=== PATIENT | female | born 1975 ===

== ENCOUNTER → 2020-08-07 11:06 | Outpatient (BNVA) | payer MEDICAID, SELFPAY | PROVIDERS: PCP Nurse Practitioner Family; Referring Provider Nurse Practitioner Family; Visit Provider Nurse Practitioner Gerontology | DX: E11.65 Type 2 diabetes mellitus with hyperglycemia (principal); I10 Essential (primary) hypertension; E78.5 Hyperlipidemia, unspecified; Z79.84 Long term (current) use of oral hypoglycemic drugs | CPT/HCPCS: 99213 ==

== ENCOUNTER 2020-09-09 10:24 | Outpatient (REF) | payer MEDICAID, SELFPAY | END 2020-09-09 10:25 | disposition home or self-care (01) | LOC: HO.LAB 10:24 | PROVIDERS: PCP Registered Nurse; Visit Provider Internal Medicine | DX: Z20.828 Contact with and (suspected) exposure to other viral communicable diseases (principal) | CPT/HCPCS: C9803; U0003 ==

== ENCOUNTER → 2020-09-16 09:39 | Outpatient (BNVA) | payer MEDICAID, SELFPAY | PROVIDERS: Visit Provider Advanced Practice Midwife | DX: Z30.42 Encounter for surveillance of injectable contraceptive (principal) | CPT/HCPCS: 96372; 99211; J1050 ==

== ENCOUNTER 2020-09-17 14:30 | Outpatient (REF) | payer MEDICAID, SELFPAY ==
--- NOTE | 2020-09-17 | CT_ITS ---
EXAMINATION: CT HEAD WITHOUT CONTRAST CLINICAL INFORMATION: Tension headaches. COMPARISON: Brain MRI November 18, 2017. TECHNIQUE: Contiguous axial imaging was performed from the skull base to vertex without intravenous administration of contrast. This CT examination was performed using dose optimization techniques as appropriate, variously including the following: *Automated exposure control *Adjustment of mA and/or kV according to patient size (this includes techniques or standardized protocols for targeted exams where dose is matched to indication/reason for exam; i.e. extremities or head) *Use of iterative reconstruction technique DLP: 799 mGy-cm. FINDINGS: There is no intracranial hemorrhage, extra-axial collection, mass effect, or territorial infarction. The ventricles are normal in size and configuration without evidence of hydrocephalus. The cerebellar tonsils are normally positioned above the foramen magnum. The sella is partially empty. The paranasal sinuses and mastoid air cells are clear. The orbital contents are unremarkable. CT/CT head/brain wo con IMPRESSION: No intracranial abnormality identified.
== END 2020-09-17 14:31 | disposition home or self-care (01) ==
LOC: HO.CT 14:30
PROVIDERS: PCP Registered Nurse; Visit Provider Psychiatry & Neurology Neurology
DX: G43.909 Migraine, unspecified, not intractable, without status migrainosus (principal); G44.209 Tension-type headache, unspecified, not intractable
CPT/HCPCS: 70450

== ENCOUNTER 2021-01-03 17:06 | Emergency (ER) | payer MEDICAID, SELFPAY ==
[2021-01-03 17:11] VITALS: BP 137/81; PULSE 95; RESP 16; TEMP 36.6; O2SAT 97; BMI 27.4
[2021-01-03 17:40] LABS: Appearance Urine HAZY; Color Urine YELLOW; Glucose Urine UA >=1000 MG/DL (NEG); Leukocyte Esterase Urine NEG (NEG); Nitrite Urine NEG (NEG); PH 7.5 (5.0-8.0); Urine Blood TRACE (NEG); Urine Ketones NEG (NEG); Urine Protein NEG (NEG-TRACE)
[2021-01-03 17:57] LABS: Bacteria Urine 1+ /LPF; Squamous Epithelial Cell Urine 1+ /LPF
[2021-01-03 20:12] VITALS: BP 129/78; PULSE 98; RESP 15; TEMP 36.6; O2SAT 100
--- NOTE | 2021-01-03 21:03 | ED.FEMALEGU ---
HPI - Female Genitourinary General Chief complaint: Urogenital-Female Stated complaint: Infection pain Time Seen by Provider: 01/03/21 20:53 Source: patient Mode of arrival: ambulatory Limitations: no limitations History of Present Illness HPI Narrative: Patient comes emergency room complaining of vulvar and labial swelling and discharge. Patient states that yesterday she noticed that the outer labia started becoming itchy, erythematous, and had a whitish thick discharge on the outside. Patient denies vaginal discharge, no bleeding, no suprapubic pain, no abdominal pain. Patient is known to be diabetic Related Data Home Medications Medication Instructions Recorded Confirmed albuterol sulfate 90 mcg/actuation 2 puff INHALATION Q4-6H PRN 08/07/20 08/07/20 aerosol inhaler atorvastatin 20 mg tablet 20 mg PO DAILY 08/07/20 08/07/20 blood sugar diagnostic #10 ea 08/07/20 08/07/20 cetirizine 10 mg capsule 10 mg PO DAILY 08/07/20 08/07/20 cyclobenzaprine 5 mg tablet 5 mg PO BEDTIME PRN 08/07/20 08/07/20 gabapentin 300 mg capsule 300 mg PO TID 08/07/20 08/07/20 lancets 28 gauge #100 ea 08/07/20 08/07/20 lisinopril 5 mg tablet 5 mg PO DAILY 08/07/20 08/07/20 metformin 500 mg tablet 500 mg PO BID 08/07/20 08/07/20 sertraline 50 mg tablet 50 mg PO DAILY 08/07/20 08/07/20 Previous Rx's Medication Instructions Recorded canagliflozin 100 mg tablet 100 mg PO QAM #30 tab 12/14/20 dulaglutide 1.5 mg/0.5 mL 1.5 mg SUBCUT QWEEK 28 Days #2 ml 12/23/20 subcutaneous pen injector clotrimazole [Antifungal 1 appl TOPICAL TID #45 g 01/03/21 (clotrimazole)] Allergies Allergy/AdvReac Type Severity Reaction Status Date / Time No Known Allergies Allergy Verified 08/07/20 11:15 Review of Systems Review of Systems: Constitutional : No Weight loss, No Fever, No Chills, No Night Sweats, No Fatigue, No Malaise ENT/Mouth : No Hearing loss, No Ear Pain, No Nasal Congestion, No Sinus Pain, No Hoarseness, No sore throat, No Rhinorrhea, No Swallowing Difficulty Eyes: No Eye Pain, No Swelling, No Redness, No Foreign Body, No Discharge, No Vision Changes Cardiovascular : No Chest Pain, No SOB, No Dyspnea on Exertion, No Orthopnea, No Edema, No Palpitations Respiratory : No Cough, No Sputum, No Wheezing, No Smoke Exposure, No Dyspnea Gastrointestinal : No Nausea, No Vomiting, No Diarrhea, No Constipation, No abdominal Pain, No Hematochezia, No Melena Genitourinary : no irregular bleeding, No Dysuria, No Urinary Frequency, No Hematuria, No Urinary Incontinence, No Urgency, No Flank Pain, No Urinary Flow Changes, No Hesitancy, complaining of over and labial itching, redness and swelling, and thick white discharge Musculoskeletal : No joint pain, No Myalgias, No Joint Swelling Skin : No Skin Lesions, No rash Neuro : No Weakness, No Numbness, No Paresthesias, No Loss of Consciousness, No Dizziness, No Headache Psych : No Anxiety/Panic, No Depression, No SI/HI/AH/VH, No Social Issues, Heme/Lymph: No Bruising, No Bleeding,No Lymphadenopathy Endocrine : No Polyuria, No Polydipsia, No Temperature Intolerance PMFSH Past Medical History Medical History Chronic migraine Depression Essential hypertension Hyperlipidemia LDL goal <100 Iron deficiency Plantar fasciitis Type 2 diabetes mellitus with hyperglycemia Surgical History Hx of tubal ligation Family History Family History (Updated 08/07/20 @ 11:16 by ZAKIA Humphrey) Father No problems noted. Mother HTN (hypertension) Maternal Grandfather HTN (hypertension) Myocardial infarct Maternal Grandmother Diabetes Maternal Aunt Diabetes Social History Social History (Updated 08/06/20 @ 08:39 by LEO Berrios) Alcohol intake: never Smoking Status: Never smoker Use of substances other than those prescribed or required for medical reasons: No Advance Directives: No Advance Directives Information Provided: No Physical Exam Vital Signs: Vital Signs: Last Vital Signs Temp 97.9 F 01/03/21 20:12 Pulse 90 01/03/21 22:11 Resp 16 01/03/21 22:11 BP 151/89 H 01/03/21 22:11 Pulse Ox 98 01/03/21 22:11 Body Mass Index 27.4 Appearance: Alert. Oriented X3. No acute distress. Eyes: Pupils equal, round and reactive to light. ENT: Pharynx normal. Neck: Normal inspection. Neck supple. No lymph nodes noted. No crepitus CVS: Normal heart rate and rhythm. Pulses normal. Normal S1 and S2 Respiratory: No respiratory distress. Breath sounds normal. No Wheezing. No rales Abdomen: Soft and nontender. No rigidity. No distention. good BS x4 : No vulvar discharged observed, labia majora and minora are erythematous, swollen, discharged in labia minora consistent with candidiasis, right-sided inguinal lymphadenopathy present Skin: Skin warm and dry. Normal skin color. Normal skin turgor. Extremities: No lower extremity edema. No lower extremity edema. No Lacerations. No Rash Neuro: Oriented X 3. No motor deficit. No sensory deficit. Moving all extermities. No slurred speech. Course Course Course Narrative: Labs were ordered due to patient's lymphadenopathy. No white blood cell count, sepsis not suspected, no cellulitis suspected, no Kenneth's gangrene suspected either. LFTs slightly elevated which are chronic, unlikely to have any adverse effects from 1 dose of fluconazole. Patient received 1 dose of oral fluconazole, patient will be given a prescription for home, both treatments recommended since the candidiasis is extensive, unlikely to have good results with topical antifungal by itself. MDM - Female Genitourinary Lab Data Result diagrams: 01/03/21 21:15 01/03/21 21:15 Labs: Lab Results 01/03/21 01/03/21 01/03/21 Range/Units 17:28 17:28 21:15 WBC 7.2 (4.8-10.8) X10*3/uL RBC 4.95 (4.20-5.50) X10*6/uL Hgb 12.8 (12.0-16.0) g/dl Hct 40.3 (37-47) % MCV 81.4 (80-98) fL MCH 25.9 L (27.0-33.0) pg MCHC 31.8 (31.0-35.0) g/dl RDW 13.6 (11.0-16.0) % Plt Count 302 (160-400) X10*3/uL MPV 9.9 (9.4-12.3) fL Immature Gran % (Auto) 0.3 (0.0-0.4) % Neut % (Auto) 76.7 H (45-73) % Lymph % (Auto) 15.8 L (20-40) % Zapata % (Auto) 5.7 (2-11) % Eos % (Auto) 1.2 (0-4) % Baso % (Auto) 0.3 (0-2) % Lymph # (Auto) 1.1 L (1.2-4.9) X10*3/uL Zapata # (Auto) 0.4 (0.1-1.2) X10*3/uL Eos # (Auto) 0.1 (0.0-0.4) X10*3/uL Baso # (Auto) 0.0 (0.0-0.2) X10*3/uL Abs Immat Gran (auto) 0.02 (0.00-0.03) X10*3/uL Absolute Neuts (auto) 5.6 (2.0-8.3) X10*3/uL Absolute Nucleated RBC 0.000 (0.0-0.012) X10*3/uL Nucleated RBC % (auto) 0.0 (0.0-0.2) /100WBC Sodium (135-145) mmol/L Potassium (3.3-5.1) mmol/L Chloride (96-108) mmol/L Carbon Dioxide (22-29) mmol/L Anion Gap (12-20) BUN (9-16) mg/dL Creatinine (0.5-1.4) mg/dL Estim Creat Clear Calc Estimated GFR Random Glucose (60-115) mg/dL Calcium (8.4-10.2) mg/dL Total Bilirubin (0.0-1.0) mg/dL Direct Bilirubin (0.0-0.5) mg/dL AST (5-31) U/L ALT (0-31) U/L Alkaline Phosphatase (39-117) U/L Total Protein (6.5-8.0) g/dL Albumin (3.5-5.0) g/dL Urine Color YELLOW Urine Appearance HAZY Urine pH 7.5 (5.0-8.0) Ur Specific Edmond 1.020 (1.005-1.025) Urine Protein NEG (NEG-TRACE) MG/DL Urine Glucose (UA) >=1000 H (NEG) MG/DL Urine Ketones NEG (NEG) MG/DL Urine Blood TRACE (NEG) Urine Nitrite NEG (NEG) Ur Leukocyte Esterase NEG (NEG) Urine RBC 1-4 (0) /HPF Urine WBC 1-4 (0-4) /HPF Ur Squamous Epith Cells 1+ /LPF Urine Bacteria 1+ /LPF Urine Test NEGATIVE (NEGATIVE) 01/03/21 Range/Units 21:15 WBC (4.8-10.8) X10*3/uL RBC (4.20-5.50) X10*6/uL Hgb (12.0-16.0) g/dl Hct (37-47) % MCV (80-98) fL MCH (27.0-33.0) pg MCHC (31.0-35.0) g/dl RDW (11.0-16.0) % Plt Count (160-400) X10*3/uL MPV (9.4-12.3) fL Immature Gran % (Auto) (0.0-0.4) % Neut % (Auto) (45-73) % Lymph % (Auto) (20-40) % Zapata % (Auto) (2-11) % Eos % (Auto) (0-4) % Baso % (Auto) (0-2) % Lymph # (Auto) (1.2-4.9) X10*3/uL Zapata # (Auto) (0.1-1.2) X10*3/uL Eos # (Auto) (0.0-0.4) X10*3/uL Baso # (Auto) (0.0-0.2) X10*3/uL Abs Immat Gran (auto) (0.00-0.03) X10*3/uL Absolute Neuts (auto) (2.0-8.3) X10*3/uL Absolute Nucleated RBC (0.0-0.012) X10*3/uL Nucleated RBC % (auto) (0.0-0.2) /100WBC Sodium 139 (135-145) mmol/L Potassium 4.7 (3.3-5.1) mmol/L Chloride 100 (96-108) mmol/L Carbon Dioxide 25 (22-29) mmol/L Anion Gap 19 (12-20) BUN 15 (9-16) mg/dL Creatinine 0.75 (0.5-1.4) mg/dL Estim Creat Clear Calc 97.2 Estimated GFR > 60 Random Glucose 159 H (60-115) mg/dL Calcium 9.3 (8.4-10.2) mg/dL Total Bilirubin < 0.2 (0.0-1.0) mg/dL Direct Bilirubin < 0.2 (0.0-0.5) mg/dL AST 57 H (5-31) U/L ALT 87 H (0-31) U/L Alkaline Phosphatase 122 H (39-117) U/L Total Protein 7.8 (6.5-8.0) g/dL Albumin 4.4 (3.5-5.0) g/dL Urine Color Urine Appearance Urine pH (5.0-8.0) Ur Specific Edmond (1.005-1.025) Urine Protein (NEG-TRACE) MG/DL Urine Glucose (UA) (NEG) MG/DL Urine Ketones (NEG) MG/DL Urine Blood (NEG) Urine Nitrite (NEG) Ur Leukocyte Esterase (NEG) Urine RBC (0) /HPF Urine WBC (0-4) /HPF Ur Squamous Epith Cells /LPF Urine Bacteria /LPF Urine Test (NEGATIVE) Discharge Plan Discharge Clinical Impression: Vaginal candidiasis Patient Disposition: Home, Self-Care Instructions: Yeast Infection (ED) Additional Instructions: Please follow-up with your primary care physician tomorrow. If you have any worsening or new symptoms, please return to the emergency room or call 911 Prescriptions: New clotrimazole [Antifungal (clotrimazole)] 1 % cream 1 appl topical TID Qty: 45 RF: 0 No Action canagliflozin [Invokana] 100 mg tablet 100 mg PO QAM Qty: 30 RF: 2 Trulicity 1.5 mg/0.5 mL pen injector 1.5 mg subcut QWEEK 28 Days Qty: 2 RF: 2 lisinopril 5 mg tablet 5 mg PO DAILY RF: 0 atorvastatin 20 mg tablet 20 mg PO DAILY RF: 0 metformin 500 mg tablet 500 mg PO BID RF: 0 (DME) lancets [FreeStyle Lancets] 28 gauge misc See Rx Instructions .ROUTE .MEDSUPPLY Qty: 100 RF: 0 (DME) FreeStyle Lite Strips Strip See Rx Instructions .ROUTE .MEDSUPPLY Qty: 10 RF: 0 gabapentin 300 mg capsule 300 mg PO TID RF: 0 cyclobenzaprine 5 mg tablet 5 mg PO BEDTIME PRNRF: 0 Zyrtec 10 mg capsule 10 mg PO DAILY RF: 0 sertraline [Zoloft] 50 mg tablet 50 mg PO DAILY RF: 0 albuterol sulfate [ProAir HFA] 90 mcg/actuation HFA aerosol inhaler 2 puff inhalation Q4-6H PRNRF: 0
--- NOTE | 2021-01-03 21:04 | PC.NURSE ---
at bedside for evaluation. Patient has a yeast infection and swollen lymph node in her right inner groin. Blood work ordered.
[2021-01-03 21:20] LABS: MANUAL DIFF FLAG NO
[2021-01-03 21:23] LABS: Basophils Percent Auto 0.3 % (0-2); Eosinophils Absolute Auto 0.1 X10*3/uL (0.0-0.4); Eosinophils Percent Auto 1.2 % (0-4); Hematocrit 40.3 % (37-47); Hemoglobin 12.8 g/dl (12.0-16.0); Imm Gran Abs Auto 0.02 X10*3/uL (0.00-0.03); Imm Gran Pct Auto 0.3 % (0.0-0.4); Lymphocytes Absolute Auto 1.1 X10*3/uL (1.2-4.9); Lymphocytes Percent Auto 15.8 % (20-40); Mean Corpuscular HGB Conc 31.8 g/dl (31.0-35.0); Mean Corpuscular Hemoglobin 25.9 pg (27.0-33.0); Mean Corpuscular Volume 81.4 fL (80-98); Mean Platelet Volume 9.9 fL (9.4-12.3); Monocytes Absolute Auto 0.4 X10*3/uL (0.1-1.2); Monocytes Percent Auto 5.7 % (2-11); Neutrophils Absolute Auto 5.6 X10*3/uL (2.0-8.3); Neutrophils Percent Auto 76.7 % (45-73); Platelet Count 302 X10*3/uL (160-400); Red Blood Count 4.95 X10*6/uL (4.20-5.50); Red Cell Distribution Width 13.6 % (11.0-16.0); White Blood Count 7.2 X10*3/uL (4.8-10.8)
[2021-01-03 21:45] LABS: Alanine Aminotransferase 87 U/L (0-31); Albumin Level 4.4 g/dL (3.5-5.0); Alkaline Phosphatase 122 U/L (39-117); Anion Gap 19 (12-20); Aspartate Amino Transferase 57 U/L (5-31); Bilirubin Direct < 0.2 mg/dL (0.0-0.5); Bilirubin Total < 0.2 mg/dL (0.0-1.0); Blood Urea Nitrogen 15 mg/dL (9-16); Calcium 9.3 mg/dL (8.4-10.2); Carbon Dioxide 25 mmol/L (22-29); Chloride 100 mmol/L (96-108); Creatinine Clr Calc Pharmacy 97.2; Estimated Glomerular Filt Rate > 60; Glucose Random 159 mg/dL (60-115); Potassium 4.7 mmol/L (3.3-5.1); Sodium 139 mmol/L (135-145); Total Protein 7.8 g/dL (6.5-8.0)
[2021-01-03 22:11] VITALS: BP 151/89; PULSE 90; RESP 16; O2SAT 98
[2021-01-03 22:11] LABS: UPreg QC Valid YES; Urine Pregnancy NEGATIVE (NEGATIVE)
[2021-01-03] MEDS: Fluconazole 150 MG TABLET PO (23:57)
== END 2021-01-04 00:52 | disposition home or self-care (01) ==
PROVIDERS: Emergency Provider Emergency Medicine
DX: B37.3 Candidiasis of vulva and vagina (principal); R59.1 Generalized enlarged lymph nodes; I10 Essential (primary) hypertension; E11.9 Type 2 diabetes mellitus without complications; E78.5 Hyperlipidemia, unspecified
CPT/HCPCS: 36415; 80048; 80076; 81001; 81025; 85025; 99284

== ENCOUNTER 2021-03-31 10:44 | Outpatient (REF) | payer MEDICAID, SELFPAY ==
[2021-03-31 11:35] LABS: Estimated Average Glucose 200 mg/dL; Hemoglobin A1c % 8.6 %
[2021-03-31 12:12] LABS: Creatinine Urine 165.31 mg/dL; Microalbum/Creatinine Ratio Ur 24.8 ug/mg cr
[2021-03-31 12:12] LABS: Alanine Aminotransferase 25 U/L (0-31); Albumin Level 4.9 g/dL (3.5-5.0); Alkaline Phosphatase 94 U/L (39-117); Anion Gap 15 (12-20); Aspartate Amino Transferase 26 U/L (5-31); Bilirubin Total 0.6 mg/dL (0.0-1.0); Blood Urea Nitrogen 14 mg/dL (9-16); Calcium 9.9 mg/dL (8.4-10.2); Carbon Dioxide 21 mmol/L (22-29); Chloride 105 mmol/L (96-108); Cholesterol 157 mg/dL; Estimated Glomerular Filt Rate > 60; Glucose Fasting 110 mg/dL (60-99); HDL Cholesterol 62 mg/dL; LDL Cholesterol Calculated 84 mg/dl; Potassium 4.7 mmol/L (3.3-5.1); Sodium 136 mmol/L (135-145); Triglycerides 57 mg/dL
[2021-03-31 12:40] LABS: Vitamin B12 759 pg/mL (200-900)
[2021-04-01 06:31] LABS: LDL Cholesterol Direct 75 mg/dL (<100)
== END 2021-03-31 10:45 | disposition home or self-care (01) ==
LOC: HO.LAB 10:44
PROVIDERS: PCP Registered Nurse; Visit Provider Nurse Practitioner Gerontology
DX: E11.65 Type 2 diabetes mellitus with hyperglycemia (principal); E78.5 Hyperlipidemia, unspecified; I10 Essential (primary) hypertension; Z79.899 Other long term (current) drug therapy
CPT/HCPCS: 36415; 80053; 80061; 82043; 82607; 82947; 83036; 83721; 99212

== ENCOUNTER 2021-04-06 03:15 | Emergency (ER) | payer MEDICAID, SELFPAY ==
[2021-04-06 03:22] VITALS: BP 131/76; PULSE 80; RESP 18; TEMP 35.8; O2SAT 97; BMI 27.4
== END 2021-04-06 06:44 | disposition left against medical advice (07) ==
PROVIDERS: Emergency Provider Emergency Medicine
DX: R07.89 Other chest pain (principal)
CPT/HCPCS: 99281; 99282

== ENCOUNTER → 2021-04-15 11:23 | Outpatient (BNVA) | payer MEDICAID, SELFPAY | PROVIDERS: Visit Provider Advanced Practice Midwife ==

== ENCOUNTER 2021-05-07 09:48 | Outpatient (REF) | payer MEDICAID, SELFPAY ==
--- NOTE | ~2021-05-07 | XR_ITS ---
EXAMINATION: XR CERVICAL SPINE CLINICAL INFORMATION: Localized edema. COMPARISON: None TECHNIQUE: Three views of the cervical spine were obtained. FINDINGS: There is normal cervical lordosis. The vertebral heights, alignment and disc heights are normal. No visible acute fracture, dislocation or subluxation seen. The prevertebral soft tissues are normal. There is mild bilateral narrowing of C4-C5 neural foramina from uncovertebral hypertrophic changes. The rest of the neural foramina are patent. No visible acute fracture, dislocation or lytic process seen. The prevertebral soft tissues are normal. XR/XR cervical spine 4V IMPRESSION: Mild bilateral narrowing of C4-C5 neural foramina from uncovertebral hypertrophic changes. No visible acute fracture, dislocation or lytic process seen.
== END 2021-05-07 09:49 | disposition home or self-care (01) ==
LOC: HO.XRAY 09:48
PROVIDERS: Visit Provider Emergency Medicine
DX: R60.0 Localized edema (principal)
CPT/HCPCS: 72050

== ENCOUNTER 2021-05-13 02:45 | Emergency (ER) | payer MEDICAID, SELFPAY ==
[2021-05-13 03:46] VITALS: BP 123/69; PULSE 76; RESP 16; TEMP 36.4; O2SAT 98; BMI 26.9
--- NOTE | 2021-05-13 04:31 | PC.NURSE ---
PT TO ROOM, CHG INTO GOWN, WARM BLK PROVIDED WITH PILLOW, LIGHTS DIM. PT AWAITING FOR MD'S EVAL.
--- NOTE | 2021-05-13 05:31 | ED_ITS ---
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 Patient states that she was evaluated in her primary care provider's office yesterday and was provided with her usual prescription which head otherwise ran out. On further questioning patient states that she has medication for her headache and she is primarily concerned about her sore throat which has been associated with runny nose, cough. Otherwise, patient denies any speech/visual/auditory/motor dysfunction associated with her migraine. Related Data Home Medications Medication Instructions Recorded Confirmed albuterol sulfate 90 mcg/actuation 2 puff INHALATION Q4-6H PRN 08/07/20 03/31/21 aerosol inhaler (ProAir HFA) atorvastatin 20 mg tablet 20 mg PO DAILY 08/07/20 03/31/21 cetirizine 10 mg capsule (Zyrtec) 10 mg PO DAILY 08/07/20 03/31/21 cyclobenzaprine 5 mg tablet 5 mg PO BEDTIME PRN 08/07/20 03/31/21 gabapentin 300 mg capsule 300 mg PO TID 08/07/20 03/31/21 lisinopril 5 mg tablet 5 mg PO DAILY 08/07/20 03/31/21 metformin 500 mg tablet 500 mg PO BID 08/07/20 03/31/21 sertraline 50 mg tablet (Zoloft) 50 mg PO DAILY 08/07/20 03/31/21 Previous Rx's Medication Instructions Recorded clotrimazole 1 % topical cream 1 appl TOPICAL TID #45 g 01/03/21 (Antifungal (clotrimazole)) lancets 33 gauge (TRUEplus Lancets) 1 gauge MISCELLANEOUS TID #100 ea 02/08/21 blood sugar diagnostic (FreeStyle 1 strip MISCELLANEOUS TID #100 02/17/21 Lite Strips) strip dulaglutide 1.5 mg/0.5 mL 1.5 mg SUBCUT QWEEK 28 Days #2 ml 03/07/21 subcutaneous pen injector (Trulicity) canagliflozin 300 mg tablet 300 mg PO QAM #30 tab 03/31/21 (Invokana) Allergies Allergy/AdvReac Type Severity Reaction Status Date / Time No Known Allergies Allergy Verified 04/15/21 11:24 Review of Systems Review of Systems: Pertinent positives and negatives as stated in HPI 10 point review of systems is otherwise negative. [facility] Past Medical History Source: nursing notes reviewed Medical History Chronic migraine Depression Essential hypertension Hyperlipidemia LDL goal <100 Iron deficiency Plantar fasciitis Type 2 diabetes mellitus with hyperglycemia Surgical History Hx of tubal ligation Family History Family History Father No problems noted. Mother HTN (hypertension) Maternal Grandfather HTN (hypertension) Myocardial infarct Maternal Grandmother Diabetes Maternal Aunt Diabetes Social History Social History Household Members: Children Alcohol intake: never Patient Tobacco Use Status: Never used Tobacco Advance Directives: No Advance Directives Information Provided: No Patient : No Physical Exam Vital Signs: Vital Signs: Last Vital Signs Temp 97.6 F 05/13/21 03:46 Pulse 76 05/13/21 03:46 Resp 16 05/13/21 03:46 BP 123/69 05/13/21 03:46 Pulse Ox 98 05/13/21 03:46 Body Mass Index 26.9 VITAL SIGNS: Reviewed. GENERAL: Well developed, well nourished, in no acute distress. HEAD: Normocephalic/atraumatic EYES: PERRLA, EOMI EARS: Ext canals without abnormality, TMs non-bulging and non-erythematous NOSE: Nasal congestion OROPHARYNX: no oral lesions noted, posterior pharynx erythematous with noted tonsillar enlargement/erythema NECK: Supple, no adenopathy LUNGS: Normal breath sounds. No adventitious sounds or accessory muscle use. SpO2<98> CARDIOVASCULAR: Regular rate and rhythm without noted murmurs ABDOMEN: Soft, non-tender, non-distended with bowel sounds. SKIN: Inspection of the skin reveals no rashes NEUROLOGIC: Alert and oriented x 4. Strength and sensation to light touch were grossly intact x 4, no pronator drift, no facial asymmetry Course Course Course Narrative: 45-year-old female with history and clinical presentation c onsistent with currently well managed migraine symptoms and low clinical suspicion for any neurologic abnormality. In addition, patient has sore throat consistent with likely allergic rhinitis, but will rule out less likely strep pharyngitis. On review of all investigations there are no acute findings to suggest strep pharyngitis and patient will be provided with recommendations for allergic rhi nitis and follow-up with her primary care provider. Medical Decision Making Lab Data Labs: Lab Results 05/13/21 05/13/21 Range/Units 05:44 05:51 POC Glucose 166 H (60-115) mg/dL S. pyogenes GrpA MYRON Negative (Negative) Discharge Plan Discharge Clinical Impression: Allergic rhinitis, Post-nasal drip, Migraine Patient Disposition: Home, Self-Care Instructions: Allergic Rhinitis (ED), Postnasal Drip (DC), Pharyngitis (ED), Loratadine (By mouth), Fluticasone (Into the nose) Additional Instructions: 1. Reanude todos los medicamentos caseros seg?n lo prescrito. 2. Recomiende hacer g?rgaras con soluci?n salina (esto se hace combinando tyler de fernandez con agua tibia del grifo) y hacer g?rgaras yessenia 5 minutos, dos veces al d?a, yessenia 3 d?as. 3. Se recomienda comenzar con Claritin y Flonase de venta zulema en vanita de sospecha de s?ntomas relacionados con la alergia. 4. Nicholas un seguimiento con valdez proveedor de atenci?n primaria para jacquie reevaluaci?n y un tratamiento ambulatorio adicional. Regrese a la umang de emergencias por un empeoramiento dayday de los s?ntomas. Prescriptions: No Action lancets [TRUEplus Lancets] 33 gauge misc 1 gauge miscellaneous TID Qty: 100 RF: 11 blood sugar diagnostic [FreeStyle Lite Strips] Strip 1 strip miscellaneous TID Qty: 100 RF: 11 Trulicity 1.5 mg/0.5 mL pen injector 1.5 mg subcut QWEEK 28 Days Qty: 2 RF: 2 clotrimazole [Antifungal (clotrimazole)] 1 % cream 1 appl topical TID Qty: 45 RF: 0 lisinopril 5 mg tablet 5 mg PO DAILY RF: 0 atorvastatin 20 mg tablet 20 mg PO DAILY RF: 0 metformin 500 mg tablet 500 mg PO BID RF: 0 gabapentin 300 mg capsule 300 mg PO TID RF: 0 cyclobenzaprine 5 mg tablet 5 mg PO BEDTIME PRNRF: 0 Zyrtec 10 mg capsule 10 mg PO DAILY RF: 0 sertraline [Zoloft] 50 mg tablet 50 mg PO DAILY RF: 0 albuterol sulfate [ProAir HFA] 90 mcg/actuation HFA aerosol inhaler 2 puff inhalation Q4-6H PRNRF: 0 Invokana 300 mg tablet 300 mg PO QAM Qty: 30 RF: 3 Referrals: [facility] [Primary Care Provider] - 2 days Print Language: Italian
[2021-05-13] MEDS: Ketorolac Tromethamine 15 MG/ML VIAL IM (05:47)
[2021-05-13] MEDS: Acetaminophen 325 MG TABLET 975 MG PO (05:47)
[2021-05-13 05:49] LABS: Glucose, Whole Blood 166 mg/dL (60-115)
[2021-05-13 06:03] LABS: IDNOW Serial# 9DD0AD1C; Strep A Nucleic Acid Negative (Negative)
== END 2021-05-13 06:41 | disposition home or self-care (01) ==
PROVIDERS: Emergency Provider Student in an Organized Health Care Education/Training Program
DX: J30.9 Allergic rhinitis, unspecified (principal); G43.909 Migraine, unspecified, not intractable, without status migrainosus; Z79.899 Other long term (current) drug therapy
CPT/HCPCS: 36415; 82947; 87651; 96372; 99283; 99284; J1885

== ENCOUNTER 2021-05-26 08:34 | Outpatient (REF) | payer MEDICAID, SELFPAY ==
--- NOTE | ~2021-05-26 | XR_ITS ---
EXAMINATION: XR CHEST CLINICAL INFORMATION: Cough COMPARISON: Chest x-ray July 15, 2019 TECHNIQUE: 2 views of the chest were obtained. FINDINGS: Cardiac silhouette is normal in size. The lungs are well aerated. There is no lobar consolidation. No pleural effusion or pneumothorax. No acute osseous abnormality. XR/XR chest 2V IMPRESSION: Stable examination demonstrating no acute pulmonary pathology.
== END 2021-05-26 08:35 | disposition home or self-care (01) ==
LOC: HO.XRAY 08:34
PROVIDERS: Absent Provider Registered Nurse; PCP Registered Nurse; Visit Provider Nurse Practitioner Family
DX: R05 Cough (principal)
CPT/HCPCS: 71046

== ENCOUNTER → 2022-04-19 13:15 | Outpatient (BNVA) | payer MEDICAID, SELFPAY | PROVIDERS: PCP General Practice; Referring Provider Registered Nurse; Visit Provider Nurse Practitioner Family | DX: K21.9 Gastro-esophageal reflux disease without esophagitis (principal); R19.7 Diarrhea, unspecified; E55.9 Vitamin D deficiency, unspecified; K59.04 Chronic idiopathic constipation; Z12.11 Encounter for screening for malignant neoplasm of colon; R10.13 Epigastric pain; Z79.899 Other long term (current) drug therapy | CPT/HCPCS: 99202; 99212 ==

== ENCOUNTER 2022-05-15 04:48 | Emergency (ER) | payer MEDICAID, SELFPAY ==
[2022-05-15 05:56] VITALS: BP 135/77; PULSE 96; RESP 22; TEMP 36.8; O2SAT 96; BMI 25.8
--- NOTE | 2022-05-15 06:53 | ED.GENADULT ---
HPI - General Adult General Chief complaint: General Medical Stated complaint: covid+ , vomiting, congestion, body aches Time Seen by Provider: 05/15/22 06:03 Source: patient, family (Son) and safety and health manager Mode of arrival: ambulatory History of Present Illness HPI narrative: 46-year-old female with history of diabetes and hypertension presents after a family event in [facility] with her son and complaints of not feeling well since Monday on their return from [place] and expresses that she has had body aches, cough, sore throat and congestion. Home COVID-19 test were positive. Patient is vaccinated for COVID Related Data Home Medications Medication Instructions Recorded Confirmed albuterol sulfate 90 mcg/actuation 2 puff inhalation Q4-6H PRN 08/07/20 04/19/22 aerosol inhaler (ProAir HFA) atorvastatin 20 mg tablet 20 mg PO DAILY 08/07/20 04/19/22 cetirizine 10 mg capsule (Zyrtec) 10 mg PO DAILY 08/07/20 04/19/22 cyclobenzaprine 5 mg tablet 5 mg PO BEDTIME PRN 08/07/20 04/19/22 gabapentin 300 mg capsule 300 mg PO TID 08/07/20 03/31/21 lisinopril 5 mg tablet 5 mg PO DAILY 08/07/20 04/19/22 metformin 500 mg tablet 500 mg PO BID 08/07/20 04/19/22 sertraline 50 mg tablet (Zoloft) 50 mg PO DAILY 08/07/20 04/19/22 aluminum-mag hydroxide-simethicone 5 ml PO QID PRN 04/19/22 04/19/22 400 mg-400 mg-40 mg/5 mL oral susp (Mylanta Maximum Strength) Previous Rx's Medication Instructions Recorded clotrimazole 1 % topical cream 1 appl topical TID #45 grams 01/03/21 (Antifungal (clotrimazole)) blood sugar diagnostic (FreeStyle 1 strip miscellaneous TID for 02/17/21 Lite Strips) diabetes mellitus #100 strips dulaglutide 1.5 mg/0.5 mL 1.5 mg (0.5 mL) subcut QWEEK #2 mL 02/04/22 subcutaneous pen injector (Trulicity) canagliflozin 300 mg tablet 300 mg PO QAM #30 tabs 02/09/22 (Invokana) lancets 33 gauge (TRUEplus Lancets) 1 gauge miscellaneous TID for 02/16/22 diabetes mellitus #100 ea docusate sodium 100 mg capsule 100 mg PO BEDTIME #90 caps 04/19/22 famotidine 40 mg tablet 40 mg PO BEDTIME #90 tabs 04/19/22 pantoprazole 40 mg tablet,delayed 40 mg PO DAILY #90 tabs 04/19/22 release sennosides 8.6 mg tablet (Natural 8.6 mg PO BEDTIME constipation #90 04/19/22 Senna Laxative) tabs benzonatate 200 mg capsule 200 mg PO TID PRN cough #10 caps 05/15/22 Allergies Allergy/AdvReac Type Severity Reaction Status Date / Time No Known Allergies Allergy Verified 04/19/22 13:30 Review of Systems Review of Systems: Pertinent positives and negatives as stated in HPI 10 point review of systems is otherwise negative PMFSH Past Medical History Source: nursing notes reviewed Medical History Chronic migraine Depression Essential hypertension Hyperlipidemia LDL goal <100 Iron deficiency Plantar fasciitis Type 2 diabetes mellitus with hyperglycemia Surgical History Hx of tubal ligation Family History Family History Father No problems noted. Mother HTN (hypertension) Maternal Grandfather HTN (hypertension) Myocardial infarct Maternal Grandmother Diabetes Maternal Aunt Diabetes Social History Social History Household Members: Children Alcohol intake: never Patient Tobacco Use Status: Never used Tobacco Advance Directives: No Advance Directives Information Provided: No Physical Exam ED Vital Signs: Vital Signs - 24 hr 05/15/22 05:56 Temperature 98.3 F Pulse Rate 96 Respiratory Rate 22 H Blood Pressure 135/77 Pulse Oximetry 96 Oxygen Delivery Method Room Air BMI result Body Mass Index 25.8 VITAL SIGNS: Reviewed. GENERAL: Well developed, well nourished, in no acute distress. HEAD: Normocephalic/atraumatic EYES: PERRLA, EOMI EARS: Ext canals without abnormality OROPHARYNX: no oral lesions noted, posterior pharynx clear LUNGS: Normal breath sounds. No adventitious sounds or accessory muscle use. SpO2<96> CARDIOVASCULAR: Regular rate and rhythm without noted murmurs ABDOMEN: Soft, non-tender, non-distended with bowel sounds. MUSCULOSKELETAL: No tenderness, deformities, or effusions noted on gross inspection. EXTREMITIES: No cyanosis, clubbing or edema. SKIN: Inspection of the skin reveals no rashes NEUROLOGIC: Alert and oriented x 4. Strength and sensation to light touch were grossly intact x 4. Course Course Course Narrative: 46-year-old female with positive COVID-19 exposure and home test showing positive COVID-19 with symptoms of viral syndrome. On review of all investigations patient is noted to be confirmed to be COVID-19 positive. Patient received cough medicine as well as antipyretics and analgesics. She is otherwise discharged home in stable condition. Medical Decision Making Lab Data Labs: Lab Results 05/15/22 Range/Units 07:05 COVID-19 ([facility]) Positive A (Negative) COVID-19 Clin Com See Note Discharge Plan Discharge Clinical Impression: Viral syndrome, Type 2 diabetes mellitus with hyperglycemia, Essential hypertension, Lab test positive for detection of COVID-19 virus Patient Disposition: Home, Self-Care Instructions: Viral Syndrome (ED), COVID-19 (Coronavirus Disease 2019) (ED) Additional Instructions: 1. Reanudar todos los medicamentos caseros seg?n lo prescrito. Elaine Tylenol/ibuprofeno de venta zulema seg?n sea necesario para randall corporales, randall de calvin, fiebre superior a 100.4. 2. Le mclean diagnosticado COVID-19 y debe aislarse yessenia los pr?ximos 5 d?as y luego seguir todas las [facility] y de [place] para la cuarentena y el regreso al trabajo. 3. Seguimiento con valdez proveedor de atenci?n primaria en los pr?ximos 1 o 2 d?as para jacquie reevaluaci?n a blake?s de jacquie shara de telemedicina. Regrese a la umang de emergencias por cualquier empeoramiento dayday de los s?ntomas. Prescriptions: New benzonatate 200 mg capsule 200 mg PO TID PRN (Reason: cough) Qty: 10 0RF No Action blood sugar diagnostic [FreeStyle Lite Strips] Strip 1 strip miscellaneous TID Qty: 100 11RF Trulicity 1.5 mg/0.5 mL pen injector 1.5 mg subcut QWEEK Qty: 2 0RF Invokana 300 mg tablet 300 mg PO QAM Qty: 30 4RF lancets [TRUEplus Lancets] 33 gauge misc 1 gauge miscellaneous TID Qty: 100 11RF clotrimazole [Antifungal (clotrimazole)] 1 % cream 1 appl topical TID Qty: 45 0RF Rx Instructions: Until better lisinopril 5 mg tablet 5 mg PO DAILY atorvastatin 20 mg tablet 20 mg PO DAILY metformin 500 mg tablet 500 mg PO BID gabapentin 300 mg capsule 300 mg PO TID cyclobenzaprine 5 mg tablet 5 mg PO BEDTIME PRN Zyrtec 10 mg capsule 10 mg PO DAILY sertraline [Zoloft] 50 mg tablet 50 mg PO DAILY albuterol sulfate [ProAir HFA] 90 mcg/actuation HFA aerosol inhaler 2 puff inhalation Q4-6H PRN alum-mag hydroxide-simeth [Mylanta Maximum Strength] 400-400-40 mg/5 mL suspension 5 ml PO QID PRN docusate sodium 100 mg capsule 100 mg PO BEDTIME Qty: 90 3RF pantoprazole 40 mg tablet,delayed release (DR/EC) 40 mg PO DAILY Qty: 90 2RF Rx Instructions: take one tablet half an hour before breakfast sennosides [Natural Senna Laxative] 8.6 mg tablet 8.6 mg PO BEDTIME Qty: 90 3RF famotidine 40 mg tablet 40 mg PO BEDTIME Qty: 90 3RF Referrals: Lissy Gracia MD [Primary Care Provider] - Stand Alone Forms: Work/School Release Print Language: Albanian
[2022-05-15] MEDS: Acetaminophen 325 MG TABLET 975 MG PO (07:01)
[2022-05-15] MEDS: Ibuprofen 400 MG TABLET PO (07:02)
[2022-05-15 07:30] LABS: COVID-19 Test Positive (Negative)
[2022-05-15] MEDS: Benzonatate 100 MG CAPSULE 200 MG PO (07:44)
== END 2022-05-15 08:16 | disposition home or self-care (01) ==
PROVIDERS: Emergency Medicine; Emergency Provider Student in an Organized Health Care Education/Training Program; PCP General Practice
DX: U07.1 COVID-19 (principal); R05.9 Cough, unspecified; M79.10 Myalgia, unspecified site; E11.9 Type 2 diabetes mellitus without complications; I10 Essential (primary) hypertension; Z79.899 Other long term (current) drug therapy; Z79.4 Long term (current) use of insulin
CPT/HCPCS: 87635; 99283

== ENCOUNTER → 2022-06-22 12:10 | Outpatient (BNVA) | payer MEDICAID, SELFPAY | PROVIDERS: PCP General Practice; Visit Provider Nurse Practitioner Family | DX: K21.9 Gastro-esophageal reflux disease without esophagitis (principal); K59.04 Chronic idiopathic constipation; Z79.899 Other long term (current) drug therapy | CPT/HCPCS: 99212 ==

== ENCOUNTER 2022-06-28 11:56 | Outpatient (REF) | payer MEDICAID, SELFPAY ==
[2022-06-28 14:02] LABS: TSH reflex Free T4 1.78 uIU/mL (0.32-4.0)
[2022-06-28 14:19] LABS: Folate 14.4 ng/mL (> or = 4.0); Vitamin B12 420 pg/mL (200-900)
[2022-07-04 16:06] LABS: Vitamin D 25-OH, D2 <4 ng/mL; Vitamin D 25-OH, D3 40 ng/mL; Vitamin D 25-OH, Total 40 ng/mL (30-100)
== END 2022-06-28 11:57 | disposition home or self-care (01) ==
LOC: HO.LAB 11:56
PROVIDERS: PCP General Practice; Visit Provider Nurse Practitioner Family
DX: R19.7 Diarrhea, unspecified (principal); E55.9 Vitamin D deficiency, unspecified
CPT/HCPCS: 36415; 82306; 82607; 82746; 84443

== ENCOUNTER 2022-06-30 15:42 | Outpatient (REF) | payer MEDICAID, SELFPAY ==
--- NOTE | ~2022-06-30 | MM_ITS ---
EXAMINATION: MM SCREENING DIGITAL BREAST TOMOSYNTHESIS, BILATERAL CLINICAL INFORMATION: Screening. Asymptomatic. The lifetime risk of breast cancer based on the Tyrer-Cuzick Model is 20%. COMPARISON: Mammography: 10/30/2018, 10/10/2017, 09/29/2016 TECHNIQUE: Digital breast tomosynthesis is performed in both the craniocaudal and mediolateral oblique views along with computer-aided detection (CAD). Synthesized 2D images are generated from the tomosynthesis. FINDINGS: There are scattered areas of fibroglandular density (ACR BI-RADS breast composition Category b). There are no significant masses, abnormal calcifications, or other abnormalities. Parenchymal pattern is similar to prior studies. The axilla and skin contours are unremarkable. MM/MM tomosynthesis screening BI IMPRESSION: No mammographic evidence of malignancy. ASSESSMENT: BI-RADS 1: Negative RECOMMENDATION: Routine annual mammography screening. This patient's information was entered into a reminder system with a target due date for their next mammogram.
== END 2022-06-30 15:43 | disposition home or self-care (01) ==
LOC: HO.MAMMO 15:42
PROVIDERS: PCP General Practice; Visit Provider General Practice
DX: Z12.31 Encounter for screening mammogram for malignant neoplasm of breast (principal)
CPT/HCPCS: 77063; 77067

== ENCOUNTER → 2022-08-18 14:25 | Outpatient (BNVA) | payer MEDICAID, SELFPAY | PROVIDERS: PCP General Practice; Visit Provider Surgery Vascular Surgery | DX: I83.12 Varicose veins of left lower extremity with inflammation (principal) | CPT/HCPCS: 99212 ==

== ENCOUNTER 2022-09-12 09:53 | Outpatient (REF) | payer MEDICAID, SELFPAY ==
[2022-09-15 04:59] LABS: HPV 16 RNA NOT DETECTED (NOT DETECTED); HPV mRNA E6/E7 rflx Detected (Not Detected)
== END 2022-09-12 09:54 | disposition home or self-care (01) ==
LOC: HO.LNP 09:53
PROVIDERS: Visit Provider Advanced Practice Midwife
DX: Z01.419 Encounter for gynecological examination (general) (routine) without abnormal findings (principal)
CPT/HCPCS: 87624; 87625; 88142

== ENCOUNTER → 2022-09-21 08:00 | Outpatient (BNVA) | payer MEDICAID, SELFPAY | PROVIDERS: PCP General Practice; Referring Provider General Practice; Visit Provider Nurse Practitioner Family | DX: Z01.818 Encounter for other preprocedural examination (principal); K59.04 Chronic idiopathic constipation; K21.9 Gastro-esophageal reflux disease without esophagitis | CPT/HCPCS: 99212 ==

== ENCOUNTER 2023-04-21 09:56 | Outpatient (REF) | payer MEDICAID, SELFPAY ==
[2023-04-22 12:43] LABS: BV Int Neg Control Negative (Negative); BV Int Pos Control Positive (Positive)
== END 2023-04-21 09:57 | disposition home or self-care (01) ==
LOC: HO.LNP 09:56
PROVIDERS: PCP General Practice; Visit Provider Advanced Practice Midwife
DX: N89.8 Other specified noninflammatory disorders of vagina (principal); B37.31 Acute candidiasis of vulva and vagina; E11.65 Type 2 diabetes mellitus with hyperglycemia
CPT/HCPCS: 87480; 87510; 87660; 99212

== ENCOUNTER 2023-05-04 13:07 | Outpatient (AMB) | payer MEDICAID, SELFPAY ==
[2023-05-04 13:21] VITALS: BMI 26.8
--- NOTE | 2023-05-04 13:21 | AM.OFFVISNUR ---
Intake Vital Signs 05/04/23 13:21 Height 5 ft 6 in Weight 75.353 kg BMI 26.8 Intake Visit Reasons: DEPO Allergies No Known Allergies Allergy (Verified 04/21/23 10:09) Nursing Note Irene is here for her restart of Depo-Provera for heavy menstrual bleeding. LMP 05/02/23. Pt has also had TL. Follo wup in 12 weeks for next Depo-provera inj. Pt verbs understanding Office Procedures Depo Questionnaire If YES to any of the following questions, please consult a provider. Date of last injection: 05/04/23 Date of last menstrual period: 05/02/23 Date of last gynecology exam: 04/21/23 Menstrual pattern since last injection has been: Not Applicable Irregular bleeding?: Not Applicable Breast lumps or other breast changes?: Not Applicable Changes in weight or appetite?: Not Applicable Depression or changes in mood?: Not Applicable Abnormal hair growth or loss?: Not Applicable Skin problems (rash, acne, discoloration)?: Not Applicable Pain at the injection site?: Not Applicable Headaches?: Not Applicable Nervousness?: Not Applicable Abdominal pain or cramping?: Not Applicable Dizziness or nausea?: Not Applicable Fatigue or weakness?: Not Applicable Decrease in sexual drive?: Not Applicable Chest pain or shortness of breath?: Not Applicable Swelling in arms or legs?: Not Applicable Any other problems or concerns?: Initiation of Depo-Provera Form completed by?: Christa Mckee LPN Office Meds Depo-Provera Performing Provider: Clare Jackson CNM Administered by: Miroslava Mckee LPN on 05/04/23 13:22 Dose Route Admin Location Lot Number Expiration Date [facility] Training Lead 150 mg IM left deltoid [id number] 10/14/24 01381-775-75 MYLAN Coding Level of Care Code Established Pt Est Pt Level 1 (71048) Patient Type Established History Problem Focused Exam Problem Focused Medical Decision Making Straight Forward Diagnoses Time Spent (min) 15 Assessment & Plan Assessment & Plan Orders: Orders AMB Medroxyprogesterone Injection Patient Supplied Today N92.0 - Excessive and frequent menstruation with regular cycle
== END 2023-05-04 13:17 | disposition home or self-care (01) ==
LOC: HO.HWS 13:07
PROVIDERS: PCP General Practice; Visit Provider Advanced Practice Midwife
DX: N92.0 Excessive and frequent menstruation with regular cycle (principal)

== ENCOUNTER → 2023-05-04 13:07 | Outpatient (BNVA) | payer MEDICAID, SELFPAY | PROVIDERS: PCP General Practice; Visit Provider Advanced Practice Midwife | DX: N92.0 Excessive and frequent menstruation with regular cycle (principal) | CPT/HCPCS: 96372; 99211; J1050 ==

== ENCOUNTER 2023-06-05 | Outpatient (REF) | payer MEDICAID, SELFPAY ==
[2023-06-06 12:20] LABS: Influenza A PCR NEGATIVE (Negative); Influenza B PCR NEGATIVE (Negative); Resp Syncy Virus RNA Qual PCR NEGATIVE (Negative); SARS COV2 PCR INHOUSE NEGATIVE (Negative)
== END 2023-06-05 00:01 | disposition home or self-care (01) ==
LOC: HO.HHCLNP
PROVIDERS: Visit Provider Pediatrics
DX: Z20.822 Contact with and (suspected) exposure to COVID-19 (principal); J02.9 Acute pharyngitis, unspecified
CPT/HCPCS: 0241U; 87070

== ENCOUNTER 2023-06-05 14:09 | Outpatient (REF) | payer MEDICAID, SELFPAY ==
--- NOTE | ~2023-06-05 | XR_ITS ---
EXAMINATION: XR CERVICAL SPINE CLINICAL INFORMATION: Neck pain COMPARISON: Previous x-ray April 2023 TECHNIQUE: 3 views of the cervical spine were obtained. FINDINGS: The head is tilted to the right. Bone alignment is otherwise normal. No fracture or dislocation. Normal disc spaces. It may be bilateral facet arthritis. Normal prevertebral soft tissues. XR/XR cervical spine 3V IMPRESSION: Head tilt to the right.
== END 2023-06-05 14:10 | disposition home or self-care (01) ==
LOC: HO.XRAY 14:09
PROVIDERS: Absent Provider General Practice; PCP General Practice; Visit Provider Student in an Organized Health Care Education/Training Program
DX: M54.2 Cervicalgia (principal)
CPT/HCPCS: 72040

== ENCOUNTER 2023-11-06 14:30 | Outpatient (REF) | payer MEDICAID, SELFPAY ==
[2023-11-06 16:18] LABS: MANUAL DIFF FLAG NO
[2023-11-06 16:24] LABS: Basophils Percent Auto 0.3 % (0-2); Eosinophils Absolute Auto 0.1 X10*3/uL (0.0-0.4); Eosinophils Percent Auto 0.7 % (0-4); Hematocrit 39.6 % (37.0-47.0); Hemoglobin 12.5 g/dl (12.0-16.0); Imm Gran Abs Auto 0.03 X10*3/uL (0.00-0.03); Imm Gran Pct Auto 0.3 % (0.0-0.4); Lymphocytes Absolute Auto 2.1 X10*3/uL (1.2-4.9); Lymphocytes Percent Auto 23.7 % (20-40); Mean Corpuscular HGB Conc 31.6 g/dl (31.0-35.0); Mean Corpuscular Hemoglobin 25.8 pg (27.0-33.0); Mean Corpuscular Volume 81.6 fL (80.0-98.0); Mean Platelet Volume 10.7 fL (9.4-12.3); Monocytes Absolute Auto 0.5 X10*3/uL (0.1-1.2); Monocytes Percent Auto 5.3 % (2-11); Neutrophils Percent Auto 69.7 % (45-73); Platelet Count 378 X10*3/uL (160-400); Red Blood Count 4.85 X10*6/uL (4.20-5.50); Red Cell Distribution Width 13.5 % (11.0-16.0); White Blood Count 8.7 X10*3/uL (4.8-10.8)
[2023-11-06 17:57] LABS: Creatinine Urine 59.51 mg/dL; Microalbum/Creatinine Ratio Ur 23.5 ug/mg cr (<30)
[2023-11-06 18:04] LABS: Alanine Aminotransferase 19 U/L (0-31); Albumin Level 4.7 g/dL (3.5-5.0); Alkaline Phosphatase 99 U/L (39-117); Anion Gap 15 (12-20); Aspartate Amino Transferase 14 U/L (5-31); Bilirubin Total 0.2 mg/dL (0.0-1.0); Blood Urea Nitrogen 19 mg/dL (9-16); Calcium 9.9 mg/dL (8.4-10.2); Carbon Dioxide 23 mmol/L (22-29); Chloride 107 mmol/L (96-108); Estimated Glomerular Filt Rate > 60; Glucose Random 189 mg/dL (60-115); Sodium 141 mmol/L (135-145); Total Protein 8.3 g/dL (6.5-8.0)
== END 2023-11-06 14:31 | disposition home or self-care (01) ==
LOC: HO.HHCL 14:30
PROVIDERS: Visit Provider General Practice
DX: E61.1 Iron deficiency (principal); E11.59 Type 2 diabetes mellitus with other circulatory complications
CPT/HCPCS: 36415; 80053; 82043; 82570; 85025

== ENCOUNTER 2023-11-20 01:00 | Emergency (ER) | payer MEDICAID, SELFPAY ==
--- NOTE | ~2023-11-20 | XR_ITS ---
EXAMINATION: XR CHEST CLINICAL INFORMATION: Dyspnea COMPARISON: 05/26/2021 TECHNIQUE: Frontal view of the chest was obtained. FINDINGS: The lungs are clear with no focal consolidation. No evidence of pneumothorax, pulmonary edema, or pleural effusions. The cardiomediastinal silhouette is unremarkable. No acute osseous findings. XR/XR chest 1V IMPRESSION: No acute cardiopulmonary findings.
[2023-11-20 01:10] VITALS: BP 147/92; PULSE 85; RESP 18; TEMP 36.3; O2SAT 97; BMI 28.4
[2023-11-20 02:48] LABS: IDNOW Serial# 08D9AD1C; Strep A Nucleic Acid Negative (Negative)
[2023-11-20 02:52] LABS: COVID-19 Test Negative (Negative); IDNOW Serial# 152EDE1D; IDNOW Serial# 9DB6401D; Influenza A Negative (Negative); Influenza B2 Negative (Negative)
== END 2023-11-20 03:23 | disposition left against medical advice (07) ==
PROVIDERS: Emergency Provider Emergency Medicine; PCP General Practice
DX: R05.9 Cough, unspecified (principal); R06.02 Shortness of breath; Z11.52 Encounter for screening for COVID-19; Z79.899 Other long term (current) drug therapy
CPT/HCPCS: 71045; 87502; 87635; 87651; 99281; 99283

== ENCOUNTER 2023-11-21 10:36 | Emergency (ER) | payer MEDICAID, SELFPAY ==
--- NOTE | ~2023-11-21 | CT_ITS ---
EXAMINATION: CT CHEST WITHOUT CONTRAST CLINICAL INFORMATION: Cough and fatigue, malaise. COMPARISON: None available. TECHNIQUE: Multidetector volumetric CT imaging of the chest was done. Axial MIP volume rendering provided. Sagittal and coronal reformatted images were obtained. This CT examination was performed using dose optimization techniques as appropriate, variously including the following: *Automated exposure control *Adjustment of mA and/or kV according to patient size (this includes techniques or standardized protocols for targeted exams where dose is matched to indication/reason for exam; i.e. extremities or head) *Use of iterative reconstruction technique DLP: 266 mGy-cm FINDINGS: B OPERATOR: Expanded lungs. LUNGS: The lungs are clear with no evidence of inflammation or nodules. MEDIASTINUM: The thyroid lobes are symmetrical and normal. The central trachea and the bronchi are widely patent. CORONARY ARTERY CALCIFICATION: None visualized on this study. PLEURA: There is no pleural effusion. No pleural mass or thickening. AXILLA: No lymphadenopathy. UPPER ABDOMEN: Visualized liver, spleen, pancreas appears normal. Suspect radiopaque gallstone. OSSEOUS STRUCTURES: No aggressive lytic or sclerotic process seen. CT/CT chest wo IV con IMPRESSION: Unremarkable CT chest exam. Fleischner guidelines were followed.
[2023-11-21 11:07] VITALS: BP 184/83; PULSE 84; RESP 20; TEMP 36.6; O2SAT 97; BMI 28.5
--- NOTE | 2023-11-21 11:10 | ED_ITS ---
HPI - General Adult General Chief complaint: General Medical Stated complaint: Cough Chest Discomfort Time Seen by Provider: 11/21/23 11:20 Source: patient Mode of arrival: ambulatory Limitations: no limitations History of Present Illness HPI narrative: Patient is a 47 yr old female with a past medical history of heavy menses, varicose veins, depression, DM2, HLD, HTN, plantar fasciitis, iron deficiency presenting with productive cough, headache, SOB, sub sternal chest pain and high blood pressures at the walk in at [facility]. Patient was sent by the [facility] for evaluaiton. She reports intermittent wheezing that improves w/ use of inhaler. Denies fevers, chills, vision changes, dizziness, weakness, abd pain, nausea, vomiting. NIHSS-0 Related Data Home Medications Medication Instructions Recorded Confirmed albuterol sulfate 90 mcg/actuation 2 puff inhalation Q4-6H PRN 08/07/20 04/21/23 aerosol inhaler (ProAir HFA) atorvastatin 20 mg tablet 20 mg PO DAILY 08/07/20 04/21/23 cetirizine 10 mg capsule (Zyrtec) 10 mg PO DAILY 08/07/20 04/21/23 cyclobenzaprine 5 mg tablet 5 mg PO BEDTIME PRN 08/07/20 04/21/23 gabapentin 300 mg capsule 300 mg PO TID 08/07/20 04/21/23 lisinopril 5 mg tablet 5 mg PO DAILY 08/07/20 04/21/23 metformin 500 mg tablet 500 mg PO BID 08/07/20 04/21/23 sertraline 50 mg tablet (Zoloft) 50 mg PO DAILY 08/07/20 04/21/23 aluminum-mag hydroxide-simethicone 5 ml PO QID PRN 04/19/22 04/21/23 400 mg-400 mg-40 mg/5 mL oral susp (Mylanta Maximum Strength) Previous Rx's Medication Instructions Recorded clotrimazole 1 % topical cream 1 appl topical TID #45 grams 01/03/21 (Antifungal (clotrimazole)) blood sugar diagnostic (FreeStyle 1 strip miscellaneous TID for 02/17/21 Lite Strips) diabetes mellitus #100 strips dulaglutide 1.5 mg/0.5 mL 1.5 mg (0.5 mL) subcut QWEEK #2 mL 02/04/22 subcutaneous pen injector ([employer]) lancets 33 gauge (TRUEplus Lancets) 1 gauge miscellaneous TID for 02/16/22 diabetes mellitus #100 ea benzonatate 200 mg capsule 200 mg PO TID PRN cough #10 caps 05/15/22 canagliflozin 300 mg tablet 300 mg PO QAM #30 tabs 07/13/22 (Invokana) bisacodyl 5 mg tablet,delayed 10 mg (2 x 5 mg) PO ONCE 1 day #2 09/21/22 release (Dulcolax (bisacodyl)) tabs polyethylene glycol 3350 17 238 g PO ONCE #238 grams 09/21/22 gram/dose oral powder (Miralax) sennosides 8.6 mg tablet (Natural 17.2 mg (2 x 8.6 mg) PO BEDTIME 12/29/22 Senna Laxative) constipation #180 tabs docusate sodium 100 mg capsule 100 mg PO BEDTIME #90 caps 03/23/23 famotidine 40 mg tablet 40 mg PO BEDTIME #90 tabs 03/23/23 fluconazole 150 mg tablet 150 mg PO Q3D 2 doses #2 tabs 04/21/23 medroxyprogesterone 150 mg/mL 150 mg IM Q12W #1 mL 04/21/23 intramuscular suspension (Depo-Provera) miconazole nitrate 2 % vaginal 1 appful vaginal BEDTIME 7 days 04/21/23 cream (Miconazole-7) #45 grams metronidazole 0.75 % (37.5 mg/5 1 appful vaginal BEDTIME 5 days 05/03/23 gram) vaginal gel #70 grams pantoprazole 40 mg tablet,delayed 40 mg PO DAILY #90 tabs 09/12/23 release doxycycline hyclate 100 mg capsule 100 mg PO BID 10 days #20 caps 11/21/23 prednisone 20 mg tablet 40 mg (2 x 20 mg) PO DAILY 5 days 11/21/23 #10 tabs Allergies Allergy/AdvReac Type Severity Reaction Status Date / Time No Known Allergies Allergy Verified 11/21/23 11:13 Review of Systems 2 Review of Systems: Constitutional : No Weight loss, No Fever, No Chills, No Fatigue, No Malaise ENT/Mouth : No sore throat, No Rhinorrhea Eyes: No Eye Pain, No Swelling, No Redness Cardiovascular : No Chest Pain, + SOB, No Dyspnea on Exertion, No Orthopnea, No Edema, No Palpitations Respiratory : + Cough, No Sputum, No Wheezing Gastrointestinal : No Nausea, No Vomiting, No Diarrhea, No Constipation, No abdominal Pain, No Hematochezia, No Melena Genitourinary : No Dysuria, No Urinary Frequency, No Hematuria, Musculoskeletal : No joint pain, No Myalgias, No Joint Swelling, + upper back pain Skin : No Skin Lesions, No rash Neuro : No Weakness, No Numbness, No Dizziness, + Headache Psych : No Anxiety/Panic, No Depression Heme/Lymph: No Bruising, No Bleeding,No Lymphadenopathy Endocrine : No Polyuria, No Polydipsia All other systems reviewed and are negative Yes all other systems are reviewed and are negative [facility] Past Medical History Attestation statement: The following information was validated with the patient. Source: old records reviewed and nursing notes reviewed Medical History Chronic migraine Depression Essential hypertension Hyperlipidemia LDL goal <100 Iron deficiency Plantar fasciitis Type 2 diabetes mellitus with hyperglycemia Surgical History Hx of tubal ligation Family History Family History Father No problems noted. Mother HTN (hypertension) Maternal Grandfather HTN (hypertension) Myocardial infarct Maternal Grandmother Diabetes Breast cancer Maternal Aunt Diabetes Social History Social History Household Members: Children Alcohol intake: never Patient Tobacco Use Status: Never used Tobacco Smoked in Last 30 Days: No Use of substances other than those prescribed or required for medical reasons: No Advance Directives: No Advance Directives Information Provided: Yes Physical Exam ED Vital Signs: Vital Signs - 24 hr 11/21/23 11:07 11/21/23 11:40 11/21/23 14:06 Temperature 97.9 F Pulse Rate 84 82 84 Respiratory Rate 20 14 16 Blood Pressure 184/83 H 159/94 H 161/86 H Pulse Oximetry 97 98 100 Oxygen Delivery Method Room Air Room Air Room Air BMI result Body Mass Index 28.5 vss hypertension 184/83 --> 159/94 Appearance: Alert.? Oriented X3.? No acute distress.? Head: Normocephalic, atraumatic, no step-offs or deformities Eyes: Pupils equal, round and reactive to light.? Neck: Normal inspection.? Neck supple.? CVS: Normal heart rate and rhythm.? Pulses normal.? Respiratory: No respiratory distress.? Breath sounds normal.? Abdomen: Soft and nontender.? Skin: Skin warm and dry.? Normal skin color.? Normal skin turgor.? Extremities: No lower extremity edema.? No calf ttp. 5/5 strength to bilateral upper and lower extremities Back: No midline tenderness, no C-spine tenderness, full range of motion, no CVA tenderness bilaterally Neuro: Oriented X 3.? No motor deficit.? No sensory deficit. CN 2-12 intact Course Course Course Narrative: This is a rapid medical exam. Deferred additional HPI, ROS, PE to primary provider. 47 yo female with history of asthma, DM, fibromylagia, HTN, HLD here from [facility] walk in with concern for 1 month of chest pain, cough, upper back pain and headache with high blood pressure. Patient reports intermittently compliant with blood pressure medication. LWCT yesterday (had cxr then). Will obtain labs, EKG VSS Reevaluation(s) Reevaluation #1: CBC unremarkable. Chemistry unremarkable. Negative troponin x2 , nonischemic EKG. D-dimer less than 150. Unlikely PE. Patient also PERC negative. Chest CT unremarkable. Patient feeling better. Will discharge with doxycycline, prednisone. Educated patient on diagnosis and treatment plan, answered all question, patient verbalizes understanding. At this time patient will be discharged home, advised to return with new or worsening symptoms. Educated on worrisome signs and symptoms and when to return. At this time I feel comfortable discharge home. Time: 11:56 Medications Administered Discontinued Medications Generic Name Dose Route Start Last Admin Trade Name Freq PRN Reason Stop Dose Admin Ketorolac Tromethamine 30 mg 11/21/23 14:05 11/21/23 14:12 Ketorolac Tromethamine 30 Mg/Ml Vial IVPUSH 11/21/23 14:06 30 mg ONCE ONE Administration Medical Decision Making Medical Decision Making MDM Narrative: Patient is a 47 yr old female preents with productive cough, headache, SOB, chest pain and high blood pressures. PE benin Most likely acute URI vs bronchitis. Unlikely UT, pneumonia, aortic dissection, heart failure, PE, ARDS. Plan labs, imaging Differential Diagnosis Differential Diagnoses: The differential diagnosis associated with the presentation includes Most likely acute URI vs bronchitis. Unlikely UT, pneumonia, aortic dissection, heart failure, PE, ARDS. Admission/Observation Consideration of admission/observation: Escalation of care including admission/observation considered Consult Healthcare Provider Management of the patient was discussed with: Primary Care Provider (Expect called in from [facility].) Lab Data MDM Lab Attestation statement: I reviewed the patient's lab results. CBC unremarkable CMP unremarkable PT, INR both WNL D-dimer negative 11/21/23 11:46 11/21/23 11:46 Labs: Lab Results 11/21/23 11/21/23 Range/Units 11:46 14:07 WBC 6.9 (4.8-10.8) X10*3/uL RBC 4.81 (4.20-5.50) X10*6/uL Hgb 12.4 (12.0-16.0) g/dl Hct 37.8 (37.0-47.0) % MCV 78.6 L (80.0-98.0) fL MCH 25.8 L (27.0-33.0) pg MCHC 32.8 (31.0-35.0) g/dl RDW 13.8 (11.0-16.0) % Plt Count 339 (160-400) X10*3/uL MPV 9.6 (9.4-12.3) fL Immature Gran % (Auto) 0.3 (0.0-0.4) % Neut % (Auto) 70.3 (45-73) % Lymph % (Auto) 22.4 (20-40) % Swift % (Auto) 5.8 (2-11) % Eos % (Auto) 0.9 (0-4) % Baso % (Auto) 0.3 (0-2) % Lymph # (Auto) 1.6 (1.2-4.9) X10*3/uL Swift # (Auto) 0.4 (0.1-1.2) X10*3/uL Eos # (Auto) 0.1 (0.0-0.4) X10*3/uL Baso # (Auto) 0.0 (0.0-0.2) X10*3/uL Abs Immat Gran (auto) 0.02 (0.00-0.03) X10*3/uL Absolute Neuts (auto) 4.9 (2.0-8.3) x10*3/uL Absolute Nucleated RBC 0.000 (0.0-0.012) X10*3/uL Nucleated RBC % (auto) 0.0 (0.0-0.2) /100WBC PT 11.7 (11.1-13.3) SEC INR 1.0 (0.9-1.1) D-Dimer High Sensitivty < 150 NG/ML Sodium 141 (135-145) mmol/L Potassium 3.9 (3.3-5.1) mmol/L Chloride 107 (96-108) mmol/L Carbon Dioxide 23 (22-29) mmol/L Anion Gap 15 (12-20) BUN 15 (9-16) mg/dL Creatinine 0.72 (0.5-1.4) mg/dL Estim Creat Clear Calc 100.9 Estimated GFR > 60 Random Glucose 108 (60-115) mg/dL Calcium 9.4 (8.4-10.2) mg/dL Total Bilirubin 0.5 (0.0-1.0) mg/dL Direct Bilirubin 0.2 (0.0-0.5) mg/dL AST 18 (5-31) U/L ALT 20 (0-31) U/L Alkaline Phosphatase 90 (39-117) U/L Troponin I High Sens < 2.7 < 2.7 (<3.5-17.0) ng/L Total Protein 8.0 (6.5-8.0) g/dL Albumin 4.6 (3.5-5.0) g/dL Independent Interpretation I performed an independent interpretation of an: EKG (Vent. Rate : 081 BPM Atrial Rate : 081 BPM P-R Int : 162 ms QRS Dur : 086 ms QT Int : 358 ms P-R-T Axes : 056 037 -10 degrees QTc Int : 415 ms Normal sinus rhythm T wave abnormality, consider inferior ischemia Abnormal ECG When compared with ECG of 14-MAY-2019 23:08, N) and CT Scan (CT/CT chest wo IV con IMPRESSION: Unremarkable CT chest exam. Fleischner guidelines were followed.) Interpretation: Vent. Rate : 081 BPM Atrial Rate : 081 BPM P-R Int : 162 ms QRS Dur : 086 ms QT Int : 358 ms P-R-T Axes : 056 037 -10 degrees QTc Int : 415 ms Normal sinus rhythm T wave abnormality, consider inferior ischemia Abnormal ECG When compared with ECG of 14-MAY-2019 23:08, No significant change was found Radiology Impression Discussion of test interpretation with radiology: I have reviewed the radiologist's reading. Radiologist Impression: CT/CT chest wo IV con IMPRESSION: Unremarkable CT chest exam. Fleischner guidelines were followed. External Record Review External record reviewed: Inpatient record, Outpatient record, Prior outpatient labs, Prior outpatient radiology, Primary care record and Outside ED record Chronic Conditions Patient?s care impacted by: Hypertension Critical Care Time Critical Care Time Critical Care Time: No Discharge Plan Discharge Clinical Impression: Bronchitis Patient Disposition: Home, Self-Care Instructions: Acute Bronchitis (ED) Additional Instructions: Take your medications as prescribed. If you were prescribed antibiotics today, it is important that you take your medication to their entirety, do not skip any doses, do not finish them early. Follow-up with your primary care provider this week. Return to the emergency department with new or worsening symptoms. Such as fevers, chills, chest pain, shortness of breath, nausea, vomiting, dizziness, headache, vision changes, lethargy In case of emergency call 911 CT/CT chest wo IV con IMPRESSION: Unremarkable CT chest exam. Fleischner guidelines were followed. Prescriptions: New doxycycline hyclate 100 mg capsule 100 mg PO BID 10 Days Qty: 20 0RF prednisone 20 mg tablet 40 mg PO DAILY 5 Days Qty: 10 0RF No Action blood sugar diagnostic [FreeStyle Lite Strips] Strip 1 strip miscellaneous TID Qty: 100 11RF Trulicity 1.5 mg/0.5 mL pen injector 1.5 mg subcut QWEEK Qty: 2 0RF lancets [TRUEplus Lancets] 33 gauge misc 1 gauge miscellaneous TID Qty: 100 11RF Invokana 300 mg tablet 300 mg PO QAM Qty: 30 0RF sennosides [Natural Senna Laxative] 8.6 mg tablet 17.2 mg PO BEDTIME Qty: 180 1RF docusate sodium 100 mg capsule 100 mg PO BEDTIME Qty: 90 3RF famotidine 40 mg tablet 40 mg PO BEDTIME Qty: 90 3RF metronidazole 0.75 % (37.5mg/5 gram) gel 1 appful vaginal BEDTIME 5 Days Qty: 70 0RF pantoprazole 40 mg tablet,delayed release (DR/EC) 40 mg PO DAILY Qty: 90 2RF Rx Instructions: take one tablet half an hour before breakfast clotrimazole [Antifungal (clotrimazole)] 1 % cream 1 appl topical TID Qty: 45 0RF Rx Instructions: Until better benzonatate 200 mg capsule 200 mg PO TID PRN (Reason: cough) Qty: 10 0RF lisinopril 5 mg tablet 5 mg PO DAILY atorvastatin 20 mg tablet 20 mg PO DAILY metformin 500 mg tablet 500 mg PO BID gabapentin 300 mg capsule 300 mg PO TID cyclobenzaprine 5 mg tablet 5 mg PO BEDTIME PRN Zyrtec 10 mg capsule 10 mg PO DAILY sertraline [Zoloft] 50 mg tablet 50 mg PO DAILY albuterol sulfate [ProAir HFA] 90 mcg/actuation HFA aerosol inhaler 2 puff inhalation Q4-6H PRN alum-mag hydroxide-simeth [Mylanta Maximum Strength] 400-400-40 mg/5 mL suspension 5 ml PO QID PRN bisacodyl [Dulcolax (bisacodyl)] 5 mg tablet,delayed release (DR/EC) 10 mg PO ONCE 1 Days Qty: 2 0RF Rx Instructions: take 2 tabs at noon the day before your colonoscopy polyethylene glycol 3350 [Miralax] 17 gram/dose powder 238 g PO ONCE Qty: 238 0RF Rx Instructions: As directed by gastroenterology department at [facility] medroxyprogesterone [Depo-Provera] 150 mg/mL suspension 150 mg IM Q12W Qty: 1 5RF Rx Instructions: Start in 1st couple of days of next menses. miconazole nitrate [Miconazole-7] 2 % cream 1 appful vaginal BEDTIME 7 Days Qty: 45 2RF Rx Instructions: Use p.r.n. for yeast infection fluconazole 150 mg tablet 150 mg PO Q3D 0 Days Qty: 2 2RF Rx Instructions: may repeat second dose 72 hrs after first dose if symptoms persist Referrals: ED Physician,Generic [Physician] - 2 days Stand Alone Forms: Work/School Release
--- NOTE | 2023-11-21 11:14 | ECG_ITS ---
Test Reason : CP Blood Pressure : / mmHG Vent. Rate : 081 BPM Atrial Rate : 081 BPM P-R Int : 162 ms QRS Dur : 086 ms QT Int : 358 ms P-R-T Axes : 056 037 -10 degrees QTc Int : 415 ms Normal sinus rhythm T wave abnormality, consider inferior ischemia Abnormal ECG When compared with ECG of 14-MAY-2019 23:08, No significant change was found Referred By: Katina Riley Electronically Signed By:DELLA ESQUIVEL
[2023-11-21 11:40] VITALS: BP 159/94; PULSE 82; RESP 14; O2SAT 98
[2023-11-21 11:51] LABS: MANUAL DIFF FLAG NO
[2023-11-21 11:53] LABS: Basophils Percent Auto 0.3 % (0-2); Eosinophils Absolute Auto 0.1 X10*3/uL (0.0-0.4); Eosinophils Percent Auto 0.9 % (0-4); Hematocrit 37.8 % (37.0-47.0); Hemoglobin 12.4 g/dl (12.0-16.0); Imm Gran Abs Auto 0.02 X10*3/uL (0.00-0.03); Imm Gran Pct Auto 0.3 % (0.0-0.4); Lymphocytes Absolute Auto 1.6 X10*3/uL (1.2-4.9); Lymphocytes Percent Auto 22.4 % (20-40); Mean Corpuscular HGB Conc 32.8 g/dl (31.0-35.0); Mean Corpuscular Hemoglobin 25.8 pg (27.0-33.0); Mean Corpuscular Volume 78.6 fL (80.0-98.0); Mean Platelet Volume 9.6 fL (9.4-12.3); Monocytes Absolute Auto 0.4 X10*3/uL (0.1-1.2); Monocytes Percent Auto 5.8 % (2-11); Neutrophils Absolute Auto 4.9 x10*3/uL (2.0-8.3); Neutrophils Percent Auto 70.3 % (45-73); Platelet Count 339 X10*3/uL (160-400); Red Blood Count 4.81 X10*6/uL (4.20-5.50); Red Cell Distribution Width 13.8 % (11.0-16.0); White Blood Count 6.9 X10*3/uL (4.8-10.8)
[2023-11-21 12:00] LABS: Prothrombin Time 11.7 SEC (11.1-13.3)
[2023-11-21 12:14] LABS: Alanine Aminotransferase 20 U/L (0-31); Albumin Level 4.6 g/dL (3.5-5.0); Alkaline Phosphatase 90 U/L (39-117); Anion Gap 15 (12-20); Aspartate Amino Transferase 18 U/L (5-31); Bilirubin Direct 0.2 mg/dL (0.0-0.5); Bilirubin Total 0.5 mg/dL (0.0-1.0); Blood Urea Nitrogen 15 mg/dL (9-16); Calcium 9.4 mg/dL (8.4-10.2); Carbon Dioxide 23 mmol/L (22-29); Chloride 107 mmol/L (96-108); Creatinine Clr Calc Pharmacy 100.9; Estimated Glomerular Filt Rate > 60; Glucose Random 108 mg/dL (60-115); Potassium 3.9 mmol/L (3.3-5.1); Sodium 141 mmol/L (135-145)
[2023-11-21 12:22] LABS: D Dimer High Sensitivity < 150 NG/ML
[2023-11-21 12:43] LABS: Troponin-I High Sensitivity < 2.7 ng/L (<3.5-17.0)
[2023-11-21 14:06] VITALS: BP 161/86; PULSE 84; RESP 16; O2SAT 100
[2023-11-21] MEDS: Ketorolac Tromethamine 30 MG/ML VIAL IVPUSH (14:12)
[2023-11-21 14:39] LABS: Troponin-I High Sensitivity < 2.7 ng/L (<3.5-17.0)
[2023-11-21 15:24] VITALS: BP 159/94; PULSE 92; RESP 14; O2SAT 100
== END 2023-11-21 15:40 | disposition home or self-care (01) ==
PROVIDERS: Nurse Practitioner Family; Physician Assistant; Emergency Provider Emergency Medicine; PCP General Practice
DX: J40 Bronchitis, not specified as acute or chronic (principal); R07.9 Chest pain, unspecified; R06.2 Wheezing; R05.9 Cough, unspecified; R53.83 Other fatigue; I10 Essential (primary) hypertension; E11.9 Type 2 diabetes mellitus without complications; E78.5 Hyperlipidemia, unspecified; R51.9 Headache, unspecified; R06.02 Shortness of breath
CPT/HCPCS: 36415; 71250; 80048; 80076; 84484; 85025; 85379; 85610; 93005; 99284; 99285; J1885

== ENCOUNTER → 2023-11-21 11:14 | Outpatient (BNV) | payer MEDICAID, SELFPAY | PROVIDERS: Emergency Provider Emergency Medicine; PCP General Practice; Visit Provider Internal Medicine | DX: R07.9 Chest pain, unspecified (principal) | CPT/HCPCS: 93010 ==

== ENCOUNTER 2023-11-22 13:04 | Outpatient (REF) | payer MEDICAID, SELFPAY ==
[2023-11-23 03:38] LABS: CT PCR NOT DETECTED (Not Detect.); NG PCR NOT DETECTED (Not Detect.)
[2023-11-23 11:12] LABS: BV Int Neg Control Negative (Negative); BV Int Pos Control Positive (Positive)
[2023-11-29 03:29] LABS: HPV 16 RNA NOT DETECTED (NOT DETECTED); HPV mRNA E6/E7 rflx Detected (Not Detected)
== END 2023-11-22 13:05 | disposition home or self-care (01) ==
LOC: HO.LNP 13:04
PROVIDERS: PCP General Practice; Visit Provider Advanced Practice Midwife
DX: Z01.419 Encounter for gynecological examination (general) (routine) without abnormal findings (principal); Z11.51 Encounter for screening for human papillomavirus (HPV); B37.31 Acute candidiasis of vulva and vagina
CPT/HCPCS: 0353U; 87480; 87510; 87624; 87625; 87660; 88142; 99396

== ENCOUNTER 2023-11-22 13:04 | Outpatient (AMB) | payer MEDICAID, SELFPAY ==
[2023-11-22 13:09] VITALS: BP 112/70; BMI 28.6
--- NOTE | 2023-11-22 13:09 | MHC.OFFVIS ---
Intake Vital Signs 11/22/23 13:09 Height 5 ft 6 in Weight 177 lb BMI 28.6 BP 112/70 Intake Visit Reasons: Annual Intake Note: vaginal itching Manufacturing Maintenance Technician Required: Yes Manufacturing Maintenance Technician Language: Yi Information Interpreted: non-clinical & clinical Goring Cutter: Goring Cutter Present (Ramirezyn) Allergies Seasonal Allergies Allergy (Mild, Verified 11/22/23 13:14) Runny Nose Medication List - Last Reconciled 11/22/23 by Clare Jackson CNM albuterol sulfate 90 mcg/actuation (ProAir HFA) 2 puffs inhalation Q4-6H PRN alum-mag hydroxide-simeth 400-400-40 mg/5 mL (Mylanta Maximum Strength) 5 mL PO QID PRN atorvastatin 20 mg PO DAILY benzonatate 200 mg PO TID PRN bisacodyl (Dulcolax (bisacodyl)) 10 mg (2 x 5 mg) PO ONCE 1 day blood sugar diagnostic (FreeStyle Lite Strips) 1 strip miscellaneous TID canagliflozin (Invokana) 300 mg PO QAM cetirizine (Zyrtec) 10 mg PO DAILY clotrimazole 1% (Antifungal (clotrimazole)) 1 appl topical TID cyclobenzaprine 5 mg PO BEDTIME PRN docusate sodium 100 mg PO BEDTIME doxycycline hyclate 100 mg PO BID 10 days dulaglutide (Trulicity) 1.5 mg (0.5 mL) subcut QWEEK famotidine 40 mg PO BEDTIME fluconazole 150 mg PO Q3D 2 doses gabapentin 300 mg PO TID ketorolac 10 mg PO TID PRN 5 days lancets (TRUEplus Lancets) 1 gauge miscellaneous TID lisinopril 5 mg PO DAILY medroxyprogesterone (Depo-Provera) 150 mg IM Q12W metformin 500 mg PO BID metronidazole 0.75%(37.5mg/5gram) 1 appful vaginal BEDTIME 5 days pantoprazole 40 mg PO DAILY polyethylene glycol 3350 (Miralax) 238 grams PO ONCE prednisone 40 mg (2 x 20 mg) PO DAILY 5 days sennosides (Natural Senna Laxative) 17.2 mg (2 x 8.6 mg) PO BEDTIME sertraline (Zoloft) 50 mg PO DAILY Is last menstrual period known: Yes Last menstrual period: 11/14/23 Post menopausal: No HPI Annual HPI Details Patient is here because she is here for an annual exam but she is also worried about a previous positive HPV results on a Pap smear that was done in 2021 and she is worried about it. She also had a really bad migraine headache yesterday and came here to same day care and they had her go to the hospital because her blood pressure was very very very high. She was seen there and her blood pressure was high they gave her medication and helped with the blood pressure and headache she is on a medicine for high blood pressure but it low does and she said she had never had a blood pressure that high before and it scared her. She has made a call to her primary care provider and is waiting on an appointment for follow-up and she will be seeing her here at the [facility]. Her last period was November 14. She also says she knows that she should in but she wears panty liners and because of that and also if her blood sugars are high it makes her have more of a yeast infection and she knows about the connection she says her sugars were good today. She has having a little bit of yeast infection with vaginal itching and its whenever her blood sugars are high she can not say how long it has been going on because it it totally is in relation to her blood sugars. [facility] Medical History Plantar fasciitis Chronic migraine Iron deficiency Depression Hyperlipidemia LDL goal <100 Essential hypertension Type 2 diabetes mellitus with hyperglycemia Surgical History Hx of tubal ligation Family History Father No problems noted. Mother HTN (hypertension) Maternal Grandfather HTN (hypertension) Myocardial infarct Maternal Grandmother Diabetes Breast cancer Maternal Aunt Diabetes Social History Household Members: Children Alcohol intake: never Patient Tobacco Use Status: Never used Tobacco Female Reproductive History Menstrual Age of Menarche: 10 Duration of menses: 3-5 days Date of last menstrual period: 11/14/23 control method: other (Tubal ligation) Total pregnancies: 7 Full term: 5 Number of Living Children: 5 Ab spontaneous: 2 Date of last pap smear: 09/12/22 (+HPV) History of abnormal pap smear: Yes Date of Mammogram: 06/30/22 Physical Exam Vital Signs: Last Vital Signs BP 112/70 11/22/23 13:09 BMI result Body Mass Index 28.6 Const General: healthy appearing, comfortable, no acute distress, well developed and alert Nutritional Appearance: average body habitus Orientation/consciousness: patient oriented x3 Limitations: no limitations HEENT Head: Yes normocephalic Neck Neck: Yes normal visual inspection Chest Chest palpation & inspection: normal inspection of the chest Breast/axilla inspection: normal inspection of the breasts and normal inspection of the axillae Breast/axilla palpation: normal palpation of the breasts and normal palpation of the axillae Resp Effort & Inspection: normal respiratory effort GI Inspection: Yes normal to inspection, No Abdominal wall edema and No distended Palpation (GI): Soft to palpation and nontender Other: Patient is fair-skinned vulva slightly pink and dry consistent with fabiola menopausal changes and mild yeast. Vagina itself moist cervix multiparous very tightly closed bled with Pap discharge in vagina very normal appearing clear with no abnormal discharge cervix mobile nontender uterus difficult to feel but not tender and not enlarged adnexa nontender good tone with Kegel. General: Yes bladder normal to palpation External Female Exam: normal external appearance and normal appearance of the urethra Speculum Exam - Vagina: normal appearance of the vagina, normal palpation and normal vaginal discharge Speculum Exam - Cervix: normal appearance of the cervix, normal palpation and nontender Bimanual exam- vagina & uterus: normal bimanual exam, normal palpation, uterine size normal, bladder normal to palpation, consistency normal, normal palpation, uterine mobility normal, uterine shape normal, No Cervical tenderness present, non-tender and no cervical motion tenderness Bimanual Exam- Adnexa, other: normal adnexae, no masses, normal and No adnexal tenderness Neuro General: patient oriented x3 Assessment & Plan Assessment & Plan (1) Yeast infection involving the vagina and surrounding area: Code(s): B37.31 - Acute candidiasis of vulva and vagina (2) Hx of tubal ligation: Code(s): Z98.51 - Tubal ligation status (3) Cervical cancer screening: Comment: 09/12/2022 Pap is negative but with positive HPV. Repeat Pap in 1 year.; Pap with HPV co testing done 11/22/2023, await results Code(s): Z12.4 - Encounter for screening for malignant neoplasm of cervix (4) Well woman exam with routine gynecological exam: Code(s): Z01.419 - Encounter for gynecological examination (general) (routine) without abnormal findings (5) Type 2 diabetes mellitus with hyperglycemia: Code(s): E11.65 - Type 2 diabetes mellitus with hyperglycemia (6) Essential hypertension: Code(s): I10 - Essential (primary) hypertension Plan -----Discussed in this visit the following: healthy balanced diet, regular and consistent exercise, getting recommended health screens, doing the best she can for her particular health concerns, kegel exercises, pap smear screening and followup recommendations, mammography screening and SBE, normal changes in cycles in her life stage--- . Pap smear was done and she is concerned about what the results might show and so I did inform her that we will let her know when we get the results and make recommendations and then if she does have an abnormal Pap she will be referred to Dr. Anderson for a colposcopy in further evaluation from there. Her vulva was slightly picking in concordance with a mild yeast infection and she is very aware of the connection with elevated blood sugars and panty liners and knows she should not use them. She was happy about her good blood sugar this morning. She is worried about the blood pressure issue as well but she will be following up with her primary care provider soon. She says she has her mammogram scheduled for tomorrow. For the yeast I am sending a prescription to [facility] for miconazole 7 cream that she can use when she feels she needs it I am sending 3 refills as well. I told her there was no harm in using it this way and this way she could save what she does not use for when she needs it. Orders: Orders Bacterial Vaginosis Panel Today B37.31 - Acute candidiasis of vulva and vagina CT NG by PCR Today B37.31 - Acute candidiasis of vulva and vagina Pap Smear Today Z12.4 - Encounter for screening for malignant neoplasm of cervix Medications: New miconazole nitrate 2% (Miconazole-7) 1 appful vaginal BEDTIME 7 days 45 grams 3RF Coding Level of Care Code Est Pt Prev Care 40-64y(23142) Diagnoses Yeast infection involving the vagina and surrounding area B37.31 Hx of tubal ligation Z98.51 Cervical cancer screening Z12.4 Well woman exam with routine gynecological exam Z01.419 Type 2 diabetes mellitus with hyperglycemia, without long-term current use of insulin E11.65 Essential hypertension I10
== END 2023-11-22 14:01 | disposition home or self-care (01) ==
LOC: HO.HWSM 13:04
PROVIDERS: PCP General Practice; Visit Provider Advanced Practice Midwife
DX: B37.31 Acute candidiasis of vulva and vagina (principal); Z98.51 Tubal ligation status; Z12.4 Encounter for screening for malignant neoplasm of cervix; Z01.419 Encounter for gynecological examination (general) (routine) without abnormal findings; E11.65 Type 2 diabetes mellitus with hyperglycemia; I10 Essential (primary) hypertension
CPT/HCPCS: 99396

== ENCOUNTER 2023-12-06 00:59 | Emergency (ER) | payer MEDICAID, SELFPAY ==
--- NOTE | ~2023-12-06 | XR_ITS ---
EXAMINATION: XR CHEST CLINICAL INFORMATION: Cough. COMPARISON: None available. TECHNIQUE: Frontal view of the chest was obtained. FINDINGS: No significant abnormality is noted involving the heart, lungs, mediastinum, bony thorax or soft tissues. XR/XR chest 1V IMPRESSION: Unremarkable examination.
[2023-12-06 01:07] VITALS: BP 155/83; PULSE 83; RESP 18; TEMP 37.2; O2SAT 96; BMI 28.2
== END 2023-12-06 07:57 | disposition left against medical advice (07) ==
PROVIDERS: Emergency Provider Emergency Medicine
DX: R05.9 Cough, unspecified (principal); Z53.21 Procedure and treatment not carried out due to patient leaving prior to being seen by health care provider
CPT/HCPCS: 57454; 71045; 81025; 99281; 99283

== ENCOUNTER 2023-12-06 10:29 | Outpatient (REF) | payer MEDICAID, SELFPAY ==
[2023-12-06 12:12] LABS: Monotest Negative (Negative)
== END 2023-12-06 10:30 | disposition home or self-care (01) ==
LOC: HO.HHCL 10:29
PROVIDERS: Visit Provider Emergency Medicine
DX: R05.9 Cough, unspecified (principal)
CPT/HCPCS: 36415; 86308; 87070

== ENCOUNTER 2023-12-06 12:22 | Outpatient (AMB) | payer MEDICAID, SELFPAY ==
--- NOTE | 2023-12-06 12:57 | MHC.OFFVIS ---
Intake Vital Signs 12/06/23 13:07 Height 5 ft 6 in Weight 174 lb 2.643 oz BMI 28.1 BP 118/74 Intake Visit Reasons: Colposcopy Process Validation Engineer Required: Yes Process Validation Engineer Language: Check Cashier Name: Shantel BAILEY Information Interpreted: non-clinical & clinical Correctional Sergeant: Correctional Sergeant Present (Shantel BAILEY) Accompanied by: Self / Same As Patient Allergies Seasonal Allergies Allergy (Mild, Verified 12/06/23 13:07) Runny Nose Is last menstrual period known: Yes Last menstrual period: 11/14/23 HPI HPI Comments History of Present Illness Details Presenting for colposcopy for abnormal Pap smear showing ascus/HPV positive PFSH Medical History Plantar fasciitis Chronic migraine Iron deficiency Depression Hyperlipidemia LDL goal <100 Essential hypertension Type 2 diabetes mellitus with hyperglycemia Surgical History Hx of tubal ligation Family History Father No problems noted. Mother HTN (hypertension) Maternal Grandfather HTN (hypertension) Myocardial infarct Maternal Grandmother Diabetes Breast cancer Maternal Aunt Diabetes Social History Household Members: Children Alcohol intake: never Patient Tobacco Use Status: Never used Tobacco Female Reproductive History Menstrual Age of Menarche: 10 Date of last menstrual period: 11/14/23 Review of Systems Const All systems reviewed & are unremarkable except as noted in HPI and below Reports as per HPI and Reports no additional complaints GI Reports no additional complaints Reports no additional complaints Physical Exam Vital Signs: Last Vital Signs BP 118/74 12/06/23 13:07 BMI result Body Mass Index 28.1 Office Procedures Colposcopy Before the procedure was started discussed with the patient the procedure, alternatives & all the risks associated with the procedure (bleeding, infection, injury to vagina, bladder, vessels, possible need for transfusion with all its risks) then patient signed the consent Pap smear = LSIL Urine test done in the office was negative Speculum inserted, acetic acid used Colposcopy done Transformation zone seen, acetowhite lesions identified at 6+12+1+4 o?clock, cervical biopsies taken from 6+12+1+4 o?clock, ECC done afterwards. Vaginoscopy of the upper vagina showed no evidence of any aceto-white lesions Monsel solution used for hemostasis. The patient tolerated well . At the end the patient was instructed to call if temp>100.4, abdominal pain, n/v, bleeding; The patient was given the following instructions: nothing per vagina, no intercourse or bath tub use. All questions answered the patient verbalized understanding. Instructed the patient to make an appointment in 2 weeks for follow-up This note was generated with a voice recognition program. Some errors may have been overlooked during the review of this note. Sometimes these errors may affect the content or meaning of a given sentence. [id number]-[id number] of cervix including upper vagina with biopsy and ECC Procedure code (CPT) selection complete Results AMB Test Urine AMB Test Urine Negative Last Edit by Shantel Lynch CMA on 12/06/23 13:16 Results Reviewed Results Reviewed: Laboratory Last Values Tst Clinic Negative 12/06/23 13:15 Assessment & Plan Assessment & Plan (1) ASCUS with positive high risk HPV cervical: Code(s): R87.610 - Atypical squamous cells of undetermined significance on cytologic smear of cervix (ASC-US); R87.810 - Cervical high risk human papillomavirus (HPV) DNA test positive Plan: Colposcopy done, see procedure Orders: Orders AMB HCG Urine Test Today Z32.02 - Encounter for test, result negative AMB Colposcopy Today R87.610 - Atypical squamous cells of undetermined significance on cytologic smear of cervix (ASC-US), R87.810 - Cervical high risk human papillomavirus (HPV) DNA test positive Coding Level of Care Code Procedure Only Diagnoses ASCUS with positive high risk HPV cervical R87.610; R87.810 CPT Codes Colposcopy - CPT: 05974-[id number] of cervix including upper vagina with biopsy and ECC ([id number])
[2023-12-06 13:07] VITALS: BP 118/74; BMI 28.1
== END 2023-12-06 13:34 | disposition home or self-care (01) ==
LOC: HO.HWS 12:22
PROVIDERS: Visit Provider Obstetrics & Gynecology
DX: R87.610 Atypical squamous cells of undetermined significance on cytologic smear of cervix (ASC-US) (principal); R87.810 Cervical high risk human papillomavirus (HPV) DNA test positive; Z32.02 Encounter for pregnancy test, result negative
CPT/HCPCS: 57454

== ENCOUNTER 2023-12-06 13:35 | Outpatient (REF) | payer MEDICAID, SELFPAY | END 2023-12-06 13:36 | disposition home or self-care (01) | LOC: HO.LNP 13:35 | PROVIDERS: Visit Provider Obstetrics & Gynecology | DX: R87.610 Atypical squamous cells of undetermined significance on cytologic smear of cervix (ASC-US) (principal); R87.810 Cervical high risk human papillomavirus (HPV) DNA test positive | CPT/HCPCS: 88305 ==

== ENCOUNTER 2023-12-20 18:05 | Outpatient (REF) | payer MEDICAID, SELFPAY | END 2023-12-20 18:06 | disposition home or self-care (01) | LOC: HO.HHCLNP 18:05 | PROVIDERS: Visit Provider Registered Nurse | DX: R09.81 Nasal congestion (principal) | CPT/HCPCS: 87102; 87106 ==

== ENCOUNTER 2023-12-25 09:40 | Outpatient (REF) | payer MEDICAID, SELFPAY ==
[2023-12-25 11:12] LABS: MANUAL DIFF FLAG NO
[2023-12-25 11:38] LABS: Basophils Percent Auto 0.6 % (0-2); Eosinophils Absolute Auto 0.1 X10*3/uL (0.0-0.4); Eosinophils Percent Auto 1.5 % (0-4); Hematocrit 40.7 % (37.0-47.0); Hemoglobin 12.8 g/dl (12.0-16.0); Imm Gran Abs Auto 0.01 X10*3/uL (0.00-0.03); Imm Gran Pct Auto 0.2 % (0.0-0.4); Lymphocytes Absolute Auto 1.8 X10*3/uL (1.2-4.9); Lymphocytes Percent Auto 33.7 % (20-40); Mean Corpuscular HGB Conc 31.4 g/dl (31.0-35.0); Mean Corpuscular Hemoglobin 25.4 pg (27.0-33.0); Mean Corpuscular Volume 80.8 fL (80.0-98.0); Mean Platelet Volume 10.1 fL (9.4-12.3); Monocytes Absolute Auto 0.4 X10*3/uL (0.1-1.2); Monocytes Percent Auto 7.2 % (2-11); Neutrophils Absolute Auto 3.1 x10*3/uL (2.0-8.3); Neutrophils Percent Auto 56.8 % (45-73); Platelet Count 389 X10*3/uL (160-400); Red Blood Count 5.04 X10*6/uL (4.20-5.50); Red Cell Distribution Width 13.6 % (11.0-16.0); White Blood Count 5.4 X10*3/uL (4.8-10.8)
[2023-12-25 11:43] LABS: INTERNATIONAL NORM RATIO 0.9 (0.9-1.1); Prothrombin Time 10.8 SEC (11.1-13.3)
[2023-12-25 11:45] LABS: Partial Thromboplastin Time 33.2 SEC (26.0-36.8)
[2023-12-25 12:02] LABS: Cholesterol 145 mg/dL (<200); HDL Cholesterol 73 mg/dL (>40); LDL Cholesterol Calculated 64 mg/dL (<100); Triglycerides 44 mg/dL (<150)
== END 2023-12-25 09:41 | disposition home or self-care (01) ==
LOC: HO.HHCL 09:40
PROVIDERS: Visit Provider General Practice
DX: N87.0 Mild cervical dysplasia (principal); D69.9 Hemorrhagic condition, unspecified; E11.65 Type 2 diabetes mellitus with hyperglycemia
CPT/HCPCS: 36415; 80061; 85025; 85610; 85730; 99212

== ENCOUNTER 2023-12-25 13:09 | Outpatient (AMB) | payer MEDICAID, SELFPAY ==
--- NOTE | 2023-12-25 13:40 | A.OFFVIS_ITS ---
Intake Vital Signs 12/25/23 13:43 Height 5 ft 6 in Weight 174 lb 2.643 oz BMI 28.1 BP 130/88 Intake Visit Reasons: colpo results Upper Inspector Required: Yes Upper Inspector Language: Social Work Instructor Name: Shantel Lynch LEO Information Interpreted: non-clinical & clinical Accompanied by: Self / Same As Patient Allergies Seasonal Allergies Allergy (Mild, Verified 12/25/23 13:44) Runny Nose Post menopausal: Yes HPI HPI Comments History of Present Illness Details Presenting post colpo for follow-up. The patient is doing well with no complaints. The pathology showed the following: A. Endocervix, curettage: Low-grade squamous intraepithelial lesion (mild dysplasia, DEE I); scant endocervical glandular epithelium present. B. Cervix, 1:00, biopsy: Squamous mucosa; negative for dysplasia; no endocervical glandular component present. C. Cervix, 4:00, biopsy: Squamous and endocervical glandular mucosa; negative for dysplasia. D. Cervix, 6:00, biopsy: Squamous mucosa with inflammation and reactive changes; negative for dysplasia; no endocervical glandular component present. E. Cervix, 11:00, biopsy: Squamous mucosa; negative for dysplasia; no endocervical glandular component present. F. Cervix, 12:00, biopsy: Squamous mucosa; negative for dysplasia; no endocervi tonja glandular component present. Comment: The few atypical cells in the patient's previous Pap test ([id number]) are similar to the mild dysplasia in the current biopsy [facility] Medical History (Updated 12/25/23 @ 13:49 by Domingo Anderson MD) Dysplasia of cervix, low grade (DEE 1) Plantar fasciitis Chronic migraine Iron deficiency Depression Hyperlipidemia LDL goal <100 Essential hypertension Type 2 diabetes mellitus with hyperglycemia Surgical History Hx of tubal ligation Family History Father No problems noted. Mother HTN (hypertension) Maternal Grandfather HTN (hypertension) Myocardial infarct Maternal Grandmother Diabetes Breast cancer Maternal Aunt Diabetes Social History Household Members: Children Alcohol intake: never Patient Tobacco Use Status: Never used Tobacco Female Reproductive History Menstrual Age of Menarche: 10 Review of Systems Const All systems reviewed & are unremarkable except as noted in HPI and below Reports as per HPI and Reports no additional complaints GI Reports no additional complaints Reports no additional complaints Physical Exam Vital Signs: Last Vital Signs BP 130/88 12/25/23 13:43 BMI result Body Mass Index 28.1 Assessment & Plan Assessment & Plan (1) Dysplasia of cervix, low grade (DEE 1): Comment: 2016 negative co testing 09/06 Pap negative/HPV positive 12/09 ascus/HPV positive colpo/biopsy DEE 1 Code(s): N87.0 - Mild cervical dysplasia Plan: Discussed with the patient the pathology results of the colposcopy biopsies & endocervical curettage ( mild dysplasia-DEE 1). Discussed with the patient the sensitivity specificity, positive and negative predictive value in detecting cervical cancer in addition discussed the regression, persistence and progression rates. Recommended co-testing in 12 months, if cytology and or HPV are abnormal will proceed was colposcopy biopsy and endocervical curettage, if lesions gets worse or stays persistent for 2 years will proceed with loop electric excision procedure. Instructions given to the patient to schedule a co test appointment in 1 year. All questions answered the patient verbalized understanding. Coding Level of Care Code Est Pt Level 3 (71051) Diagnoses Dysplasia of cervix, low grade (DEE 1) N87.0
[2023-12-25 13:43] VITALS: BP 130/88; BMI 28.1
== END 2023-12-25 15:18 | disposition home or self-care (01) ==
LOC: HO.HWS 13:09
PROVIDERS: Visit Provider Obstetrics & Gynecology
DX: N87.0 Mild cervical dysplasia (principal)
CPT/HCPCS: 99213

== ENCOUNTER 2024-01-11 14:16 | Outpatient (REF) | payer MEDICAID, SELFPAY ==
--- NOTE | ~2024-01-11 | MM_ITS ---
EXAMINATION: MM SCREENING DIGITAL BREAST TOMOSYNTHESIS, BILATERAL CLINICAL INFORMATION: Screening. Asymptomatic. COMPARISON: Mammography: This study is compared with prior exams dating back to 2016. TECHNIQUE: Digital breast tomosynthesis is performed in both the craniocaudal and mediolateral oblique views along with computer-aided detection (CAD). Synthesized 2D images are generated from the tomosynthesis. FINDINGS: There are scattered areas of fibroglandular density (ACR BI-RADS breast composition Category b). There are no significant masses, abnormal calcifications, or other abnormalities. MM/MM tomosynthesis screening BI IMPRESSION: No mammographic evidence of malignancy. ASSESSMENT: BI-RADS BI-RADS 1 - Negative RECOMMENDATION: Routine annual mammography screening. 1 year F/U This examination should not preclude the clinical evaluation of a suspicious palpable abnormality. This patient's information was entered into a reminder system with a target due date for their next mammogram.
== END 2024-01-11 14:17 | disposition home or self-care (01) ==
LOC: HO.MAMMO 14:16
PROVIDERS: Visit Provider General Practice
DX: Z12.31 Encounter for screening mammogram for malignant neoplasm of breast (principal)
CPT/HCPCS: 77063; 77067

== ENCOUNTER → 2024-01-11 14:30 | Outpatient (BNV) | payer MEDICAID, SELFPAY | PROVIDERS: Visit Provider Radiology Diagnostic Radiology | DX: Z12.31 Encounter for screening mammogram for malignant neoplasm of breast (principal) | CPT/HCPCS: 77063; 77067 ==

== ENCOUNTER 2024-01-19 17:46 | Outpatient (REF) | payer MEDICAID, SELFPAY | END 2024-01-19 17:47 | disposition home or self-care (01) | LOC: HO.HHCLNP 17:46 | PROVIDERS: Visit Provider Emergency Medicine | DX: R31.29 Other microscopic hematuria (principal) | CPT/HCPCS: 87086 ==

== ENCOUNTER 2024-01-30 07:49 | Emergency (ER) | payer MEDICAID, SELFPAY ==
--- NOTE | ~2024-01-30 | XR_ITS ---
EXAMINATION: XR LUMBOSACRAL SPINE CLINICAL INFORMATION: Right lumbar pain COMPARISON: Lumbar spine 06/26/2020 TECHNIQUE: Three views of the lumbosacral spine. FINDINGS: Some mild degenerative changes are present with some mild disc space narrowing at L3-L4. Mild spondylitic endplate changes are seen with marginal osteophytes. Vertebral body heights are well-maintained. Some mild degenerative changes are seen in the hips, not well evaluated. XR/XR lumbar spine 2-3V IMPRESSION: Mild degenerative changes in the lumbar spine.
[2024-01-30 07:59] VITALS: BP 130/88; PULSE 97; RESP 16; TEMP 36.5; O2SAT 98; BMI 27.8
--- NOTE | 2024-01-30 08:49 | ED.BACK ---
HPI - Back Pain/Injury General Chief Complaint: Back Pain/Injury Stated Complaint: Low Back Pain No Injury Time Seen by Provider: 01/30/24 08:19 Source: patient Mode of arrival: ambulatory Limitations: language barrier History of Present Illness HPI Narrative: Patient with multiple medical problems with a history of fibromyalgia and back pain seen in clinic multiple times for back pain. She denies injury or weakness. She has neuropathy from her diabetes MD elicited complaint: back pain Pertinent past history: prior back pain Onset (ago): month(s) Timing: intermittent Severity: mild Related Data Home Medications ?Medication ?Instructions ?Recorded ?Confirmed albuterol sulfate 90 mcg/actuation 2 puff inhalation Q4-6H PRN 08/07/20 11/22/23 aerosol inhaler (ProAir HFA) atorvastatin 20 mg tablet 20 mg PO DAILY 08/07/20 11/22/23 cetirizine 10 mg capsule (Zyrtec) 10 mg PO DAILY 08/07/20 11/22/23 cyclobenzaprine 5 mg tablet 5 mg PO BEDTIME PRN 08/07/20 11/22/23 gabapentin 300 mg capsule 300 mg PO TID 08/07/20 11/22/23 lisinopril 5 mg tablet 5 mg PO DAILY 08/07/20 11/22/23 metformin 500 mg tablet 500 mg PO BID 08/07/20 11/22/23 sertraline 50 mg tablet (Zoloft) 50 mg PO DAILY 08/07/20 11/22/23 aluminum-mag hydroxide-simethicone 5 ml PO QID PRN 04/19/22 11/22/23 400 mg-400 mg-40 mg/5 mL oral susp (Mylanta Maximum Strength) Previous Rx's ?Medication ?Instructions ?Recorded clotrimazole 1 % topical cream 1 appl topical TID #45 grams 01/03/21 (Antifungal (clotrimazole)) blood sugar diagnostic (FreeStyle 1 strip miscellaneous TID for 02/17/21 Lite Strips) diabetes mellitus #100 strips dulaglutide 1.5 mg/0.5 mL 1.5 mg (0.5 mL) subcut QWEEK #2 mL 02/04/22 subcutaneous pen injector (Trulicity) lancets 33 gauge (TRUEplus Lancets) 1 gauge miscellaneous TID for 02/16/22 diabetes mellitus #100 ea benzonatate 200 mg capsule 200 mg PO TID PRN cough #10 caps 05/15/22 canagliflozin 300 mg tablet 300 mg PO QAM #30 tabs 07/13/22 (Invokana) bisacodyl 5 mg tablet,delayed 10 mg (2 x 5 mg) PO ONCE 1 day #2 09/21/22 release (Dulcolax (bisacodyl)) tabs polyethylene glycol 3350 17 238 g PO ONCE #238 grams 09/21/22 gram/dose oral powder (Miralax) sennosides 8.6 mg tablet (Natural 17.2 mg (2 x 8.6 mg) PO BEDTIME 12/29/22 Senna Laxative) constipation #180 tabs docusate sodium 100 mg capsule 100 mg PO BEDTIME #90 caps 03/23/23 famotidine 40 mg tablet 40 mg PO BEDTIME #90 tabs 03/23/23 fluconazole 150 mg tablet 150 mg PO Q3D 2 doses #2 tabs 04/21/23 medroxyprogesterone 150 mg/mL 150 mg IM Q12W #1 mL 04/21/23 intramuscular suspension (Depo-Provera) metronidazole 0.75 % (37.5 mg/5 1 appful vaginal BEDTIME 5 days 05/03/23 gram) vaginal gel #70 grams pantoprazole 40 mg tablet,delayed 40 mg PO DAILY #90 tabs 09/12/23 release doxycycline hyclate 100 mg capsule 100 mg PO BID 10 days #20 caps 11/21/23 ketorolac 10 mg tablet 10 mg PO TID PRN pain 5 days #15 11/21/23 tabs prednisone 20 mg tablet 40 mg (2 x 20 mg) PO DAILY 5 days 11/21/23 #10 tabs miconazole nitrate 2 % vaginal 1 appful vaginal BEDTIME 7 days 11/22/23 cream (Miconazole-7) #45 grams cyclobenzaprine 10 mg tablet 10 mg PO TID #10 tabs 01/30/24 naproxen 500 mg tablet (Naprosyn) 500 mg PO BID #20 tabs 01/30/24 Allergies Allergy/AdvReac Type Severity Reaction Status Date / Time Seasonal Allergies Allergy Mild Runny Nose Verified 01/30/24 08:05 Review of Systems Review of Systems: Yes all other systems are reviewed and are negative Neurologic: Denies Sensory deficit (Neuro) REPLACED BY [facility] Past Medical History Medical History (Updated 01/30/24 @ 10:08 by Keo Wiseman MD) Dysplasia of cervix, low grade (DEE 1) Plantar fasciitis Chronic migraine Iron deficiency Depression Hyperlipidemia LDL goal <100 Essential hypertension Type 2 diabetes mellitus with hyperglycemia Surgical History Hx of tubal ligation Family History Family History Father No problems noted. Mother HTN (hypertension) Maternal Grandfather HTN (hypertension) Myocardial infarct Maternal Grandmother Diabetes Breast cancer Maternal Aunt Diabetes Social History Social History Household Members: Children Alcohol intake: never Patient Tobacco Use Status: Never used Tobacco Advance Directives: No Physical Exam Vital Signs: Vital Signs: Last Vital Signs Temp 97.7 F 01/30/24 07:59 Pulse 97 01/30/24 07:59 Resp 16 01/30/24 07:59 BP 130/88 01/30/24 07:59 Pulse Ox 98 01/30/24 07:59 O2 Del Method Room Air 01/30/24 07:59 BMI result Body Mass Index 27.8 Const: General: healthy appearing Nutritional Appearance: average body habitus Orientation/consciousness: oriented to person and patient oriented x3 Limitations: no limitations HEENT: Head: Yes normal to inspection Ears: external ears normal General nose exam: Normal external nose present Mouth: Normal oral and palatal mucosa present and oropharynx normal Throat: Yes posterior oropharynx normal Eyes: General: appearance normal, both eyes and all related structures Neck: Other: supple Neck: Yes normal visual inspection Chest: Chest palpation & inspection: normal inspection of the chest Resp: Auscultation: clear to auscultation bilaterally Cardio: Jugular venous distension: no JVD Rate: regular rate Rhythm: regular rhythm Heart sounds: S1 normal heart sound present and S2 normal heart sound present GI: Inspection: Yes normal to inspection Palpation (GI): Soft to palpation, nontender and No hepatosplenomegaly present Auscultation: normal bowel sounds Back/Spine/Pelvis: Other: right SI joint pain, no sciatica pain Skin: General skin exam: no rashes or lesions noted Neuro: General: oriented to person and patient oriented x3 Cranial nerves: Yes CN's II-XII intact bilaterally Motor exam (neuro): 5/5 motor strength present throughout Sensory Exam: No Sensory deficit (Neuro) Extrem: General: Yes normal to inspection Psych: Appearance: grossly normal Course Reevaluation(s) Reevaluation #1: Patient with her usual back pain, awaiting plain films will likely discharge on NSAIDS and flexeril Time: 09:19 Medications Administered Discontinued Medications Generic Name Dose Route Start Last Admin Trade Name Edq PRN Reason Stop Dose Admin Cyclobenzaprine HCl 10 mg 01/30/24 08:50 01/30/24 09:21 Cyclobenzaprine Hcl 10 Mg Tablet PO 01/30/24 08:51 10 mg ONCE ONE Administration Ketorolac Tromethamine 60 mg 01/30/24 08:50 01/30/24 09:20 Ketorolac Tromethamine 60 Mg/2 Ml Vial IM 01/30/24 08:51 60 mg ONCE ONE Administration Medical Decision Making Differential Diagnosis Differential Diagnoses: The differential diagnosis associated with the presentation includes (lumbar strain, sciatica, arthritis were all considered) Independent Interpretation I performed an independent interpretation of an: Plain X-Ray (lumbar: mild djd) External Record Review External record reviewed: Prior outpatient labs and Prior outpatient radiology Tests considered The following testing was considered but not selected: MRI considered but not evidence of neurologic deficit Prescription Management I considered prescription management with: Pain Medication (will place on nsaids and flexeril no narcotics at this time) Chronic Conditions Patient?s care impacted by: Diabetes and Hypertension Discharge Plan Discharge Clinical Impression: Back pain, Lumbar radiculopathy Patient Disposition: Home, Self-Care Instructions: Acute Low Back Pain (ED), Back Pain (ED) Prescriptions: New cyclobenzaprine 10 mg tablet 10 mg PO TID Qty: 10 0RF naproxen [Naprosyn] 500 mg tablet 500 mg PO BID Qty: 20 0RF No Action blood sugar diagnostic [FreeStyle Lite Strips] Strip 1 strip miscellaneous TID Qty: 100 11RF Trulicity 1.5 mg/0.5 mL pen injector 1.5 mg subcut QWEEK Qty: 2 0RF lancets [TRUEplus Lancets] 33 gauge misc 1 gauge miscellaneous TID Qty: 100 11RF Invokana 300 mg tablet 300 mg PO QAM Qty: 30 0RF sennosides [Natural Senna Laxative] 8.6 mg tablet 17.2 mg PO BEDTIME Qty: 180 1RF docusate sodium 100 mg capsule 100 mg PO BEDTIME Qty: 90 3RF famotidine 40 mg tablet 40 mg PO BEDTIME Qty: 90 3RF metronidazole 0.75 % (37.5mg/5 gram) gel 1 appful vaginal BEDTIME 5 Days Qty: 70 0RF pantoprazole 40 mg tablet,delayed release (DR/EC) 40 mg PO DAILY Qty: 90 2RF Rx Instructions: take one tablet half an hour before breakfast clotrimazole [Antifungal (clotrimazole)] 1 % cream 1 appl topical TID Qty: 45 0RF Rx Instructions: Until better benzonatate 200 mg capsule 200 mg PO TID PRN (Reason: cough) Qty: 10 0RF doxycycline hyclate 100 mg capsule 100 mg PO BID 10 Days Qty: 20 0RF prednisone 20 mg tablet 40 mg PO DAILY 5 Days Qty: 10 0RF ketorolac 10 mg tablet 10 mg PO TID PRN (Reason: pain) 5 Days Qty: 15 0RF lisinopril 5 mg tablet 5 mg PO DAILY atorvastatin 20 mg tablet 20 mg PO DAILY metformin 500 mg tablet 500 mg PO BID gabapentin 300 mg capsule 300 mg PO TID cyclobenzaprine 5 mg tablet 5 mg PO BEDTIME PRN Zyrtec 10 mg capsule 10 mg PO DAILY sertraline [Zoloft] 50 mg tablet 50 mg PO DAILY albuterol sulfate [ProAir HFA] 90 mcg/actuation HFA aerosol inhaler 2 puff inhalation Q4-6H PRN alum-mag hydroxide-simeth [Mylanta Maximum Strength] 400-400-40 mg/5 mL suspension 5 ml PO QID PRN bisacodyl [Dulcolax (bisacodyl)] 5 mg tablet,delayed release (DR/EC) 10 mg PO ONCE 1 Days Qty: 2 0RF Rx Instructions: take 2 tabs at noon the day before your colonoscopy polyethylene glycol 3350 [Miralax] 17 gram/dose powder 238 g PO ONCE Qty: 238 0RF Rx Instructions: As directed by gastroenterology department at [facility] medroxyprogesterone [Depo-Provera] 150 mg/mL suspension 150 mg IM Q12W Qty: 1 5RF Rx Instructions: Start in 1st couple of days of next menses. fluconazole 150 mg tablet 150 mg PO Q3D 0 Days Qty: 2 2RF Rx Instructions: may repeat second dose 72 hrs after first dose if symptoms persist miconazole nitrate [Miconazole-7] 2 % cream 1 appful vaginal BEDTIME 7 Days Qty: 45 3RF Referrals: Lissy Gracia MD [Primary Care Provider] - 5 days Print Language: Kiswahili
--- NOTE | 2024-01-30 09:17 | PC.NURSE ---
pt to radiology, will medicate upon their return
[2024-01-30] MEDS: Ketorolac Tromethamine 60 MG/2 ML VIAL IM (09:20)
[2024-01-30] MEDS: Cyclobenzaprine HCl 10 MG TABLET PO (09:21)
--- NOTE | 2024-01-30 09:23 | PC.NURSE ---
pt medicated per order
[2024-01-30 10:29] VITALS: BP 128/82; PULSE 92; RESP 16; TEMP 36.6; O2SAT 97
[2024-01-30 10:30] VITALS: BP 128/82; PULSE 92; RESP 16; TEMP 36.6; O2SAT 97
== END 2024-01-30 10:31 | disposition home or self-care (01) ==
PROVIDERS: Emergency Provider Emergency Medicine; PCP General Practice
DX: M54.16 Radiculopathy, lumbar region (principal); M79.7 Fibromyalgia; E11.40 Type 2 diabetes mellitus with diabetic neuropathy, unspecified; I10 Essential (primary) hypertension
CPT/HCPCS: 72100; 96372; 99283; 99284; J1885

== ENCOUNTER 2024-06-25 10:46 | Outpatient (REF) | payer MEDICAID, SELFPAY ==
--- NOTE | ~2024-06-25 | XR_ITS ---
EXAMINATION: XR SHOULDER, LEFT CLINICAL INFORMATION: Atraumatic pain left shoulder COMPARISON: None available. TECHNIQUE: 3 views of the left shoulder FINDINGS: The bones and soft tissues are normal. No fracture. Glenohumeral and acromioclavicular alignment is anatomic with normal joint space. No abnormal soft tissue calcifications. XR/XR shoulder LT min 2V IMPRESSION: Normal left shoulder. Electronically signed by: Micheal Mujica MD 07/10/2024 07:13 AM EDT
--- NOTE | ~2024-06-25 | XR_ITS ---
EXAMINATION: XR CERVICAL SPINE CLINICAL INFORMATION: Atraumatic neck pain left side left shoulder. COMPARISON: Cervical spine series May 2023 TECHNIQUE: 3 views of the cervical spine were obtained. FINDINGS: Exam is partially limited as the cervicothoracic junction is not partially obscured by overlying soft tissues. Otherwise the vertebral bodies are normally aligned with normal height. Disc spaces normal. Facets normal. Surrounding bones soft tissues normal. XR/XR cervical spine 3V IMPRESSION: partially limited as the cervicothoracic junction is not partially obscured by overlying soft tissues. Otherwise unremarkable. Electronically signed by: Micheal Mujica MD 07/10/2024 06:17 AM EDT
== END 2024-06-25 10:47 | disposition home or self-care (01) ==
LOC: HO.HHCX 10:46
PROVIDERS: Visit Provider Emergency Medicine
DX: M25.512 Pain in left shoulder (principal); M54.2 Cervicalgia
CPT/HCPCS: 72040; 73030

== ENCOUNTER 2024-08-11 08:34 | Emergency (ER) | payer MEDICAID, SELFPAY ==
--- NOTE | ~2024-08-11 | XR_ITS ---
EXAMINATION: XR CHEST CLINICAL INFORMATION: Chest pain. Cough. COMPARISON: Chest x-ray December 06, 2023 TECHNIQUE: 2 views of the chest were obtained. FINDINGS: Cardiac silhouette is normal in size. The lungs are well aerated. There is no lobar consolidation. No pleural effusion or pneumothorax. No acute osseous abnormality. XR/XR chest 2V IMPRESSION: No acute pulmonary pathology. Electronically signed by: Sonny Armendariz MD 08/11/2024 09:27 AM EDT
--- NOTE | 2024-08-11 08:38 | ECG_ITS ---
Test Reason : chest pain Blood Pressure : / mmHG Vent. Rate : 090 BPM Atrial Rate : 090 BPM P-R Int : 160 ms QRS Dur : 084 ms QT Int : 374 ms P-R-T Axes : 055 018 -11 degrees QTc Int : 457 ms Normal sinus rhythm Normal ECG When compared with ECG of 21-NOV-2023 12:14, No significant change was found Referred By: Generic ED Physician Electronically Signed By:Karl Rivera
[2024-08-11 08:43] VITALS: PULSE 91; RESP 18; TEMP 36.8; O2SAT 99; BMI 28.1
--- NOTE | 2024-08-11 08:53 | ED_ITS ---
HPI - General Adult General Chief complaint: Upper Respiratory Symptoms Stated complaint: cp Time Seen by Provider: 08/11/24 08:53 Source: patient and box shook patcher (all interactions with this patient were facilitated with an [facility] capper) Mode of arrival: ambulatory Limitations: language barrier (all interactions with this patient were facilitated with an [facility]) History of Present Illness ED Provider: Christy Angulo PA-C HPI narrative: Patient is a 48 year old assigned female at with a history of DM presenting to the emergency department today with a persistent cough. Patient states that ever since she had COVID-19 2 weeks ago she has continued to have a cough. Patient denies any dizziness, lightheadedness, abdominal pain, nausea, vomiting, fever, chills, blurry vision, double vision, loss of vision, chest pain, difficulty breathing, shortness of breath, night sweats, pain with urination, increased urinary frequency, increased urinary urgency, blood in her urine or stool, syncope or a near syncopal episode, recent trauma or falls, bowel incontinence, bladder incontinence, or any other complaints at this time. Onset (ago): week(s) Relieving factors: none Associated symptoms: cough Treatments prior to arrival: none Related Data Home Medications ?Medication ?Instructions ?Recorded ?Confirmed albuterol sulfate 90 mcg/actuation 2 puff inhalation Q4-6H PRN 08/07/20 11/22/23 aerosol inhaler (ProAir HFA) atorvastatin 20 mg tablet 20 mg PO DAILY 08/07/20 11/22/23 cetirizine 10 mg capsule (Zyrtec) 10 mg PO DAILY 08/07/20 11/22/23 cyclobenzaprine 5 mg tablet 5 mg PO BEDTIME PRN 08/07/20 11/22/23 gabapentin 300 mg capsule 300 mg PO TID 08/07/20 11/22/23 lisinopril 5 mg tablet 5 mg PO DAILY 08/07/20 11/22/23 metformin 500 mg tablet 500 mg PO BID 08/07/20 11/22/23 sertraline 50 mg tablet (Zoloft) 50 mg PO DAILY 08/07/20 11/22/23 aluminum-mag hydroxide-simethicone 5 ml PO QID PRN 04/19/22 11/22/23 400 mg-400 mg-40 mg/5 mL oral susp (Mylanta Maximum Strength) Previous Rx's ?Medication ?Instructions ?Recorded clotrimazole 1 % topical cream 1 appl topical TID #45 grams 01/03/21 (Antifungal (clotrimazole)) blood sugar diagnostic (FreeStyle 1 strip miscellaneous TID for 02/17/21 Lite Strips) diabetes mellitus #100 strips dulaglutide 1.5 mg/0.5 mL 1.5 mg (0.5 mL) subcut QWEEK #2 mL 02/04/22 subcutaneous pen injector (Trulicity) lancets 33 gauge (TRUEplus Lancets) 1 gauge miscellaneous TID for 02/16/22 diabetes mellitus #100 ea benzonatate 200 mg capsule 200 mg PO TID PRN cough #10 caps 05/15/22 canagliflozin 300 mg tablet 300 mg PO QAM #30 tabs 07/13/22 (Invokana) bisacodyl 5 mg tablet,delayed 10 mg (2 x 5 mg) PO ONCE 1 day #2 09/21/22 release (Dulcolax (bisacodyl)) tabs polyethylene glycol 3350 17 238 g PO ONCE #238 grams 09/21/22 gram/dose oral powder (Miralax) sennosides 8.6 mg tablet (Natural 17.2 mg (2 x 8.6 mg) PO BEDTIME 12/29/22 Senna Laxative) constipation #180 tabs fluconazole 150 mg tablet 150 mg PO Q3D 2 doses #2 tabs 04/21/23 medroxyprogesterone 150 mg/mL 150 mg IM Q12W #1 mL 04/21/23 intramuscular suspension (Depo-Provera) metronidazole 0.75 % (37.5 mg/5 1 appful vaginal BEDTIME 5 days 05/03/23 gram) vaginal gel #70 grams pantoprazole 40 mg tablet,delayed 40 mg PO DAILY #90 tabs 09/12/23 release doxycycline hyclate 100 mg capsule 100 mg PO BID 10 days #20 caps 11/21/23 ketorolac 10 mg tablet 10 mg PO TID PRN pain 5 days #15 11/21/23 tabs prednisone 20 mg tablet 40 mg (2 x 20 mg) PO DAILY 5 days 11/21/23 #10 tabs miconazole nitrate 2 % vaginal 1 appful vaginal BEDTIME 7 days 11/22/23 cream (Miconazole-7) #45 grams cyclobenzaprine 10 mg tablet 10 mg PO TID #10 tabs 01/30/24 naproxen 500 mg tablet (Naprosyn) 500 mg PO BID #20 tabs 01/30/24 docusate sodium 100 mg capsule 100 mg PO BEDTIME #90 caps 04/04/24 famotidine 40 mg tablet 40 mg PO BEDTIME #90 tabs 04/04/24 prednisone 20 mg tablet 20 mg PO DAILY 12 days #26 tabs 08/11/24 Allergies Allergy/AdvReac Type Severity Reaction Status Date / Time Seasonal Allergies Allergy Mild Runny Nose Verified 08/11/24 08:49 Review of Systems Constitutional: Constitutional: Reports no additional constitutional complai nts, Denies chills, Denies fever(s) and Denies night sweats Eyes: Eyes: Reports no additional eye complaints, Denies blurry vision, Denies change in vision, Denies diplopia, Denies eye discharge, Denies loss of vision and Denies eye pain ENT: Denies dizziness Cardiovascular: Cardiovascular: Reports no additional cardiovascular complaints, Denies chest pain, Denies lightheadedness, Denies Loss of Consciousness and Denies dyspnea Respiratory: Respiratory: Reports no additional respiratory complaints, Reports cough and Denies dyspnea Gastrointestinal: Gastrointestinal: Reports no additional gastrointestinal complaints, Denies abdominal pain, Denies melena, Denies hematochezia, Denies change in bowel habits and Denies change in stool character Genitourinary: Genitourinary: Denies hematuria, Denies urinary frequency, Denies dysuria, Denies urinary incontinence, Denies urinary hesitancy and Denies urinary urgency Musculoskeletal: Musculoskeletal: Reports no additional musculoskeletal complaints, Denies numbness and Denies tingling Neurologic: Denies dizziness, Denies loss of vision, Denies numbness and Denies tingling Psychiatric: Psychiatric: Reports no additional psychiatric complaints Endocrine: Endocrine: Reports no additional endocrine complaints Hematologic/Lymphatic: Hematologic/Lymphatic: Reports no additional hematologic/lymphatic complaints Allergic/Immunologic: Allergic/Immunologic: Reports no additional allergic/immunologic complaints PMFSH Past Medical History Attestation statement: The following information was validated with the patient. Source: old records reviewed and nursing notes reviewed Medical History Dysplasia of cervix, low grade (DEE 1) Plantar fasciitis Chronic migraine Iron deficiency Depression Hyperlipidemia LDL goal <100 Essential hypertension Type 2 diabetes mellitus with hyperglycemia Surgical History Hx of tubal ligation Family History Family History Father No problems noted. Mother HTN (hypertension) Maternal Grandfather HTN (hypertension) Myocardial infarct Maternal Grandmother Diabetes Breast cancer Maternal Aunt Diabetes Social History Social History Household Members: Children Alcohol intake: never Patient Tobacco Use Status: Never used Tobacco Advance Directives: No Advance Directives Information Provided: No Do you have a plan to hurt others: No Plan Physical Exam ED Vital Signs: Vital Signs - 24 hr 08/11/24 08:43 Temperature 98.3 F Pulse Rate 91 Respiratory Rate 18 Pulse Oximetry 99 Oxygen Delivery Method Room Air BMI result Body Mass Index 28.1 Const General: cooperative, no acute distress, alert and awake Nutritional Appearance: well nourished Orientation/consciousness: patient oriented x3 Limitations: no limitations HENMT Head: Yes normal to inspection and Yes atraumatic Ears: hearing grossly normal bilaterally and external ears normal General nose exam: Normal external nose present, no nasal discharge noted and no epistaxis Face and sinus: Yes normal facial exam, No abrasion and No laceration Mouth: Normal oral and palatal mucosa present, no drooling and no muffled voice Eyes General: appearance normal, both eyes and all related structures Periorbital: periorbital findings normal Eyelids: Yes eyelids normal Conjunctivae: conjunctivae normal Pupils: Equal, round and reactive pupils present EOM: EOMs intact bilaterally Neck Neck: Yes normal visual inspection, Yes full ROM and Yes no lymphadenopathy Chest Chest palpation & inspection: normal inspection of the chest Resp Effort & Inspection: normal respiratory effort and able to speak in complete sentences GI Inspection: Yes normal to inspection Neuro General: patient oriented x3 and moves all extremities Cranial nerves: Yes Equal, round and reactive pupils present Cognition (Neuro): normal cognition Extrem General: Yes normal to inspection, Yes full ROM and Yes capillary refill normal Psych Appearance: grossly normal Mental Status: mental status grossly normal Affect: normal affect Attitude: cooperative Thought process: Normal thought process present Thought content: Normal thought content present Insight: Good insight present (Psych) Medications Administered Discontinued Medications Generic Name Dose Route Start Last Admin Trade Name Esperanza PRN Reason Stop Dose Admin Prednisone 40 mg 08/11/24 10:33 08/11/24 10:42 Prednisone 20 Mg Tablet PO 08/11/24 10:34 40 mg ONCE ONE Administration Medical Decision Making Medical Decision Making [facility] Narrative: Patient is a 48 year old assigned female at with a history of DM presenting to the emergency department today with a cough. Patient's physical exam was unremarkable. Patient's chest x-ray showed no acute process. Patient's COVID-19, influenza, and RSV swabs were negative. I explained my physical exam findings as well as all test results to the patient. I answered all questions asked by the patient. I stressed the importance of the patient taking her medication as directed (either prescribed or as the over the counter packaging recommends). I stressed the importance of the patient following up with her primary care provider. I stressed the importance of the patient returning to the emergency department immediately if her symptoms were to worsen or if she were to develop any dizziness, shortness of breath, difficulty breathing, chest pain, blurry vision, loss of vision, nausea, vomiting, abdominal pain, fever, chills, back pain, or any other complaints. Patient verbalized agreement and understanding with this treatment plan and discharge. Differential Diagnosis Differential Diagnoses: The differential diagnosis associated with the presentation includes COVID-19 Influenza RSV Cough URI Admission/Observation Consideration of admission/observation: Escalation of care including admission/observation considered Patient would have been admitted to the hospital had her work up had any findings where hospital admission was appropriate and her clinical presentation warranted hospital admission. Lab Data [facility] Lab Attestation statement: I reviewed the patient's lab results. My interpretation of these studies and their corresponding values is that they a re grossly normal. Labs: Lab Results 08/11/24 Range/Units 09:18 Influenza Type A (PCR) NEGATIVE (Negative) Influenza Type B (PCR) NEGATIVE (Negative) RSV RNA Qual (PCR) NEGATIVE (Negative) SARS-CoV-2 RNA (RT-PCR) NEGATIVE (Negative) Independent Interpretation I performed an independent interpretation of an: Plain X-Ray Interpretation: My interpretation is in agreement with the radiologist's impression of this imaging study. EXAMINATION: XR CHEST CLINICAL INFORMATION: Chest pain. Cough. COMPARISON: Chest x-ray December 06, 2023 TECHNIQUE: 2 views of the chest were obtained. FINDINGS: Cardiac silhouette is normal in size. The lungs are well aerated. There is no lobar consolidation. No pleural effusion or pneumothorax. No acute osseous abnormality. XR/XR chest 2V IMPRESSION: No acute pulmonary pathology. Electronically signed by: Sonny Armendariz MD 08/11/2024 09:27 AM EDT RP Dictated By: Sonny Armendariz MD Signed By: Electronically signed by Sonny Armendariz MD 08/11/24 0927 Radiology Impression Discussion of test interpretation with radiology: I have reviewed the radiologist's reading. Chronic Conditions Patient?s care impacted by: Diabetes Discharge Plan Discharge Clinical Impression: Cough Patient Disposition: Home, Self-Care Instructions: Acute Cough (ED) Additional Instructions: Follow up with your primary care provider. Return to the emergency department immediately if your symptoms worsen or if you develop any dizziness, shortness of breath, difficulty breathing, chest pain, blurry vision, loss of vision, nausea, vomiting, abdominal pain, fever, chills, back pain, or any other complaints. Nicholas?seguimiento?con valdez m?dico de atenci?n primaria. Acuda inmediatamente al servicio de urgencias si dieter s?ntomas empeoran o si presenta falta de aliento, dificultad para respirar, dolor tor?cico, mareos, aturdimiento, dolor de espalda, dolor abdominal, fiebre, escalofr?os o cualquier otro s?ntoma. Prescriptions: New prednisone 20 mg tablet 20 mg PO DAILY 12 Days Qty: 26 0RF Rx Instructions: Take 3 tablets for 5 days THEN; Take 2 tablets for 4 days THEN; Take 1 tablet for 3 days No Action blood sugar diagnostic [FreeStyle Lite Strips] Strip 1 strip miscellaneous TID Qty: 100 11RF Trulicity 1.5 mg/0.5 mL pen injector 1.5 mg subcut QWEEK Qty: 2 0RF lancets [TRUEplus Lancets] 33 gauge misc 1 gauge miscellaneous TID Qty: 100 11RF Invokana 300 mg tablet 300 mg PO QAM Qty: 30 0RF sennosides [Natural Senna Laxative] 8.6 mg tablet 17.2 mg PO BEDTIME Qty: 180 1RF metronidazole 0.75 % (37.5mg/5 gram) gel 1 appful vaginal BEDTIME 5 Days Qty: 70 0RF pantoprazole 40 mg tablet,delayed release (DR/EC) 40 mg PO DAILY Qty: 90 2RF Rx Instructions: take one tablet half an hour before breakfast famotidine 40 mg tablet 40 mg PO BEDTIME Qty: 90 3RF docusate sodium 100 mg capsule 100 mg PO BEDTIME Qty: 90 3RF clotrimazole [Antifungal (clotrimazole)] 1 % cream 1 appl topical TID Qty: 45 0RF Rx Instructions: Until better benzonatate 200 mg capsule 200 mg PO TID PRN (Reason: cough) Qty: 10 0RF cyclobenzaprine 10 mg tablet 10 mg PO TID Qty: 10 0RF naproxen [Naprosyn] 500 mg tablet 500 mg PO BID Qty: 20 0RF doxycycline hyclate 100 mg capsule 100 mg PO BID 10 Days Qty: 20 0RF prednisone 20 mg tablet 40 mg PO DAILY 5 Days Qty: 10 0RF ketorolac 10 mg tablet 10 mg PO TID PRN (Reason: pain) 5 Days Qty: 15 0RF lisinopril 5 mg tablet 5 mg PO DAILY atorvastatin 20 mg tablet 20 mg PO DAILY metformin 500 mg tablet 500 mg PO BID gabapentin 300 mg capsule 300 mg PO TID cyclobenzaprine 5 mg tablet 5 mg PO BEDTIME PRN Zyrtec 10 mg capsule 10 mg PO DAILY sertraline [Zoloft] 50 mg tablet 50 mg PO DAILY albuterol sulfate [ProAir HFA] 90 mcg/actuation HFA aerosol inhaler 2 puff inhalation Q4-6H PRN alum-mag hydroxide-simeth [Mylanta Maximum Strength] 400-400-40 mg/5 mL suspension 5 ml PO QID PRN bisacodyl [Dulcolax (bisacodyl)] 5 mg tablet,delayed release (DR/EC) 10 mg PO ONCE 1 Days Qty: 2 0RF Rx Instructions: take 2 tabs at noon the day before your colonoscopy polyethylene glycol 3350 [Miralax] 17 gram/dose powder 238 g PO ONCE Qty: 238 0RF Rx Instructions: As directed by gastroenterology department at [facility] medroxyprogesterone [Depo-Provera] 150 mg/mL suspension 150 mg IM Q12W Qty: 1 5RF Rx Instructions: Start in 1st couple of days of next menses. fluconazole 150 mg tablet 150 mg PO Q3D 0 Days Qty: 2 2RF Rx Instructions: may repeat second dose 72 hrs after first dose if symptoms persist miconazole nitrate [Miconazole-7] 2 % cream 1 appful vaginal BEDTIME 7 Days Qty: 45 3RF Referrals: Lissy Gracia MD [Primary Care Provider] - Print Language: Latvian
[2024-08-11 10:04] LABS: Influenza A PCR NEGATIVE (Negative); Influenza B PCR NEGATIVE (Negative); Resp Syncy Virus RNA Qual PCR NEGATIVE (Negative); SARS COV2 PCR INHOUSE NEGATIVE (Negative)
[2024-08-11] MEDS: predniSONE 20 MG TABLET 40 MG PO (10:42)
[2024-08-11 10:45] VITALS: BP 163/90; PULSE 80; RESP 16; TEMP 36.2; O2SAT 94
== END 2024-08-11 10:48 | disposition home or self-care (01) ==
PROVIDERS: Physician Assistant Medical; Emergency Provider Emergency Medicine; PCP General Practice
DX: R07.89 Other chest pain (principal); E11.9 Type 2 diabetes mellitus without complications; R05.9 Cough, unspecified; Z03.818 Encounter for observation for suspected exposure to other biological agents ruled out; Z79.899 Other long term (current) drug therapy
CPT/HCPCS: 0241U; 71046; 93005; 99283

== ENCOUNTER → 2024-08-11 08:38 | Outpatient (BNV) | payer MEDICAID, SELFPAY | PROVIDERS: Emergency Provider Emergency Medicine; PCP General Practice; Visit Provider Internal Medicine Cardiovascular Disease | DX: R07.9 Chest pain, unspecified (principal) | CPT/HCPCS: 93010 ==

== ENCOUNTER 2024-08-21 11:09 | Emergency (ER) | payer MEDICAID, SELFPAY ==
--- NOTE | ~2024-08-21 | XR_ITS ---
EXAMINATION: XR CHEST CLINICAL INFORMATION: Chest pain. Cough. COMPARISON: X-ray dated August 11, 2024 TECHNIQUE: 2 views of the chest were obtained. FINDINGS: No consolidation, pleural effusion or pneumothorax. Cardiomediastinal silhouette is normal in size. Multilevel thoracic spondylosis, mild. XR/XR chest 2V IMPRESSION: No acute airspace disease. Electronically signed by: Art Sweeney MD 08/21/2024 12:08 PM [facility]
--- NOTE | 2024-08-21 11:12 | ECG_ITS ---
Test Reason : CHEST PAIN Blood Pressure : / mmHG Vent. Rate : 098 BPM Atrial Rate : 098 BPM P-R Int : 148 ms QRS Dur : 080 ms QT Int : 326 ms P-R-T Axes : 061 016 004 degrees QTc Int : 416 ms Normal sinus rhythm Normal ECG When compared with ECG of 11-AUG-2024 08:36, Nonspecific T wave abnormality no longer evident in Anterior leads Referred By: Generic ED Physician Electronically Signed By:NOHEMY SMYTH MD
[2024-08-21 11:13] VITALS: BP 157/107; PULSE 104; O2SAT 98
[2024-08-21 11:24] VITALS: BP 120/76; PULSE 99; RESP 18; O2SAT 98; BMI 29.1
[2024-08-21 12:01] LABS: MANUAL DIFF FLAG NO
[2024-08-21 12:02] LABS: Basophils Percent Auto 0.1 % (0-2); Hematocrit 38.7 % (37.0-47.0); Hemoglobin 12.8 g/dl (12.0-16.0); Imm Gran Abs Auto 0.03 X10*3/uL (0.00-0.03); Imm Gran Pct Auto 0.2 % (0.0-0.4); Lymphocytes Absolute Auto 1.4 X10*3/uL (1.2-4.9); Lymphocytes Percent Auto 10.6 % (20-40); Mean Corpuscular HGB Conc 33.1 g/dl (31.0-35.0); Mean Corpuscular Hemoglobin 24.9 pg (27.0-33.0); Mean Corpuscular Volume 75.3 fL (80.0-98.0); Mean Platelet Volume 9.4 fL (9.4-12.3); Monocytes Absolute Auto 0.4 X10*3/uL (0.1-1.2); Monocytes Percent Auto 2.6 % (2-11); Neutrophils Absolute Auto 11.5 x10*3/uL (2.0-8.3); Neutrophils Percent Auto 86.5 % (45-73); Platelet Count 436 X10*3/uL (160-400); Red Blood Count 5.14 X10*6/uL (4.20-5.50); Red Cell Distribution Width 15.5 % (11.0-16.0); White Blood Count 13.3 X10*3/uL (4.8-10.8)
[2024-08-21 12:16] LABS: Alanine Aminotransferase 22 U/L (0-31); Albumin Level 4.4 g/dL (3.5-5.0); Alkaline Phosphatase 79 U/L (39-117); Anion Gap 17 (12-20); Aspartate Amino Transferase 19 U/L (5-31); Bilirubin Total 0.6 mg/dL (0.0-1.0); Blood Urea Nitrogen 22 mg/dL (9-16); Calcium 11.1 mg/dL (8.4-10.2); Carbon Dioxide 19 mmol/L (22-29); Chloride 102 mmol/L (96-108); Creatinine Clr Calc Pharmacy 88.5; Estimated Glomerular Filt Rate > 60; Glucose Random 184 mg/dL (60-115); Magnesium 2.1 mg/dL (1.6-2.6); Potassium 4.6 mmol/L (3.3-5.1); Sodium 133 mmol/L (135-145); Total Protein 7.8 g/dL (6.5-8.0)
[2024-08-21 12:24] LABS: Troponin-I High Sensitivity < 2.7 ng/L (<3.5-17.0)
[2024-08-21 13:18] VITALS: BP 120/78; PULSE 89; RESP 16; O2SAT 99
--- NOTE | 2024-08-21 13:21 | ED_ITS ---
HPI - General Adult General Chief complaint: Upper Respiratory Symptoms Stated complaint: CP,SOB Time Seen by Provider: 08/21/24 13:20 Source: patient and motor vehicle parts interpreter (all interactions with this patient were facilitated with an [facility] motor vehicle parts interpreter) Mode of arrival: ambulatory Limitations: language barrier (all interactions with this patient were facilitated with an [facility] motor vehicle parts interpreter) History of Present Illness ED Provider: Christy Angulo PA-C HPI narrative: Patient is a 48 year old assigned female at with a history of DM presenting to the emergency department today with a persistent cough. Patient states that ever since she had COVID-19 a month ago she has continued to have a cough. Patient denies any dizziness, lightheadedness, abdominal pain, nausea, vomiting, fever, chills, blurry vision, double vision, loss of vision, chest pain, difficulty breathing, shortness of breath, night sweats, pain with urination, increased urinary frequency, increased urinary urgency, blood in her urine or stool, syncope or a near syncopal episode, recent trauma or falls, bowel incontinence, bladder incontinence, or any other complaints at this time. Relieving factors: none Exacerbating factors: none Associated symptoms: cough Treatments prior to arrival: none Related Data Home Medications ?Medication ?Instructions ?Recorded ?Confirmed albuterol sulfate 90 mcg/actuation 2 puff inhalation Q4-6H PRN 08/07/20 11/22/23 aerosol inhaler (ProAir HFA) atorvastatin 20 mg tablet 20 mg PO DAILY 08/07/20 11/22/23 cetirizine 10 mg capsule (Zyrtec) 10 mg PO DAILY 08/07/20 11/22/23 cyclobenzaprine 5 mg tablet 5 mg PO BEDTIME PRN 08/07/20 11/22/23 gabapentin 300 mg capsule 300 mg PO TID 08/07/20 11/22/23 lisinopril 5 mg tablet 5 mg PO DAILY 08/07/20 11/22/23 metformin 500 mg tablet 500 mg PO BID 08/07/20 11/22/23 sertraline 50 mg tablet (Zoloft) 50 mg PO DAILY 08/07/20 11/22/23 aluminum-mag hydroxide-simethicone 5 ml PO QID PRN 04/19/22 11/22/23 400 mg-400 mg-40 mg/5 mL oral susp (Mylanta Maximum Strength) Previous Rx's ?Medication ?Instructions ?Recorded clotrimazole 1 % topical cream 1 appl topical TID #45 grams 01/03/21 (Antifungal (clotrimazole)) blood sugar diagnostic (FreeStyle 1 strip miscellaneous TID for 02/17/21 Lite Strips) diabetes mellitus #100 strips dulaglutide 1.5 mg/0.5 mL 1.5 mg (0.5 mL) subcut QWEEK #2 mL 02/04/22 subcutaneous pen injector (Trulicity) lancets 33 gauge (TRUEplus Lancets) 1 gauge miscellaneous TID for 02/16/22 diabetes mellitus #100 ea benzonatate 200 mg capsule 200 mg PO TID PRN cough #10 caps 05/15/22 canagliflozin 300 mg tablet 300 mg PO QAM #30 tabs 07/13/22 (Invokana) bisacodyl 5 mg tablet,delayed 10 mg (2 x 5 mg) PO ONCE 1 day #2 09/21/22 release (Dulcolax (bisacodyl)) tabs polyethylene glycol 3350 17 238 g PO ONCE #238 grams 09/21/22 gram/dose oral powder (Miralax) sennosides 8.6 mg tablet (Natural 17.2 mg (2 x 8.6 mg) PO BEDTIME 12/29/22 Senna Laxative) constipation #180 tabs fluconazole 150 mg tablet 150 mg PO Q3D 2 doses #2 tabs 04/21/23 medroxyprogesterone 150 mg/mL 150 mg IM Q12W #1 mL 04/21/23 intramuscular suspension (Depo-Provera) metronidazole 0.75 % (37.5 mg/5 1 appful vaginal BEDTIME 5 days 05/03/23 gram) vaginal gel #70 grams pantoprazole 40 mg tablet,delayed 40 mg PO DAILY #90 tabs 09/12/23 release doxycycline hyclate 100 mg capsule 100 mg PO BID 10 days #20 caps 11/21/23 ketorolac 10 mg tablet 10 mg PO TID PRN pain 5 days #15 11/21/23 tabs prednisone 20 mg tablet 40 mg (2 x 20 mg) PO DAILY 5 days 11/21/23 #10 tabs miconazole nitrate 2 % vaginal 1 appful vaginal BEDTIME 7 days 11/22/23 cream (Miconazole-7) #45 grams cyclobenzaprine 10 mg tablet 10 mg PO TID #10 tabs 01/30/24 naproxen 500 mg tablet (Naprosyn) 500 mg PO BID #20 tabs 01/30/24 docusate sodium 100 mg capsule 100 mg PO BEDTIME #90 caps 04/04/24 famotidine 40 mg tablet 40 mg PO BEDTIME #90 tabs 04/04/24 prednisone 20 mg tablet 20 mg PO DAILY 12 days #26 tabs 08/11/24 Allergies Allergy/AdvReac Type Severity Reaction Status Date / Time Seasonal Allergies Allergy Mild Runny Nose Verified 08/21/24 11:26 Review of Systems 2 Constitutional: Constitutional: Reports no additional constitutional complaints, Denies chills, Denies fever(s) and Denies night sweats Eyes: Eyes: Reports no additional eye complaints, Denies blurry vision, Denies change in vision, Denies diplopia, Denies eye discharge, Denies loss of vision and Denies eye pain ENT: Denies dizziness Cardiovascular: Cardiovascular: Reports no additional cardiovascular complaints, Denies chest pain, Denies lightheadedness, Denies Loss of Consciousness and Denies dyspnea Respiratory: Respiratory: Reports no additional respiratory complaints, Reports cough and Denies dyspnea Gastrointestinal: Gastrointestinal: Reports no additional gastrointestinal complaints, Denies abdominal pain, Denies melena, Denies hematochezia, Denies change in bowel habits and Denies change in stool character Genitourinary: Genitourinary: Denies hematuria, Denies urinary frequency, Denies dysuria, Denies urinary incontinence, Denies urinary hesitancy and Denies urinary urgency Musculoskeletal: Musculoskeletal: Reports no additional musculoskeletal complaints, Denies numbness and Denies tingling Neurologic: Denies dizziness, Denies loss of vision, Denies numbness and Denies tingling Psychiatric: Psychiatric: Reports no additional psychiatric complaints Endocrine: Endocrine: Reports no additional endocrine complaints Hematologic/Lymphatic: Hematologic/Lymphatic: Reports no additional hematologic/lymphatic complaints Allergic/Immunologic: Allergic/Immunologic: Reports no additional allergic/immunologic complaints PMFSH Past Medical History Attestation statement: The following information was validated with the patient. Source: old records reviewed and nursing notes reviewed Medical History Dysplasia of cervix, low grade (DEE 1) Plantar fasciitis Chronic migraine Iron deficiency Depression Hyperlipidemia LDL goal <100 Essential hypertension Type 2 diabetes mellitus with hyperglycemia Surgical History Hx of tubal ligation Family History Family History Father No problems noted. Mother HTN (hypertension) Maternal Grandfather HTN (hypertension) Myocardial infarct Maternal Grandmother Diabetes Breast cancer Maternal Aunt Diabetes Social History Social History Household Members: Children Alcohol intake: former Patient Tobacco Use Status: Never used Tobacco Smoked in Last 30 Days: No Use of substances other than those prescribed or required for medical reasons: No Advance Directives: No Advance Directives Information Provided: Yes Physical Exam ED Vital Signs: Vital Signs - 24 hr 08/21/24 11:24 08/21/24 13:18 08/21/24 13:29 Temperature Pulse Rate 99 89 92 Respiratory Rate 18 16 19 Blood Pressure 120/76 120/78 Pulse Oximetry 98 99 Oxygen Delivery Method Room Air Room Air 08/21/24 13:48 Temperature 98 F Pulse Rate 88 Respiratory Rate 18 Blood Pressure 120/78 Pulse Oximetry 99 Oxygen Delivery Method Room Air BMI result Body Mass Index 29.1 Const General: cooperative, no acute distress, alert and awake Nutritional Appearance: well nourished Orientation/consciousness: patient oriented x3 Limitations: no limitations [facility] Head: Yes normal to inspection and Yes atraumatic Ears: hearing grossly normal bilaterally and external ears normal General nose exam: Normal external nose present, no nasal discharge noted and no epistaxis Face and sinus: Yes normal facial exam, No abrasion and No laceration Mouth: Normal oral and palatal mucosa present, no drooling and no muffled voice Eyes General: appearance normal, both eyes and all related structures Periorbital: periorbital findings normal Eyelids: Yes eyelids normal Conjunctivae: conjunctivae normal Pupils: Equal, round and reactive pupils present EOM: EOMs intact bilaterally Neck Neck: Yes normal visual inspection, Yes full ROM and Yes no lymphadenopathy Chest Chest palpation & inspection: normal inspection of the chest Resp Effort & Inspection: normal respiratory effort and able to speak in complete sentences Auscultation: clear to auscultation bilaterally GI Inspection: Yes normal to inspection Neuro General: patient oriented x3 and moves all extremities Cranial nerves: Yes Equal, round and reactive pupils present Cognition (Neuro): normal cognition Extrem General: Yes normal to inspection, Yes full ROM and Yes capillary refill normal Psych Appearance: grossly normal Mental Status: mental status grossly normal Affect: normal affect Attitude: cooperative Thought process: Normal thought process present Thought content: Normal thought content present Insight: Good insight present (Psych) Medications Administered Discontinued Medications Generic Name Dose Route Start Last Admin Trade Name Esperanza PRN Reason Stop Dose Admin Albuterol/Ipratropium 3 ml 08/21/24 13:27 08/21/24 13:29 Albuterol/Iprat 2.5/0.5mg 3 Ml Ampul.Neb INHALE 08/21/24 13:28 3 ml ONCE ONE Administration Medical Decision Making Medical Decision Making [facility] Narrative: Patient is a 48 year old assigned female at with a history of DM presenting to the emergency department today with a persistent cough. Patient's physical exam was unremarkable. Patient's blood work showed a mild WBC count of 13.3 but were otherwise unremarkable. Patient's EKG was unremarkable. Patient's chest x-ray showed no acute process. Patient's clinical presentation is most consistent with post viral cough and possible chronic lung disease secondary to COVID-19. I explained my physical exam findings as well as all test results to the patient. I answered all questions asked by the patient. I stressed the importance of the patient taking her medication as directed (either prescribed or as the over the counter packaging recommends). I stressed the importance of the patient following up with her primary care provider and pulmnologist. I stressed the importance of the patient returning to the emergency department immediately if her symptoms were to worsen or if she were to develop any dizziness, shortness of breath, difficulty breathing, chest pain, blurry vision, loss of vision, nausea, vomiting, abdominal pain, fever, chills, back pain, or any other complaints. Patient verbalized agreement and understanding with this treatment plan and discharge. Differential Diagnosis Differential Diagnoses: The differential diagnosis associated with the presentation includes Cough Chronic cough Post viral cough Admission/Observation Consideration of admission/observation: Escalation of care including admission/observation considered Patient would have been admitted to the hospital had her work up had any findings where hospital admission was appropriate and her clinical presentation warranted hospital admission. Lab Data [facility] Lab Attestation statement: I reviewed the patient's lab results. My interpretation of these results are in the MDM Rationale portion of this note. 08/21/24 11:57 08/21/24 11:57 Labs: Lab Results 08/21/24 08/21/24 Range/Units 11:57 13:17 WBC 13.3 H (4.8-10.8) X10*3/uL RBC 5.14 (4.20-5.50) X10*6/uL Hgb 12.8 (12.0-16.0) g/dl Hct 38.7 (37.0-47.0) % MCV 75.3 L (80.0-98.0) fL MCH 24.9 L (27.0-33.0) pg MCHC 33.1 (31.0-35.0) g/dl RDW 15.5 (11.0-16.0) % Plt Count 436 H (160-400) X10*3/uL MPV 9.4 (9.4-12.3) fL Immature Gran % (Auto) 0.2 (0.0-0.4) % Neut % (Auto) 86.5 H (45-73) % Lymph % (Auto) 10.6 L (20-40) % Milam % (Auto) 2.6 (2-11) % Eos % (Auto) 0.0 (0-4) % Baso % (Auto) 0.1 (0-2) % Lymph # (Auto) 1.4 (1.2-4.9) X10*3/uL Milam # (Auto) 0.4 (0.1-1.2) X10*3/uL Eos # (Auto) 0.0 (0.0-0.4) X10*3/uL Baso # (Auto) 0.0 (0.0-0.2) X10*3/uL Abs Immat Gran (auto) 0.03 (0.00-0.03) X10*3/uL Absolute Neuts (auto) 11.5 H (2.0-8.3) x10*3/uL Absolute Nucleated RBC 0.000 (0.0-0.012) X10*3/uL Nucleated RBC % (auto) 0.0 (0.0-0.2) /100WBC Sodium 133 L (135-145) mmol/L Potassium 4.6 (3.3-5.1) mmol/L Chloride 102 (96-108) mmol/L Carbon Dioxide 19 L (22-29) mmol/L Anion Gap 17 (12-20) BUN 22 H (9-16) mg/dL Creatinine 0.82 (0.5-1.4) mg/dL Estim Creat Clear Calc 88.5 Estimated GFR > 60 Random Glucose 184 H (60-115) mg/dL Calcium 11.1 H D (8.4-10.2) mg/dL Magnesium 2.1 (1.6-2.6) mg/dL Total Bilirubin 0.6 (0.0-1.0) mg/dL AST 19 (5-31) U/L ALT 22 (0-31) U/L Alkaline Phosphatase 79 (39-117) U/L Troponin I High Sens < 2.7 (<3.5-17.0) ng/L Total Protein 7.8 (6.5-8.0) g/dL Albumin 4.4 (3.5-5.0) g/dL Influenza Type A (PCR) NEGATIVE (Negative) Influenza Type B (PCR) NEGATIVE (Negative) RSV RNA Qual (PCR) NEGATIVE (Negative) SARS-CoV-2 RNA (RT-PCR) NEGATIVE (Negative) Independent Interpretation I performed an independent interpretation of an: EKG and Plain X-Ray Interpretation: My interpretation is in agreement with the radiologist's impression of this imaging study. L EXAMINATION: XR CHEST CLINICAL INFORMATION: Chest pain. Cough. COMPARISON: X-ray dated August 11, 2024 TECHNIQUE: 2 views of the chest were obtained. FINDINGS: No consolidation, pleural effusion or pneumothorax. Cardiomediastinal silhouette is normal in size. Multilevel thoracic spondylosis, mild. XR/XR chest 2V IMPRESSION: No acute airspace disease. Electronically signed by: Art Sweeney MD 08/21/2024 12:08 PM [facility] Dictated By: Art Dotson MD Signed By: Electronically signed by Art Huitron MD 08/21/24 1208 Vent. Rate: 098 BPM Atrial Rate: 098 BPM P-R Int: 148 ms QRS Dur: 080 ms QT Int: 326 ms P-R-T Axes: 061 016 004 degrees QTc Int: 416 ms Normal sinus rhythm Normal ECG When compared with ECG of 11-AUG-2024 08:36, Nonspecific T wave abnormality no longer evident in Anterior leads Referred By: Generic ED Physician Electronically Signed By:JORDY SMYTH MD Dictated By: Jordy Smyth MD Signed By: Electronically signed by Jordy Smyth MD 08/21/24 7517 Radiology Impression Discussion of test interpretation with radiology: I have reviewed the radiologist's reading. Independent Historian Clinical information obtained from an independent historian. History obtained from or confirmed by: EMS (EMS provided additional history and confirmed the history provided by the patient.) Discharge Plan Discharge Clinical Impression: Chronic cough Patient Disposition: Home, Self-Care Instructions: Chronic Cough (ED) Additional Instructions: Follow up with your primary care provider and a steamship agent for further evaluation of your chronic cough. Return to the emergency department immediately if your symptoms worsen or if you develop any dizziness, shortness of breath, difficulty breathing, chest pain, blurry vision, loss of vision, nausea, vomiting, abdominal pain, fever, chills, back pain, or any other complaints. Acuda a valdez m?dico de cabecera y a un neum?logo para jacquie evaluaci?n m?s exhaustiva de valdez tos cr?celeste. Acuda inmediatamente al servicio de urgencias si dieter s?ntomas empeoran o si presenta mareos, falta de aliento, dificultad para respirar, dolor tor?cico, visi?n borrosa, p?rdida de visi?n, n?useas, v?mitos, dolor abdominal, fiebre, escalofr?os, dolor de espalda o cualquier otra molestia. Prescriptions: No Action blood sugar diagnostic [FreeStyle Lite Strips] Strip 1 strip miscellaneous TID Qty: 100 11RF Trulicity 1.5 mg/0.5 mL pen injector 1.5 mg subcut QWEEK Qty: 2 0RF lancets [TRUEplus Lancets] 33 gauge misc 1 gauge miscellaneous TID Qty: 100 11RF Invokana 300 mg tablet 300 mg PO QAM Qty: 30 0RF sennosides [Natural Senna Laxative] 8.6 mg tablet 17.2 mg PO BEDTIME Qty: 180 1RF metronidazole 0.75 % (37.5mg/5 gram) gel 1 appful vaginal BEDTIME 5 Days Qty: 70 0RF pantoprazole 40 mg tablet,delayed release (DR/EC) 40 mg PO DAILY Qty: 90 2RF Rx Instructions: take one tablet half an hour before breakfast famotidine 40 mg tablet 40 mg PO BEDTIME Qty: 90 3RF docusate sodium 100 mg capsule 100 mg PO BEDTIME Qty: 90 3RF clotrimazole [Antifungal (clotrimazole)] 1 % cream 1 appl topical TID Qty: 45 0RF Rx Instructions: Until better benzonatate 200 mg capsule 200 mg PO TID PRN (Reason: cough) Qty: 10 0RF cyclobenzaprine 10 mg tablet 10 mg PO TID Qty: 10 0RF naproxen [Naprosyn] 500 mg tablet 500 mg PO BID Qty: 20 0RF doxycycline hyclate 100 mg capsule 100 mg PO BID 10 Days Qty: 20 0RF prednisone 20 mg tablet 40 mg PO DAILY 5 Days Qty: 10 0RF ketorolac 10 mg tablet 10 mg PO TID PRN (Reason: pain) 5 Days Qty: 15 0RF prednisone 20 mg tablet 20 mg PO DAILY 12 Days Qty: 26 0RF Rx Instructions: Take 3 tablets for 5 days THEN; Take 2 tablets for 4 days THEN; Take 1 tablet for 3 days lisinopril 5 mg tablet 5 mg PO DAILY atorvastatin 20 mg tablet 20 mg PO DAILY metformin 500 mg tablet 500 mg PO BID gabapentin 300 mg capsule 300 mg PO TID cyclobenzaprine 5 mg tablet 5 mg PO BEDTIME PRN Zyrtec 10 mg capsule 10 mg PO DAILY sertraline [Zoloft] 50 mg tablet 50 mg PO DAILY albuterol sulfate [ProAir HFA] 90 mcg/actuation HFA aerosol inhaler 2 puff inhalation Q4-6H PRN alum-mag hydroxide-simeth [Mylanta Maximum Strength] 400-400-40 mg/5 mL suspension 5 ml PO QID PRN bisacodyl [Dulcolax (bisacodyl)] 5 mg tablet,delayed release (DR/EC) 10 mg PO ONCE 1 Days Qty: 2 0RF Rx Instructions: take 2 tabs at noon the day before your colonoscopy polyethylene glycol 3350 [Miralax] 17 gram/dose powder 238 g PO ONCE Qty: 238 0RF Rx Instructions: As directed by gastroenterology department at [facility] medroxyprogesterone [Depo-Provera] 150 mg/mL suspension 150 mg IM Q12W Qty: 1 5RF Rx Instructions: Start in 1st couple of days of next menses. fluconazole 150 mg tablet 150 mg PO Q3D 0 Days Qty: 2 2RF Rx Instructions: may repeat second dose 72 hrs after first dose if symptoms persist miconazole nitrate [Miconazole-7] 2 % cream 1 appful vaginal BEDTIME 7 Days Qty: 45 3RF Referrals: [facility] Pulmonology Services [Provider Group] (Call to establish and follow up with a steamship agent. Llame para establecer y seguir con un neum?logo. ) Lissy Gracia MD [Primary Care Provider] - Interventions: ED Discharge Assessment Last Done: 08/21/24 13:48 Discharge Date/Time: 08/21/24 13:49 Print Language: Albanian
[2024-08-21 13:29] VITALS: PULSE 92; RESP 19; O2SAT 96
[2024-08-21] MEDS: Albuterol/Iprat 2.5/0.5MG 3 ML AMPUL.NEB INHALE (13:29)
[2024-08-21 13:48] VITALS: BP 120/78; PULSE 88; RESP 18; TEMP 36.6; O2SAT 99
[2024-08-21 14:11] LABS: Influenza A PCR NEGATIVE (Negative); Influenza B PCR NEGATIVE (Negative); Resp Syncy Virus RNA Qual PCR NEGATIVE (Negative); SARS COV2 PCR INHOUSE NEGATIVE (Negative)
== END 2024-08-21 13:49 | disposition home or self-care (01) ==
PROVIDERS: Emergency Provider Emergency Medicine; PCP General Practice
DX: R05.3 Chronic cough (principal); Z03.818 Encounter for observation for suspected exposure to other biological agents ruled out; E11.9 Type 2 diabetes mellitus without complications; I10 Essential (primary) hypertension; E78.5 Hyperlipidemia, unspecified; Z79.899 Other long term (current) drug therapy; Z79.85 Long-term (current) use of injectable non-insulin antidiabetic drugs; Z79.02 Long term (current) use of antithrombotics/antiplatelets; Z79.84 Long term (current) use of oral hypoglycemic drugs
CPT/HCPCS: 0241U; 36415; 71046; 80053; 83735; 84484; 85025; 93005; 94640; 99284; 99285

== ENCOUNTER → 2024-08-21 11:12 | Outpatient (BNV) | payer MEDICAID, SELFPAY | PROVIDERS: Emergency Provider Emergency Medicine; PCP General Practice; Visit Provider Internal Medicine Cardiovascular Disease | DX: R07.9 Chest pain, unspecified (principal) | CPT/HCPCS: 93010 ==

== ENCOUNTER → 2024-08-21 11:30 | Outpatient (BNV) | payer MEDICAID, SELFPAY | PROVIDERS: PCP General Practice; Visit Provider Radiology Diagnostic Radiology | DX: R07.9 Chest pain, unspecified (principal); R05.9 Cough, unspecified | CPT/HCPCS: 71046 ==

== ENCOUNTER 2024-08-28 12:05 | Outpatient (REF) | payer MEDICAID, SELFPAY ==
[2024-08-28 13:54] LABS: B Type Natriuretic Peptide < 10 pg/mL (<100)
[2024-08-28 14:05] LABS: Alanine Aminotransferase 30 U/L (0-31); Albumin Level 4.2 g/dL (3.5-5.0); Alkaline Phosphatase 84 U/L (39-117); Anion Gap 13 (12-20); Aspartate Amino Transferase 20 U/L (5-31); Bilirubin Total 0.2 mg/dL (0.0-1.0); Blood Urea Nitrogen 22 mg/dL (9-16); Calcium 9.8 mg/dL (8.4-10.2); Carbon Dioxide 22 mmol/L (22-29); Chloride 104 mmol/L (96-108); Estimated Glomerular Filt Rate > 60; Glucose Random 208 mg/dL (60-115); Potassium 4.2 mmol/L (3.3-5.1); Sodium 135 mmol/L (135-145); Total Protein 7.4 g/dL (6.5-8.0)
== END 2024-08-28 12:06 | disposition home or self-care (01) ==
LOC: HO.HHCL 12:05
PROVIDERS: Visit Provider General Practice
DX: R06.01 Orthopnea (principal)
CPT/HCPCS: 36415; 80053; 83880

== ENCOUNTER 2024-08-30 03:19 | Emergency (ER) | payer MEDICAID, SELFPAY ==
--- NOTE | 2024-08-30 | ECG_ITS ---
Test Reason : chest pain Blood Pressure : / mmHG Vent. Rate : 095 BPM Atrial Rate : 095 BPM P-R Int : 144 ms QRS Dur : 080 ms QT Int : 344 ms P-R-T Axes : 049 024 -13 degrees QTc Int : 432 ms Normal sinus rhythm T wave abnormality, consider inferior ischemia Abnormal ECG When compared with ECG of 21-AUG-2024 11:21, No significant change was found Referred By: Generic ED Physician Electronically Signed By:Karl Rivera
--- NOTE | ~2024-08-30 | XR_ITS ---
EXAMINATION: XR CHEST CLINICAL INFORMATION: Cough. Upper respiratory tract infection. COMPARISON: Chest radiograph 08/21/2024 TECHNIQUE: Frontal view of the chest was obtained. FINDINGS: Normal appearance of the cardiomediastinal structures. Pleura normal pattern of pulmonary vasculature. No focal pulmonary consolidation. No skeletal abnormalities identified. XR/XR chest 1V IMPRESSION: No cardiopulmonary abnormalities identified. Lungs clear. Electronically signed by: Enmanuel Briggs MD 08/30/2024 04:33 AM [facility]
[2024-08-30 03:32] VITALS: BP 108/64; PULSE 94; RESP 18; TEMP 36.8; O2SAT 98; BMI 28.4
[2024-08-30 04:03] LABS: MANUAL DIFF FLAG NO
[2024-08-30 04:04] LABS: Basophils Percent Auto 0.3 % (0-2); Eosinophils Absolute Auto 0.1 X10*3/uL (0.0-0.4); Eosinophils Percent Auto 1.4 % (0-4); Hematocrit 38.4 % (37.0-47.0); Hemoglobin 12.3 g/dl (12.0-16.0); Imm Gran Abs Auto 0.02 X10*3/uL (0.00-0.03); Imm Gran Pct Auto 0.3 % (0.0-0.4); Lymphocytes Absolute Auto 1.9 X10*3/uL (1.2-4.9); Lymphocytes Percent Auto 24.6 % (20-40); Mean Corpuscular Hemoglobin 24.8 pg (27.0-33.0); Mean Corpuscular Volume 77.6 fL (80.0-98.0); Monocytes Absolute Auto 0.4 X10*3/uL (0.1-1.2); Monocytes Percent Auto 5.2 % (2-11); Neutrophils Absolute Auto 5.2 x10*3/uL (2.0-8.3); Neutrophils Percent Auto 68.2 % (45-73); Platelet Count 274 X10*3/uL (160-400); Red Blood Count 4.95 X10*6/uL (4.20-5.50); Red Cell Distribution Width 15.9 % (11.0-16.0); White Blood Count 7.7 X10*3/uL (4.8-10.8)
[2024-08-30 04:21] LABS: Alanine Aminotransferase 31 U/L (0-31); Albumin Level 4.2 g/dL (3.5-5.0); Alkaline Phosphatase 101 U/L (39-117); Anion Gap 17 (12-20); Aspartate Amino Transferase 23 U/L (5-31); Bilirubin Total 0.3 mg/dL (0.0-1.0); Blood Urea Nitrogen 22 mg/dL (9-16); Calcium 9.3 mg/dL (8.4-10.2); Carbon Dioxide 20 mmol/L (22-29); Chloride 104 mmol/L (96-108); Creatinine Clr Calc Pharmacy 84.3; Estimated Glomerular Filt Rate > 60; Glucose Random 326 mg/dL (60-115); Lipase 33 U/L (8-78); Potassium 4.4 mmol/L (3.3-5.1); Sodium 137 mmol/L (135-145); Total Protein 7.1 g/dL (6.5-8.0)
[2024-08-30 04:25] LABS: B Type Natriuretic Peptide < 10 pg/mL (<100)
[2024-08-30 04:29] LABS: Troponin-I High Sensitivity < 2.7 ng/L (<3.5-17.0)
[2024-08-30 06:21] VITALS: O2SAT 98
[2024-08-30 06:35] VITALS: BP 135/77; PULSE 91; RESP 18; TEMP 36.7; O2SAT 98
--- NOTE | 2024-08-30 07:41 | ED_ITS ---
HPI - General Adult General Chief complaint: Upper Respiratory Symptoms Stated complaint: chest pain, resp symptoms Time Seen by Provider: 08/30/24 06:49 Source: patient Mode of arrival: ambulatory Limitations: no limitations History of Present Illness ED Provider: ANJALI Castrejon HPI narrative: This is a 48-year-old female history of diabetes, hyperlipidemia, hypertension, obesity presenting to the emergency department with cough, nonproductive in nature ongoing for the past 2-3 months, reports 2-3 months ago she had COVID and since then she has been coughing. She reports when she coughs a lot her substernal region starts to hurt. She reports she has been referred to pulmonology however does not have an appointment yet. She denies shortness of breath. She reports that when she is not coughing she does not have shortness of breath or chest pain. She does report she has allergies and takes daily medicine for allergies. She denies recent sick contacts, fevers, chills, nausea, vomiting, headache, vision changes, dizziness, leg swelling, shortness of breath, wheezing. Related Data Home Medications ?Medication ?Instructions ?Recorded ?Confirmed albuterol sulfate 90 mcg/actuation 2 puff inhalation Q4-6H PRN 08/07/20 11/22/23 aerosol inhaler (ProAir HFA) atorvastatin 20 mg tablet 20 mg PO DAILY 08/07/20 11/22/23 cetirizine 10 mg capsule (Zyrtec) 10 mg PO DAILY 08/07/20 11/22/23 cyclobenzaprine 5 mg tablet 5 mg PO BEDTIME PRN 08/07/20 11/22/23 gabapentin 300 mg capsule 300 mg PO TID 08/07/20 11/22/23 lisinopril 5 mg tablet 5 mg PO DAILY 08/07/20 11/22/23 metformin 500 mg tablet 500 mg PO BID 08/07/20 11/22/23 sertraline 50 mg tablet (Zoloft) 50 mg PO DAILY 08/07/20 11/22/23 aluminum-mag hydroxide-simethicone 5 ml PO QID PRN 04/19/22 11/22/23 400 mg-400 mg-40 mg/5 mL oral susp (Mylanta Maximum Strength) Previous Rx's ?Medication ?Instructions ?Recorded clotrimazole 1 % topical cream 1 appl topical TID #45 grams 01/03/21 (Antifungal (clotrimazole)) blood sugar diagnostic (FreeStyle 1 strip miscellaneous TID for 02/17/21 Lite Strips) diabetes mellitus #100 strips dulaglutide 1.5 mg/0.5 mL 1.5 mg (0.5 mL) subcut QWEEK #2 mL 02/04/22 subcutaneous pen injector (Trulicity) lancets 33 gauge (TRUEplus Lancets) 1 gauge miscellaneous TID for 02/16/22 diabetes mellitus #100 ea benzonatate 200 mg capsule 200 mg PO TID PRN cough #10 caps 05/15/22 canagliflozin 300 mg tablet 300 mg PO QAM #30 tabs 07/13/22 (Invokana) bisacodyl 5 mg tablet,delayed 10 mg (2 x 5 mg) PO ONCE 1 day #2 09/21/22 release (Dulcolax (bisacodyl)) tabs polyethylene glycol 3350 17 238 g PO ONCE #238 grams 09/21/22 gram/dose oral powder (Miralax) sennosides 8.6 mg tablet (Natural 17.2 mg (2 x 8.6 mg) PO BEDTIME 12/29/22 Senna Laxative) constipation #180 tabs fluconazole 150 mg tablet 150 mg PO Q3D 2 doses #2 tabs 04/21/23 medroxyprogesterone 150 mg/mL 150 mg IM Q12W #1 mL 04/21/23 intramuscular suspension (Depo-Provera) metronidazole 0.75 % (37.5 mg/5 1 appful vaginal BEDTIME 5 days 05/03/23 gram) vaginal gel #70 grams pantoprazole 40 mg tablet,delayed 40 mg PO DAILY #90 tabs 09/12/23 release doxycycline hyclate 100 mg capsule 100 mg PO BID 10 days #20 caps 11/21/23 ketorolac 10 mg tablet 10 mg PO TID PRN pain 5 days #15 11/21/23 tabs prednisone 20 mg tablet 40 mg (2 x 20 mg) PO DAILY 5 days 11/21/23 #10 tabs miconazole nitrate 2 % vaginal 1 appful vaginal BEDTIME 7 days 11/22/23 cream (Miconazole-7) #45 grams cyclobenzaprine 10 mg tablet 10 mg PO TID #10 tabs 01/30/24 naproxen 500 mg tablet (Naprosyn) 500 mg PO BID #20 tabs 01/30/24 docusate sodium 100 mg capsule 100 mg PO BEDTIME #90 caps 04/04/24 famotidine 40 mg tablet 40 mg PO BEDTIME #90 tabs 04/04/24 prednisone 20 mg tablet 20 mg PO DAILY 12 days #26 tabs 08/11/24 albuterol sulfate 90 mcg/actuation 2 inh inhalation Q4-6H PRN 08/30/24 breath activated powder inhaler shortness of breath or wheezing #1 ea nystatin 100,000 unit/mL oral 1 ml PO DAILY #60 mL 08/30/24 suspension Allergies Allergy/AdvReac Type Severity Reaction Status Date / Time Seasonal Allergies Allergy Mild Runny Nose Verified 08/30/24 03:34 Review of Systems 2 Review of Systems: Yes all other systems are reviewed and are negative [facility] Past Medical History Attestation statement: The following information was validated with the patient. Source: old records reviewed and nursing notes reviewed Medical History Dysplasia of cervix, low grade (DEE 1) Plantar fasciitis Chronic migraine Iron deficiency Depression Hyperlipidemia LDL goal <100 Essential hypertension Type 2 diabetes mellitus with hyperglycemia Surgical History Hx of tubal ligation Family History Family History Father No problems noted. Mother HTN (hypertension) Maternal Grandfather HTN (hypertension) Myocardial infarct Maternal Grandmother Diabetes Breast cancer Maternal Aunt Diabetes Social History Social History Household Members: Children Unable to assess alcohol history related to: Unknown Alcohol intake: former Patient Tobacco Use Status: Never used Tobacco Use of substances other than those prescribed or required for medical reasons: No Advance Directives: No Do you have a plan to hurt others: No Plan Physical Exam ED Vital Signs: Vital Signs - 24 hr 08/30/24 03:32 08/30/24 06:21 08/30/24 06:35 Temperature 98.2 F 98.1 F Pulse Rate 94 91 Respiratory Rate 18 18 Blood Pressure 108/64 135/77 Pulse Oximetry 98 98 98 Oxygen Delivery Method Room Air Room Air BMI result Body Mass Index 28.4 vss Appearance: Alert.? Oriented X3.? No acute distress.? Head: Normocephalic, atraumatic, no step-offs or deformities Eyes: Pupils equal, round and reactive to light.? ENT: Pharynx normal.? Neck: Normal inspection.? Neck supple.? CVS: Normal heart rate and rhythm.? Pulses normal.? Respiratory: No respiratory distress.? Breath sounds normal.? Abdomen: Soft and nontender.? Skin: Skin warm and dry.? Normal skin color.? Normal skin turgor.? Extremities: No lower extremity edema.? No calf ttp. 5/5 strength to bilateral upper and lower extremities Neuro: Oriented X 3.? No motor deficit.? No sensory deficit. CN 2-12 intact Course Reevaluation(s) Reevaluation #1: Patient had me look in her mouth, she reports she recently started an inhaler neural steroids, and she feels like she has an infection in her mouth, thrush is present. Will send nystatin. CBC unremarkable. Chemistry with no acute findings meeting intervention. BNP within normal limits. Troponin negative x2, nonischemic EKG. Chest x-ray with no acute cardiopulmonary abnormalities. Educated patient on diagnosis and treatment plan, answered all question, patient verbalizes understanding. At this time patient will be discharged home, advised to return with new or worsening symptoms. Educated on worrisome signs and symptoms and when to return. At this time I feel comfortable discharge home. Time: 07:50 Medications Administered Discontinued Medications Generic Name Dose Route Start Last Admin Trade Name Freq PRN Reason Stop Dose Admin Naproxen 500 mg 08/30/24 07:44 08/30/24 08:04 Naproxen 500 Mg Tablet PO 08/30/24 07:45 500 mg ONCE ONE Administration Medical Decision Making Medical Decision Making MDM Narrative: 48-year-old female presents with cough and chest discomfort for the past 2-3 months. Physical exam benign. History and physical exam concerning for long COVID versus bronchitis versus asthma. Unlikely ACS, PE, dissection, cardiopulmonary distress. Plan labs, imaging, EKG. Differential Diagnosis Differential Diagnoses: The differential diagnosis associated with the presentation includes (History and physical exam concerning for long COVID versus bronchitis versus asthma. Unlikely ACS, PE, dissection, cardiopulmonary distress.) Admission/Observation Consideration of admission/observation: Escalation of care including admission/observation considered Lab Data MDM Lab Attestation statement: I reviewed the patient's lab results. 08/30/24 03:57 08/30/24 03:57 Labs: Lab Results 08/30/24 08/30/24 Range/Units 03:57 07:13 WBC 7.7 (4.8-10.8) X10*3/uL RBC 4.95 (4.20-5.50) X10*6/uL Hgb 12.3 (12.0-16.0) g/dl Hct 38.4 (37.0-47.0) % MCV 77.6 L (80.0-98.0) fL MCH 24.8 L (27.0-33.0) pg MCHC 32.0 (31.0-35.0) g/dl RDW 15.9 (11.0-16.0) % Plt Count 274 D (160-400) X10*3/uL MPV 10.0 (9.4-12.3) fL Immature Gran % (Auto) 0.3 (0.0-0.4) % Neut % (Auto) 68.2 (45-73) % Lymph % (Auto) 24.6 (20-40) % [place] % (Auto) 5.2 (2-11) % Eos % (Auto) 1.4 (0-4) % Baso % (Auto) 0.3 (0-2) % Lymph # (Auto) 1.9 (1.2-4.9) X10*3/uL [place] # (Auto) 0.4 (0.1-1.2) X10*3/uL Eos # (Auto) 0.1 (0.0-0.4) X10*3/uL Baso # (Auto) 0.0 (0.0-0.2) X10*3/uL Abs Immat Gran (auto) 0.02 (0.00-0.03) X10*3/uL Absolute Neuts (auto) 5.2 (2.0-8.3) x10*3/uL Absolute Nucleated RBC 0.000 (0.0-0.012) X10*3/uL Nucleated RBC % (auto) 0.0 (0.0-0.2) /100WBC Sodium 137 (135-145) mmol/L Potassium 4.4 (3.3-5.1) mmol/L Chloride 104 (96-108) mmol/L Carbon Dioxide 20 L (22-29) mmol/L Anion Gap 17 (12-20) BUN 22 H (9-16) mg/dL Creatinine 0.85 (0.5-1.4) mg/dL Estim Creat Clear Calc 84.3 Estimated GFR > 60 Random Glucose 326 H (60-115) mg/dL Calcium 9.3 (8.4-10.2) mg/dL Magnesium 2.0 (1.6-2.6) mg/dL Total Bilirubin 0.3 (0.0-1.0) mg/dL AST 23 (5-31) U/L ALT 31 (0-31) U/L Alkaline Phosphatase 101 (39-117) U/L Troponin I High Sens < 2.7 < 2.7 (<3.5-17.0) ng/L B-Natriuretic Peptide < 10 (<100) pg/mL Total Protein 7.1 (6.5-8.0) g/dL Albumin 4.2 (3.5-5.0) g/dL Lipase 33 (8-78) U/L Independent Interpretation I performed an independent interpretation of an: EKG (Vent. Rate : 095 BPM Atrial Rate : 095 BPM P-R Int : 144 ms QRS Dur : 080 ms QT Int : 344 ms P-R-T Axes : 049 024 -13 degrees QTc Int : 432 ms Normal sinus rhythm T wave abnormality, consider inferior ischemia Abnormal ECG When compared with ECG of 21-AUG-2024 11:21, N) Radiology Impression Discussion of test interpretation with radiology: I have reviewed the radiologist's reading. Tests considered The following testing was considered but not selected: Wells' Criteria for Pulmonary Embolism from [email or web address] on 08/30/2024 All calculations should be rechecked by clinician prior to use RESULT SUMMARY: 0.0 points Low risk group: 1.3% chance of PE in an ED population. Another study assigned scores <=4 as ?PE Unlikely? and had a 3% incidence of PE. INPUTS: Clinical signs and symptoms of DVT ?> 0 = No PE is #1 diagnosis OR equally likely ?> 0 = No Heart rate > 100 ?> 0 = No Immobilization at least 3 days OR surgery in the previous 4 weeks ?> 0 = No Previous, objectively diagnosed PE or DVT ?> 0 = No Hemoptysis ?> 0 = No Malignancy w/ treatment within 6 months or palliative ?> 0 = No Prescription Management I considered prescription management with: Other Chronic Conditions Patient?s care impacted by: Other (see hpi ) Critical Care Time Critical Care Time Critical Care Time: Yes Total Critical Care Time: 35 Attestation: I attest to this time spent taking care of the patient, obtaining history, physical, reviewing labs, imaging, treatment of patients condition +/- specialist/hospitalist consult Discharge Plan Discharge Clinical Impression: Oral thrush, Cough, Chest pain Patient Disposition: Still a Patient Instructions: Chest Pain (ED), Oral Candidiasis (ED), Chronic Cough (ED) Additional Instructions: Take your medications as prescribed. If you were prescribed antibiotics today, it is important that you take your medication to their entirety, do not skip any doses, do not finish them early. Follow-up with your primary care provider this week. Return to the emergency department with new or worsening symptoms. Such as fevers, chills, chest pain, shortness of breath, nausea, vomiting, dizziness, headache, vision changes, lethargy In case of emergency call 911 You can stop taking you clotrimazole oral pills and try the oral suspension Prescriptions: New nystatin 100,000 unit/mL suspension 1 ml PO DAILY Qty: 60 0RF Rx Instructions: swish and swallow albuterol sulfate 90 mcg/actuation aerosol powdr breath activated 2 inh inhalation Q4-6H PRN (Reason: shortness of breath or wheezing) Qty: 1 0RF No Action blood sugar diagnostic [FreeStyle Lite Strips] Strip 1 strip miscellaneous TID Qty: 100 11RF Trulicity 1.5 mg/0.5 mL pen injector 1.5 mg subcut QWEEK Qty: 2 0RF lancets [TRUEplus Lancets] 33 gauge misc 1 gauge miscellaneous TID Qty: 100 11RF Invokana 300 mg tablet 300 mg PO QAM Qty: 30 0RF sennosides [Natural Senna Laxative] 8.6 mg tablet 17.2 mg PO BEDTIME Qty: 180 1RF metronidazole 0.75 % (37.5mg/5 gram) gel 1 appful vaginal BEDTIME 5 Days Qty: 70 0RF pantoprazole 40 mg tablet,delayed release (DR/EC) 40 mg PO DAILY Qty: 90 2RF Rx Instructions: take one tablet half an hour before breakfast famotidine 40 mg tablet 40 mg PO BEDTIME Qty: 90 3RF docusate sodium 100 mg capsule 100 mg PO BEDTIME Qty: 90 3RF clotrimazole [Antifungal (clotrimazole)] 1 % cream 1 appl topical TID Qty: 45 0RF Rx Instructions: Until better benzonatate 200 mg capsule 200 mg PO TID PRN (Reason: cough) Qty: 10 0RF cyclobenzaprine 10 mg tablet 10 mg PO TID Qty: 10 0RF naproxen [Naprosyn] 500 mg tablet 500 mg PO BID Qty: 20 0RF doxycycline hyclate 100 mg capsule 100 mg PO BID 10 Days Qty: 20 0RF prednisone 20 mg tablet 40 mg PO DAILY 5 Days Qty: 10 0RF ketorolac 10 mg tablet 10 mg PO TID PRN (Reason: pain) 5 Days Qty: 15 0RF prednisone 20 mg tablet 20 mg PO DAILY 12 Days Qty: 26 0RF Rx Instructions: Take 3 tablets for 5 days THEN; Take 2 tablets for 4 days THEN; Take 1 tablet for 3 days lisinopril 5 mg tablet 5 mg PO DAILY atorvastatin 20 mg tablet 20 mg PO DAILY metformin 500 mg tablet 500 mg PO BID gabapentin 300 mg capsule 300 mg PO TID cyclobenzaprine 5 mg tablet 5 mg PO BEDTIME PRN Zyrtec 10 mg capsule 10 mg PO DAILY sertraline [Zoloft] 50 mg tablet 50 mg PO DAILY albuterol sulfate [ProAir HFA] 90 mcg/actuation HFA aerosol inhaler 2 puff inhalation Q4-6H PRN alum-mag hydroxide-simeth [Mylanta Maximum Strength] 400-400-40 mg/5 mL suspension 5 ml PO QID PRN bisacodyl [Dulcolax (bisacodyl)] 5 mg tablet,delayed release (DR/EC) 10 mg PO ONCE 1 Days Qty: 2 0RF Rx Instructions: take 2 tabs at noon the day before your colonoscopy polyethylene glycol 3350 [Miralax] 17 gram/dose powder 238 g PO ONCE Qty: 238 0RF Rx Instructions: As directed by gastroenterology department at [facility] medroxyprogesterone [Depo-Provera] 150 mg/mL suspension 150 mg IM Q12W Qty: 1 5RF Rx Instructions: Start in 1st couple of days of next menses. fluconazole 150 mg tablet 150 mg PO Q3D 0 Days Qty: 2 2RF Rx Instructions: may repeat second dose 72 hrs after first dose if symptoms persist miconazole nitrate [Miconazole-7] 2 % cream 1 appful vaginal BEDTIME 7 Days Qty: 45 3RF Referrals: [facility] [place] Pulmonology Services [Provider Group] - 3 days Print Language: Azeri
[2024-08-30 07:59] LABS: Troponin-I High Sensitivity < 2.7 ng/L (<3.5-17.0)
[2024-08-30] MEDS: NaPROXEN 500 MG TABLET PO (08:04)
[2024-08-30 08:46] VITALS: BP 135/77; PULSE 91; RESP 18; TEMP 36.7; O2SAT 98
== END 2024-08-30 08:47 | disposition still patient (30) ==
PROVIDERS: Physician Assistant; Emergency Provider Student in an Organized Health Care Education/Training Program; PCP General Practice
DX: B37.0 Candidal stomatitis (principal); R07.9 Chest pain, unspecified; R05.9 Cough, unspecified; I10 Essential (primary) hypertension; E11.9 Type 2 diabetes mellitus without complications; E78.5 Hyperlipidemia, unspecified; Z79.899 Other long term (current) drug therapy
CPT/HCPCS: 36415; 71045; 80053; 83690; 83735; 83880; 84484; 85025; 93005; 99284; 99285

== ENCOUNTER → 2024-08-30 03:19 | Outpatient (BNV) | payer MEDICAID, SELFPAY | PROVIDERS: Emergency Provider Student in an Organized Health Care Education/Training Program; PCP General Practice; Visit Provider Internal Medicine Cardiovascular Disease | DX: R07.9 Chest pain, unspecified (principal); R94.31 Abnormal electrocardiogram [ECG] [EKG] | CPT/HCPCS: 93010 ==

== ENCOUNTER → 2024-09-06 02:14 | Outpatient (BNV) | payer MEDICAID, SELFPAY | PROVIDERS: Emergency Provider Emergency Medicine; PCP General Practice; Visit Provider Internal Medicine Cardiovascular Disease | DX: R07.9 Chest pain, unspecified (principal) | CPT/HCPCS: 93010 ==

== ENCOUNTER 2024-09-06 02:17 | Emergency (ER) | payer MEDICAID, SELFPAY ==
--- NOTE | 2024-09-06 | ECG_ITS ---
Test Reason : CHEST PAIN Blood Pressure : / mmHG Vent. Rate : 078 BPM Atrial Rate : 078 BPM P-R Int : 164 ms QRS Dur : 084 ms QT Int : 370 ms P-R-T Axes : 048 021 004 degrees QTc Int : 421 ms Normal sinus rhythm Normal ECG When compared with ECG of 30-AUG-2024 03:19, No significant change was found Referred By: Generic ED Physician Electronically Signed By:NOHEMY SMYTH MD
--- NOTE | ~2024-09-06 | XR_ITS ---
EXAMINATION: XR CHEST CLINICAL INFORMATION: SOB COMPARISON: Chest radiograph 08/30/2024 TECHNIQUE: Frontal view of the chest was obtained. FINDINGS: Normal appearance of the cardiomediastinal structures. No effusions or pneumothoraces. No focal pulmonary consolidation. Central peribronchial wall thickening. XR/XR chest 1V IMPRESSION: *Central peribronchial wall thickening which may represent bronchitis and/or the chronic sequela of asthma. No focal pulmonary consolidation. Electronically signed by: Enmanuel Briggs MD 09/06/2024 06:38 AM ALEXA MONTENEGRO
[2024-09-06 02:30] VITALS: BP 141/70; PULSE 89; RESP 20; TEMP 36.6; O2SAT 98; BMI 27.4
[2024-09-06 02:39] LABS: Basophils Percent Auto 0.7 % (0-2); Eosinophils Absolute Auto 0.1 X10*3/uL (0.0-0.4); Eosinophils Percent Auto 2.2 % (0-4); Hematocrit 34.5 % (37.0-47.0); Hemoglobin 11.3 g/dl (12.0-16.0); Imm Gran Abs Auto 0.01 X10*3/uL (0.00-0.03); Imm Gran Pct Auto 0.2 % (0.0-0.4); Lymphocytes Absolute Auto 2.1 X10*3/uL (1.2-4.9); Lymphocytes Percent Auto 35.7 % (20-40); MANUAL DIFF FLAG SCAN; Mean Corpuscular HGB Conc 32.8 g/dl (31.0-35.0); Mean Corpuscular Hemoglobin 25.3 pg (27.0-33.0); Mean Corpuscular Volume 77.2 fL (80.0-98.0); Mean Platelet Volume 9.4 fL (9.4-12.3); Monocytes Absolute Auto 0.3 X10*3/uL (0.1-1.2); Monocytes Percent Auto 5.5 % (2-11); Neutrophils Absolute Auto 3.2 x10*3/uL (2.0-8.3); Neutrophils Percent Auto 55.7 % (45-73); Platelet Count 261 X10*3/uL (160-400); Red Blood Count 4.47 X10*6/uL (4.20-5.50); Red Cell Distribution Width 16.5 % (11.0-16.0); SCAN SMEAR FLAG 1; White Blood Count 5.8 X10*3/uL (4.8-10.8)
[2024-09-06 02:48] LABS: IDNOW Serial# 08D9AD1C; Strep A Nucleic Acid Negative (Negative)
[2024-09-06 02:59] LABS: SLIDE REVIEW VERIFIED
[2024-09-06 03:07] LABS: Alanine Aminotransferase 31 U/L (0-31); Albumin Level 4.1 g/dL (3.5-5.0); Alkaline Phosphatase 81 U/L (39-117); Anion Gap 14 (12-20); Aspartate Amino Transferase 26 U/L (5-31); Bilirubin Total 0.2 mg/dL (0.0-1.0); Blood Urea Nitrogen 15 mg/dL (9-16); Calcium 9.1 mg/dL (8.4-10.2); Carbon Dioxide 19 mmol/L (22-29); Chloride 108 mmol/L (96-108); Creatinine Clr Calc Pharmacy 91.6; Estimated Glomerular Filt Rate > 60; Glucose Random 193 mg/dL (60-115); Potassium 4.1 mmol/L (3.3-5.1); Sodium 137 mmol/L (135-145); Total Protein 6.7 g/dL (6.5-8.0)
[2024-09-06 03:15] LABS: Troponin-I High Sensitivity < 2.7 ng/L (<3.5-17.0)
--- NOTE | 2024-09-06 03:17 | MHC.EDTECH ---
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
--- NOTE | 2024-09-06 03:35 | ED_ITS ---
HPI - Chest Pain General Chief Complaint: Chest Pain Stated Complaint: Chest pain, sore throat Time Seen by Provider: 09/06/24 03:15 Source: patient, old records reviewed and diplomatic interpreter/translator Mode of arrival: ambulatory Limitations: no limitations History of Present Illness ED Provider: DR. Keys HPI narrative: 48-year-old female history of DM, HLD, HTN, obesity, presented to the ED with chest pain and shortness of breath symptoms has been going for 2-3 months now had multiple ED visit for similar symptoms patient was instructed to follow-up with fruit stuffer, patient felt chest pain and shortness of breath and got very anxious came to the hospital for further evaluation. Related Data Home Medications ?Medication ?Instructions ?Recorded ?Confirmed albuterol sulfate 90 mcg/actuation 2 puff inhalation Q4-6H PRN 08/07/20 11/22/23 aerosol inhaler (ProAir HFA) atorvastatin 20 mg tablet 20 mg PO DAILY 08/07/20 11/22/23 cetirizine 10 mg capsule (Zyrtec) 10 mg PO DAILY 08/07/20 11/22/23 cyclobenzaprine 5 mg tablet 5 mg PO BEDTIME PRN 08/07/20 11/22/23 gabapentin 300 mg capsule 300 mg PO TID 08/07/20 11/22/23 lisinopril 5 mg tablet 5 mg PO DAILY 08/07/20 11/22/23 metformin 500 mg tablet 500 mg PO BID 08/07/20 11/22/23 sertraline 50 mg tablet (Zoloft) 50 mg PO DAILY 08/07/20 11/22/23 aluminum-mag hydroxide-simethicone 5 ml PO QID PRN 04/19/22 11/22/23 400 mg-400 mg-40 mg/5 mL oral susp (Mylanta Maximum Strength) Previous Rx's ?Medication ?Instructions ?Recorded clotrimazole 1 % topical cream 1 appl topical TID #45 grams 01/03/21 (Antifungal (clotrimazole)) blood sugar diagnostic (FreeStyle 1 strip miscellaneous TID for 02/17/21 Lite Strips) diabetes mellitus #100 strips dulaglutide 1.5 mg/0.5 mL 1.5 mg (0.5 mL) subcut QWEEK #2 mL 02/04/22 subcutaneous pen injector (Trulicity) lancets 33 gauge (TRUEplus Lancets) 1 gauge miscellaneous TID for 02/16/22 diabetes mellitus #100 ea benzonatate 200 mg capsule 200 mg PO TID PRN cough #10 caps 05/15/22 canagliflozin 300 mg tablet 300 mg PO QAM #30 tabs 07/13/22 (Invokana) bisacodyl 5 mg tablet,delayed 10 mg (2 x 5 mg) PO ONCE 1 day #2 09/21/22 release (Dulcolax (bisacodyl)) tabs polyethylene glycol 3350 17 238 g PO ONCE #238 grams 09/21/22 gram/dose oral powder (Miralax) sennosides 8.6 mg tablet (Natural 17.2 mg (2 x 8.6 mg) PO BEDTIME 12/29/22 Senna Laxative) constipation #180 tabs fluconazole 150 mg tablet 150 mg PO Q3D 2 doses #2 tabs 04/21/23 medroxyprogesterone 150 mg/mL 150 mg IM Q12W #1 mL 04/21/23 intramuscular suspension (Depo-Provera) metronidazole 0.75 % (37.5 mg/5 1 appful vaginal BEDTIME 5 days 05/03/23 gram) vaginal gel #70 grams pantoprazole 40 mg tablet,delayed 40 mg PO DAILY #90 tabs 09/12/23 release doxycycline hyclate 100 mg capsule 100 mg PO BID 10 days #20 caps 11/21/23 ketorolac 10 mg tablet 10 mg PO TID PRN pain 5 days #15 11/21/23 tabs prednisone 20 mg tablet 40 mg (2 x 20 mg) PO DAILY 5 days 11/21/23 #10 tabs miconazole nitrate 2 % vaginal 1 appful vaginal BEDTIME 7 days 11/22/23 cream (Miconazole-7) #45 grams cyclobenzaprine 10 mg tablet 10 mg PO TID #10 tabs 01/30/24 naproxen 500 mg tablet (Naprosyn) 500 mg PO BID #20 tabs 01/30/24 docusate sodium 100 mg capsule 100 mg PO BEDTIME #90 caps 04/04/24 famotidine 40 mg tablet 40 mg PO BEDTIME #90 tabs 04/04/24 prednisone 20 mg tablet 20 mg PO DAILY 12 days #26 tabs 08/11/24 albuterol sulfate 90 mcg/actuation 2 inh inhalation Q4-6H PRN 08/30/24 breath activated powder inhaler shortness of breath or wheezing #1 ea nystatin 100,000 unit/mL oral 1 ml PO DAILY #60 mL 08/30/24 suspension Allergies Allergy/AdvReac Type Severity Reaction Status Date / Time Seasonal Allergies Allergy Mild Runny Nose Verified 09/06/24 02:33 Review of Systems 2 Review of Systems: all other systems are reviewed and are negative Constitutional: Reports as per HPI and Reports no additional constitutional complaints Eyes: Reports as per HPI and Reports no additional eye complaints Reports system reviewed and no additional complaints, except as documented Cardiovascular: Reports as per HPI and Reports no additional cardiovascular complaints Respiratory: Reports as per HPI and Reports no additional respiratory complaints Gastrointestinal: Reports as per HPI and Reports no additional gastrointestinal complaints Genitourinary: Reports no additional female genitourinary complaints Musculoskeletal: Reports no additional musculoskeletal complaints Skin/Breast: Reports system reviewed and no additional complaints, except as docu Psychiatric: Reports no additional psychiatric complaints Endocrine: Reports no additional endocrine complaints Hematologic/Lymphatic: Reports no additional hematologic/lymphatic complaints Allergic/Immunologic: Reports no additional allergic/immunologic complaints Reports system reviewed and no additional complaints, except as documented and Reports Abnormal speech present [facility] Past Medical History Medical History Dysplasia of cervix, low grade (DEE 1) Plantar fasciitis Chronic migraine Iron deficiency Depression Hyperlipidemia LDL goal <100 Essential hypertension Type 2 diabetes mellitus with hyperglycemia Surgical History Hx of tubal ligation Family History Family History Father No problems noted. Mother HTN (hypertension) Maternal Grandfather HTN (hypertension) Myocardial infarct Maternal Grandmother Diabetes Breast cancer Maternal Aunt Diabetes Social History Social History Household Members: Children Unable to assess alcohol history related to: Unknown Alcohol intake: former Patient Tobacco Use Status: Never used Tobacco Advance Directives: No Advance Directives Information Provided: No Do you have a plan to hurt others: No Plan Physical Exam 2 Vital Signs: Vital Signs: Last Vital Signs Temp 97.8 F 09/06/24 06:35 Pulse 76 09/06/24 06:35 Resp 12 09/06/24 06:35 BP 130/84 09/06/24 06:35 Pulse Ox 98 09/06/24 06:35 O2 Del Method Room Air 09/06/24 06:35 BMI result Body Mass Index 27.4 Vital signs have been reviewed and appear to be correct. Blood pressure elevated. Heart rate normal. Respiratory rate normal. Temperature normal. Oxygen saturation normal. Appearance: Alert. Oriented X3. No acute distress. Head: Normal external exam. Normocephalic. Atraumatic. No [place] signs noted. No raccoon eyes noted Eyes: PERRLA. EOMI. Conjunctiva and sclera normal. Eyelids normal. ENT: TM's Normal. Pharynx normal. Uvula midline. Moist mucous membranes. No trismus noted. No drooling noted. No muffled voice noted. Neck: Normal inspection. Neck supple. FROM. No adenopathy. Thyroid Normal. No meningeal signs. No neck mass noted. CVS: Normal heart rate and rhythm. Heart sound normal. No murmurs noted. Pulses normal throughout. Respiratory: No respiratory distress. Painless inspiration. Breath sounds normal. No wheezes/rales/rhonchi noted. Chest nontender. No accessory muscle usage noted or decreased air movement noted. Abdomen: Soft and nontender. Bowel sounds normal in all 4 quadrants. No distention noted. No organomegaly noted. No visible injury noted. Back: No CVA tenderness. Full range of motion noted. Skin: Skin warm and dry. Normal skin color. Normal skin turgor. No rashes/lesions/lacerations noted. Extremities: No lower extremity edema. Extremities exhibit normal range of motion. Extremities nontender. Neuro: Oriented X 3. Cranial nerve exam: II-XII are grossly intact No motor deficit. No sensory deficit. Reflexes normal. Course Reevaluation(s) Reevaluation #1: No tachycardia, no tachypnea, no hypoxia, unremarkable chest x-ray, unremarkable labs, patient had multiple previous similar presentations in the past, likely that patient's symptoms is anxiety triggered. Will reassure and discharge to follow-up with PCP and fruit stuffer. Bronchitis will start the patient on short-term prednisone and albuterol. Time: 05:41 Medical Decision Making Differential Diagnosis Differential Diagnoses: The differential diagnosis associated with the presentation includes ( Pneumonia, pneumothorax, hypoxia, severe anemia, electrolyte derangement, CHF, ACS.) Admission/Observation Consideration of admission/observation: Escalation of care including admission/observation considered Lab Data MDM Lab Attestation statement: I reviewed the patient's lab results. 09/06/24 02:31 09/06/24 02:31 Labs: Lab Results 09/06/24 09/06/24 Range/Units 02:31 02:32 WBC 5.8 (4.8-10.8) X10*3/uL RBC 4.47 (4.20-5.50) X10*6/uL Hgb 11.3 L (12.0-16.0) g/dl Hct 34.5 L (37.0-47.0) % MCV 77.2 L (80.0-98.0) fL MCH 25.3 L (27.0-33.0) pg MCHC 32.8 (31.0-35.0) g/dl RDW 16.5 H (11.0-16.0) % Plt Count 261 (160-400) X10*3/uL MPV 9.4 (9.4-12.3) fL Immature Gran % (Auto) 0.2 (0.0-0.4) % Neut % (Auto) 55.7 (45-73) % Lymph % (Auto) 35.7 (20-40) % [place] % (Auto) 5.5 (2-11) % Eos % (Auto) 2.2 (0-4) % Baso % (Auto) 0.7 (0-2) % Lymph # (Auto) 2.1 (1.2-4.9) X10*3/uL [place] # (Auto) 0.3 (0.1-1.2) X10*3/uL Eos # (Auto) 0.1 (0.0-0.4) X10*3/uL Baso # (Auto) 0.0 (0.0-0.2) X10*3/uL Abs Immat Gran (auto) 0.01 (0.00-0.03) X10*3/uL Absolute Neuts (auto) 3.2 (2.0-8.3) x10*3/uL Absolute Nucleated RBC 0.000 (0.0-0.012) X10*3/uL Nucleated RBC % (auto) 0.0 (0.0-0.2) /100WBC Smear Tech's Comments VERIFIED Sodium 137 (135-145) mmol/L Potassium 4.1 (3.3-5.1) mmol/L Chloride 108 (96-108) mmol/L Carbon Dioxide 19 L (22-29) mmol/L Anion Gap 14 (12-20) BUN 15 (9-16) mg/dL Creatinine 0.77 (0.5-1.4) mg/dL Estim Creat Clear Calc 91.6 Estimated GFR > 60 Random Glucose 193 H (60-115) mg/dL Calcium 9.1 (8.4-10.2) mg/dL Total Bilirubin 0.2 (0.0-1.0) mg/dL AST 26 (5-31) U/L ALT 31 (0-31) U/L Alkaline Phosphatase 81 (39-117) U/L Troponin I High Sens < 2.7 (<3.5-17.0) ng/L B-Natriuretic Peptide 16 (<100) pg/mL Total Protein 6.7 (6.5-8.0) g/dL Albumin 4.1 (3.5-5.0) g/dL S. pyogenes GrpA MYRON Negative (Negative) Independent Interpretation I performed an independent interpretation of an: Plain X-Ray ( Chest:*Central peribronchial wall thickening which may represent bronchitis and/or the chronic sequela of asthma. No focal pulmonary consolidation.) Radiology Impression Discussion of test interpretation with radiology: I have reviewed the radiologist's reading. Discharge Plan Discharge Clinical Impression: Chest pain, Acute dyspnea, Bronchitis Patient Disposition: Home, Self-Care Instructions: Dyspnea (ED) Prescriptions: No Action blood sugar diagnostic [FreeStyle Lite Strips] Strip 1 strip miscellaneous TID Qty: 100 11RF Trulicity 1.5 mg/0.5 mL pen injector 1.5 mg subcut QWEEK Qty: 2 0RF lancets [TRUEplus Lancets] 33 gauge misc 1 gauge miscellaneous TID Qty: 100 11RF Invokana 300 mg tablet 300 mg PO QAM Qty: 30 0RF sennosides [Natural Senna Laxative] 8.6 mg tablet 17.2 mg PO BEDTIME Qty: 180 1RF metronidazole 0.75 % (37.5mg/5 gram) gel 1 appful vaginal BEDTIME 5 Days Qty: 70 0RF pantoprazole 40 mg tablet,delayed release (DR/EC) 40 mg PO DAILY Qty: 90 2RF Rx Instructions: take one tablet half an hour before breakfast famotidine 40 mg tablet 40 mg PO BEDTIME Qty: 90 3RF docusate sodium 100 mg capsule 100 mg PO BEDTIME Qty: 90 3RF clotrimazole [Antifungal (clotrimazole)] 1 % cream 1 appl topical TID Qty: 45 0RF Rx Instructions: Until better benzonatate 200 mg capsule 200 mg PO TID PRN (Reason: cough) Qty: 10 0RF cyclobenzaprine 10 mg tablet 10 mg PO TID Qty: 10 0RF naproxen [Naprosyn] 500 mg tablet 500 mg PO BID Qty: 20 0RF nystatin 100,000 unit/mL suspension 1 ml PO DAILY Qty: 60 0RF Rx Instructions: swish and swallow albuterol sulfate 90 mcg/actuation aerosol powdr breath activated 2 inh inhalation Q4-6H PRN (Reason: shortness of breath or wheezing) Qty: 1 0RF doxycycline hyclate 100 mg capsule 100 mg PO BID 10 Days Qty: 20 0RF prednisone 20 mg tablet 40 mg PO DAILY 5 Days Qty: 10 0RF ketorolac 10 mg tablet 10 mg PO TID PRN (Reason: pain) 5 Days Qty: 15 0RF prednisone 20 mg tablet 20 mg PO DAILY 12 Days Qty: 26 0RF Rx Instructions: Take 3 tablets for 5 days THEN; Take 2 tablets for 4 days THEN; Take 1 tablet for 3 days lisinopril 5 mg tablet 5 mg PO DAILY atorvastatin 20 mg tablet 20 mg PO DAILY metformin 500 mg tablet 500 mg PO BID gabapentin 300 mg capsule 300 mg PO TID cyclobenzaprine 5 mg tablet 5 mg PO BEDTIME PRN Zyrtec 10 mg capsule 10 mg PO DAILY sertraline [Zoloft] 50 mg tablet 50 mg PO DAILY albuterol sulfate [ProAir HFA] 90 mcg/actuation HFA aerosol inhaler 2 puff inhalation Q4-6H PRN alum-mag hydroxide-simeth [Mylanta Maximum Strength] 400-400-40 mg/5 mL suspension 5 ml PO QID PRN bisacodyl [Dulcolax (bisacodyl)] 5 mg tablet,delayed release (DR/EC) 10 mg PO ONCE 1 Days Qty: 2 0RF Rx Instructions: take 2 tabs at noon the day before your colonoscopy polyethylene glycol 3350 [Miralax] 17 gram/dose powder 238 g PO ONCE Qty: 238 0RF Rx Instructions: As directed by gastroenterology department at [facility] medroxyprogesterone [Depo-Provera] 150 mg/mL suspension 150 mg IM Q12W Qty: 1 5RF Rx Instructions: Start in 1st couple of days of next menses. fluconazole 150 mg tablet 150 mg PO Q3D 0 Days Qty: 2 2RF Rx Instructions: may repeat second dose 72 hrs after first dose if symptoms persist miconazole nitrate [Miconazole-7] 2 % cream 1 appful vaginal BEDTIME 7 Days Qty: 45 3RF Referrals: Lissy Gracia MD [Primary Care Provider] - Print Language: Croatian
[2024-09-06 04:00] VITALS: PULSE 7
[2024-09-06 04:03] LABS: B Type Natriuretic Peptide 16 pg/mL (<100)
[2024-09-06 04:30] VITALS: BP 127/71; PULSE 78; RESP 17; TEMP 36.4; O2SAT 98
--- NOTE | 2024-09-06 05:59 | PC.NURSE ---
states we do not need to do repeat trop
--- NOTE | 2024-09-06 06:16 | PC.NURSE ---
pt upt to the bathroom, no assistance needed.
[2024-09-06 06:35] VITALS: BP 130/84; PULSE 76; RESP 12; TEMP 36.6; O2SAT 98
[2024-09-06 07:46] VITALS: BP 130/84; PULSE 76; RESP 12; TEMP 36.6; O2SAT 98
== END 2024-09-06 07:47 | disposition home or self-care (01) ==
PROVIDERS: Emergency Provider Emergency Medicine; PCP General Practice
DX: R07.9 Chest pain, unspecified (principal); J40 Bronchitis, not specified as acute or chronic; R06.00 Dyspnea, unspecified; R06.02 Shortness of breath; E11.9 Type 2 diabetes mellitus without complications; I10 Essential (primary) hypertension; E78.5 Hyperlipidemia, unspecified; Z79.899 Other long term (current) drug therapy; Z79.02 Long term (current) use of antithrombotics/antiplatelets; Z79.84 Long term (current) use of oral hypoglycemic drugs; Z79.85 Long-term (current) use of injectable non-insulin antidiabetic drugs
CPT/HCPCS: 71045; 80053; 83880; 84484; 85025; 87651; 93005; 99283; 99285

== ENCOUNTER 2024-09-16 02:04 | Emergency (ER) | payer MEDICAID, SELFPAY ==
[2024-09-16 02:11] VITALS: BP 119/63; PULSE 90; RESP 18; TEMP 36.4; O2SAT 97; BMI 27.8
[2024-09-16 02:23] VITALS: BP 158/82; PULSE 90; RESP 20; TEMP 36.3; O2SAT 98
--- NOTE | 2024-09-16 02:38 | ED.HA ---
HPI - Headache General Chief Complaint: Headache Stated Complaint: migraine Time Seen by Provider: 09/16/24 02:21 Source: patient Mode of arrival: ambulatory Limitations: no limitations History of Present Illness ED Provider: Dr. Sarah Celis HPI Narrative: Patient comes to the emergency room complaining of a migraine headache that started 5 days ago. Patient states that she has been trying [id number] medications including ibuprofen, Tylenol, Excedrin. Patient states that she has no relief. Patient has not vomiting for a few days intermittently due to the migraine headache. Patient complaining of photophobia. Patient states that she has been seen multiple times by Neurology but she has never been placed on a treatment for migraines. Related Data Home Medications ?Medication ?Instructions ?Recorded ?Confirmed albuterol sulfate 90 mcg/actuation 2 puff inhalation Q4-6H PRN 08/07/20 11/22/23 aerosol inhaler (ProAir HFA) atorvastatin 20 mg tablet 20 mg PO DAILY 08/07/20 11/22/23 cetirizine 10 mg capsule (Zyrtec) 10 mg PO DAILY 08/07/20 11/22/23 cyclobenzaprine 5 mg tablet 5 mg PO BEDTIME PRN 08/07/20 11/22/23 gabapentin 300 mg capsule 300 mg PO TID 08/07/20 11/22/23 lisinopril 5 mg tablet 5 mg PO DAILY 08/07/20 11/22/23 metformin 500 mg tablet 500 mg PO BID 08/07/20 11/22/23 sertraline 50 mg tablet (Zoloft) 50 mg PO DAILY 08/07/20 11/22/23 aluminum-mag hydroxide-simethicone 5 ml PO QID PRN 04/19/22 11/22/23 400 mg-400 mg-40 mg/5 mL oral susp (Mylanta Maximum Strength) Previous Rx's ?Medication ?Instructions ?Recorded clotrimazole 1 % topical cream 1 appl topical TID #45 grams 01/03/21 (Antifungal (clotrimazole)) blood sugar diagnostic (FreeStyle 1 strip miscellaneous TID for 02/17/21 Lite Strips) diabetes mellitus #100 strips dulaglutide 1.5 mg/0.5 mL 1.5 mg (0.5 mL) subcut QWEEK #2 mL 02/04/22 subcutaneous pen injector (Trulicity) lancets 33 gauge (TRUEplus Lancets) 1 gauge miscellaneous TID for 02/16/22 diabetes mellitus #100 ea benzonatate 200 mg capsule 200 mg PO TID PRN cough #10 caps 05/15/22 canagliflozin 300 mg tablet 300 mg PO QAM #30 tabs 07/13/22 (Invokana) bisacodyl 5 mg tablet,delayed 10 mg (2 x 5 mg) PO ONCE 1 day #2 09/21/22 release (Dulcolax (bisacodyl)) tabs polyethylene glycol 3350 17 238 g PO ONCE #238 grams 09/21/22 gram/dose oral powder (Miralax) sennosides 8.6 mg tablet (Natural 17.2 mg (2 x 8.6 mg) PO BEDTIME 12/29/22 Senna Laxative) constipation #180 tabs fluconazole 150 mg tablet 150 mg PO Q3D 2 doses #2 tabs 04/21/23 medroxyprogesterone 150 mg/mL 150 mg IM Q12W #1 mL 04/21/23 intramuscular suspension (Depo-Provera) metronidazole 0.75 % (37.5 mg/5 1 appful vaginal BEDTIME 5 days 05/03/23 gram) vaginal gel #70 grams pantoprazole 40 mg tablet,delayed 40 mg PO DAILY #90 tabs 09/12/23 release doxycycline hyclate 100 mg capsule 100 mg PO BID 10 days #20 caps 11/21/23 ketorolac 10 mg tablet 10 mg PO TID PRN pain 5 days #15 11/21/23 tabs prednisone 20 mg tablet 40 mg (2 x 20 mg) PO DAILY 5 days 11/21/23 #10 tabs miconazole nitrate 2 % vaginal 1 appful vaginal BEDTIME 7 days 11/22/23 cream (Miconazole-7) #45 grams cyclobenzaprine 10 mg tablet 10 mg PO TID #10 tabs 01/30/24 naproxen 500 mg tablet (Naprosyn) 500 mg PO BID #20 tabs 01/30/24 docusate sodium 100 mg capsule 100 mg PO BEDTIME #90 caps 04/04/24 famotidine 40 mg tablet 40 mg PO BEDTIME #90 tabs 04/04/24 prednisone 20 mg tablet 20 mg PO DAILY 12 days #26 tabs 08/11/24 albuterol sulfate 90 mcg/actuation 2 inh inhalation Q4-6H PRN 08/30/24 breath activated powder inhaler shortness of breath or wheezing #1 ea nystatin 100,000 unit/mL oral 1 ml PO DAILY #60 mL 08/30/24 suspension albuterol sulfate 90 mcg/actuation 1 inh inhalation QID PRN shortness 09/06/24 aerosol inhaler of breath or wheezing #8.5 grams prednisone 20 mg tablet 20 mg PO BID #10 tabs 09/06/24 ketorolac 10 mg tablet 10 mg PO Q8H #12 tabs 09/16/24 metoclopramide HCl 5 mg tablet 5 mg PO DAILY PRN nausea and 09/16/24 (Reglan) vomiting #12 tabs Allergies Allergy/AdvReac Type Severity Reaction Status Date / Time Seasonal Allergies Allergy Mild Runny Nose Verified 09/16/24 02:15 Review of Systems Review of Systems: Constitutional : No Weight loss, No Fever, No Chills, No Night Sweats, No Fatigue, No Malaise ENT/Mouth : No Hearing loss, No Ear Pain, No Nasal Congestion, No Sinus Pain, No Hoarseness, No sore throat, No Rhinorrhea, No Swallowing Difficulty Eyes: No Eye Pain, No Swelling, No Redness, No Foreign Body, No Discharge, No Vision Changes Cardiovascular : No Chest Pain, No SOB, No Dyspnea on Exertion, No Orthopnea, No Edema, No Palpitations Respiratory : No Cough, No Sputum, No Wheezing, No Smoke Exposure, No Dyspnea Gastrointestinal : No Nausea, No Vomiting, No Diarrhea, No Constipation, No abdominal Pain, No Hematochezia, No Melena Genitourinary : no irregular bleeding, No Dysuria, No Urinary Frequency, No Hematuria, No Urinary Incontinence, No Urgency, No Flank Pain, No Urinary Flow Changes, No Hesitancy Musculoskeletal : No joint pain, No Myalgias, No Joint Swelling Skin : No Skin Lesions, No rash Neuro : No Weakness, No Numbness, No Paresthesias, No Loss of Consciousness, No Dizziness, complaining of a migraine Headache that started 5 days ago Psych : No Anxiety/Panic, No Depression, No SI/HI/AH/VH, No Social Issues, Heme/Lymph: No Bruising, No Bleeding,No Lymphadenopathy Endocrine : No Polyuria, No Polydipsia, No Temperature Intolerance PMFSH Past Medical History Medical History Dysplasia of cervix, low grade (DEE 1) Plantar fasciitis Chronic migraine Iron deficiency Depression Hyperlipidemia LDL goal <100 Essential hypertension Type 2 diabetes mellitus with hyperglycemia Surgical History Hx of tubal ligation Family History Family History Father No problems noted. Mother HTN (hypertension) Maternal Grandfather HTN (hypertension) Myocardial infarct Maternal Grandmother Diabetes Breast cancer Maternal Aunt Diabetes Social History Social History Household Members: Children Unable to assess alcohol history related to: Unknown Alcohol intake: former Patient Tobacco Use Status: Never used Tobacco Smoked in Last 30 Days: No Use of substances other than those prescribed or required for medical reasons: No Advance Directives: No Advance Directives Information Provided: Yes Physical Exam Vital Signs: Vital Signs: Last Vital Signs Temp 97.4 F 09/16/24 03:42 Pulse 92 09/16/24 03:42 Resp 15 09/16/24 03:42 BP 138/78 09/16/24 03:42 Pulse Ox 92 09/16/24 03:42 O2 Del Method Room Air 09/16/24 03:42 BMI result Body Mass Index 27.8 Const: Other: Appearance: Alert. Oriented X3. No acute distress. Eyes: Pupils equal, round and reactive to light. Seems to have mild photophobia ENT: Pharynx normal. Neck: Normal inspection. Neck supple. No lymph nodes noted. No crepitus CVS: Normal heart rate and rhythm. Pulses normal. Normal S1 and S2 Respiratory: No respiratory distress. Breath sounds normal. No Wheezing. No rales Abdomen: Soft and nontender. No rigidity. No distention. Skin: Skin warm and dry. Normal skin color. Normal skin turgor. Extremities: No lower extremity edema. No Lacerations. No Rash Neuro: Oriented X 3. No motor deficit. No sensory deficit. Moving all extremities. No slurred speech. CN 2 through 12 grossly intact Psych: calm, cooperative, normal affect Course Course Course Narrative: Patient receiving IV treatment with fluids, ketorolac, diphenhydramine and metoclopramide Medications Administered Discontinued Medications Generic Name Dose Route Start Last Admin Trade Name Esperanza PRN Reason Stop Dose Admin Diphenhydramine HCl 25 mg 09/16/24 02:37 09/16/24 02:45 Diphenhydramine Hcl 50 Mg/Ml Vial IVPUSH 09/16/24 02:38 25 mg ONCE ONE Administration Sodium Chloride 1,000 mls @ 999 mls/hr 09/16/24 02:37 09/16/24 03:42 Ns IVCONT 09/16/24 03:37 Infused .Q1H1M ONE Infusion Ketorolac Tromethamine 30 mg 09/16/24 02:37 09/16/24 02:45 Ketorolac Tromethamine 30 Mg/Ml Vial IVPUSH 09/16/24 02:38 30 mg ONCE ONE Administration Metoclopramide HCl 10 mg 09/16/24 02:37 09/16/24 02:45 Metoclopramide Hcl 10 Mg/2 Ml Vial IVPUSH 09/16/24 02:38 10 mg ONCE ONE Administration Medical Decision Making Medical Decision Making MDM Narrative: Patient states that her migraine headache nearly resolved and feels much better. Patient has no photophobia, no headache, no nausea. Patient talking on the phone, patient states that she feels back to normal. Differential Diagnosis Differential Diagnoses: The differential diagnosis associated with the presentation includes (Tension headache, migraine headache) Discharge Plan Discharge Clinical Impression: Migraine Patient Disposition: Home, Self-Care Instructions: Migraine Headache (ED) Additional Instructions: Please follow-up with your primary care physician tomorrow. If you have any worsening or new symptoms, please return to the emergency room or call 911 Prescriptions: New ketorolac 10 mg tablet 10 mg PO Q8H Qty: 12 0RF Rx Instructions: Do not take with Naprosyn, ibuprofen or any NSAIDs, only Tylenol if needed metoclopramide HCl [Reglan] 5 mg tablet 5 mg PO DAILY PRN (Reason: nausea and vomiting) Qty: 12 0RF Rx Instructions: Take together with ketorolac p.r.n. migraines No Action blood sugar diagnostic [FreeStyle Lite Strips] Strip 1 strip miscellaneous TID Qty: 100 11RF Trulicity 1.5 mg/0.5 mL pen injector 1.5 mg subcut QWEEK Qty: 2 0RF lancets [TRUEplus Lancets] 33 gauge misc 1 gauge miscellaneous TID Qty: 100 11RF Invokana 300 mg tablet 300 mg PO QAM Qty: 30 0RF sennosides [Natural Senna Laxative] 8.6 mg tablet 17.2 mg PO BEDTIME Qty: 180 1RF metronidazole 0.75 % (37.5mg/5 gram) gel 1 appful vaginal BEDTIME 5 Days Qty: 70 0RF pantoprazole 40 mg tablet,delayed release (DR/EC) 40 mg PO DAILY Qty: 90 2RF Rx Instructions: take one tablet half an hour before breakfast famotidine 40 mg tablet 40 mg PO BEDTIME Qty: 90 3RF docusate sodium 100 mg capsule 100 mg PO BEDTIME Qty: 90 3RF clotrimazole [Antifungal (clotrimazole)] 1 % cream 1 appl topical TID Qty: 45 0RF Rx Instructions: Until better benzonatate 200 mg capsule 200 mg PO TID PRN (Reason: cough) Qty: 10 0RF cyclobenzaprine 10 mg tablet 10 mg PO TID Qty: 10 0RF naproxen [Naprosyn] 500 mg tablet 500 mg PO BID Qty: 20 0RF nystatin 100,000 unit/mL suspension 1 ml PO DAILY Qty: 60 0RF Rx Instructions: swish and swallow albuterol sulfate 90 mcg/actuation aerosol powdr breath activated 2 inh inhalation Q4-6H PRN (Reason: shortness of breath or wheezing) Qty: 1 0RF doxycycline hyclate 100 mg capsule 100 mg PO BID 10 Days Qty: 20 0RF prednisone 20 mg tablet 40 mg PO DAILY 5 Days Qty: 10 0RF ketorolac 10 mg tablet 10 mg PO TID PRN (Reason: pain) 5 Days Qty: 15 0RF prednisone 20 mg tablet 20 mg PO DAILY 12 Days Qty: 26 0RF Rx Instructions: Take 3 tablets for 5 days THEN; Take 2 tablets for 4 days THEN; Take 1 tablet for 3 days albuterol sulfate 90 mcg/actuation HFA aerosol inhaler 1 inh inhalation QID PRN (Reason: shortness of breath or wheezing) Qty: 8.5 0RF prednisone 20 mg tablet 20 mg PO BID Qty: 10 0RF lisinopril 5 mg tablet 5 mg PO DAILY atorvastatin 20 mg tablet 20 mg PO DAILY metformin 500 mg tablet 500 mg PO BID gabapentin 300 mg capsule 300 mg PO TID cyclobenzaprine 5 mg tablet 5 mg PO BEDTIME PRN Zyrtec 10 mg capsule 10 mg PO DAILY sertraline [Zoloft] 50 mg tablet 50 mg PO DAILY albuterol sulfate [ProAir HFA] 90 mcg/actuation HFA aerosol inhaler 2 puff inhalation Q4-6H PRN alum-mag hydroxide-simeth [Mylanta Maximum Strength] 400-400-40 mg/5 mL suspension 5 ml PO QID PRN bisacodyl [Dulcolax (bisacodyl)] 5 mg tablet,delayed release (DR/EC) 10 mg PO ONCE 1 Days Qty: 2 0RF Rx Instructions: take 2 tabs at noon the day before your colonoscopy polyethylene glycol 3350 [Miralax] 17 gram/dose powder 238 g PO ONCE Qty: 238 0RF Rx Instructions: As directed by gastroenterology department at [facility] medroxyprogesterone [Depo-Provera] 150 mg/mL suspension 150 mg IM Q12W Qty: 1 5RF Rx Instructions: Start in 1st couple of days of next menses. fluconazole 150 mg tablet 150 mg PO Q3D 0 Days Qty: 2 2RF Rx Instructions: may repeat second dose 72 hrs after first dose if symptoms persist miconazole nitrate [Miconazole-7] 2 % cream 1 appful vaginal BEDTIME 7 Days Qty: 45 3RF Print Language: Tunisian
[2024-09-16] MEDS: 0.9 % Sodium Chloride 1,000 ML 999 ML IVCONT (02:44)
[2024-09-16] MEDS: diphenhydrAMINE HCL 50 MG/ML VIAL 25 MG IVPUSH (02:45)
[2024-09-16] MEDS: Metoclopramide HCl 10 MG/2 ML VIAL IVPUSH (02:45)
[2024-09-16] MEDS: Ketorolac Tromethamine 30 MG/ML VIAL IVPUSH (02:45)
[2024-09-16 03:42] VITALS: BP 138/78; PULSE 92; RESP 15; TEMP 36.3; O2SAT 92
[2024-09-16 04:21] VITALS: BP 138/78; PULSE 92; RESP 16; TEMP 36.3; O2SAT 92
== END 2024-09-16 04:25 | disposition home or self-care (01) ==
PROVIDERS: Emergency Provider Emergency Medicine
DX: G43.909 Migraine, unspecified, not intractable, without status migrainosus (principal); E11.9 Type 2 diabetes mellitus without complications; I10 Essential (primary) hypertension; E78.5 Hyperlipidemia, unspecified; J45.909 Unspecified asthma, uncomplicated
CPT/HCPCS: 96361; 96374; 96375; 99284; 99285; J1200; J1885; J2765

== ENCOUNTER → 2024-09-19 09:38 | Outpatient (REF) | payer MEDICAID, SELFPAY ==
--- NOTE | 2024-09-19 09:41 | CA_ITS ---
Transthoracic Echocardiogram Patient (Last, First, Middle): Irene Garcia, Gender: Female Date of : 1975 Age: 48 Procedure Date: 09/19/2024 Procedure Type: Transthoracic Echocardiogram Location: OP Height: 167.64 cm Weight: 78.02 kg BSA: 1.88 m2 Heart Rate: bpm BP: 120 / 88 mmHg Sample Coordinator: GRANT Referring MD: Lissy Gracia MD Clinical Rehabilitation Specialist: Jordy Mcfarland MD Symptoms: R06.01 ORTHOPNEA Study Quality: Adequate ECG Rhythm: Sinus Conclusions: - Essentially normal study Findings Left Ventricle Normal left ventricular size, thickness, and systolic function. The visually estimated ejection fraction is between 60-65%. Normal left ventricular filling pressures. Right Ventricle Normal right ventricular cavity size and systolic function. Atria Both atria are normal in size. There is no evidence of interatrial shunt. Aortic Valve Normal aortic valve structure and function. There is no aortic valve stenosis. There is no aortic valve regurgitation. Mitral Valve Normal mitral valve structure and function. There is trace mitral valve regurgitation. There is no mitral valve stenosis. Pulmonic Valve The pulmonic valve is likely normal. Tricuspid Valve Likely normal tricuspid valve structure and function. There is trace tricuspid valve regurgitation. The right ventricular systolic pressure is normal. The right ventricular systolic pressure is 16 mmHg. Normal right atrial pressure. There is no evidence of pulmonary hypertension. Great Vessels All visible segments of the aorta are normal in size. The pulmonary artery was not well visualized. Venous The inferior vena cava is normal in size and collapses greater than 50% with inspiration. Pericardium/Pleural There is no evidence of pericardial effusion. Prior Study Comparison no previous study in the last 5 years for comparison Measurements 2D Linear Measurements IVSd: 0.94 0.6-0.9/0.6-1.0 cm LVIDd: 4.21 3.9-5.3/4.2-5.9 cm LVIDd Index: 2.24 2.4-3.2/2.2-3.1 cm/m2 LVIDs: 2.66 2.0-3.6 cm LVPWd: 0.80 0.7-1.1 cm LA Diam: 3.20 2.7-3.8/3.0-4.0 cm LAIDs Index: 1.70 1.5-2.3 cm/m2 LV Mass: 142.13 67-162/88-224 g LV Mass Index: 75.60 43-95/49-115 g/m2 LVOT Diam: 2.00 3.0+(-)1.3 cm 2D Systolic Function EF 4C: 60.80 >55% EF 2C: 63.50 >55% EF BiP: 61.10 >55% Mitral Valve MV Pk E: 0.89 MV PK A: 1.02 MV Decel Time: 252.00 E/A: 0.90 E'Lateral: 10.40 E'Medial: 8.16 E/E' Med: 10.90 E/E' Lat: 8.60 PHT: 74.00 MVA PHT: 2.97 Decel [place]: 3.53 Aortic Valve AoV Pk Eleazar: 1.72 AoV Mn Eleazar: 1.20 AoV VTI: 0.35 AoV Pk Grad: 12.00 Aov Mn Grad: 6.00 JESUS Cont.VTI: 2.50 LVOT LVOT Pk Eleazar: 1.54 LVOT Mn Eleazar: 0.96 LVOT VTI: 0.28 LVOT Pk Grad: 9.00 LVOT Mn Grad: 4.00 LVOT Diam: 2.00 LVOT Area: 3.14 Diastolic Function MV Pk E: 0.89 MV Pk A: 1.02 E/A: 0.90 E'Medial: 8.16 E/E' Med: 10.90 E' Laterial: 10.40 E/E' Lat: 8.60 Right Ventricle TAPSE (mm): 25.60 TVS' Eleazar: 14.00 Tricuspid Valve TR Pk Eleazar: 1.79 TR Pk Grad: 13.00 RA Press: 3.00 RVSP: 16.00 Great Vessels Aorta Sinus of Valsalva: 2.97 2.0-3.[address] [place]: 2.54 1.7-3.4 cm Ao Asc: 3.20 2.1-3.4 cm Updated in Other Vendor System with Status of Final Jordy Mcfarland MD electronically signed on 09/19/2024 2:10:30 PM with status of Final
== END ==
LOC: HO.CARD 09:38
PROVIDERS: PCP General Practice; Visit Provider General Practice
DX: R06.01 Orthopnea (principal)
CPT/HCPCS: 93306

== ENCOUNTER → 2024-09-19 09:41 | Outpatient (BNV) | payer MEDICAID, SELFPAY | PROVIDERS: PCP General Practice; Visit Provider Internal Medicine Cardiovascular Disease | DX: R06.01 Orthopnea (principal) | CPT/HCPCS: 93306 ==

== ENCOUNTER 2024-09-23 09:22 | Outpatient (AMB) | payer MEDICAID, SELFPAY ==
--- NOTE | 2024-09-23 08:43 | A.OFFVIS_ITS ---
Vital Signs 09/23/24 09:27 Height 5 ft 6 in Weight 176 lb 5.917 oz BMI 28.5 BP 142/88 H Blood Pressure Location Rt brachial Position Sitting Pulse 88 Pulse Source Pulse Oximeter Pulse Oximetry (%) 99 Oxygen Delivery Method Room Air Intake Visit Reasons: moderate asthma Allergies Seasonal Allergies Allergy (Mild, Verified 09/23/24 09:31) Runny Nose HPI HPI moderate asthma: Details: Irene is a pleasant 48 year old female, never smoker, with underlying asthma, HTN, DMII, GERD, allergic rhinitis and Depression. She was referred by PCP for pulmonary evaluation. She reports worsening asthma control over the last four months, requiring multiple ED visits. 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 She has been suboptimally controlled on Asmanex, using albuterol MDI/neb frequently. She continues to report wheezing, chest tightness, dry cough and dyspnea on exertion. She also notes orthopnea and intermittent BLE edema. Prior echo LVEF 60-65%, RVSP 18. She has an upcoming appt with cardiology 11/2023. Prior EKG unremarkable. CXR revealed central peribronchial wall thickening which may represent bronchitis and/or the chronic sequela of asthma. She denies prior h/o asthma. She reports seasonal allergies, using zyrtec with moderate effect. Denies recent allergy testing. She denies any pertinent family history. [facility] Medical History Dysplasia of cervix, low grade (DEE 1) Plantar fasciitis Chronic migraine Iron deficiency Depression Hyperlipidemia LDL goal <100 Essential hypertension Type 2 diabetes mellitus with hyperglycemia Surgical History Hx of tubal ligation Family History Father No problems noted. Mother HTN (hypertension) Maternal Grandfather HTN (hypertension) Myocardial infarct Maternal Grandmother Diabetes Breast cancer Maternal Aunt Diabetes Social History Household Members: Children Unable to assess alcohol history related to: Unknown Alcohol intake: former Patient Tobacco Use Status: Never used Tobacco Female Reproductive History Menstrual Age of Menarche: 10 Review of Systems Const Denies chills, Denies excessive sweating, Denies fever(s), Denies headache(s) and Denies night sweats Eyes Denies dry eyes, Denies irritation and Denies itchy eyes ENT Reports Normal hearing present, Denies headache(s), Denies nasal congestion, Denies nasal discharge and Denies sore throat Card Denies chest pain at rest, Denies chest pain with activity, Denies claudication and Denies paroxysmal nocturnal dyspnea Resp Denies chest congestion, Denies excessive phlegm production, Denies pain on inspiration, Denies pain with cough and Denies stridor Musc Denies myalgias Neuro Reports Normal hearing present and Denies headache(s) Endo Denies excessive sweating Bear/Lymph Denies lymphadenopathy Aller/Immun Denies itchy eyes and Denies seasonal rhinorrhea Physical Exam Vital Signs: Last Vital Signs Pulse 88 09/23/24 09:27 BP 142/88 H 09/23/24 09:27 Pulse Ox 99 09/23/24 09:27 Oxygen Delivery Method Room Air 09/23/24 09:27 BMI result Body Mass Index 28.5 Const General: cooperative, healthy appearing, comfortable, no acute distress, well developed and alert Nutritional Appearance: obese Orientation/consciousness: patient oriented x3 Limitations: no limitations HEENT Head: Yes normal to inspection, Yes normocephalic and Yes atraumatic Ears: hearing grossly normal bilaterally and external ears normal Eyes General: appearance normal, both eyes and all related structures Eyelids: Yes eyelids normal Sclerae: sclerae normal EOM: EOMs intact bilaterally Neck Neck: Yes normal visual inspection and Yes no lymphadenopathy Lymphatic: no lymphadenopathy noted Chest Chest palpation & inspection: normal inspection of the chest Resp Effort & Inspection: normal respiratory effort, able to speak in complete sentences, no audible wheezes, no cough, no stridor, not tachypneic, no tripod positioning and no use of accessory muscles Auscultation: clear to auscultation bilaterally Cardio Jugular venous distension: no JVD Rate: regular rate Rhythm: regular rhythm Skin Other: warm, dry General skin exam: no rashes or lesions noted Neuro General: patient oriented x3 Cranial nerves: Yes Normal hearing present Cognition (Neuro): normal cognition Gait exam (Neuro): Normal gait present Extrem Other: trace pitting BLE edema Psych Appearance: grossly normal and well kempt Speech and movement: Normal speech and movement present and Clear speech present Affect: normal affect Attitude: cooperative Thought process: Normal thought process present Thought content: Normal thought content present Insight: Good insight present (Psych) Judgement: Good judgement present (Psych) Results Reviewed Results Reviewed: [address] [address] XRay Report Signed Patient: Irene Garcia MR#: [id number] : 1975 Acct:[id number] Age/Sex: 48 / F ADM Date: 09/06/24 Loc: HO.ED Attending Dr: Ordering Physician: Petty Keys MD Date of Service: 09/06/24 Procedure(s): XR chest 1V Accession Number(s): [id number] cc: Petty Keys MD; [place] Gracia EXAMINATION: XR CHEST CLINICAL INFORMATION: SOB COMPARISON: Chest radiograph 08/30/2024 TECHNIQUE: Frontal view of the chest was obtained. FINDINGS: Normal appearance of the cardiomediastinal structures. No effusions or pneumothoraces. No focal pulmonary consolidation. Central peribronchial wall thickening. XR/XR chest 1V IMPRESSION: *Central peribronchial wall thickening which may represent bronchitis and/or the chronic sequela of asthma. No focal pulmonary consolidation. Electronically signed by: Enmanuel Briggs MD 09/06/2024 06:38 AM EST Dictated By: Enmanuel Briggs MD Signed By: <Electronically signed by Enmanuel Briggs MD in OV> 09/06/2438 DD/ 9 TD/TT: 09/06/24 0534 [employer]: EF Assessment & Plan Assessment & Plan (1) Asthma: Code(s): J45.909 - Unspecified asthma, uncomplicated Category: Medical (2) Environmental allergies: Code(s): Z91.09 - Other allergy status, other than to drugs and biological substances Category: Medical Plan Irene's symptoms are likely related to underlying asthma however underlying cardiac etiologies can not be ruled out at this time. Will send patient for PFT and RAST. Will also switch Asmanex to Breo. Discussed importance of good oral hygiene to prevent thrush. All questions were answered and patient is in agreement of plan. Will follow up in 6-8 weeks or sooner if needed. Orders: Orders Resp Allergy Profile Region I Today Z. - Other allergy status, other than to drugs and biological substances Complete Blood Count Auto Diff Today Z. - Other allergy status, other than to drugs and biological substances Immunoglobulin E Today Z. - Other allergy status, other than to drugs and biological substances PFT pulmonary function test Today J45.909 - Unspecified asthma, uncomplicated Medications: New fluticasone furoate-vilanterol 200-25 mcg/dose (Breo Ellipta) 1 inh inhalation DAILY 60 ea 6RF Coding Level of Care Code New Pt Level 4 (54431) Diagnoses Asthma J45.909 Environmental allergies Z.
[2024-09-23 09:27] VITALS: BP 142/88; PULSE 88; O2SAT 99; BMI 28.5
== END 2024-09-23 09:59 | disposition home or self-care (01) ==
PROVIDERS: PCP General Practice; Visit Provider Nurse Practitioner Family
DX: J45.909 Unspecified asthma, uncomplicated (principal); Z91.09 Other allergy status, other than to drugs and biological substances
CPT/HCPCS: 99204

== ENCOUNTER 2024-09-23 09:22 | Outpatient (REF) | payer MEDICAID, SELFPAY ==
[2024-09-23 14:28] LABS: MANUAL DIFF FLAG NO
[2024-09-23 15:49] LABS: Basophils Percent Auto 0.3 % (0-2); Eosinophils Absolute Auto 0.1 X10*3/uL (0.0-0.4); Eosinophils Percent Auto 0.9 % (0-4); Hematocrit 38.1 % (37.0-47.0); Imm Gran Abs Auto 0.03 X10*3/uL (0.00-0.03); Imm Gran Pct Auto 0.5 % (0.0-0.4); Lymphocytes Absolute Auto 1.6 X10*3/uL (1.2-4.9); Lymphocytes Percent Auto 24.7 % (20-40); Mean Corpuscular HGB Conc 31.5 g/dl (31.0-35.0); Mean Corpuscular Hemoglobin 24.4 pg (27.0-33.0); Mean Corpuscular Volume 77.6 fL (80.0-98.0); Mean Platelet Volume 10.4 fL (9.4-12.3); Monocytes Absolute Auto 0.3 X10*3/uL (0.1-1.2); Neutrophils Absolute Auto 4.4 x10*3/uL (2.0-8.3); Neutrophils Percent Auto 68.6 % (45-73); Platelet Count 356 X10*3/uL (160-400); Red Blood Count 4.91 X10*6/uL (4.20-5.50); Red Cell Distribution Width 16.5 % (11.0-16.0); White Blood Count 6.4 X10*3/uL (4.8-10.8)
[2024-09-25 22:54] LABS: Class Alternaria alternata 0; Class Aspergillus fumigatus 0; Class Bermuda Grass 0; Class Birch 0; Class Cat Dander 0; Class Cladosporium herbarum 0; Class Cockroach 0; Class Common Ragweed 0; Class Cottonwood 0; Class Derm. pterony 0; Class Dermatophagoides farinae 0; Class Dog Dander 0; Class Elm 0; Class Maple Box Elder 0; Class Mountain Cedar 0; Class Mouse Urine Protein 0; Class Mugwort 0; Class Oak 0; Class Penicillium crysogenum 0; Class Rough Pigweed 0; Class Sheep Sorrel 0; Class Sycamore 0; Class Timothy Grass 0; Class Walnut Tree 0; Class White Ash 0; Class White Mulberry 0; D001 IgE D pteronyssinus <0.10 kU/L; D002 - IgE D farinae <0.10 kU/L; E001 - IgE Cat Dander <0.10 kU/L; E005 - IgE Dog Dander <0.10 kU/L; E072-IgE Mouse Urine <0.10 kU/L; G002 IgE Bermuda Grass <0.10 kU/L; G006 - IgE Timothy Grass <0.10 kU/L; I006-IgE Cockroach, German <0.10 kU/L; Immunoglobulin E 3 kU/L (<OR=114); M001 IgE Penicillium chrysogen <0.10 kU/L; M002 - IgE Cladosporium herbar <0.10 kU/L; M003 - IgE Aspergillus fumigat <0.10 kU/L; M006 - IgE Alternaria alternat <0.10 kU/L; T001 IgE Maple/Box Elder <0.10 kU/L; T003 IgE Common Silver Birch <0.10 kU/L; T006 - IgE Cedar, Mountain <0.10 kU/L; T007 - IgE Oak, White <0.10 kU/L; T008 IgE Elm, American <0.10 kU/L; T010 - IgE Walnut <0.10 kU/L; T011 - IgE Maple Leaf Sycamore <0.10 kU/L; T014 - IgE Cottonwood <0.10 kU/L; T015 - IgE Ash, White <0.10 kU/L; T070 - IgE White Mulberry <0.10 kU/L; W001 - IgE Ragweed, Short <0.10 kU/L; W006 - IgE Mugwort <0.10 kU/L; W014 IgE Pigweed, Common <0.10 kU/L; W018 IgE Sheep Sorrel <0.10 kU/L
== END 2024-09-23 09:23 | disposition home or self-care (01) ==
LOC: HO.LAB 09:22
PROVIDERS: PCP General Practice; Visit Provider Nurse Practitioner Family
DX: Z91.09 Other allergy status, other than to drugs and biological substances (principal); R06.02 Shortness of breath; J45.909 Unspecified asthma, uncomplicated
CPT/HCPCS: 36415; 82785; 85025; 86003; 99212

== ENCOUNTER 2024-10-22 15:46 | Outpatient (REF) | payer MEDICAID, SELFPAY ==
[2024-10-22 18:22] LABS: Estimated Average Glucose 203 mg/dL; Hemoglobin A1C 217.5323 umol/L; Hemoglobin A1c % 8.7 % (<6.0); Total Hemoglobin (HGBA1C) 3016.3263 umol/L
[2024-10-22 18:26] LABS: Alanine Aminotransferase 26 U/L (0-31); Albumin Level 4.3 g/dL (3.5-5.0); Alkaline Phosphatase 90 U/L (39-117); Anion Gap 9 (12-20); Aspartate Amino Transferase 21 U/L (5-31); Bilirubin Total 0.2 mg/dL (0.0-1.0); Blood Urea Nitrogen 15 mg/dL (9-16); Carbon Dioxide 23 mmol/L (22-29); Chloride 109 mmol/L (96-108); Estimated Glomerular Filt Rate > 60; Glucose Random 182 mg/dL (60-115); Potassium 3.9 mmol/L (3.3-5.1); Sodium 137 mmol/L (135-145); Total Protein 7.2 g/dL (6.5-8.0)
[2024-10-23 19:48] LABS: Immunoglobulin E 3 kU/L (<OR=114)
== END 2024-10-22 15:47 | disposition home or self-care (01) ==
LOC: HO.HHCL 15:46
PROVIDERS: Nurse Practitioner Family; Visit Provider General Practice
DX: E11.9 Type 2 diabetes mellitus without complications (principal); Z91.09 Other allergy status, other than to drugs and biological substances
CPT/HCPCS: 36415; 80053; 82785; 83036

== ENCOUNTER → 2024-10-23 21:56 | Outpatient (BNV) | payer MEDICAID, SELFPAY | PROVIDERS: Emergency Provider Emergency Medicine; Visit Provider Internal Medicine | DX: R07.9 Chest pain, unspecified (principal); R94.31 Abnormal electrocardiogram [ECG] [EKG] | CPT/HCPCS: 93010 ==

== ENCOUNTER → 2024-10-23 22:10 | Outpatient (BNV) | payer MEDICAID, SELFPAY | PROVIDERS: Visit Provider Specialist | DX: R07.9 Chest pain, unspecified (principal) | CPT/HCPCS: 71046 ==

== ENCOUNTER 2024-10-28 12:04 | Outpatient (REF) | payer MEDICAID, SELFPAY ==
[2024-10-28 13:11] LABS: MANUAL DIFF FLAG NO
[2024-10-28 13:17] LABS: Basophils Percent Auto 0.5 % (0-2); Eosinophils Absolute Auto 0.1 X10*3/uL (0.0-0.4); Eosinophils Percent Auto 1.2 % (0-4); Hematocrit 37.4 % (37.0-47.0); Hemoglobin 12.1 g/dl (12.0-16.0); Imm Gran Abs Auto 0.02 X10*3/uL (0.00-0.03); Imm Gran Pct Auto 0.3 % (0.0-0.4); Lymphocytes Absolute Auto 2.1 X10*3/uL (1.2-4.9); Lymphocytes Percent Auto 34.7 % (20-40); Mean Corpuscular HGB Conc 32.4 g/dl (31.0-35.0); Mean Corpuscular Hemoglobin 24.9 pg (27.0-33.0); Mean Corpuscular Volume 77.1 fL (80.0-98.0); Mean Platelet Volume 9.6 fL (9.4-12.3); Monocytes Absolute Auto 0.4 X10*3/uL (0.1-1.2); Monocytes Percent Auto 7.1 % (2-11); Neutrophils Absolute Auto 3.4 x10*3/uL (2.0-8.3); Neutrophils Percent Auto 56.2 % (45-73); Platelet Count 369 X10*3/uL (160-400); Red Blood Count 4.85 X10*6/uL (4.20-5.50); Red Cell Distribution Width 15.3 % (11.0-16.0); White Blood Count 6.1 X10*3/uL (4.8-10.8)
[2024-10-28 13:21] LABS: INTERNATIONAL NORM RATIO 0.9 (0.9-1.1); Prothrombin Time 10.8 SEC (10.9-12.4)
== END 2024-10-28 12:05 | disposition home or self-care (01) ==
LOC: HO.HHCL 12:04
PROVIDERS: Visit Provider General Practice
DX: H92.22 Otorrhagia, left ear (principal)
CPT/HCPCS: 36415; 85025; 85610

== ENCOUNTER 2024-10-30 01:00 | Emergency (ER) | payer MEDICAID, SELFPAY ==
--- NOTE | ~2024-10-30 | XR_ITS ---
CLINICAL HISTORY: cough, lung pain 2 view chest x-ray Comparison: CR - XR CHEST 2V - 10/23/24 22:19 EST Findings: Lungs are well inflated. Mediastinal contours, cardiac silhouette, and vasculature are within normal limits. Lungs are clear. No pleural effusion. IMPRESSION: 1. No acute findings. This document has been electronically signed by: Cristian Rodrigez MD on 10/30/2024 01:42:01
[2024-10-30 01:02] VITALS: BP 148/85; PULSE 90; RESP 16; TEMP 37.4; O2SAT 98; BMI 26.1
--- OUTSIDE RECORDS SUMMARY | 2024-10-30 01:05 | XMS_ITS | Continuity of Care Document ---
Author Organization [facility] Address [address] [place] [address] Phone Care Team Providers Care Die Barber Name Role Phone Madatovian, DO DO, Harut Unavailable Unavail able Allergies, Adverse Reactions, Alerts Substance Reaction Status Criticality No Known Allergies Active No Inform ation Medications Medication Instructions Dosage Effective Dates (start - stop) Status Comments METFORMIN HCL 500 MG TABLET TAKE 1 TABLET BY MOUTH TWICE A DAY WITH MEALS - Active Basaglobi Snow U-100 Insulin 100 unit/mL (3 mL) subcutaneous inject 10 unit by subcutaneous route every bedtime as per insulin protocol 10 unit - Active blood-glucose meter check blood glucose levels three times daily before meals - Active Test N'Go Test strips apply 1 not specified by [facility].(non-drug; combo) route 3 times every day 1 not specified - Active lancets check blood glucose levels three times daily before meals - Active pen needle, diabetic 32 gauge x 1/4 inject insulin dose as instructed daily - Active alcohol swabs use to clean area prior to checking blood glucose levels three times daily and injecting insulin once daily - Active atorvastatin 20 mg tablet take 1 tablet by oral route every day 20 MG - Active Procedures Procedure Date OV 15 MIN M/F BLOOD COLLECTIO OV 20 MIN M/F Advance Directives Directive Yes / No Effective Date File Name No Information Encounters Encounter Description Practice Location Reason(s) For Visit Diagnoses Date Provider Providers Copied on Encounter [facility], [address], [place], [place], [id number], [place] tel:[phone] [place] No Information 1 Madatovian, DO Harut. [address] [facility] [address], [place], [address]. tel:[phone] [facility], [address], [place], [place], [id number], [place] tel:[phone] [place] [place] No Information Dec-0 - 0 Madatovian, DO Harut. [address] [facility] [address], [place], [address]. tel:[phone] OV 15 MIN M/F [facility], [address], [place], [place], [id number], [place] tel:[phone] [place] Lab results (chief complaint) Insulin dependent diabetes mellitusLong term (current) use of insulinHyperlip idemia, unspecified hyperlipidemia type Madatovian, DO Harut. [address], [address]. tel:[phone] [facility], [address], [place], [place], [id number], [place] tel:[phone] [place] Blood work only (chief complaint) No Information No Information OV 20 MIN M/F [facility], [address], [place], [place], [id number], [place] tel:[phone] [place] blood test (chief complaint) weight loss (chief complaint) Encntr for general adult medical exam w/o abnormal findingsWeight lossHistory of uterine fibroid Madatovian, DO Harut. [address] [facility] [address], [place], [address]. tel:[phone] Family History Family Member Type Diagnosis Age At Onset No Information Payers Payer name Insurance type Covered libertarian ID Authoriza tion(s) No Information Social History Type Description Quantity Date Captured Comments Sex Female Smoking Status No Information Chief Complaint And Reason For Visit No Information Reason For Referral Reason For Referral No Information Plan Of Treatment Date Type Action Status Goal Pneumococcal vaccine. Due on due Goal Influenza vaccine. Due on due Goal Hemoglobin A1C. Due on due Goal Foot exam. Due on due Goal GFR. Due on due Goal Dental exam. Due on due Goal Urine microalbumin. Due on due Goal Dilated eye exam. Due on May due Goal Lipid panel. Due on due Goal Complete Physica l Exam. Due on due Goal Tdap. Due on due Goal Pap/HPV testing. Due on due Goal Depression screening. Due on due Goal Complete Physica l Exam. Due on due Goal Influenza vaccine. Due on due Goal Tdap. Due on due Goal Lipid panel. Due on due Goal Pap/HPV testing. Due on due Goal Depression screening. Due on due Goal Lipid panel. Due on due Goal Influenza vaccine. Due on due Goal Depression screening. Due on due Goal Complete Physica l Exam. Due on due Goal Pap/HPV testing. Due on due Goal Tdap. Due on due Future Order: Lab Order CBC (INC LUDES DIFF/PLT) (0960), Ordered on: Ordered Future Order: Lab Order COMPREHE NSIVE METABOLIC PANEL (87349), Ordered on: Ordered Future Order: Lab Order HEMOGLOB IN A1C (496), Ordered on: Ordered Future Order: Lab Order LIPID PA BECCA ([id number]), Ordered on: Ordered Future Order: Lab Order THYROID PANEL WITH TSH, 3RD GENERATION ([id number]), Ordered on: Ordered Future Order: Lab Order URINALYS IS, COMPLETE ([id number]), Ordered on: Ordered Future Order: Lab Order C-REACTI VE PROTEIN ([id number]), Ordered on: Ordered Future Order: Lab Order SED RATE BY MODIFIED WESTERGREN (069), Ordered on: Ordered Future Order: Lab Order ALPHA FE TOPROTEIN, TUMOR MARKER (237), Ordered on: Ordered History Of Present Illness Encounter Date Complaint History Of Prese nt Illness Lab results Blood work only weight loss The patient has lost 50.00lbs (22.73kgs) over a period of 2 year(s). The risk factors for weight loss include uterine fibroids. Pertinent negatives include decreased appetite, irregular heartbeat/palpitations and vomiting. Additional information: pt reports significant medical history of uterine fibroids that was treated in the past. pt reports slightly increased bleeding during menstrual cycle only compared to when they were normal. blood test Functional Status Date Functional Assessmen t No Information Instructions Date Instruction Additional Infor mation start atorvastatin 2 0mg dailyimprove dietavoid greasy, fatty, fried foodsregular exerciserepeat lipid panel 3 month Related to Hyperlipidemia, unspecified hyperlipidemia type start metformin 500m g BIDstart basaglar 10u dailyrx for insulin needlesglucose monitoringrx for blood glucose monitor with strips, lancets, alcohol swabsmay increase basaglar 2-4u q3-4 days until at current goal of average fasting blood glucose levels of <200diet and exercise modification, with focus on limiting intake of foods high in carbs and sugarsf/u in 2 weeks for evaluation of blood glucose levels Related to Insulin dependent diabetes mellitus labwork ordered, f/u resultsabd US and pelvic US ordered Related to Weight loss f/u pelvic US results Related to History of uterine fibroid Assessments Type Assessment Date No Information Patient Care Teams Name Effective Dates (start - stop) Status Members No Information
[2024-10-30 01:24] VITALS: O2SAT 95
[2024-10-30 01:50] LABS: Influenza A PCR NEGATIVE (Negative); Influenza B PCR NEGATIVE (Negative); Resp Syncy Virus RNA Qual PCR NEGATIVE (Negative); SARS COV2 PCR INHOUSE NEGATIVE (Negative)
--- OUTSIDE RECORDS SUMMARY | 2024-10-30 02:03 | XMS_ITS | Continuity of Care Document ---
Author Organization [facility] Address [address] [place] [address] Phone Care Team Providers Care Corn Crop Supervisor Name Role Phone Madatovian, DO DO, Harut [...] Test strips apply 1 not specified by [facility].(non-drug; combo) route 3 times every day 1 [...] Diagnoses Date Provider Providers Copied on Encounter [facility], [address], [place], [place], [id number], [place] tel:[phone] [place] No Information 1 Madatovian, DO Harut. [address] [facility] [address], [address]. tel:[phone] [facility], [address], [place], [place], [id number], [place] tel:[phone] [place] No Information Dec-0 - 0 Madatovian, DO Harut. [address] [facility] [address], [address]. tel:[phone] OV 15 MIN M/F [facility], [address], [place], [place], [id number], [place] tel:[phone] [place] Lab results (chief complaint) Insulin dependent diabetes mellitusLong term (current) use of insulinHyperlip idemia, unspecified hyperlipidemia type Madatovian, DO Harut. [address], [address]. tel:[phone] [facility], [address], [place], [place], [id number], [place] tel:[phone] [place] Blood work only (chief complaint) No Information No Information OV 20 MIN M/F [facility], [address], [place], [place], [id number], [place] tel:[phone] [place] blood test (chief complaint) weight loss (chief complaint) Encntr for general adult medical exam w/o abnormal findingsWeight lossHistory of uterine fibroid Madatovian, DO Harut. [address] [facility] [address], [address]. tel:[phone] Family History Family Member Type Diagnosis Age [...] Order: Lab Order CBC (INC LUDES DIFF/PLT) ([id number]), Ordered on: Ordered Future Order: Lab Order COMPREHE NSIVE METABOLIC PANEL ([id number]), Ordered on: Ordered Future Order: Lab Order HEMOGLOB IN A1C (496), Ordered on: Ordered Future Order: Lab Order LIPID PA BECCA ([id number]), Ordered on: Ordered Future Order: Lab Order THYROID PANEL WITH TSH, 3RD GENERATION (8901), Ordered on: Ordered Future Order: Lab Order URINALYS IS, COMPLETE (0523), Ordered on: Ordered Future Order: Lab Order C-REACTI VE PROTEIN ([id number]), Ordered on: Ordered Future Order: Lab Order SED RATE BY MODIFIED WESTERGREN (049), Ordered on: Ordered Future Order: Lab Order [...]
--- NOTE | 2024-10-30 02:35 | ED.URI ---
HPI - URI/Sore Throat General Chief Complaint: Upper Respiratory Symptoms Stated Complaint: headache Time Seen by Provider: 10/30/24 02:32 Source: patient Mode of arrival: ambulatory Limitations: no limitations History of Present Illness ED Provider: Dr. Collin Junior HPI Narrative: 48-year-old female with a history of chronic migraines, iron deficiency, depression, hyperlipidemia, hypertension, diabetes who presents emergency department for evaluation of migraine headache x5 days. She states that she has a pressure-like sensation in the frontal area of her head. The pain is 8/10 and constant. Associated with photophobia. She denied nausea, vomiting, weakness. She denied fever or chills. She states that she took her usual medications at home with no relief of her headache therefore she came to the emergency department for evaluation. Related Data Home Medications ?Medication ?Instructions ?Recorded ?Confirmed albuterol sulfate 90 mcg/actuation 2 puff inhalation Q4-6H PRN 08/07/20 11/22/23 aerosol inhaler (ProAir HFA) atorvastatin 20 mg tablet 20 mg PO DAILY 08/07/20 11/22/23 cetirizine 10 mg capsule (Zyrtec) 10 mg PO DAILY 08/07/20 11/22/23 cyclobenzaprine 5 mg tablet 5 mg PO BEDTIME PRN 08/07/20 11/22/23 gabapentin 300 mg capsule 300 mg PO TID 08/07/20 11/22/23 lisinopril 5 mg tablet 5 mg PO DAILY 08/07/20 11/22/23 metformin 500 mg tablet 500 mg PO BID 08/07/20 11/22/23 sertraline 50 mg tablet (Zoloft) 50 mg PO DAILY 08/07/20 11/22/23 aluminum-mag hydroxide-simethicone 5 ml PO QID PRN 04/19/22 11/22/23 400 mg-400 mg-40 mg/5 mL oral susp (Mylanta Maximum Strength) albuterol sulfate 2.5 mg/3 mL mg inhalation Q4H PRN wheezing 09/23/24 (0.083 %) solution for nebulization mometasone 100 mcg/actuation HFA 1 puff inhalation BID 09/23/24 aerosol inhaler (Asmanex HFA) Previous Rx's ?Medication ?Instructions ?Recorded clotrimazole 1 % topical cream 1 appl topical TID #45 grams 01/03/21 (Antifungal (clotrimazole)) blood sugar diagnostic (FreeStyle 1 strip miscellaneous TID for 02/17/21 Lite Strips) diabetes mellitus #100 strips dulaglutide 1.5 mg/0.5 mL 1.5 mg (0.5 mL) subcut QWEEK #2 mL 02/04/22 subcutaneous pen injector (Trulicity) lancets 33 gauge (TRUEplus Lancets) 1 gauge miscellaneous TID for 02/16/22 diabetes mellitus #100 ea benzonatate 200 mg capsule 200 mg PO TID PRN cough #10 caps 05/15/22 canagliflozin 300 mg tablet 300 mg PO QAM #30 tabs 07/13/22 (Invokana) bisacodyl 5 mg tablet,delayed 10 mg (2 x 5 mg) PO ONCE 1 day #2 09/21/22 release (Dulcolax (bisacodyl)) tabs polyethylene glycol 3350 17 238 g PO ONCE #238 grams 09/21/22 gram/dose oral powder (Miralax) sennosides 8.6 mg tablet (Natural 17.2 mg (2 x 8.6 mg) PO BEDTIME 12/29/22 Senna Laxative) constipation #180 tabs fluconazole 150 mg tablet 150 mg PO Q3D 2 doses #2 tabs 04/21/23 medroxyprogesterone 150 mg/mL 150 mg IM Q12W #1 mL 04/21/23 intramuscular suspension (Depo-Provera) metronidazole 0.75 % (37.5 mg/5 1 appful vaginal BEDTIME 5 days 05/03/23 gram) vaginal gel #70 grams pantoprazole 40 mg tablet,delayed 40 mg PO DAILY #90 tabs 09/12/23 release doxycycline hyclate 100 mg capsule 100 mg PO BID 10 days #20 caps 11/21/23 ketorolac 10 mg tablet 10 mg PO TID PRN pain 5 days #15 11/21/23 tabs prednisone 20 mg tablet 40 mg (2 x 20 mg) PO DAILY 5 days 11/21/23 #10 tabs miconazole nitrate 2 % vaginal 1 appful vaginal BEDTIME 7 days 11/22/23 cream (Miconazole-7) #45 grams cyclobenzaprine 10 mg tablet 10 mg PO TID #10 tabs 01/30/24 naproxen 500 mg tablet (Naprosyn) 500 mg PO BID #20 tabs 01/30/24 docusate sodium 100 mg capsule 100 mg PO BEDTIME #90 caps 04/04/24 famotidine 40 mg tablet 40 mg PO BEDTIME #90 tabs 04/04/24 prednisone 20 mg tablet 20 mg PO DAILY 12 days #26 tabs 08/11/24 albuterol sulfate 90 mcg/actuation 2 inh inhalation Q4-6H PRN 08/30/24 breath activated powder inhaler shortness of breath or wheezing #1 ea nystatin 100,000 unit/mL oral 1 ml PO DAILY #60 mL 08/30/24 suspension albuterol sulfate 90 mcg/actuation 1 inh inhalation QID PRN shortness 09/06/24 aerosol inhaler of breath or wheezing #8.5 grams prednisone 20 mg tablet 20 mg PO BID #10 tabs 09/06/24 ketorolac 10 mg tablet 10 mg PO Q8H #12 tabs 09/16/24 metoclopramide HCl 5 mg tablet 5 mg PO DAILY PRN nausea and 09/16/24 (Reglan) vomiting #12 tabs fluticasone furoate 200 1 inh inhalation DAILY #60 ea 09/23/24 mcg-vilanterol 25 mcg/dose inhalation powder (Breo Ellipta) qlexiie-encfyocaqbkou-enggtyul 250 2 tab PO Q6H PRN headache #30 tabs 10/30/24 mg-250 mg-65 mg tablet (Excedrin Migraine) diphenhydramine HCl 25 mg capsule 50 mg (2 x 25 mg) PO Q6H PRN 10/30/24 headache, nausea, vomiting #20 caps metoclopramide HCl 10 mg tablet 10 mg PO Q6H PRN nausea and 10/30/24 (Reglan) vomiting #14 tabs Allergies Allergy/AdvReac Type Severity Reaction Status Date / Time Seasonal Allergies Allergy Mild Runny Nose Verified 10/30/24 01:03 Review of Systems Review of Systems: Yes all other systems are reviewed and are negative [facility] Past Medical History [facility] Narrative: Social history: She denies tobacco, alcohol and drug use Medical History Dysplasia of cervix, low grade (DEE 1) Plantar fasciitis Chronic migraine Iron deficiency Depression Hyperlipidemia LDL goal <100 Essential hypertension Type 2 diabetes mellitus with hyperglycemia Surgical History Hx of tubal ligation Family History Family History Father No problems noted. Mother HTN (hypertension) Maternal Grandfather HTN (hypertension) Myocardial infarct Maternal Grandmother Diabetes Breast cancer Maternal Aunt Diabetes Social History Social History Household Members: Children Unable to assess alcohol history related to: Unknown Alcohol intake: former Patient Tobacco Use Status: Never used Tobacco Smoked in Last 30 Days: No Use of substances other than those prescribed or required for medical reasons: No Advance Directives: Yes Advance Directives on File: Yes Advance Directives Date on File: 11/23/23 Do you have a plan to hurt others: No Plan Physical Exam Vital Signs: Vital Signs: Last Vital Signs Temp 97.9 F 10/30/24 02:43 Pulse 85 10/30/24 02:43 Resp 14 10/30/24 02:43 BP 140/79 H 10/30/24 02:43 Pulse Ox 96 10/30/24 02:43 O2 Del Method Room Air 10/30/24 02:43 BMI result Body Mass Index 26.1 Vital signs revealed an elevated blood pressure of 140/79 Exam: General: Awake, alert in no distress Head: Normocephalic, atraumatic EENT: PERRL, Lids normal, sclera normal, conjunctiva normal, nose normal , ears normal, throat without erythema or exudates Neck: Supple, no adenopathy Lung: breath sounds symmetric, no wheezing, rales or rhonchi Chest: symmetric movement, nontender Heart: regular rate and rhythm, normal S1, S2 no murmurs or rubs Abdomen: soft, non-tender, nondistended, normal bowel sounds Back: no vertebral tenderness, no CVAT Extremities: no deformities, moves all extremities symmetrically Neuro: Awake, alert, oriented, normal speech, cranial nerves intact, moves all extremities symmetrically Psych: Pleasant, cooperative Medications Administered Discontinued Medications Generic Name Dose Route Start Last Admin Trade Name Freq PRN Reason Stop Dose Admin Diphenhydramine HCl 50 mg 10/30/24 03:21 10/30/24 03:46 Diphenhydramine Hcl 50 Mg/Ml Vial IVPUSH 10/30/24 03:22 50 mg ONCE STA Administration Sodium Chloride 1,000 mls @ 999 mls/hr 10/30/24 03:21 10/30/24 05:19 Ns IV 10/30/24 04:21 Infused .Q1H1M STA Infusion Ketorolac Tromethamine 15 mg 10/30/24 03:21 10/30/24 03:46 Ketorolac Tromethamine 15 Mg/Ml Vial IVPUSH 10/30/24 03:22 15 mg ONCE STA Administration Metoclopramide HCl 10 mg 10/30/24 03:21 10/30/24 03:46 Metoclopramide Hcl 10 Mg/2 Ml Vial IVPUSH 10/30/24 03:22 10 mg ONCE STA Administration Medical Decision Making Medical Decision Making [facility] Narrative: 48-year-old female with a history of chronic migraines, iron deficiency, depression, hyperlipidemia, hypertension, diabetes who presents emergency department for evaluation of 05/25, migraine headache x5 days associated with photophobia. Vital signs were normal. Physical examination was unremarkable. Differential diagnosis: ?Includes but is not limited to migraine headache, COVID-19, influenza, RSV Patient was initially treated with the following:Reglan 10 mg IV, Benadryl 50 mg IV, Toradol 15 mg IV, normal saline x1 L Course: 06:08 My interpretation patient's laboratory evaluation is as follows: COVID-19, influenza and RSV were negative. Patient's chest x-ray revealed no acute disease Patient's symptoms are consistent with a acute migraine syndrome. The patient had complete resolution of your symptoms with the above treatment. Patient was given prescriptions for Reglan 10 mg, Benadryl 50 mg and Excedrin migraine. She was to take these medications together every 6 hours as needed for her migraine syndrome. She was given printed and verbal instructions and discharged home. Admission/Observation Consideration of admission/observation: Escalation of care including admission/observation considered (Yes) Lab Data [facility] Lab Attestation statement: I reviewed the patient's lab results. Labs: Lab Results 10/30/24 Range/Units 01:09 Influenza Type A (PCR) NEGATIVE (Negative) Influenza Type B (PCR) NEGATIVE (Negative) RSV RNA Qual (PCR) NEGATIVE (Negative) SARS-CoV-2 RNA (RT-PCR) NEGATIVE (Negative) Independent Interpretation I performed an independent interpretation of an: Plain X-Ray Interpretation: My independent interpretation patient's chest x-ray is as follows: No acute disease Radiology Impression Discussion of test interpretation with radiology: I have reviewed the radiologist's reading. Radiologist Impression: 2 view chest x-ray Comparison: CR - XR CHEST 2V - 10/23/24 22:19 EST Findings: Lungs are well inflated. Mediastinal contours, cardiac silhouette, and vasculature are within normal limits. Lungs are clear. No pleural effusion. IMPRESSION: 1. No acute findings. This document has been electronically signed by: Cristian Rodrigez MD on 10/30/2024 01:42:01 Prescription Management I considered prescription management with: Pain Medication (Reglan, Benadryl, Excedrin migraine) Chronic Conditions Patient?s care impacted by: Diabetes and Other (Hyperlipidemia) Discharge Plan Discharge Clinical Impression: Migraine headache Qualifiers: Status migrainosus presence: without status migrainosus Intractability: not intractable Patient Disposition: Home, Self-Care Additional Instructions: Your COVID-19, RSV and influenza tests were negative. The chest x-ray was unremarkable. Your symptoms are consistent with a migraine. I want you to take the following 3 medications together every 6 hours as needed for headache, nausea or vomiting. ?Reglan (metoclopramide) in 10 mg, 1 pill Benadry (diphenhydramine) l 25 mg, 2 pills Excedrin migraine (acetaminophen, aspirin, caffeine), 2 pills. After you take these medications, lie down in a dark quiet room and try to fall asleep. ?These medications will make you sleepy, do not drive or work after taking these medications. Follow-up with your doctor in 2 days. Please return to the emergency department if your symptoms get worse or if you develop any symptoms that are concerning to you. Prescriptions: New diphenhydramine HCl 25 mg capsule 50 mg PO Q6H PRN (Reason: headache, nausea, vomiting) Qty: 20 0RF Excedrin Migraine 250-250-65 mg tablet 2 tab PO Q6H PRN (Reason: headache) Qty: 30 0RF metoclopramide HCl [Reglan] 10 mg tablet 10 mg PO Q6H PRN (Reason: nausea and vomiting) Qty: 14 0RF No Action blood sugar diagnostic [FreeStyle Lite Strips] Strip 1 strip miscellaneous TID Qty: 100 11RF Trulicity 1.5 mg/0.5 mL pen injector 1.5 mg subcut QWEEK Qty: 2 0RF lancets [TRUEplus Lancets] 33 gauge misc 1 gauge miscellaneous TID Qty: 100 11RF Invokana 300 mg tablet 300 mg PO QAM Qty: 30 0RF sennosides [Natural Senna Laxative] 8.6 mg tablet 17.2 mg PO BEDTIME Qty: 180 1RF metronidazole 0.75 % (37.5mg/5 gram) gel 1 appful vaginal BEDTIME 5 Days Qty: 70 0RF pantoprazole 40 mg tablet,delayed release (DR/EC) 40 mg PO DAILY Qty: 90 2RF Rx Instructions: take one tablet half an hour before breakfast famotidine 40 mg tablet 40 mg PO BEDTIME Qty: 90 3RF docusate sodium 100 mg capsule 100 mg PO BEDTIME Qty: 90 3RF clotrimazole [Antifungal (clotrimazole)] 1 % cream 1 appl topical TID Qty: 45 0RF Rx Instructions: Until better benzonatate 200 mg capsule 200 mg PO TID PRN (Reason: cough) Qty: 10 0RF cyclobenzaprine 10 mg tablet 10 mg PO TID Qty: 10 0RF naproxen [Naprosyn] 500 mg tablet 500 mg PO BID Qty: 20 0RF nystatin 100,000 unit/mL suspension 1 ml PO DAILY Qty: 60 0RF Rx Instructions: swish and swallow albuterol sulfate 90 mcg/actuation aerosol powdr breath activated 2 inh inhalation Q4-6H PRN (Reason: shortness of breath or wheezing) Qty: 1 0RF doxycycline hyclate 100 mg capsule 100 mg PO BID 10 Days Qty: 20 0RF prednisone 20 mg tablet 40 mg PO DAILY 5 Days Qty: 10 0RF ketorolac 10 mg tablet 10 mg PO TID PRN (Reason: pain) 5 Days Qty: 15 0RF prednisone 20 mg tablet 20 mg PO DAILY 12 Days Qty: 26 0RF Rx Instructions: Take 3 tablets for 5 days THEN; Take 2 tablets for 4 days THEN; Take 1 tablet for 3 days albuterol sulfate 90 mcg/actuation HFA aerosol inhaler 1 inh inhalation QID PRN (Reason: shortness of breath or wheezing) Qty: 8.5 0RF prednisone 20 mg tablet 20 mg PO BID Qty: 10 0RF ketorolac 10 mg tablet 10 mg PO Q8H Qty: 12 0RF Rx Instructions: Do not take with Naprosyn, ibuprofen or any NSAIDs, only Tylenol if needed metoclopramide HCl [Reglan] 5 mg tablet 5 mg PO DAILY PRN (Reason: nausea and vomiting) Qty: 12 0RF Rx Instructions: Take together with ketorolac p.r.n. migraines lisinopril 5 mg tablet 5 mg PO DAILY atorvastatin 20 mg tablet 20 mg PO DAILY metformin 500 mg tablet 500 mg PO BID gabapentin 300 mg capsule 300 mg PO TID cyclobenzaprine 5 mg tablet 5 mg PO BEDTIME PRN Zyrtec 10 mg capsule 10 mg PO DAILY sertraline [Zoloft] 50 mg tablet 50 mg PO DAILY albuterol sulfate [ProAir HFA] 90 mcg/actuation HFA aerosol inhaler 2 puff inhalation Q4-6H PRN alum-mag hydroxide-simeth [Mylanta Maximum Strength] 400-400-40 mg/5 mL suspension 5 ml PO QID PRN bisacodyl [Dulcolax (bisacodyl)] 5 mg tablet,delayed release (DR/EC) 10 mg PO ONCE 1 Days Qty: 2 0RF Rx Instructions: take 2 tabs at noon the day before your colonoscopy polyethylene glycol 3350 [Miralax] 17 gram/dose powder 238 g PO ONCE Qty: 238 0RF Rx Instructions: As directed by gastroenterology department at [facility] medroxyprogesterone [Depo-Provera] 150 mg/mL suspension 150 mg IM Q12W Qty: 1 5RF Rx Instructions: Start in 1st couple of days of next menses. fluconazole 150 mg tablet 150 mg PO Q3D 0 Days Qty: 2 2RF Rx Instructions: may repeat second dose 72 hrs after first dose if symptoms persist miconazole nitrate [Miconazole-7] 2 % cream 1 appful vaginal BEDTIME 7 Days Qty: 45 3RF albuterol sulfate 2.5 mg /3 mL (0.083 %) solution for nebulization inhalation Q4H PRN (Reason: wheezing) Asmanex HFA 100 mcg/actuation HFA aerosol inhaler 1 puff inhalation BID fluticasone furoate-vilanterol [Breo Ellipta] 200-25 mcg/dose blister with device 1 inh inhalation DAILY Qty: 60 6RF Print Language: Norwegian
[2024-10-30 02:43] VITALS: BP 140/79; PULSE 85; RESP 14; TEMP 36.6; O2SAT 96
[2024-10-30] MEDS: 0.9 % Sodium Chloride 1,000 ML 999 ML IV (03:46)
[2024-10-30] MEDS: Ketorolac Tromethamine 15 MG/ML VIAL IVPUSH (03:46)
[2024-10-30] MEDS: diphenhydrAMINE HCL 50 MG/ML VIAL IVPUSH (03:46)
[2024-10-30] MEDS: Metoclopramide HCl 10 MG/2 ML VIAL IVPUSH (03:46)
[2024-10-30 06:26] VITALS: BP 144/86; PULSE 83; RESP 18; TEMP 36.8; O2SAT 97
== END 2024-10-30 06:28 | disposition home or self-care (01) ==
PROVIDERS: Emergency Provider Emergency Medicine Emergency Medical Services; PCP General Practice
DX: G43.909 Migraine, unspecified, not intractable, without status migrainosus (principal); R05.9 Cough, unspecified; R07.9 Chest pain, unspecified; H53.143 Visual discomfort, bilateral; Z79.899 Other long term (current) drug therapy; Z03.818 Encounter for observation for suspected exposure to other biological agents ruled out
CPT/HCPCS: 0241U; 71046; 96361; 96374; 96375; 99284; 99285; J1200; J1885; J2765

== ENCOUNTER → 2024-10-30 01:25 | Outpatient (BNV) | payer MEDICAID, SELFPAY | PROVIDERS: PCP General Practice; Visit Provider Radiology Diagnostic Radiology | DX: R05.9 Cough, unspecified (principal) | CPT/HCPCS: 71046 ==

== ENCOUNTER 2024-11-19 15:30 | Outpatient (REF) | payer MEDICAID, SELFPAY ==
--- OUTSIDE RECORDS SUMMARY | 2024-11-19 15:33 | XMS_ITS | Encounter Summary ---
Author Organization [employer] Address [address] [place] [address] Care Team Providers Care Casing Grader Name Role Phone Lissy Gracia MD Primary Care Provider [phone] Reinaldo Persaud RN Unavailable [phone] Reason for Visit * Reason Onset Date Comments Nurse Triage 05/22/2023 Encounter Details Date Type Department Care Team ([facility] st Contact Info) Description 05/22/2023 Telephone [facility] [address] [place] [address] Lissy Gracia MD [address] [place], [place] [id number] Nurse Triage Social History Tobacco Use Types Packs/Day Years Used Date Smoking Tobacco: Never Smokeless Tobacco: Never Alcohol Use Standard Drinks/Week Comments Never 0 (1 standard drink = 0.6 oz pur e alcohol) Comments Unknown Sex and Gender Information Value Date Recorded Sex Assigned at Female 08/15/2022 10:20 AM EDT Legal Sex Female 10:20 AM EDT Gender Identity Female 08/15/2022 10:20 AM EDT Sexual Orientation Straight 08/15/2022 10 :20 AM EDT documented as of this encounter Miscellaneous Notes * Telephone Encounter - Lorraine Gallo RN - 05/22/2023 1:44 PM EDT Triage call Pt reports bodyaches for several months now. Pt wants to know abnormal results of lab from 04/21/23. Sure swab done . Reschedule of apt from 10/05/23 for DM follow up , discuss free style libre2 sensor and meter. Apt with Dr. Cervantes 330pm 05/22/23. Insurance is verified as active prior tobooking. Protocol Used: Muscle Aches and Body Pain (Adult) Protocol-Based Disposition: See in Office or Video Visit within 3 Days Video visit not offered Positive Triage Question: * Patient wants to be seen * All higher-acuity triage questions were negative Care Advice Discussed: * Reassurance and Education - Mild Muscle Pain * Pain Medicines * Pain Medicines - Extra Notes and Warnings * Reasons To Call Back - Fever occurs - Pain lasts longer than 7 days - You become worse * Telephone Encounter - Amanda Alicea - 05/22/2023 1:20 PM EDT Patient calling to report body pain . Patient speaks Pashto. Advised triage nurse will call patient back. documented in this encounter Plan of Treatment Upcoming Encounters Date Type Department Care Team (Late st Contact Info) Description 11/28/2024 9:00 AM EST Office Visit [facility] [address] [place] [address] Kasia Wendi 2024 9:00 AM EST Office Visit [facility] [address] [place] [address] Wendi Pedroza 12/16/2024 3:45 PM EST Office Visit [facility] [address] [place] [address] Lissy Gracia MD [address] [place] [address] documented as of this encounter Visit Diagnoses Not on filedocumented in this encounter Care Teams Casing Grader Relationship Specialty Start Date End Date Lissy Gracia MD [address] [place] [address] PCP - General Family Medicine 06/07/21 Reinaldo Persaud RN [address] [place] [id number] Investigation Division SergeantSupervisor [facility] 11/05/24 documented as of this encounter
--- OUTSIDE RECORDS SUMMARY | 2024-11-19 15:33 | XMS_ITS | Encounter Summary ---
Author Organization [employer] [facility] Address [address] [place] [address] Care Team Providers Care Environmental Remediation Consultant Name Role Phone Lissy Gracia MD Primary Care Provider [phone] Rienaldo Persaud RN Unavailable [phone] Reason for Visit * Reason Comments Med Refill Encounter Details Date Type Department Care Team (Late st Contact Info) Description 05/12/2023 Refill [facility] [address] [place] [address] Lissy Gracia MD [address] [place] [address] Social History Tobacco Use Types Packs/Day Years Used Date Smoking Tobacco: Never Smokeless Tobacco: Never Comments Unknown Sex and Gender Information Value Date Recorded Sex Assigned at Female 08/15/2022 10:20 AM EDT Legal Sex Female 10:20 AM EDT Gender Identity Female 08/15/2022 10:20 AM EDT Sexual Orientation Straight 08/15/2022 10 :20 AM EDT COVID-19 Exposure Response Date Recorded In the last 10 days, have yo u been in contact with someone who was confirmed or suspected to have Coronavirus/COVID-19? No / Unsure 04/21/2023 8:44 AM EDT documented as of this encounter Plan of Treatment Upcoming Encounters Date Type Department Care Team (Late st Contact Info) Description 11/28/2024 9:00 AM EST Office Visit [facility] [address] [place] [address] Wendi Pedroza 2024 9:00 AM EST Office Visit [facility] [address] [place] [address] Wendi Pedroza 12/16/2024 3:45 PM EST Office Visit [facility] [address] [place] [address] Lissy Gracia MD [address] [place] [address] documented as of this encounter Visit Diagnoses Not on filedocumented in this encounter Care Teams Environmental Remediation Consultant Relationship Specialty Start Date End Date Lissy Gracia MD [address] [place] [address] PCP - General Family Medicine 06/07/21 Reinaldo Persaud, RN [address] [place] [id number] Assembler FaucetsTrain Examiner 11/05/24 documented as of this encounter
--- OUTSIDE RECORDS SUMMARY | 2024-11-19 15:33 | XMS_ITS | Encounter Summary ---
Author Organization [employer] Address [address] [place] [address] Care Team Providers Care Industrial Sales Representative Name Role Phone Lissy Gracia MD Primary Care Provider [phone] Encounter Details Date Type Department Care Team ([facility] st Contact Info) Description 10/22/2024 Orders Only GENERIC EXTERNAL DATA DEPARTMENT Provider, Generic External Data Social History Tobacco Use Types Packs/Day Years Used Date Smoking Tobacco: Never Passive Smoke Exposure: Never Smokeless Tobacco: Never Alcohol Use Standard Drinks/Week Comments Never 0 (1 standard drink = 0.6 oz pur e alcohol) Alcohol Answer Date Recorded Frequency of Alcohol Consumption Not on file 02/05/2024 Average Number of Drinks Not on file 024 Frequency of Binge Drinking Not on file 01/15 Score 0 02/05/2024 Depression Answer Date Recorded Patient Health Questionnaire-9 Score 0 02/05/2024 Patient Health Questionnaire-9 Score 0 02/05/2024 Last PHQ-9: Questionnaire Data Not on file 0 02/05/2024 Housing Stability Answer Date Recorded What is your housing situation today? I have priscila kruse 08/10/[address] you li ve. Do you have problems with any of the following? None of the above 08/10/2023 Food Insecurity Answer Date Recorded Within the past 12 months, y ou worried that your food would run out before you got money to buy more: Never True 08/10/2023 Within the past 12 months,th e food you bought just didn't last and you didn't have enough money to get more: Never True Transportation Answer Date Recorded In the past 12 months, has l ack of transportation kept you from medical appts, meetings, work or from getting things needed for daily living? Yes, it has kept me from medical appointments or getting medications. 02/05/2024 Utilities Answer Date Recorded In the past 12 months, has t he electric, gas, oil or water company threatened to shut off services in your home? No 08/10/2023 Depression Answer Date Recorded Patient Health Questionnaire-2 Score 0 02/05/2024 Internet Access Answer Date Recorded Internet Access Q1 Yes 06/17/2024 Internet Access Q2 Not on file 06/17/2024 Comments Unknown Sex and Gender Information Value [...] Description 11/28/2024 9:00 AM EST Office Visit [facility] [address] [place] [phone] Wendi Pedroza 2024 9:00 AM EST Office Visit [facility] [address] [place] [phone] Wendi Pderoza 12/16/2024 3:45 PM EST Office Visit [facility] [address] [place] [phone] Lissy Gracia MD [address] [place] [phone] documented as of this encounter Procedures Procedure Name Priority Date/Time Associated Diagnosis Comments IMMUNOGLOBULIN E Routine 10/22/2024 3:49 PM EST documented in this encounter Results * Immunoglobulin E (10/22/2024 3:49 PM EST) Immunoglobulin E 3 <BQ=256 kU/L [facility] Comment:THIS TEST WAS PERFOR MED AT:[facility] [place] [id number] HEIN MD 10/22/2024 3:49 PM EST 10/22/2024 5:46 PM EST us Generic External Data Provider LAB BLOOD ORDERAB LES Final Result [facility] [address] [place] [address] [phone] documented in this encounter Visit Diagnoses Not on filedocumented in this encounter Additional Health Concerns Assessment Noted Time PHQ-9 Depression Total Score: 0 02/05/20 24 1:47 PM EDT documented as of this encounter Care Teams Industrial Sales Representative Relationship Specialty Start Date End Date Lissy Gracia MD [address] [place] [address] PCP - General Family Medicine 06/07/21 documented as of this encounter
--- OUTSIDE RECORDS SUMMARY | 2024-11-19 15:34 | XMS_ITS | Encounter Summary ---
Author Organization [employer] Address [address] [place] [address] Care Team Providers Care Contact Person Name Role Phone Lissy Gracia MD Primary Care Provider [phone] Reinaldo Persaud RN Unavailable [phone] Reason for Visit * Reason Onset Date Comments Care Management 11/05/2024 C3CM- initial as sessment/ enrollment. Encounter Details Date Type Department Care Team ([facility] st Contact Info) Description 11/05/2024 Telephone [facility] [address] [place], [place] [phone] Reinaldo Persaud RN [address] [place], [place] [phone] Care Management (C3CM- initial assessment/ enrollment.) Social History Tobacco Use Types Packs/Day Years [...] encounter Miscellaneous Notes * Telephone Encounter - Reinaldo Persaud RN - 11/05/2024 3:53 PM EST CODY Persaud RN, provided notification to PCP Dr. Gracia of patient's enrollment into [facility] Complex [facility] Program. CODY Persaud RN, completed care plan and sent to HIM to be scanned into the medical record. PCP notified and awaiting review from provider. CM plan: - assist patient with scheduling appts with specialists - provide patient with appt reminders and assist with transportation to visits as needed - provide education on disease processes and management - provide resources based on positive SDOH needs * Telephone Encounter - Reinaldo Persaud RN - 11/05/2024 3:52 PM EST CODY Persaud RN placed outbound call to patient for agreed upon time for initial assessment for enrollment into Adult Care Management Program. Patient's name, , and address were verified. Irene is a 48 year female with Hx of cervical radiculopathy, orthopnea, dyspnea on exertion, snoring, asthma,chronic cough, HTN, GERD, plantar fasciitis, fibromyalgia, iron deficiency, Type 2 DM, chronic migraine without aura, hyperlipidemia, and recurrent depression. Patient reports being [facility] for outpatient behavioral health and psych. She states she sees her therapist 1-3x / week as needed. She also meets with her psychiatrist every 3 months. Per patient, doing well on medications for anxiety and depression. She reports doing well emotionally today and denies any concerns. Per patient, able to contact her therapist as needed. She also reports having the number to crisis and knows to call as needed. Patient reports being followed by [facility] AUTOMOTIVE INTERNET SALES MANAGER, [facility] GI, [facility] General Surgery, and [facility] Cardiology. She is scheduled to see Cardiology on 12/09/24 at 10:00am. She is also scheduled to see AUTOMOTIVE INTERNET SALES MANAGER on 11/26/24 at 3:30pm. Per patient, missed visits with GI and General Surgery. She is requesting assistance with rescheduling these appts. CM will assist. Patient also recently referred to PT. No appt scheduled yet. CM will follow up with referral and will assist with scheduling an appt. Patient reports meeting with her provider today for acupuncture. She states the acupuncture has been effective in helping manage her pain. She is also scheduled to f/u with the Pain Clinic at [facility] on 11/11/24. She is aware of this visit and denies any barriers to attending. Patient reports Hx of HTN and DMType 2. She states she does not follow a specific diet. Per patient, has a working BP monitor and gl ucometer. She states she does not check her BP daily and will only monitor if not feeling well. Shealso states she does not check her sugars BID as recommended. She states she last checked her sugars about 1 week ago. She denies any symptoms currently. Per patient, PCP is aware that the patient isnot compliant with checking her sugars. CM educated patient on the importance in monitoring her blood pressures and sugars. CM educated patient on BG/BP parameters and instructed patient on when to contact her provider for follow up. CM also provided education on diet and lifestyle modifications. Patient verbalizes understanding and is agreeable to begin to monitor. She is also agreeable to keeping a log which CM will go over with patient at the next f/u call. Per patient, takes all medicationsas directed. She denies forgetting to take her meds or missing any doses. Patient also denies any side effects or concerns. Patient denies having any SDOH needs at this time. She denies any further needs or concerns. Care management program explained and contact information given. Patient verbalizes understanding, and able to repeat back to data analyst report writer. A follow up call will be placed within 10 days, patient agrees with plan. documented in this encounter Plan of Treatment Upcoming Encounters Date Type Department Care Team (Late st Contact Info) Description 11/28/2024 9:00 AM EST Office Visit [facility] [address] [place] [phone] Kasia Wendi 2024 9:00 AM EST Office Visit [facility] [address] [place] [phone] Pedroza, Wendi 12/16/2024 3:45 PM EST Office Visit [facility] [address] [place] [phone] Lissy Gracia MD [address] [place] [phone] documented as of this encounter Visit Diagnoses Not on filedocumented in this encounter Additional Health Concerns Assessment Noted Time PHQ-9 Depression Total Score: 0 02/05/20 24 1:47 PM EDT documented as of this encounter Care Teams Contact Person Relationship Specialty Start Date End Date Lissy Gracia MD [address] [place] [phone] PCP - General Family Medicine 06/07/21 Reinaldo Persaud RN [address] [place] [phone] Studio CoordinatorSkills Auditor 11/05/24 documented as of this encounter
--- OUTSIDE RECORDS SUMMARY | 2024-11-19 15:34 | XMS_ITS | Encounter Summary ---
Author Organization [employer] Address [address] [place] [address] Care Team Providers Care Plate Washer Name Role Phone Lissy Gracia MD Primary Care Provider [phone] Reinaldo Persaud RN Unavailable [phone] Encounter Details Date Type Department Care Team ([facility] st Contact Info) Description 11/07/2024 Patient Outreach [facility] [address] [place], [place] [phone] Lissy Gracia MD [address] [place] [address] Social History Tobacco Use Types Packs/Day Years [...] AM EDT documented as of this encounter Progress Notes * Birgit Persaud - 11/07/2024 2:03 PM EST CHW Birgit Persaud received incoming call from Teresa Greene RN regarding no heat in pt apartment. CHW was able to communicate with pt. Pt and address was confirmed. Pt states no heat in her apartment unit as heat is not adequately working. Per pt, she has called the property management offices requesting assistance and was told a heater would be brought to her unit, but nothing has been done. CHW asked patient how high is temp in apartment, and per pt it goes up to 66 degrees. Prior to connecting with Property Management offices, CHW placed call to [employer] Code Enforcement Nurse for assistance, but was directed to where CHW LVM requesting call back. CHW then requested patient for verbal consent to speak with property management offices -[facility] [phone], DONTAE Hoff. CHW placed call to DONTAE Meza, introduced herself calling from [facility] requesting assistance with heating on pt unit. Upon CHWs request PM states pt arrived at PM office in which at this point PM requested to place CHW on speaker for pt to be able to listen to conversation. PM Susana states pt did request additional heating support as unit has not been warm enough. PM clarified to CHW that pt's unit heating system works as they recently switch thermostat wires. Per pt states to PM that even though she puts heating up to 90 degrees on the thermostat, apartment does not reach heating of such temperature. Per PM all 1st floor units have the same issue, and reassured that reading temperatures have shown 70+ when checked by the maintenance team. CHW can hear both Patient and PM have a back and forth as pt claimed heating not going up higher than 75degrees despite pt setting it up to 90degrees, and PM stating that is not in their control. CHW requested additional heating for pt as is currently cold is affecting patient's health. PM stating small space heater will be delivered to pt unit before 5PM today 11/06/2024. CHW to check in with patient late this afternoon for an update and will keep provider updated. Lastly, code enforcement nurse returned CHW call back, and CHW updated on stated above details. Pt provided with CHWs direct contact [phone], for future assistance. Patient verbalized understanding and agrees with plan. documented in this encounter Plan of Treatment Upcoming Encounters Date Type Department Care Team (Late st Contact Info) Description 11/28/2024 9:00 AM EST Office Visit [facility] [address] [place] [address] Wendi Pedroza 2024 9:00 AM EST Office Visit [facility] [address] [place] [address] Wendi Pedroza 12/16/2024 3:45 PM EST Office Visit [facility] [address] [place] [address] Lissy Gracia MD [address] [place] [address] documented as of this encounter Visit Diagnoses Not on filedocumented in this encounter Additional Health Concerns Assessment Noted Time PHQ-9 Depression Total Score: 0 02/05/20 24 1:47 PM EDT documented as of this encounter Care Teams Plate Washer Relationship Specialty Start Date End Date Lissy Gracia MD [address] [place] [address] PCP - General Family Medicine 06/07/21 Reinaldo Persaud RN [address] [place] [phone] Tablet TechnicianLast Greaser 11/05/24 documented as of this encounter
--- OUTSIDE RECORDS SUMMARY | 2024-11-19 15:34 | XMS_ITS | Encounter Summary ---
Author Organization [employer] Address [address] [place] [address] Care Team Providers Care Diesel Lube Tech Name Role Phone Lissy Gracia MD Primary Care Provider [phone] Reinaldo Persaud RN Unavailable [phone] Encounter Details Date Type Department Care Team (Latest Contact Info) Description 11/07/2024 Travel Social History Tobacco Use Types Packs/Day Years [...] Description 11/28/2024 9:00 AM EST Office Visit [facility] [address] [place] [address] Wendi Pedroza 2024 9:00 AM EST Office Visit [facility] [address] [place] [phone] Wendi Pedroza 12/16/2024 3:45 PM EST Office Visit [facility] [address] [place] [address] Lissy Gracia MD [address] [place] [phone] documented as of this encounter Visit Diagnoses Not on filedocumented in this encounter Additional Health Concerns Assessment Noted Time PHQ-9 Depression Total Score: 0 02/05/20 24 1:47 PM EDT documented as of this encounter Care Teams Diesel Lube Tech Relationship Specialty Start Date End Date Lissy Gracia MD [address] [place] [phone] PCP - General Family Medicine 06/07/21 Reinaldo Persaud RN [address] [place] [phone] Rigger ThirdSupervisor Claims 11/05/24 documented as of this encounter
--- OUTSIDE RECORDS SUMMARY | 2024-11-19 15:34 | XMS_ITS | Clinical Summary ---
Author Organization [employer] Address [address] [place] [address] Care Team Providers Care Sybase Developer Name Role Phone Lissy Gracia MD Primary Care Provider [phone] Reinaldo Persaud RN Unavailable [phone] Allergies No known active allergies Medications docusate sodium (Colace) 100 MG capsule Take 100 mg by mouth at bedtime. 022 Active famotidine (Pepcid) 40 MG tablet Take 40 mg by mouth at bedtime. 022 Active Blood Glucose Monitoring Suppl (Tilana SystemsStyle Lite) w/Device kitIndications:Ty pe 2 diabetes mellitus with hyperglycemia, without long-term current use of insulin ([facility]) 1 kit 2 times daily. To monitor blood glucose. 1 kit 023 Active sertraline (Zoloft) 100 MG tablet TAKE 1 AND 1/2 TABLETS BY MOUTH IN THE MORNING 023 Active busPIRone (Buspar) 15 MG tablet TAKE 1 TABLET BY MOUTH TWICE DAILY IN THE MORNING AND IN THE EVENING FOR ANXIETY / PANICO 180 tablet 3 023 Active Mometasone Furoate (Asmanex HFA) 100 MCG/ACT aerosol Inhale 1 puff 2 times daily. Inhale 1 puff in the morning and at bedtime. Rinse mouth with water after use to reduce aftertaste and incidence of candidiasis. Do not swallow. 13 g 11 024 Active ibuprofen 400 MG tablet Take 1 tablet (400 mg) by mouth every 8 (eight) hours if needed for moderate pain or fever for up to 30 doses. 15 tablet 02/06/2 024 Active Blood Pressure kit 1 each 2 times daily. 1 kit 024 2024 Active Spacer/Aero-Holdi ng Chambers (Pro Comfort Spacer Adult) miscIndications:B ronchitis For use with inhaler. 1 each Active FeroSul 325 (65 Fe) MG tablet TAKE 1 TABLET BY MOUTH EVERY OTHER DAY IN THE MORNING WITH FOOD OR ORANGE JUICE 45 tablet 6 Active fluticasone (Flonase) 50 MCG/ACT nasal sprayIndications: Allergic rhinitis, unspecified seasonality, unspecified trigger INHALE 1 TO 2 SPRAYS IN EACH NOSTRIL ONCE DAILY NEEDED 48 g 3 Active metFORMIN (Glucophage) 500 MG tablet TAKE 2 TABLETS BY MOUTH TWICE DAILY IN THE MORNING AND EVENING WITH MEALS 360 tablet 3 Active Diclofenac Sodium 1 % gelIndications:Ce rvical radiculopathy Apply 1 Application topically if needed in the morning and at bedtime (pain in feet). 100 g 6 Active gabapentin (Neurontin) 300 MG capsuleIndication s:Chronic bilateral low back pain, unspecified whether sciatica present TAKE 1 CAPSULE BY MOUTH TWICE DAILY IN THE MORNING AND IN THE EVENING and TAKE 2 CAPSULES BY MOUTH EVERY DAY AT BEDTIME 120 capsule 11 Active lidocaine (Lidoderm) 5 % patchIndications: Cervical radiculopathy APPLY 1 TO 2 PATCHES TOPICALLY TO SKIN, LEAVE ON FOR 12 HOURS AND OFF FOR 12 HOURS DIRECTED 60 patch 6 Active Invokana 300 MG TAKE 1 TABLET BY MOUTH EVERY MORNING BEFORE BREAKFAST 90 tablet 3 Active albuterol (Ventolin HFA) 108 (90 Base) MCG/ACT inhalerIndication s:Bronchitis INHALE 2 PUFFS BY MOUTH EVERY 4 HOURS NEEDED 18 g 6 Active hydroCHLOROthiazi de (HYDRODiuril) 25 MG tablet Take 1 tablet (25 mg) by mouth Once per day. 30 tablet 11 024 2024 Active lisinopril 10 MG tablet Take 1 tablet (10 mg) by mouth Once per day. 30 tablet 11 024 2024 Active glipiZIDE XL (Glucotrol XL) 10 MG 24 hr tabletIndications :Type 2 diabetes mellitus with hyperglycemia, without long-term current use of insulin ([facility]) Take 1 tablet (10 mg) by mouth in the morning. 90 tablet 3 Active acetaminophen (Tylenol) 325 MG tablet Take 2 tablets (650 mg) by mouth every 4 (four) hours if needed for moderate pain, headaches or fever. 40 tablet Active ondansetron ODT (Zofran-ODT) 4 MG disintegrating tablet DISSOLVE 1 TABLET ENCIMA DE LA LENGUA EVERY 8 HOURS DIRECTED 20 tablet 3 Active atorvastatin (Lipitor) 40 MG tabletIndications :Other hyperlipidemia TAKE 1 TABLET BY MOUTH EVERY EVENING 90 tablet 3 Active ARIPiprazole (Abilify) 2 MG tabletIndications :Recurrent depression ([facility]) Take 1 tablet by oral route every day at noon 90 tablet 3 Active Alcohol Swabs (SM Alcohol Prep) 70 % padsIndications:T ype 2 diabetes mellitus with hyperglycemia, without long-term current use of insulin ([facility]) Apply 1 each topically 2 times daily. 100 each 11 Active TRUEplus Lancets 33G miscIndications:T ype 2 diabetes mellitus with hyperglycemia, without long-term current use of insulin ([facility]) Apply 1 each topically 2 times daily. 100 each Active Dulaglutide 1.5 MG/0.5ML solution auto-injectorIndi cations:Type 2 diabetes mellitus with hyperglycemia, without long-term current use of insulin ([facility]) Inject 0.5 mL (1.5 mg) as directed 1 (one) time per week. 2 mL 11 Active FREESTYLE LITE test stripIndications: Type 2 diabetes mellitus with hyperglycemia, without long-term current use of insulin ([facility]) 1 each by Other route 2 times daily. Use as instructed 100 each Active Magnesium 400 MG capsuleIndication s:Muscle pain Take 1 capsule by mouth at bedtime. 90 capsule 3 Active cyclobenzaprine (Flexeril) 10 MG tabletIndications :Upper back pain One tab po at bedtime prn pain of muscles, do not drive with medicaion 20 tablet Active albuterol (2.5 MG/3ML) 0.083% nebulizer solutionIndicatio ns:Bronchitis INHALE 1 AMPULE USING A NEBULIZER EVERY 4 HOURS NEEDED FOR WHEEZING 90 mL 3 Active LORazepam (Ativan) 0.5 MG tablet Take 1 tablet by mouth 2 times daily. Active magnesium oxide (Mag-Ox) 400 MG tablet Take 1 tablet by mouth at bedtime. Active Breo Ellipta 200-25 MCG/ACT aerosol powder INHALE 1 PUFF BY MOUTH EVERY DAY AT THE SAME TIME RINSE MOUTH AFTER USING Active diphenhydrAMINE (BENADryl) 25 MG capsule TAKE 2 CAPSULES BY MOUTH EVERY 6 HOURS NEEDED FOR NAUSEA AND VOMITING AND HEADACHE Active Pain Reliever Plus 250-250-65 MG tablet TAKE 2 TABLETS BY MOUTH EVERY 6 HOURS NEEDED FOR HEADACHE Active Miconazole 7 2 % vaginal cream INSERT 1 APPLICATORFUL VAGINALLY AT BEDTIME FOR 7 DAYS Active nystatin (Mycostatin) 720082 UNIT/ML suspensionIndicat ions:Thrush, oral Take 4 mL (400,000 Units) by mouth 4 times daily for 14 days. 224 mL 025 2024 Active cetirizine (ZyrTEC) 10 MG tabletIndications :Allergic rhinitis, unspecified seasonality, unspecified trigger TAKE 1 TABLET BY MOUTH EVERY MORNING NEEDED 90 tablet 3 024 2024 Discontinued(T herapy completed) amitriptyline (Elavil) 50 MG tablet TAKE 1 TABLET BY MOUTH AT BEDTIME 90 tablet 3 024 2024 Discontinued albuterol (2.5 MG/3ML) 0.083% nebulizer solutionIndicatio ns:Bronchitis INHALE 1 AMPULE USING A NEBULIZER EVERY 4 HOURS NEEDED FOR WHEEZING 90 mL 3 024 2024 Discontinued cephalexin (Keflex) 500 MG capsuleIndication s:Cellulitis of head except face Take 1 capsule (500 mg) by mouth 3 times daily for 5 days. 15 capsule 025 2024 metoclopramide (Reglan) 10 MG tablet take 1 tablet by mouth every 6 hours as needed for nausea and vomiting 025 2024 Discontinued(T herapy completed) ketorolac (Toradol) 10 MG tablet TAKE 1 TABLET BY MOUTH EVERY 8 HOURS. DO no TAKE WITH Naprosyn, ibuprofen OR NSAIDs, ONLY Tylenol IF necesario 024 2024 Discontinued(T herapy completed) predniSONE (Deltasone) 20 MG tablet Take 3 tablets (60 mg) by mouth Once per day for 5 days. 15 tablet 025 2024 Active Problems Problem Noted Date Diagnosed Date Retained dental root 11/19/2024 Thrush, oral 11/11/2024 Fibromyalgia 10/29/2024 Assessment & Plan (11/11/2024 12:52 PM EST): Pt attended and participated in chronic pain group today - good engagement with group model of care - continue to use combination of non-pharmacological modalities to address pain - followup in one month for theme stress and pain ++ consider Cymbalta for her pain/depression. Stop Amitriptyline today, would need to coordinate with her psychiatrist about tapering Zoloft and ramping up Cymbalta Assessment & Plan (10/30/2024 2:09 PM EST): Pt attended and participated in chronic pain group today - good engagement with group model of care - continue to use combination of non-pharmacological modalities to address pain - followup in one month for theme stress and pain ++ consider Cymbalta for her pain/depression and stop AMitryptiline Upper back pain 10/29/2024 Overview (10/29/2024): Likely musculoskeletal. Non-focal, normal motor exam without neurological deficits. No back pain red-flags: bowel/bladder incontinence, IVDU, urinary retention, saddle anesthesia, and significant motor deficits. - Recommend ibuprofen and muscle relaxer prn. - Physical therapy referral offered. 10/29/24 - Acupuncture: Pt is already engaged 10/29/24 - Lifting precaution sand stretching reviewed. - Prescribed cyclobenzaprine (Flexeril) 10 MG tablet 10/29/24 - ER precautions discussed. 10/29/24 - Seek medical attention for worsening symptoms. 10/29/24 Assessment & Plan (10/29/2024 9:53 AM EST): Likely musculoskeletal. Non-focal, normal motor exam without neurological deficits. No back pain red-flags: bowel/bladder incontinence, IVDU, urinary retention, saddle anesthesia, and significant motor deficits. - Recommend ibuprofen and muscle relaxer prn. - Physical therapy referral offered. 10/29/24 - Acupuncture: Pt is already engaged 10/29/24 - Lifting precaution sand stretching reviewed. - Prescribed cyclobenzaprine (Flexeril) 10 MG tablet 10/29/24 - ER precautions discussed. 10/29/24 - Seek medical attention for worsening symptoms. 10/29/24 Chronic cough 10/29/2024 Overview (10/29/2024): Likely pertussis. Under the care of pulmonology. - Next visit will be November 04, 2024 10/29/24 - ER precautions discussed. 10/29/24 - Seek medical attention for worsening symptoms. 10/29/24 Assessment & Plan (10/29/2024 9:08 AM EST): Likely pertussis. Under the care of pulmonology. - Next visit will be November 04, 2024 10/29/24 - ER precautions discussed. 10/29/24 - Seek medical attention for worsening symptoms. 10/29/24 Mild persistent asthma without complication 01/15 Assessment & Plan (02/05/2024 3:11 PM EDT): Not active currently Was flared this past winter with multiple viral illnesses COVID-19 virus infection 06/15/2023 Assessment & Plan (06/15/2023 2:43 PM EDT): Drink plenty of fluids and rest quarantine as per CDC guidelines paxlovid prescribed I advise to hold lipitor for he 5 days of treatment and 3 days after Further instructions may arise pharmacy will contact her if needed I advise to monitor her O2 sat to be above 93% If confusion increase SOB od low O2 sats I advise to call ambulance or go immediatly to ED Orthopnea 05/22/2023 Assessment & Plan (05/22/2023 4:16 PM EDT): Pulmonary function test already ordered, I will find out what happened with the order Dyspnea on exertion 05/22/2023 Assessment & Plan (06/02/2023 6:16 AM EDT): Today I forwarded previous order, sleep studies, PFTs to red team nurse staff to check status of referrals. Snoring 05/22/2023 Environmental allergies 09/21/2022 Edema of foot 06/17/2022 Gastroesophageal reflux disease 06/17/2022 Assessment & Plan (08/30/2024 1:16 PM EST): Continue Protonix, OTC Lifestyle changes Assessment & Plan (10/06/2022 9:19 AM EST): Continue Protonix, OTC Lifestyle changes Assessment & Plan (10/06/2022 9:01 AM EST): Continue Protonix, OTC Lifestyle changes Cervical radiculopathy 05/12/2021 Assessment & Plan (06/14/2023 6:08 AM EDT): Pt current Sx appear muscular in nature, w normal neurologic exam. Pt describes mild on and off tingling in hands - possibly pain associated w her work. -Advise warm compresses. -Tylenol PRN for mild pain, NSAIDs for moderate pain. -Prn muscle relaxants - advised to be careful when taking, given possible interaction w antidepressants which pt is aware of already. -awaiting PT -Neck XR with tilting of head to R, no bony findings Assessment & Plan (06/02/2023 6:15 AM EDT): Pt current Sx appear muscular in nature, w normal neurologic exam. Pt describes mild on and off tingling in hands - possibly pain associated w her work. -Advise warm compresses. -Tylenol PRN for mild pain, NSAIDs for moderate pain. -Pt has muscle relaxants - advised to be careful when taking, given possible interaction w antidepressants which pt is aware of already. -Referred to PT today. -Neck XR. -Has fu w PCP next week. Chronic migraine without aura 05/12/2021 Hypertensive disorder 12/02/2020 Assessment & Plan (08/30/2024 1:15 PM EST): Continue Lisinopril 10mg daily, hydrochlorothiazide 25mg daily Check BP at home, notify us if persistently > 140/90 Low Na diet Exercise daily if possible Assessment & Plan (02/05/2024 3:11 PM EDT): Continue Lisinopril 5mg daily Check BP at home, if persistently >140/90, increase to 10mg Lisinopril Low Na diet Exercise daily if possible Assessment & Plan (12/27/2023 9:46 AM EDT): Continue Lisinopril 5mg daily Check BP at home, if persistently >140/90, increase to 10mg Lisinopril Low Na diet Exercise daily if possible Assessment & Plan (06/14/2023 6:06 AM EDT): Continue Lisinopril 5mg daily Low Na diet Exercise daily if possible Assessment & Plan (10/06/2022 9:20 AM EST): Continue Lisinopril 5mg daily Low Na diet Exercise daily if possible Assessment & Plan (10/06/2022 9:01 AM EST): Continue Lisinopril 5mg daily Low Na diet Exercise daily if possible Blood in urine 12/02/2020 Type 2 diabetes mellitus 08/21/2015 Assessment & Plan (10/22/2024 2:14 PM EST): Stop Glipizide 10mg in the morning as patient appears to be having hypoglycemic episodes, including shaking in [place] where she hit her head Assessment & Plan (09/10/2024 1:44 PM EST): As I am patient's PCP, I placed orders for her diabetic supplies and medications during her accupuncture visit. Assessment & Plan (08/30/2024 1:15 PM EST): Controlled A1C 7.0 No med changes necessary at this time - Continue Trulicity 1.5mg SQ weekly - Continue Metformin 1,00mg BID - Continue canagliflozen 300mg daily Maintenance: Eye Exam: [facility] at [facility] 04/2022, next 04/2024 Diabetic foot exam: 01/2024, decreased sensation and referral to podiatry ASCVD 10 year risk: Calculate pending updated lipid panel Neuropathy: continue Gabapentin Encouraged regular aerobic exercise for improved glycemic control Encouraged daily foot checks Encouraged lean protein snacks and to avoid foods high in sugar and simple carbohydrates Treatment Goals: A1c goal: <7% FBG goal: <130 2 hour post prandial goal: <180. LDL goal: <70 BP goal: <140/90 Assessment & Plan (02/05/2024 3:12 PM EDT): Controlled A1C 7.0 No med changes necessary at this time - Continue Trulicity 1.5mg SQ weekly - Continue Metformin 1,00mg BID - Continue canagliflozen 300mg daily Maintenance: Eye Exam: [facility] at [facility] 04/2022, next 04/2024 Diabetic foot exam: 01/2024, decreased sensation and referral to podiatry ASCVD 10 year risk: Calculate pending updated lipid panel Neuropathy: continue Gabapentin Encouraged regular aerobic exercise for improved glycemic control Encouraged daily foot checks Encouraged lean protein snacks and to avoid foods high in sugar and simple carbohydrates Treatment Goals: A1c goal: <7% FBG goal: <130 2 hour post prandial goal: <180. LDL goal: <70 BP goal: <140/90 Assessment & Plan (12/27/2023 9:47 AM EDT): Controlled A1C 6.7 No med changes necessary at this time - Continue Trulicity 1.5mg SQ weekly - Continue Metformin 1,00mg BID - Continue canagliflozen 300mg daily - RTC in 3 months for f/u Maintenance: Eye Exam: [facility] at [facility] 04/2022 Diabetic foot exam: 06/2022, decreased sensation and referral to podiatry Microalbumin: Ordered today BMP: Ordered today ASCVD 10 year risk: Calculate pending updated lipid panel Neuropathy: continue Gabapentin Encouraged regular aerobic exercise for improved glycemic control Encouraged daily foot checks Encouraged lean protein snacks and to avoid foods high in sugar and simple carbohydrates Treatment Goals: A1c goal: <7% FBG goal: <130 2 hour post prandial goal: <180. LDL goal: <70 BP goal: <140/90 Assessment & Plan (11/06/2023 3:03 PM EST): Controlled A1C 7.0 No med changes necessary at this time - Continue Trulicity 1.5mg SQ weekly - Continue Metformin 1,00mg BID - Continue canagliflozen 300mg daily - RTC in 3 months for f/u Maintenance: Eye Exam: [facility] at [facility] 04/2022 Diabetic foot exam: 06/2022, decreased sensation and referral to podiatry Microalbumin: Ordered today BMP: Ordered today ASCVD 10 year risk: Calculate pending updated lipid panel Neuropathy: continue Gabapentin Encouraged regular aerobic exercise for improved glycemic control Encouraged daily foot checks Encouraged lean protein snacks and to avoid foods high in sugar and simple carbohydrates Treatment Goals: A1c goal: <7% FBG goal: <130 2 hour post prandial goal: <180. LDL goal: <70 BP goal: <140/90 Assessment & Plan (06/14/2023 6:06 AM EDT): Much improved A1C 6.9 No med changes necessary at this time - Continue trulicity 1.5mg SQ weekly - Continue metforming 1,00mg b.i.d - Continue canagliflozen 300mg daily - RTC in 3 months for f/u Maintenance: Eye Exam: [facility] at [facility] 04/2022 Diabetic foot exam: 06/2022, decreased sensation and referral to podiatry Microalbumin: Ordered today BMP: Ordered today ASCVD 10 year risk: Calculate pending updated lipid panel Neuropathy: continue Gabapentin Encouraged regular aerobic exercise for improved glycemic control Encouraged daily foot checks Encouraged lean protein snacks and to avoid foods high in sugar and simple carbohydrates Treatment Goals: A1c goal: <7% FBG goal: <130 2 hour post prandial goal: <180. LDL goal: <70 BP goal: <140/90 Assessment & Plan (05/22/2023 4:15 PM EDT): - Lab Results Component Value Date HGBA1C 8.5 (H) 04/07/2023 HGBA1C 8.5 (H) 02/05/2021 - Lab Results Component Value Date MICROALBUR 0.7 03/10/2022 CREATININE 0.58 04/07/2023 - Diabetic eye exam: last check 04/2022 - Diabetic foot exam: referred to podiatry 10/06 - Extensive discussion about lifestyle modifications - Continue invokana 300, metformin 1000 BID, trulicity 1.5mg weekly, I added today glipizide 10mg ER F/u with PCP Assessment & Plan (10/06/2022 9:20 AM EST): Much improved A1C 6.9 No med changes necessary at this time - Continue trulicity 1.5mg SQ weekly - Continue metforming 1,00mg b.i.d - Continue canagliflozen 300mg daily - RTC in 3 months for f/u Maintenance: Eye Exam: [facility] at [facility] 04/2022 Diabetic foot exam: 06/2022, decreased sensation and referral to podiatry Microalbumin: Ordered today BMP: Ordered today ASCVD 10 year risk: Calculate pending updated lipid panel Neuropathy: continue Gabapentin Encouraged regular aerobic exercise for improved glycemic control Encouraged daily foot checks Encouraged lean protein snacks and to avoid foods high in sugar and simple carbohydrates Treatment Goals: A1c goal: <7% FBG goal: <130 2 hour post prandial goal: <180. LDL goal: <70 BP goal: <140/90 Assessment & Plan (10/06/2022 9:18 AM EST): Much improved A1C 6.9 No med changes necessary at this time - Continue trulicity 1.5mg SQ weekly - Continue metforming 1,00mg b.i.d - Continue canagliflozen 300mg daily - RTC in 3 months for f/u Maintenance: Eye Exam: [facility] at [facility] 04/2022 Diabetic foot exam: 06/2022, decreased sensation and referral to podiatry Microalbumin: Ordered today BMP: Ordered today ASCVD 10 year risk: Calculate pending updated lipid panel Neuropathy: continue Gabapentin Encouraged regular aerobic exercise for improved glycemic control Encouraged daily foot checks Encouraged lean protein snacks and to avoid foods high in sugar and simple carbohydrates Treatment Goals: A1c goal: <7% FBG goal: <130 2 hour post prandial goal: <180. LDL goal: <70 BP goal: <140/90 Plantar fasciitis 09/24/2014 Backache 06/30/2014 Assessment & Plan (01/17/2024 1:19 PM EDT): Most likely muscular/lumbar spasm? /DJD spine? Order Toradol 30 mg IM now, can repeat daily x3 days prn for severe pain. Start Meloxicam + Flexeril x 1 week. She will do lumbar stretching exercises daily for 1-2w, use heat pad 5 min prior to exercises, can use diclofenac gel after. Allergic rhinitis 02/15/2013 Hyperlipidemia 02/15/2013 Iron deficiency 02/15/2013 Recurrent depression 08/10/2012 Assessment & Plan (12/27/2023 9:46 AM EDT): Speak with psych prescriber about insomnia, ask for their recommendations Sleep hygeine Resolved Problems Problem Noted Date Diagnosed Date Resolved Date Viral gastroenteritis 10/24/20242024 Assessment & Plan (10/24/2024 2:11 PM EST): -likely norovirus due to exposure -no evidence of dehydration on exam -no evidence of acute abdomen -supportive care with fluids, recommended zero sugar drinks. -ER precautions discussed Annual physical exam 02/05/2024 025 Diabetes due to underlying c ondition w oth circulatory comp 06/09/2023 10/30/2024 Encounters Date Type Department Care Team Description 11/19/2024 1:15 PM EST Office Visit [facility] MEDICINE [address] [place] [address] Lissy Gracia MD Fibromyalgia (Primary Dx); Chronic migraine without aura without status migrainosus, not intractable 11/19/2024 8:00 AM EST Office Visit [facility] ADULT DENTAL [address] [place], [place] [id number] Ciro Rockwell DDS Retained dental root (Primary Dx) 11/19/2024 Travel 11/19/2024 Refill [facility] MEDICINE [address] [place] [id number] Lissy Gracia MD 11/19/2024 Patient Outreach [address] [address] Lissy Gracia MD Transition Of Care (Tcm) 11/18/2024 9:00 AM EST Office Visit [address] [address] Irene Singletary MD Chronic migraine without aura without status migrainosus, not intractable (Primary Dx); Anxiety 11/18/[address] [address] Lissy Gracia MD Lab Orders 11/18/2024 Patient Outreach [address] [address] Lissy Gracia MD Care Coordination ([facility] Ammy Ziegler telephone call outreach) 11/18/2024 Travel 11/15/[address] [address] Reinaldo Persaud, LIILANE Care Management (C3- f/u call) 11/14/2024 1:40 PM EST Office Visit [facility] WALK-IN CENTER [address] [place] [id number] Candice Moreland DO Mild persistent asthma without complication (Primary Dx) 11/12/2024 1:15 PM EST Office Visit [address] [address] Lissy Gracia MD Chronic migraine without aura without status migrainosus, not intractable (Primary Dx) 11/12/2024 Travel 11/11/2024 11:00 AM EST Office Visit [address] [address] Lissy Gracia MD Fibromyalgia (Primary Dx); Thrush, oral 11/11/2024 9:15 AM EST Office Visit [address] [address] Irene Singletary MD Chronic migraine without aura without status migrainosus, not intractable (Primary Dx); Anxiety 11/08/2024 Patient Outreach [facility] [place] [address] Lissy Gracia MD Care Coordination ([facility] Ammy Ziegler telephone call outreach) 11/07/2024 1:20 PM EST Office Visit [facility] [address] Candice Moreland DO Mild persistent asthma with acute exacerbation (Primary Dx) 11/07/2024 9:00 AM EST Office Visit [facility] MEDICINE [address] [place], [place] [address] [address] Irene Singletary MD Chronic migraine without aura without status migrainosus, not intractable (Primary Dx); Anxiety 11/07/2024 Patient Outreach [address] [address] Lissy Gracia MD 11/07/2024 Travel 11/05/2024 1:15 PM EST Office Visit [facility] MEDICINE [address] [place], [place] [address] [address] Lissy Gracia MD Fibromyalgia (Primary Dx); Chronic migraine without aura without status migrainosus, not intractable; Tendency toward bleeding easily (CMS/HCC) 11/05/2024 Telephone [facility] [place] [address] Reinaldo Persaud RN Care Management (C3- initial assessment/ enrollment.) 11/05/2024 Patient Outreach [address] [place] [address] Lissy Gracia MD Care Coordination (C3 [facility] Ammy Ziegler telelphone call outreach) 11/05/2024 Refill [facility] [place] [place] [phone] Lissy Gracia MD Bronchitis 11/05/2024 Travel 10/31/2024 9:30 AM EST Office Visit [address] [place] [address] Irene Singletary MD Chronic migraine without aura without status migrainosus, not intractable (Primary Dx); Anxiety 10/31/2024 Travel 10/30/2024 Patient Outreach [address] [address] Lissy Gracia MD Care Coordination (C3 -[facility] Ammy Ziegler telephone call outreach) 10/30/[address] [address] Reinaldo Persaud RN Care Management (C3- chart review) 10/30/2024 Orders Only [facility] External Provider, [facility] 10/29/2024 8:40 AM EST Office Visit [facility] WALKIN [address] [address] Rosana Cotton MD Upper back pain (Primary Dx); Chronic cough 10/29/[address] [address] Anitha Reed RN Results 10/28/2024 11:00 AM EST Office Visit [address] [address] Lissy Gracia MD Fibromyalgia (Primary Dx); Bleeding from the ear, left; Chronic migraine without aura without status migrainosus, not intractable 10/28/2024 9:00 AM EST Office Visit [address] [address] Irene Singletary MD Chronic migraine without aura without status migrainosus, not intractable (Primary Dx); Anxiety 10/28/2024 Travel 10/24/2024 2:00 PM EST Office Visit [facility] WALK-IN [address] [address] Rosana Cotton MD Viral gastroenteritis (Primary Dx); Cough in adult patient 10/24/2024 10:30 AM EST Office Visit [address] [address] Irene Singletary MD Chronic migraine without aura without status migrainosus, not intractable (Primary Dx); Anxiety 10/24/2024 Travel 10/24/[address] [address] Lissy Gracia MD Nurse Triage 10/23/2024 Orders Only GENERIC EXTERNAL DATA DEPARTMENT Provider, Generic External Data 10/22/2024 2:30 PM EST Office Visit [facility] OPTOMETRY [address] [place] [address] Marshall, Betty, OD Diabetes type 2, no ocular involvement ([facility]) (Primary Dx); Bilateral retinal lattice degeneration; Combined 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-related cataract of both eyes; Presbyopia 10/22/2024 1:15 PM EST Office Visit [facility] MEDICINE [address] [place] [address] Lissy Gracia MD Chronic migraine without aura without status migrainosus, not intractable (Primary Dx); Type 2 diabetes mellitus without complication, without long-term current use of insulin ([facility]); Cellulitis of head except face; Mild persistent asthma without complication; Diabetes due to underlying condition w oth circulatory comp ([facility]) 10/22/2024 Orders Only GENERIC EXTERNAL DATA DEPARTMENT Provider, Generic External Data 10/22/2024 Travel 10/21/2024 Telephone [facility] MEDICINE [address] [place] [address] Susana Casillas MA Pain Group Appt 09/26/2024 Telephone [facility] MEDICINE [address] [place] [phone] Lissy Gracia MD 09/23/2024 Orders Only GENERIC EXTERNAL DATA DEPARTMENT Provider, Generic External Data 09/19/2024 2:40 PM EST Office Visit [facility] WALK-IN CENTER [address] [place] [address] Rosana Cotton MD Acute URI (Primary Dx) 09/19/2024 Refill [facility] MEDICINE [address] [place] [address] Nazlini, Carola, QUILLER MACHINE FIXER Bronchitis 09/17/2024 2:15 PM EST Office Visit [facility] MEDICINE [address] [place] [address] Lissy Gracia MD Chronic migraine without aura without status migrainosus, not intractable (Primary Dx); Anxiety; Lipoma of face; Muscle pain 09/17/2024 Travel 09/16/2024 9:00 AM EST Office Visit [facility] MEDICINE [address] [place] [address] Irene Singletary MD Chronic migraine without aura without status migrainosus, not intractable (Primary Dx); Anxiety 09/16/2024 Travel 09/11/2024 2:00 PM EST Office Visit [facility] ADULT DENTAL [address] [place] [phone] Wendi Pedroza Dental plaque (Primary Dx); Dental calculus; Tartar deposits on teeth 09/10/2024 1:15 PM EST Office Visit [facility] MEDICINE [address] [place] [address] Lissy Gracia MD Chronic migraine without aura without status migrainosus, not intractable (Primary Dx); Type 2 diabetes mellitus with hyperglycemia, without long-term current use of insulin ([facility]); Recurrent depression ([facility]); Oral candidiasis 09/10/[address] [address] Lissy Gracia MD 09/10/2024 Travel 09/09/2024 10:00 AM EST Office Visit [address] [address] Irene Singletary MD Chronic migraine without aura without status migrainosus, not intractable (Primary Dx); Anxiety 09/09/2024 Refill [facility] MOBILE VACCINE CLINIC [address] [place] [address] Lissy Gracia MD Other hyperlipidemia 09/09/2024 Travel 09/09/2024 Patient Outreach [address] [address] Lissy Gracia MD Transition Of Care (Tcm) 09/06/[address] [address] Lissy Gracia MD 09/06/2024 Orders Only GENERIC EXTERNAL DATA DEPARTMENT Provider, Generic External Data 09/05/2024 9:45 AM EST Office Visit [address] [address] Irene Singletary MD Chronic migraine without aura without status migrainosus, not intractable (Primary Dx); Anxiety 09/05/2024 Travel 09/03/2024 10:30 AM EST Office Visit [facility] [place] [address] Irene Singletary MD Chronic migraine without aura without status migrainosus, not intractable (Primary Dx); Anxiety 09/03/2024 Travel 09/02/2024 9:00 AM EST Office Visit [facility] [address] [place] [address] Irene Singletary MD Chronic migraine without aura without status migrainosus, not intractable (Primary Dx); Anxiety 09/02/2024 Orders Only [facility] [place] [address] Lissy Gracia MD Mild persistent asthma without complication (Primary Dx) 09/02/2024 Travel 08/30/2024 1:35 PM EST Nurse Only [facility] [place] [id number] Amanda Morrison LPN Encounter for immunization (Primary Dx) 08/30/2024 Telephone [facility] [place] [address] Lissy Gracia MD Referral 08/30/2024 Orders Only [facility] External Provider, [facility] 08/29/2024 9:15 AM EST Office Visit [facility] [place] [address] Irene Singletary MD Chronic migraine without aura without status migrainosus, not intractable (Primary Dx); Anxiety 08/29/2024 Refill [facility] [place] [address] Lissy Gracia MD 08/29/2024 Travel 08/28/2024 11:30 AM EST Office Visit [facility] [place] [address] Lissy Gracia MD Orthopnea (Primary Dx); Type 2 diabetes mellitus without complication, without long-term current use of insulin ([facility]); Dyspnea on exertion; Mild persistent asthma without complication; Cervical radiculopathy; Primary hypertension; Gastroesophageal reflux disease without esophagitis; Iron deficiency 08/28/2024 Travel 08/27/2024 Travel 08/26/2024 9:00 AM EST Office Visit [facility] WALK-IN CENTER [address] [place] [phone] Roscoe Alfaro MD Tongue burning sensation (Primary Dx) 08/26/2024 Telephone [facility] WALK-IN CENTER [address] [place] [address] Roscoe Alfaro MD 08/22/2024 Telephone [facility] MEDICINE [address] [place] [address] Lissy Gracia MD Medication Question 08/21/2024 10:00 AM EST Office Visit [facility] WALKIN [address] [address] Candice Moreland DO Chest pain, unspecified type (Primary Dx); Essential hypertension; Type 2 diabetes mellitus without complication, without long-term current use of insulin ([facility]) 08/21/2024 Orders Only GENERIC EXTERNAL DATA DEPARTMENT Provider, Generic External Data 08/19/2024 1:30 PM EST Office Visit [facility] ADULT DENTAL [address] [place] [phone] Romina Frank DDS Encounter for dental examination (Primary Dx); Dental calculus; Dental plaque; Periodontal disease 08/19/2024 Refill [facility] MEDICINE [address] [place] [phone] Adriana Ramesh MD Type 2 diabetes mellitus with hyperglycemia, without long-term current use of insulin ([facility]) 08/19/2024 Refill [facility] MEDICINE [address] [place] [address] Lissy Gracia MD Type 2 diabetes mellitus with hyperglycemia, without long-term current use of insulin ([facility]) from Last 3 Months Immunizations Name Administration Dates Next Due HepB-CpG 12/25/2023,08/31/2020 INFLUENZA INJECTABLE QUADRIV ALANT CCIIV4 MDCK Multi-dose vial 08/14/2019 Influenza Injectable Quadriv alant Preservative Free IIV4 MDCK 08/03/2022,08/20/2020 Influenza injectable quadriv alent preservative free 11/24/2023 Influenza, IIV3, injectable 06/30/2014 Influenza, Split (incl. art fied surface antigen) 08/10/2012 Pfizer Covid-19 Vaccine 12+ 11/24/2023 Pneumococcal Conjugate PCV 20 08/30/2024 Tdap 08/30/2024,06/30/2014,11/23/2009 Zoster, Recombinant 12/25/2023 Social History Tobacco Use Types Packs/Day Years Used Date Smoking Tobacco: Never Passive Smoke Exposure: Never Smokeless Tobacco: Never Tobacco Cessation:Counseling Given: Not Answered Alcohol Use Standard Drinks/Week Comments Never 0 [...] is your housing situation today? I have priscilatrino kruse 08/10/[address] you [...] Orientation Straight 08/15/2022 10 :20 AM EDT Last Filed Vital Signs Vital Sign Reading Time Taken Comments Blood Pressure 138/88 11/19/2024 7:59 AM EST Pulse 89 11/14/2024 1:30 PM EST Temperature 36.2 ??C (97.1 ??F) 11/14/2024 1:30 PM ES T Respiratory Rate 19 11/14/2024 1:30 PM EST Oxygen Saturation 98% 11/14/2024 1:30 PM EST Inhaled Oxygen Concentration - - Weight 77.7 kg (171 lb 6.4 oz) 11/14/2024 1:30 P M EST Height 167.6 cm (5' 6 ) 08/28/2024 11:36 AM EST Body Mass Index 27.66 08/28/2024 11:36 AM EST Plan of Treatment Upcoming Encounters Date Type Department Care Team (Late st Contact Info) Description 11/28/2024 9:00 AM EST Office Visit [facility] ADULT DENTAL [address] [place] [address] Wendi Pedroza 2024 9:00 AM EST Office Visit [facility] ADULT DENTAL [address] [place] [address] Wendi Pedroza 12/16/2024 3:45 PM EST Office Visit [facility] MEDICINE [address] [place] [phone] Lissy Gracia MD [address] [place] [address] Health Maintenance Due Date Last Done Comments CT Colonography 1975 Colonoscopy 1975 Colorectal Cancer Screening 1975 FIT DNA/Cologuard 1975 FIT 1975 FOBT 1975 Sigmoidoscopy 1975 Family Planning (PISQ) 1988 Zoster Vaccines (2 of 2) 02/19/2024 12/25/2023 COVID-19 Vaccine ( season) 2024 11/24/2023, 02/10/2022, 03/29/2021, Additional history exists Influenza Vaccine (#1) 2024 , 08/03/2022, 08/20/2020, Additional history exists Diabetes: Urine Protein Screening 11/06/2024 11/06/2023, 04/07/2023, 03/10/2022, Additional history exists Cervical Cancer Screening 12/06/2024 HPV/Cotest 12/06/2024 09/12/2022 Pap Smear 12/06/2024 11/22/2023, 09/12/2022 Lipid Panel 12/24/2024 12/25/2023, 03/17, 02/05/2021, Additional history exists Mammogram 01/10/2025 01/11/2024, 06/16, 11/01/2018, Additional history exists Diabetes: Hemoglobin A1C 01/20/2025 025, 08/21/2024, 02/05/2024, Additional history exists Alcohol/Substance Use Screening 02/04/2025 02/05/2024 Depression Screening 02/04/2025 02/05/2024, 02/05/20 24 SDOH Screening 02/04/2025 02/05/2024 Dental Oral Exam 02/17/2025 08/19/2024, , 10/12/2017, Additional history exists Dental Prophylaxis 03/12/2025 09/11/2024, 0 04/10/2019, 03/27/2018 Diabetes: Foot Exam 08/15/2025 08/15/2024, 08/15/2024, 08/15/2024, Additional history exists Dental X-Ray: Bitewings 08/20/2025 08/19/20 24, 10/12/2017, 11/27/2013 Tobacco Screening 11/19/2025 11/19/2024 Eye Exam 10/22/2026 10/22/2024, 01/0 04/2025, 10/22/2024, Additional history exists Dental X-Ray: Full Mouth 08/20/2027 024, 10/12/2017, 11/27/2013 DTaP/Tdap/Td Vaccines (4 - Td or Tdap) 08/30/2034 08/30/2024, 06/30/2014, 11/23/2009 RSV Patients and Patients Aged 60 years or older (1 - 1-dose 75+ series) 2048 HIV Screening Completed 06/16/2020 Hepatitis C Screening Completed 06/16/2020 Hepatitis B Vaccines Completed 12/25/2023, 08/31/20 20 Pneumococcal Vaccine: 50+ Years Completed 08/30/2024 HIB Vaccines Aged Out No longer eligi ble based on patient's age to complete this topic HPV Vaccines Aged Out No longer eligi ble based on patient's age to complete this topic Hepatitis A Vaccines Aged Out No long er eligible based on patient's age to complete this topic IPV Vaccines Aged Out No longer eligi ble based on patient's age to complete this topic Meningococcal Vaccine Aged Out No josette david eligible based on patient's age to complete this topic RSV under 20 months Aged Out No longe r eligible based on patient's age to complete this topic Rotavirus Vaccines Aged Out No longer eligible based on patient's age to complete this topic Procedures Procedure Name Priority Date/Time Associated Diagnosis Comments ADJUNCTIVE GENERAL SERVICES - PROFESSIONAL VISITS - CASE PRESENTATION, SUBSEQUENT TO DETAILED AND EXTENSIVE TREATMENT PLANNING Routine 11/19/2024 8:00 AM EST 16 EXTRACTION, ERUPTED TOOTH REQUIRING REMOVAL OF BONE AND/OR SECTIONING OF TOOTH, AND INCLUDING ELEVATION OF MUCOPERIOSTEAL FLAP IF INDICATED Routine 11/19/2024 8:00 AM EST POCT INFLUENZA B (ID NOW RAPID MOLECULAR) Routine 11/14/2024 1:52 PM EST Mild persistent asthma without complication POCT INFLUENZA A (ID NOW RAPID MOLECULAR) Routine 11/14/2024 1:52 PM EST Mild persistent asthma without complication POCT RAPID STREP A Routine 11/14/2024 1: 52 PM EST Mild persistent asthma without complication POCT RAPID COVID ANTIGEN Routine 11/14/2024 1:52 PM EST Mild persistent asthma without complication POCT INFLUENZA B (ID NOW RAPID MOLECULAR) Routine 11/07/2024 1:25 PM EST Mild persistent asthma with acute exacerbation POCT INFLUENZA A (ID NOW RAPID MOLECULAR) Routine 11/07/2024 1:25 PM EST Mild persistent asthma with acute exacerbation POCT RAPID COVID ANTIGEN Routine 11/07/2024 1:25 PM EST Mild persistent asthma with acute exacerbation XR CHEST 2 VIEWS Routine 10/30/2024 1:42 AM EST SARS COV2/INFLUENZA A/B AND RSV RNA QL NAAT Routine 10/30/2024 1:09 AM EST CBC WITH AUTO DIFFERENTIAL Routine 10/28/2024 12:08 PM EST Bleeding from the ear, left PROTHROMBIN TIME-INR Routine 10/28/2024 12:08 PM EST Bleeding from the ear, left POCT INFLUENZA B (ID NOW RAPID MOLECULAR) Routine 10/24/2024 1:48 PM EST Cough in adult patient POCT INFLUENZA A (ID NOW RAPID MOLECULAR) Routine 10/24/2024 1:48 PM EST Cough in adult patient POCT RAPID COVID ANTIGEN Routine 10/24/2024 1:40 PM EST Cough in adult patient HIGH SENSITIVITY TROPONIN I Routine 10/23/2024 10:11 PM EST IMMUNOGLOBULIN E Routine 10/22/2024 3:49 PM EST COMPREHENSIVE METABOLIC PANEL Routine 10/22/2024 3:49 PM EST Type 2 diabetes mellitus without complication, without long-term current use of insulin (CMS/HCC) HEMOGLOBIN A1C Routine 10/22/2024 3:49 PM EST Type 2 diabetes mellitus without complication, without long-term current use of insulin (CMS/HCC) IMMUNOGLOBULIN E Routine 09/23/2024 2:26 PM EST RESPIRATORY ALLERGY PROFILE REGION I Routine 09/23/2024 2:26 PM EST CBC WITH AUTO DIFFERENTIAL Routine 09/23/2024 2:26 PM EST POCT INFLUENZA B (ID NOW RAPID MOLECULAR) Routine 09/19/2024 2:57 PM EST Acute URI POCT INFLUENZA A (ID NOW RAPID MOLECULAR) Routine 09/19/2024 2:57 PM EST Acute URI POCT RAPID STREP A Routine 09/19/2024 2: 57 PM EST Acute URI POCT RAPID COVID ANTIGEN Routine 09/19/2024 2:57 PM EST Acute URI ORAL HYGIENE INSTRUCTIONS Routine 09/11/2024 2:00 PM EST Dental plaque Dental calculus Tartar deposits on teeth ADJUNCTIVE GENERAL SERVICES - PROFESSIONAL VISITS - CASE PRESENTATION, SUBSEQUENT TO DETAILED AND EXTENSIVE TREATMENT PLANNING Routine 09/11/2024 2:00 PM EST FULL MOUTH DEBRIDEMENT TO ENABLE A COMPREHENSIVE ORAL EVALUATION AND DIAGNOSIS ON A SUBSEQUENT VISIT Routine 09/11/2024 2:00 PM EST Dental plaque Dental calculus Tartar deposits on teeth PROPHYLAXIS - ADULT Routine 09/11/2024 2 :00 PM EST Dental plaque Dental calculus Tartar deposits on teeth XR CHEST 1 VIEW Routine 09/06/2024 5:30 AM EST STREP A NUCLEIC ACID Routine 09/06/2024 2:32 AM EST B TYPE NATRIURETIC PEPTIDE (BNP) Routine 09/06/2024 2:31 AM EST HIGH SENSITIVITY TROPONIN I Routine 09/06/2024 2:31 AM EST COMPREHENSIVE METABOLIC PANEL Routine 09/06/2024 2:31 AM EST SLIDE REVIEW Routine 09/06/2024 2:31 AM EST CBC WITH AUTO DIFFERENTIAL Routine 09/06/2024 2:31 AM EST HIGH SENSITIVITY TROPONIN I Routine 08/30/2024 7:13 AM EST XR CHEST 1 VIEW Routine 08/30/2024 4:15 AM EST HIGH SENSITIVITY TROPONIN I Routine 08/30/2024 3:57 AM EST B TYPE NATRIURETIC PEPTIDE (BNP) Routine 08/30/2024 3:57 AM EST LIPASE Routine 08/30/2024 3:57 AM EST MAGNESIUM Routine 08/30/2024 3:57 AM EST COMPREHENSIVE METABOLIC PANEL Routine 08/30/2024 3:57 AM EST CBC WITH AUTO DIFFERENTIAL Routine 08/30/2024 3:57 AM EST COMPREHENSIVE METABOLIC PANEL Routine 08/28/2024 12:10 PM EST Orthopnea B TYPE NATRIURETIC PEPTIDE (BNP) Routine 08/28/2024 12:10 PM EST Orthopnea POCT GLUCOSE Routine 08/28/2024 11:59 AM EST Type 2 diabetes mellitus without complication, without long-term current use of insulin ([facility]) ECG 12-LEAD Routine 08/21/2024 2:00 PM EST Chest pain, unspecified type SARS COV2/INFLUENZA A/B AND RSV RNA QL NAAT Routine 08/21/2024 1:17 PM EST POCT GLYCATED HEMOGLOBIN, TOTAL Routine 08/21/2024 12:00 PM EST Type 2 diabetes mellitus without complication, without long-term current use of insulin (CMS/HCC) POCT GLUCOSE Routine 08/21/2024 12:00 PM EST Type 2 diabetes mellitus without complication, without long-term current use of insulin ([facility]) XR CHEST 2 VIEWS Routine 08/21/2024 11:3 0 AM EST ADJUNCTIVE GENERAL SERVICES - PROFESSIONAL VISITS - CASE PRESENTATION, SUBSEQUENT TO DETAILED AND EXTENSIVE TREATMENT PLANNING Routine 08/19/2024 1:30 PM EST Encounter for dental examination Dental calculus Dental plaque Periodontal disease DIAGNOSTIC - DIAGNOSTIC IMAGING - INTRAORAL - COMPREHENSIVE SERIES OF RADIOGRAPHIC IMAGES Routine 08/19/2024 1:30 PM EST Encounter for dental examination Dental calculus Dental plaque Periodontal disease COMPREHENSIVE ORAL EVALUATION - NEW OR ESTABLISHED PATIENT Routine 08/19/2024 1:30 PM EST Encounter for dental examination Dental calculus Dental plaque Periodontal disease BI MAMMOGRAM SCREENING TOMOSYNTHESIS BILATERAL Routine 01/11/2024 2:45 PM EDT LIPID PANEL, STANDARD Routine 12/25/2023 9:46 AM EDT Diabetes due to underlying condition w oth circulatory comp ([facility]) PAP SMEAR Routine 11/22/2023 1:51 PM EST ALBUMIN, RANDOM URINE W/CREATININE Routine 11/06/2023 2:33 PM EST Diabetes due to underlying condition w oth circulatory comp ([facility]) HPV MRNA E6/E7 REFLEX TO HPV 16, 18/45 Routine 09/12/2022 9:53 AM EST ZZZ HISTORICAL HEPATITIS C ANTIBODY Routine 06/16/2020 12:35 PM EDT ZZZ HISTORICAL HIV AB/AG Routine 06/16/2020 12:35 PM EDT from Last 3 Months or Most Recently Relevant to Health Maintenance Results * Influenza B (ID NOW Rapid Molecular) (11/14/2024 1:52 PM EST) Only the most recent of4 resultswithin the time period is included. Influenza B Negative Negative, Indeterminate [facility] Swab 11/14/2024 1:52 PM EST Candice Aniceto DO POINT OF CARE TEST ENTER/GOPAL T ORDERABLES Final Result Performing Organization Address [facility] Co de Phone Number [facility] [address] [place] [phone] * Influenza A (ID NOW Rapid Molecular) (11/14/2024 1:52 PM EST) Only the most recent of4 resultswithin the time period is included. Influenza A Negative Negative, Indeterminate [facility] Swab 11/14/2024 1:52 PM EST Candice Aniceto DO POINT OF CARE TEST ENTER/GOPAL T ORDERABLES Final Result Performing Organization Address [facility] Number [facility] [address] [place] [phone] * POCT Rapid COVID Ag (11/14/2024 1:52 PM EST) Only the most recent of4 resultswithin the time period is included. Pathologist [facility] Rapid COVID Ag Negative [facility] Swab 11/14/2024 1:52 PM EST Candice Moreland DO POINT OF CARE TEST ENTER/GOPAL T ORDERABLES Final Result Performing Organization Address [facility] de Phone Number [facility] [address] [place] [phone] * POCT rapid strep A manually resulted (11/14/2024 1:52 PM EST) Only the most recent of2 resultswithin the time period is included. Rapid Strep A Screen Negative Negative, None Detected [facility] Swab 11/14/2024 1:52 PM EST Candice Aniceto DO POINT OF CARE TEST ENTER/GOPAL T ORDERABLES Final Result [facility] [address] [place] [phone] * XR Chest 2 Views (10/30/2024 1:42 AM EST) Only the most recent of2 resultswithin the time period is included. Anatomical Region Laterality Modality Chest Radiographic Liss ging 10/30/2024 1:42 AM EST Narrative 10/30/2024 1:44 AM EST ? [facility] ?[address] ?[place] [address] ?XRay Report ? Signed ? Patient: Irene Garcia ?MR#: ?? [id number] ? : 1975 ?Acct:[id number] ? Age/Sex: 48 / F ?ADM Date: 10/30/24 ? Loc: HO.ED ? Attending Dr: ? Ordering Physician: Generic ED Physician ?? Date of Service: 10/30/24 ?? Procedure(s): XR chest 2V ?? Accession Number(s): [id number] ? cc: Generic ED Physician; [facility] ? CLINICAL HISTORY: cough, lung pain ? 2 view chest x-ray ? Comparison: CR - XR CHEST 2V - 10/23/24 22:19 EST ? Findings: ?? Lungs are well inflated. ?? Mediastinal contours, cardiac silhouette, and vasculature are within ?? normal limits. ?? Lungs are clear. ?? No pleural effusion. ? IMPRESSION: ?? 1. No acute findings. ? This document has been electronically signed by: Cristian Rodrigez MD on ?? 10/30/2024 01:42:01 ? Dictated By: ?Cristian Rodrigez MD ? Signed By: ?<Electronically signed by Cristian Rodrigez MD in OV> ? 10/30/24 0143 ? DD/ 0142 ? TD/TT: 10/30/24 0142 ? Restaurant Inspector: ? Procedure Note Bayron, John - 10/30/2024 [id number] [place] [address] XRay Report Signed Patient: Shamar MundoJonnaJacquie#: [id number] : 1975Acct:[id number] Age/Sex: 48 / FADM Date: 10/30/24 Loc: HO.ED Attending Dr: Ordering Physician: Generic ED Physician Date of Service: 10/30/24 Procedure(s): XR chest 2V Accession Number(s): [id number] cc: Generic ED Physician; [facility] CLINICAL HISTORY: cough, lung pain 2 view chest x-ray Comparison: CR - XR CHEST 2V - 10/23/24 22:19 EST Findings: Lungs are well inflated. Mediastinal contours, cardiac silhouette, and vasculature are within normal limits. Lungs are clear. No pleural effusion. IMPRESSION: 1. No acute findings. This document has been electronically signed by: Cristian Rodrigez MD on 10/30/2024 01:42:01 Dictated By: Cristian Rodrigez MD Signed By: <Electronically signed by Cristian Rodrigez MD in OV> 10/30/24 014 DD/ 1 TD/TT: 10/30/24141 Restaurant Inspector: [facility] External Provider IMG XR PROCEDURES Final Result * SARS-CoV-2 RNA, Influenza A/B, and RSV RNA, Ql NAAT (10/30/2024 1:09 AM EST) Only the most recent of2 resultswithin the time period is included. Influenza A PCR NEGATIVE Negative [facility] Influenza B PCR NEGATIVE Negative [facility] Resp Syncy Virus RNA Qual PCR NEGATIVE Negative [facility] SARS COV2 PCR NEGATIVE Negative [facility] Comment:All test results mus t be correlated with clinical findings.Negative results do not preclude SARS-CoV2, influenza Avirus, influenza B virus and/or RSV infectionand should not be used as the sole basis for treatment orother patient management decisions. Negative results must becombined with clinical observations, patient history, andepidemiological information.This test has not been evaluated for monitoring treatment ofinfection.This test has been authorized by the FDA under an EmergencyUse Authorization (EUA) for use by authorized laboratories.Testing performed on the DakimXpert utilizingreal-time RT-PCR.All SARS CoV2 and positive influenza A/B results arereported to [facility]. 10/30/2024 1:09 AM EST 10/30/2024 1:12 AM EST us Generic External Data Provider LAB MICROBIOLOGY - GENERAL ORDERABLES Final Result [facility] [address] [place] [phone] * (ABNORMAL) CBC auto differential (10/28/2024 12:08 PM EST) Only the most recent of4 resultswithin the time period is included. White Blood Count 6.1 4.8 - 10.8 X10*3/uL [facility] Red Blood Count 4.85 4.20 - 5.50 X10*6/uL [facility] Hemoglobin 12.1 12.0 - 16.0 g/dl [facility] Hematocrit 37.4 37.0 - 47.0 % [facility] Mean Corpuscular Volume 77.1(L) 80.0 - 98.0 fL [facility] Mean Corpuscular Hemoglobin 24.9(L) 27.0 - 33.0 pg [facility] Mean Corpuscular HGB Conc 32.4 31.0 - 35.0 g/dl [facility] Red Cell Distribution Width 15.3 11.0 - 16.0 % [facility] Platelet Count 369 160 - 400 X10*3/uL [facility] Mean Platelet Volume 9.6 9.4 - 12.3 fL [facility] Neutrophils Percent Auto 56.2 45 - 73 % [facility] Imm Gran Pct Auto 0.3 0.0 - 0.4 % [facility] Lymphocytes Percent Auto 34.7 20 - 40 % [facility] Monocytes Percent Auto 7.1 2 - 11 % [facility] Eosinophils Percent Auto 1.2 0 - 4 % [facility] Basophils Percent Auto 0.5 0 - 2 % [facility] NRBC Pct Auto 0.0 0.0 - 0.2 /100WBC [facility] Neutrophils Absolute Auto 3.4 2.0 - 8.3 x10*3/uL [facility] Imm Gran Abs Auto 0.02 0.00 - 0.03 X10*3/uL [facility] Lymphocytes Absolute Auto 2.1 1.2 - 4.9 X10*3/uL [facility] Monocytes Absolute Auto 0.4 0.1 - 1.2 X10*3/uL [facility] Eosinophils Absolute Auto 0.1 0.0 - 0.4 X10*3/uL [facility] Basophils Absolute Auto 0.0 0.0 - 0.2 X10*3/uL [facility] NRBC Abs Auto 0.000 0.0 - 0.012 X10*3/uL [facility] Blood Venous blood specimen / Unknown 10/28/2024 12:08 PM EST 10/28/2024 1:08 PM EST us Lissy Gracia MD LAB BLOOD ORDERABLES Final Res ult [facility] [address] [place] [address] [phone] * (ABNORMAL) Prothrombin Time-INR (10/28/2024 12:08 PM EST) Prothrombin Time 10.8(L) 10.9 - 12.4 SEC [facility] INTERNATIONAL NORM RATIO 0.9 0.9 - 1.1 [facility] Comment:INTERNATIONAL NORMAL IZED RATIO (INR) REFERENCE RANGES Reference RangeFor patients not on anticoagulant therapy: 0.9 - 1.1INR ranges for oral anticoagulanttherapy:For prevention and treatment of venous thrombosis and pulmonary embolism: 2.0 - 3.0For acute myocardial infarction with aspirin therapy: 2.0 - 3.0For acute myocardial infarction without aspirin therapy: 3.0 - 4.0For patients with mechanical prosthetic heart valves: 2.5 - 3.5 Blood Venous blood specimen / Unknown 10/28/2024 12:08 PM EST 10/28/2024 1:08 PM EST us Lissy Gracia MD LAB BLOOD ORDERABLES Final Res ult Performing Organization Address [facility]/ZIP Co de Phone Number [facility] [address] [place] [phone] * High Sensitivity Troponin I (10/23/2024 10:11 PM EST) Only the most recent of4 resultswithin the time period is included. TROPONIN I HIGH SENSITIVITY <2.7 <3.5 - 17.0 ng/L [facility] Comment:The Patino high sens itivity Troponin-I results should beused in conjunction with other diagnostic information suchas ECG, clinical observations and information, and patientsymptoms to aid in the diagnosis of [place]. 10/23/2024 10:1 1 PM EST 10/24/2024 1:15 AM EST us Generic External Data Provider LAB BLOOD ORDERAB LES Final Result Performing Organization Address [facility] Co de Phone Number [facility] [address] [place] [phone] * (ABNORMAL) Hemoglobin A1c (10/22/2024 3:49 PM EST) Hemoglobin A1c 8.7(H) <6.0 % [facility] Comment:Hemoglobin A1C Refer ence Range Adults: 4.8 - 6.0 % Non diabetic: < 6.0 % Goal: < 7.0 %Additional Action Suggested: > 8.0 %Note: Hemoglobin A1c results are invalid for patients with abnormal amounts of HbF. Blood transfusions may impact the HbA1c concentration in the patient sample. Estimated Average Glucose 203 mg/dL [facility] Comment:eAG = Estimated ave rage glucose which is %A1C expressed asaverage glucose, using the formula of the O9B-FrirrtkBqpxsmr Glucose study (ADAG), Diabetes Care, Vol.31,#8,May. 2007 Blood Venous blood specimen / Unknown 10/22/2024 3:49 PM EST 10/22/2024 5:46 PM EST us Lissy Gracia MD LAB BLOOD ORDERABLES Final Res ult Performing Organization Address [facility] de Phone Number [facility] [address] [place] [phone] * Immunoglobulin E (10/22/2024 3:49 PM EST) Only the most recent of2 resultswithin the time period is included. Immunoglobulin E 3 <VJ=792 kU/L [facility] Comment:THIS TEST WAS PERFOR MED AT:[address] [place] [phone] HEIN MD 10/22/2024 3:49 PM EST 10/22/2024 5:46 PM EST us Generic External Data Provider LAB BLOOD ORDERAB LES Final Result Performing Organization Address [facility] de Phone Number [facility] [address] [place] [phone] * (ABNORMAL) Comprehensive Metabolic Panel (10/22/2024 3:49 PM EST) Only the most recent of4 resultswithin the time period is included. Pathologist [facility] Sodium 137 135 - 145 mmol/L [facility] Potassium 3.9 3.3 - 5.1 mmol/L [facility] Chloride 109(H) 96 - 108 mmol/L [facility] Carbon Dioxide 23 22 - 29 mmol/L [facility] Anion Gap 9(L) 12 - 20 [facility] Urea Nitrogen (BUN) 15 9 - 16 mg/dL [facility] Creatinine, Serum 0.69 0.5 - 1.4 mg/dL [facility] Estimated Glomerular Filt Rate >60 [facility] Comment:Chronic Kidney Disea se: Estimated GFR < 60 mL/min/1.18p8Aqcbbj Kidney Disease: Estimated GFR < 15 mL/min/1.73m2 Glucose 182(H) 60 - 115 mg/dL [facility] Calcium 9.0 8.4 - 10.2 mg/dL [facility] Bilirubin, Total 0.2 0.0 - 1.0 mg/dL [facility] Aspartate Amino Transferase 21 5 - 31 U/L [facility] Alanine Aminotransferase 26 0 - 31 U/L [facility] Total Protein 7.2 6.5 - 8.0 g/dL [facility] Albumin Level 4.3 3.5 - 5.0 g/dL [facility] Alkaline Phosphatase 90 39 - 117 U/L [facility] Blood Venous blood specimen / Unknown 10/22/2024 3:49 PM EST 10/22/2024 5:46 PM EST us Lissy Gracia MD LAB BLOOD ORDERABLES Final Res ult [facility] [address] [place] [phone] * Respiratory Allergy Profile Region I (09/23/2024 2:26 PM EST) Mouse Urine Proteins (E72) IgE <0.10 kU/L [facility] Class 0 [facility] Cockroach (I6) IgE <0.10 kU/L [facility] Class 0 [facility] Dermatophagoides farinae (D2) IgE <0.10 kU/L [facility] Class 0 [facility] Cat Dander (E1) IgE <0.10 kU/L [facility] Class 0 [facility] Comment:THIS TEST WAS PERFOR MED AT:[facility] [id number] [place] [phone] HEIN MD Dog Dander (E5) IgE <0.10 kU/L [facility] Class 0 [facility] Comment:THIS TEST WAS PERFOR MED AT:[address] [place] [phone] HEIN MD [place] (G6) IgE <0.10 kU/L [facility] Class 0 [facility] Cladosporium herbarum (M2) IgE <0.10 kU/L [facility] Class 0 [facility] Aspergillus Fumigatis (M3) IgE <0.10 kU/L [facility] Class 0 [facility] Alternaria alternata (M6) IgE <0.10 kU/L [facility] Class 0 [facility] Comment:THIS TEST WAS PERFOR MED AT:[address] [place] [phone] HEIN MD [place] (t6) IgE <0.10 kU/L [facility] Class 0 [facility] [place] (T7) IgE <0.10 kU/L [facility] Class 0 [facility] [place] (T10) IgE <0.10 kU/L [facility] Class 0 [facility] [place] (T11) IgE <0.10 kU/L [facility] Class 0 [facility] [place] (T14) IgE <0.10 kU/L [facility] Class 0 [facility] [place] (t15) IgE <0.10 kU/L [facility] Class 0 [facility] [place] (T70) IgE <0.10 kU/L [facility] Class 0 [facility] Common Ragweed (Short) (W1) IgE <0.10 kU/L [facility] Class 0 [facility] Mugwort (w6) IgE <0.10 kU/L [facility] Class 0 [facility] Dermatophagoides pteronyssinus (D1) IgE <0.10 kU/L [facility] Class 0 [facility] Berm[place] Grass (g2) IgE <0.10 kU/L [facility] Class 0 [facility] Penicillium Notatum (M1) IgE <0.10 kU/L [facility] Class 0 [facility] Birch (T3) IgE <0.10 kU/L [facility] Class 0 [facility] Elm (t8) IgE <0.10 kU/L [facility] Class 0 [facility] Maple ([place]) (T1) IgE <0.10 kU/L [facility] Class 0 [facility] Rough Pigweed (W14) IgE <0.10 kU/L [facility] Class 0 [facility] Sheep [place] (W18) IgE <0.10 kU/L [facility] Class 0 [facility] Allergen Comment See Below [facility] Comment: Specific ?Level of AllergenIGE Class ?kU/L ? Specific IGE Antibody ----- ? --------- ?0 ?<0.10 ? Absent/Undetectable ??0/1 ?0.10-0.34 ? Very Low Level ??1 ?0.35-0.69 ? Low Level ??2 ?0.70-3.49 ? Moderate Level ??3 ?3.50-17.4 ? High Level ??4 ?17.5-49.9 ? Very High Level ??5 ?50-100 ?Very High Level ??6 ?>100 ?Very High LevelThe clinical relevance of allergen results of0.10-0.34 kU/L are undetermined and intended forspecialist use.Allergens denoted with a include results usingone or more analyte specific reagents. In thosecases, the test was developed and its analyticalperformance characteristics have been determined by[employer]. It has not been cleared or approvedby the U.S. Food and Drug Administration. This assayhas been validated pursuant to the CLIA regulationsand is used for clinical purposes.THIS TEST WAS PERFORMED AT:[facility] [address] ??[phone] HEIN MD 09/23/2024 2:26 PM EST 09/23/2024 2:26 PM EST us Generic External Data Provider LAB BLOOD ORDERAB LES Final Result [facility] [address] [place] [phone] * XR Chest 1 View (09/06/2024 5:30 AM EST) Only the most recent of2 resultswithin the time period is included. Anatomical Region Laterality Modality Chest Radiographic Liss ging 09/06/2024 5:30 AM EST Narrative 09/06/2024 6:42 AM EST ? [facility] ?[address] ?[place] [address] ?XRay Report ? Signed ? Patient: Irene Garcia ?MR#: ?? [id number] ? : 1975 ?Acct:[id number] ? Age/Sex: 48 / F ?ADM Date: //24 ? Loc: HO.ED ? Attending Dr: ? Ordering Physician: Petty Keys MD ?? Date of Service: 09/06/24 ?? Procedure(s): XR chest 1V ?? Accession Number(s): [id number] ? cc: Petty Keys MD; Lissy Gracia ? EXAMINATION: ?? XR CHEST ? CLINICAL INFORMATION: ?? SOB ? COMPARISON: ?? Chest radiograph 08/30/2024 ? TECHNIQUE: ?? Frontal view of the chest was obtained. ? FINDINGS: ?? Normal appearance of the cardiomediastinal structures. No effusions or ?? pneumothoraces. No focal pulmonary consolidation. Central peribronchial ?? wall thickening. ? XR/XR chest 1V ?? IMPRESSION: ?? *Central peribronchial wall thickening which may represent bronchitis ?? and/or the chronic sequela of asthma. No focal pulmonary consolidation. ? Electronically signed by: ??Enmanuel Briggs MD ??09/06/2024 06:38 AM EST RP ? Dictated By: ?Enmanuel Briggs MD ? Signed By: ?<Electronically signed by Enmanuel Briggs MD in OV> ? 09/06/24 0638 ? DD/ 0530 ? TD/TT: 09/06/24 0534 ? Restaurant Inspector: EF ? Procedure Note Dustinter, Image - 09/06/2024 [place] [address] XRay Report Signed Patient: Irene GarciaMR#: [id number] : 1975Acct:[id number] Age/Sex: 48 / FADM Date: 09/06/24 Loc: HO.ED Attending Dr: Ordering Physician: Petty Keys MD Date of Service: 09/06/24 Procedure(s): XR chest 1V Accession Number(s): [id number] cc: Petty Keys MD; Lissy Gracia EXAMINATION: XR CHEST CLINICAL INFORMATION: SOB COMPARISON: Chest radiograph 08/30/2024 TECHNIQUE: Frontal view of the chest was obtained. FINDINGS: Normal appearance of the cardiomediastinal structures. No effusions or pneumothoraces. No focal pulmonary consolidation. Central peribronchial wall thickening. XR/XR chest 1V IMPRESSION: *Central peribronchial wall thickening which may represent bronchitis and/or the chronic sequela of asthma. No focal pulmonary consolidation. Electronically signed by: Enmanuel Briggs MD 09/06/2024 06:38 AM EST Dictated By: Enmanuel Briggs MD Signed By: <Electronically signed by Enmanuel Briggs MD in OV> 09/06/24 0638 DD/ 0530 TD/TT: 09/06/24 0534 Restaurant Inspector: ANAHI [facility] External Provider IMG XR PROCEDURES Final Result * Strep A Nucleic Acid (09/06/2024 2:32 AM EST) IDNOW SERIAL# [id number] [facility] Strep A Nucleic Acid Negative Negative [facility] Comment:All test results mus t be correlated with clinical findings.This test has not been evaluated for monitoring treatment ofinfection.Additional follow-up testing using the culture method isrequired if the result is negative and clinical symptomspersist, or in the event of an acute rheumatic feveroutbreak. 09/06/2024 2:32 AM EST 09/06/2024 2:36 AM EST Generic External Data Provider LAB MICROBIOLOGY - GENERAL ORDERABLES Final Result Performing Organization Address [facility] Co de Phone Number [facility] [address] [place] [phone] * Slide Review (09/06/2024 2:31 AM EST) Slide Review VERIFIED [facility] 09/06/2024 2:31 AM EST 09/06/2024 2:36 AM EST Generic External Data Provider LAB BLOOD ORDERAB LES Final Result Performing Organization Address [facility] de Phone Number [facility] [address] [place] [phone] * B Type Natriuretic Peptide (BNP) (09/06/2024 2:31 AM EST) Only the most recent of3 resultswithin the time period is included. B Type Natriuretic Peptide 16 <100 pg/mL [facility] Comment:For those patients w ho are being treated with Natrecor(nesiritide, recombinant BNP), BNP testing should beperformed at least two hours post treatment in order toensure that only endogenous levels of BNP are detected. 09/06/2024 2:31 AM EST 09/06/2024 3:39 AM EST Generic External Data Provider LAB BLOOD ORDERAB LES Final Result Performing Organization Address [facility] Phone Number [facility] [address] [place] [phone] * Magnesium (08/30/2024 3:57 AM EST) Pathologist [facility] Magnesium 2.0 1.6 - 2.6 mg/dL [facility] 08/30/2024 3:57 AM EST 08/30/2024 4:02 AM EST Generic External Data Provider LAB BLOOD ORDERAB LES Final Result Performing Organization Address [facility] Phone Number [facility] [address] [place] [phone] * Lipase (08/30/2024 3:57 AM EST) [facility] Lipase 33 8 - 78 U/L [facility] 08/30/2024 3:57 AM EST 08/30/2024 4:02 AM EST Generic External Data Provider LAB BLOOD ORDERAB LES Final Result Performing Organization Address [facility] [address] [place] [phone] * (ABNORMAL) POCT glucose manually resulted (08/28/2024 11:59 AM EST) Only the most recent of2 resultswithin the time period is included. Glucose Blood, POC 254(A) 60 - 200 mg/dL QC Media Lot # [id number] Lot# Expiration Date Blood Capillary blood specimen / Unknown 08/28/2024 11:59 AM EST us Lissy Gracia MD POINT OF CARE TEST ENTER/EDIT ORDERABLES Final Result * ECG 12 lead (08/21/2024 2:00 PM EST) Narrative Candice Moreland, - 08/21/2024 2:00 PM EST NSR @ 97bpm; nml intervals, J-point elevated V2-V5, TWI III and aVF us Candice Moreland DO ECG ORDERABLES Final Result * (ABNORMAL) POCT HGB A1C (08/21/2024 12:00 PM EST) Hemoglobin A1C 8.4(A) 4.0 - 6.0 % QC Media Lot # [id number] Lot# Expiration Date Blood 08/21/2024 12:0 0 PM EST us Candice Moreland DO POINT OF CARE TEST ENTER/GOPAL T ORDERABLES Final Result * BI Mammogram Screening Tomosynthesis Bilateral (01/11/2024 2:45 PM EDT) Anatomical Region Laterality Modality Breast Bilateral Mammography 01/11/2024 2:45 PM EDT Narrative 02/06/2024 6:07 AM EDT ? [facility] ? [address] ?[place] [address] ? Mammography Report ? Signed ? Patient: Irene Garcia ?MR#: ?? [id number] ? : 1975 ?Acct:[id number] ? Age/Sex: 48 / F ?ADM Date: 03/28/24 ? Loc: HO.MAMMO ? Attending Dr: Lissy Gracia MD ? Ordering Physician: Lissy Gracia ?Results: 1Negative ? Date of Service: 01/11/24 ?Follow Up: 1 Year From Orig ?? inal Mammogram ? Procedure(s): MM tomosynthesis screening BI ?? Accession Number(s): [id number] ? cc: Lissy Gracia ? EXAMINATION: ?? MM SCREENING DIGITAL BREAST TOMOSYNTHESIS, BILATERAL ? CLINICAL INFORMATION: ? Screening. Asymptomatic. ? COMPARISON: ?? Mammography: This study is compared with prior exams dating back to ?? 2015. ? TECHNIQUE: ?? Digital breast tomosynthesis is performed in both the craniocaudal and ?? mediolateral oblique views along with computer-aided detection (CAD). ?? Synthesized 2D images are generated from the tomosynthesis. ? FINDINGS: ?? There are scattered areas of fibroglandular density (ACR BI-RADS breast ?? composition Category b). ? There are no significant masses, abnormal calcifications, or other ?? abnormalities. ? MM/MM tomosynthesis screening BI ?? IMPRESSION: ?? No mammographic evidence of malignancy. ? ASSESSMENT: ? BI-RADS BI-RADS 1 - Negative ? RECOMMENDATION: ?? Routine annual mammography screening. ? 1 year F/U ? This examination should not preclude the clinical evaluation of a ?? suspicious palpable abnormality. ? This patient's information was entered into a reminder system with a ?? target due date for their next mammogram. ? Dictated By: ?Joi Rivera MD ? Signed By: ?<Electronically signed by Joi Rivera MD in OV> ? 04/23/24 0604 ? DD/ 1445 ? TD/TT: ? Restaurant Inspector: ? Procedure Note Donotuseinterpreter, Image - 02/06/[address] [place] [address] Mammography Report Signed Patient: Susu Garcia#: [id number] : 1975Acct:[id number] Age/Sex: 48 / FADM Date: 01/11/24 Loc: [facility] Attending Dr: Lissy Gracia MD Ordering Physician: Rodriguez Graciaults: 1Negative Date of Service: 01/11/24Follow Up: 1 Year From Orig inal Mammogram Procedure(s): MM tomosynthesis screening BI Accession Number(s): [id number] cc: Lissy Gracia EXAMINATION: MM SCREENING DIGITAL BREAST TOMOSYNTHESIS, BILATERAL CLINICAL INFORMATION: Screening. Asymptomatic. COMPARISON: Mammography: This study is compared with prior exams dating back to 2016. TECHNIQUE: Digital breast tomosynthesis is performed in both the craniocaudal and mediolateral oblique views along with computer-aided detection (CAD). Synthesized 2D images are generated from the tomosynthesis. FINDINGS: There are scattered areas of fibroglandular density (ACR BI-RADS breast composition Category b). There are no significant masses, abnormal calcifications, or other abnormalities. MM/MM tomosynthesis screening BI IMPRESSION: No mammographic evidence of malignancy. ASSESSMENT: BI-RADS BI-RADS 1 - Negative RECOMMENDATION: Routine annual mammography screening. 1 year F/U This examination should not preclude the clinical evaluation of a suspicious palpable abnormality. This patient's information was entered into a reminder system with a target due date for their next mammogram. Dictated By: Joi Rivera MD Signed By: <Electronically signed by Joi Rivera MD in OV> 02/06/24 0604 DD/ 1445 TD/TT: Restaurant Inspector: us Lissy Gracia MD IMG BI PROCEDURES Final Result * Lipid Panel, Standard (12/25/2023 9:46 AM EDT) Triglycerides 44 <150 mg/dL [facility] Comment:Desirable Triglyceri de: less than 150 mg/dLBorderline High Triglyceride 150-199 mg/dLHigh Triglyceride: 200-499 mg/dLVery High Triglyceride: greater than or equal to 5OO mg/dL Cholesterol 145 <200 mg/dL [facility] Comment:Desirable Cholestero l: less than 200 mg/dLBorderline High Cholesterol: 200-239 mg/dLHigh Cholesterol: greater than 239 mg/dL LDL Cholesterol Calculated 64 <100 mg/dL [facility] Comment:Desirable LDL: less than 100 mg/dLNear Optimal/Above Optimal LDL: 110- 129 mg/dLBorderline High LDL: 130-159 mg/dLHigh LDL: 160-189 mg/dLVery High LDL: greater than or equal to 190 mg/dL HDL Cholesterol 73 >40 mg/dL [facility] Comment:Desirable HDL: great er than 40 mg/dL Note: This HDL assay may give artificially low results in patients with liver disease. Blood Venous blood specimen / Unknown 12/25/2023 9:46 AM EDT 12/25/2023 11:04 AM EDT us Lissy Gracia MD LAB BLOOD ORDERABLES Final Res ult [facility] [address] [place] [phone] * Pap Smear (11/22/2023 1:51 PM EST) 11/22/2023 1:51 PM EST 11/24/2023 8:30 AM EST Narrative [facility] - 12/04/2023 10:46 AM EST ----- ------- Name: Irene Garcia ?Age/Sex: 47/F ? : 1975 Unit#: [id number] ?? Attend Dr: ManuelClare NOBLE ?Re11/22/23 ?Status: DEP REF ? Location: HO.LNP ?Disch: ? ----- ------- SPEC : [id number] ? RECD: 11/24/23 ? STATUS: ??SOUT ? REQ NUM: [id number] ? CHENG: 11/22/23-1351 ? SUBM DR: ManuelClare NOBLE ? ENTERED: ??11/24/23-9 ?SP TYPE: Pap Smr ?OTHR DR: Lissy Gracia ? ORDERED: ??Pap Smear, PAP path review ? Interpretation ?? General Category: ?? Epithelial cell abnormality. ?? Adequacy: ?Endocervical component present. ?? Interpretation: ?Atypical squamous cells of undetermined significance. ?Abundant blood present; acid-wash performed. ? HPV mRNA E6/E7: ?DETECTED ? This assay detects E6/E7 viral messenger RNA (mRNA) from 14 high-risk HPV types (16, 18, ?? 31, 33, 35, 39, 45, 51, 52, 56, 58, 59, 66, 68) ? HPV Type 16 RNA: ?Not Detected ?? HPV Type 18/45 RNA: ? Not Detected ? HPV testing performed by [facility], [place], [place]. ??See reference laboratory ?? portion of the EMR for entire report. ?Clinical Information LMP: 11/14/23 Previous PAP test: 09/12/22, HPV+ ? Material Received ?? ThinPrep-Cervical Copies To: ?? Lissy Gracia ?? [address] ?? [place] [address] ?? [phone] ?? Clare Jackson CNM ?? [address] ?? [place] [address] ?? [phone] ----- ------- Signed (signature on file) Candelaria Allerton 12/04/23 1046 ? ----- ------- ? END OF REPORT ? us Generic External Data Provider LAB CYTOLOGY AROLDO TSAI Final Result Performing Organization Address [facility] de Phone Number [facility] [address] [place] [address] [phone] * Albumin, Random Urine W/Creatinine (11/06/2023 2:33 PM EST) Creatinine, Urine 59.51 mg/dL [facility] Microalbumin Urine 14.0 mg/L [facility] Microalbum Creatinine Ratio Ur 23.5 <30 ug/mg cr [facility] Comment:Albumin/Creatinine R atio Reference Ranges: Normal: < 30 ug/mg creatinine Microalbuminuria: 30 - 300 ug/mg creatinineClinical Albuminuria: > 300 ug/mg creatinine Urine (Urine, Random) 11/06/2023 2:33 PM EST 11/06/2023 4:16 PM EST us Lissy Gracia MD LAB URINE ORDERABLES Final Res ult Performing Organization Address [facility] Co de Phone Number [facility] [address] [place] [address] [phone] * (ABNORMAL) HPV mRNA E6/E7 w/Reflex to HPV Genotypes 16, 18/45 (09/12/2022 9:53 AM EST) HPV nRNA E6/E7 Detected(A ) Not Detected [facility] Comment:Methodology: Transcr iption-Mediated AmplificationThis assay detects E6/E7 viral messenger RNA (mRNA) from 14high-risk HPV types (16,18,31,33,35,39,45,51,52,56,58,59,66,68).Cervical sources are required for HPV testing.If a vaginal source from a patient who has had atotal hysterectomy with removal of cervix wassubmitted, please contact the testing laboratoryfor alternative testing options.For additional information, please refer [email or web address]/faq/[email or web address](This link if provided for information/educational purposes only.)THIS TEST WAS PERFORMED AT:[facility] [place] [address],[place] [address]RVVHDCASSIUS HEIN MD HPV 16 RNA NOT DETECTED NOT DETECTED [facility] HPV 18/45 RNA NOT DETECTED NOT DETECTED [facility] Comment:Methodology: Transcr iption Mediated AmplificationCervical sources are required for HPV testing.If a vaginal source from a patient who has had atotal hysterectomy with removal of cervix wassubmitted, please contact the testing laboratoryfor alternative testing options.THIS TEST WAS PERFORMED AT:[facility] [place] [address],[place] [address]CASSIUS HEIN MD 09/12/2022 9:53 AM EST 09/12/2022 12:00 PM EST [facility] External Provider LAB CYT OLOGY ORDERABLES Final Result [facility] [address] [place] [address] [phone] * HEPATITIS C ANTIBODY (06/16/2020 12:35 PM EDT) HEPATITIS C ANTIBODY NONREACTIVE NONREACTIVE [facility] Comment: Antibodies to HCV not detected; does not exclude early acute HCV infection. 06/16/2020 12:3 5 PM EDT Historical Provider HISTORICAL/NON ORDERABLE LABS Final Result [facility] [address] * HIV AB/AG (06/16/2020 12:35 PM EDT) Pathologist [facility] HIV AG/AB NONREACTIVE [facility] Comment: HIV-1 p24 Ag and/or HIV-1/HIV-2 Ab not detected. ?? A test result that is nonreactive does not exclude the possibility of exposure to or infection with HIV-1 and/or HIV-2. Nonreactive results in this assay for individuals with prior exposure to HIV-1 and/or HIV-2 may be due to antigen and antibody levels that are below the limit of detection of this assay. ?? The [employer] Continuous Miner Operator Helper HIV Ag/Ab Combo assay result and supplemental assay results should be interpreted in conjunction with the patient's clinical presentation, history and other laboratory results. ??If the results are inconsistent with clinical evidence, additional testing is suggested to confirm the result. 06/16/2020 12:3 5 PM EDT us Historical Provider HISTORICAL/NON ORDERABLE LABS Final Result [facility] from Last 3 Months or Most Recently Relevant to Health Maintenance Insurance [facility] STAND ADULT Care Teams Sybase Developer Relationship Specialty Start Date End Date Lissy Gracia MD [address] [place] [address] PCP - General Family Medicine 06/07/21 Reinaldo Persaud, LILIANE [address] [place] [phone] Building Code InspectorDance Entertainer 11/05/24
--- OUTSIDE RECORDS SUMMARY | 2024-11-19 15:34 | XMS_ITS | Encounter Summary ---
Author Organization [facility] Address [address] [place] [address] Care Team Providers Care Director Home Health Name Role Phone Lissy Gracia MD Primary Care Provider [phone] Reinaldo Persaud RN Unavailable Reason for Visit * Reason Comments Asthma Encounter Details Date Type Department Care Team ([facility] st Contact Info) Description 11/07/2024 1:20 PM EST Office Visit [facility] [address] [place], [place] [phone] Candice Moreland DO [address] [place], [place] [phone] Mild persistent asthma with acute exacerbation (Primary Dx) Social History Tobacco Use Types Packs/Day Years [...] AM EDT documented as of this encounter Last Filed Vital Signs Vital Sign Reading Time Taken Comments Blood Pressure 139/83 11/07/2024 1:00 PM EST Pulse 108 11/07/2024 1:00 PM EST Temperature 36.9 ??C (98.5 ??F) 11/07/2024 1:00 PM ES T Respiratory Rate 19 11/07/2024 1:00 PM EST Oxygen Saturation 96% 11/07/2024 1:00 PM EST Inhaled Oxygen Concentration - - Weight 77.7 kg (171 lb 6.4 oz) 11/07/2024 1:00 P M EST Height - - Body Mass Index 27.66 08/28/2024 11:36 AM EST documented in this encounter Progress Notes * Candice Moreland, DO - 11/07/2024 1:00 PM EST SUBJECTIVE Irene Flower is a 48 y.o. female who presents for Sick Visit. She comes to [place] c/o worsening asthma sx. She was seen in ED last week with URI sx and TOMLINSON. COVID, flu, and RSV were negative. Her CXR was unremarkable. She was treated with migraine cocktail and sent home with excedrin, reglan, and benadryl. She saw pulm for eval last mos and was sent for PFTs and RAST testing. Her asmanex was changed to breo. She says she was supposed to have f/u appt on the , but it was moved to DEC. She says the breo was working well and she wasn't having any chest pain or tightness until the other day when her heater went out. She says she has breathing tests on NOV 19. She c/o SOB and coughings x 3-4 days. She says her heater stopped working and she has been breathing-in very cold air. Her chest feels tight and it's hard to get the air out. She feels like it is hard to walk short distances; she got out of breath walking to the pharmacy. She says she left her albuterol pump in her other bag, so she has not used the albuterol today. She has been using more frequently at home. She says she has seasonal allergies, which have been worse in the cold temperature at home. She denies any fevers. She says she is still waiting for someone to come fix her heat. She is living in housing and they keep putting her off. She hasn't been told when they would come fix the heater. She took her mom rasheeda to a hotel on Monday night but can't keep doing that and has no where else to go. She was told that she would be brought a space heater yesterday but they never came. History provided by: Patient historic interpreter used: Yes (Telly Casillas) Asthma Severity: Moderate Onset quality: Sudden Duration: 4 days Timing: Constant Progression: Unchanged Associated symptoms: cough and shortness of breath Associated symptoms: no abdominal pain, no chest pain, no diarrhea, no fever, no headaches, no nausea, no vomiting and no wheezing Review of Systems Constitutional: Negative for activity change, appetite change, chills, fever and unexpected weight change. Respiratory: Positive for cough, chest tightness and shortness of breath. Negative for wheezing. Cardiovascular: Negative for chest pain, palpitations and leg swelling. Gastrointestinal: Negative for abdominal pain, diarrhea, nausea and vomiting. Neurological: Negative for weakness and headaches. Patient Active Problem List Diagnosis Allergic rhinitis Backache Cervical radiculopathy Chronic migraine without aura Edema of foot Gastroesophageal reflux disease Hyperlipidemia Hypertensive disorder Iron deficiency Plantar fasciitis Recurrent depression (CMS/HCC) Type 2 diabetes mellitus (CMS/HCC) Environmental allergies Blood in urine Orthopnea Dyspnea on exertion Snoring COVID-19 virus infection Mild persistent asthma without complication Fibromyalgia Upper back pain Chronic cough No Known Allergies OBJECTIVE Visit Vitals BP 139/83 (BP Location: Left arm, Patient Position: Sitting, BP Cuff Size: Adult) Pulse 108 Temp 98.5 ??F (36.9 ??C) (Temporal) Resp 19 Wt 171 lb 6.4 oz (77.7 kg) SpO2 96% BMI 27.66 kg/m?? Smoking Status Never BSA 1.9 m?? Physical Exam Constitutional: General: She is not in acute distress. Appearance: Normal appearance. Cardiovascular: Rate and Rhythm: Normal rate and regular rhythm. Heart sounds: Normal heart sounds. No murmur heard. Pulmonary: Effort: Pulmonary effort is normal. No accessory muscle usage or respiratory distress. Breath sounds: Normal breath sounds. Decreased air movement present. No wheezing or rhonchi. Comments: Speaking in full sentences without difficulty Neurological: General: No focal deficit present. Mental Status: She is alert and oriented to person, place, and time. Cranial Nerves: No cranial nerve deficit. Motor: No weakness. Gait: Gait normal. Psychiatric: Mood and Affect: Mood normal. Office Visit on 11/07/2024 Component Date Value Ref Range Status Rapid COVID Ag 11/07/2024 Negative Final Influenza A 11/07/2024 Negative Negative, Indeterminate Final Influenza B 11/07/2024 Negative Negative, Indeterminate Final Assessment/Plan Diagnoses and all orders for this visit: Mild persistent asthma with acute exacerbation Likely triggered by recent cold weather -treat with prednisone daily x 5 days -cont breo as rx'd -cont albuterol prn -encouraged d/w housing frequently re: heater repair and space heater use -will d/w HIM RN re: additional recommendations/letter to help expedite repair -advised rtc or go to ED if sx change or worsen, she agrees with plans --Follow-up with PCP as scheduled or sooner prn-- Current Outpatient Medications: acetaminophen (Tylenol) 325 MG tablet, Take 2 tablets (650 mg) by mouth every 4 (four) hours if needed for moderate pain, headaches or fever., Disp: 40 tablet, Rfl: 0 albuterol (2.5 MG/3ML) 0.083% nebulizer solution, INHALE 1 AMPULE USING A NEBULIZER EVERY 4 HOURS NEEDED FOR WHEEZING, Disp: 90 mL, Rfl: 3 albuterol (Ventolin HFA) 108 (90 Base) MCG/ACT inhaler, INHALE 2 PUFFS BY MOUTH EVERY 4 HOURS NEEDED, Disp: 18 g, Rfl: 6 Alcohol Swabs (SM Alcohol Prep) 70 % pads, Apply 1 each topically 2 times daily., Disp: 100 each, Rfl: 11 amitriptyline (Elavil) 50 MG tablet, TAKE 1 TABLET BY MOUTH AT BEDTIME, Disp: 90 tablet, Rfl: 3 ARIPiprazole (Abilify) 2 MG tablet, Take 1 tablet by oral route every day at noon, Disp: 90 tablet,Rfl: 3 atorvastatin (Lipitor) 40 MG tablet, TAKE 1 TABLET BY MOUTH EVERY EVENING, Disp: 90 tablet, Rfl: 3 Blood Glucose Monitoring Suppl (FreeStyle Lite) w/Device kit, 1 kit 2 times daily. To monitor bloodglucose., Disp: 1 kit, Rfl: 0 Blood Pressure kit, 1 each 2 times daily., Disp: 1 kit, Rfl: 0 Breo Ellipta 200-25 MCG/ACT aerosol powder , INHALE 1 PUFF BY MOUTH EVERY DAY AT THE SAME TIME RINSE MOUTH AFTER USING, Disp: , Rfl: busPIRone (Buspar) 15 MG tablet, TAKE 1 TABLET BY MOUTH TWICE DAILY IN THE MORNING AND IN THE EVENING FOR ANXIETY / PANICO, Disp: 180 tablet, Rfl: 3 cetirizine (ZyrTEC) 10 MG tablet, TAKE 1 TABLET BY MOUTH EVERY MORNING NEEDED, Disp: 90 tablet, Rfl: 3 cyclobenzaprine (Flexeril) 10 MG tablet, One tab po at bedtime prn pain of muscles, do not drive with medicaion, Disp: 20 tablet, Rfl: 0 Diclofenac Sodium 1 % gel, Apply 1 Application topically if needed in the morning and at bedtime (pain in feet)., Disp: 100 g, Rfl: 6 diphenhydrAMINE (BENADryl) 25 MG capsule, TAKE 2 CAPSULES BY MOUTH EVERY 6 HOURS NEEDED FOR NAUSEA AND VOMITING AND HEADACHE, Disp: , Rfl: docusate sodium (Colace) 100 MG capsule, Take 100 mg by mouth at bedtime., Disp: , Rfl: Dulaglutide 1.5 MG/0.5ML solution auto-injector, Inject 0.5 mL (1.5 mg) as directed 1 (one) time per week., Disp: 2 mL, Rfl: 11 famotidine (Pepcid) 40 MG tablet, Take 40 mg by mouth at bedtime., Disp: , Rfl: FeroSul 325 (65 Fe) MG tablet, TAKE 1 TABLET BY MOUTH EVERY OTHER DAY IN THE MORNING WITH FOOD OR ORANGE JUICE, Disp: 45 tablet, Rfl: 6 fluticasone (Flonase) 50 MCG/ACT nasal spray, INHALE 1 TO 2 SPRAYS IN EACH NOSTRIL ONCE DAILY NEEDED, Disp: 48 g, Rfl: 3 FREESTYLE LITE test strip, 1 each by Other route 2 times daily. Use as instructed, Disp: 100 each, Rfl: 11 gabapentin (Neurontin) 300 MG capsule, TAKE 1 CAPSULE BY MOUTH TWICE DAILY IN THE MORNING AND IN THE EVENING and TAKE 2 CAPSULES BY MOUTH EVERY DAY AT BEDTIME, Disp: 120 capsule, Rfl: 11 glipiZIDE XL (Glucotrol XL) 10 MG 24 hr tablet, Take 1 tablet (10 mg) by mouth in the morning., Disp: 90 tablet, Rfl: 3 hydroCHLOROthiazide (HYDRODiuril) 25 MG tablet, Take 1 tablet (25 mg) by mouth Once per day., Disp:30 tablet, Rfl: 11 ibuprofen 400 MG tablet, Take 1 tablet (400 mg) by mouth every 8 (eight) hours if needed for moderate pain or fever for up to 30 doses., Disp: 15 tablet, Rfl: 0 Invokana 300 MG, TAKE 1 TABLET BY MOUTH EVERY MORNING BEFORE BREAKFAST, Disp: 90 tablet, Rfl: 3 ketorolac (Toradol) 10 MG tablet, TAKE 1 TABLET BY MOUTH EVERY 8 HOURS. DO no TAKE WITH Naprosyn, ibuprofen OR NSAIDs, ONLY Tylenol IF necesario, Disp: , Rfl: lidocaine (Lidoderm) 5 % patch, APPLY 1 TO 2 PATCHES TOPICALLY TO SKIN, LEAVE ON FOR 12 HOURS AND OFF FOR 12 HOURS DIRECTED, Disp: 60 patch, Rfl: 6 lisinopril 10 MG tablet, Take 1 tablet (10 mg) by mouth Once per day., Disp: 30 tablet, Rfl: 11 LORazepam (Ativan) 0.5 MG tablet, Take 1 tablet by mouth 2 times daily., Disp: , Rfl: Magnesium 400 MG capsule, Take 1 capsule by mouth at bedtime., Disp: 90 capsule, Rfl: 3 magnesium oxide (Mag-Ox) 400 MG tablet, Take 1 tablet by mouth at bedtime., Disp: , Rfl: metFORMIN (Glucophage) 500 MG tablet, TAKE 2 TABLETS BY MOUTH TWICE DAILY IN THE MORNING AND EVENING WITH MEALS, Disp: 360 tablet, Rfl: 3 metoclopramide (Reglan) 10 MG tablet, take 1 tablet by mouth every 6 hours as needed for nausea andvomiting, Disp: , Rfl: Mometasone Furoate (Asmanex HFA) 100 MCG/ACT aerosol, Inhale 1 puff 2 times daily. Inhale 1 puff inthe morning and at bedtime. Rinse mouth with water after use to reduce aftertaste and incidence of candidiasis. Do not swallow., Disp: 13 g, Rfl: 11 ondansetron ODT (Zofran-ODT) 4 MG disintegrating tablet, DISSOLVE 1 TABLET ENCIMA DE LA LENGUA EVERY 8 HOURS DIRECTED, Disp: 20 tablet, Rfl: 3 Pain Reliever Plus 250-250-65 MG tablet, TAKE 2 TABLETS BY MOUTH EVERY 6 HOURS NEEDED FOR HEADACHE, Disp: , Rfl: predniSONE (Deltasone) 20 MG tablet, Take 3 tablets (60 mg) by mouth Once per day for 5 days., Disp: 15 tablet, Rfl: 0 sertraline (Zoloft) 100 MG tablet, TAKE 1 AND 1/2 TABLETS BY MOUTH IN THE MORNING, Disp: , Rfl: Spacer/Aero-Holding Chambers (Pro Comfort Spacer Adult) misc, For use with inhaler., Disp: 1 each, Rfl: 0 TRUEplus Lancets 33G misc, Apply 1 each topically 2 times daily., Disp: 100 each, Rfl: 11 Scribe Attestation: I, Kenneth Gutierrez, am serving as a scribe to document services personally performed by Candice Hatch, based on the patient's response to questions by provider and provider's statements to me. Physicians Attestation: I, Candice Moreland DO, have reviewed the information by the scribe, Kenneth Gutierrez, for accuracy and agree with its content. documented in this encounter Plan of Treatment Upcoming Encounters Date Type Department Care Team (Late st Contact Info) Description 11/28/2024 9:00 AM EST Office Visit [facility] [address] [place] [address] Wendi Pedroza 2024 9:00 AM EST Office Visit [facility] [address] [place] [address] Wendi Pedroza 12/16/2024 3:45 PM EST Office Visit [facility] [address] [place] [address] Lissy Gracia MD [address] [place], [place] [phone] documented as of this encounter Procedures Procedure Name Priority Date/Time Associated Diagnosis Comments POCT INFLUENZA B (ID NOW RAPID MOLECULAR) Routine 11/07/2024 1:25 PM EST Mild persistent asthma with acute exacerbation POCT INFLUENZA A (ID NOW RAPID MOLECULAR) Routine 11/07/2024 1:25 PM EST Mild persistent asthma with acute exacerbation POCT RAPID COVID ANTIGEN Routine 11/07/2024 1:25 PM EST Mild persistent asthma with acute exacerbation documented in this encounter Results * Influenza B (ID NOW Rapid Molecular) (11/07/2024 1:25 PM EST) Influenza B Negative Negative, Indeterminate [facility] Swab 11/07/2024 1:25 PM EST us Candice Moreland DO POINT OF CARE TEST ENTER/GOPAL T ORDERABLES Final Result [facility] [address] [place] [address] [phone] * Influenza A (ID NOW Rapid Molecular) (11/07/2024 1:25 PM EST) Influenza A Negative Negative, Indeterminate [facility] Swab 11/07/2024 1:25 PM EST Candice Moreland DO POINT OF CARE TEST ENTER/GOPAL T ORDERABLES Final Result Performing Organization Address City/[facility] Co de Phone Number [facility] [address] [place] [address] [phone] * POCT Rapid COVID Ag (11/07/2024 1:25 PM EST) Rapid COVID Ag Negative [facility] Swab 11/07/2024 1:25 PM EST Candice Moreland DO POINT OF CARE TEST ENTER/GOPAL T ORDERABLES Final Result Performing Organization Address [facility] de Phone Number [facility] [address] [place] [address] [phone] documented in this encounter Visit Diagnoses Diagnosis Mild persistent asthma with acute exacerbation- Primary documented in this encounter Additional Health Concerns Assessment Noted Time PHQ-9 Depression Total Score: 0 02/05/20 24 1:47 PM EDT documented as of this encounter Care Teams Director Home Health Relationship Specialty Start Date End Date Lissy Gracia MD [address] [place] [phone] PCP - General Family Medicine 06/07/21 Reinaldo Persaud RN [address] [place] [phone] Freight DispatcherRf Engineer 11/05/24 documented as of this encounter
--- OUTSIDE RECORDS SUMMARY | 2024-11-19 15:34 | XMS_ITS | Continuity of Care Document ---
Author Organization [facility] Address [address] [place] [address] Phone Care Team Providers Care Import/Export Analyst Name Role Phone Madatovian, DO DO, Harut [...] strips apply 1 not specified by [facility]non-drug; combo) route 3 times every day 1 [...] Diagnoses Date Provider Providers Copied on Encounter [facility], [address], [place], [place], [id number], [place] tel:[phone] Bray No Information 1 Madatovian, DO Harut. [address], [address]. tel:[phone] [facility], [address], [place], [place], [id number], [place] tel:[phone] Gentry Hobosn No Information Dec-0 - 0 Madatovian, DO Harut. [address] [facility] [address], [address]. tel:[phone] OV 15 MIN M/F [facility], [address], [place], [place], [id number], [place] tel:[phone] [place] Lab results (chief complaint) Insulin dependent diabetes mellitusLong term (current) use of insulinHyperlip idemia, unspecified hyperlipidemia type Madatovian, DO Harut. [address], [address]. tel:[phone] [facility], [address], [place], [place], [id number], [place] tel:[phone] [place] Blood work only (chief complaint) No Information No Information OV 20 MIN M/F [facility], [address], [place], [place], [id number], [place] tel:[phone] [place] blood test (chief complaint) weight loss (chief complaint) Encntr for general adult medical exam w/o abnormal findingsWeight lossHistory of uterine fibroid Madatovian, DO Harut. [address] [facility] [address], [place], [address]. tel:[phone] Family History Family Member Type Diagnosis Age At Onset No Information Payers Payer name Insurance type Covered republican ID Authoriza tion(s) No Information Social History Type Description Quantity Date Captured Comments Sex Female Smoking Status No Information Chief Complaint And Reason For Visit No Information Reason For Referral Reason For Referral No Information Plan Of Treatment Date Type Action Status Goal Hemoglobin A1C. Due on due Goal Foot exam. Due on due Goal Lipid panel. Due on due Goal GFR. Due on due Goal Dental exam. Due on due Goal Influenza vaccine. Due on due Goal Pneumococcal vaccine. Due on due Goal Urine microalbumin. Due on A due Goal Dilated eye exam. Due on May due Goal Depression screening. Due on due Goal Tdap. Due on due Goal Pap/HPV testing. Due on due Goal Complete Physica l Exam. Due on due Goal Depression screening. Due on due Goal Complete Physica l Exam. Due on due Goal Tdap. Due on due Goal Influenza vaccine. Due on due Goal Lipid panel. Due on due Goal Pap/HPV testing. Due on due Goal Lipid panel. Due on due Goal Influenza vaccine. Due on due Goal Depression screening. Due on due Goal Complete Physica l Exam. Due on due Goal Pap/HPV testing. Due on due Goal Tdap. Due on due Future Order: Lab Order CBC (INC LUDES DIFF/PLT) ([id number]), Ordered on: Ordered Future Order: Lab Order COMPREHE NSIVE METABOLIC PANEL ([id number]), Ordered on: Ordered Future Order: Lab Order HEMOGLOB IN A1C (496), Ordered on: Ordered Future Order: Lab Order LIPID PA BECCA ([id number]), Ordered on: Ordered Future Order: Lab Order THYROID PANEL WITH TSH, 3RD GENERATION ([id number]), Ordered on: Ordered Future Order: Lab Order URINALYS IS, COMPLETE ([id number]), Ordered on: Ordered Future Order: Lab Order C-REACTI VE PROTEIN (20), Ordered on: Ordered Future Order: Lab Order SED RATE BY MODIFIED WESTERGREN (109), Ordered on: Ordered Future Order: Lab Order [...]
--- OUTSIDE RECORDS SUMMARY | 2024-11-19 15:34 | XMS_ITS | Encounter Summary ---
Author Organization [facility] Address [address] [facility] [address] 7t [place] [address] Care Team Providers Care Manufacturing Operations Manager Name Role Phone Lissy Gracia MD Primary Care Provider [phone] Reinaldo Persaud RN Unavailable [phone] Reason for Visit * Reason Comments Med Refill Encounter Details Date Type Department Care Team (Late st Contact Info) Description 12/26/2022 Refill [facility] MEDICINE [address] [place] [address] Adriana Ramesh MD [address] [place] [address] Primary hypertension Social History Tobacco Use Types Packs/Day Years [...] Description 11/28/2024 9:00 AM EST Office Visit [facility] ADULT DENTAL [address] [place] [address] Wendi Pedroza 2024 9:00 AM EST Office Visit [facility] ADULT DENTAL [address] [place] [address] Wendi Pedroza 12/16/2024 3:45 PM EST Office Visit [facility] MEDICINE [address] [place] [address] Lissy Gracia MD [address] [place] [address] documented as of this encounter Visit Diagnoses Diagnosis Primary hypertension Unspecified essential hypertension documented in this encounter Care Teams Manufacturing Operations Manager Relationship Specialty Start Date End Date Lissy Gracia MD [address] [place] [address] PCP - General Family Medicine 06/07/21 Reinaldo Persaud RN [address] [place] [address] Glass Products InspectorWebsite Designer 11/05/24 documented as of this encounter
--- OUTSIDE RECORDS SUMMARY | 2024-11-19 15:34 | XMS_ITS | Encounter Summary ---
Author Organization [facility] [facility] Address [address] [facility] [address] 7[address] [place] [address] Care Team Providers Care Itinerant Teacher Assistant Name Role Phone Lissy Gracia MD Primary Care Provider [phone] Reinaldo Persaud RN Unavailable [phone] Reason for Visit * Reason Comments Med Refill Encounter Details Date Type Department Care Team (Late st Contact Info) Description 12/25/2022 Refill [facility] MEDICINE [address] [place] [address] Adriana Ramesh MD [address] [place] [address] Social History Tobacco Use Types Packs/Day Years [...] Description 11/28/2024 9:00 AM EST Office Visit [facility] ADULT DENTAL [address] [place] [address] Wendi Pedroza 2024 9:00 AM EST Office Visit [facility] ADULT DENTAL [address] [place] [address] Wendi Pedroza 12/16/2024 3:45 PM EST Office Visit [facility] MEDICINE [address] [place] [address] Lissy Gracia MD [address] [place] [address] documented as of this encounter Visit Diagnoses Not on filedocumented in this encounter Care Teams Itinerant Teacher Assistant Relationship Specialty Start Date End Date Lissy Gracia MD [address] [place], [place] [phone] PCP - General Family Medicine 06/07/21 Reinaldo Persaud, LILIANE [address] [place] [address] Transmission SupervisorDevice Sales Consultant 11/05/24 documented as of this encounter
--- OUTSIDE RECORDS SUMMARY | 2024-11-19 15:34 | XMS_ITS | Encounter Summary ---
Author Organization [employer] Address [address] [facility] [address] 7t [place] [address] Care Team Providers Care Shore Man Name Role Phone Lissy Gracia MD Primary Care Provider Reinaldo Persaud RN Unavailable [phone] Reason for Visit * Reason Comments Care Coordination C3 [facility] Ammy bruce telephone call outreach Encounter Details Date Type Department Care Team (Latest Contact Info) Description 11/08/2024 Patient Outreach [facility] MEDICINE [address] [place] [address] Lissy Gracia MD [address] [place] [address] Care Coordination [facility] telephone call outreach) Social History Tobacco Use Types Packs/Day Years [...] as of this encounter Progress Notes * Ammy Ziegler - 11/08/2024 8:55 AM EST CHW Ammy Ziegler placed outbound call to patient introducing herself from [facility] CM Department, in regard to remind patient of appt for 11/11/24 @ 11:00AM for Pain Clinic @[facility]. Patient's name and was confirmed. Patient is aware and confirmed will be available and has no barriers on attending this appointment. Patient verbalized understanding and agrees with plan. documented in this encounter Plan of Treatment Upcoming Encounters Date Type Department Care Team (Late st Contact Info) Description 11/28/2024 9:00 AM EST Office Visit [facility] ADULT DENTAL [address] [place] [address] Pedroza, 2024 9:00 AM EST Office Visit [facility] ADULT DENTAL [address] [place] [address] Wendi Pedroza 12/16/2024 3:45 PM EST Office Visit [facility] MEDICINE [address] [place] [address] Lissy Gracia MD [address] [place] [address] documented as of this encounter Visit Diagnoses Not on filedocumented in this encounter Additional Health Concerns Assessment Noted Time PHQ-9 Depression Total Score: 0 02/05/20 24 1:47 PM EDT documented as of this encounter Care Teams Shore Man Relationship Specialty Start Date End Date Lissy Gracia MD [address] [place] [address] PCP - General Family Medicine 06/07/21 Reinaldo Persaud RN [address] [place] [address] Experience Planning StrategistShort Filler Bunch Machine Operator 11/05/24 documented as of this encounter
--- OUTSIDE RECORDS SUMMARY | 2024-11-19 15:34 | XMS_ITS | Encounter Summary ---
Author Organization [employer] Address [address] [facility] [address]t [place] [address] Care Team Providers Care Geophysical Data Technician Name Role Phone Lissy Gracia MD Primary Care Provider [phone] Reinaldo Persaud RN Unavailable [phone] Reason for Visit * Reason Comments Care Coordination C3 -ARISE bruce telelphone call outreach Encounter Details Date Type Department Care Team (Latest Contact Info) Description 11/05/2024 Patient Outreach [facility] MEDICINE [address] [place] [address] Lissy Gracia MD [address] [place] [address] Care Coordination (C3 ASHLEY Ziegler telelphone call outreach) Social History Tobacco Use Types [...] encounter Progress Notes * Ammy Ziegler - 11/05/2024 3:32 PM EST CHW Ammy Ziegler placed outbound call to patient introducing herself from [facility] CM Department, in regards to offering CM-CHW program services. Patient's name and was confirmed. Patient agrees to participate in CHW- program for SDOH needs. SDOH screening completed: 11/05/2024 CHW spoke to pt she is all set with SDOH she knows how to do PT 1. CHW reinforced direct contact information for any additional questions or concerns and extended clinic hours on Mondays and Wednesdays, and Walk-In Urgent Care Located in Lobby of [facility].Patient provided with after-hours line for [facility], , which offer night time triage serviceand option to transfer to motion study engineer provider if needed. Patient verbalizes understanding, and able torepeat back to technical publications writer. documented in this encounter Plan of Treatment Upcoming Encounters Date Type Department Care Team (Late st Contact Info) Description 11/28/2024 9:00 AM EST Office Visit [facility] ADULT DENTAL [address] [place] [address] Wendi Pedroza 2024 9:00 AM EST Office Visit [facility] ADULT DENTAL [address] [place] [address] Pedroza, Wendi 12/16/2024 3:45 PM EST Office Visit [facility] MEDICINE [address] [place] [address] Lissy Gracia MD [address] [place] [address] documented as of this encounter Visit Diagnoses Not on filedocumented in this encounter Additional Health Concerns Assessment Noted Time PHQ-9 Depression Total Score: 0 02/05/20 24 1:47 PM EDT documented as of this encounter Care Teams Geophysical Data Technician Relationship Specialty Start Date End Date Lissy Gracia MD [address] [place] [address] PCP - General Family Medicine 06/07/21 Reinaldo Persaud RN [address] [place] [address] Epic DirectorDairy Chemist 11/05/24 documented as of this encounter
--- OUTSIDE RECORDS SUMMARY | 2024-11-19 15:34 | XMS_ITS | Encounter Summary ---
Author Organization [employer] Address [address] [address] [facility] [address] 7t [place] [address] Care Team Providers Care Fiberglass Grinder Name Role Phone Lissy Gracia MD Primary Care Provider [phone] Reinaldo Persaud RN Unavailable [phone] Encounter Details Date Type Department Care Team (Latest Contact Info) Description 11/12/2024 Travel Social History Tobacco Use Types Packs/Day [...] Description 11/28/2024 9:00 AM EST Office Visit [facility] ADULT DENTAL [address] [place] [address] Wendi Pedroza 2024 9:00 AM EST Office Visit [facility] ADULT DENTAL [address] [place] [address] Wendi Pedroza 12/16/2024 3:45 PM EST Office Visit [facility] MEDICINE [address] [place] [address] Lissy Gracia MD [address] [place] [address] documented as of this encounter Visit Diagnoses Not on filedocumented in this encounter Additional Health Concerns Assessment Noted Time PHQ-9 Depression Total Score: 0 02/05/20 24 1:47 PM EDT documented as of this encounter Care Teams Fiberglass Grinder Relationship Specialty Start Date End Date Lissy Gracia MD [address] [place] [address] PCP - General Family Medicine 06/07/21 Reinaldo Persaud RN [address] [place] [address] VaritypistConsumer Services Consultant 11/05/24 documented as of this encounter
--- OUTSIDE RECORDS SUMMARY | 2024-11-19 15:34 | XMS_ITS | Encounter Summary ---
Author Organization [employer] Address [address] [facility] [address] 7t [place] [address] Care Team Providers Care Suction Drum Drier Operator Name Role Phone Lissy Gracia MD Primary Care Provider [phone] Reinaldo Persaud RN Unavailable [phone] Reason for Visit * Reason Comments Acupuncture Encounter Details Date Type Department Care Team ([facility] st Contact Info) Description 11/12/2024 1:15 PM EST Office Visit [facility] MEDICINE [address] [place] [address] Lissy Gracia MD [address] [place] [address] Chronic migraine without aura without status migrainosus, not intractable (Primary Dx) Social History Tobacco Use Types [...] as of this encounter Progress Notes * Lissy Gracia MD - 11/12/2024 1:15 PM EST Subjective Patient ID: Irene Flower is a 48 y.o. female who presents for Acupuncture. Irene is here for ongoing acupuncture treatments for anxiety and migraine [place]. She is feeling better with decreased pain and stress. Review of Systems Objective Physical Exam Constitutional: Appearance: Normal appearance. Skin: General: Skin is warm and dry. Neurological: Mental Status: She is alert and oriented to person, place, and time. Assessment/Plan Diagnoses and all orders for this visit: Chronic migraine without aura without status migrainosus, not intractable Anxiety Written consent obtained for ear acupuncture. Ears prepped with alcohol pad. Five ear points needled bilaterally: Sympathetic, Velasquez Men, Kidney, Liver and Lung. Treatment duration: 30 minutes. Good hemostasis. Patient tolerated well. Follow up weekly for repeat acupuncture treatments as desired. documented in this encounter Plan of Treatment Upcoming Encounters Date Type Department Care Team (Late st Contact Info) Description 11/28/2024 9:00 AM EST Office Visit [facility] ADULT DENTAL [address] [place] [address] Wendi Pedroza 2024 9:00 AM EST Office Visit [facility] ADULT DENTAL [address] [place] [address] Kasia, Wendi 12/16/2024 3:45 PM EST Office Visit [facility] MEDICINE [address] [place] [address] Lissy Gracia MD [address] [place] [address] documented as of this encounter Visit Diagnoses Diagnosis Chronic migraine without aura without status migrainosus, not intractable- Primary documented in this encounter Additional Health Concerns Assessment Noted Time PHQ-9 Depression Total Score: 0 02/05/20 24 1:47 PM EDT documented as of this encounter Care Teams Suction Drum Drier Operator Relationship Specialty Start Date End Date Lissy Gracia MD [address] [place] [address] PCP - General Family Medicine 06/07/21 Reinaldo Persaud, RN [address] [place] [address] Registered Physical TherapistSubstitute Bus Driver 11/05/24 documented as of this encounter
--- OUTSIDE RECORDS SUMMARY | 2024-11-19 15:34 | XMS_ITS | Encounter Summary ---
Author Organization [employer] Address [address] [address] [address] 7[address] [place] [address] Care Team Providers Care Agronomist Name Role Phone Lissy Gracia MD Primary Care Provider [phone] Reinaldo Persaud RN Unavailable [phone] Reason for Visit * Reason Onset Date Comments Med Refill 06/20/2024 Encounter Details Date Type Department Care Team ([facility] st Contact Info) Description 06/20/2024 Telephone [facility] MEDICINE [address] [place] [address] Lissy Gracia MD [address] [place] [address] Med Refill Social History Tobacco Use Types Packs/Day Years [...] encounter Miscellaneous Notes * Telephone Encounter - Candice Porter LPN - 06/20/2024 1:08 PM EDT Medication pended to PCP. * Telephone Encounter - Amanda Alicea - 06/20/2024 12:17 PM EDT TC from pt requesting medication refill. Medications needing refill : dulaglutide (Trulicity) 1.5 MG/0.5ML solution pen-injector To be sent to: [facility] - [place], [place] - [address] [facility] documented in this encounter Plan of Treatment Upcoming Encounters Date Type Department Care Team (Late st Contact Info) Description 11/28/2024 9:00 AM EST Office Visit [facility] ADULT DENTAL [address] [place] [address] Wendi Pedroza 2024 9:00 AM EST Office Visit [facility] ADULT DENTAL [address] [place] [address] Wendi Pedroza 12/16/2024 3:45 PM EST Office Visit [facility] MEDICINE [address] [place] [address] Lissy Gracia MD [address] [place] [phone] documented as of this encounter Visit Diagnoses Not on filedocumented in this encounter Additional Health Concerns Assessment Noted Time PHQ-9 Depression Total Score: 0 02/05/20 24 1:47 PM EDT documented as of this encounter Care Teams Agronomist Relationship Specialty Start Date End Date Lissy Gracia MD [address] [place], [place] [phone] PCP - General Family Medicine 06/07/21 Reinaldo Persaud RN [address] [place] [address] Manager ExportCrew Chief 11/05/24 documented as of this encounter
--- OUTSIDE RECORDS SUMMARY | 2024-11-19 15:34 | XMS_ITS | Encounter Summary ---
Author Organization [employer] Address [address] [facility] [address] [facility] [address] 7[address] [place] [address] Care Team Providers Care Fixed Income Director Name Role Phone Lissy Gracia MD Primary Care Provider [phone] Reinaldo Persaud RN Unavailable [phone] Reason for Visit * Reason Comments Med Refill Encounter Details Date Type Department Care Team ([facility] st Contact Info) Description 11/05/2024 Refill [facility] MEDICINE [address] [place], [place] [phone] Lissy Gracia MD [address] [place] [address] Bronchitis Social History Tobacco Use Types Packs/Day Years [...] Description 11/28/2024 9:00 AM EST Office Visit [facility] ADULT DENTAL [address] [place] [address] Wendi Pedroza 2024 9:00 AM EST Office Visit [facility] ADULT DENTAL [address] [place] [address] Wendi Pedroza 12/16/2024 3:45 PM EST Office Visit [facility] MEDICINE [address] [place] [address] Lissy Gracia MD [address] [place] [address] documented as of this encounter Visit Diagnoses Diagnosis Bronchitis Bronchitis, not specified as acute or chronic documented in this encounter Additional Health Concerns Assessment Noted Time PHQ-9 Depression Total Score: 0 02/05/20 24 1:47 PM EDT documented as of this encounter Care Teams Fixed Income Director Relationship Specialty Start Date End Date Lissy Gracia MD [address] [place] [address] PCP - General Family Medicine 06/07/21 Reinaldo Persaud RN [address] [place] [address] Phytopathology TeacherVp Integrity 11/05/24 documented as of this encounter
--- OUTSIDE RECORDS SUMMARY | 2024-11-19 15:34 | XMS_ITS | Encounter Summary ---
Author Organization [employer] Address [address] [facility] [address]t [place] [address] Care Team Providers Care Umbrella Mender Name Role Phone Lissy Gracia MD Primary Care Provider [phone] Reinaldo Persaud RN Unavailable [phone] Encounter Details Date Type Department Care Team ([facility] Contact Info) Description 11/11/2024 11:00 AM EST Office Visit [facility] MEDICINE [address] [place] [address] Lissy Gracia MD 230 [place] [address] Fibromyalgia (Primary Dx); Thrush, oral Social History Tobacco Use Types Packs/Day Years [...] the past 12 months, has t he gloStream, gas, oil or water [employer] threatened to shut off services in your [...] Progress Notes * Lissy Gracia MD - 11/11/2024 11:00 AM EST Subjective: Irene Flower is a 48 y.o. female w/ PMH asthma, depression, HEAVENLY , DM2, HTN, migraine, fibromyalgia who presents to the office for - Chronic Pain Clinic Group visits. Initial Group visit: 10/28/24 Group Visit Number: 2 Last PCP visit: Basil, 10/2024 Group Confidentiality last signed: 10/28/24 Group Topic: Uses of Teas Today, she has some worry for developing thrush because she is about to start prednisone for asthma. Latest Reference Range & Units 10/28/24 12:08 Red Blood Count 4.20 - 5.50 X10*6/uL 4.85 Hemoglobin 12.0 - 16.0 g/dl 12.1 Hematocrit 37.0 - 47.0 % 37.4 Mean Corpuscular Volume 80.0 - 98.0 fL 77.1 (L) Mean Corpuscular Hemoglobin 27.0 - 33.0 pg 24.9 (L) Mean Corpuscular HGB Conc 31.0 - 35.0 g/dl 32.4 Red Cell Distribution Width 11.0 - 16.0 % 15.3 Platelet Count 160 - 400 X10*3/uL 369 Eosinophils Percent Auto 0 - 4 % 1.2 Lymphocytes Absolute Auto 1.2 - 4.9 X10*3/uL 2.1 Basophils Absolute Auto 0.0 - 0.2 X10*3/uL 0.0 Monocytes Absolute Auto 0.1 - 1.2 X10*3/uL 0.4 Neutrophils Absolute Auto 2.0 - 8.3 x10*3/uL 3.4 Neutrophils Percent Auto 45 - 73 % 56.2 Basophils Percent Auto 0 - 2 % 0.5 Eosinophils Absolute Auto 0.0 - 0.4 X10*3/uL 0.1 Lymphocytes Percent Auto 20 - 40 % 34.7 Monocytes Percent Auto 2 - 11 % 7.1 Imm Gran Abs Auto 0.00 - 0.03 X10*3/uL 0.02 Imm Gran Pct Auto 0.0 - 0.4 % 0.3 Prothrombin Time 10.9 - 12.4 SEC 10.8 (L) INTERNATIONAL NORM RATIO 0.9 - 1.1 0.9 Mean Platelet Volume 9.4 - 12.3 fL 9.6 NRBC Abs Auto 0.0 - 0.012 X10*3/uL 0.000 NRBC Pct Auto 0.0 - 0.2 /100WBC 0.0 White Blood Count 4.8 - 10.8 X10*3/uL 6.1 Will check retic count, she says she is taking iron supplements, also needs to do colon cancer screening Chronic Pain History: Associated Diagnosis: fibromyalgia Relevant Imaging: FINDINGS: Some mild degenerative changes are present with some mild disc space narrowing at L3-L4. Mild spondylitic endplate changes are seen with marginal osteophytes. Vertebral body heights are well-maintained. Some mild degenerative changes are seen in the hips, not well evaluated. XR/XR lumbar spine 2-3V IMPRESSION: Mild degenerative changes in the lumbar spine. Current pharm tx: Flexeril prn, Gabapentin, lidocaine patches, Diclofenac gel, Amitriptyline Medication: States taking medication as prescribed. Past ineffective med trials: Non-pharm tx: acupuncture Related Specialists: Functional Goals: Other substance use: Tobacco: no Marijuana: no Alcohol: no Illicit substances: no Review of Systems Constitutional: Negative. Respiratory: Negative. Cardiovascular: Negative. Musculoskeletal: Positive for arthralgias and back pain. Physical Exam Vitals and nursing note reviewed. Constitutional: Appearance: Normal appearance. HENT: Head: Normocephalic and atraumatic. Cardiovascular: Rate and Rhythm: Regular rhythm. Skin: General: Skin is warm and dry. Neurological: General: No focal deficit present. Mental Status: She is alert and oriented to person, place, and time. Psychiatric: Mood and Affect: Mood normal. Behavior: Behavior normal. Problem List Items Addressed This Visit Fibromyalgia - Primary Current Assessment & Plan Pt attended and participated in chronic pain group today - good engagement with group model of care - continue to use combination of non-pharmacological modalities to address pain - followup in one month for theme stress and pain ++ consider Cymbalta for her pain/depression. Stop Amitriptyline today, would need to coordinate with her psychiatrist about tapering Zoloft and ramping up Cymbalta Thrush, oral Relevant Medications nystatin (Mycostatin) [id number] UNIT/ML suspension Follow up: 1 month for Group Chronic Pain Clinic. Follow up as scheduled with PCP, sooner as needed. documented in this encounter Miscellaneous Notes * Assessment & Plan Note - Lissy rGacia MD - 11/11/2024 12:48 PM EST Associated Problem(s): Fibromyalgia Pt attended and participated in chronic pain group today - good engagement with group model of care - continue to use combination of non-pharmacological modalities to address pain - followup in one month for theme stress and pain ++ consider Cymbalta for her pain/depression. Stop Amitriptyline today, would need to coordinate with her psychiatrist about tapering Zoloft and ramping up Cymbalta documented in this encounter Plan of Treatment Upcoming Encounters Date Type Department Care Team (Late st Contact Info) Description 11/28/2024 9:00 AM EST Office Visit [facility] ADULT DENTAL [address] [place] [address] Wendi Pedroza 2024 9:00 AM EST Office Visit [facility] ADULT DENTAL [address] [place] [address] Wendi Pedroza 12/16/2024 3:45 PM EST Office Visit [facility] MEDICINE [address] [place] [address] Lissy Gracia MD [address] [place] [address] documented as of this encounter Visit Diagnoses Diagnosis Fibromyalgia- Primary Unspecified myalgia and myositis Thrush, oral documented in this encounter Additional Health Concerns Assessment Noted Time PHQ-9 Depression Total Score: 0 02/05/20 24 1:47 PM EDT documented as of this encounter Care Teams Umbrella Mender Relationship Specialty Start Date End Date Lissy Gracia MD [address] [place] [address] PCP - General Family Medicine 06/07/21 Reinaldo Persaud RN [address] [place] [address] Power Transformer RepairerBasket Machine Operator 11/05/24 documented as of this encounter
--- OUTSIDE RECORDS SUMMARY | 2024-11-19 15:34 | XMS_ITS | Encounter Summary ---
Author Organization [employer] Address [address] 7t [place] [address] Care Team Providers Care Cable Installation Manager Name Role Phone Lissy Gracia MD Primary Care Provider [phone] Encounter Details Date Type Department Care Team ([facility] st Contact Info) Description 10/30/2024 Orders Only [facility] External Provider, [facility] Social History Tobacco Use Types Packs/Day Years [...] Description 11/28/2024 9:00 AM EST Office Visit [facility] [address] [place] [address] Wendi Pedroza 2024 9:00 AM EST Office Visit [facility] [address] [place] [address] Wendi Pedroza 12/16/2024 3:45 PM EST Office Visit [facility] [address] [place] [address] 378[address] Lissy Gracia MD [address] [place] [address] documented as of this encounter Procedures Procedure Name Priority Date/Time Associated Diagnosis Comments XR CHEST 2 VIEWS Routine 10/30/2024 1:42 AM EST SARS COV2/INFLUENZA A/B AND RSV RNA QL NAAT Routine 10/30/2024 1:09 AM EST documented in this encounter Results * XR Chest 2 Views (10/30/2024 1:42 AM EST) Anatomical Region Laterality Modality Chest Radiographic Liss ging 10/30/2024 1:42 AM EST Narrative 10/30/2024 1:44 AM EST ? [facility] ?[address] ?[place] [address] ?XRay Report ? Signed ? Patient: Ibanez Mundo,Irene ?MR#: ?? [id number] ? : 1975 ?Acct:[id number] ? Age/Sex: 48 / F ?ADM Date: 10/30/24 ? Loc: HO.ED ? Attending Dr: ? Ordering Physician: Generic ED Physician ?? Date of Service: 10/30/24 ?? Procedure(s): XR chest 2V ?? Accession Number(s): [id number] ? cc: Generic ED Physician; [facility] ? CLINICAL HISTORY: cough, lung pain [...] DD/ 0142 ? TD/TT: 10/30/24 0142 ? Creping Machine Operator: ? Procedure Note [place], Image - 10/30/2024 [place] [address] XRay Report Signed Patient: Irene GarciaMR#: [id number] : 1975Acct:[id number] Age/Sex: 48 / FADM Date: 10/30/24 Loc: HO.ED Attending Dr: Ordering Physician: Generic ED Physician Date of Service: 10/30/24 Procedure(s): XR chest 2V Accession Number(s): [id number] cc: Generic ED Physician; [facility] CLINICAL HISTORY: cough, lung pain 2 [...] signed by Cristian Rodrigez MD in OV> 10/30/24142 DD/ 1 TD/TT: 10/30/24141 Creping Machine Operator: [facility] External Provider IMG XR PROCEDURES Final Result * SARS-CoV-2 RNA, Influenza A/B, and RSV RNA, Ql NAAT (10/30/2024 1:09 AM EST) Influenza A PCR NEGATIVE Negative [facility] Influenza B PCR NEGATIVE Negative [facility] Resp Syncy Virus RNA Qual PCR NEGATIVE Negative [facility] SARS COV2 PCR NEGATIVE Negative [facility] Comment:All test results mus t [...] use by authorized laboratories.Testing performed on the [employer] GeneXpert utilizingreal-time RT-PCR.All SARS CoV2 and positive influenza A/B results arereported to [facility]. 10/30/2024 1:09 AM EST 10/30/2024 1:12 AM EST Generic External Data Provider LAB MICROBIOLOGY - GENERAL ORDERABLES Final Result [facility] [address] [place] [address] [phone] documented in this encounter Visit Diagnoses Not on filedocumented in this encounter Additional Health Concerns Assessment Noted Time PHQ-9 Depression Total Score: 0 02/05/20 24 1:47 PM EDT documented as of this encounter Care Teams Cable Installation Manager Relationship Specialty Start Date End Date Lissy Gracia MD [address] [place] [address] PCP - General Family Medicine 06/07/21 documented as of this encounter
--- OUTSIDE RECORDS SUMMARY | 2024-11-19 15:34 | XMS_ITS | Encounter Summary ---
Author Organization [employer] Address [address] 7t [place] [address] Care Team Providers Care Customer Account Coordinator Name Role Phone Lissy Gracia MD Primary Care Provider [phone] Reinaldo Persaud RN Unavailable [phone] Reason for Visit * Reason Comments Acupuncture Encounter Details Date Type Department Care Team ([facility] st Contact Info) Description 11/07/2024 9:00 AM EST Office Visit [facility] MED[facility] [address] [place] [address] Irene Singletary MD [address] [place] [address] Chronic migraine without aura without status migrainosus, not intractable (Primary Dx); Anxiety Social History Tobacco Use Types Packs/Day Years [...] as of this encounter Progress Notes * Irene Singletary MD - 11/07/2024 9:00 AM EST Subjective Patient ID: Irene Flower is [...] Description 11/28/2024 9:00 AM EST Office Visit [facility] ADULT [facility] [address] [place] [address] Wendi Pedroza 2024 9:00 AM EST Office Visit [facility] AD[facility] [address] [place] [address] Pedroza, Wendi 12/16/2024 3:45 PM EST Office Visit [facility] MEDICINE [address] [place] [address] Lissy Gracia MD [address] [place] [address] documented as of this encounter Visit Diagnoses Diagnosis Chronic migraine without aura without status migrainosus, not intractable- Primary Anxiety Anxiety state, unspecified documented in this encounter Additional Health Concerns Assessment Noted Time PHQ-9 Depression Total Score: 0 02/05/20 24 1:47 PM EDT documented as of this encounter Care Teams Customer Account Coordinator Relationship Specialty Start Date End Date Lissy Gracia MD [address] [place] [address] PCP - General Family Medicine 06/07/21 Reinaldo Persaud RN [address] [place] [address] Gym TeacherPress Secretary 11/05/24 documented as of this encounter
--- OUTSIDE RECORDS SUMMARY | 2024-11-19 15:34 | XMS_ITS | Encounter Summary ---
Author Organization [employer] Address [address] 7t [place] [address] Care Team Providers Care Voice Professor Name Role Phone Clement [place] MD Primary Care Provider [phone] Reinaldo Persaud RN Unavailable [phone] Reason for Visit * Reason Comments Acupuncture Encounter Details Date Type Department Care Team ([facility] st Contact Info) Description 11/05/2024 1:15 PM EST Office Visit [facility] [address] [place] [address] Clement [place] MD [address] [place], [place] [phone] Fibromyalgia (Primary Dx); Chronic migraine without aura without status migrainosus, not intractable; Tendency toward bleeding easily (CMS/HCC) Social History Tobacco Use Types Packs/Day Years [...] as of this encounter Progress Notes * Clement [place] MD - 11/05/2024 1:15 PM EST Subjective Patient ID: Irene [...] treatments as desired. documented in this encounter Miscellaneous Notes * Addendum Note - Clement [place] MD - 11/05/2024 1:15 PM ESTAddended by: CLEMENT TRACY on: 11/05/2024 01:56 PM Modules accepted: Orders documented in this encounter Plan of Treatment Upcoming Encounters Date Type Department Care Team (Late st Contact Info) Description 11/28/2024 9:00 AM EST Office Visit [facility] ADULT DENTAL [address] [place] [address] Wendi Pedroza 2024 9:00 AM EST Office Visit [facility] ADULT DENTAL [address] [place] [address] Wendi Pedroza 12/16/2024 3:45 PM EST Office Visit [facility] MED[facility] [address] [place] [address] Clement [place] MD [address] [place] [address] Scheduled Orders Name Type Priority Associated Diagnoses Orde r Schedule Reticulocyte Count Lab Routine Tendency toward bleeding easily (CMS/HCC) Expected: 11/05/2024, Expires: 11/05/2025 Ferritin Lab Routine Tendency toward bleeding easily (CMS/HCC) Expected: 11/05/2024, Expires: 11/05/2025 documented as of this encounter Visit Diagnoses Diagnosis Fibromyalgia- Primary Unspecified myalgia and myositis Chronic migraine without aura without status migrainosus, not intractable Tendency toward bleeding easily (CMS/HCC) Unspecified hemorrhagic conditions documented in this encounter Additional Health Concerns Assessment Noted Time PHQ-9 Depression Total Score: 0 02/05/20 24 1:47 PM EDT documented as of this encounter Care Teams Voice Professor Relationship Specialty Start Date End Date Clement [place] MD [address] [place] [address] PCP - General Family Medicine 06/07/21 Reinaldo Persaud RN [address] [place] [address] DinkerPreprint Analyst 11/05/24 documented as of this encounter
--- OUTSIDE RECORDS SUMMARY | 2024-11-19 15:34 | XMS_ITS | Encounter Summary ---
Author Organization [employer] Address [address] 7t [place] [address] Care Team Providers Care Communications Field Technician Name Role Phone Lissy Gracia MD Primary Care Provider [phone] Reinaldo Persaud RN Unavailable [phone] Reason for Visit * Reason Comments Med Refill Encounter Details Date Type Department Care Team (Late st Contact Info) Description 06/13/2023 Refill [facility] [address] [place] [address] Chari Murray FNP [address] [place] [address] [place] [address] Mild persistent asthma without complication Social History Tobacco Use Types Packs/Day Years Used Date Smoking Tobacco: Never Smokeless Tobacco: Never Alcohol Use Standard Drinks/Week Comments Never 0 (1 standard drink = 0.6 oz pur e alcohol) Depression Answer Date Recorded Patient Health Questionnaire-9 Score 0 06/09/2023 Depression Answer Date Recorded Patient Health Questionnaire-2 Score 0 06/09/2023 Comments Unknown Sex and Gender Information Value [...] Description 11/28/2024 9:00 AM EST Office Visit [facility] [address] [place] [address] Wendi Pedroza 2024 9:00 AM EST Office Visit [facility] [address] [place] [address] Pedroza Wendi 12/16/2024 3:45 PM EST Office Visit [facility] [address] [place] [address] Lissy Gracia MD [address] [place] [address] documented as of this encounter Visit Diagnoses Diagnosis Mild persistent asthma without complication documented in this encounter Additional Health Concerns Assessment Noted Time PHQ-9 Depression Total Score: 0 06/09/20 3:37 PM EDT documented as of this encounter Care Teams Communications Field Technician Relationship Specialty Start Date End Date Lissy Gracia MD [address] [place] [address] PCP - General Family Medicine 06/07/21 Reinaldo Persaud RN [address] [place] [address] Top Distribution ExecutiveTrash Truck Driver 11/05/24 documented as of this encounter
--- OUTSIDE RECORDS SUMMARY | 2024-11-19 15:34 | XMS_ITS | Encounter Summary ---
Author Organization [employer] Address [address] [place] [address] Care Team Providers Care Inside Sales Manager Name Role Phone Lissy Gracia MD Primary Care Provider Reinaldo Persaud RN Unavailable [phone] Reason for Visit * Reason Comments Acupuncture Encounter Details Date Type Department Care Team ([facility] st Contact Info) Description 11/11/2024 9:15 AM EST Office Visit [facility] [address] [place] [address] Irene Singletary MD [address] [place] [address] Chronic migraine without aura without status migrainosus, [...] as of this encounter Progress Notes * Jennifer Huitron MA - 11/11/2024 9:15 AM EST Subjective Patient ID: Irene Flower [...] Description 11/28/2024 9:00 AM EST Office Visit [facility] ADULT D[facility] [address] [place] [address] Wendi Pedroza 2024 9:00 AM EST Office Visit [facility] [address] [place] [address] Pedroza Wendi 12/16/2024 3:45 PM EST Office Visit [facility] [address] [place] [address] Lissy Gracia MD [address] [place] [address] documented as of this encounter Visit Diagnoses Diagnosis Chronic migraine without aura without status migrainosus, not intractable- Primary Anxiety Anxiety state, unspecified documented in this encounter Additional Health Concerns Assessment Noted Time PHQ-9 Depression Total Score: 0 02/05/20 24 1:47 PM EDT documented as of this encounter Care Teams Inside Sales Manager Relationship Specialty Start Date End Date Lissy Gracia MD [address] [place] [address] PCP - General Family Medicine 06/07/21 Reinaldo Persaud RN [address] [place] [address] Manager AdvertisingUi Engineer 11/05/24 documented as of this encounter
--- OUTSIDE RECORDS SUMMARY | 2024-11-19 15:34 | XMS_ITS | Encounter Summary ---
Author Organization [employer] Address [address] 7t [place] [address] Care Team Providers Care Tobacco Grader Name Role Phone Lissy Gracia MD Primary Care Provider [phone] Reinaldo Persaud RN Unavailable [phone] Encounter Details Date Type Department Care Team (Latest Contact Info) Description 11/05/2024 Travel Social History Tobacco Use Types Packs/Day [...] Description 11/28/2024 9:00 AM EST Office Visit [facility] [address] [place] [address] Wendi Pedroza 2024 9:00 AM EST Office Visit [facility] [address] [place] [address] Wendi Pedroza 12/16/2024 3:45 PM EST Office Visit [facility] [address] [place] [address] Lissy Gracia MD [address] [place] [address] documented as of this encounter Visit Diagnoses Not on filedocumented in this encounter Additional Health Concerns Assessment Noted Time PHQ-9 Depression Total Score: 0 02/05/20 24 1:47 PM EDT documented as of this encounter Care Teams Tobacco Grader Relationship Specialty Start Date End Date Lissy Gracia MD [address] [place] [address] PCP - General Family Medicine 06/07/21 Reinaldo Persaud RN [address] [place] [address] Cad ProgrammerArmature Winder Repairer 11/05/24 documented as of this encounter
--- OUTSIDE RECORDS SUMMARY | 2024-11-19 15:34 | XMS_ITS | Encounter Summary ---
Author Organization [employer] Address [address] 7[address] [place] [address] Care Team Providers Care Asphalt Plant Laborer Name Role Phone Lissy Gracia MD Primary Care Provider [phone] Reason for Visit * Reason Comments Acupuncture Encounter Details Date Type Department Care Team ([facility] Contact Info) Description 10/31/2024 9:30 AM EST Office Visit [facility] [address] [place], [place] [phone] Ierne Singletary MD [address] [place] [address] Chronic migraine without aura without status migrainosus, [...] the past 12 months, has t he [employer], gas, oil or water Conserv[employer] threatened to shut off services in your [...] Progress Notes * Irene Singletary MD - 10/31/2024 9:30 AM EST Subjective Patient ID: Irene Flower [...] 9:00 AM EST Office Visit [facility] ADULT DENTAL [address] [place] [address] Wendi Pedroza 2024 9:00 AM EST Office Visit [facility] ADULT D[facility]AL [address] [place] [address] PedrozaLarissasa 12/16/2024 3:45 PM EST Office Visit [facility] MED[facility] [address] [place] [address] Lissy Gracia MD [address] [place] [address] documented as of this encounter Visit Diagnoses Diagnosis Chronic migraine without aura without status migrainosus, not intractable- Primary Anxiety Anxiety state, unspecified documented in this encounter Additional Health Concerns Assessment Noted Time PHQ-9 Depression Total Score: 0 02/05/20 24 1:47 PM EDT documented as of this encounter Care Teams Asphalt Plant Laborer Relationship Specialty Start Date End Date Lissy Gracia MD [address] [place] [address] PCP - General Family Medicine 06/07/21 documented as of this encounter
--- OUTSIDE RECORDS SUMMARY | 2024-11-19 15:34 | XMS_ITS | Encounter Summary ---
Author Organization [employer] Address [address] [place] [address] Care Team Providers Care Drink Box Mechanic Name Role Phone Lissy Gracia MD Primary Care Provider [phone] Reinaldo Persaud RN Unavailable [phone] Encounter Details Date Type Department Care Team (Latest Contact Info) Description 11/18/2024 Travel Social History Tobacco Use Types Packs/Day [...] Description 11/28/2024 9:00 AM EST Office Visit [facility] ADULT D[facility] [address] [place] [address] Wendi Pedroza 2024 9:00 AM EST Office Visit [facility] [address] [place] [address] Wendi Pedroza 12/16/2024 3:45 PM EST Office Visit [facility] [address] [place] [address] Lissy Gracia MD [address] [place] [address] documented as of this encounter Visit Diagnoses Not on filedocumented in this encounter Additional Health Concerns Assessment Noted Time PHQ-9 Depression Total Score: 0 02/05/20 24 1:47 PM EDT documented as of this encounter Care Teams Drink Box Mechanic Relationship Specialty Start Date End Date Lissy Gracia MD [address] [place] [address] PCP - General Family Medicine 06/07/21 Reinaldo Persaud RN [address] [place] [address] Plastic Design ApplierPneumatic Drum Sander 11/05/24 documented as of this encounter
--- OUTSIDE RECORDS SUMMARY | 2024-11-19 15:34 | XMS_ITS | Encounter Summary ---
Author Organization [employer] Address [address] 7t [place] [address] Care Team Providers Care Director Of Brand Marketing Name Role Phone Lissy Gracia MD Primary Care Provider [phone] Reinaldo Persaud RN Unavailable [phone] Reason for Referral * Consultation (STAT) - Closed Specialty Diagnoses / Procedures Referred By Contac t Referred To Contact Pulmonary Disease Diagnoses Mild persistent asthma without complication Lissy Gracia MD [address] [place] [address] Phone: tel: fax: [facility] Pulmonary [address] Floor [place], [place] Phone: tel: fax: Referral ID Status Reason Start Date Expiration Date V isits Requested Visits Authorized [id number] Closed Specialty Services Required 09/02/2024 09/02/2025 6 6 Encounter Details Date Type Department Care Team (Late st Contact Info) Description 09/02/2024 Orders Only [facility] [address] [place] [address] Lissy Gracia MD [address] [place] [address] [phone] Mild persistent asthma without complication (Primary Dx) Social History Tobacco Use Types [...] 11/28/2024 9:00 AM EST Office Visit [facility] [address] [place] [address] Wendi Pedroza 2024 9:00 AM EST Office Visit [facility] [address] [place] [address] Pedroza Wendi 12/16/2024 3:45 PM EST Office Visit [facility] [address] [place] [address] Lissy Gracia MD [address] [place] [address] Scheduled Referrals Name Type Priority Associated Diagnoses Orde r Schedule Referral to Pulmonology Outpatient Referral STAT Mild persistent asthma without complication Expected: 09/02/2024 (Approximate), Expires: 09/02/2025 documented as of this encounter Visit Diagnoses Diagnosis Mild persistent asthma without complication- Primary documented in this encounter Additional Health Concerns Assessment Noted Time PHQ-9 Depression Total Score: 0 02/05/20 24 1:47 PM EDT documented as of this encounter Care Teams Director Of Brand Marketing Relationship Specialty Start Date End Date Lissy Gracia MD [address] [place] [address] PCP - General Family Medicine 06/07/21 Reinaldo Persaud, LILIANE [address] [place] [address] Customer Support ProfessionalAuto Bumper Mechanic 11/05/24 documented as of this encounter
--- OUTSIDE RECORDS SUMMARY | 2024-11-19 15:35 | XMS_ITS | Encounter Summary ---
Author Organization [employer] Address [address] [place] [address] Care Team Providers Care Retail Administrative Assistant Name Role Phone Lissy Gracia MD Primary Care Provider Encounter Details Date Type Department Care Team ([facility] st Contact Info) Description 10/28/2024 11:00 AM EST Office Visit [facility] [address] [place] [address] [phone] Lissy Gracia MD [address] [place] [address] [phone] Fibromyalgia (Primary Dx); Bleeding from the ear, left; Chronic migraine without aura without status migrainosus, not intractable Social History Tobacco Use Types Packs/Day Years [...] the past 12 months, has t he [employer], gas, oil or water company threatened to [...] Progress Notes * Lissy Gracia MD - 10/28/2024 11:00 AM EST Subjective: Irene Flower is a 48 y.o. female w/ PMH asthma, depression, HEAVENLY , DM2, HTN, migraine, fibromyalgia who presents to the office for - Chronic Pain Clinic Group visits. Initial Group visit: 10/28/24 Group Visit Number: 1 Last PCP visit: Basil, 10/2024 Group Confidentiality last signed: 10/28/24 Group Topic: Introductions Today, she also endorses bleeding from her L ear, spontaneous, non painful and not associated with infectious symptoms. Chronic Pain History: Associated Diagnosis: fibromyalgia Relevant [...] normal. Problem List Items Addressed This Visit Chronic migraine without aura Fibromyalgia - Primary Current Assessment & Plan Pt attended and participated in chronic pain group today - good engagement with group model of care - continue to use combination of non-pharmacological modalities to address pain - followup in one month for theme stress and pain ++ consider Cymbalta for her pain/depression and stop AMitryptiline Other Visit Diagnoses Bleeding from the ear, left Relevant Orders Prothrombin Time-INR (Completed) CBC auto differential (Completed) Follow up: 1 month for Group Chronic Pain Clinic. Follow up as scheduled with PCP, sooner as needed. documented in this encounter Miscellaneous Notes * Assessment & Plan Note - Lissy Gracia MD - 10/30/2024 2:09 PM ESTAssociated Problem(s): Fibromyalgia Pt attended and participated in chronic pain group today - good engagement with group model of care - continue to use combination of non-pharmacological modalities to address pain - followup in one month for theme stress and pain ++ consider Cymbalta for her pain/depression and stop AMitryptiline * Result Encounter Note - Lissy Gracia MD - 10/28/2024 11:00 AM EST Please let patient know I will review all labs with her at next chronic pain or acupuncture session. Nothing urgent, but there might b e some insight into her bleeding. documented in this encounter Plan of Treatment Upcoming Encounters Date Type Department Care Team (Late st Contact Info) Description 11/28/2024 9:00 AM EST Office Visit [facility] [address] [place] [address] Wendi Pedroza 2024 9:00 AM EST Office Visit [facility] [address] [place] [address] Wendi Pedroza 12/16/2024 3:45 PM EST Office Visit [facility] [address] [place] [address] Lissy Gracia MD [address] [place] [address] documented as of this encounter Procedures Procedure Name Priority Date/Time Associated Diagnosis Comments CBC WITH AUTO DIFFERENTIAL Routine 10/28/2024 12:08 PM EST Bleeding from the ear, left PROTHROMBIN TIME-INR Routine 10/28/2024 12:08 PM EST Bleeding from the ear, left documented in this encounter Results * (ABNORMAL) CBC auto differential (10/28/2024 12:08 PM EST) White Blood Count 6.1 4.8 - 10.8 X10*3/uL [facility] Red Blood Count 4.85 4.20 - 5.50 X10*6/uL [facility] Hemoglobin 12.1 12.0 - 16.0 g/dl [facility] Hematocrit 37.4 37.0 - 47.0 % [facility] Mean Corpuscular Volume 77.1(L) 80.0 - 98.0 fL [facility] Mean Corpuscular Hemoglobin 24.9(L) 27.0 - 33.0 pg [facility] Mean Corpuscular HGB Conc 32.4 31.0 - 35.0 g/dl [facility] Red Cell Distribution Width 15.3 11.0 - 16.0 % [facility] Platelet Count 369 160 - 400 X10*3/uL [facility] Mean Platelet Volume 9.6 9.4 - 12.3 fL [facility] Neutrophils Percent Auto 56.2 45 - 73 % [facility] Imm Gran Pct Auto 0.3 0.0 - 0.4 % [facility] Lymphocytes Percent Auto 34.7 20 - 40 % [facility] Monocytes Percent Auto 7.1 2 - 11 % [facility] Eosinophils Percent Auto 1.2 0 - 4 % [facility] Basophils Percent Auto 0.5 0 - 2 % [facility] NRBC Pct Auto 0.0 0.0 - 0.2 /100WBC [facility] Neutrophils Absolute Auto 3.4 2.0 - 8.3 x10*3/uL [facility] Imm Gran Abs Auto 0.02 0.00 - 0.03 X10*3/uL [facility] Lymphocytes Absolute Auto 2.1 1.2 - 4.9 X10*3/uL [facility] Monocytes Absolute Auto 0.4 0.1 - 1.2 X10*3/uL [facility] Eosinophils Absolute Auto 0.1 0.0 - 0.4 X10*3/uL [facility] Basophils Absolute Auto 0.0 0.0 - 0.2 X10*3/uL [facility] NRBC Abs Auto 0.000 0.0 - 0.012 X10*3/uL [facility] Blood Venous blood specimen / Unknown 10/28/2024 12:08 PM EST 10/28/2024 1:08 PM EST us Lissy Gracia MD LAB BLOOD ORDERABLES Final Res ult [facility] [address] [place] [phone] [phone] * (ABNORMAL) Prothrombin Time-INR (10/28/2024 12:08 PM EST) Prothrombin Time 10.8(L) 10.9 - 12.4 SEC [facility] INTERNATIONAL NORM RATIO 0.9 0.9 - 1.1 [facility] Comment:INTERNATIONAL NORMAL IZED RATIO (INR) REFERENCE [...] MD LAB BLOOD ORDERABLES Final Res ult [facility] [address] [place] [phone] documented in this encounter Visit Diagnoses Diagnosis Fibromyalgia- Primary Unspecified myalgia and myositis Bleeding from the ear, left Chronic migraine without aura without status migrainosus, not intractable documented in this encounter Additional Health Concerns Assessment Noted Time PHQ-9 Depression Total Score: 0 02/05/20 24 1:47 PM EDT documented as of this encounter Care Teams Retail Administrative Assistant Relationship Specialty Start Date End Date Lissy Gracia MD [address] [place] [phone] PCP - General Family Medicine 06/07/21 documented as of this encounter
--- OUTSIDE RECORDS SUMMARY | 2024-11-19 15:35 | XMS_ITS | Encounter Summary ---
Author Organization [employer] Address [address] [facility] [address] [place] [address] Care Team Providers Care Slope Hoist Operator Name Role Phone Lissy Gracia MD Primary Care Provider [phone] Reason for Referral * Consultation (Routine) - Closed Specialty Diagnoses / Procedures Referred By Contac t Referred To Contact Physical Therapy Diagnoses Upper back pain Rosana Cotton MD [address] [place] [address] Phone: tel: fax: [facility] [address] [place] [address] Phone: tel: fax: Referral ID Status Reason Start Date Expiration Date V isits Requested Visits Authorized [id number] Closed Specialty Services Required 10/29/2024 10/29/2025 20 20 Reason for Visit * Reason Comments Back Pain Encounter Details Date Type Department Care Team (Late st Contact Info) Description 10/29/2024 8:40 AM EST Office Visit [facility] [address] [place] [address] [phone] Rosana Cotton MD [address] [place] [address] [phone] Upper back pain (Primary Dx); Chronic cough Social History Tobacco Use Types Packs/Day Years [...] Sign Reading Time Taken Comments Blood Pressure 144/92 10/29/2024 8:53 AM EST Pulse 85 10/29/2024 8:46 AM EST Temperature 36.8 ??C (98.2 ??F) 10/29/2024 8:46 AM ES T Respiratory Rate 16 10/29/2024 8:46 AM EST Oxygen Saturation 98% 10/29/2024 8:46 AM EST Inhaled Oxygen Concentration - - Weight 78.5 kg (173 lb) 10/29/2024 8:46 AM EST Height - - Body Mass Index 27.92 08/28/2024 11:36 AM EST documented in this encounter Progress Notes * Candice Villarreal MA - 10/29/2024 8:40 AM EST Subjective Patient ID: Irene Flower is a 48 y.o. female with PMHx type 2 diabetes and hypertension who presents to walk in clinic for Back Pain. Pt reports she has been coughing profusely. She also reports pain on her upper back and believes it's due to the coughing and notes the on set of the cough was month and a half ago. She notes she will often vomit because of her coughing. She reports her coughing is fine in the day but worsens at night. Pt notes she took Keflex in October. Pt went to her clinical nursing coordinator and will be going again on November 04. Pt reports having arthritis and also experiences migraines. Pt notes she lives with her mother, who was also coughing. Review of Systems Constitutional: Negative for fatigue, fever and unexpected weight change. Respiratory: Negative for cough. Cardiovascular: Negative for chest pain. Gastrointestinal: Negative for abdominal pain. Genitourinary: Negative for difficulty urinating. Objective Visit Vitals BP (!) 144/92 Pulse 85 Temp 98.2 ??F (36.8 ??C) (Oral) Resp 16 Body mass index is 27.92 kg/m??. Physical Exam Constitutional: Appearance: Normal appearance. Cardiovascular: Rate and Rhythm: Regular rhythm. Heart sounds: Normal heart sounds. Pulmonary: Effort: Pulmonary effort is normal. Breath sounds: Normal breath sounds. Abdominal: Tenderness: There is no abdominal tenderness. Musculoskeletal: Cervical back: Normal range of motion and neck supple. Neurological: General: No focal deficit present. Mental Status: She is alert. Psychiatric: Behavior: Behavior normal. Problem List Items Addressed This Visit Upper back pain - Primary Likely musculoskeletal. Non-focal, normal motor exam without [...] Seek medical attention for worsening symptoms. 10/29/24 Relevant Medications cyclobenzaprine (Flexeril) 10 MG tablet Other Relevant Orders Referral to Physical Therapy Chronic cough Likely pertussis. Under the care of pulmonology. - Next visit will be November 04, 2024 10/29/24 - ER precautions discussed. 10/29/24 - Seek medical attention for worsening symptoms. 10/29/24 -No evidence of acute disease process. Suspect pertussis. Symptoms mild. -Will treat with cyclobenzaprine (Flexeril) 10 MG tablet -ER precautions discussed. -Seek medical attention for worsening symptoms. I, Cadnice Villarreal, am serving as a scribe to document services personally performed by Dr. Rosana Cotton, based on the patient's response to questions by provider and providers statements to me. documented in this encounter Miscellaneous Notes * Assessment & Plan Note - Candice Villarreal MA - 10/29/2024 9:03 AM ESTAssociated Problem(s): Upper back pain Likely musculoskeletal. Non-focal, normal motor exam without [...] Seek medical attention for worsening symptoms. 10/29/24 * Assessment & Plan Note - Candice Villarreal MA - 10/29/2024 9:02 AM ESTAssociated Problem(s): Chronic cough Likely pertussis. Under the care of pulmonology. - Next visit will be November 04, 2024 10/29/24 - ER precautions discussed. 10/29/24 - Seek medical attention for worsening symptoms. 10/29/24 documented in this encounter Plan of Treatment Upcoming Encounters Date Type Department Care Team (Late st Contact Info) Description 11/28/2024 9:00 AM EST Office Visit [facility] [address] [place] [phone] Wendi Pedroza 2024 9:00 AM EST Office Visit [facility] [address] [place] [address] Wendi Pedroza 12/16/2024 3:45 PM EST Office Visit [facility] [address] [place] [phone] Lissy Gracia MD [address] [place] [phone] Scheduled Referrals Name Type Priority Associated Diagnoses Orde r Schedule Referral to Physical Therapy Outpatient Referral Routine Upper back pain Expected: 10/29/2024 (Approximate), Expires: 10/29/2025 documented as of this encounter Visit Diagnoses Diagnosis Upper back pain- Primary Unspecified backache Chronic cough Cough documented in this encounter Additional Health Concerns Assessment Noted Time PHQ-9 Depression Total Score: 0 02/05/20 24 1:47 PM EDT documented as of this encounter Care Teams Slope Hoist Operator Relationship Specialty Start Date End Date Lissy Gracia MD [address] [place] [address] PCP - General Family Medicine 06/07/21 documented as of this encounter
--- OUTSIDE RECORDS SUMMARY | 2024-11-19 15:35 | XMS_ITS | Encounter Summary ---
Author Organization [employer] Address [address] [place] [address] Care Team Providers Care Mining Engineer Name Role Phone Lissy Gracia MD Primary Care Provider [phone] Reason for Visit * Reason Onset Date Comments Pain Group Appt 10/21/2024 Encounter Details Date Type Department Care Team ([facility] st Contact Info) Description 10/21/2024 Telephone [facility] [address] [place], [place] [phone] Susana Casillas MA Pain Group Appt Social History Tobacco Use Types Packs/Day Years [...] encounter Miscellaneous Notes * Telephone Encounter - Susana Casillas MA - 10/21/2024 12:09 PM EST T/C placed spoke with pt, pt agreed to come in on 10/28/24 for pain group at 11am documented in this encounter Plan of Treatment Upcoming Encounters Date Type Department Care Team (Late st Contact Info) Description 11/28/2024 9:00 AM EST Office Visit [facility] [address] [place] [address] Wendi Pedroza 2024 9:00 AM EST Office Visit [facility] [address] [place] [address] Wendi Pedroza 12/16/2024 3:45 PM EST Office Visit [facility] [address] [place] [address] Lissy Gracia MD [address] [place] [address] documented as of this encounter Visit Diagnoses Not on filedocumented in this encounter Additional Health Concerns Assessment Noted Time PHQ-9 Depression Total Score: 0 02/05/20 24 1:47 PM EDT documented as of this encounter Care Teams Mining Engineer Relationship Specialty Start Date End Date Lissy Gracia MD [address] [place] [address] PCP - General Family Medicine 06/07/21 documented as of this encounter
--- OUTSIDE RECORDS SUMMARY | 2024-11-19 15:35 | XMS_ITS | Encounter Summary ---
Author Organization [employer] Address [address] [place] [address] Care Team Providers Care Information Systems Project Manager Name Role Phone Lissy Gracia MD Primary Care Provider [phone] Reason for Visit * Reason Comments Acupuncture Encounter Details Date Type Department Care Team ([facility] Contact Info) Description 10/24/2024 10:30 AM EST Office Visit [facility] [address] [place], [place] [phone] Irene Singletary MD [address] [place] [address] Chronic migraine without aura without status migrainosus, [...] the past 12 months, has t he [employer], gas, oil or water [employer] threatened to shut off services in your [...] Progress Notes * Irene Singletary MD - 10/24/2024 10:30 AM EST Subjective Patient ID: Irene Flower is a 48 y.o. female who presents for Acupuncture. Irene is here for acupuncture treatment #10 for anxiety and migraine TOMLINSON. She had been experiencing some pain reduction and stress relief with treatment, and near resolution of TOMLINSON symptoms, but had stopped coming due to the bitter cold. Now that she started back again earlier this week, she is feeling better. Review of Systems Objective Physical Exam Constitutional: [...] 11/28/2024 9:00 AM EST Office Visit [facility] [address] [place] [address] Wendi Pedroza 2024 9:00 AM EST Office Visit [facility] [address] [place] [address] Wendi Pedroza 12/16/2024 3:45 PM EST Office Visit [facility] [address] [place] [phone] Lissy Gracia MD [address] [place] [phone] documented as of this encounter Visit Diagnoses Diagnosis Chronic migraine without aura without status migrainosus, not intractable- Primary Anxiety Anxiety state, unspecified documented in this encounter Additional Health Concerns Assessment Noted Time PHQ-9 Depression Total Score: 0 02/05/20 24 1:47 PM EDT documented as of this encounter Care Teams Information Systems Project Manager Relationship Specialty Start Date End Date Lissy Gracia MD [address] [place] [phone] PCP - General Family Medicine 06/07/21 documented as of this encounter
--- OUTSIDE RECORDS SUMMARY | 2024-11-19 15:35 | XMS_ITS | Encounter Summary ---
Author Organization [employer] Address [address] [place] [address] Care Team Providers Care Clinical Therapist Name Role Phone Lissy Gracia MD Primary Care Provider [phone] Reason for Visit * Reason Comments Diarrhea Encounter Details Date Type Department Care Team (Latest Contact Info) Description 10/24/2024 2:00 PM EST Office Visit [facility] [address] [place], [place] [phone] Rosana Cotton MD [address] [place], [place] [phone] Viral gastroenteritis (Primary Dx); Cough in adult patient Social History Tobacco Use Types Packs/Day Years [...] Sign Reading Time Taken Comments Blood Pressure 141/89 10/24/2024 1:35 PM EST Pulse 99 10/24/2024 1:35 PM EST Temperature 37 ??C (98.6 ??F) 10/24/2024 1:35 PM EST Respiratory Rate 16 10/24/2024 1:35 PM EST Oxygen Saturation 97% 10/24/2024 1:35 PM EST Inhaled Oxygen Concentration - - Weight 79.4 kg (175 lb) 10/24/2024 1:35 PM EST Height - - Body Mass Index 28.25 08/28/2024 11:36 AM EST documented in this encounter Progress Notes * Lidia Easley - 10/24/2024 2:00 PM EST Subjective Patient ID: Irene Flower is a 48 y.o. female who presents to walk in clinic for Diarrhea. Seen at [facility] ER yesterday 10/23/24 for nausea, vomiting and diarrhea. Reported 3 days of cough and cold symptoms with generalized body aches and non-productive cough. Was afebrile. EKG was negative. Troponin negative. WBC 7.3, RSV, FLU and COVID negative. Normal LFTs and BGL was 260's. Dx with viral syndrome. Seen this morning 10/24/24 in regular clinic for acupuncture for chronic migraines. Pt reports she has had 5 days of cold symptoms with associated and nausea, vomiting, and diarrhea. She reports her cousin has Azeb virus and she saw her last week. Review of Systems Constitutional: Negative for fever and unexpected weight change. Respiratory: Positive for cough. Negative for shortness of breath. Cardiovascular: Negative for chest pain. Gastrointestinal: Positive for diarrhea, nausea and vomiting. Negative for abdominal pain. Genitourinary: Negative for difficulty urinating. Objective Visit Vitals BP (!) 141/89 (BP Location: Right arm, Patient Position: Sitting, BP Cuff Size: Adult) Pulse 99 Temp 98.6 ??F (37 ??C) (Oral) Resp 16 Body mass index is 28.25 kg/m??. Physical Exam Constitutional: Appearance: Normal appearance. HENT: Right Ear: Tympanic membrane normal. Left Ear: Tympanic membrane normal. Mouth/Throat: Pharynx: Oropharynx is clear. No oropharyngeal exudate. Eyes: Conjunctiva/sclera: Conjunctivae normal. Cardiovascular: Rate and Rhythm: Normal rate and regular rhythm. Heart sounds: Normal heart sounds. Pulmonary: Effort: Pulmonary effort is normal. Breath sounds: Normal breath sounds. Abdominal: General: Abdomen is flat. Musculoskeletal: Cervical back: Normal range of motion. No rigidity or tenderness. Neurological: Mental Status: She is alert. Psychiatric: Behavior: Behavior normal. Problem List Items Addressed This Visit Viral gastroenteritis - Primary -likely norovirus due to exposure -no evidence of dehydration on exam -no evidence of acute abdomen -supportive care with fluids, recommended zero sugar drinks. -ER precautions discussed Other Visit Diagnoses Cough in adult patient Relevant Orders POCT Rapid COVID Ag (Completed) Influenza A (ID NOW Rapid Molecular) (Completed) Influenza B (ID NOW Rapid Molecular) (Completed) -No evidence of acute disease process. Suspect Azeb virus. Symptoms mild. -recommended supportive care with fluid hydration. -ER precautions discussed. -Seek medical attention for worsening symptoms. I, Lidia Easley, am serving as a scribe to document services personally performed by Dr. Darby, based on the patient's response to questions by provider and providers statements to me. documented in this encounter Miscellaneous Notes * Assessment & Plan Note - Lidia Easley - 10/24/2024 1:52 PM ESTAssociated Problem(s): Viral gastroenteritis (Resolved 10/30/2024) -likely norovirus due to exposure -no evidence of dehydration on exam -no evidence of acute abdomen -supportive care with fluids, recommended zero sugar drinks. -ER precautions discussed documented in this encounter Plan of Treatment Upcoming Encounters Date Type Department Care Team (Late st Contact Info) Description 11/28/2024 9:00 AM EST Office Visit [facility] [address] [place] [address] Kasia Wendi 2024 9:00 AM EST Office Visit [facility] [address] [place] [address] Wendi Pedroza 12/16/2024 3:45 PM EST Office Visit [facility] [address] [place] [phone] Lissy Gracia MD [address] [place] [phone] documented as of this encounter Procedures Procedure Name Priority Date/Time Associated Diagnosis Comments POCT INFLUENZA B (ID NOW RAPID MOLECULAR) Routine 10/24/2024 1:48 PM EST Cough in adult patient POCT INFLUENZA A (ID NOW RAPID MOLECULAR) Routine 10/24/2024 1:48 PM EST Cough in adult patient POCT RAPID COVID ANTIGEN Routine 10/24/2024 1:40 PM EST Cough in adult patient documented in this encounter Results * Influenza B (ID NOW Rapid Molecular) (10/24/2024 1:48 PM EST) Pathologist [facility] Influenza B Negative Negative, Indeterminate [facility] Swab 10/24/2024 1:48 PM EST Rosana Cotton MD POINT OF CARE TEST ENTER/E DIT ORDERABLES Final Result Performing Organization Address City/[facility]/ZIP Co de Phone Number [facility] [address] [place] [phone] * Influenza A (ID NOW Rapid Molecular) (10/24/2024 1:48 PM EST) [facility] Influenza A Negative Negative, Indeterminate [facility] Swab 10/24/2024 1:48 PM EST Rosana Cotton MD POINT OF CARE TEST ENTER/E DIT ORDERABLES Final Result Performing Organization Address [facility] Co de Phone Number [facility] [address] [place] [phone] * POCT Rapid COVID Ag (10/24/2024 1:40 PM EST) [facility] Rapid COVID Ag Negative Swab 10/24/2024 1:40 PM EST Rosana Cotton MD POINT OF CARE TEST ENTER/E DIT ORDERABLES Final Result documented in this encounter Visit Diagnoses Diagnosis Viral gastroenteritis- Primary Intestinal infection due to other organism, NEC Cough in adult patient documented in this encounter Additional Health Concerns Assessment Noted Time PHQ-9 Depression Total Score: 0 02/05/20 24 1:47 PM EDT documented as of this encounter Care Teams Clinical Therapist Relationship Specialty Start Date End Date Lissy Gracia MD [address] [place] [phone] PCP - General Family Medicine 06/07/21 documented as of this encounter
--- OUTSIDE RECORDS SUMMARY | 2024-11-19 15:35 | XMS_ITS | Encounter Summary ---
Author Organization [employer] Address [address] [place] [address] Care Team Providers Care Powder Room Attendant Name Role Phone Lissy Gracia MD Primary Care Provider [phone] Reinaldo Persaud RN Unavailable [phone] Reason for Visit * Reason Comments Med Refill Encounter Details Date Type Department Care Team ([facility] st Contact Info) Description 08/19/2024 Refill [facility] [address] [place] [address] Adriana Ramesh MD [address] [place], [place] [phone] Type 2 diabetes mellitus with hyperglycemia, without long-term current use of insulin ([facility]) Social History Tobacco Use Types Packs/Day Years [...] 11/28/2024 9:00 AM EST Office Visit [facility] [address] [place] [address] Wendi Pedroza 2024 9:00 AM EST Office Visit [facility] [address] [place] [phone] Wendi Pedroza 12/16/2024 3:45 PM EST Office Visit [facility] [address] [place] [address] Lissy Gracia MD [address] [place] [address] documented as of this encounter Visit Diagnoses Diagnosis Type 2 diabetes mellitus with hyperglycemia, without long-term current use of insulin ([facility]) documented in this encounter Additional Health Concerns Assessment Noted Time PHQ-9 Depression Total Score: 0 02/05/20 24 1:47 PM EDT documented as of this encounter Care Teams Powder Room Attendant Relationship Specialty Start Date End Date Lissy Gracia MD [address] [place] [address] PCP - General Family Medicine 06/07/21 Reinaldo Persaud RN [address] [place] [phone] Wire DropperCompounding Assistant 11/05/24 documented as of this encounter
--- OUTSIDE RECORDS SUMMARY | 2024-11-19 15:35 | XMS_ITS | Encounter Summary ---
Author Organization [employer] Address [address] [place] [address] Care Team Providers Care Patient Services Assistant Name Role Phone Lissy Gracia MD Primary Care Provider [phone] Reinaldo Persaud RN Unavailable [phone] Reason for Visit * Reason Onset Date Comments Lab Orders 11/18/2024 Encounter Details Date Type Department Care Team ([facility] st Contact Info) Description 11/18/2024 Telephone [facility] [address] [place] [address] Lissy Gracia MD [address] [place] [address] Lab Orders Social History Tobacco Use Types Packs/Day Years [...] t he electric, gas, oil or water [employer] threatened to shut off services in your [...] as of this encounter Miscellaneous Notes * Addendum Note - Romeo Reed RN - 11/18/2024 10:57 AM ESTAddended by: ROMEO REED on: 11/18/2024 10:57 AM Modules accepted: Orders * Telephone Encounter - Romeo Reed RN - 11/18/2024 10:55 AM EST TC placed to patient [phone] to inform Tspot order placed and patient can come to the lab to complete BW however patient did not answer, RN left requesting CB to red team nurses. Patient to f/u PRN. If patient returns call, please inform [facility]spot order has been placed * Telephone Encounter - Kay Lord - 11/18/2024 10:26 AM EST Pt walked in requesting tb for work. Pt has no history of positive results. documented in this encounter Plan of Treatment Upcoming Encounters Date Type Department Care Team (Late st Contact Info) Description 11/28/2024 9:00 AM EST Office Visit [facility] [address] [place] [address] Pedroza, Wendi 2024 9:00 AM EST Office Visit [facility] [address] [place] [address] Pedroza, Wendi 12/16/2024 3:45 PM EST Office Visit [facility] [address] [place] [address] Lissy Gracia MD [address] [place] [address] Scheduled Orders Name Type Priority Associated Diagnoses Orde r Schedule T-SPOT??.TB Lab Routine Encounter for screening for respiratory tuberculosis Expected: 11/18/2024 (Approximate), Expires: 11/18/2025 documented as of this encounter Visit Diagnoses Diagnosis Encounter for screening for respiratory tuberculosis documented in this encounter Additional Health Concerns Assessment Noted Time PHQ-9 Depression Total Score: 0 02/05/20 24 1:47 PM EDT documented as of this encounter Care Teams Patient Services Assistant Relationship Specialty Start Date End Date Lissy Gracia MD [address] [place] [address] PCP - General Family Medicine 06/07/21 Reinaldo Persaud RN [address] [place] [phone] Drill DoctorNuclear Physician 11/05/24 documented as of this encounter
--- OUTSIDE RECORDS SUMMARY | 2024-11-19 15:35 | XMS_ITS | Encounter Summary ---
Author Organization [employer] Address [address] [place] [address] Care Team Providers Care Air Quality Engineer Name Role Phone Lissy Gracia MD Primary Care Provider [phone] Encounter Details Date Type Department Care Team ([facility] st Contact Info) Description 10/22/2024 1:15 PM EST Office Visit [facility] [address] [place], [place] [phone] Lissy Gracia MD [address] [place], [place] [phone] Chronic migraine without aura without status migrainosus, not intractable (Primary Dx); Type 2 diabetes mellitus without complication, without long-term current use of insulin ([facility]); Cellulitis of head except face; Mild persistent asthma without complication; Diabetes due to underlying condition w oth circulatory comp ([facility]) Social History Tobacco Use Types Packs/Day Years [...] Progress Notes * Lissy Gracia MD - 10/22/2024 1:15 PM EST Subjective Patient ID: Irene Flower is a 48 y.o. female who presents for Acupuncture. Irene is here for acupuncture treatment #9 for anxiety and migraine [place]. She is experiencing some stress reduction and pain relief. Her breathing has been improving steadily and she is not having as many migraines. Review of Systems Constitutional: Negative. Respiratory: Positive for shortness of breath. Musculoskeletal: Positive for arthralgias, back pain and myalgias. Neurological: Positive for headaches. Objective Physical Exam Constitutional: Appearance: Normal appearance. [...] Plan Note - Lissy Gracia MD - 10/22/2024 2:14 PM ESTAssociated Problem(s): Type 2 diabetes mellitus (CMS/HCC) Stop Glipizide 10mg in the morning as patient appears to be having hypoglycemic episodes, includingshaking in [place] where she hit her head documented in this encounter Plan of Treatment Upcoming Encounters Date Type Department Care Team (Late st Contact Info) Description 11/28/2024 9:00 AM EST Office Visit [facility] [address] [place] [address] Wendi Pedroza 2024 9:00 AM EST Office Visit [facility] [address] [place] [address] Wendi Pedroza 12/16/2024 3:45 PM EST Office Visit [facility] [address] [place] [address] Lissy Gracia MD [address] [place] [address] documented as of this encounter Procedures Procedure Name Priority Date/Time Associated Diagnosis Comments HEMOGLOBIN A1C Routine 10/22/2024 3:49 PM EST Type 2 diabetes mellitus without complication, without long-term current use of insulin (CMS/HCC) COMPREHENSIVE METABOLIC PANEL Routine 10/22/2024 3:49 PM EST Type 2 diabetes mellitus without complication, without long-term current use of insulin (CMS/HCC) documented in this encounter Results * (ABNORMAL) Comprehensive Metabolic Panel (10/22/2024 3:49 PM EST) Sodium 137 135 - 145 mmol/L [facility] Potassium 3.9 3.3 - 5.1 mmol/L [facility] Chloride 109(H) 96 - 108 mmol/L [facility] Carbon Dioxide 23 22 - 29 mmol/L [facility] Anion Gap 9(L) 12 - 20 [facility] Urea Nitrogen (BUN) 15 9 - 16 mg/dL [facility] Creatinine, Serum 0.69 0.5 - 1.4 mg/dL [facility] Estimated Glomerular Filt Rate >60 [facility] Comment:Chronic Kidney Disea se: Estimated GFR < 60 mL/min/1.87k8Hjiisr Kidney Disease: Estimated GFR < 15 mL/min/1.73m2 Glucose 182(H) 60 - 115 mg/dL [facility] Calcium 9.0 8.4 - 10.2 mg/dL [facility] Bilirubin, Total 0.2 0.0 - 1.0 mg/dL [facility] Aspartate Amino Transferase 21 5 - 31 U/L [facility] Alanine Aminotransferase 26 0 - 31 U/L [facility] Total Protein 7.2 6.5 - 8.0 g/dL [facility] Albumin Level 4.3 3.5 - 5.0 g/dL [facility] Alkaline Phosphatase 90 39 - 117 U/L [facility] Blood Venous blood specimen / Unknown 10/22/2024 3:49 PM EST 10/22/2024 5:46 PM EST us Lissy Gracia MD LAB BLOOD ORDERABLES Final Res ult [facility] [address] [place] [phone] * (ABNORMAL) Hemoglobin A1c (10/22/2024 3:49 PM EST) Hemoglobin A1c 8.7(H) <6.0 % [facility] Comment:Hemoglobin A1C Refer ence Range Adults: 4.8 - 6.0 % Non diabetic: < 6.0 % Goal: < 7.0 %Additional Action Suggested: > 8.0 %Note: Hemoglobin A1c results are invalid for patients with abnormal amounts of HbF. Blood transfusions may impact the HbA1c concentration in the patient sample. Estimated Average Glucose 203 mg/dL [facility] Comment:eAG = Estimated ave rage glucose which is %A1C expressed asaverage glucose, using the formula of the [id number]-[id number] Glucose study (ADAG), Diabetes Care, Vol.31,#8,May. 2007 Blood Venous blood specimen / Unknown 10/22/2024 3:49 PM EST 10/22/2024 5:46 PM EST us Lissy Gracia MD LAB BLOOD ORDERABLES Final Res ult [facility] [address] [place] [address] [phone] documented in this encounter Visit Diagnoses Diagnosis Chronic migraine without aura without status migrainosus, not intractable- Primary Type 2 diabetes mellitus without complication, without long-term current use of insulin (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) documented in this encounter Additional Health Concerns Assessment Noted Time PHQ-9 Depression Total Score: 0 02/05/20 24 1:47 PM EDT documented as of this encounter Care Teams Air Quality Engineer Relationship Specialty Start Date End Date Lissy Gracia MD [address] [place] [phone] PCP - General Family Medicine 06/07/21 documented as of this encounter
--- OUTSIDE RECORDS SUMMARY | 2024-11-19 15:35 | XMS_ITS | Encounter Summary ---
Author Organization [employer] Address [address] [place] [address] Care Team Providers Care Maple Products Maker Name Role Phone Lissy Gracia MD Primary Care Provider [phone] Reinaldo Persaud RN Unavailable [phone] Encounter Details Date Type Department Care Team ([facility] st Contact Info) Description 11/14/2024 1:40 PM EST Office Visit [facility] [address] [place] [address] Candice Moreland DO [address] [place], [place] [phone] Mild persistent asthma without complication (Primary Dx) [...] Sign Reading Time Taken Comments Blood Pressure 168/88 11/14/2024 1:30 PM EST Pulse 89 11/14/2024 1:30 PM EST Temperature 36.2 ??C (97.1 ??F) 11/14/2024 1:30 PM ES T Respiratory Rate 19 11/14/2024 1:30 PM EST Oxygen Saturation 98% 11/14/2024 1:30 PM EST Inhaled Oxygen Concentration - - Weight 77.7 kg (171 lb 6.4 oz) 11/14/2024 1:30 P M EST Height - - Body Mass Index 27.66 08/28/2024 11:36 AM EST documented in this encounter Progress Notes * Kenneth Gutierrez - 11/14/2024 1:40 PM EST SUBJECTIVE Irene Flower is a 48 y.o. female who presents for Sick Visit. She presents to [place] today c/o SOB and sore throat x 1 day. She was seen by me last week in [place] and treated for asthma exacerbation triggered by extreme cold. She says that the health center called housing and the got very scared and her heat was repaired. She feels that something is wrong with her heater because it's still cold. She says she was feeling out of breath and and ST this morning while she was cleaning at home but her sx have since gone away. She says that she is not having any sx at the moment. She has breo pump that she uses daily, which she she initially felt was helping her but now feels that it is helping less. She was supposed to have f/u with pulm but they moved her appt to December. History provided by: Patient translator/interpreter used: Yes Review of Systems Constitutional: Negative for activity change, appetite change, chills and fever. HENT: Negative for congestion, sneezing and sore throat. Respiratory: Negative for cough and shortness of breath. Cardiovascular: Negative for chest pain, palpitations and [...] complication Fibromyalgia Upper back pain Chronic cough Thrush, oral No Known Allergies OBJECTIVE Visit Vitals BP (!) 168/88 (BP Location: Right arm, Patient Position: Sitting, BP Cuff Size: Adult) Pulse 89 Temp 97.1 ??F (36.2 ??C) (Temporal) Resp 19 Wt 171 lb 6.4 oz (77.7 kg) SpO2 98% BMI 27.66 kg/m?? Smoking Status Never BSA 1.9 m?? Physical Exam Constitutional: General: She is not in acute distress. Appearance: Normal appearance. Cardiovascular: Rate and Rhythm: Normal rate and regular rhythm. Heart sounds: Normal heart sounds. No murmur heard. Pulmonary: Effort: Pulmonary effort is normal. No tachypnea, accessory muscle usage or respiratory distress. Breath sounds: Normal breath sounds. No decreased air movement or transmitted upper airway sounds. No wheezing or rhonchi. Comments: Speaking in full paragraphs without difficulty Neurological: General: No focal deficit present. Mental Status: She is alert and oriented to person, place, and time. Cranial Nerves: No cranial nerve deficit. Motor: No weakness. Gait: Gait normal. Psychiatric: Mood and Affect: Mood normal. Office Visit on 11/14/2024 Component Date Value Ref Range Status Rapid COVID Ag 11/14/2024 Negative Final Rapid Strep A Screen 11/14/2024 Negative Negative, None Detected Final Influenza A 11/14/2024 Negative Negative, Indeterminate Final Influenza B 11/14/2024 Negative Negative, Indeterminate Final Assessment/Plan Diagnoses and all orders for this visit: Mild persistent asthma without complication No sign of exacerbation -provided reassurance -cont breo daily -cont albuterol prn -advised avoid harsh cleansers/wear facemask while cleaning -encouraged schedule sooner f/u with pulm -advised rtc if sx recur, she agrees with plans --Follow-up with PCP [...] times daily., Disp: 100 each, Rfl: 11 ARIPiprazole (Abilify) 2 MG tablet, Take 1 [...] / PANICO, Disp: 180 tablet, Rfl: 3 cyclobenzaprine (Flexeril) 10 MG [...] BEFORE BREAKFAST, Disp: 90 tablet, Rfl: 3 lidocaine (Lidoderm) 5 % patch, APPLY 1 [...] WITH MEALS, Disp: 360 tablet, Rfl: 3 Miconazole 7 2 % vaginal cream, INSERT 1 APPLICATORFUL VAGINALLY AT BEDTIME FOR 7 DAYS, Disp: , Rfl: Mometasone Furoate (Asmanex HFA) 100 MCG/ACT aerosol, Inhale 1 puff 2 times daily. Inhale 1 puff inthe morning and at bedtime. Rinse mouth with water after use to reduce aftertaste and incidence of candidiasis. Do not swallow., Disp: 13 g, Rfl: 11 nystatin (Mycostatin) 765663 UNIT/ML suspension, Take 4 mL (400,000 Units) by mouth 4 times daily for 14 days., Disp: 224 mL, Rfl: 0 ondansetron ODT (Zofran-ODT) 4 MG disintegrating tablet, DISSOLVE 1 TABLET ENCIMA DE LA LENGUA EVERY 8 HOURS DIRECTED, Disp: 20 tablet, Rfl: 3 Pain Reliever Plus 250-250-65 MG tablet, TAKE 2 TABLETS BY MOUTH EVERY 6 HOURS NEEDED FOR HEADACHE, Disp: , Rfl: sertraline (Zoloft) 100 MG tablet, TAKE 1 AND 1/2 TABLETS BY MOUTH IN THE MORNING, Disp: , Rfl: Spacer/Aero-Holding Chambers (Pro Comfort Spacer Adult) misc, For use with inhaler., Disp: 1 each, Rfl: 0 TRUEplus Lancets 33G misc, Apply 1 each topically 2 times daily., Disp: 100 each, Rfl: 11 Scribe Attestation: Kneneth Keene, am serving as a scribe to document services personally performed by Candice Hatch, based on the patient's response to questions by provider and provider's statements to me. 11/14/24 2:22 PM Physicians Attestation: Candice Keene DO, have reviewed the information by the scribe, Kenneth Gutierrez, for accuracy and agree with its content. documented in this encounter Plan of Treatment Upcoming Encounters Date Type Department Care Team (Late st Contact Info) Description 11/28/2024 9:00 AM EST Office Visit [facility] [address] [place] [address] Wendi Pedroza 2024 9:00 AM EST Office Visit [facility] [address] [place] [address] Wendi Pedroza 12/16/2024 3:45 PM EST Office Visit [facility] [address] [place] [address] Lissy Gracia MD [address] [place] [address] documented as of this encounter Procedures Procedure [...] PM EST Mild persistent asthma without complication documented in this encounter Results * Influenza B (ID NOW Rapid Molecular) (11/14/2024 1:52 PM EST) [facility] Influenza B Negative Negative, Indeterminate [facility] Swab 11/14/2024 1:52 PM EST Candice Moreland DO POINT OF CARE TEST ENTER/GOPAL T ORDERABLES Final Result Performing Organization Address City/[facility]/ZIP Co de Phone Number [facility] [address] [place] [phone] * Influenza A (ID NOW Rapid Molecular) (11/14/2024 1:52 PM EST) [facility] Influenza A Negative Negative, Indeterminate [facility] Swab 11/14/2024 1:52 PM EST Candice Moreland DO POINT OF CARE TEST ENTER/GOPAL T ORDERABLES Final Result Performing Organization Address [facility] Co de Phone Number [facility] [address] [place] [phone] * POCT rapid strep A manually resulted (11/14/2024 1:52 PM EST) [facility] Rapid Strep A Screen Negative Negative, None Detected [facility] Swab 11/14/2024 1:52 PM EST Candice Moreland DO POINT OF CARE TEST ENTER/GOPAL T ORDERABLES Final Result Performing Organization Address [facility] Co de Phone Number [facility] [address] [place] [phone] * POCT Rapid COVID Ag (11/14/2024 1:52 PM EST) [facility] Rapid COVID Ag Negative [facility] Swab 11/14/2024 1:52 PM EST us Candice Aniceto DO POINT OF CARE TEST ENTER/GOPAL T ORDERABLES Final Result [facility] [address] [place] [address] [phone] documented in this encounter Visit Diagnoses Diagnosis Mild persistent asthma without complication- Primary documented in this encounter Additional Health Concerns Assessment Noted Time PHQ-9 Depression Total Score: 0 02/05/20 24 1:47 PM EDT documented as of this encounter Care Teams Maple Products Maker Relationship Specialty Start Date End Date Lissy Gracia MD [address] [place] [address] PCP - General Family Medicine 06/07/21 Reinaldo Persaud RN [address] [place] [address] Cash ManagerNoc Engineer 11/05/24 documented as of this encounter
--- OUTSIDE RECORDS SUMMARY | 2024-11-19 15:35 | XMS_ITS | Encounter Summary ---
Author Organization [employer] Address [address] 7t [place] [address] Care Team Providers Care Motion Pictures Cartoonist Name Role Phone Lissy Gracia MD Primary Care Provider [phone] Reinaldo Persaud RN Unavailable [phone] Reason for Visit * Reason Onset Date Comments Care Management 11/15/2024 C3CM- f/u call Encounter Details Date Type Department Care Team ([facility] st Contact Info) Description 11/15/2024 Telephone [facility] MEDICINE [address] [place], [place] [phone] Reinaldo Persaud, RN [address], [place] [phone] Care Management (C3CM- f/u call) Social History Tobacco Use Types Packs/Day Years [...] the past 12 months, has t he [employer], gas, oil or water [employer] threatened to shut off services in your [...] Telephone Encounter - Reinaldo Persaud RN - 11/15/2024 10:50 AM EST CODY Persaud RN placed outbound call to patient. Patient's name, and address confirmed. Patient states she has been seen in the walk in [place] x2 with asthma/ respiratory symptoms. Patient was last seen on 11/14/24. Per patient, stopped by her Cripple Chaser's office this morning to report an increase in respiratory symptoms and was advised that one of the nurses will be placing a call to her. Patient is awaiting return call. Patient does have an appt with Pulmonology on 12/23/24 at 3:45pm but is hoping to schedule a sooner f/u visit. CODY called Pulmonology. Advised a call was placed to the patient about an hour ago. Advised that patient return call to their office so that they can further assist. CODY informed patient of this. She agrees to return call to office. CM reminded patient of her scheduled appt with dental on 11/19. She verbalizes understanding and denies any barriers to attending. CM also informed patient that General Surgery was contacted and she has an appt scheduled on 11/27/24 at 11:00am at [address] [place] [address] in [place]. She verbalizes understanding. Patient also aware of her scheduled visit with [facility] on 11/26/24 at 3:30pm. Patient states she would like to hold off on scheduling visits with PT at this time as she has several appt for herself and her mom for the month of November. Per pt, BP was elevated at her visit yesterday. She states she has a BP monitor. Per patient, will usually only monitor BP when she is not feeling well. She states that she tends to become more anxious if she is monitoring BP and sugars constantly. Per patient, has kept herappts with her therapist. She reports taking all of her medications as directed and denies any concerns or side effects. No further questions or concerns. CM reinforced direct contact information for any additional questions or concerns. Education provided on Walk-In Urgent Care located in [facility] of [facility]. Patient provided with after-hours line for [facility], , which offer night time triage service and option to transfer to migration specialist provider if needed. Patient verbalizes understanding, and able to r epeat back to senior technical writer. A follow up call will be placed within 10 days, patient agrees with plan. CM called GI. Patient scheduled for f/u 01/31/25 at 2:30pm. They will mail an appt reminder card outto the patient at the address on file. documented in this encounter Plan of Treatment Upcoming Encounters Date Type Department Care Team (Late st Contact Info) Description 11/28/2024 9:00 AM EST Office Visit [facility] ADULT DENTAL [address] [place] [address] Wendi Pedroza 2024 9:00 AM EST Office Visit [facility] ADULT DENTAL [address] [place] [address] Wendi Pedroza 12/16/2024 3:45 PM EST Office Visit [facility] MED[facility]INE [address] [place] [address] Lissy Gracia MD [address] [place] [address] documented as of this encounter Visit Diagnoses Not on filedocumented in this encounter Additional Health Concerns Assessment Noted Time PHQ-9 Depression Total Score: 0 02/05/20 24 1:47 PM EDT documented as of this encounter Care Teams Motion Pictures Cartoonist Relationship Specialty Start Date End Date Lissy Gracia MD [address] [place] [address] PCP - General Family Medicine 06/07/21 Reinaldo Persaud RN [address] [place] [address] Stripper ApprenticeSquaring Shear Operator 11/05/24 documented as of this encounter
--- OUTSIDE RECORDS SUMMARY | 2024-11-19 15:35 | XMS_ITS | Encounter Summary ---
Author Organization [employer] Address [address] 7[address] [place] [address] Care Team Providers Care Book Reviewer Name Role Phone Lissy Gracia MD Primary Care Provider [phone] Encounter Details Date Type Department Care Team (Latest Contact Info) Description 10/31/2024 Travel Social History Tobacco Use Types Packs/Day [...] Office Visit [facility] ADULT DENTAL [address] [place] [address] Wendi Pedroza 2024 9:00 AM EST Office Visit [facility] ADULT DENTAL [address] [place] [address] Wendi Pedroza 12/16/2024 3:45 PM EST Office Visit [facility] MEDICINE [address] [place] [address] Lissy Gracia MD [address] [place] [address] documented as of this encounter Visit Diagnoses Not on filedocumented in this encounter Additional Health Concerns Assessment Noted Time PHQ-9 Depression Total Score: 0 02/05/20 24 1:47 PM EDT documented as of this encounter Care Teams Book Reviewer Relationship Specialty Start Date End Date Lissy Gracia MD [address] [place] [address] PCP - General Family Medicine 06/07/21 documented as of this encounter
--- OUTSIDE RECORDS SUMMARY | 2024-11-19 15:35 | XMS_ITS | Encounter Summary ---
Author Organization [employer] [facility] Address [address] 7t [place] [address] Care Team Providers Care Insecticide Maker Name Role Phone Lissy Gracia MD Primary Care Provider [phone] Reinaldo Persaud RN Unavailable [phone] Reason for Visit * Reason Comments Transition Of Care (Tcm) Encounter Details Date Type Department Care Team ([facility] st Contact Info) Description 11/19/2024 Patient Outreach [facility] MEDICINE [address] [place] [address] Lissy Gracia MD [address] [place] [address] Transition Of Care (Tcm) Social History Tobacco Use Types Packs/Day Years [...] as of this encounter Progress Notes * Rj Salvador RN - 11/19/2024 10:33 AM EST 11/19/24 1034 Hospital Discharges and Admission for [facility] Type of Visit Emergency Department Date of Admission/Visit 11/18/24 (2:52 pm) Date of Discharge 11/18/24 (9:17 pm) Facility [facility] Diagnosis N/A Disposition Discharged Home * Anitha Reed RN - 11/19/2024 10:33 AM EST Transition of Care Note Irene is going through a recent transition of care. Hospital Discharges and Admission for [facility] Type of Visit: Emergency Department Date of Admission/Visit: 11/18/24 Date of Discharge: 11/18/24 Facility[place] [facility] Diagnosis: N/A Disposition: Left Without Being Seen Follow-Up Actions Follow-Up Needed: None/self-monitoring Follow-Up Outcome: Spoke to Patient Initial Contact Date: 11/19/24 The full discharge summary does not exist d/t patient LWBS. Recent Visits Date Type Provider Dept 11/18/24 Office Visit Irene Singletary MD [facility] Medicine 11/14/24 Office Visit Candice Moreland, DO [facility]In [facility] 11/12/24 Office Visit Lissy Gracia MD [facility] Medicine 11/11/24 Office Visit Irene Singletary MD [facility] Medicine 11/11/24 Office Visit Lissy Gracia MD [facility] Medicine 11/07/24 Office Visit Candice Moreland, DO [facility] 11/07/24 Office Visit Irene Singletary MD [facility] Medicine 11/05/24 Office Visit Lissy Gracia MD [facility] Medicine 10/31/24 Office Visit Irene Singletary MD [facility] Medicine 10/29/24 Office Visit Rosana Cotton MD [facility] Showing recent visits within past 540 days with a meds authorizing provider and meeting all other requirements Future Appointments Date Type Provider Dept 12/16/24 Appointment Lissy Gracia MD [facility] Medicine Showing future appointments within next 150 days with a meds authorizing provider and meeting all other requirements TC placed to patient [phone] to status check. Patient reports she went to the ED d/t an anxiety attack. Patient reports she was at the ER for >5 hours and was not called back therefore she left. Patient confirms she has a psychiatrist (Selina Campbell) and a therapist (Aissatou) at [facility].Patient reports she called this morning and informed them of her anxiety attack. Patient is NOT SOB during call and denies any chest pain. Patient advised to come to [facility] or ED if she develops chest pain or SOB. Patient verbalized understanding. Patient to f/u PRN. documented in this encounter Plan of Treatment Upcoming Encounters Date Type Department Care Team (Late st Contact Info) Description 11/28/2024 9:00 AM EST Office Visit [facility] ADULT DENTAL [address] [place] [address] Wendi Pedroza 2024 9:00 AM EST Office Visit [facility] ADULT DENTAL [address] [place] [address] Wendi Pedroza 12/16/2024 3:45 PM EST Office Visit [facility] MED[facility] [address] [place] [address] Lissy Gracia MD [address] [place] [address] documented as of this encounter Visit Diagnoses Not on filedocumented in this encounter Additional Health Concerns Assessment Noted Time PHQ-9 Depression Total Score: 0 02/05/20 24 1:47 PM EDT documented as of this encounter Care Teams Insecticide Maker Relationship Specialty Start Date End Date Lissy Gracia MD [address] [place] [address] PCP - General Family Medicine 06/07/21 Reinaldo Persaud RN [address] [place] [address] Loading Shovel OilerAsphalt Smoother 11/05/24 documented as of this encounter
--- OUTSIDE RECORDS SUMMARY | 2024-11-19 15:35 | XMS_ITS | Encounter Summary ---
Author Organization [employer] Address [address] [facility] [address] [facility] 7t [place] [address] Care Team Providers Care Digestion Operator Name Role Phone Lissy Gracia MD Primary Care Provider [phone] Encounter Details Date Type Department Care Team (Latest Contact Info) Description 10/22/2024 Travel Social History Tobacco Use Types Packs/Day [...] 9:00 AM EST Office Visit [facility] ADULT DENTAL [address] [place] [address] Wendi Pedroza 2024 9:00 AM EST Office Visit [facility] ADULT DENTAL [address] [place] [address] Wendi Pedroza 12/16/2024 3:45 PM EST Office Visit [facility] MEDICINE [address] [place] [address] Lissy Gracia MD [address] [place] [address] documented as of this encounter Visit Diagnoses Not on filedocumented in this encounter Additional Health Concerns Assessment Noted Time PHQ-9 Depression Total Score: 0 02/05/20 24 1:47 PM EDT documented as of this encounter Care Teams Digestion Operator Relationship Specialty Start Date End Date Lissy Gracia MD [address] [place] [address] PCP - General Family Medicine 06/07/21 documented as of this encounter
--- OUTSIDE RECORDS SUMMARY | 2024-11-19 15:35 | XMS_ITS | Encounter Summary ---
Author Organization [employer] Address [address] 7t [place] [address] Care Team Providers Care Colored Leather Setter Name Role Phone Lissy rGacia MD Primary Care Provider [phone] Reason for Visit * Reason Comments Care Coordination C3 ASHLEY bruce telephone call outreach Encounter Details Date Type Department Care Team (Latest Contact Info) Description 10/30/2024 Patient Outreach [facility] MEDICINE [address] [place] [address] Lissy Gracia MD [address] [place] [address] Care Coordination (C3 ASHLEY Ziegler telephone call outreach) Social History Tobacco [...] encounter Progress Notes * Ammy Ziegler - 10/30/2024 11:14 AM EST CHW Ammy Ziegler, placed outbound call to patient introducing herself from [facility] CM Department, in regards to offering services. Patient's name and was confirmed. Patient agrees toparticipate in program. Appt. for initial assessment scheduled for 11/05/2024 @ 1:00PM. CHW reinforced direct contact information or for any additional questions or concerns and extended clinic hours on Mondays and Wednesdays, and Walk-In Urgent Care Located in [facility] of [facility]. Patient provided with after-hours line for [facility], , which offer night time triage service and option to transfer to teletypesetter monitor provider if needed. Patient verbalizes understanding, and able to repeat back to telegraphic typewriter operator chief. documented in this encounter Plan of Treatment Upcoming Encounters Date Type Department Care Team (Late st Contact Info) Description 11/28/2024 9:00 AM EST Office Visit [facility] ADULT DENTAL [address] [place] [address] Wendi Pedroza 2024 9:00 AM EST Office Visit [facility] ADULT DENTAL [address] [place] [address] PedrozaLarissasa 12/16/2024 3:45 PM EST Office Visit [facility] MEDICINE [address] [place] [address] Lissy Gracia MD [address] [place] [address] documented as of this encounter Visit Diagnoses Not on filedocumented in this encounter Additional Health Concerns Assessment Noted Time PHQ-9 Depression Total Score: 0 02/05/20 24 1:47 PM EDT documented as of this encounter Care Teams Colored Leather Setter Relationship Specialty Start Date End Date Lissy Gracia MD [address] [place] [address] PCP - General Family Medicine 06/07/21 documented as of this encounter
--- OUTSIDE RECORDS SUMMARY | 2024-11-19 15:35 | XMS_ITS | Encounter Summary ---
Author Organization [employer] Address [address] 7t [place] [address] Care Team Providers Care Polishing Machine Operator Helper Name Role Phone Lissy Gracia MD Primary Care Provider [phone] Encounter Details Date Type Department Care Team (Latest Contact Info) Description 10/24/2024 Travel Social History Tobacco Use Types Packs/Day [...] Description 11/28/2024 9:00 AM EST Office Visit [facility] ADULT DENTAL [address] [place] [address] Wendi Pedroza 2024 9:00 AM EST Office Visit [facility] ADULT D[facility]AL [address] [place] [address] Wendi Pedroza 12/16/2024 3:45 PM EST Office Visit [facility] MEDICINE [address] [place] [address] Lissy Gracia MD [address] [place] [address] documented as of this encounter Visit Diagnoses Not on filedocumented in this encounter Additional Health Concerns Assessment Noted Time PHQ-9 Depression Total Score: 0 02/05/20 24 1:47 PM EDT documented as of this encounter Care Teams Polishing Machine Operator Helper Relationship Specialty Start Date End Date Lissy Gracia MD [address] [place] [address] PCP - General Family Medicine 06/07/21 documented as of this encounter
--- OUTSIDE RECORDS SUMMARY | 2024-11-19 15:35 | XMS_ITS | Clinical Summary ---
Author Organization [facility] Address [address] [place] [address] Care Team Providers Care Home Therapy Clinician Name Role Phone Unavailable Primary Care Provider Unavailabl e Allergies No known active allergies Medications acetaminophen (Tylenol) 325 MG tablet Active albuterol HFA (ProAir HFA) 108 (90 Base) MCG/ACT inhaler Acti ve atorvastatin (LIPITOR) 20 MG tablet Take 1 tablet by mouth 1 (one) time each day Active busPIRone (BUSPAR) 5 MG tablet Take 1 tablet by mouth 3 (three) times a day Active Butalbital-APAP -Caffeine (Fioricet) 50-300-40 MG capsule Take 1 capsule by mouth every 4 (four) hours Active cetirizine (ZyrTEC ALLERGY) 10 MG tablet Take 1 tablet by mouth 1 (one) time each day Active cyclobenzaprine (FLEXERIL) 5 MG tablet Take 1 tablet by mouth 3 (three) times a day Active docusate sodium (Colace) 100 MG capsule Take 1 capsule by mouth 2 (two) times a day Active ferrous sulfate 325 (65 Fe) MG tablet Take 1 tablet by mouth 2 (two) times a day Active fluconazole (DIFLUCAN) 150 MG tablet Take 1 tablet by mouth 1 (one) time each day Active furosemide (Lasix) 20 MG tablet Take 1 tablet by mouth 1 (one) time each day Active gabapentin (NEURONTIN) 300 MG capsule Take 1 capsule by mouth 3 (three) times a day Active glipiZIDE (GLUCOTROL XL) 2.5 MG 24 hr tablet Take 1 tablet by mouth 1 (one) time each day Active ipratropium (ATROVENT) 0.06 % nasal spray Active lisinopril (PRINIVIL,ZESTR IL) 5 MG tablet Take 1 tablet by mouth 1 (one) time each day Active metFORMIN (GLUCOPHAGE) 500 MG tablet Take 2 tablets by mouth 2 (two) times a day Active naproxen (NAPROSYN) 250 MG tablet Take 1 tablet by mouth 2 (two) times a day Active omeprazole (PriLOSEC) [address] capsule Take 1 capsule by mouth 1 (one) time each day Active sertraline (Zoloft) 50 MG tablet Take 2 tablets by mouth 1 (one) time each day Active Active Problems Problem Noted Date Diagnosed Date Blood in urine 12/02/2020 Hypertensive disorder 12/02/2020 Family History Medical History Relation Comments Cancer Mother Heart disease Mother Hypertension Mother Kidney disease Sibling 1 Diabetes Sibling 2 Relation Status Comments Father Unknown Mother Alive Sibling 1 Sibling 2 Social History Tobacco Use Types Packs/Day Years Used Date Smoking Tobacco: Never Alcohol Use Standard Drinks/Week Comments No 0 (1 standard drink = 0.6 oz pur e alcohol) Comments Unknown Sex and Gender Information Value Date Recorded Sex Assigned at Not on file Legal Sex Female 4:54 PM EST Gender Identity Not on file Sexual Orientation Not on file Last Filed Vital Signs Vital Sign Reading Time Taken Comments Blood Pressure 120/70 07/11/2019 12:00 PM EDT Pulse 100 07/11/2019 12:00 PM EDT Temperature - - Respiratory Rate - - Oxygen Saturation - - Inhaled Oxygen Concentration - - Weight 81.1 kg (178 lb 12.8 oz) 019 12:00 PM EDT Height 167.6 cm (5' 6 ) 07/11/2019 12:0 0 PM EDT Body Mass Index 28.86 07/11/2019 12:00 PM EDT Plan of Treatment Health Maintenance Due Date Last Done Comments Breast Cancer Screening 1973 Hepatitis B Vaccine (1 of 3 - 19+ 3-dose series) 1992 Colorectal Cancer Screening: Annual FOBT 2022 Colorectal Cancer Screening: Colonoscopy 2022 Colorectal Cancer Screening: Sigmoidoscopy 2022 Influenza Vaccine (#1) 2024 Pneumococcal Vaccine: Pediat rics (0 to 5 Years) and At-Risk Patients (6 to 64 Years) Aged Out No longer eligible b ased on patient's age to complete this topic [place]
--- OUTSIDE RECORDS SUMMARY | 2024-11-19 15:35 | XMS_ITS | Encounter Summary ---
Author Organization [employer] Address [address] 7t [place] [address] Care Team Providers Care Lace Pinner Name Role Phone Lissy Gracia MD Primary Care Provider [phone] Reinaldo Persaud RN Unavailable [phone] Reason for Visit * Reason Onset Date Comments Appointment Request 10/17/2023 Encounter Details Date Type Department Care Team ([facility] st Contact Info) Description 10/17/2023 Telephone [facility] MED[facility]INE [address] [place], [place] [phone] Lissy Gracia MD [address] [place], [place] [phone] Appointment Request Social History Tobacco Use Types Packs/Day Years Used Date Smoking Tobacco: Never Passive Smoke Exposure: Never Smokeless Tobacco: Never Alcohol Use Standard Drinks/Week Comments Never 0 (1 standard drink = 0.6 oz pur e alcohol) Depression Answer Date Recorded Patient Health Questionnaire-9 Score 0 06/09/2023 Housing Stability Answer Date Recorded What is [...] from getting things needed for daily living? No 08/10/2023 Utilities Answer Date Recorded In the past [...] encounter Miscellaneous Notes * Telephone Encounter - Amanda Oseguera - 10/17/2023 9:02 AM EST Tc from pt requesting to r/s appt on 10/13/2023 for follow up . Please contact pt @ [phone] Vietnamese Speaker documented in this encounter Plan of Treatment Upcoming Encounters Date Type Department Care Team (Late st Contact Info) Description 11/28/2024 9:00 AM EST Office Visit [facility] ADULT DENTAL [address] [place] [address] Wendi Pedroza 2024 9:00 AM EST Office Visit [facility] ADULT DENTAL [address] [place] [address] Wendi Pedroza 12/16/2024 3:45 PM EST Office Visit [facility] MEDICINE [address] [place] [address] Lissy Gracia MD [address] [place] [address] documented as of this encounter Visit Diagnoses Not on filedocumented in this encounter Additional Health Concerns Assessment Noted Time PHQ-9 Depression Total Score: 0 06/09/20 23 3:37 PM EDT documented as of this encounter Care Teams Lace Pinner Relationship Specialty Start Date End Date Lissy Gracia MD [address] [place] [address] PCP - General Family Medicine 06/07/21 Reinaldo Persaud RN [address] [place] [address] LUIS Boles [phone] Utility ArboristElectronics Worker 11/05/24 documented as of this encounter
--- OUTSIDE RECORDS SUMMARY | 2024-11-19 15:35 | XMS_ITS | Encounter Summary ---
Author Organization [employer] Address [address] [place] [address] Care Team Providers Care Career Portals Teacher Name Role Phone Lissy Gracia MD Primary Care Provider [phone] Reinaldo Persaud RN Unavailable [phone] Encounter Details Date Type Department Care Team (Latest Contact Info) Description 11/19/2024 Travel Social History Tobacco Use Types Packs/Day [...] AM EST Office Visit [facility] ADULT DENTAL [address] [place] [address] Wendi Pedroza 2024 9:00 AM EST Office Visit [facility] ADULT DENTAL [address] [place] [address] Wendi Pedroza 12/16/2024 3:45 PM EST Office Visit [facility] MED[facility]INE [address] [place] [address] Lissy Gracia MD [address] [place] [address] documented as of this encounter Visit Diagnoses Not on filedocumented in this encounter Additional Health Concerns Assessment Noted Time PHQ-9 Depression Total Score: 0 02/05/20 24 1:47 PM EDT documented as of this encounter Care Teams Career Portals Teacher Relationship Specialty Start Date End Date Lissy Gracia MD [address] [place] [address] PCP - General Family Medicine 06/07/21 Reinaldo Persaud RN [address] [place] [address] Wagon WasherRfid Specialist 11/05/24 documented as of this encounter
--- OUTSIDE RECORDS SUMMARY | 2024-11-19 15:35 | XMS_ITS | Encounter Summary ---
Author Organization [employer] Address [address] 7t [place] [address] Care Team Providers Care Hand Bindery Assembly Worker Name Role Phone Lissy Gracia MD Primary Care Provider [phone] Encounter Details Date Type Department Care Team ([facility] st Contact Info) Description 10/23/2024 Orders Only GENERIC EXTERNAL DATA DEPARTMENT [...] AM EST Office Visit [facility] ADULT DENTAL [address] [place] [address] Wendi Pedroza 2024 9:00 AM EST Office Visit [facility] ADULT D[facility]AL [address] [place] [address] Wendi Pedroza 12/16/2024 3:45 PM EST Office Visit [facility] MEDICINE [address] [place] [address] Lissy Gracia MD [address] [place] [address] documented as of this encounter Procedures Procedure Name Priority Date/Time Associated Diagnosis Comments HIGH SENSITIVITY TROPONIN I Routine 10/23/2024 10:11 PM EST documented in this encounter Results * High Sensitivity Troponin I (10/23/2024 10:11 PM EST) TROPONIN I HIGH SENSITIVITY <2.7 <3.5 - 17.0 ng/L [facility] Comment:The Patino high sens itivity Troponin-I results should beused in conjunction with other diagnostic information suchas ECG, clinical observations and information, and patientsymptoms to aid in the diagnosis of RI. 10/23/2024 10:1 1 PM EST 10/24/2024 1:15 AM EST us Generic External Data Provider LAB BLOOD ORDERAB LES Final Result [facility] [address] [place] [address] [phone] documented in this encounter Visit Diagnoses Not on filedocumented in this encounter Additional Health Concerns Assessment Noted Time PHQ-9 Depression Total Score: 0 02/05/20 24 1:47 PM EDT documented as of this encounter Care Teams Hand Bindery Assembly Worker Relationship Specialty Start Date End Date Lissy Gracia MD [address] [place] [address] PCP - General Family Medicine 06/07/21 documented as of this encounter
--- OUTSIDE RECORDS SUMMARY | 2024-11-19 15:35 | XMS_ITS | Encounter Summary ---
Author Organization [employer] Address [address] 7t [place] [address] Care Team Providers Care Cableman Name Role Phone Lissy Gracia MD Primary Care Provider [phone] Reinaldo Persaud RN Unavailable [phone] Encounter Details Date Type Department Care Team ([facility] st Contact Info) Description 01/19/2024 Telephone [facility] MEDICINE [address] [place], [place] [phone] Lissy Gracia MD [address] [place] [address] Social History Tobacco Use Types Packs/Day Years [...] Description 11/28/2024 9:00 AM EST Office Visit [facility] ADULT DENTAL [address] [place] [address] Kasia Wendi 2024 9:00 AM EST Office Visit [facility] ADULT DENTAL [address] [place] [address] Larissa Pedrozasa 12/16/2024 3:45 PM EST Office Visit [facility] MEDICINE [address] [place] [address] Lissy Gracia MD [address] [place] [address] documented as of this encounter Visit Diagnoses Not on filedocumented in this encounter Additional Health Concerns Assessment Noted Time PHQ-9 Depression Total Score: 0 06/09/20 23 3:37 PM EDT documented as of this encounter Care Teams Cableman Relationship Specialty Start Date End Date Lissy Gracia MD [address] [place] [address] PCP - General Family Medicine 06/07/21 Reinaldo Persaud RN [address] [place] [address] Superintendent Marine Oil TerminalStone Breaker 11/05/24 documented as of this encounter
--- OUTSIDE RECORDS SUMMARY | 2024-11-19 15:35 | XMS_ITS | Encounter Summary ---
Author Organization [employer] Address [address] 7[address] [place] [address] Care Team Providers Care Aircraft Mechanic Structures Name Role Phone Lissy Gracia MD Primary Care Provider [phone] Reinaldo Persaud RN Unavailable [phone] Reason for Visit * Reason Comments Med Refill Encounter Details Date Type Department Care Team ([facility] st Contact Info) Description 11/19/2024 Refill [facility] MEDICINE [address] [place] [address] Lissy Gracia MD [address] [place] [address] Social History Tobacco Use Types Packs/Day Years [...] the past 12 months, has t he [employer], gas, oil or water company threatened to [...] AM EST Office Visit [facility] ADULT DENTAL [address] [place] [address] Wendi Pedroza 2024 9:00 AM EST Office Visit [facility] ADULT DENTAL [address] [place] [address] Wendi Pedroza 12/16/2024 3:45 PM EST Office Visit [facility] MEDICINE [address] [place] [address] Lissy Gracia MD [address] [place] [address] documented as of this encounter Visit Diagnoses Not on filedocumented in this encounter Additional Health Concerns Assessment Noted Time PHQ-9 Depression Total Score: 0 02/05/20 24 1:47 PM EDT documented as of this encounter Care Teams Aircraft Mechanic Structures Relationship Specialty Start Date End Date Lissy Gracia MD [address] [place] [address] PCP - General Family Medicine 06/07/21 Reinaldo Persaud RN [address] [place] [address] Ironworker ForemanProp Sawyer 11/05/24 documented as of this encounter
--- OUTSIDE RECORDS SUMMARY | 2024-11-19 15:35 | XMS_ITS | Encounter Summary ---
Author Organization [facility] Address [address] 7t [place] [address] Care Team Providers Care X Ray Nurse Name Role Phone Lissy Gracia MD Primary Care Provider [phone] Reinaldo Persaud RN Unavailable [phone] Encounter Details Date Type Department Care Team (Latest Contact Info) Description 04/10/2019 Abstract [facility] CONVERSIONS Dental, Provider, DDS Social History Tobacco Use Types Packs/Day Years Used Date Smoking Tobacco: Never Assessed Comments Unknown Sex and Gender Information Value [...] Description 11/28/2024 9:00 AM EST Office Visit [facility] ADULT DENTAL [address] [place] [address] Wendi Pedroza 2024 9:00 AM EST Office Visit [facility] ADULT DENTAL [address] [place] [address] Wendi Pedroza 12/16/2024 3:45 PM EST Office Visit [facility] MEDICINE [address] [place] [address] Lissy Gracia MD [address] [place] [address] documented as of this encounter Visit Diagnoses Not on filedocumented in this encounter Care Teams X Ray Nurse Relationship Specialty Start Date End Date Lissy Gracia MD [address] [place] [address] PCP - General Family Medicine 06/07/21 Reinaldo Persaud, LILIANE [address] [place] [address] Case WorkerCommunications Department Head 11/05/24 documented as of this encounter
--- OUTSIDE RECORDS SUMMARY | 2024-11-19 15:35 | XMS_ITS | Encounter Summary ---
Author Organization [employer] Address [address] 7t [place] [address] Care Team Providers Care Car Bracer Name Role Phone Lissy Gracia MD Primary Care Provider [phone] Reinaldo Persaud RN Unavailable [phone] Encounter Details Date Type Department Care Team ([facility] st Contact Info) Description 11/19/2024 1:15 PM EST Office Visit [facility] MEDICINE [address] [place] [address] Lissy Gracia MD [address] [place], [place] [phone] Fibromyalgia (Primary Dx); Chronic migraine without aura [...] the past 12 months, has t he [employer], gas, oil or water [employer] threatened to shut off services in your [...] Progress Notes * Lissy Gracia MD - 11/19/2024 1:15 PM EST Subjective Patient ID: Irene Flower is a 48 y.o. female who presents for Acupuncture. Irene is here for ongoing acupuncture treatments for anxiety and migraine [place]. She is feeling better with decreased pain and stress. She has not been sleeping well in the past few days, due to asthma and SOB, this is worsening her migraines. Review of Systems Constitutional: Negative. HENT: Positive for congestion. Respiratory: Positive for cough and shortness of breath. Cardiovascular: Negative. Gastrointestinal: Negative. Musculoskeletal: Positive for arthralgias. Objective Physical Exam Constitutional: Appearance: Normal appearance. [...] Description 11/28/2024 9:00 AM EST Office Visit [facility] ADULT DENTAL [address] [place] [address] Larissa Pedrozasa 2024 9:00 AM EST Office Visit [facility] ADULT DENTAL [address] [place] [address] Kasia Wendi 12/16/2024 3:45 PM EST Office Visit [facility] MEDICINE [address] [place] [address] Lissy Gracia MD [address] [place] [address] documented as of this encounter Visit Diagnoses Diagnosis Fibromyalgia- Primary Unspecified myalgia and myositis Chronic migraine without aura without status migrainosus, not intractable documented in this encounter Additional Health Concerns Assessment Noted Time PHQ-9 Depression Total Score: 0 02/05/20 24 1:47 PM EDT documented as of this encounter Care Teams Car Bracer Relationship Specialty Start Date End Date Lissy Gracia MD [address] [place] [address] PCP - General Family Medicine 06/07/21 Reinaldo Persaud RN [address] [place] [address] Reliability ManagerCar Bracer 11/05/24 documented as of this encounter
--- OUTSIDE RECORDS SUMMARY | 2024-11-19 15:35 | XMS_ITS | Clinical Summary ---
Author Organization [facility] it[facility] Address [address] [place] [address] Care Team Providers Care Computer Systems Support Specialist Name Role Phone Unavailable Primary Care Provider Unavailabl e Social History Tobacco Use Types Packs/Day Years Used Date Smoking Tobacco: Never Assessed Sex and Gender Information Value Date Recorded Sex Assigned at Not on file Gender Identity Not on file Sexual Orientation Not on file Plan of Treatment Health Maintenance Due Date Last Done Comments Breast Cancer Screening 1973 DTaP,Tdap,and Td Vaccines (1 - Tdap) 1992 Hepatitis B Vaccines (1 of 3 - 19+ 3-dose series) 1992 Cervical Cancer Screening: P ap Smear 1994 Zoster Vaccines (1 of 2) 2023 COVID-19 Vaccine (1 - 2023-2 5 season) 2024 Influenza Vaccine (#1) 2024 HIB Vaccines Aged Out No longer eligi [...] on patient's age to complete this topic MMR Vaccines Aged Out No longer eligi ble based on patient's age to complete this topic Meningococcal ACWY Vaccine Aged Out N o longer eligible based on patient's age to complete this topic Pneumococcal Vaccine: Pediat rics (0 to 5 Years) and At-Risk Patients (6 to 64 Years) Aged Out No longer eligible b ased on patient's age to complete this topic RSV Immunization Patients Un nazia 20 months Aged Out No longer eligible b ased on patient's age to complete this topic Varicella Vaccines Aged Out No longer eligible based on patient's age to complete this topic
--- OUTSIDE RECORDS SUMMARY | 2024-11-19 15:35 | XMS_ITS | Encounter Summary ---
Author Organization [employer] Address [address] 7t [place] [address] Care Team Providers Care Business Development Assistant Name Role Phone Lissy Gracia MD Primary Care Provider [phone] Reason for Visit * Reason Comments Acupuncture Encounter Details Date Type Department Care Team ([facility] Contact Info) Description 10/28/2024 9:00 AM EST Office Visit [facility] MEDICINE [address] [place] [address] Irene Singletary MD [address] [place] [address] Chronic migraine without aura without status migrainosus, [...] the past 12 months, has t he [employer], gas, oil or water [employer] threatened to shut off services in your [...] Progress Notes * Irene Singletary MD - 10/28/2024 9:00 AM EST Subjective Patient ID: Irene [...] Description 11/28/2024 9:00 AM EST Office Visit [facility] ADULT DENTAL [address] [place] [address] Wendi Pedroza 2024 9:00 AM EST Office Visit [facility] ADULT DENTAL [address] [place] [address] PedrozaLarissasa 12/16/2024 3:45 PM EST Office Visit [facility] MEDICINE [address] [place] [address] Lissy Gracia MD [address] [place] [address] documented as of this encounter Visit Diagnoses Diagnosis Chronic migraine without aura without status migrainosus, not intractable- Primary Anxiety Anxiety state, unspecified documented in this encounter Additional Health Concerns Assessment Noted Time PHQ-9 Depression Total Score: 0 02/05/20 24 1:47 PM EDT documented as of this encounter Care Teams Business Development Assistant Relationship Specialty Start Date End Date Lissy Gracia MD [address] [place] [address] PCP - General Family Medicine 06/07/21 documented as of this encounter
--- OUTSIDE RECORDS SUMMARY | 2024-11-19 15:35 | XMS_ITS | Encounter Summary ---
Author Organization [employer] Address [address] 7t [place] [address] Care Team Providers Care Supervisor Hide House Name Role Phone Lissy Gracia MD Primary Care Provider [phone] Reason for Visit * Reason Onset Date Comments Nurse Triage 10/24/2024 Encounter Details Date Type Department Care Team ([facility] st Contact Info) Description 10/24/2024 Telephone [facility] MEDICINE [address] [place], [place] [phone] Lissy Gracia MD [address] [place] [address] Nurse Triage Social History Tobacco Use Types [...] encounter Miscellaneous Notes * Telephone Encounter - Rossy Daniel RN - 10/24/2024 10:56 AM EST Tc to pt via [facility] hvac service tech id: [id number] to status check regarding c/o of vomiting, fever, diarrhea and severe headaches. No answer, lvm to return call and ask to speak to red team nurses. * Telephone Encounter - Anahi Wheeler LPN - 10/24/2024 9:59 AM EST Triage call returned with [facility] # [id number] [place]. No answer at time of call. Voice mail left to return call to [phone] Team tasked to follow post ED visit. * Telephone Encounter - Sarah Collazo - 10/24/2024 9:08 AM EST Symptoms: Diarrhea, Vomiting, Fever Outcome: Talk to a nurse or provider within 15 minutes Reason: Severe headache The caller accepted this outcome. documented in this encounter Plan of Treatment Upcoming Encounters Date Type Department Care Team (Late st Contact Info) Description 11/28/2024 9:00 AM EST Office Visit [facility] ADULT DENTAL [address] [place] [address] PedrozaWendi 2024 9:00 AM EST Office Visit [facility] ADULT DENTAL [address] [place] [address] Wendi Pedroza 12/16/2024 3:45 PM EST Office Visit [facility] MEDICINE [address] [place] [address] Lissy Gracia MD [address] [place] [address] documented as of this encounter Visit Diagnoses Not on filedocumented in this encounter Additional Health Concerns Assessment Noted Time PHQ-9 Depression Total Score: 0 02/05/20 24 1:47 PM EDT documented as of this encounter Care Teams Supervisor Hide House Relationship Specialty Start Date End Date Lissy Gracia MD [address] [place] [address] PCP - General Family Medicine 06/07/21 documented as of this encounter
--- OUTSIDE RECORDS SUMMARY | 2024-11-19 15:35 | XMS_ITS | Encounter Summary ---
Author Organization [employer] Address [address] 7[address] [place] [address] Care Team Providers Care Senior Database Programmer Name Role Phone Lissy Gracia MD Primary Care Provider [phone] Encounter Details Date Type Department Care Team (Latest Contact Info) Description 10/28/2024 Travel Social History Tobacco Use Types Packs/Day [...] AM EST Office Visit [facility] ADULT DENTAL [address] [place] [address] Wendi Pedroza 2024 9:00 AM EST Office Visit [facility] ADULT DENTAL [address] [place] [address] Wendi Pedroza 12/16/2024 3:45 PM EST Office Visit [facility] MEDICINE [address] [place] [address] Lissy Gracia MD [address] [place] [address] documented as of this encounter Visit Diagnoses Not on filedocumented in this encounter Additional Health Concerns Assessment Noted Time PHQ-9 Depression Total Score: 0 02/05/20 24 1:47 PM EDT documented as of this encounter Care Teams Senior Database Programmer Relationship Specialty Start Date End Date Lissy Gracia MD [address] [place] [address] PCP - General Family Medicine 06/07/21 documented as of this encounter
--- OUTSIDE RECORDS SUMMARY | 2024-11-19 15:35 | XMS_ITS | Encounter Summary ---
Author Organization [employer] Address [address] [facility] [address] [place] [address] Care Team Providers Care Family Preservation Officer Name Role Phone Lissy Gracia MD Primary Care Provider [phone] Reinaldo Persaud RN Unavailable [phone] Reason for Visit * Reason Comments Med Refill Encounter Details Date Type Department Care Team ([facility] st Contact Info) Description 12/20/2023 Refill [facility] MEDICINE [address] [place], [place] [phone] Lissy Gracia MD [address] [place], [place] [phone] Chronic bilateral low back pain, unspecified whether sciatica present Social History Tobacco Use Types Packs/Day Years [...] 11/28/2024 9:00 AM EST Office Visit [facility] ADULT DENTAL [address] [place] [address] Kasia Wendi 2024 9:00 AM EST Office Visit [facility] ADULT DENTAL [address] [place] [address] Kasia Wendi 12/16/2024 3:45 PM EST Office Visit [facility] MEDICINE [address] [place] [address] Lissy Gracia MD [address] [place] [address] documented as of this encounter Visit Diagnoses Diagnosis Chronic bilateral low back pain, unspecified whether sciatica present documented in this encounter Additional Health Concerns Assessment Noted Time PHQ-9 Depression Total Score: 0 06/09/20 23 3:37 PM EDT documented as of this encounter Care Teams Family Preservation Officer Relationship Specialty Start Date End Date Lissy Gracia MD [address] [place] [address] PCP - General Family Medicine 06/07/21 Reinaldo Persaud RN [address] [place] [address] Boiler House MechanicCuring Oven Attendant 11/05/24 documented as of this encounter
--- OUTSIDE RECORDS SUMMARY | 2024-11-19 15:35 | XMS_ITS | Encounter Summary ---
Author Organization [employer] Address [address] 7[address] [place] [address] Care Team Providers Care Motorized Squad Captain Name Role Phone Lissy Gracia MD Primary Care Provider [phone] Reinaldo Persaud RN Unavailable [phone] Reason for Visit * Reason Comments Care Coordination [facility] Ammy bruce telephone call outreach Encounter Details Date Type Department Care Team (Latest Contact Info) Description 11/18/2024 Patient Outreach [facility] MEDICINE [address] [place] [address] Lissy Gracia MD [address] [place] [address] [facility] Coordination [facility] Ziegler telephone call outreach) Social History [...] encounter Progress Notes * Ammy Ziegler - 11/18/2024 9:26 AM EST CHW Ammy Ziegler placed outbound call to patient introducing herself from [facility] CM Department, in regard to remind patient of appt for 11/19/24 @ 8:00AM at the dental Patient's name and was confirmed. Patient is aware and confirmed will be available and has no barriers on attendingthis appointment. Patient verbalized understanding and agrees with plan. documented in this encounter Plan of Treatment Upcoming Encounters Date Type Department Care Team (Late st Contact Info) Description 11/28/2024 9:00 AM EST Office Visit [facility] ADULT DENTAL [address] [place] [address] Wendi Pedroza 2024 9:00 AM EST Office Visit [facility] ADULT DENTAL [address] [place] [address] Wendi Pedroza 12/16/2024 3:45 PM EST Office Visit [facility] MEDICINE [address] [place] [address] Lissy Gracia MD [address] [place] [address] documented as of this encounter Visit Diagnoses Not on filedocumented in this encounter Additional Health Concerns Assessment Noted Time PHQ-9 Depression Total Score: 0 02/05/20 24 1:47 PM EDT documented as of this encounter Care Teams Motorized Squad Captain Relationship Specialty Start Date End Date Lissy Gracia MD [address] [place] [address] PCP - General Family Medicine 06/07/21 Reinaldo Persaud RN [address] [place] [address] Unloader OperatorHand Mounter 11/05/24 documented as of this encounter
--- OUTSIDE RECORDS SUMMARY | 2024-11-19 15:35 | XMS_ITS | Encounter Summary ---
Author Organization [facility] Address [address] [place] [address] Care Team Providers Care Cytology Manager Name Role Phone Lissy Gracia MD Primary Care Provider [phone] Reinaldo Persaud RN Unavailable [phone] Reason for Visit * Reason Comments Extraction Encounter Details Date Type Department Care Team ([facility] st Contact Info) Description 11/19/2024 8:00 AM EST Office Visit [facility] [address] [place] [address] Ciro Rockwell DDS [address] [place] [address] Retained dental root (Primary Dx) Social History Tobacco Use Types [...] Pressure 138/88 11/19/2024 7:59 AM EST Pulse - - Temperature - - Respiratory Rate - - Oxygen Saturation - - Inhaled Oxygen Concentration - - Weight - - Height - - Body Mass Index - - documented in this encounter Progress Notes * Ciro Rockwell DDS - 11/19/2024 8:00 AM EST Patient ID: Irene Flower is a 48 y.o. female. Time Out: No data recorded Location: [facility] Tooth: Maxilla and #16 Procedure: Extraction Verified the above with patient, residential assistant, and provider. Confirmed via patient's chart, intraorally and by radiographs. Embroidery Designer: not applicable Chief Complaint Patient presents with Extraction Medical Hx: Vitals: Blood pressure 138/88. 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 ([facility]) 06/09/2023 Gastroesophageal reflux disease 06/17/2022 Hyperlipidemia 02/15/2013 Hypertensive disorder 12/02/2020 Iron deficiency 02/15/2013 Migraine Recurrent depression ([facility]) 08/10/2012 Type 2 diabetes mellitus ([facility]) 08/21/2015 Medications: Outpatient Encounter Medications as of 11/19/2024 Medication Sig Dispense Refill acetaminophen (Tylenol) 325 MG tablet Take 2 tablets (650 mg) by mouth every 4 (four) hours if needed for moderate pain, headaches or fever. 40 tablet 0 albuterol (2.5 MG/3ML) 0.083% nebulizer solution INHALE 1 AMPULE USING A NEBULIZER EVERY 4 HOURS ASNEEDED FOR WHEEZING 90 mL 3 albuterol (Ventolin HFA) 108 (90 Base) MCG/ACT inhaler INHALE 2 PUFFS BY MOUTH EVERY 4 HOURS NEEDED 18 g 6 Alcohol Swabs (SM Alcohol Prep) 70 % pads Apply 1 each topically 2 times daily. 100 each 11 ARIPiprazole (Abilify) 2 MG tablet Take 1 tablet by oral route every day at noon 90 tablet 3 atorvastatin (Lipitor) 40 MG tablet TAKE 1 TABLET BY MOUTH EVERY EVENING 90 tablet 3 Blood Glucose Monitoring Suppl (FindProze) w/Device kit 1 kit 2 times daily. To monitor blood glucose. 1 kit 0 Blood Pressure kit 1 each 2 times daily. 1 kit 0 Breo Ellipta 200-25 MCG/ACT aerosol powder INHALE 1 PUFF BY MOUTH EVERY DAY AT THE SAME TIME RINSE MOUTH AFTER USING busPIRone (Buspar) 15 MG tablet TAKE 1 TABLET BY MOUTH TWICE DAILY IN THE MORNING AND IN THE EVENING FOR ANXIETY / PANICO 180 tablet 3 cyclobenzaprine (Flexeril) 10 MG tablet One tab po at bedtime prn pain of muscles, do not drive with medicaion 20 tablet 0 Diclofenac Sodium 1 % gel Apply 1 Application topically if needed in the morning and at bedtime (pain in feet). 100 g 6 diphenhydrAMINE (BENADryl) 25 MG capsule TAKE 2 CAPSULES BY MOUTH EVERY 6 HOURS NEEDED FOR NAUSEA AND VOMITING AND HEADACHE docusate sodium (Colace) 100 MG capsule Take 100 mg by mouth at bedtime. Dulaglutide 1.5 MG/0.5ML solution auto-injector Inject 0.5 mL (1.5 mg) as directed 1 (one) time perweek. 2 mL 11 famotidine (Pepcid) 40 MG tablet Take 40 mg by mouth at bedtime. FeroSul 325 (65 Fe) MG tablet TAKE 1 TABLET BY MOUTH EVERY OTHER DAY IN THE MORNING WITH FOOD OR ORANGE JUICE 45 tablet 6 fluticasone (Flonase) 50 MCG/ACT nasal spray INHALE 1 TO 2 SPRAYS IN EACH NOSTRIL ONCE DAILY NEEDED 48 g 3 FREESTYLE LITE test strip 1 each by Other route 2 times daily. Use as instructed 100 each 11 gabapentin (Neurontin) 300 MG capsule TAKE 1 CAPSULE BY MOUTH TWICE DAILY IN THE MORNING AND IN THEEVENING and TAKE 2 CAPSULES BY MOUTH EVERY DAY AT BEDTIME 120 capsule 11 glipiZIDE XL (Glucotrol XL) 10 MG 24 hr tablet Take 1 tablet (10 mg) by mouth in the morning. 90 tablet 3 hydroCHLOROthiazide (HYDRODiuril) 25 MG tablet Take 1 tablet (25 mg) by mouth Once per day. 30 tablet 11 ibuprofen 400 MG tablet Take 1 tablet (400 mg) by mouth every 8 (eight) hours if needed for moderate pain or fever for up to 30 doses. 15 tablet 0 Invokana 300 MG TAKE 1 TABLET BY MOUTH EVERY MORNING BEFORE BREAKFAST 90 tablet 3 lidocaine (Lidoderm) 5 % patch APPLY 1 TO 2 PATCHES TOPICALLY TO SKIN, LEAVE ON FOR 12 HOURS AND OFF FOR 12 HOURS DIRECTED 60 patch 6 lisinopril 10 MG tablet Take 1 tablet (10 mg) by mouth Once per day. 30 tablet 11 LORazepam (Ativan) 0.5 MG tablet Take 1 tablet by mouth 2 times daily. Magnesium 400 MG capsule Take 1 capsule by mouth at bedtime. 90 capsule 3 magnesium oxide (Mag-Ox) 400 MG tablet Take 1 tablet by mouth at bedtime. metFORMIN (Glucophage) 500 MG tablet TAKE 2 TABLETS BY MOUTH TWICE DAILY IN THE MORNING AND EVENINGWITH MEALS 360 tablet 3 Miconazole 7 2 % vaginal cream INSERT 1 APPLICATORFUL VAGINALLY AT BEDTIME FOR 7 DAYS Mometasone Furoate (Asmanex HFA) 100 MCG/ACT aerosol Inhale 1 puff 2 times daily. Inhale 1 puff in the morning and at bedtime. Rinse mouth with water after use to reduce aftertaste and incidence of candidiasis. Do not swallow. 13 g 11 nystatin (Mycostatin) 677321 UNIT/ML suspension Take 4 mL (400,000 Units) by mouth 4 times daily for 14 days. 224 mL 0 ondansetron ODT (Zofran-ODT) 4 MG disintegrating tablet DISSOLVE 1 TABLET ENCIMA DE LA LENGUA EVERY8 HOURS DIRECTED 20 tablet 3 Pain Reliever Plus 250-250-65 MG tablet TAKE 2 TABLETS BY MOUTH EVERY 6 HOURS NEEDED FOR HEADACHE [] predniSONE (Deltasone) 20 MG tablet Take 3 tablets (60 mg) by mouth Once per day for 5 days. 15 tablet 0 sertraline (Zoloft) 100 MG tablet TAKE 1 AND 1/2 TABLETS BY MOUTH IN THE MORNING Spacer/Aero-Holding Chambers (Pro Comfort Spacer Adult) misc For use with inhaler. 1 each 0 TRUEplus Lancets 33G misc Apply 1 each topically 2 times daily. 100 each 11 No facility-administered encounter medications on file as of 11/19/2024. Consent Obtained: The risks, benefits, indications, potential complications, and alternatives were explained to the patient and informed consent was obtained with good understanding. Treatment Provided: Dental procedures in this visit D7210 - EXTRACTION, ERUPTED TOOTH REQUIRING REMOVAL OF BONE AND/OR SECTIONING OF TOOTH, AND INCLUDING ELEVATION OF MUCOPERIOSTEAL FLAP IF INDICATED 16 (Completed) Service provider: Ciro Rockwell DDS Billing provider: Ciro Rockwell DDS [id number] - ADJUNCTIVE GENERAL SERVICES - PROFESSIONAL VISITS - CASE PRESENTATION, SUBSEQUENT TO DETAILED AND EXTENSIVE TREATMENT PLANNING (Completed) Service provider: Ciro Rockwell DDS Billing provider: Ciro Rockwell DDS Diagnosis: Retained root Topical: 20% Benzocaine Anesthesia: 2% Lidocaine (Xylocaine) w/ 1:100,000 epinephrine Number of Cartridges: 1 Injection Type: Buccal infiltration and Intrapapillary injection Confirmed profound anesthesia. Pharyngeal curtain and bite block placed. Removed tooth with elevators and forceps. Apices intact. Surgical Extraction: Yes, #16 Socket curetted & irrigated with sterile water. Compressed alveolar bone. Sutures: None Needed All adjacent teeth intact. Hemostasis achieved. Complications: None. Pt tolerated procedure well . Pt. Stated having analgesics at home. Written and verbal post-op instructions given. Patient discharged in stable condition; ambulatory, alert, and oriented. NV: F/U as needed 6 mo recall Loop Puller: Krista Gonzales Dentist: Ciro Rockwell DDS documented in this encounter Plan of Treatment Upcoming Encounters Date Type Department Care Team (Late st Contact Info) Description 11/28/2024 9:00 AM EST Office Visit [facility] [address] [place] [address] Wendi Pedroza 2024 9:00 AM EST Office Visit [facility] [address] [place] [address] Wendi Pedroza 12/16/2024 3:45 PM EST Office Visit [facility] [address] [place] [address] Lissy Gracia MD [address] [place] [id number] Scheduled Orders Name Type Priority Associated Diagnoses Orde r Schedule 16 16 EXTRACTION, ERUPTED TOOTH REQUIRING REMOVAL OF BONE AND/OR SECTIONING OF TOOTH, AND INCLUDING ELEVATION OF MUCOPERIOSTEAL FLAP IF INDICATED Dental Routine [address] arting 11/19/2024 documented as of this encounter Procedures Procedure Name Priority Date/Time Associated Diagnosis Comments 16 EXTRACTION, ERUPTED TOOTH REQUIRING REMOVAL OF BONE AND/OR SECTIONING OF TOOTH, AND INCLUDING ELEVATION OF MUCOPERIOSTEAL FLAP IF INDICATED Routine 11/19/2024 8:00 AM EST ADJUNCTIVE GENERAL SERVICES - PROFESSIONAL VISITS - CASE PRESENTATION, SUBSEQUENT TO DETAILED AND EXTENSIVE TREATMENT PLANNING Routine 11/19/2024 8:00 AM EST documented in this encounter Visit Diagnoses Diagnosis Retained dental root- Primary documented in this encounter Additional Health Concerns Assessment Noted Time PHQ-9 Depression Total Score: 0 02/05/20 24 1:47 PM EDT documented as of this encounter Care Teams Cytology Manager Relationship Specialty Start Date End Date Lissy Gracia MD [address] [place] [phone] PCP - General Family Medicine 06/07/21 Reinaldo Persaud RN [address] [place] [id number] Machine Heel Seat FitterLock Tender Chief Operator 11/05/24 documented as of this encounter
--- OUTSIDE RECORDS SUMMARY | 2024-11-19 15:35 | XMS_ITS | Encounter Summary ---
Author Organization [employer] Address [address] [place] [address] Care Team Providers Care Political Science Faculty Member Name Role Phone Lissy Gracia MD Primary Care Provider [phone] Reason for Visit * Reason Comments Diabetic Eye Exam Encounter Details Date Type Department Care Team ([facility] st Contact Info) Description 10/22/2024 2:30 PM EST Office Visit [facility] [address] [place] [address] Marshall, Betty, OD [address] [place] [address] Diabetes type 2, no ocular involvement (CMS/HCC) (Primary Dx); Bilateral retinal lattice degeneration; Combined 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-related cataract of both eyes; Presbyopia Social History Tobacco Use Types Packs/Day Years [...] as of this encounter Progress Notes * Betty Olivares, OD - 10/22/2024 2:30 PM EST Eye Care Progress Note Patient ID: Irene Flower is a 48 y.o. female. Chief Complaint Diabetic Eye Exam HPI Here for a diabetic eye exam. She has Type II NIDDM. Her last HbA1c was 8.4 % on 08/21/2024. She is also monitored for lattice degeneration in both eyes. She denies any flashes/floaters/loss of vision since her last visit. The patient reports that her vision is generally good, but can fluctuate with her blood sugar level. She denies any other ocular concerns. Her last eye exam was here on 06/15/2022. Last edited by Betty Olivares, OD on 11/08/2024 12:26 PM. Current Outpatient Medications Medication Sig Dispense Refill Breo Ellipta 200-25 MCG/ACT aerosol powder INHALE 1 PUFF BY MOUTH EVERY DAY AT THE SAME TIME RINSE MOUTH AFTER USING diphenhydrAMINE (BENADryl) 25 MG capsule TAKE 2 CAPSULES BY MOUTH EVERY 6 HOURS NEEDED FOR NAUSEA AND VOMITING AND HEADACHE ketorolac (Toradol) 10 MG tablet TAKE 1 TABLET BY MOUTH EVERY 8 HOURS. DO no TAKE WITH Naprosyn, ibuprofen OR NSAIDs, ONLY Tylenol IF necesario LORazepam (Ativan) 0.5 MG tablet Take 1 tablet by mouth 2 times daily. magnesium oxide (Mag-Ox) 400 MG tablet Take 1 tablet by mouth at bedtime. metoclopramide (Reglan) 10 MG tablet take 1 tablet by mouth every 6 hours as needed for nausea and vomiting Pain Reliever Plus 250-250-65 MG tablet TAKE 2 TABLETS BY MOUTH EVERY 6 HOURS NEEDED FOR HEADACHE acetaminophen (Tylenol) 325 MG tablet Take 2 [...] topically 2 times daily. 100 each 11 amitriptyline (Elavil) 50 MG tablet TAKE 1 TABLET BY MOUTH AT BEDTIME 90 tablet 3 ARIPiprazole (Abilify) 2 MG tablet Take 1 tablet by oral route every day at noon 90 tablet 3 atorvastatin (Lipitor) 40 MG tablet TAKE 1 TABLET BY MOUTH EVERY EVENING 90 tablet 3 Blood Glucose Monitoring Suppl (FreeStyle Lite) w/Device kit 1 kit 2 times daily. To monitor blood glucose. 1 kit 0 Blood Pressure kit 1 each 2 times daily. 1 kit 0 busPIRone (Buspar) 15 MG tablet TAKE 1 TABLET BY MOUTH TWICE DAILY IN THE MORNING AND IN THE EVENING FOR ANXIETY / PANICO 180 tablet 3 cetirizine (ZyrTEC) 10 MG tablet TAKE 1 TABLET BY MOUTH EVERY MORNING NEEDED 90 tablet 3 cyclobenzaprine (Flexeril) 10 MG tablet One tab po at bedtime prn pain of muscles, do not drive with medicaion 20 tablet 0 Diclofenac Sodium 1 % gel Apply 1 Application topically if needed in the morning and at bedtime (pain in feet). 100 g 6 docusate sodium (Colace) 100 MG capsule Take [...] mouth Once per day. 30 tablet 11 Magnesium 400 MG capsule Take 1 capsule by mouth at bedtime. 90 capsule 3 metFORMIN (Glucophage) 500 MG tablet TAKE 2 TABLETS BY MOUTH TWICE DAILY IN THE MORNING AND EVENINGWITH MEALS 360 tablet 3 Mometasone Furoate (Asmanex HFA) 100 MCG/ACT aerosol Inhale 1 puff 2 times daily. Inhale 1 puff in the morning and at bedtime. Rinse mouth with water after use to reduce aftertaste and incidence of candidiasis. Do not swallow. 13 g 11 ondansetron ODT (Zofran-ODT) 4 MG disintegrating tablet DISSOLVE 1 TABLET ENCIMA DE LA LENGUA EVERY8 HOURS DIRECTED 20 tablet 3 predniSONE (Deltasone) 20 MG tablet Take 3 [...] 2 times daily. 100 each 11 No current facility-administered medications for this visit. 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 ([facility]) 06/09/2023 Gastroesophageal reflux disease 06/17/2022 Hyperlipidemia 02/15/2013 Hypertensive disorder 12/02/2020 Iron deficiency 02/15/2013 Migraine Recurrent depression ([facility]) 08/10/2012 Type 2 diabetes mellitus ([facility]) 08/21/2015 History reviewed. No pertinent surgical history. No family history on file. 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 : Yes, it has kept me from medical appointments or getting medications. Intimate Partner Violence: Not on file Housing Stability: Low Risk (08/10/2023) Housing Stability What is your housing situation today?: I have housing Think about the place you live. Do you have problems with any of the following? : None of the above No Known Allergies ROS Positive for: Eyes Negative for: Constitutional, Gastrointestinal, Neurological, Skin, Genitourinary, Musculoskeletal,HENT, Endocrine, Cardiovascular, Respiratory, Psychiatric, Allergic/Imm, Heme/Lymph Last edited by Betty Olivares, OD on 11/08/2024 12:22 PM. Base Eye Exam Visual Acuity (Snellen - Linear) Right Left Dist cc 20/25 20/30-2 Dist ph cc NI 20/25-2 Tonometry ([facility] , 2:56 PM) Right Left Pressure 19 19 Pupils Pupils APD Right PERRL None Left PERRL None Visual Begum (Counting fingers) Left Right Full Full Extraocular Movement Right Left Full Full Neuro/Psych Oriented x3: Yes Mood/Affect: Normal Dilation Both eyes: 1% Tropicamide @ 2:56 PM Slit Lamp and Fundus Exam External Exam Right Left External Normal Normal Slit Lamp Exam Right Left Lids/Lashes Dermatochalasis Dermatochalasis Conjunctiva/Sclera White and quiet White and quiet Cornea Clear Clear Anterior Chamber Deep and quiet Deep and quiet Iris Flat, no NVI Flat, no NVI Lens 1+ NS, tr ACC, vacuoles 1+ NS, tr ACC Fundus Exam Right Left Vitreous Clear Clear Disc [place] and Distinct, no NVD, tilted [place] and Distinct, no NVD C/D Ratio Vertical 0.30 0.25 C/D Ratio Horizontal 0.30 0.25 Macula Flat and Intact, no CSME Flat and Intact, no CSME Vessels Normal Normal Periphery Lattice degeneration at 12:00, 5:00, and 7:00 in the periphery, No detachments 360 degrees, no NVE Lattice degeneration at 12:00 in the periphery, No detachments 360 degrees, no NVE Refraction Wearing Rx Sphere Cylinder [place] Add Right +0.75 Sphere +1.25 Left +0.50 -0.75 175 +1.25 Manifest Refraction (Subjective) Sphere Cylinder [place] Dist [place] Add Right +0.50 -0.50 020 20/25 +2.00 Left +0.50 Sphere 20/25 +2.00 Near VA Both: 20/20 Final Rx Sphere Cylinder [place] Dist VA Add Right +0.50 -0.50 020 20/25 +2.00 Left +0.50 Sphere 20/25 +2.00 Expiration Date: 10/22/2026 Assessment/plan: Diagnoses and all orders for this visit: Diabetes type 2, no ocular involvement ([facility]) There is no diabetic retinopathy or macular edema present today in either eye. The patient was educated on the exam findings. The patient was educated to continue controlling blood glucose levels through diet, exercise and medication. The patient was educated on potential complications of diabetic retinopathy, including blindness, if left untreated. The patient was educated on the importance of an annual diabetic eye exam to monitor for diabetic retinopathy. A summary of today's dilated eye exam results will be communicated to the patient's PCP through the shared patient problem list in [facility].Will monitor in 1 year. 2. Bilateral retinal lattice degeneration Stable to previous exam findings. Lattice degeneration is a thinning of the peripheral retina. Thiscondition does not interfere with central vision or cause any symptoms. Complications of having thin areas in the retina include an increased risk of developing tears in the retina which could lead to a retinal detachment. The patient was educated to [facility] PIA if they experience a sudden onset of flashes, floaters, or decreased vision as these are the symptoms of a possible retinal complication. Otherwise, will monitor in 1 year. 3. Combined 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-related cataract of both eyes Not visually significant. No treatment necessary. Patient educated on progressive nature of cataracts. Will monitor at their next exam. 4. Presbyopia Glasses prescription updated and given. Will monitor at the patient's next full eye exam. Betty Olivares, OD 11/08/2024, 12:30 PM Student Name: Kandy Ferramirez I attest that I was physically present with the optometry student. I personally saw and evaluated the patient and performed my own history and examination. I have reviewed, verified, and revised the documented findings as necessary and agree with the content and plan as written. Joinery Setter Out Source: ___ None _x__ Bilingual Staff ___ Qualified Staff Electrotype Finisher ___ Telephone Joinery Setter Out; ID# ___ Joinery Setter Out brought by patient (family member, friend, PRINTING FILM STRIPPER, etc) ___ In person interpreter translator ___ Ipad Joinery Setter Out; ID#: Language Spoken During Exam: __Spanish documented in this encounter Plan of Treatment Upcoming Encounters Date Type Department Care Team (Late st Contact Info) Description 11/28/2024 9:00 AM EST Office Visit [facility]ULT D[facility] [address] [place] [address] Pedroza, Wendi 2024 9:00 AM EST Office Visit [facility] [address] [place] [address] Pedroza, Wendi 12/16/2024 3:45 PM EST Office Visit [facility] MED[facility] [address] [place] [address] Lissy Gracia MD [address] [place] [phone] documented as of this encounter Visit Diagnoses Diagnosis Diabetes type 2, no ocular involvement ([facility])- Primary 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
--- OUTSIDE RECORDS SUMMARY | 2024-11-19 15:35 | XMS_ITS | Encounter Summary ---
Author Organization [employer] Address [address] [place] [address] Care Team Providers Care Track Inspecting Supervisor Name Role Phone Lissy Gracia MD Primary Care Provider [phone] Reinaldo Persaud RN Unavailable [phone] Reason for Visit * Reason Comments Acupuncture Encounter Details Date Type Department Care Team ([facility] st Contact Info) Description 11/18/2024 9:00 AM EST Office Visit [facility] [address] [place] [address] Irene Singletary MD [address] [place] [address] Chronic migraine without aura without status migrainosus, [...] Progress Notes * Irene Singletary MD - 11/18/2024 9:00 AM EST Subjective Patient ID: Irene [...] 11/28/2024 9:00 AM EST Office Visit [facility]ULT D[facility] [address] [place] [address] Wendi Pedroza 2024 9:00 AM EST Office Visit [facility] [address] [place] [address] Pedroza, Wendi 12/16/2024 3:45 PM EST Office Visit [facility] [address] [place] [phone] Lissy Gracia MD [address] [place] [phone] documented as of this encounter Visit Diagnoses Diagnosis Chronic migraine without aura without status migrainosus, not intractable- Primary Anxiety Anxiety state, unspecified documented in this encounter Additional Health Concerns Assessment Noted Time PHQ-9 Depression Total Score: 0 02/05/20 24 1:47 PM EDT documented as of this encounter Care Teams Track Inspecting Supervisor Relationship Specialty Start Date End Date Lissy Gracia MD [address] [place] [address] PCP - General Family Medicine 06/07/21 Reinaldo Persaud RN [address] [place] [phone] School Crossing Guard SupervisorBiological Sciences Instructor 11/05/24 documented as of this encounter
--- OUTSIDE RECORDS SUMMARY | 2024-11-19 15:35 | XMS_ITS | Encounter Summary ---
Author Organization [employer] Address [facility] [address] [place] [address] Care Team Providers Care Pharmacovigilance Safety Expert Name Role Phone Lissy Gracia MD Primary Care Provider [phone] Reason for Visit * Reason Onset Date Comments Results 10/29/2024 Encounter Details Date Type Department Care Team ([facility] Contact Info) Description 10/29/2024 Telephone [facility] MEDICINE [address] [place], [place] [phone] Anitha Reed RN [address] [place] [address] Results Social History Tobacco Use Types Packs/Day Years [...] encounter Miscellaneous Notes * Telephone Encounter - Anitha Reed RN - 10/29/2024 3:12 PM EST TC placed to patient [phone] to inform of below message. Patient verbalized understanding and did not have any further questions. Patient to f/u PRN. ----- Message from Lissy Gracia MD sent at 10/29/2024 2:39 PM EST ----- Please let patient know I will review all labs with her at next chronic pain or acupuncture session. Nothing urgent, but there might b e some insight into her bleeding. documented in this encounter Plan of Treatment Upcoming Encounters Date Type Department Care Team (Late st Contact Info) Description 11/28/2024 9:00 AM EST Office Visit [facility] ADULT DENTAL [address] [place] [address] Wendi Pedroza 2024 9:00 AM EST Office Visit [facility] ADULT DENTAL [address] [place] [address] Wendi Pedroza 12/16/2024 3:45 PM EST Office Visit [facility] MEDICINE [address] [place] [address] Lissy Gracia MD [address] [place] [address] documented as of this encounter Visit Diagnoses Not on filedocumented in this encounter Additional Health Concerns Assessment Noted Time PHQ-9 Depression Total Score: 0 02/05/20 24 1:47 PM EDT documented as of this encounter Care Teams Pharmacovigilance Safety Expert Relationship Specialty Start Date End Date Lissy Gracia MD [address] [place] [address] PCP - General Family Medicine 06/07/21 documented as of this encounter
--- OUTSIDE RECORDS SUMMARY | 2024-11-19 15:35 | XMS_ITS | Encounter Summary ---
Author Organization [employer] Address 75 [facility] [address] [place] [address] Care Team Providers Care Landscape Maintenance Internship Name Role Phone Lissy Gracia MD Primary Care Provider [phone] Reason for Visit * Reason Onset Date Comments Care Management 10/30/2024 [facility]- chart revi ew Encounter Details Date Type Department Care Team ([facility] st Contact Info) Description 10/30/2024 Telephone [facility] MEDICINE [address] [place] [address] Reinaldo Persaud RN [address] [place] [address] Care Management ([facility]- chart review) Social History Tobacco Use Types Packs/Day Years [...] the past 12 months, has t he scPharmaceuticals, gas, oil or water [employer] threatened to shut off services in your [...] encounter Miscellaneous Notes * Telephone Encounter - Reinadlo Persaud RN - 10/30/2024 9:14 AM EST CODY Persaud RN, performed chart review, in anticipation of initial assessment with patient, as patient has stratified for [facility] Adult [facility] through the ADT feed. History significant for cervical radiculopathy, orthopnea, dyspnea on exertion, snoring, mild persistent asthma without complication, chronic cough, HTN, DM Type 2, GERD, edema of foot, plantar fasciitis, fibromyalgia, iron deficiency, chronic migraine without aura, hyperlipidemia, recurrent depression, and upper back pain. Specialists include [facility] Dental, PT, General Surgery, Pulmonary Disease, Cardiology, GI, and Vascular Surgery. ED visits within the last 12 months include [facility] 10/29/24, [facility] 10/23/24, [facility] 09/16/24, and [facility] 09/06/24. Last appointment in PCP office on 10/29/24. Next appointment scheduled for 11/19/24 with [facility] dental. documented in this encounter Plan of Treatment Upcoming Encounters Date Type Department Care Team (Late st Contact Info) Description 11/28/2024 9:00 AM EST Office Visit [facility] ADULT DENTAL [address] [place] [address] Wendi Pedroza 2024 9:00 AM EST Office Visit [facility] ADULT DENTAL [address] [place] [address] Pedroza Wendi 12/16/2024 3:45 PM EST Office Visit [facility] MEDICINE [address] [place] [address] Lissy Gracia MD [address] [place] [address] documented as of this encounter Visit Diagnoses Not on filedocumented in this encounter Additional Health Concerns Assessment Noted Time PHQ-9 Depression Total Score: 0 02/05/20 24 1:47 PM EDT documented as of this encounter Care Teams Landscape Maintenance Internship Relationship Specialty Start Date End Date Lissy Gracia MD [address] [place] [phone] PCP - General Family Medicine 06/07/21 documented as of this encounter
--- NOTE | 2024-11-19 15:37 | PFT_ITS ---
Flows: FEV1: 91 % of predicted at 2.65 L FVC: 79 % of predicted at 2.91 L FEV1/FVC: 91 % Bronchodilator response: Absent Volumes: Total lung capacity: 79 % of predicted at 4.39 L Residual volume: 91 % of predicted at 1.48 L Slow vital capacity: 74 % of predicted at 2.91 L Expiratory reserve volume: 0 % of predicted at 0 L Diffusion capacity: Normal Impression: Mild restrictive ventilatory defect with no bronchodilator response. Decreased expiratory reserve volume suggests extrathoracic restriction likely secondary to abdominal obesity. MTDD
== END 2024-11-19 15:31 | disposition home or self-care (01) ==
LOC: HO.RESP 15:30
PROVIDERS: PCP General Practice; Visit Provider Nurse Practitioner Family
DX: J45.909 Unspecified asthma, uncomplicated (principal)
CPT/HCPCS: 94010; 94640; 94727; 94729

== ENCOUNTER 2024-11-25 09:36 | Outpatient (REF) | payer MEDICAID, SELFPAY ==
--- OUTSIDE RECORDS SUMMARY | 2024-11-25 10:21 | XMS_ITS | Encounter Summary ---
Author Organization [employer] Address [address] [facility] [place] [address] Care Team Providers Care Spray Painter Helper Name Role Phone Lissy Gracia MD Primary Care Provider [phone] Reinaldo Persaud RN Unavailable [phone] Reason for Visit * Reason Comments Med Refill Encounter Details Date Type Department Care Team ([facility] st Contact Info) Description 11/05/2024 Refill [facility] MEDICINE [address] [place], [place] [phone] Lissy Gracia MD [address] [place] [address] Bronchitis Social History Tobacco Use Types Packs/Day [...] Description 11/28/2024 9:00 AM EST Office Visit [facility] ADULT DENTAL [address] [place] [address] Wendi Pedroza 2024 9:00 AM EST Office Visit [facility] ADULT DENTAL [address] [place] [address] Wendi Pedroza 12/16/2024 3:45 PM EST Office Visit [facility] MEDICINE [address] [place] [address] Lissy Gracia MD [address] [place] [address] documented as of this encounter Visit Diagnoses Diagnosis Bronchitis Bronchitis, not specified as acute or chronic documented in this encounter Additional Health Concerns Assessment Noted Time PHQ-9 Depression Total Score: 0 02/05/20 24 1:47 PM EDT documented as of this encounter Care Teams Spray Painter Helper Relationship Specialty Start Date End Date Lissy Gracia MD [address] [place] [address] PCP - General Family Medicine 06/07/21 Reinaldo Persaud RN [address] [place] [phone] Director Of Analytical DevelopmentRace Relations Professor 11/05/24 documented as of this encounter
--- OUTSIDE RECORDS SUMMARY | 2024-11-25 10:21 | XMS_ITS | Encounter Summary ---
Author Organization [facility] Address [address] [facility] [address] [place] [address] Care Team Providers Care Organic Extractions Technician Name Role Phone Lissy Gracia MD Primary Care Provider [phone] Reinaldo Persaud RN Unavailable [phone] Reason for Visit * Reason Comments Med Refill Encounter Details Date Type Department Care Team (Late st Contact Info) Description 12/25/2022 Refill [facility] MEDICINE [address] [place] [address] Adriana Ramesh MD [address] [place] [address] Social History Tobacco Use Types Packs/Day Years [...] Description 11/28/2024 9:00 AM EST Office Visit [facility] ADULT DENTAL [address] [place] [address] Wendi Pedroza 2024 9:00 AM EST Office Visit [facility] ADULT DENTAL [address] [place] [address] Wendi Pedroza 12/16/2024 3:45 PM EST Office Visit [facility] MEDICINE [address] [place] [address] Lissy Gracia MD [address] [place] [address] documented as of this encounter Visit Diagnoses Not on filedocumented in this encounter Care Teams Organic Extractions Technician Relationship Specialty Start Date End Date Lissy Gracia MD [address] [place], [place] [phone] PCP - General Family Medicine 06/07/21 Reinaldo Persaud, LILIANE [address] [place] [address] Digital Account ManagerInvoice Machine Operator 11/05/24 documented as of this encounter
--- OUTSIDE RECORDS SUMMARY | 2024-11-25 10:21 | XMS_ITS | Encounter Summary ---
Author Organization [employer] Address [address] [facility] [address] [place] [address] Care Team Providers Care Pickle Sorter Name Role Phone Clement Tracy MD Primary Care Provider [phone] Reinaldo Persaud RN Unavailable [phone] Reason for Visit * Reason Comments Acupuncture Encounter Details Date Type Department Care Team ([facility] st Contact Info) Description 11/05/2024 1:15 PM EST Office Visit [facility] MEDICINE [address] [place] [address] Clement Tracy MD [address] [place], [place] [phone] Fibromyalgia (Primary Dx); Chronic migraine without aura [...] Description 11/28/2024 9:00 AM EST Office Visit [facility] ADULT DENTAL [address] [place] [address] Wendi Pedroza 2024 9:00 AM EST Office Visit [facility] ADULT DENTAL [address] [place] [address] Wendi Pedroza 12/16/2024 3:45 PM EST Office Visit [facility] MEDICINE [address] [place] [address] Clement Tracy MD [address] [place] [phone] Scheduled Orders Name Type Priority Associated Diagnoses [...] documented as of this encounter Care Teams Pickle Sorter Relationship Specialty Start Date End Date Clement Tracy MD [address] [place] [address] PCP - General Family Medicine 06/07/21 Reinaldo Persaud RN [address] [place] [address] Valve And Regulator RepairerSpecial Services Director 11/05/24 documented as of this encounter
--- OUTSIDE RECORDS SUMMARY | 2024-11-25 10:21 | XMS_ITS | Encounter Summary ---
Author Organization [employer] Address [address] [facility] [address] [place] [address] Care Team Providers Care Rosin Barrel Filler Name Role Phone Lissy Gracia MD Primary Care Provider [phone] Reinaldo Persaud RN Unavailable [phone] Reason for Visit * Reason Onset Date Comments Nurse Triage 05/22/2023 Encounter Details Date Type Department Care Team ([facility] st Contact Info) Description 05/22/2023 Telephone [facility] MEDICINE [address] [place] [address] Lissy Gracia MD [address] [place], [place] [phone] Nurse Triage Social History Tobacco Use Types [...] to report body pain . Patient speaks Divehi. Advised triage nurse will call patient back. documented in this encounter Plan of Treatment Upcoming Encounters Date Type Department Care Team (Late st Contact Info) Description 11/28/2024 9:00 AM EST Office Visit [facility] ADULT DENTAL [address] [place] [address] Kasia Wendi 2024 9:00 AM EST Office Visit [facility] ADULT DENTAL [address] [place] [address] Wendi Pedroza 12/16/2024 3:45 PM EST Office Visit [facility] MEDICINE [address] [place] [address] Lissy Gracia MD [address] [place] [address] documented as of this encounter Visit Diagnoses Not on filedocumented in this encounter Care Teams Rosin Barrel Filler Relationship Specialty Start Date End Date Lissy Gracia MD [address] [place] [address] PCP - General Family Medicine 06/07/21 Reinaldo Persaud RN [address] [place] [address] Comic Book WriterDirector Of Convention Services 11/05/24 documented as of this encounter
--- OUTSIDE RECORDS SUMMARY | 2024-11-25 10:21 | XMS_ITS | Encounter Summary ---
Author Organization [employer] Address 75 [facility] 7t [place] [address] Care Team Providers Care Animal Behaviourist Name Role Phone Lissy Gracia MD Primary Care Provider [phone] Reinaldo Persaud RN Unavailable [phone] Reason for Visit * Reason Comments Med Refill Encounter Details Date Type Department Care Team (Late st Contact Info) Description 06/13/[address] [facility] [address] [place] [address] Chari Murray FNP [address] [place] [address] Dept [place] [address] Mild persistent asthma without complication Social History [...] 11/28/2024 9:00 AM EST Office Visit [facility] ADULT DENTAL [address] [place] [address] Wendi Pedroza 2024 9:00 AM EST Office Visit [facility] ADULT DENTAL [address] [place] [address] Pedroza Wendi 12/16/2024 3:45 PM EST Office Visit [facility] MEDICINE [address] [place] [address] Lissy Gracia MD [address] [place] [address] documented as of this encounter Visit Diagnoses Diagnosis Mild persistent asthma without complication documented in this encounter Additional Health Concerns Assessment Noted Time PHQ-9 Depression Total Score: 0 06/09/20 3:37 PM EDT documented as of this encounter Care Teams Animal Behaviourist Relationship Specialty Start Date End Date Lissy Gracia MD [address] [place] [address] PCP - General Family Medicine 06/07/21 Reinaldo Persaud RN [address] [place] [id number] Superintendent Custodian JanitorNew Account Interviewer 11/05/24 documented as of this encounter
--- OUTSIDE RECORDS SUMMARY | 2024-11-25 10:21 | XMS_ITS | Clinical Summary ---
Author Organization [employer] Address [address] [place] [address] Care Team Providers Care Director Of Payroll Name Role Phone Lissy Gracia MD Primary Care Provider [phone] Reinaldo Persaud RN Unavailable [phone] Allergies No known active allergies Medications docusate sodium (Colace) 100 MG capsule Take 100 mg by mouth at bedtime. 022 Active famotidine (Pepcid) 40 MG tablet Take 40 mg by mouth at bedtime. 022 Active Blood Glucose Monitoring Suppl (iWattStyle Lite) w/Device kitIndications:Ty pe 2 diabetes mellitus with hyperglycemia, without long-term current use of insulin ([facility]) 1 kit 2 times daily. To monitor [...] 30 doses. 15 tablet 02/06/2 024 Active Spacer/Aero-Holdi ng Chambers (Pro Comfort Spacer [...] MOUTH EVERY 4 HOURS NEEDED 18 g Active hydroCHLOROthiazi de (HYDRODiuril) 25 MG tablet Take 1 tablet (25 mg) by mouth Once per day. 30 tablet 2024 Active lisinopril 10 MG tablet Take 1 tablet (10 mg) by mouth Once per day. 30 tablet 11 024 2024 Active glipiZIDE XL (Glucotrol XL) 10 MG 24 hr tabletIndications :Type 2 diabetes mellitus with hyperglycemia, without long-term current use of insulin ([facility]) Take 1 tablet (10 mg) by mouth in the morning. 90 tablet 3 Active acetaminophen (Tylenol) 325 MG tablet Take 2 tablets (650 mg) by mouth every 4 (four) hours if needed for moderate pain, headaches or fever. 40 tablet Active atorvastatin (Lipitor) 40 MG tabletIndications :Other hyperlipidemia TAKE 1 TABLET BY MOUTH EVERY EVENING 90 tablet 3 024 Active ARIPiprazole (Abilify) 2 MG tabletIndications :Recurrent depression (CMS/HCC) Take 1 tablet by oral route every day at noon 90 tablet 3 024 Active Alcohol Swabs (SM Alcohol Prep) 70 % padsIndications:T ype 2 diabetes mellitus with hyperglycemia, without long-term current use of insulin ([facility]) Apply 1 each topically 2 times daily. 100 each Active TRUEplus Lancets 33G miscIndications:T ype 2 diabetes mellitus with hyperglycemia, without long-term current use of insulin ([facility]) Apply 1 each topically 2 times daily. 100 each 11 Active Dulaglutide 1.5 MG/0.5ML solution auto-injectorIndi cations:Type 2 diabetes mellitus with hyperglycemia, without long-term current use of insulin ([facility]) Inject 0.5 mL (1.5 mg) as directed 1 (one) time per week. 2 mL 11 Active FREESTYLE LITE test stripIndications: Type 2 diabetes mellitus with hyperglycemia, without long-term current use of insulin ([facility]) 1 each by Other route 2 times daily. Use as instructed 100 each 11 Active Magnesium 400 MG capsuleIndication s:Muscle pain Take 1 capsule by mouth at bedtime. 90 capsule 3 024 Active cyclobenzaprine (Flexeril) 10 MG tabletIndications :Upper back pain One tab po at bedtime prn pain of muscles, do not drive with medicaion 20 tablet 025 Active albuterol (2.5 MG/3ML) 0.083% nebulizer solutionIndicatio ns:Bronchitis INHALE 1 AMPULE USING A NEBULIZER EVERY 4 HOURS NEEDED FOR WHEEZING 90 mL 3 01/22/2 025 Active LORazepam (Ativan) 0.5 MG tablet Take [...] BEDTIME FOR 7 DAYS Active nystatin (Mycostatin) 635236 UNIT/ML suspensionIndicat ions:Thrush, oral Take 4 mL (400,000 Units) by mouth 4 times daily for 14 days. 224 mL 025 2024 Active ondansetron ODT (Zofran-ODT) 4 MG disintegrating tablet DISSOLVE 1 TABLET encima de la lengua EVERY 8 HOURS DIRECTED 20 tablet 3 Active Blood Pressure kit 1 each 2 times daily. 1 kit 024 2024 cetirizine (ZyrTEC) 10 MG tabletIndications :Allergic rhinitis, unspecified seasonality, unspecified trigger TAKE 1 TABLET BY MOUTH EVERY MORNING NEEDED 90 tablet 3 024 2024 Discontinued(T herapy completed) amitriptyline (Elavil) 50 MG tablet TAKE 1 TABLET BY MOUTH AT BEDTIME 90 tablet 3 024 2024 Discontinued ondansetron ODT (Zofran-ODT) 4 MG disintegrating tablet DISSOLVE 1 TABLET ENCIMA DE LA LENGUA EVERY 8 HOURS DIRECTED 20 tablet 3 024 2024 Discontinued albuterol (2.5 [...] be having hypoglycemic episodes, including shaking in NE where she hit her head Assessment & [...] 300mg daily Maintenance: Eye Exam: [facility] at [facility] 04/2022, next 04/2024 Diabetic foot exam: 01/2024, [...] 300mg daily Maintenance: Eye Exam: [facility] at [facility] 04/2022, next 04/2024 Diabetic foot exam: 01/2024, [...] for f/u Maintenance: Eye Exam: [facility] at [facility] 04/2022 Diabetic foot exam: 06/2022, decreased sensation [...] for f/u Maintenance: Eye Exam: [facility] at [facility] 04/2022 Diabetic foot exam: 06/2022, decreased sensation [...] for f/u Maintenance: Eye Exam: [facility] at [facility] 04/2022 Diabetic foot exam: 06/2022, decreased sensation [...] for f/u Maintenance: Eye Exam: [facility] at [facility] 04/2022 Diabetic foot exam: 06/2022, decreased sensation [...] for f/u Maintenance: Eye Exam: [facility] at [facility] 04/2022 Diabetic foot exam: 06/2022, decreased sensation [...] Encounters Date Type Department Care Team Description 11/25/2024 Patient Outreach [facility] [address] [place] [phone] Lissy Gracia MD Care Coordination (C3 -W Ammy Ziegler telephone call outreach) 11/21/2024 Refill [facility] [address] [place] [phone] Candice Moreland DO 11/19/2024 1:15 PM EST Office Visit [address] [address] Lissy Gracia MD Fibromyalgia (Primary Dx); Chronic migraine without aura without status migrainosus, not intractable 11/19/2024 8:00 AM EST Office Visit [facility] [address] [place] [phone] Ciro Rockwell, LINHS Retained dental root (Primary Dx) 11/19/2024 Travel 11/19/2024 Refill [facility] [address] [place] [address] Lissy Gracia MD 11/19/2024 Patient Outreach [address] [address] Lissy Gracia MD Transition Of Care (Tcm) 11/18/2024 9:00 AM EST Office Visit [address] [address] Irene Singletary MD Chronic migraine without aura without status migrainosus, not intractable (Primary Dx); Anxiety 11/18/[address] [address] Lissy Gracia MD Lab Orders 11/18/2024 Patient Outreach [address] [address] Lissy Gracia MD Care Coordination (C3 -[facility] Ammy Ziegler telephone call outreach) 11/18/2024 Travel 11/15/[address] [address] Reinaldo Persaud, LILIANE Care Management (C3- f/u call) 11/14/2024 1:40 PM EST Office Visit [facility] [address] [place] [phone] Candice Moreland DO Mild persistent asthma without complication (Primary Dx) 11/12/2024 1:15 PM EST Office Visit [facility] [address] [place] [phone] Lissy Gracia MD Chronic migraine without aura without status migrainosus, not intractable (Primary Dx) 11/12/2024 Travel 11/11/2024 11:00 AM EST Office Visit [facility] [address] [place] [address] Lissy Gracia MD Fibromyalgia (Primary Dx); Thrush, oral 11/11/2024 9:15 AM EST Office Visit [address] [address] Irene Singletary MD Chronic migraine without aura without status migrainosus, not intractable (Primary Dx); Anxiety 11/08/2024 Patient Outreach [address] [address] Lissy Gracia MD Care Coordination (C3 -[facility] Ammy Ziegler telephone call outreach) 11/07/2024 1:20 PM EST Office Visit [facility] [address] [place] [phone] Candice Moreland DO Mild persistent asthma with acute exacerbation (Primary Dx) 11/07/2024 9:00 AM EST Office Visit [address] [address] Irene Singletary MD Chronic migraine without aura without status migrainosus, not intractable (Primary Dx); Anxiety 11/07/2024 Patient Outreach [address] [phone] Lissy Gracia MD 11/07/2024 Travel 11/05/2024 1:15 PM EST Office Visit [address] [address] Lissy Gracia MD Fibromyalgia (Primary Dx); Chronic migraine without aura without status migrainosus, not intractable; Tendency toward bleeding easily (CMS/[facility]) 11/05/[address] [address] Reinaldo Persaud RN Care Management (C3- initial assessment/ enrollment.) 11/05/2024 Patient Outreach [address] [address] Lissy Gracia MD Care Coordination (C3 -[facility] Ammy Ziegler telelphone call outreach) 11/05/[address] [address] Lissy Gracia MD Bronchitis 11/05/2024 Travel 10/31/2024 9:30 AM EST Office Visit [address] [address] Irene Singletary MD Chronic migraine without aura without status migrainosus, not intractable (Primary Dx); Anxiety 10/31/2024 Travel 10/30/2024 Patient Outreach [address] [address] Lissy Gracia MD Care Coordination (C3 [facility] Ammy Ziegler telephone call outreach) 10/30/[address] [address] Reinaldo Persaud RN Care Management (C3- chart review) 10/30/2024 Orders Only [facility] External Provider, [facility] 10/29/2024 8:40 AM EST Office Visit [facility] [address] [address] Rosana Cotton MD Upper back pain (Primary Dx); Chronic cough 10/29/[address] [address] Anitha Reed, RN Results 10/28/2024 11:00 AM EST Office Visit [address] [address] Lissy Gracia MD Fibromyalgia (Primary Dx); Bleeding from the ear, left; Chronic migraine without aura without status migrainosus, not intractable 10/28/2024 9:00 AM EST Office Visit [address] [address] Irene Singletary MD Chronic migraine without aura without status migrainosus, not intractable (Primary Dx); Anxiety 10/28/2024 Travel 10/24/2024 2:00 PM EST Office Visit [facility] [address] [place] [address] Rosana Cotton MD Viral gastroenteritis (Primary Dx); Cough in adult patient 10/24/2024 10:30 AM EST Office Visit [facility] [address] [place] [address] Irene Singletary MD Chronic migraine without aura without status migrainosus, not intractable (Primary Dx); Anxiety 10/24/2024 Travel 10/24/2024 Telephone [facility] [address] [place] [address] Lissy Gracia MD Nurse Triage 10/23/2024 Orders Only GENERIC EXTERNAL DATA DEPARTMENT Provider, Generic External Data 10/22/2024 2:30 PM EST Office Visit [facility] [address] [place] [address] Marshall, Betty, OD Diabetes type 2, no ocular involvement ([facility]) (Primary Dx); Bilateral retinal lattice degeneration; Combined 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-related cataract of both eyes; Presbyopia 10/22/2024 1:15 PM EST Office Visit [facility] [address] [place] [address] Lissy Gracia MD Chronic migraine without aura without status migrainosus, not intractable (Primary Dx); Type 2 diabetes mellitus without complication, without long-term current use of insulin (CMS/HCC); Cellulitis of head except face; Mild persistent asthma without complication; Diabetes due to underlying condition w oth circulatory comp (CMS/HCC) 10/22/2024 Orders Only GENERIC EXTERNAL DATA DEPARTMENT Provider, Generic External Data 10/22/2024 Travel 10/21/[address] [address] Susana Casillas [place] [facility] Appt 09/26/[address] [address] Lissy Gracia MD 09/23/2024 Orders Only GENERIC EXTERNAL DATA DEPARTMENT Provider, Generic External Data 09/19/2024 2:40 PM EST Office Visit [facility] [address] [place] [address] [place] [address] Rosana Cotton MD Acute URI (Primary Dx) 09/19/2024 Refill [facility] [address] [place] [address] Nessa, Carola, [employer] Bronchitis 09/17/2024 2:15 PM EST Office Visit [facility] [address] [place] [address] Lissy Gracia MD Chronic migraine without aura without status migrainosus, not intractable (Primary Dx); Anxiety; Lipoma of face; Muscle pain 09/17/2024 Travel 09/16/2024 9:00 AM EST Office Visit [facility] [address] [place] [address] Irene Singletary MD Chronic migraine without aura without status migrainosus, not intractable (Primary Dx); Anxiety 09/16/2024 Travel 09/11/2024 2:00 PM EST Office Visit [facility] [address] [place] [address] Kasia Wendi Dental plaque (Primary Dx); Dental calculus; Tartar deposits on teeth 09/10/2024 1:15 PM EST Office Visit [facility] [address] [place] [address] Lissy Gracia MD Chronic migraine without aura without status migrainosus, not intractable (Primary Dx); Type 2 diabetes mellitus with hyperglycemia, without long-term current use of insulin (CMS/HCC); Recurrent depression (CMS/[facility]); Oral candidiasis 09/10/2024 Telephone [facility] [address] [place] [address] Lissy Gracia MD 09/10/2024 Travel 09/09/2024 10:00 AM EST Office Visit [facility] [address] [place] [address] Irene Singletary MD Chronic migraine without aura without status migrainosus, not intractable (Primary Dx); Anxiety 09/09/2024 Refill [facility] [address], [place] [phone] Lissy Gracia MD Other hyperlipidemia 09/09/2024 Travel 09/09/2024 Patient Outreach [facility] [place] [address] Lissy Gracia MD Transition Of Care (Tcm) 09/06/2024 Telephone [facility] [place] [address] Lissy Gracia MD 09/06/2024 Orders Only GENERIC EXTERNAL DATA DEPARTMENT Provider, Generic External Data 09/05/2024 9:45 AM EST Office Visit [facility] [place] [address] Irene Singletary MD Chronic migraine without aura without status migrainosus, not intractable (Primary Dx); Anxiety 09/05/2024 Travel 09/03/2024 10:30 AM EST Office Visit [facility] [place] [address] Irene Singletary MD Chronic migraine without aura without status migrainosus, not intractable (Primary Dx); Anxiety 09/03/2024 Travel 09/02/2024 9:00 AM EST Office Visit [facility] [place] [address] Irene Singletary MD Chronic migraine without aura without status migrainosus, not intractable (Primary Dx); Anxiety 09/02/2024 Orders Only [facility] [place] [address] Lissy Gracia MD Mild persistent asthma without complication (Primary Dx) 09/02/2024 Travel 08/30/2024 1:35 PM EST Nurse Only [facility] [place] [address] Amanda Morrison LPN Encounter for immunization (Primary Dx) 08/30/2024 Telephone [facility] [place] [address] Lissy Gracia MD Referral 08/30/2024 Orders Only [facility] External Provider, [facility] 08/29/2024 9:15 AM EST Office Visit [facility] [place] [address] Irene Singletary MD Chronic migraine without aura without status migrainosus, not intractable (Primary Dx); Anxiety 08/29/2024 Refill [facility] [address] [place] [address] Lissy Gracia MD 08/29/2024 Travel 08/28/2024 11:30 AM EST Office Visit [facility] [address] [place] [address] Lissy Gracia MD Orthopnea (Primary Dx); Type 2 diabetes mellitus without complication, without long-term current use of insulin ([facility]); Dyspnea on exertion; Mild persistent asthma without complication; Cervical radiculopathy; Primary hypertension; Gastroesophageal reflux disease without esophagitis; Iron deficiency 08/28/2024 Travel 08/27/2024 Travel 08/26/2024 9:00 AM EST Office Visit [facility] [address] [place] [address] Roscoe Alfaro MD Tongue burning sensation (Primary Dx) 08/26/2024 Telephone [facility] [address] [place] [phone] Roscoe Alfaro MD from Last 3 Months Immunizations Name Administration [...] Description 11/28/2024 9:00 AM EST Office Visit [facility] [address] [place] [address] Wendi Pedroza 2024 9:00 AM EST Office Visit [facility] [address] [place] [address] Wendi Pedroza 12/16/2024 3:45 PM EST Office Visit [facility] [address] [place] [address] Lissy Gracia MD [address] [place], [place] [phone] Health Maintenance Due Date Last Done Comments [...] Screening 11/19/2025 11/19/2024 Eye Exam 10/22/2026 10/22/2024, 04/2025, 10/22/2024, Additional history exists Dental X-Ray: Full Mouth 08/20/2027 024, 10/12/2017, 11/27/2013 DTaP/Tdap/Td Vaccines (4 - Td or Tdap) 08/30/2034 08/30/2024, 06/30/2014, 11/23/2009 RSV Patients and Patients Aged 60 years or older (1 - 1-dose 75+ series) 2048 HIV Screening Completed 06/16/2020 Hepatitis C Screening Completed 06/16/2020 Hepatitis B Vaccines Completed 12/25/2023, 08/31/20 Pneumococcal Vaccine: 50+ Years Completed 08/30/2024 HIB [...] complication, without long-term current use of insulin ([facility]) HEMOGLOBIN A1C Routine 10/22/2024 3:49 PM EST Type 2 diabetes mellitus without complication, without long-term current use of insulin (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 Influenza B Negative Negative, Indeterminate [facility] Swab 11/14/2024 1:52 PM EST Candice Moreland DO POINT OF CARE TEST ENTER/GOPAL T ORDERABLES Final Result Performing Organization Address [facility]/ZIP Co de Phone Number [facility] [address] [place] [address] [phone] * Influenza A (ID NOW Rapid Molecular) (11/14/2024 1:52 PM EST) Only the most recent of4 resultswithin the time period is included. Influenza A Negative Negative, Indeterminate [facility] Swab 11/14/2024 1:52 PM EST Candice Moreland DO POINT OF CARE TEST ENTER/GOPAL T ORDERABLES Final Result Performing Organization Address [facility] Co de Phone Number [facility] [address] [place] [phone] * POCT Rapid COVID Ag (11/14/2024 1:52 PM EST) Only the most recent of4 resultswithin the time period is included. Rapid COVID Ag Negative [facility] Swab 11/14/2024 1:52 PM EST Candice Moreland DO POINT OF CARE TEST ENTER/GOPAL T ORDERABLES Final Result Performing Organization Address [facility] Co de Phone Number [facility] [address] [place] [phone] * POCT rapid strep A manually resulted (11/14/2024 1:52 PM EST) Only the most recent of2 resultswithin the time period is included. Rapid Strep A Screen Negative Negative, None Detected [facility] Swab 11/14/2024 1:52 PM EST us Candice Moreland DO POINT OF CARE TEST ENTER/GOPAL T ORDERABLES Final Result [facility] [address] [place] [phone] * XR Chest 2 Views (10/30/2024 1:42 AM EST) Anatomical Region Laterality Modality Chest Radiographic Liss ging 10/30/2024 1:42 AM EST Narrative 10/30/2024 1:44 AM EST ? [facility] ?[address] ?[place] [address] ?XRay Report ? Signed ? Patient: Irene Garcia ?MR#: ?? [id number] ? : 1975 ?Acct:[id number] ? Age/Sex: 48 / F ?ADM Date: 10/30/24 ? Loc: HO.ED ? Attending Dr: ? Ordering Physician: Generic ED Physician ?? Date of Service: 10/30/24 ?? Procedure(s): XR chest 2V ?? Accession Number(s): [id number] ? cc: Generic ED Physician; [facility] ? CLINICAL HISTORY: cough, lung pain [...] Cristian Rodrigez MD in OV> ? 10/30/24 014 ? DD/ 014 ? TD/TT: 10/30/24 014 ? Quality Improvement Consultant: ? Procedure Note Donotuseinterpreter, Image - 10/30/[address] [address] XRay Report Signed Patient: Irene GarciaMR#: [id number] : 1975Acct:[id number] Age/Sex: 48 / FADM Date: 10/30/24 Loc: HO.ED Attending Dr: Ordering Physician: Generic ED Physician Date of Service: 10/30/24 Procedure(s): XR chest 2V Accession Number(s): [id number] cc: Generic ED Physician; [facility] CLINICAL HISTORY: cough, lung pain 2 [...] in OV> 10/30/24142 DD/ 1 TD/TT: 10/30/24141 Quality Improvement Consultant: [facility] External Provider IMG XR PROCEDURES Final Result * SARS-CoV-2 RNA, Influenza A/B, and RSV RNA, Ql NAAT (10/30/2024 1:09 AM EST) Influenza A PCR NEGATIVE Negative [facility] Influenza B PCR NEGATIVE Negative [facility] Resp Syncy Virus RNA Qual PCR NEGATIVE Negative [facility] SARS COV2 PCR NEGATIVE Negative [facility] Comment:All test results mus t [...] use by authorized laboratories.Testing performed on the [employer] GeneXpert utilizingreal-time RT-PCR.All SARS CoV2 and positive influenza A/B results arereported to [facility]. 10/30/2024 1:09 AM EST 10/30/2024 1:12 AM EST us Generic External Data Provider LAB MICROBIOLOGY - GENERAL ORDERABLES Final Result [facility] [address] [place] [phone] * (ABNORMAL) CBC auto differential (10/28/2024 12:08 PM EST) Only the most recent of4 resultswithin the time period is included. White Blood Count 6.1 4.8 - 10.8 X10*3/uL [facility] Red Blood Count 4.85 4.20 - 5.50 X10*6/uL [facility] Hemoglobin 12.1 12.0 - 16.0 g/dl [facility] Hematocrit 37.4 37.0 - 47.0 % [facility] Mean Corpuscular Volume 77.1(L) 80.0 - 98.0 fL [facility] Mean Corpuscular Hemoglobin 24.9(L) 27.0 - 33.0 pg [facility] Mean Corpuscular HGB Conc 32.4 31.0 - 35.0 g/dl [facility] Red Cell Distribution Width 15.3 11.0 - 16.0 % [facility] Platelet Count 369 160 - 400 X10*3/uL [facility] Mean Platelet Volume 9.6 9.4 - 12.3 fL [facility] Neutrophils Percent Auto 56.2 45 - 73 % [facility] Imm Gran Pct Auto 0.3 0.0 - 0.4 % [facility] Lymphocytes Percent Auto 34.7 20 - 40 % [facility] Monocytes Percent Auto 7.1 2 - 11 % [facility] Eosinophils Percent Auto 1.2 0 - 4 % [facility] Basophils Percent Auto 0.5 0 - 2 % [facility] NRBC Pct Auto 0.0 0.0 - 0.2 /100WBC [facility] Neutrophils Absolute Auto 3.4 2.0 - 8.3 x10*3/uL [facility] Imm Gran Abs Auto 0.02 0.00 - 0.03 X10*3/uL [facility] Lymphocytes Absolute Auto 2.1 1.2 - 4.9 X10*3/uL [facility] Monocytes Absolute Auto 0.4 0.1 - 1.2 X10*3/uL [facility] Eosinophils Absolute Auto 0.1 0.0 - 0.4 X10*3/uL [facility] Basophils Absolute Auto 0.0 0.0 - 0.2 X10*3/uL [facility] NRBC Abs Auto 0.000 0.0 - 0.012 X10*3/uL [facility] Blood Venous blood specimen / Unknown 10/28/2024 12:08 PM EST 10/28/2024 1:08 PM EST us Lissy Gracia MD LAB BLOOD ORDERABLES Final Res ult [facility] [address] [place] [address] [phone] * (ABNORMAL) Prothrombin Time-INR (10/28/2024 12:08 PM EST) Prothrombin Time 10.8(L) 10.9 - 12.4 SEC [facility] INTERNATIONAL NORM RATIO 0.9 0.9 - 1.1 [facility] Comment:INTERNATIONAL NORMAL IZED RATIO (INR) [...] ORDERABLES Final Res ult Performing Organization Address [facility] Co de Phone Number [facility] [address] [place] [address] [phone] * High Sensitivity Troponin I (10/23/2024 10:11 PM EST) Only the most recent of4 resultswithin the time period is included. TROPONIN I HIGH SENSITIVITY <2.7 <3.5 - 17.0 ng/L [facility] Comment:The Patino high sens itivity Troponin-I results should beused in conjunction with other diagnostic information suchas ECG, clinical observations and information, and patientsymptoms to aid in the diagnosis of HI. 10/23/2024 10:1 1 PM EST 10/24/2024 1:15 AM EST us Generic External Data Provider LAB BLOOD ORDERAB LES Final Result Performing Organization Address [facility] de Phone Number [facility] [address] [place] [address] [phone] * (ABNORMAL) Hemoglobin A1c (10/22/2024 3:49 PM EST) Hemoglobin A1c 8.7(H) <6.0 % [facility] Comment:Hemoglobin A1C Refer ence Range Adults: 4.8 - 6.0 % Non diabetic: < 6.0 % Goal: < 7.0 %Additional Action Suggested: > 8.0 %Note: Hemoglobin A1c results are invalid for patients with abnormal amounts of HbF. Blood transfusions may impact the HbA1c concentration in the patient sample. Estimated Average Glucose 203 mg/dL [facility] Comment:eAG = Estimated ave rage glucose which is %A1C expressed asaverage glucose, using the formula of the S7A-WmwyoxzUcscrnl Glucose study (ADAG), Diabetes Care, Vol.31,#8,2007 Blood Venous blood specimen / Unknown 10/22/2024 3:49 PM EST 10/22/2024 5:46 PM EST us Lissy Gracia MD LAB BLOOD ORDERABLES Final Res ult Performing Organization Address [facility] Co de Phone Number [facility] [address] [place] [phone] * Immunoglobulin E (10/22/2024 3:49 PM EST) Only the most recent of2 resultswithin the time period is included. Immunoglobulin E 3 <BY=082 kU/L [facility] Comment:THIS TEST WAS PERFOR MED AT:[id number] [place] [phone] HEIN MD 10/22/2024 3:49 PM EST 10/22/2024 5:46 PM EST us Generic External Data Provider LAB BLOOD ORDERAB LES Final Result Performing Organization Address [facility] de Phone Number [facility] [address] [place] [phone] * (ABNORMAL) Comprehensive Metabolic Panel (10/22/2024 3:49 PM EST) Only the most recent of4 resultswithin the time period is included. Sodium 137 135 - 145 mmol/L [facility] Potassium 3.9 3.3 - 5.1 mmol/L [facility] Chloride 109(H) 96 - 108 mmol/L [facility] Carbon Dioxide 23 22 - 29 mmol/L [facility] Anion Gap 9(L) 12 - 20 [facility] Urea Nitrogen (BUN) 15 9 - 16 mg/dL [facility] Creatinine, Serum 0.69 0.5 - 1.4 mg/dL [facility] Estimated Glomerular Filt Rate >60 [facility] Comment:Chronic Kidney Disea se: Estimated GFR < 60 mL/min/1.64o8Xkfckd Kidney Disease: Estimated GFR < 15 mL/min/1.73m2 Glucose 182(H) 60 - 115 mg/dL [facility] Calcium 9.0 8.4 - 10.2 mg/dL [facility] Bilirubin, Total 0.2 0.0 - 1.0 mg/dL [facility] Aspartate Amino Transferase 21 5 - 31 U/L [facility] Alanine Aminotransferase 26 0 - 31 U/L [facility] Total Protein 7.2 6.5 - 8.0 g/dL [facility] Albumin Level 4.3 3.5 - 5.0 g/dL [facility] Alkaline Phosphatase 90 39 - 117 U/L [facility] Blood Venous blood specimen / Unknown 10/22/2024 3:49 PM EST 10/22/2024 5:46 PM EST us Lissy Gracia MD LAB BLOOD ORDERABLES Final Res ult [facility] [address] [place] [phone] * Respiratory Allergy Profile Region I (09/23/2024 2:26 PM EST) Mouse Urine Proteins (E72) IgE <0.10 kU/L [facility] Class 0 [facility] Cockroach (I6) IgE <0.10 kU/L [facility] Class 0 [facility] Dermatophagoides farinae (D2) IgE <0.10 kU/L [facility] Class 0 [facility] Cat Dander (E1) IgE <0.10 kU/L [facility] Class 0 [facility] Comment:THIS TEST WAS PERFOR MED AT:[id number] [place] [phone] HEIN MD Dog Dander (E5) IgE <0.10 kU/L [facility] Class 0 [facility] Comment:THIS TEST WAS PERFOR MED AT:[id number] [place] [phone] HEIN MD [place] Grass (G6) IgE <0.10 kU/L [facility] Class 0 [facility] Cladosporium herbarum (M2) IgE <0.10 kU/L [facility] Class 0 [facility] Aspergillus Fumigatis (M3) IgE <0.10 kU/L [facility] Class 0 [facility] Alternaria alternata (M6) IgE <0.10 kU/L [facility] Class 0 [facility] Comment:THIS TEST WAS PERFOR MED AT:[id number] [place] [address]YYNQKCASSIUS HEIN MD [place] (t6) IgE <0.10 kU/L [facility] Class 0 [facility] Perrin (T7) IgE <0.10 kU/L [facility] Class 0 [facility] [place] Tree (T10) IgE <0.10 kU/L [facility] Class 0 [facility] [place] (T11) IgE <0.10 kU/L [facility] Class 0 [facility] Mills (T14) IgE <0.10 kU/L [facility] Class 0 [facility] [place] (t15) IgE <0.10 kU/L [facility] Class 0 [facility] [place] (T70) IgE <0.10 kU/L [facility] Class 0 [facility] Common Ragweed (Short) (W1) IgE <0.10 kU/L [facility] Class 0 [facility] Mugwort (w6) IgE <0.10 kU/L [facility] Class 0 [facility] Dermatophagoides pteronyssinus (D1) IgE <0.10 kU/L [facility] Class 0 [facility] Bermuda Grass (g2) IgE <0.10 kU/L [facility] Class 0 [facility] Penicillium Notatum (M1) IgE <0.10 kU/L [facility] Class 0 [facility] Birch (T3) IgE <0.10 kU/L [facility] Class 0 [facility] Elm (t8) IgE <0.10 kU/L [facility] Class 0 [facility] Maple (Countyline) (T1) IgE <0.10 kU/L [facility] Class 0 [facility] Rough Pigweed (W14) IgE <0.10 kU/L [facility] Class 0 [facility] Sheep Parshall (W18) IgE <0.10 kU/L [facility] Class 0 [facility] Allergen Comment See Below [facility] Comment: Specific ?Level of AllergenIGE [...] and its analyticalperformance characteristics have been determined by[facility]. It has not been cleared or approvedby the U.S. Food and Drug Administration. This assayhas been validated pursuant to the CLIA regulationsand is used for clinical purposes.THIS TEST WAS PERFORMED AT:[address] [place] [address] ??[id number] HEIN MD 09/23/2024 2:26 PM EST 09/23/2024 2:26 PM EST us Generic External Data Provider LAB BLOOD ORDERAB LES Final Result Performing Organization Address City/State/[facility] Co de Phone Number [facility] [address] [place] [address] [phone] * XR Chest 1 View (09/06/2024 5:30 AM EST) Only the most recent of2 resultswithin the time period is included. Anatomical Region Laterality Modality Chest Radiographic Liss ging 09/06/2024 5:30 AM EST Narrative 09/06/2024 6:42 AM EST ? [facility] ?[address] ?[place] [address] ?XRay Report ? Signed ? Patient: Irene Garcia ?MR#: ?? [id number] ? : 1975 ?Acct:[id number] ? Age/Sex: 48 / F ?ADM Date: 11/22/24 ? Loc: HO.ED ? Attending Dr: ? Ordering Physician: Petty Keys MD ?? Date of Service: 09/06/24 ?? Procedure(s): XR chest 1V ?? Accession Number(s): [id number] ? cc: Petty Keys MD; Lissy Gracia [...] DD/ 0530 ? TD/TT: 09/06/24 0534 ? Quality Improvement Consultant: EF ? Procedure Note Donkalyanimateodavister, Image - 09/06/[address] [address] XRay Report Signed Patient: Irene GarciaMR#: [id number] : 1975Acct:[id number] Age/Sex: 48 / FADM Date: 09/06/24 Loc: HO.ED Attending Dr: Ordering Physician: Petty Keys MD Date of Service: 09/06/24 Procedure(s): XR chest 1V Accession Number(s): [id number] cc: Petty Keys MD; Lissy Gracia EXAMINATION: [...] signed by Enmanuel Briggs MD in OV> 09/06/2438 DD/ TD/TT: 09/06/24 0534 Quality Improvement Consultant: EF us [facility] External Provider IMG XR PROCEDURES Final Result * Strep A Nucleic Acid (09/06/2024 2:32 AM EST) IDNOW SERIAL# [id number] [facility] Strep A Nucleic Acid Negative Negative [facility] Comment:All test results mus t [...] GENERAL ORDERABLES Final Result Performing Organization Address City/[facility] Co de Phone Number [facility] [address] [place] [address] [phone] * Slide Review (09/06/2024 2:31 AM EST) Slide Review VERIFIED [facility] 09/06/2024 2:31 AM EST 09/06/2024 2:36 AM EST Generic External Data Provider LAB BLOOD ORDERAB LES Final Result Performing Organization Address [facility] Co de Phone Number [facility] [address] [place] [phone] * B Type Natriuretic Peptide (BNP) (09/06/2024 2:31 AM EST) Only the most recent of3 resultswithin the time period is included. [facility] B Type Natriuretic Peptide 16 <100 pg/mL [facility] Comment:For those patients w ho are being treated with Natrecor(nesiritide, recombinant BNP), BNP testing should beperformed at least two hours post treatment in order toensure that only endogenous levels of BNP are detected. 09/06/2024 2:31 AM EST 09/06/2024 3:39 AM EST Generic External Data Provider LAB BLOOD ORDERAB LES Final Result Performing Organization Address [facility] Co de Phone Number [facility] [address] [place] [address] [phone] * Magnesium (08/30/2024 3:57 AM EST) [facility] Magnesium 2.0 1.6 - 2.6 mg/dL [facility] 08/30/2024 3:57 AM EST 08/30/2024 4:02 AM EST Generic External Data Provider LAB BLOOD ORDERAB LES Final Result Performing Organization Address [facility] de Phone Number [facility] [address] [place] [address] [phone] * Lipase (08/30/2024 3:57 AM EST) [facility] Lipase 33 8 - 78 U/L [facility] 08/30/2024 3:57 AM EST 08/30/2024 4:02 AM EST Generic External Data Provider LAB BLOOD ORDERAB LES Final Result Performing Organization Address [facility] de Phone Number [facility] [address] [place] [address] [phone] * (ABNORMAL) POCT glucose manually resulted (08/28/2024 11:59 AM EST) Glucose Blood, POC 254(A) 60 - 200 mg/dL QC Media Lot # [id number] Lot# Expiration Date Blood Capillary blood specimen / Unknown 08/28/2024 11:59 AM EST us Lissy Gracia MD POINT OF CARE TEST ENTER/EDIT ORDERABLES Final Result * BI Mammogram Screening Tomosynthesis Bilateral (01/11/2024 2:45 PM EDT) Anatomical Region Laterality Modality Breast Bilateral Mammography 01/11/2024 2:45 PM EDT Narrative 02/06/2024 6:07 AM EDT ? [facility] ? [address] ?[place], [place] [address] ? Mammography Report ? Signed ? Patient: Irene Garcia ?MR#: ?? [id number] ? : 1975 ?Acct:[id number] ? Age/Sex: 48 / F ?ADM Date: 01/11/24 ? Loc: HO.MAMMO ? Attending Dr: Lissy Gracia MD ? Ordering Physician: iLssy Gracia ?Results: 1Negative ? Date of Service: 01/11/24 ?Follow Up: 1 Year From Orig ?? inal Mammogram ? Procedure(s): MM tomosynthesis screening BI ?? Accession Number(s): [id number] ? cc: Lissy Gracia ? EXAMINATION: ?? [...] by Joi Rivera MD in OV> ? 02/06/24 0604 ? DD/ 1445 ? TD/TT: ? Quality Improvement Consultant: ? Procedure Note Bayron, John - 02/06/2024 [facility] [address] [place] [address] [place] [address] Mammography Report Signed Patient: Irene Garcia#: [id number] : 1975Acct:[id number] Age/Sex: 48 / FADM Date: 01/11/24 Loc: [place] Attending Dr: Lissy Gracia MD Ordering Physician: Rodriguez Graciaults: 1Negative Date of Service: 01/11/24Follow Up: 1 Year From Orig inal Mammogram Procedure(s): MM tomosynthesis screening BI Accession Number(s): [id number] cc: Lissy Gracia EXAMINATION: MM SCREENING DIGITAL [...] in OV> 02/06/24 0604 DD/ 1445 TD/TT: Quality Improvement Consultant: Lissy Gracia MD IM BI PROCEDURES Final Result * Lipid Panel, Standard (12/25/2023 9:46 AM EDT) Triglycerides 44 <150 mg/dL [facility] Comment:Desirable Triglyceri de: less than 150 mg/dLBorderline High Triglyceride 150-199 mg/dLHigh Triglyceride: 200-499 mg/dLVery High Triglyceride: greater than or equal to 5OO mg/dL Cholesterol 145 <200 mg/dL [facility] Comment:Desirable Cholestero l: less than 200 mg/dLBorderline High Cholesterol: 200-239 mg/dLHigh Cholesterol: greater than 239 mg/dL LDL Cholesterol Calculated 64 <100 mg/dL [facility] Comment:Desirable LDL: less than 100 mg/dLNear Optimal/Above Optimal LDL: 110- 129 mg/dLBorderline High LDL: 130-159 mg/dLHigh LDL: 160-189 mg/dLVery High LDL: greater than or equal to 190 mg/dL HDL Cholesterol 73 >40 mg/dL [facility] Comment:Desirable HDL: great er than 40 mg/dL Note: This HDL assay may give artificially low results in patients with liver disease. Blood Venous blood specimen / Unknown 12/25/2023 9:46 AM EDT 12/25/2023 11:04 AM EDT us Lissy Gracia MD LAB BLOOD ORDERABLES Final Res ult [facility] [address] [place] [address] [phone] * Pap Smear (11/22/2023 1:51 PM EST) 11/22/2023 1:51 PM EST 11/24/2023 8:30 AM EST Narrative [facility] - 12/04/2023 10:46 AM EST ----- ------- Name: Irene Garcia ?Age/Sex: 47/F ? : 1975 Unit#: [id number] ?? Attend Dr: Clare Jackson CNM ?Re11/22/23 ?Status: DEP REF ? Location: HO.LNP ?Disch: ? ----- ------- SPEC : [id number] ? RECD: 11/24/23 ? STATUS: ??SOUT ? REQ NUM: [id number] ? CHENG: 11/22/231 ? SUBM DR: Clare Jackson CNM ? ENTERED: ??11/24/23 ?SP TYPE: Pap Smr ?OTHR DR: Lissy [...] Not Detected ? HPV testing performed by [employer], [place], [place]. ??See reference laboratory ?? portion of the EMR for entire report. ?Clinical Information LMP: 11/14/23 Previous PAP test: 09/12/22, HPV+ ? Material Received ?? ThinPrep-Cervical Copies To: ?? Lissy Gracia ?? [address] [facility] ?? [place] [address] ?? [phone] ?? Clare Jackson CNM ?? [address] [facility] ?? [place] [address] ?? [phone] ----- ------- Signed (signature on file) Candelaria [place] 12/04/23 1046 ? ----- ------- ? END OF REPORT ? us Generic External Data Provider LAB CYTOLOGY AROLDO TSAI Final Result [facility] [address] [place] [address] [phone] * Albumin, Random Urine W/Creatinine (11/06/2023 2:33 PM EST) Creatinine, Urine 59.51 mg/dL [facility] Microalbumin Urine 14.0 mg/L [facility] Microalbum Creatinine Ratio Ur 23.5 <30 ug/mg cr [facility] Comment:Albumin/Creatinine R atio Reference Ranges: Normal: < 30 ug/mg creatinine Microalbuminuria: 30 - 300 ug/mg creatinineClinical Albuminuria: > 300 ug/mg creatinine Urine (Urine, Random) 11/06/2023 2:33 PM EST 11/06/2023 4:16 PM EST us Lissy Gracia MD LAB URINE ORDERABLES Final Res ult [facility] [address] [place] [address] [phone] * (ABNORMAL) HPV mRNA E6/E7 w/Reflex to HPV Genotypes 16, 18/45 (09/12/2022 9:53 AM EST) HPV nRNA E6/E7 Detected(A ) Not Detected [facility] Comment:Methodology: Transcr iption-Mediated AmplificationThis assay detects E6/E7 viral messenger RNA (mRNA) from 14high-risk HPV types (16,18,31,33,35,39,45,51,52,56,58,59,66,68).Cervical sources are required for HPV testing.If a vaginal source from a patient who has had atotal hysterectomy with removal of cervix wassubmitted, please contact the testing laboratoryfor alternative testing options.For additional information, please refer tohttp://education.[employer]/faq/[email or web address](This link if provided for information/educational purposes only.)THIS TEST WAS PERFORMED AT:[address] [place] [address],[place] [address]WACWQCASSIUS HEIN MD HPV 16 RNA NOT DETECTED NOT DETECTED [facility] HPV 18/45 RNA NOT DETECTED NOT DETECTED [facility] Comment:Methodology: Transcr iption Mediated AmplificationCervical sources are required for HPV testing.If a vaginal source from a patient who has had atotal hysterectomy with removal of cervix wassubmitted, please contact the testing laboratoryfor alternative testing options.THIS TEST WAS PERFORMED AT:[address] [place] [address],[place] [phone] HEIN MD 09/12/2022 9:53 AM EST 09/12/2022 12:00 PM EST [facility] External Provider LAB CYT OLOGY ORDERABLES Final Result Performing Organization Address City/[facility]/ZIP Co de Phone Number [facility] [address] [place] [address] [phone] * HEPATITIS C ANTIBODY (06/16/2020 12:35 PM EDT) Pathologist [facility] HEPATITIS C ANTIBODY NON[facility]ACTIVE [facility] Comment: Antibodies to HCV not detected; does not exclude early acute HCV infection. 06/16/2020 12:3 5 PM EDT Historical Provider HISTORICAL/NON ORDERABLE LABS Final Result Performing Organization Address [facility]/ZIP Co de Phone Number [facility] [address] * HIV AB/AG (06/16/2020 12:35 PM EDT) HIV AG/AB NONREACTIVE NR [facility] ON LAB [...] detection of this assay. ?? The Patino Ecology Professor HIV Ag/Ab Combo assay result and supplemental assay results should be interpreted in conjunction with the patient's clinical presentation, history and other laboratory results. ??If the results are inconsistent with clinical evidence, additional testing is suggested to confirm the result. 06/16/2020 12:3 5 PM EDT us Historical Provider HISTORICAL/NON ORDERABLE LABS Final Result [facility] [address] from Last 3 Months or Most Recently Relevant to Health Maintenance Insurance [facility] STAND ADULT Care Teams Director Of Payroll Relationship Specialty Start Date End Date Lissy Gracia MD [address] [place] [phone] PCP - General Family Medicine 06/07/21 Reinaldo Persaud RN [address] [place] [phone] Bellows AssemblerCooker Sulfate 11/05/24
--- OUTSIDE RECORDS SUMMARY | 2024-11-25 10:21 | XMS_ITS | Encounter Summary ---
Author Organization [employer] [facility] Address [address] [place] [address] Care Team Providers Care Rodding Machine Tender Name Role Phone Lissy Gracia MD Primary Care Provider [phone] Reinaldo Persaud RN Unavailable [phone] Reason for Visit * Reason Comments Med Refill Encounter Details Date Type Department Care Team (Late st Contact Info) Description 05/12/2023 Refill [facility] [address] [place] [address] Lissy Gracia MD [address] [place] [address] Social History Tobacco Use Types Packs/Day Years [...] Description 11/28/2024 9:00 AM EST Office Visit [facility] [address] [place] [address] Wendi Pedroza 2024 9:00 AM EST Office Visit [facility] [address] [place] [address] Wendi Pedroza 12/16/2024 3:45 PM EST Office Visit [facility] [address] [place] [address] Lissy Gracia MD [address] [place] [address] documented as of this encounter Visit Diagnoses Not on filedocumented in this encounter Care Teams Rodding Machine Tender Relationship Specialty Start Date End Date Lissy Gracia MD [address] [place] [address] PCP - General Family Medicine 06/07/21 Reinaldo Persaud, RN [address] [place] [phone] Core Composer Machine TenderClean Room Technician 11/05/24 documented as of this encounter
--- OUTSIDE RECORDS SUMMARY | 2024-11-25 10:21 | XMS_ITS | Encounter Summary ---
Author Organization [facility] Address [address] [place] [address] Care Team Providers Care Travel Nurse Name Role Phone Lissy Gracia MD Primary Care Provider [phone] Reinaldo Persaud RN Unavailable [phone] Reason for Visit * Reason Comments Med Refill Encounter Details Date Type Department Care Team (Late st Contact Info) Description 12/26/2022 Refill [facility] [address] [place] [phone] Adriana Ramesh MD [address] [place] [phone] Primary hypertension Social History Tobacco Use Types [...] Office Visit [facility] [address] [place] [address] Wendi Pedroza 2024 9:00 AM EST Office Visit [facility] [address] [place] [address] Wendi Pedroza 12/16/2024 3:45 PM EST Office Visit [facility] [address] [place] [phone] Lissy Gracia MD [address] [place] [address] documented as of this encounter Visit Diagnoses Diagnosis Primary hypertension Unspecified essential hypertension documented in this encounter Care Teams Travel Nurse Relationship Specialty Start Date End Date Lissy Gracia MD [address] [place] [address] PCP - General Family Medicine 06/07/21 Reinaldo Persaud RN [address] [place] [phone] Early Childhood WorkerMachine Farmworker 11/05/24 documented as of this encounter
--- OUTSIDE RECORDS SUMMARY | 2024-11-25 10:21 | XMS_ITS | Encounter Summary ---
Author Organization [employer] Address [address] [facility] [address] 7t [place] [address] Care Team Providers Care Building Drafter Name Role Phone Lissy Gracia MD Primary Care Provider [phone] Reinaldo Persaud RN Unavailable [phone] Reason for Referral * Consultation (STAT) - Closed Specialty Diagnoses / Procedures Referred By Contac t Referred To Contact Pulmonary Disease Diagnoses Mild persistent asthma without complication Lissy Gracia MD [address] [place] [address] Phone: tel: fax: [facility] [address] 1st Floor [place], [place] Phone: tel: fax: Referral ID Status Reason Start Date Expiration Date V isits Requested Visits Authorized [id number] Closed Specialty Services Required 09/02/2024 09/02/2025 6 6 Encounter Details Date Type Department Care Team (Late st Contact Info) Description 09/02/2024 Orders Only [facility] MEDICINE [address] [place] [address] Lissy Gracia MD [address] [place] [address] [phone] Mild persistent asthma without complication (Primary Dx) [...] Description 11/28/2024 9:00 AM EST Office Visit [facility] ADULT DENTAL [address] [place] [address] Wendi Pedroza 2024 9:00 AM EST Office Visit [facility] ADULT DENTAL [address] [place] [address] Pedroza Wendi 12/16/2024 3:45 PM EST Office Visit [facility] MEDICINE [address] [place] [address] iLssy Gracia MD [address] [place] [address] Scheduled Referrals Name Type Priority Associated Diagnoses [...] documented as of this encounter Care Teams Building Drafter Relationship Specialty Start Date End Date Lissy Gracia MD [address] [place] [address] PCP - General Family Medicine 06/07/21 Reinaldo Persaud, LILIANE [address] [place] [address] Sand MolderHand Tacker 11/05/24 documented as of this encounter
--- OUTSIDE RECORDS SUMMARY | 2024-11-25 10:22 | XMS_ITS | Encounter Summary ---
Author Organization [employer] Address [address] [facility] [address] [address] 7t [place] [address] Care Team Providers Care Interactive Art Director Name Role Phone Lissy Gracia MD Primary Care Provider [phone] Reinaldo Persaud RN Unavailable [phone] Reason for Visit * Reason Comments Acupuncture Encounter Details Date Type Department Care Team ([facility] st Contact Info) Description 11/07/2024 9:00 AM EST Office Visit [facility] MEDICINE 230 [place] [address] Irene Singletary MD [address] [place] [address] Chronic migraine without aura without status migrainosus, [...] Visit [facility] ADULT DENTAL [address] [place] [address] Wendi Pedroza 2024 9:00 AM EST Office Visit [facility] ADULT DENTAL [address] [place] [address] Pedroza, Wendi 12/16/2024 3:45 PM EST Office Visit [facility] MEDICINE [address] [place] [address] Lissy Gracia MD [address] [place] [address] documented as of this encounter Visit Diagnoses Diagnosis Chronic migraine without aura without status migrainosus, not intractable- Primary Anxiety Anxiety state, unspecified documented in this encounter Additional Health Concerns Assessment Noted Time PHQ-9 Depression Total Score: 0 02/05/20 24 1:47 PM EDT documented as of this encounter Care Teams Interactive Art Director Relationship Specialty Start Date End Date Lissy Gracia MD [address] [place] [address] PCP - General Family Medicine 06/07/21 Reinaldo Persaud RN [address] [place] [address] Hand Former HelperHorticultural Technical Officer 11/05/24 documented as of this encounter
--- OUTSIDE RECORDS SUMMARY | 2024-11-25 10:22 | XMS_ITS | Encounter Summary ---
Author Organization [employer] Address [address] [facility] [address] 7t [place] [address] Care Team Providers Care Ash Kier Boiler Name Role Phone Lissy Gracia MD Primary Care Provider [phone] Reason for Visit * Reason Onset Date Comments Care Management 10/30/2024 [facility]- chart revi ew Encounter Details Date Type Department Care Team ([facility] st Contact Info) Description 10/30/2024 Telephone [facility] MEDICINE [address] [place] [address] Reinaldo Persaud RN [address] [place] [address] Care Management ([facility]- chart review) Social History Tobacco Use Types [...] the past 12 months, has t he [employer], gas, oil or water [employer] threatened to shut off services in your [...] Telephone Encounter - Reinaldo Persaud RN - 10/30/2024 9:14 AM EST [...] depression, and upper back pain. Specialists include [facility] Dental, PT, General Surgery, Pulmonary Disease, Cardiology, GI, and Vascular Surgery. ED visits within the last 12 months include [facility] 10/[place]/24, [facility] 10/23/24, [facility] 09/16/24, and [facility] 09/06/24. Last appointment in PCP office on 10/29/24. Next appointment scheduled for 11/19/24 with [facility] dental. documented in this encounter Plan of Treatment Upcoming Encounters Date Type Department Care Team (Late st Contact Info) Description 11/28/2024 9:00 AM EST Office Visit [facility] ADULT DENTAL [address] [place] [address] Wendi Pedroza 2024 9:00 AM EST Office Visit [facility] ADULT DENTAL [address] [place] [address] Pedroza Wendi 12/16/2024 3:45 PM EST Office Visit [facility] MEDICINE [address] [place] [address] Lissy Gracia MD [address] [place] [address] documented as of this encounter Visit Diagnoses Not on filedocumented in this encounter Additional Health Concerns Assessment Noted Time PHQ-9 Depression Total Score: 0 02/05/20 24 1:47 PM EDT documented as of this encounter Care Teams Ash Kier Boiler Relationship Specialty Start Date End Date Lissy Gracia MD [address] [place] [address] PCP - General Family Medicine 06/07/21 documented as of this encounter
--- OUTSIDE RECORDS SUMMARY | 2024-11-25 10:22 | XMS_ITS | Encounter Summary ---
Author Organization [employer] Address [address] [facility] [address] 7t [place] [address] Care Team Providers Care Rose Grower Name Role Phone Lissy Gracia MD Primary Care Provider [phone] Reinaldo Persaud RN Unavailable [phone] Encounter Details Date Type Department Care [...] Description 11/28/2024 9:00 AM EST Office Visit [facility] ADULT DENTAL [address] [place] [address] Wendi Pedroza 2024 9:00 AM EST Office Visit [facility] ADULT DENTAL [address] [place] [address] Wendi Pedroza 12/16/2024 3:45 PM EST Office Visit [facility] MEDICINE [address] [place] [address] Lissy Gracia MD [address] [place] [address] documented as of this encounter Visit Diagnoses Not on filedocumented in this encounter Additional Health Concerns Assessment Noted Time PHQ-9 Depression Total Score: 0 02/05/20 24 1:47 PM EDT documented as of this encounter Care Teams Rose Grower Relationship Specialty Start Date End Date Lissy Gracia MD [address] [place] [address] PCP - General Family Medicine 06/07/21 Reinaldo Persaud RN [address] [place] [address] FisherSmoking Pipe Mounter 11/05/24 documented as of this encounter
--- OUTSIDE RECORDS SUMMARY | 2024-11-25 10:22 | XMS_ITS | Encounter Summary ---
Author Organization [employer] Address [address] [facility] [address] [facility] [address] 7t [place] [address] Care Team Providers Care Animal Services Officer Name Role Phone Lissy Gracia MD Primary Care Provider Reinaldo Persaud RN Unavailable [phone] Encounter Details Date Type Department Care Team ([facility] st Contact Info) Description 11/14/2024 1:40 PM EST Office Visit [facility] WALK[facility]IN CENTER [address] [place] [address] Candice Moreland DO [address] [place], [place] [phone] Mild persistent asthma without complication (Primary Dx) [...] appt to December. History provided by: Patient japanese interpreter used: Yes Review of Systems Constitutional: Negative [...] Disp: 13 g, Rfl: 11 nystatin (Mycostatin) [id number] UNIT/ML suspension, Take 4 mL (400,000 Units) [...] Disp: 100 each, Rfl: 11 Scribe Attestation: Kenneth Keene, am serving as a scribe to [...] 9:00 AM EST Office Visit [facility] ADULT DENTAL [address] [place] [address] Wendi Pedroza 2024 9:00 AM EST Office Visit [facility] ADULT DENTAL [address] [place] [address] Wendi Pedroza 12/16/2024 3:45 PM EST Office Visit [facility] MEDICINE [address] [place] [address] Lissy Gracia MD [address] [place] [address] documented as of this encounter Procedures Procedure [...] NOW Rapid Molecular) (11/14/2024 1:52 PM EST) [facility] Influenza B Negative Negative, Indeterminate [facility] Swab 11/14/2024 1:52 PM EST Candice Moreland DO POINT OF CARE TEST ENTER/GOPAL T ORDERABLES Final Result Performing Organization Address City/[facility]/ZIP Co de Phone Number [facility] [address] [place] [phone] * Influenza A (ID NOW Rapid Molecular) (11/14/2024 1:52 PM EST) [facility] Influenza A Negative Negative, Indeterminate [facility] Swab 11/14/2024 1:52 PM EST Candice Moreland DO POINT OF CARE TEST ENTER/GOPAL T ORDERABLES Final Result Performing Organization Address [facility] Co de Phone Number [facility] [address] [place] [phone] * POCT rapid strep A manually resulted (11/14/2024 1:52 PM EST) [facility] Rapid Strep A Screen Negative Negative, None Detected [facility] Swab 11/14/2024 1:52 PM EST Candice Moreland DO POINT OF CARE TEST ENTER/GOPAL T ORDERABLES Final Result Performing Organization Address [facility] Co de Phone Number [facility] [address] [place] [phone] * POCT Rapid COVID Ag (11/14/2024 1:52 PM EST) [facility] Rapid COVID Ag Negative [facility] Swab 11/14/2024 1:52 PM EST us Candice Aniceto DO POINT OF CARE TEST ENTER/GOPAL T ORDERABLES Final Result [facility] [address] [place] [address] [phone] documented in this encounter Visit Diagnoses Diagnosis Mild persistent asthma without complication- Primary documented in this encounter Additional Health Concerns Assessment Noted Time PHQ-9 Depression Total Score: 0 02/05/20 24 1:47 PM EDT documented as of this encounter Care Teams Animal Services Officer Relationship Specialty Start Date End Date Lissy Gracia MD [address] [place] [address] PCP - General Family Medicine 06/07/21 Reinaldo Persaud RN [address] [place] [address] Metal FabricatorSpecial Education Case Manager 11/05/24 documented as of this encounter
--- OUTSIDE RECORDS SUMMARY | 2024-11-25 10:22 | XMS_ITS | Encounter Summary ---
Author Organization [employer] Address [address] [facility] [address] 7t [place] [address] Care Team Providers Care Allergist/Pediatric Pulmonologist Name Role Phone Lissy Gracia MD Primary Care Provider [phone] Reinaldo Persaud RN Unavailable [phone] Encounter Details Date Type Department Care [...] Description 11/28/2024 9:00 AM EST Office Visit [facility] ADULT DENTAL [address] [place] [address] Wendi Pedroza 2024 9:00 AM EST Office Visit [facility] ADULT DENTAL [address] [place] [address] Wendi Pedroza 12/16/2024 3:45 PM EST Office Visit [facility] MEDICINE [address] [place] [address] Lissy Gracia MD [address] [place] [address] documented as of this encounter Visit Diagnoses Not on filedocumented in this encounter Additional Health Concerns Assessment Noted Time PHQ-9 Depression Total Score: 0 02/05/20 24 1:47 PM EDT documented as of this encounter Care Teams Allergist/Pediatric Pulmonologist Relationship Specialty Start Date End Date Lissy Gracia MD [address] [place] [address] PCP - General Family Medicine 06/07/21 Reinaldo Persaud RN [address] [place] [address] Oil Refinery OperatorEnergy Conservation Specialist 11/05/24 documented as of this encounter
--- OUTSIDE RECORDS SUMMARY | 2024-11-25 10:22 | XMS_ITS | Encounter Summary ---
Author Organization [employer] Address [address] [facility] 7t [place] [address] Care Team Providers Care Repair Coil Winder Name Role Phone Lissy Gracia MD Primary Care Provider [phone] Reason for Referral * Consultation (Routine) - Closed Specialty Diagnoses / Procedures Referred By Contac t Referred To Contact Physical Therapy Diagnoses Upper back pain Rosana Cotton MD [address] [place] [address] Phone: tel: fax: [facility] [address] [place] [address] Phone: tel: fax: Referral ID Status Reason Start Date Expiration Date V isits Requested Visits Authorized [id number] Closed Specialty Services Required 10/29/2024 10/29/2025 20 20 Reason for Visit * Reason Comments Back Pain Encounter Details Date Type Department Care Team (Late st Contact Info) Description 10/29/2024 8:40 AM EST Office Visit [facility] WALK-IN CENTER [address] [place] [address] [phone] Rosana Cotton MD [address] [place] [address] [phone] Upper back pain (Primary Dx); Chronic cough [...] Keflex in October. Pt went to her combiner operator and will be going again on November [...] -Seek medical attention for worsening symptoms. I, Candice Villarreal, am serving as a scribe to [...] Visit [facility] ADULT DENTAL [address] [place] [address] Wendi Pedroza 2024 9:00 AM EST Office Visit [facility] ADULT DENTAL [address] [place] [address] Wendi Pedroza 12/16/2024 3:45 PM EST Office Visit [facility] MEDICINE [address] [place] [address] Lissy Gracia MD [address] [place] [address] Scheduled Referrals Name Type Priority Associated Diagnoses [...] documented as of this encounter Care Teams Repair Coil Winder Relationship Specialty Start Date End Date Lissy Gracia MD [address] [place] [address] PCP - General Family Medicine 06/07/21 documented as of this encounter
--- OUTSIDE RECORDS SUMMARY | 2024-11-25 10:22 | XMS_ITS | Encounter Summary ---
Author Organization [employer] Address [address] [facility] [address] 7t [place] [address] Care Team Providers Care Pocket Grinder Operator Name Role Phone Lissy Gracia MD Primary Care Provider [phone] Reinaldo Persaud RN Unavailable [phone] Reason for Visit * Reason Comments Med Refill Encounter Details Date Type Department Care Team ([facility] st Contact Info) Description 11/21/2024 Refill [facility] WALK[facility]IN CENTER [address] [place] [address] Candice Moreland DO [address] [place] [address] Social History Tobacco Use Types Packs/Day Years [...] Description 11/28/2024 9:00 AM EST Office Visit [facility] ADULT DENTAL [address] [place] [address] Wendi Pedroza 2024 9:00 AM EST Office Visit [facility] ADULT DENTAL [address] [place] [address] Wendi Pedroza 12/16/2024 3:45 PM EST Office Visit [facility] MEDICINE [address] [place] [address] Lissy Gracia MD [address] [place] [address] documented as of this encounter Visit Diagnoses Not on filedocumented in this encounter Additional Health Concerns Assessment Noted Time PHQ-9 Depression Total Score: 0 02/05/20 24 1:47 PM EDT documented as of this encounter Care Teams Pocket Grinder Operator Relationship Specialty Start Date End Date Lissy Gracia MD [address] [place] [address] PCP - General Family Medicine 06/07/21 Reinaldo Persaud RN [address] [place] [address] Pilot Safety InspectorProduction Shift Supervisor 11/05/24 documented as of this encounter
--- OUTSIDE RECORDS SUMMARY | 2024-11-25 10:22 | XMS_ITS | Encounter Summary ---
Author Organization [employer] Address [address] [facility] [address] 7t [place] [address] Care Team Providers Care Deflector Operator Name Role Phone Lissy Gracia MD Primary Care Provider [phone] Reinaldo Persaud RN Unavailable [phone] Reason for Visit * Reason Comments Acupuncture Encounter Details Date Type Department Care Team ([facility] st Contact Info) Description 11/11/2024 9:15 AM EST Office Visit [facility] MEDICINE [address] [place] [address] Irene Singletary MD [address] [place] [address] Chronic migraine without aura without status migrainosus, [...] Description 11/28/2024 9:00 AM EST Office Visit [facility] ADULT DENTAL [address] [place] [address] Wendi Pedroza 2024 9:00 AM EST Office Visit [facility] ADULT DENTAL [address] [place] [address] Pedroza Wendi 12/16/2024 3:45 PM EST Office Visit [facility] MEDICINE [address] [place] [address] Lissy Gracia MD [address] [place] [address] documented as of this encounter Visit Diagnoses Diagnosis Chronic migraine without aura without status migrainosus, not intractable- Primary Anxiety Anxiety state, unspecified documented in this encounter Additional Health Concerns Assessment Noted Time PHQ-9 Depression Total Score: 0 02/05/20 24 1:47 PM EDT documented as of this encounter Care Teams Deflector Operator Relationship Specialty Start Date End Date Lissy Gracia MD [address] [place] [address] PCP - General Family Medicine 06/07/21 Reinaldo Persaud RN [address] [place] [address] Silk Screen PainterCytology Technologist 11/05/24 documented as of this encounter
--- OUTSIDE RECORDS SUMMARY | 2024-11-25 10:22 | XMS_ITS | Encounter Summary ---
Author Organization [employer] Address [address] [facility] [address] 7t [place] [address] Care Team Providers Care City Plant Supervisor Name Role Phone Lissy Gracia MD Primary Care Provider [phone] Reinaldo Persaud RN Unavailable [phone] Reason for Visit * Reason Comments Care Coordination C3 [facility] Ammy bruce telephone call outreach Encounter Details Date Type Department Care Team (Latest Contact Info) Description 11/25/2024 Patient Outreach [facility] MEDICINE [address] [place] [address] Lissy Gracia MD [address] [place] [address] [facility]ination [facility] outreach) Social History Tobacco [...] encounter Progress Notes * Ammy Ziegler - 11/25/2024 9:24 AM EST CHW Ammy Ziegler placed outbound call to patient for follow up call on SDOH needs. No answer at thistime. LVM introducing herself from [facility] CM Department. Requested call back. CHW reinforced direct contact information or for any additional questionsor concerns and extended clinic hours on Mondays and Wednesdays, and Walk-In Urgent Care Located inLobby of [facility]. Patient provided with after-hours line for [facility], , which offer nighttime triage service and option to transfer to labor relations worker provider if needed. CHW will attempt another follow up call within 10 days. documented in this encounter Plan of Treatment Upcoming Encounters Date Type Department Care Team (Late st Contact Info) Description 11/28/2024 9:00 AM EST Office Visit [facility] ADULT DENTAL [address] [place] [address] Wendi Pedroza 2024 9:00 AM EST Office Visit [facility] ADULT DENTAL [address] [place] [address] Pedroza Wendi 12/16/2024 3:45 PM EST Office Visit [facility] MEDICINE [address] [place] [address] Lissy Gracia MD [address] [place] [address] documented as of this encounter Visit Diagnoses Not on filedocumented in this encounter Additional Health Concerns Assessment Noted Time PHQ-9 Depression Total Score: 0 02/05/20 24 1:47 PM EDT documented as of this encounter Care Teams City Plant Supervisor Relationship Specialty Start Date End Date Lissy Gracia MD [address] [place] [address] PCP - General Family Medicine 06/07/21 Reinaldo Persaud RN [address] [place] [address] Curtain MenderHealth Education Assistant 11/05/24 documented as of this encounter
--- OUTSIDE RECORDS SUMMARY | 2024-11-25 10:22 | XMS_ITS | Encounter Summary ---
Author Organization [employer] Address [address] [facility] [address]t [place] [address] Care Team Providers Care Vehicle Fare Collector Name Role Phone Lissy Gracia MD Primary Care Provider [phone] Reinaldo Persaud RN Unavailable [phone] Reason for Visit * Reason Comments Care Coordination C3 -ARIES bruce telelphone call outreach Encounter Details Date Type Department Care Team (Latest Contact Info) Description 11/05/2024 Patient Outreach [facility] MEDICINE [address] [place] [address] Lissy Gracia MD [address] [place] [address] Care Coordination (C3 ASHLEY Ziegler telelphone call [...] outbound call to patient introducing herself from [facility] CM Department, in regards to offering CM-CHW [...] Walk-In Urgent Care Located in Lobby of [facility].Patient provided with after-hours line for [facility], , which offer night time triage serviceand option to transfer to production department supervisor provider if needed. Patient verbalizes understanding, and able torepeat back to movie writer. documented in this encounter Plan of Treatment Upcoming Encounters Date Type Department Care Team (Late st Contact Info) Description 11/28/2024 9:00 AM EST Office Visit [facility] ADULT DENTAL [address] [place] [address] Wendi Pedroza 2024 9:00 AM EST Office Visit [facility] ADULT DENTAL [address] [place] [address] Pedroza, Wendi 12/16/2024 3:45 PM EST Office Visit [facility] MEDICINE [address] [place] [address] Lissy Gracia MD [address] [place] [address] documented as of this encounter Visit Diagnoses Not on filedocumented in this encounter Additional Health Concerns Assessment Noted Time PHQ-9 Depression Total Score: 0 02/05/20 24 1:47 PM EDT documented as of this encounter Care Teams Vehicle Fare Collector Relationship Specialty Start Date End Date Lissy Gracia MD [address] [place] [address] PCP - General Family Medicine 06/07/21 Reinaldo Persaud RN [address] [place] [address] Leaf Conditioner HelperLog Roller 11/05/24 documented as of this encounter
--- OUTSIDE RECORDS SUMMARY | 2024-11-25 10:22 | XMS_ITS | Encounter Summary ---
Author Organization [employer] Address [address] 7t [place] [address] Care Team Providers Care Testing Consultant Name Role Phone Lissy Gracia MD Primary Care Provider [phone] Reinaldo Persaud RN Unavailable [phone] Encounter Details Date Type Department Care [...] Description 11/28/2024 9:00 AM EST Office Visit [facility] [address] [place] [address]69 Wendi Pedroza 2024 9:00 AM EST Office Visit [facility] [address] [place] [address] Wendi Pedroza 12/16/2024 3:45 PM EST Office Visit [facility] [address] [place] [address] 85168 Lissy Gracia MD [address] [place] [address] documented as of this encounter Visit Diagnoses Not on filedocumented in this encounter Additional Health Concerns Assessment Noted Time PHQ-9 Depression Total Score: 0 02/05/20 24 1:47 PM EDT documented as of this encounter Care Teams Testing Consultant Relationship Specialty Start Date End Date Lissy Gracia MD [address] [place] [address] 80199 PCP - General Family Medicine 06/07/21 Reinaldo Persaud RN [address] [place] [address] 29792 Pedigree ResearcherMail Caller 11/05/24 documented as of this encounter
--- OUTSIDE RECORDS SUMMARY | 2024-11-25 10:22 | XMS_ITS | Encounter Summary ---
Author Organization [employer] Address [address] 7t [place] [address] Care Team Providers Care Final Installer Inspector Name Role Phone Lissy Gracia MD Primary Care Provider [phone] Reinaldo Persaud RN Unavailable [phone] Encounter Details Date Type Department Care [...] Office Visit [facility]ULT DENTAL [address] [place] [address] Wendi Pedroza 2024 9:00 AM EST Office Visit [facility] [address] [place] [address] Wendi Pedroza 12/16/2024 3:45 PM EST Office Visit [facility] MED[facility]INE [address] [place] [address]75 Lissy Gracia MD [address] [place] [address] documented as of this encounter Visit Diagnoses Not on filedocumented in this encounter Additional Health Concerns Assessment Noted Time PHQ-9 Depression Total Score: 0 02/05/20 24 1:47 PM EDT documented as of this encounter Care Teams Final Installer Inspector Relationship Specialty Start Date End Date Lissy Gracia MD [address] [place] [address] PCP - General Family Medicine 06/07/21 Reinaldo Persaud RN [address] [place] [address] 20684 Nut PickerGas Station Operator 11/05/24 documented as of this encounter
--- OUTSIDE RECORDS SUMMARY | 2024-11-25 10:22 | XMS_ITS | Encounter Summary ---
Author Organization [employer] Address [address] [facility] [address] 7t [place] [address] Care Team Providers Care Senior Sales Operations Analyst Name Role Phone Lissy Gracia MD Primary Care Provider [phone] Encounter Details Date Type Department Care Team [...] Description 11/28/2024 9:00 AM EST Office Visit [facility]ULT D[facility] [address] [place] [address] Wendi Pedroza 2024 9:00 AM EST Office Visit [facility]ULT [facility] [address] [place] [address] Wendi Pedroza 12/16/2024 3:45 PM EST Office Visit [facility] [address] [place] [address] 39287 Lissy Gracia MD [address] [place] [address] documented as of this encounter Visit Diagnoses Not on filedocumented in this encounter Additional Health Concerns Assessment Noted Time PHQ-9 Depression Total Score: 0 02/05/20 24 1:47 PM EDT documented as of this encounter Care Teams Senior Sales Operations Analyst Relationship Specialty Start Date End Date Lissy Gracia MD [address] [place] [address] PCP - General Family Medicine 06/07/21 documented as of this encounter
--- OUTSIDE RECORDS SUMMARY | 2024-11-25 10:22 | XMS_ITS | Encounter Summary ---
Author Organization [employer] Address [address] [facility] [address] [address] [address] 7t [place] [address] Care Team Providers Care Mercury Washer Name Role Phone Lissy Gracia MD Primary Care Provider [phone] Reinaldo Persaud RN Unavailable [phone] Reason for Visit * Reason Onset Date Comments Care Management 11/05/2024 C3CM- initial as sessment/ enrollment. Encounter Details Date Type Department Care Team ([facility] st Contact Info) Description 11/05/2024 Telephone [facility] MEDICINE [address] [place], [place] [phone] Reinaldo Persaud RN [address] [place], [place] [phone] Care Management (C3CM- initial assessment/ enrollment.) Social [...] and recurrent depression. Patient reports being followedby [facility] for outpatient behavioral health and psych. She [...] as needed. Patient reports being followed by [facility] MASK DESIGNER, [facility] GI, [facility] General Surgery, and [facility] Cardiology. She is scheduled to see Cardiology on 12/09/24 at 10:00am. She is also scheduled to see MASK DESIGNER on 11/26/24 at 3:30pm. Per patient, missed [...] to f/u with the Pain Clinic at [facility] on 11/11/24. She is aware of this [...] understanding, and able to repeat back to sign writer hand. A follow up call will be placed within 10 days, patient agrees with plan. documented in this encounter Plan of Treatment Upcoming Encounters Date Type Department Care Team (Late st Contact Info) Description 11/28/2024 9:00 AM EST Office Visit [facility] ADULT DENTAL [address] [place] [address] Kasia Wendi 2024 9:00 AM EST Office Visit [facility] ADULT D[facility]AL [address] [place] [address] Pedroza, Wendi 12/16/2024 3:45 PM EST Office Visit [facility] MED[facility]INE [address] [place] [address] 96366 Lissy Gracia MD [address] [place] [address] 48987 documented as of this encounter Visit Diagnoses Not on filedocumented in this encounter Additional Health Concerns Assessment Noted Time PHQ-9 Depression Total Score: 0 02/05/20 24 1:47 PM EDT documented as of this encounter Care Teams Mercury Washer Relationship Specialty Start Date End Date Lissy Gracia MD [address] [place] [address] 48403 PCP - General Family Medicine 06/07/21 Reinaldo Persaud RN [address] [place] [address] 9[address]62 Teacher Adventure EducationCommercial Loan Collection Officer 11/05/24 documented as of this encounter
--- OUTSIDE RECORDS SUMMARY | 2024-11-25 10:22 | XMS_ITS | Encounter Summary ---
Author Organization [employer] [facility] Address [address] 7t [place] [address] Care Team Providers Care Lang Interpreter Name Role Phone Lissy Gracia MD Primary Care Provider [phone] Reinaldo Persaud RN Unavailable [phone] Reason for Visit * Reason Comments Extraction Encounter Details Date Type Department Care Team ([facility] st Contact Info) Description 11/19/2024 8:00 AM EST Office Visit [facility] ADULT DENTAL [address] [place] [address] Ciro Rockwell DDS [address] [place] [address] Retained dental root (Primary Dx) Social History [...] female. Time Out: No data recorded Location: [facility] Tooth: Maxilla and #16 Procedure: Extraction Verified the above with patient, biology research assistant, and provider. Confirmed via patient's chart, intraorally and by radiographs. Staff Midwife: not applicable Chief Complaint Patient presents with Extraction Medical Hx: Vitals: Blood pressure 138/88. 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 [...] not swallow. 13 g 11 nystatin (Mycostatin) 700109 UNIT/ML suspension Take 4 mL (400,000 Units) [...] NV: F/U as needed 6 mo recall Resource Efficiency Manager: Krista Gonzales Dentist: Ciro Rockwell DDS documented in this encounter Plan of Treatment Upcoming Encounters Date Type Department Care Team (Late st Contact Info) Description 11/28/2024 9:00 AM EST Office Visit [facility] ADULT DENTAL [address] [place] [address] Wendi Pedroza 2024 9:00 AM EST Office Visit [facility] ADULT DENTAL [address] [place] [address] Wendi Pedroza 12/16/2024 3:45 PM EST Office Visit [facility] MEDICINE [address] [place] [address] Lissy Gracia MD [address] [place] [address] 46545 Scheduled Orders Name Type Priority Associated Diagnoses [...] documented as of this encounter Care Teams Lang Interpreter Relationship Specialty Start Date End Date Lissy Gracia MD [address] [place] [address] 39042 PCP - General Family Medicine 06/07/21 Reinaldo Persaud RN [address] [place] [address] 32410 Melt Down Furnace OperatorCompositor Apprentice 11/05/24 documented as of this encounter
--- OUTSIDE RECORDS SUMMARY | 2024-11-25 10:22 | XMS_ITS | Encounter Summary ---
Author Organization [employer] [facility] Address [address] 7t [place] [address] Care Team Providers Care Intermediate School Teacher Name Role Phone Lissy Gracia MD Primary Care Provider [phone] Reinaldo Persaud RN Unavailable [phone] Encounter Details Date Type Department Care [...] [facility] ADULT DENTAL [address] [place] [address] Wendi Pedroza 2024 9:00 AM EST Office Visit [facility] ADULT D[facility] [address] [place] [address] Wendi Pedroza 12/16/2024 3:45 PM EST Office Visit [facility] MED[facility]INE [address] [place] [address] Lissy Gracia MD [address] [place] [address] documented as of this encounter Visit Diagnoses Not on filedocumented in this encounter Care Teams Intermediate School Teacher Relationship Specialty Start Date End Date Lissy Gracia MD [address] [place] [address] PCP - General Family Medicine 06/07/21 Reinaldo Persaud, LILIANE [address] [place] [address] Tobacco WeigherPlate And Frame Filter Operator 11/05/24 documented as of this encounter
--- OUTSIDE RECORDS SUMMARY | 2024-11-25 10:22 | XMS_ITS | Encounter Summary ---
Author Organization [employer] Address [address] 7t [place] [address] Care Team Providers Care Stoker Erector Name Role Phone Lissy Gracia MD Primary Care Provider [phone] Reinaldo Persaud RN Unavailable Encounter Details Date Type Department Care Team ([facility] st Contact Info) Description 01/19/2024 Telephone [facility] MEDICINE [address] [place], [place] [phone] Lissy Gracia MD [address] [place] [address] Social History Tobacco Use Types Packs/Day Years [...] Description 11/28/2024 9:00 AM EST Office Visit [facility] ADULT DENTAL [address] [place] [address] Kasia Wendi 2024 9:00 AM EST Office Visit [facility] ADULT DENTAL [address] [place] [address] 83727 Larissa Pedrozasa 12/16/2024 3:45 PM EST Office Visit [facility] MEDICINE [address] [place] [address] 67873 Lissy Gracia MD [address] [place] [address] 20887 documented as of this encounter Visit Diagnoses Not on filedocumented in this encounter Additional Health Concerns Assessment Noted Time PHQ-9 Depression Total Score: 0 06/09/20 23 3:37 PM EDT documented as of this encounter Care Teams Stoker Erector Relationship Specialty Start Date End Date Lissy Gracia MD [address] [place] [address] PCP - General Family Medicine 06/07/21 Reinaldo Persaud RN [address] [place] [address] 61638 Tools AdministratorWelder Setter Resistance Machine 11/05/24 documented as of this encounter
--- OUTSIDE RECORDS SUMMARY | 2024-11-25 10:22 | XMS_ITS | Encounter Summary ---
Author Organization [employer] Address [address] [facility] [address] 7t [place] [address] Care Team Providers Care Janitorial Account Manager Name Role Phone Lissy Gracia MD Primary Care Provider [phone] Encounter Details Date Type Department Care Team ([facility] st Contact Info) Description 10/30/2024 Orders Only [facility] External Provider, [facility] Social History Tobacco Use Types Packs/Day Years [...] 11/28/2024 9:00 AM EST Office Visit [facility] ADULT DENTAL [address] [place] [address] Wendi Pedroza 2024 9:00 AM EST Office Visit [facility] ADULT DENTAL [address] [place] [address] 38937 Wendi Pedroza 12/16/2024 3:45 PM EST Office Visit [facility] MEDICINE [address] [place] [address] 97282 Lissy Gracia MD [address] [place] [address] 36595 documented as of this encounter Procedures Procedure [...] EST Narrative 10/30/2024 1:44 AM EST ? [facility] ?[address] ?[place] [address] ?XRay Report ? Signed ? Patient: Ibanez Mundo,Irene ?MR#: ?? [id number] ? : 1975 ?Acct:[id number] ? Age/Sex: 48 / F ?ADM Date: 10/30/24 ? Loc: HO.ED ? Attending Dr: ? Ordering Physician: Generic ED Physician ?? Date of Service: 10/30/24 ?? Procedure(s): XR chest 2V ?? Accession Number(s): [id number] ? cc: Generic ED Physician; [facility] ? CLINICAL HISTORY: cough, lung pain [...] DD/ 0142 ? TD/TT: 10/30/24 0142 ? Harness Cleaner: ? Procedure Note [place], Image - 10/30/2024 [place] [address] XRay Report Signed Patient: Irene GarciaMR#: [id number] : 1975Acct:[id number] Age/Sex: 48 / FADM Date: 10/30/24 Loc: HO.ED Attending Dr: Ordering Physician: Generic ED Physician Date of Service: 10/30/24 Procedure(s): XR chest 2V Accession Number(s): [id number] cc: Generic ED Physician; [facility] CLINICAL HISTORY: cough, lung pain 2 [...] in OV> 10/30/24142 DD/ 1 TD/TT: 10/30/24141 Harness Cleaner: [facility] External Provider IMG XR PROCEDURES Final Result * SARS-CoV-2 RNA, Influenza A/B, and RSV RNA, Ql NAAT (10/30/2024 1:09 AM EST) Influenza A PCR NEGATIVE Negative [facility] Influenza B PCR NEGATIVE Negative [facility] Resp Syncy Virus RNA Qual PCR NEGATIVE Negative [facility] SARS COV2 PCR NEGATIVE Negative [facility] Comment:All test results mus t [...] use by authorized laboratories.Testing performed on the [employer] GeneXpert utilizingreal-time RT-PCR.All SARS CoV2 and positive influenza A/B results arereported to [facility]. 10/30/2024 1:09 AM EST 10/30/2024 1:12 AM EST Generic External Data Provider LAB MICROBIOLOGY - GENERAL ORDERABLES Final Result [facility] [address] [place] [address] [phone] documented in this encounter Visit Diagnoses Not on filedocumented in this encounter Additional Health Concerns Assessment Noted Time PHQ-9 Depression Total Score: 0 02/05/20 24 1:47 PM EDT documented as of this encounter Care Teams Janitorial Account Manager Relationship Specialty Start Date End Date Lissy Gracia MD [address] [place] [address] PCP - General Family Medicine 06/07/21 documented as of this encounter
--- OUTSIDE RECORDS SUMMARY | 2024-11-25 10:22 | XMS_ITS | Encounter Summary ---
Author Organization [employer] Address [address] 7t [place] [address] Care Team Providers Care Electrician Refinery Name Role Phone Lissy Gracia MD Primary Care Provider [phone] Reinaldo Persaud RN Unavailable [phone] Encounter Details Date Type Department Care Team ([facility] Contact Info) Description 11/11/2024 11:00 AM EST Office Visit [facility] MEDICINE [address] [place] [address] Lissy Gracia MD [address] [place] [address] Fibromyalgia (Primary Dx); Thrush, oral Social History [...] the past 12 months, has t he [employer], gas, oil or water [employer] threatened to shut off services in your [...] Cymbalta Thrush, oral Relevant Medications nystatin (Mycostatin) 223594 UNIT/ML suspension Follow up: 1 month for [facility]. Follow up as scheduled with PCP, sooner as needed. documented in this encounter Miscellaneous Notes * Assessment & Plan Note - Lissy Gracia MD - 11/11/2024 12:48 PM EST Associated [...] 11/28/2024 9:00 AM EST Office Visit [facility] ADULT DENTAL [address] [place] [address] Wendi Pedroza 2024 9:00 AM EST Office Visit [facility] ADULT DENTAL [address] [place] [address] Wendi Pedroza 12/16/2024 3:45 PM EST Office Visit [facility] MEDICINE [address] [place] [address] Lissy Gracia MD [address] [place] [address] documented as of this encounter Visit Diagnoses Diagnosis Fibromyalgia- Primary Unspecified myalgia and myositis Thrush, oral documented in this encounter Additional Health Concerns Assessment Noted Time PHQ-9 Depression Total Score: 0 02/05/20 24 1:47 PM EDT documented as of this encounter Care Teams Electrician Refinery Relationship Specialty Start Date End Date Lissy Gracia MD [address] [place] [address] 92598 PCP - General Family Medicine 06/07/21 Reinaldo Persaud RN [address] [place] [address] 64615 Auto PainterShip Fastener 11/05/24 documented as of this encounter
--- OUTSIDE RECORDS SUMMARY | 2024-11-25 10:22 | XMS_ITS | Encounter Summary ---
Author Organization [employer] Address [address] [facility] [address] 7t [place] [address] Care Team Providers Care Sql Report Analyst Name Role Phone Lissy Gracia MD Primary Care Provider [phone] Reinaldo Persaud RN Unavailable [phone] Reason for Visit * Reason Onset Date Comments Lab Orders 11/18/2024 Encounter Details Date Type Department Care Team ([facility] st Contact Info) Description 11/18/2024 Telephone [facility] [address] [place] [address] Lissy Gracia MD [address] [place], [place] [phone] Lab Orders Social History Tobacco Use Types [...] t he electric, gas, oil or water [employer] threatened to shut off services in your [...] 10:55 AM EST TC placed to patient [phone] to inform [employer] order placed and patient [...] EST Office Visit [facility] ADULT DENTAL [address] [place] [address] Pedroza, Wendi 2024 9:00 AM EST Office Visit [facility] ADULT DENT[facility] [address] [place] [address] Pedroza, Wendi 12/16/2024 3:45 PM EST Office Visit [facility] MED[facility] [address] [place] [address] Lissy Gracia MD [address] [place] [address] 26506 Scheduled Orders Name Type Priority Associated Diagnoses [...] documented as of this encounter Care Teams Sql Report Analyst Relationship Specialty Start Date End Date Lissy Gracia MD [address] [place] [address] 24329 PCP - General Family Medicine 06/07/21 Reinaldo Persaud RN [address] [place] [address] 49354 Foundry HelperEmergency Department Manager 11/05/24 documented as of this encounter
--- OUTSIDE RECORDS SUMMARY | 2024-11-25 10:22 | XMS_ITS | Encounter Summary ---
Author Organization [employer] Address [address] [facility] [address] 7t [place] [address] Care Team Providers Care Tree Girdler Name Role Phone Lissy Gracia MD Primary Care Provider [phone] Reinadlo Persaud RN Unavailable [phone] Reason for Visit * Reason Onset Date Comments Med Refill 06/20/2024 Encounter Details Date Type Department Care Team ([facility] st Contact Info) Description 06/20/2024 Telephone [facility] MEDICINE [address] [place] [address] Lissy Gracia MD [address] [place] [address] Med Refill Social History Tobacco Use Types [...] MG/0.5ML solution pen-injector To be sent to: [facility] [place], [place] - [address] [facility] documented in this encounter Plan of Treatment Upcoming Encounters Date Type Department Care Team (Late st Contact Info) Description 11/28/2024 9:00 AM EST Office Visit [facility] ADULT DENTAL [address] [place] [address] Wendi Pedroza 2024 9:00 AM EST Office Visit [facility] ADULT DENTAL [address] [place] [address] Wendi Pedroza 12/16/2024 3:45 PM EST Office Visit [facility] MEDICINE [address] [place] [address] Lissy Graica MD [address] [place] [address] [phone] documented as of this encounter Visit Diagnoses Not on filedocumented in this encounter Additional Health Concerns Assessment Noted Time PHQ-9 Depression Total Score: 0 02/05/20 24 1:47 PM EDT documented as of this encounter Care Teams Tree Girdler Relationship Specialty Start Date End Date Lissy Gracia MD [address] [place], [place] [phone] PCP - General Family Medicine 06/07/21 Reinaldo Persaud RN [address] [place] [address] 18921 Steam Plant Control Room OperatorMaterial Lister 11/05/24 documented as of this encounter
--- OUTSIDE RECORDS SUMMARY | 2024-11-25 10:22 | XMS_ITS | Encounter Summary ---
Author Organization [employer] Address [address] [facility] [address] 7[address] [place] [address] Care Team Providers Care Toll Booth Operator Name Role Phone Lissy Gracia MD Primary Care Provider [phone] Reason for Visit * Reason Onset Date Comments Results 10/29/2024 Encounter Details Date Type Department Care Team ([facility] Contact Info) Description 10/29/2024 Telephone [facility] MEDICINE 230 [place], [place] [phone] Anitha Reed RN [address] [place] [address] Results Social History Tobacco Use Types Packs/Day [...] 3:12 PM EST TC placed to patient [phone] to inform of below message. Patient verbalized [...] Visit [facility] ADULT DENTAL [address] [place] [address] Wendi Pedroza 2024 9:00 AM EST Office Visit [facility] ADULT DENTAL [address] [place] [address] Wendi Pedroza 12/16/2024 3:45 PM EST Office Visit [facility] MEDICINE [address] [place] [address] Lissy Gracia MD [address] [place] [address] documented as of this encounter Visit Diagnoses Not on filedocumented in this encounter Additional Health Concerns Assessment Noted Time PHQ-9 Depression Total Score: 0 02/05/20 24 1:47 PM EDT documented as of this encounter Care Teams Toll Booth Operator Relationship Specialty Start Date End Date Lissy Gracia MD [address] [place] [address] PCP - General Family Medicine 06/07/21 documented as of this encounter
--- OUTSIDE RECORDS SUMMARY | 2024-11-25 10:22 | XMS_ITS | Encounter Summary ---
Author Organization [employer] Address [address] 7t [place] [address] Care Team Providers Care Wharf Helper Name Role Phone Lissy Gracia MD Primary Care Provider [phone] Reinaldo Persaud RN Unavailable [phone] Reason for Visit * Reason Onset Date Comments Care Management 11/15/2024 C3CM- f/u call Encounter Details Date Type Department Care Team ([facility] st Contact Info) Description 11/15/2024 Telephone [facility] [address] [place], [place] [phone] Reinaldo Persaud, RN [address] [place], [place] [phone] Care Management (C3CM- f/u call) Social History [...] the past 12 months, has t he [employer], gas, oil or water [employer] threatened to shut off services in your [...] has been seen in the walk in [place] x2 with asthma/ respiratory symptoms. Patient was last seen on 11/14/24. Per patient, stopped by her Fulfillment Specialist's office this morning to report an increase [...] appt scheduled on 11/27/24 at 11:00am at [address] [place] [address] in [place]. She verbalizes understanding. Patient also aware of her scheduled visit with [facility] CHIEF [facility]ERK on 11/26/24 at 3:30pm. Patient states she [...] on Walk-In Urgent Care located in [facility] of [facility]. Patient provided with after-hours line for [facility], , which offer night time triage service and option to transfer to button clamper provider if needed. Patient verbalizes understanding, and able to r epeat back to jingle writer. A follow up call will be [...] 9:00 AM EST Office Visit [facility] [address] [place] [address] Wendi Pedroza 2024 9:00 AM EST Office Visit [facility] [address] [place] [address] Wendi Pedroza 12/16/2024 3:45 PM EST Office Visit [facility] [address] [place] [address] Lissy Gracia MD 230 [place] [address] documented as of this encounter Visit Diagnoses Not on filedocumented in this encounter Additional Health Concerns Assessment Noted Time PHQ-9 Depression Total Score: 0 02/05/20 24 1:47 PM EDT documented as of this encounter Care Teams Wharf Helper Relationship Specialty Start Date End Date Lissy Gracia MD [address] [place] [address] PCP - General Family Medicine 06/07/21 Reinaldo Persaud RN [address] [place] [address] Fire Safety DirectorManager Icu 11/05/24 documented as of this encounter
--- OUTSIDE RECORDS SUMMARY | 2024-11-25 10:22 | XMS_ITS | Encounter Summary ---
Author Organization [employer] Address [address] 7t [place] [address] Care Team Providers Care Plant Breeder Scientist Name Role Phone Lissy Gracia MD Primary Care Provider [phone] Reinaldo Persaud RN Unavailable [phone] Reason for Visit * Reason Comments Acupuncture Encounter Details Date Type Department Care Team ([facility] st Contact Info) Description 11/18/2024 9:00 AM EST Office Visit [facility] [address] [place] [address] Irene Singletary MD 230 [place] [address] Chronic migraine without aura without status migrainosus, [...] Description 11/28/2024 9:00 AM EST Office Visit [facility]ULT D[facility] [address] [place] [address] Wendi Pedroza 2024 9:00 AM EST Office Visit [facility] [address] [place] [address] Pedroza, Wendi 12/16/2024 3:45 PM EST Office Visit [facility] [address] [place] [address] Lissy Gracia MD [address] [place] [address] documented as of this encounter Visit Diagnoses Diagnosis Chronic migraine without aura without status migrainosus, not intractable- Primary Anxiety Anxiety state, unspecified documented in this encounter Additional Health Concerns Assessment Noted Time PHQ-9 Depression Total Score: 0 02/05/20 24 1:47 PM EDT documented as of this encounter Care Teams Plant Breeder Scientist Relationship Specialty Start Date End Date Lissy Gracia MD 230 [place] [address] PCP - General Family Medicine 06/07/21 Reinaldo Persaud RN [address] [place] [address] Mammography SupervisorSenior Marketing Coordinator 11/05/24 documented as of this encounter
--- OUTSIDE RECORDS SUMMARY | 2024-11-25 10:22 | XMS_ITS | Encounter Summary ---
Author Organization [employer] Address [address] 7t [place] [address] Care Team Providers Care Underwear Finisher Name Role Phone Lissy Gracia MD Primary Care Provider [phone] Reinaldo Persaud RN Unavailable [phone] Reason for Visit * Reason Comments Med Refill Encounter Details Date Type Department Care Team ([facility] st Contact Info) Description 08/19/2024 Refill [facility] [address] [place] [address] Adriana Ramesh MD [address] [place], [place] [phone] Type 2 diabetes mellitus with hyperglycemia, without long-term current use of insulin ([facility]) Social History Tobacco Use Types Packs/Day Years [...] 11/28/2024 9:00 AM EST Office Visit [facility] ADULT [facility] [address] [place] [address] Wendi Pedroza 2024 9:00 AM EST Office Visit [facility] [address] [place] [address] Wendi Pedroza 12/16/2024 3:45 PM EST Office Visit [facility] [address] [place] [address] Lissy Gracia MD [address] [place] [address] documented as of this encounter Visit Diagnoses Diagnosis Type 2 diabetes mellitus with hyperglycemia, without long-term current use of insulin ([facility]) documented in this encounter Additional Health Concerns Assessment Noted Time PHQ-9 Depression Total Score: 0 02/05/20 24 1:47 PM EDT documented as of this encounter Care Teams Underwear Finisher Relationship Specialty Start Date End Date Lissy Gracia MD 230 [place] [address] PCP - General Family Medicine 06/07/21 Reinaldo Persaud RN [address] [place] [address] Cabinet FinisherPipeline Dispatcher 11/05/24 documented as of this encounter
--- OUTSIDE RECORDS SUMMARY | 2024-11-25 10:22 | XMS_ITS | Encounter Summary ---
Author Organization [employer] Address [address] [facility] [address] 7t [place] [address] Care Team Providers Care Bank Examiner Name Role Phone Lissy Gracia MD Primary Care Provider [phone] Reinaldo Persaud RN Unavailable [phone] Reason for Visit * Reason Comments Asthma Encounter Details Date Type Department Care Team ([facility] st Contact Info) Description 11/07/2024 1:20 PM EST Office Visit [facility] [address] [place], [place] [phone] Candice Moreland DO [address] [place], [place] [phone] Mild persistent asthma with acute exacerbation (Primary [...] they never came. History provided by: Patient certified court/medical interpreter used: Yes (Telly Casillas) Asthma Severity: [...] 11/28/2024 9:00 AM EST Office Visit [facility] [address] [place] [address] Wendi Pedroza 2024 9:00 AM EST Office Visit [facility] [address] [place] [address] Wendi Pedroza 12/16/2024 3:45 PM EST Office Visit [facility] [address] [place] [address] Lissy Gracia MD [address] [place], [place] [phone] documented as of this encounter Procedures Procedure [...] PM EST) Influenza B Negative Negative, Indeterminate [facility] Swab 11/07/2024 1:25 PM EST us Candice Moreland DO POINT OF CARE TEST ENTER/GOPAL T ORDERABLES Final Result [facility] [address] [place] [address] [phone] * Influenza A (ID NOW Rapid Molecular) (11/07/2024 1:25 PM EST) Influenza A Negative Negative, Indeterminate [facility] Swab 11/07/2024 1:25 PM EST Candice Moreland DO POINT OF CARE TEST ENTER/GOPAL T ORDERABLES Final Result Performing Organization Address City/[facility] Co de Phone Number [facility] [address] [place] [address] [phone] * POCT Rapid COVID Ag (11/07/2024 1:25 PM EST) Rapid COVID Ag Negative [facility] Swab 11/07/2024 1:25 PM EST Candice Moreland DO POINT OF CARE TEST ENTER/GOPAL T ORDERABLES Final Result Performing Organization Address [facility] de Phone Number [facility] [address] [place] [address] [phone] documented in this encounter Visit Diagnoses Diagnosis Mild persistent asthma with acute exacerbation- Primary documented in this encounter Additional Health Concerns Assessment Noted Time PHQ-9 Depression Total Score: 0 02/05/20 24 1:47 PM EDT documented as of this encounter Care Teams Bank Examiner Relationship Specialty Start Date End Date Lissy Gracia MD [address] [place] [address] PCP - General Family Medicine 06/07/21 Reinaldo Persaud RN [address] [place] [address] Sql DeveloperTablet Making Machine Operator Helper 11/05/24 documented as of this encounter
--- OUTSIDE RECORDS SUMMARY | 2024-11-25 10:22 | XMS_ITS | Encounter Summary ---
Author Organization [employer] Address [address] 7t [place] [address] Care Team Providers Care Site Interpreter Name Role Phone Lissy Gracia MD Primary Care Provider [phone] Reinaldo Persaud RN Unavailable [phone] Reason for Visit * Reason Comments Care Coordination C3 [facility] Ammy bruce telephone call outreach Encounter Details Date Type Department Care Team (Latest Contact Info) Description 11/08/2024 Patient Outreach [facility] [address] [place] [address] Lissy Gracia MD [address] [place] [address] Care Coordination ([facility]3 [facility] Ziegler telephone call outreach) Social History Tobacco [...] outbound call to patient introducing herself from [facility] CM Department, in regard to remind patient of appt for 11/11/24 @ 11:00AM for Pain Clinic @[facility]. Patient's name and was confirmed. Patient is aware and confirmed will be available and has no barriers on attending this appointment. Patient verbalized understanding and agrees with plan. documented in this encounter Plan of Treatment Upcoming Encounters Date Type Department Care Team (Late st Contact Info) Description 11/28/2024 9:00 AM EST Office Visit [facility] ADULT D[facility] [address] [place] [address] Pedroza, 2024 9:00 AM EST Office Visit [facility] [address] [place] [address] Wendi Pedroza 12/16/2024 3:45 PM EST Office Visit [facility] [address] [place] [address] Lissy Gracia MD [address] [place] [address] documented as of this encounter Visit Diagnoses Not on filedocumented in this encounter Additional Health Concerns Assessment Noted Time PHQ-9 Depression Total Score: 0 02/05/20 24 1:47 PM EDT documented as of this encounter Care Teams Site Interpreter Relationship Specialty Start Date End Date Lissy Gracia MD [address] [place] [address] PCP - General Family Medicine 06/07/21 Reinaldo Persaud RN [address] [place] [address] Locker Room ClerkDirector Service 11/05/24 documented as of this encounter
--- OUTSIDE RECORDS SUMMARY | 2024-11-25 10:22 | XMS_ITS | Encounter Summary ---
Author Organization [employer] Address [address] 7t [place] [address] Care Team Providers Care Airborne Mission Systems Superintendent Name Role Phone Lissy Gracia MD Primary Care Provider [phone] Reason for Visit * Reason Comments Care Coordination C3 ASHLEY bruce telephone call outreach Encounter Details Date Type Department Care Team (Latest Contact Info) Description 10/30/2024 Patient Outreach [facility] [address] [place] [address] Lissy Gracia MD [address] [place] [address] Care Coordination (C3 ASHLEY Ziegler telephone call [...] from [facility] CM Department, in regards to offering services. Patient's name and was confirmed. Patient agrees toparticipate in program. Appt. for initial assessment scheduled for 11/05/2024 @ 1:00PM. CHW reinforced direct contact information or for any additional questions or concerns and extended clinic hours on Mondays and Wednesdays, and Walk-In Urgent Care Located in [facility] of [facility]. Patient provided with after-hours line for [facility], , which offer night time triage service and option to transfer to endodontics dentist provider if needed. Patient verbalizes understanding, and able to repeat back to specifications writer. documented in this encounter Plan of Treatment Upcoming Encounters Date Type Department Care Team (Late st Contact Info) Description 11/28/2024 9:00 AM EST Office Visit [facility] ADULT D[facility]AL [address] [place] [address] Wendi Pedroza 2024 9:00 AM EST Office Visit [facility] [address] [place] [address] PedrozaLarissasa 12/16/2024 3:45 PM EST Office Visit [facility] [address] [place] [address] Lissy Gracia MD [address] [place] [address] documented as of this encounter Visit Diagnoses Not on filedocumented in this encounter Additional Health Concerns Assessment Noted Time PHQ-9 Depression Total Score: 0 02/05/20 24 1:47 PM EDT documented as of this encounter Care Teams Air[employer] Systems Superintendent Relationship Specialty Start Date End Date Lissy Gracia MD [address] [place] [address] PCP - General Family Medicine 06/07/21 documented as of this encounter
--- OUTSIDE RECORDS SUMMARY | 2024-11-25 10:22 | XMS_ITS | Encounter Summary ---
Author Organization [employer] Address [address] 7t [place] [address] Care Team Providers Care Repairer Handtools Name Role Phone Lissy Gracia MD Primary Care Provider [phone] Reinaldo Persaud RN Unavailable [phone] Encounter Details Date Type Department Care [...] 9:00 AM EST Office Visit [facility] ADULT D[facility] [address] [place] [address] Wendi Pedroza 2024 9:00 AM EST Office Visit [facility] [address] [place] [address] Wendi Pedroza 12/16/2024 3:45 PM EST Office Visit [facility] [address] [place] [address] Lissy Gracia MD [address] [place] [address] documented as of this encounter Visit Diagnoses Not on filedocumented in this encounter Additional Health Concerns Assessment Noted Time PHQ-9 Depression Total Score: 0 02/05/20 24 1:47 PM EDT documented as of this encounter Care Teams Repairer Handtools Relationship Specialty Start Date End Date Lissy Gracia MD [address] [place] [address] PCP - General Family Medicine 06/07/21 Reinaldo Persaud RN [address] [place] [address] Pickle CutterManager Company 11/05/24 documented as of this encounter
--- OUTSIDE RECORDS SUMMARY | 2024-11-25 10:22 | XMS_ITS | Encounter Summary ---
Author Organization [email or web address] Address [address] 7t [place] [address] Care Team Providers Care Decontaminator Name Role Phone Lissy Gracia MD Primary Care Provider Reinaldo Persaud RN Unavailable [phone] Reason for Visit * Reason Comments Acupuncture Encounter Details Date Type Department Care Team ([facility] st Contact Info) Description 11/12/2024 1:15 PM EST Office Visit [facility] [address] [place] [address] Lissy Gracia MD [address] [place] [address] Chronic migraine without aura without status migrainosus, [...] Description 11/28/2024 9:00 AM EST Office Visit [facility] ADULT D[facility] [address] [place] [address] Wendi Pedroza 2024 9:00 AM EST Office Visit [facility]ULT [facility] [address] [place] [address] Kasia, Wendi 12/16/2024 3:45 PM EST Office Visit [facility] [address] [place] [address] Lissy Gracia MD [address] [place] [address] documented as of this encounter Visit Diagnoses Diagnosis Chronic migraine without aura without status migrainosus, not intractable- Primary documented in this encounter Additional Health Concerns Assessment Noted Time PHQ-9 Depression Total Score: 0 02/05/20 24 1:47 PM EDT documented as of this encounter Care Teams Decontaminator Relationship Specialty Start Date End Date Lissy Gracia MD [address] [place] [address] PCP - General Family Medicine 06/07/21 Reinaldo Persaud, RN [address] [place] [address] Project PlannerCleaning Professional 11/05/24 documented as of this encounter
--- OUTSIDE RECORDS SUMMARY | 2024-11-25 10:22 | XMS_ITS | Encounter Summary ---
Author Organization [employer] Address [address] 7t [place] [address] Care Team Providers Care Capsule Inspector Name Role Phone Lissy Gracia MD Primary Care Provider [phone] Encounter Details Date Type Department Care Team ([facility] st Contact Info) Description 10/28/2024 11:00 AM EST Office Visit [facility] [address] [place] [address] [phone] Lissy Gracia MD [address] [place] [phone] Fibromyalgia (Primary Dx); Bleeding from the ear, [...] the past 12 months, has t he [employer], gas, oil or water company threatened to [...] Office Visit [facility] ADULT D[facility] [address] [place] [address] Wendi Pedroza 2024 9:00 AM EST Office Visit [facility] [address] [place] [address] Wendi Pedroza 12/16/2024 3:45 PM EST Office Visit [facility] [address] [place] [address] Lissy Gracia MD [address] [place] [address] documented as of this encounter Procedures Procedure Name Priority Date/Time Associated Diagnosis Comments CBC WITH AUTO DIFFERENTIAL Routine 10/28/2024 12:08 PM EST Bleeding from the ear, left PROTHROMBIN TIME-INR Routine 10/28/2024 12:08 PM EST Bleeding from the ear, left documented in this encounter Results * (ABNORMAL) CBC auto differential (10/28/2024 12:08 PM EST) White Blood Count 6.1 4.8 - 10.8 X10*3/uL [facility] Red Blood Count 4.85 4.20 - 5.50 X10*6/uL [facility] Hemoglobin 12.1 12.0 - 16.0 g/dl [facility] Hematocrit 37.4 37.0 - 47.0 % [facility] Mean Corpuscular Volume 77.1(L) 80.0 - 98.0 fL [facility] Mean Corpuscular Hemoglobin 24.9(L) 27.0 - 33.0 pg [facility] Mean Corpuscular HGB Conc 32.4 31.0 - 35.0 g/dl [facility] Red Cell Distribution Width 15.3 11.0 - 16.0 % [facility] Platelet Count 369 160 - 400 X10*3/uL [facility] Mean Platelet Volume 9.6 9.4 - 12.3 fL [facility] Neutrophils Percent Auto 56.2 45 - 73 % [facility] Imm Gran Pct Auto 0.3 0.0 - 0.4 % [facility] Lymphocytes Percent Auto 34.7 20 - 40 % [facility] Monocytes Percent Auto 7.1 2 - 11 % [facility] Eosinophils Percent Auto 1.2 0 - 4 % [facility] Basophils Percent Auto 0.5 0 - 2 % [facility] NRBC Pct Auto 0.0 0.0 - 0.2 /100WBC [facility] Neutrophils Absolute Auto 3.4 2.0 - 8.3 x10*3/uL [facility] Imm Gran Abs Auto 0.02 0.00 - 0.03 X10*3/uL [facility] Lymphocytes Absolute Auto 2.1 1.2 - 4.9 X10*3/uL [facility] Monocytes Absolute Auto 0.4 0.1 - 1.2 X10*3/uL [facility] Eosinophils Absolute Auto 0.1 0.0 - 0.4 X10*3/uL [facility] Basophils Absolute Auto 0.0 0.0 - 0.2 X10*3/uL [facility] NRBC Abs Auto 0.000 0.0 - 0.012 X10*3/uL [facility] Blood Venous blood specimen / Unknown 10/28/2024 12:08 PM EST 10/28/2024 1:08 PM EST us Lissy Gracia MD LAB BLOOD ORDERABLES Final Res ult [facility] [address] [place] [address] [phone] * (ABNORMAL) Prothrombin Time-INR (10/28/2024 12:08 PM EST) Prothrombin Time 10.8(L) 10.9 - 12.4 SEC [facility] INTERNATIONAL NORM RATIO 0.9 0.9 - 1.1 [facility] Comment:INTERNATIONAL NORMAL IZED RATIO (INR) [...] MD LAB BLOOD ORDERABLES Final Res ult [facility] [address] [place] [address] [phone] documented in this encounter Visit Diagnoses Diagnosis Fibromyalgia- Primary Unspecified myalgia and myositis Bleeding from the ear, left Chronic migraine without aura without status migrainosus, not intractable documented in this encounter Additional Health Concerns Assessment Noted Time PHQ-9 Depression Total Score: 0 02/05/20 24 1:47 PM EDT documented as of this encounter Care Teams Capsule Inspector Relationship Specialty Start Date End Date Lissy Gracia MD [address] [place] [address] PCP - General Family Medicine 06/07/21 documented as of this encounter
--- OUTSIDE RECORDS SUMMARY | 2024-11-25 10:22 | XMS_ITS | Encounter Summary ---
Author Organization [employer] Address [address] [place] [address] Care Team Providers Care Equipment Cleaner Name Role Phone Lissy Gracia MD Primary Care Provider [phone] Reinaldo Persaud RN Unavailable [phone] Reason for Visit * Reason Comments Care Coordination C3 [facility] Ammy bruce telephone call outreach Encounter Details Date Type Department Care Team (Latest Contact Info) Description 11/18/2024 Patient Outreach [facility] [address] [place] [address] Lissy Gracia MD [address] [place] [address] Care Coordination [facility]ieg[facility] telephone call outreach) Social [...] outbound call to patient introducing herself from [facility] CM Department, in regard to remind [...] 9:00 AM EST Office Visit [facility] ADULT [facility]ENT[facility] [address] [place] [address] Wendi Pedroza 2024 9:00 AM EST Office Visit [facility] D[facility] [address] [place] [address] Wendi Pedroza 12/16/2024 3:45 PM EST Office Visit [facility] [address] [place] [address] Lissy Gracia MD [address] [place] [address] documented as of this encounter Visit Diagnoses Not on filedocumented in this encounter Additional Health Concerns Assessment Noted Time PHQ-9 Depression Total Score: 0 02/05/20 24 1:47 PM EDT documented as of this encounter Care Teams Equipment Cleaner Relationship Specialty Start Date End Date Lissy Gracia MD [address] [place] [address] PCP - General Family Medicine 06/07/21 Reinaldo Persaud RN [address] [place] [phone] Hot Air Furnace Installer RepairerMarketing Content Manager 11/05/24 documented as of this encounter
--- OUTSIDE RECORDS SUMMARY | 2024-11-25 10:22 | XMS_ITS | Encounter Summary ---
Author Organization [employer] Address [address] 7t [place] [address] Care Team Providers Care Operations Tech Name Role Phone Lissy Gracia MD Primary Care Provider [phone] Reason for Visit * Reason Comments Acupuncture Encounter Details Date Type Department Care Team ([facility] Contact Info) Description 10/31/2024 9:30 AM EST Office Visit [facility] MEDICINE [address], [place] [phone] Irene Singletary MD [address] [place] [address] Chronic migraine without aura without status migrainosus, [...] the past 12 months, has t he [employer], gas, oil or water [employer] threatened to shut off services in your [...] Description 11/28/2024 9:00 AM EST Office Visit [facility] ADULT DENTAL [address] [place] [address] Wendi Pedroza 2024 9:00 AM EST Office Visit [facility] ADULT DENTAL [address] [place] [address] PedrozaLarissasa 12/16/2024 3:45 PM EST Office Visit [facility] MEDICINE [address] [place] [address] Lissy Gracia MD 230 [place] [address] documented as of this encounter Visit Diagnoses Diagnosis Chronic migraine without aura without status migrainosus, not intractable- Primary Anxiety Anxiety state, unspecified documented in this encounter Additional Health Concerns Assessment Noted Time PHQ-9 Depression Total Score: 0 02/05/20 24 1:47 PM EDT documented as of this encounter Care Teams Operations Tech Relationship Specialty Start Date End Date Lissy Gracia MD [address] [place] [address] PCP - General Family Medicine 06/07/21 documented as of this encounter
--- OUTSIDE RECORDS SUMMARY | 2024-11-25 10:22 | XMS_ITS | Encounter Summary ---
Author Organization [employer] Address [address] [facility] [address] [address] [address] 7t [place] [address] Care Team Providers Care Front Desk Auxiliary Name Role Phone Lissy Gracia MD Primary Care Provider [phone] Reinaldo Persaud RN Unavailable [phone] Encounter Details Date Type Department Care Team ([facility] st Contact Info) Description 11/07/2024 Patient Outreach [facility] MEDICINE [address] [place], [place] [phone] Lissy Gracia MD 230 [place] [address] Social History Tobacco Use Types Packs/Day Years [...] Property Management offices, CHW placed call to [place] [employer] Nurse for assistance, but was directed to where CHW LVM requesting call back. CHW then requested patient for verbal consent to speak with property management offices -[facility] [phone], DONTAE Hoff. CHW placed call to DONTAE Meza, introduced herself calling from [facility] requesting assistance with heating on pt [...] details. Pt provided with CHWs direct contact [phone], for future assistance. Patient verbalized understanding and agrees with plan. documented in this encounter Plan of Treatment Upcoming Encounters Date Type Department Care Team (Late st Contact Info) Description 11/28/2024 9:00 AM EST Office Visit [facility] ADULT DENTAL [address] [place] [address] Wendi Pedroza 2024 9:00 AM EST Office Visit [facility] ADULT DENTAL [address] [place] [address] Wendi Pedroza 12/16/2024 3:45 PM EST Office Visit [facility] [address] [place] [address] Lissy Gracia MD [address] [place] [address] documented as of this encounter Visit Diagnoses Not on filedocumented in this encounter Additional Health Concerns Assessment Noted Time PHQ-9 Depression Total Score: 0 02/05/20 24 1:47 PM EDT documented as of this encounter Care Teams Front Desk Auxiliary Relationship Specialty Start Date End Date Lissy Gracia MD 230 [place] [address] PCP - General Family Medicine 06/07/21 Reinaldo Persaud RN [address] [place] [address] Fire Extinguisher MechanicDietetic Tech 11/05/24 documented as of this encounter
--- OUTSIDE RECORDS SUMMARY | 2024-11-25 10:23 | XMS_ITS | Clinical Summary ---
Author Organization [facility] Address [address] [place] [address] Care Team Providers Care Technical Manager Chemical Plant Name Role Phone Unavailable Primary Care Provider [...] age to complete this topic [place]
--- OUTSIDE RECORDS SUMMARY | 2024-11-25 10:23 | XMS_ITS | Encounter Summary ---
Author Organization [employer] Address [address] 7t [place] [address] Care Team Providers Care Legal Support Analyst Name Role Phone Lissy Gracia MD Primary Care Provider [phone] Reinaldo Persaud RN Unavailable [phone] Reason for Visit * Reason Comments Med Refill Encounter Details Date Type Department Care Team ([facility] st Contact Info) Description 12/20/2023 Refill [facility]INE 230 [place], [place] [phone] Lissy Gracia MD [address] [place], [place] [phone] Chronic bilateral low back pain, unspecified whether [...] 11/28/2024 9:00 AM EST Office Visit [facility] ADULT DENTAL [address] [place] [address] Kasia Wendi 2024 9:00 AM EST Office Visit [facility] ADULT DENTAL [address] [place] [address] Kasia Wendi 12/16/2024 3:45 PM EST Office Visit [facility] MEDICINE [address] [place] [address] Lissy Gracia MD [address] [place] [address] documented as of this encounter Visit Diagnoses Diagnosis Chronic bilateral low back pain, unspecified whether sciatica present documented in this encounter Additional Health Concerns Assessment Noted Time PHQ-9 Depression Total Score: 0 06/09/20 23 3:37 PM EDT documented as of this encounter Care Teams Legal Support Analyst Relationship Specialty Start Date End Date Lissy Gracia MD [address] [place] [address] PCP - General Family Medicine 06/07/21 Reinaldo Persaud RN [address] [place] [address] Restaurant Maintenance TechnicianHigh School Drafting Teacher 11/05/24 documented as of this encounter
--- OUTSIDE RECORDS SUMMARY | 2024-11-25 10:23 | XMS_ITS | Clinical Summary ---
Author Organization [facility] Address [address] [place] [address] Care Team Providers Care Medical Genetics Director Name Role Phone Unavailable Primary Care Provider Unavailabl e Social History Tobacco Use Types Packs/Day Years Used Date Smoking Tobacco: Never Assessed Comments Unknown Sex and Gender Information Value Date Recorded Sex Assigned at Not on file Legal Sex Female 12:43 PM EST Gender Identity Not on file Sexual Orientation Not on file Plan of Treatment Health Maintenance Due Date Last Done Comments Breast Cancer Screening 1973 DTaP,Tdap,and Td Vaccines (1 - Tdap) 1980 Hepatitis B Vaccines (1 of 3 - 19+ 3-dose series) 1992 Cervical Cancer Screening: P ap Smear 1994 Pneumococcal Vaccine: 50+ Ye ars (1 of 1 - PCV) 2023 Zoster Vaccines (1 of 2) 2023 COVID-19 Vaccine ( - 2023-2 5 season) 2024 Influenza Vaccine [...] patient's age to complete this topic Meningococcal B Vacine Aged Out No lo nger eligible based on patient's age to complete [...]
--- OUTSIDE RECORDS SUMMARY | 2024-11-25 10:23 | XMS_ITS | Continuity of Care Document ---
Author Organization [facility] Address [address] [place] [address] Phone Care Team Providers Care Portable Track Crew Chief Name Role Phone Madatovian, DO DO, Harut [...] Test strips apply 1 not specified by [facility]non-drug; combo) route 3 times every day 1 [...] Diagnoses Date Provider Providers Copied on Encounter [facility], [address], [place], [place], [id number], [place] tel:[phone] [place] No Information 1 Madatovian, DO Harut. [address] [facility] [address], [address]. tel:[phone] [facility], [address], [place], [place], [id number], [place] tel:[phone] [address] No Information Dec-0 - 0 Madatovian, DO Harut. [address] [facility] [address], [address]. tel:[phone] OV 15 MIN M/F [facility], [address], [place], [place], [id number], [place] tel:[phone] [facility] results (chief complaint) Insulin dependent diabetes mellitusLong term (current) use of insulinHyperlip idemia, unspecified hyperlipidemia type Madatovian, DO Harut. [address], [address]. tel:[phone] [facility], [address], [place], [place], [id number], [place] tel:[phone] [facility] Blood work only (chief complaint) No Information No Information OV 20 MIN M/F [facility], [address], [place], [place], [id number], [place] tel:[phone] [facility] blood test (chief complaint) weight loss (chief complaint) Encntr for general adult medical exam w/o abnormal findingsWeight lossHistory of uterine fibroid Madatovian, DO Harut. [address] [facility] [address], [place], [address]. tel:[phone] Family History Family Member Type Diagnosis Age At Onset No Information Payers Payer name Insurance type Covered democrat ID Authoriza tion(s) No Information Social History [...] Order: Lab Order CBC (INC LUDES DIFF/PLT) ([id number]), Ordered on: Ordered Future Order: Lab Order COMPREHE NSIVE METABOLIC PANEL ([id number]), Ordered on: Ordered Future Order: Lab Order HEMOGLOB IN A1C (496), Ordered on: Ordered Future Order: Lab Order LIPID PA BECCA ([id number]), Ordered on: Ordered Future Order: Lab Order THYROID PANEL WITH TSH, 3RD GENERATION ([id number]), Ordered on: Ordered Future Order: Lab Order URINALYS IS, COMPLETE ([id number]), Ordered on: Ordered Future Order: Lab Order C-REACTI VE PROTEIN ([id number]), Ordered on: Ordered Future Order: Lab Order SED RATE BY MODIFIED WESTERGREN (409), Ordered on: Ordered Future Order: Lab Order [...]
--- OUTSIDE RECORDS SUMMARY | 2024-11-25 10:23 | XMS_ITS | Encounter Summary ---
Author Organization [employer] Address [address] 7t [place] [address] Care Team Providers Care Garbage Collector Name Role Phone Lissy Gracia MD Primary Care Provider [phone] Reinaldo Persaud RN Unavailable [phone] Reason for Visit * Reason Onset Date Comments Appointment Request 10/17/2023 Encounter Details Date Type Department Care Team ([facility] st Contact Info) Description 10/17/2023 Telephone [facility] [address] [place], [place] [phone] Lissy Garcia MD 230 [place], [place] [phone] Appointment Request Social History Tobacco Use Types [...] follow up . 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 documented in this encounter Plan of Treatment Upcoming Encounters Date Type Department Care Team (Late st Contact Info) Description 11/28/2024 9:00 AM EST Office Visit [facility] ADULT DENTAL [address] [place] [address] Wendi Pedroza 2024 9:00 AM EST Office Visit [facility] ADULT DENTAL [address] [place] [address] Wendi Pedroza 12/16/2024 3:45 PM EST Office Visit [facility] MED[facility]INE [address] [place] [address] Lissy Gracia MD [address] [place] [address] documented as of this encounter Visit Diagnoses Not on filedocumented in this encounter Additional Health Concerns Assessment Noted Time PHQ-9 Depression Total Score: 0 06/09/20 23 3:37 PM EDT documented as of this encounter Care Teams Garbage Collector Relationship Specialty Start Date End Date Lissy Gracia MD [address] [place] [address] PCP - General Family Medicine 06/07/21 Reinaldo Persaud RN [address] [place] [address] LUIS Boles [address] Blending Line AttendantFamily Medicine Chair 11/05/24 documented as of this encounter
--- OUTSIDE RECORDS SUMMARY | 2024-11-25 10:23 | XMS_ITS | Encounter Summary ---
Author Organization [employer] Address [address] 7t [place] [address] Care Team Providers Care Jeep Mechanic Name Role Phone Lissy Gracia MD Primary Care Provider [phone] Encounter Details Date Type Department Care Team [...] is your housing situation today? I have pirscila kruse 08/10/[address] you [...] 9:00 AM EST Office Visit [facility] ADULT DENTAL [address] [place] [address] Wendi Pedroza 2024 9:00 AM EST Office Visit [facility] ADULT DENTAL [address] [place] [address] Wendi Pedroza 12/16/2024 3:45 PM EST Office Visit [facility] MEDICINE [address] [place] [address] Lissy Gracia MD [address] [place] [address] documented as of this encounter Visit Diagnoses Not on filedocumented in this encounter Additional Health Concerns Assessment Noted Time PHQ-9 Depression Total Score: 0 02/05/20 24 1:47 PM EDT documented as of this encounter Care Teams Jeep Mechanic Relationship Specialty Start Date End Date Lissy Gracia MD [address] [place] [address] PCP - General Family Medicine 06/07/21 documented as of this encounter
--- OUTSIDE RECORDS SUMMARY | 2024-11-25 10:23 | XMS_ITS | Encounter Summary ---
Author Organization [employer] Address [address] 7t [place] [address] Care Team Providers Care Computer Support Specialist Instructor Name Role Phone Lissy Gracia MD Primary Care Provider [phone] Reinaldo Persaud RN Unavailable [phone] Reason for Visit * Reason Comments Med Refill Encounter Details Date Type Department Care Team ([facility] st Contact Info) Description 11/19/2024 Refill [facility] [address] [place] [address] Lissy Gracia MD 230 [place] [address] Social History Tobacco Use Types Packs/Day Years [...] the past 12 months, has t he [employer], gas, oil or water company threatened to [...] Description 11/28/2024 9:00 AM EST Office Visit [facility] ADULT DENTAL [address] [place] [address] Wendi Pedroza 2024 9:00 AM EST Office Visit [facility] ADULT DENTAL [address] [place] [address] Wendi Pedroza 12/16/2024 3:45 PM EST Office Visit [facility] MED[facility] [address] [place] [address] Lissy Gracia MD [address] [place] [address] documented as of this encounter Visit Diagnoses Not on filedocumented in this encounter Additional Health Concerns Assessment Noted Time PHQ-9 Depression Total Score: 0 02/05/20 24 1:47 PM EDT documented as of this encounter Care Teams Computer Support Specialist Instructor Relationship Specialty Start Date End Date Lissy Gracia MD [address] [place] [address] PCP - General Family Medicine 06/07/21 Reinaldo Persaud RN [address] [place] [address] Transportation InspectorHog Grader 11/05/24 documented as of this encounter
--- OUTSIDE RECORDS SUMMARY | 2024-11-25 10:23 | XMS_ITS | Encounter Summary ---
Author Organization [employer] Address [address] [facility] [facility] [address] 7t [place] [address] Care Team Providers Care Diamond Sorter Name Role Phone Lissy Gracia MD Primary Care Provider [phone] Reinaldo Persaud RN Unavailable [phone] Encounter Details Date Type Department Care Team ([facility] st Contact Info) Description 11/19/2024 1:15 PM EST Office Visit [facility] MEDICINE 230 [place] [address] Lissy Gracia MD 230 [place] [address] Fibromyalgia (Primary Dx); Chronic migraine without aura [...] the past 12 months, has t he [employer], gas, oil or water [employer] threatened to shut off services in your [...] Description 11/28/2024 9:00 AM EST Office Visit [facility] ADULT DENTAL [address] [place] [address] Larissa Pedrozasa 2024 9:00 AM EST Office Visit [facility] ADULT DENTAL [address] [place] [address] Kasia Wendi 12/16/2024 3:45 PM EST Office Visit [facility] [address] [place] [address] Lissy Gracia MD [address] [place] [address] documented as of this encounter Visit Diagnoses Diagnosis Fibromyalgia- Primary Unspecified myalgia and myositis Chronic migraine without aura without status migrainosus, not intractable documented in this encounter Additional Health Concerns Assessment Noted Time PHQ-9 Depression Total Score: 0 02/05/20 24 1:47 PM EDT documented as of this encounter Care Teams Diamond Sorter Relationship Specialty Start Date End Date Lissy Gracia MD [address] [place] [address] PCP - General Family Medicine 06/07/21 Reinaldo Persaud RN [address] [place] [address] Triage ClinicianAttending Ambulatory Care 11/05/24 documented as of this encounter
--- OUTSIDE RECORDS SUMMARY | 2024-11-25 10:23 | XMS_ITS | Encounter Summary ---
Author Organization [employer] Address [address] 7t [place] [address] Care Team Providers Care Esthetician Spa Name Role Phone Lissy Gracia MD Primary Care Provider [phone] Reason for Visit * Reason Comments Acupuncture Encounter Details Date Type Department Care Team ([facility] Contact Info) Description 10/28/2024 9:00 AM EST Office Visit [facility] MED[facility]INE [address] [place] [address] Irene Singletary MD [address] [place] [address] Chronic migraine without aura without status migrainosus, [...] the past 12 months, has t he [employer], gas, oil or water [employer] threatened to shut off services in your [...] Office Visit [facility] ADULT DENTAL [address] [place] [address] Wendi Pedroza 2024 9:00 AM EST Office Visit [facility] ADULT DENTAL [address] [place] [address] PedrozaLarissasa 12/16/2024 3:45 PM EST Office Visit [facility] MED[facility] [address] [place] [address] Lissy Garcia MD 230 [place] [address] documented as of this encounter Visit Diagnoses Diagnosis Chronic migraine without aura without status migrainosus, not intractable- Primary Anxiety Anxiety state, unspecified documented in this encounter Additional Health Concerns Assessment Noted Time PHQ-9 Depression Total Score: 0 02/05/20 24 1:47 PM EDT documented as of this encounter Care Teams Esthetician Spa Relationship Specialty Start Date End Date Lissy Gracia MD [address] [place] [address] PCP - General Family Medicine 06/07/21 documented as of this encounter
--- OUTSIDE RECORDS SUMMARY | 2024-11-25 10:23 | XMS_ITS | Encounter Summary ---
Author Organization [facility] Address [address] 7t [place] [address] Care Team Providers Care Knitting Machine Operator Name Role Phone Lissy Gracia MD Primary Care Provider [phone] Reinaldo Persaud RN Unavailable [phone] Reason for Visit * Reason Comments Transition Of Care (Tcm) Encounter Details Date Type Department Care Team ([facility] st Contact Info) Description 11/19/2024 Patient Outreach [facility] MEDICINE [address] [place] [address] Lissy Gracia MD [address] [place] [address] Transition Of Care (Tcm) Social History Tobacco [...] Date of Discharge 11/18/24 (9:17 pm) Facility [facility] Diagnosis N/A Disposition Discharged Home * Anitha Reed RN - 11/19/2024 10:33 AM EST Transition of Care Note Irene is going through a recent transition of care. Hospital Discharges and Admission for [facility] Type of Visit: Emergency Department Date of Admission/Visit: 11/18/24 Date of Discharge: 11/18/24 Facility: [facility] Diagnosis: N/A Disposition: Left Without Being Seen Follow-Up Actions Follow-Up Needed: None/self-monitoring Follow-Up Outcome: Spoke to Patient Initial Contact Date: 11/19/24 The full discharge summary does not exist d/t patient LWBS. Recent Visits Date Type Provider Dept 11/18/24 Office Visit Irene Singletary MD [facility] Medicine 11/14/24 Office Visit Candice Moreland, DO [facility] Walk-In Center 11/12/24 Office Visit Lissy Gracia MD [facility] Medicine 11/11/24 Office Visit Irene Singletary MD [facility] Medicine 11/11/24 Office Visit Lissy Gracia MD [facility] Medicine 11/07/24 Office Visit Candice Moreland, DO [facility] Walk-In Center 11/07/24 Office Visit Irene Singletary MD [facility] Medicine 11/05/24 Office Visit Lissy Gracia MD [facility] Medicine 10/31/24 Office Visit Irene Singletary MD [facility] Medicine 10/29/24 Office Visit Rosana Cotton MD [facility] Walk-In Center Showing recent visits within past 540 days with a meds authorizing provider and meeting all other requirements Future Appointments Date Type Provider Dept 12/16/24 Appointment Lissy Gracia MD [facility] Medicine Showing future appointments within next 150 days with a meds authorizing provider and meeting all other requirements TC placed to patient [phone] to status check. Patient reports she went to the ED d/t an anxiety attack. Patient reports she was at the ER for >5 hours and was not called back therefore she left. Patient confirms she has a psychiatrist (Selina Campbell) and a therapist (Aissatou) at [facility].Patient reports she called this morning and informed them of her anxiety attack. Patient is NOT SOB during call and denies any chest pain. Patient advised to come to [facility] or ED if she develops chest pain or SOB. Patient verbalized understanding. Patient to f/u PRN. documented in this encounter Plan of Treatment Upcoming Encounters Date Type Department Care Team (Late st Contact Info) Description 11/28/2024 9:00 AM EST Office Visit [facility] ADULT DENTAL [address] [place] [address] Wendi Pedroza 2024 9:00 AM EST Office Visit [facility] ADULT DENTAL [address] [place] [address] Wendi Pedroza 12/16/2024 3:45 PM EST Office Visit [facility] MEDICINE [address] [place] [address] Lissy Gracia MD [address] [place] [address] documented as of this encounter Visit Diagnoses Not on filedocumented in this encounter Additional Health Concerns Assessment Noted Time PHQ-9 Depression Total Score: 0 02/05/20 24 1:47 PM EDT documented as of this encounter Care Teams Knitting Machine Operator Relationship Specialty Start Date End Date Lissy Gracia MD [address] [place] [address] PCP - General Family Medicine 06/07/21 Reinaldo Persaud RN [address] [place] [address] Bobbin SorterCellular Tower Climber 11/05/24 documented as of this encounter
[2024-11-25 11:15] LABS: Retic HGB Equivalent 27.9 pg (30.0-35.0); Reticulocyte Percent 1.4 % (0.5-1.8); Reticulocytes Absolute 0.072 X10*6/uL (0.026-0.095)
[2024-11-25 11:45] LABS: Ferritin 22 ng/mL (10-250)
[2024-11-28 01:28] LABS: TS Negative Control Passed; TS Panel A 0; TS Panel B 0; TS Positive Control Passed; TSpotTB Negative (Negative)
== END 2024-11-25 09:37 | disposition home or self-care (01) ==
LOC: HO.HHCL 09:36
PROVIDERS: Visit Provider General Practice
DX: Z11.1 Encounter for screening for respiratory tuberculosis (principal); D69.9 Hemorrhagic condition, unspecified; J45.909 Unspecified asthma, uncomplicated
CPT/HCPCS: 36415; 82728; 85045; 86481; 99212

== ENCOUNTER 2024-11-25 12:53 | Outpatient (AMB) | payer MEDICAID, SELFPAY ==
--- NOTE | 2024-11-24 13:02 | MHC.OFFVIS ---
Vital Signs 11/25/24 12:55 Height 5 ft 6 in Weight 166 lb 7.184 oz BMI 26.9 BP 136/82 Blood Pressure Location Rt brachial Position Sitting Pulse 107 H Pulse Source Pulse Oximeter Pulse Oximetry (%) 97 Oxygen Delivery Method Room Air Intake Visit Reasons: asthma Clock Smith Required: Yes Clock Smith Name: Gómez Accompanied by: Self / Same As Patient Allergies Seasonal Allergies Allergy (Mild, Verified 11/25/24 13:01) Runny Nose Medication List - Last Reconciled 11/25/24 by Leanne Newton LPN albuterol sulfate 90 mcg/actuation 2 inhalations inhalation Q4-6H PRN albuterol sulfate 90 mcg/actuation 1 inh inhalation QID PRN albuterol sulfate 90 mcg/actuation (ProAir HFA) 2 puffs inhalation Q4-6H PRN albuterol sulfate mg inhalation Q4H PRN alum-mag hydroxide-simeth 400-400-40 mg/5 mL (Mylanta Maximum Strength) 5 mL PO QID PRN aixzono-naicxmsthzbfc-thdxfmjr 250-250-65 mg (Excedrin Migraine) 2 tabs PO Q6H PRN atorvastatin 20 mg PO DAILY benzonatate 200 mg PO TID PRN bisacodyl (Dulcolax (bisacodyl)) 10 mg (2 x 5 mg) PO ONCE 1 day blood sugar diagnostic (FreeStyle Lite Strips) 1 strip miscellaneous TID canagliflozin (Invokana) 300 mg PO QAM cetirizine (Zyrtec) 10 mg PO DAILY clotrimazole 1% (Antifungal (clotrimazole)) 1 appl topical TID cyclobenzaprine 10 mg PO TID cyclobenzaprine 5 mg PO BEDTIME PRN diphenhydramine HCl 50 mg (2 x 25 mg) PO Q6H PRN docusate sodium 100 mg PO BEDTIME doxycycline hyclate 100 mg PO BID 10 days dulaglutide (Trulicity) 1.5 mg (0.5 mL) subcut QWEEK famotidine 40 mg PO BEDTIME fluconazole 150 mg PO Q3D 2 doses fluticasone furoate-vilanterol 200-25 mcg/dose (Breo Ellipta) 1 inh inhalation DAILY gabapentin 300 mg PO TID ketorolac 10 mg PO Q8H ketorolac 10 mg PO TID PRN 5 days lancets (TRUEplus Lancets) 1 gauge miscellaneous TID lisinopril 5 mg PO DAILY medroxyprogesterone (Depo-Provera) 150 mg IM Q12W metformin 500 mg PO BID metoclopramide HCl (Reglan) 5 mg PO DAILY PRN metoclopramide HCl (Reglan) 10 mg PO Q6H PRN metronidazole 0.75%(37.5mg/5gram) 1 appful vaginal BEDTIME 5 days miconazole nitrate 2% (Miconazole-7) 1 appful vaginal BEDTIME 7 days mometasone 100 mcg/actuation (Asmanex HFA) 1 puff inhalation BID naproxen (Naprosyn) 500 mg PO BID nystatin 1 mL PO DAILY pantoprazole 40 mg PO DAILY polyethylene glycol 3350 (Miralax) 238 grams PO ONCE prednisone 20 mg PO DAILY 12 days prednisone 20 mg PO BID prednisone 40 mg (2 x 20 mg) PO DAILY 5 days sennosides (Natural Senna Laxative) 17.2 mg (2 x 8.6 mg) PO BEDTIME sertraline (Zoloft) 50 mg PO DAILY HPI HPI asthma: Details: Irene is a pleasant 48 year old female, never smoker, with underlying asthma, HTN, DMII, GERD, allergic rhinitis and Depression. At the last visit, she was switched from Asmanex to Breo as she reported worsening asthma control over the last four months, requiring multiple ED visits. She also notes more persistent reflux and has an upcoming appt with GI in January. She was recently evaluation for increased dyspnea at an urgent care 11/21 placed on prednisone with good effect. Today she presents to review PFT and RAST. [facility] Medical History Dysplasia of cervix, low grade (DEE 1) Plantar fasciitis Chronic migraine Iron deficiency Depression Hyperlipidemia LDL goal <100 Essential hypertension Type 2 diabetes mellitus with hyperglycemia Surgical History Hx of tubal ligation Family History Father No problems noted. Mother HTN (hypertension) Maternal Grandfather HTN (hypertension) Myocardial infarct Maternal Grandmother Diabetes Breast cancer Maternal Aunt Diabetes Social History Household Members: Children Unable to assess alcohol history related to: Unknown Alcohol intake: former Patient Tobacco Use Status: Never used Tobacco Advance Directives Date on File: 11/23/23 Female Reproductive History Menstrual Age of Menarche: 10 Review of Systems Const Denies chills, Denies excessive sweating, Denies fever(s), Denies headache(s) and Denies night sweats Eyes Denies dry eyes, Denies irritation and Denies itchy eyes ENT Reports Normal hearing present, Denies headache(s), Denies nasal congestion, Denies nasal discharge and Denies sore throat Card Denies chest pain at rest, Denies chest pain with activity, Denies claudication and Denies paroxysmal nocturnal dyspnea Resp Denies chest congestion, Denies excessive phlegm production, Denies pain on inspiration, Denies pain with cough and Denies stridor Musc Denies myalgias Neuro Reports Normal hearing present and Denies headache(s) Endo Denies excessive sweating Bear/Lymph Denies lymphadenopathy Aller/Immun Denies itchy eyes and Denies seasonal rhinorrhea Physical Exam Vital Signs: Last Vital Signs Pulse 107 H 11/25/24 12:55 BP 136/82 11/25/24 12:55 Pulse Ox 97 11/25/24 12:55 Oxygen Delivery Method Room Air 11/25/24 12:55 BMI result Body Mass Index 26.9 Const General: cooperative, healthy appearing, comfortable, no acute distress, well developed and alert Orientation/consciousness: patient oriented x3 Limitations: no limitations HEENT Head: Yes normal to inspection, Yes normocephalic and Yes atraumatic Ears: hearing grossly normal bilaterally and external ears normal Eyes General: appearance normal, both eyes and all related structures Eyelids: Yes eyelids normal Sclerae: sclerae normal EOM: EOMs intact bilaterally Neck Neck: Yes normal visual inspection and Yes no lymphadenopathy Lymphatic: no lymphadenopathy noted Chest Chest palpation & inspection: normal inspection of the chest Resp Effort & Inspection: normal respiratory effort, able to speak in complete sentences, no audible wheezes, no cough, no stridor, not tachypneic, no tripod positioning and no use of accessory muscles Auscultation: clear to auscultation bilaterally Cardio Jugular venous distension: no JVD Rate: regular rate Rhythm: regular rhythm Skin Other: warm, dry General skin exam: no rashes or lesions noted Neuro General: patient oriented x3 Cranial nerves: Yes Normal hearing present Cognition (Neuro): normal cognition Gait exam (Neuro): Normal gait present Extrem General: Yes normal to inspection, Yes capillary refill normal, Yes no clubbing, cyanosis or edema and Yes no pedal edema Psych Appearance: grossly normal and well kempt Speech and movement: Normal speech and movement present and Clear speech present Affect: normal affect Attitude: cooperative Thought process: Normal thought process present Thought content: Normal thought content present Insight: Good insight present (Psych) Judgement: Good judgement present (Psych) Assessment & Plan Assessment & Plan (1) Asthma: Code(s): J45.909 - Unspecified asthma, uncomplicated Category: Medical Plan Reviewed PFT which revealed mild restrictive ventilatory defect with no bronchodilator response. Decreased expiratory reserve volume suggests extrathoracic restriction likely secondary to abdominal obesity. DLCO normal. At this time she reports moderate control of respiratory symptoms using Breo and albuterol MDI/neb, adivsed to continue. Prior CXR and RAST unremarkable. There may be a component of reflux contributing to symptoms and has an upcoming appt with GI, encouraged to keep this appt. All questions were answered and patient is in agreement of plan. Will follow up in 3 months or sooner if needed. Coding Level of Care Code Est Pt Level 4 (27810) Diagnoses Asthma J45.909
[2024-11-25 12:55] VITALS: BP 136/82; PULSE 107; O2SAT 97; BMI 26.9
== END 2024-11-25 14:14 | disposition home or self-care (01) ==
PROVIDERS: PCP General Practice; Visit Provider Nurse Practitioner Family
DX: J45.909 Unspecified asthma, uncomplicated (principal)
CPT/HCPCS: 99214

== ENCOUNTER 2024-12-09 09:33 | Outpatient (AMB) | payer MEDICAID, SELFPAY ==
--- NOTE | 2024-12-09 10:03 | A.OFFVIS_ITS ---
Vital Signs 12/09/24 10:04 Height 5 ft 6 in Weight 171 lb 15.369 oz BMI 27.8 BP 120/84 Blood Pressure Location Lt brachial Position Sitting Pulse 80 Intake Visit Reasons: r/s 02/13/24 handkerchief folder/f.ney/chest pain Intake Note: New patient center of chest pain maybe 1-2 a week at rest Machine Maintenance Technician Required: Yes Machine Maintenance Technician Services: Machine Maintenance Technician Present Machine Maintenance Technician Name: tan Mejia Allergies Seasonal Allergies Allergy (Mild, Verified 11/25/24 13:01) Runny Nose Medication List - Last Reconciled 12/09/24 by Jordy Mcfarland MD albuterol sulfate 90 mcg/actuation 2 inhalations inhalation Q4-6H PRN albuterol sulfate 90 mcg/actuation 1 inh inhalation QID PRN albuterol sulfate 90 mcg/actuation (ProAir HFA) 2 puffs inhalation Q4-6H PRN albuterol sulfate mg inhalation Q4H PRN alum-mag hydroxide-simeth 400-400-40 mg/5 mL (Mylanta Maximum Strength) 5 mL PO QID PRN gstxlba-gbyixeugleekn-lgkdcxcs 250-250-65 mg (Excedrin Migraine) 2 tabs PO Q6H PRN atorvastatin 20 mg PO DAILY benzonatate 200 mg PO TID PRN bisacodyl (Dulcolax (bisacodyl)) 10 mg (2 x 5 mg) PO ONCE 1 day blood sugar diagnostic (FreeStyle Lite Strips) 1 strip miscellaneous TID canagliflozin (Invokana) 300 mg PO QAM cetirizine (Zyrtec) 10 mg PO DAILY clotrimazole 1% (Antifungal (clotrimazole)) 1 appl topical TID cyclobenzaprine 10 mg PO TID cyclobenzaprine 5 mg PO BEDTIME PRN diphenhydramine HCl 50 mg (2 x 25 mg) PO Q6H PRN docusate sodium 100 mg PO BEDTIME doxycycline hyclate 100 mg PO BID 10 days dulaglutide (Trulicity) 1.5 mg (0.5 mL) subcut QWEEK famotidine 40 mg PO BEDTIME fluconazole 150 mg PO Q3D 2 doses fluticasone furoate-vilanterol 200-25 mcg/dose (Breo Ellipta) 1 inh inhalation DAILY gabapentin 300 mg PO TID ketorolac 10 mg PO Q8H ketorolac 10 mg PO TID PRN 5 days lancets (TRUEplus Lancets) 1 gauge miscellaneous TID lisinopril 5 mg PO DAILY medroxyprogesterone (Depo-Provera) 150 mg IM Q12W metformin 500 mg PO BID metoclopramide HCl (Reglan) 5 mg PO DAILY PRN metoclopramide HCl (Reglan) 10 mg PO Q6H PRN metronidazole 0.75%(37.5mg/5gram) 1 appful vaginal BEDTIME 5 days mometasone 100 mcg/actuation (Asmanex HFA) 1 puff inhalation BID naproxen (Naprosyn) 500 mg PO BID nystatin 1 mL PO DAILY pantoprazole 40 mg PO DAILY polyethylene glycol 3350 (Miralax) 238 grams PO ONCE sennosides (Natural Senna Laxative) 17.2 mg (2 x 8.6 mg) PO BEDTIME sertraline (Zoloft) 50 mg PO DAILY HPI Comments Details: Thank you for referring Irene in cardiology consultation today for chest pain syndrome. She is a 48-year-old female with longstanding history of diabetes for about 6 years, hyperlipidemia currently on treatment. She said most recently her diabetes was told to be under good control with hemoglobin A1c around 7% which is much better compared to in the past at 13%. She was also on statin therapy with well optimized LDL at 64 mg/dL. Over the last few months she has been getting intermittent episodes of retrosternal chest pain. History was obtained with help of metal furniture polisher. However these tests pain syndromes are mostly at rest happening at nighttime. Started with after swallowing she will get this chest pain syndrome. Now she gets chest pain syndrome mostly at rest with last for about up to 20 minutes. Symptoms are quite distressing. Feels like pressure sensation in her chest area. She was no associated symptoms of shortness of breath. No nausea, vomiting, diaphoresis. No prolonged palpitation irregular heartbeat. She has not had any exertional chest pain. Denies any orthopnea, PND, leg edema. [facility] Medical History Dysplasia of cervix, low grade (DEE 1) Plantar fasciitis Chronic migraine Iron deficiency Depression Hyperlipidemia LDL goal <100 Essential hypertension Type 2 diabetes mellitus with hyperglycemia Surgical History Hx of tubal ligation Family History Father No problems noted. Mother HTN (hypertension) Maternal Grandfather HTN (hypertension) Myocardial infarct Maternal Grandmother Diabetes Breast cancer Maternal Aunt Diabetes Social History Household Members: Children Unable to assess alcohol history related to: Unknown Alcohol intake: former Patient Tobacco Use Status: Never used Tobacco Advance Directives Date on File: 11/23/23 Female Reproductive History Menstrual Age of Menarche: 10 Review of Systems Const Denies chills, Denies daytime sleepiness, Denies fatigue, Denies fever(s), Denies frequent falls, Denies poor appetite, Denies snoring, Denies stops breathing during sleep, Denies weakness, Denies weight gain and Denies weight loss Eyes Denies loss of vision ENT Denies dizziness and Denies hearing loss Card Reports chest pain, Denies claudication, Denies leg edema, Denies lightheadedness, Denies palpitations, Denies dyspnea, Denies dyspnea on exertion and Denies orthopnea Resp Denies cough, Denies excessive phlegm production, Denies dyspnea, Denies dyspnea on exertion, Denies snoring and Denies wheezing GI Denies abdominal pain, Denies hematochezia, Denies change in bowel habits, Denies nausea and Denies vomiting Denies urinary frequency and Denies dysuria Musc Denies arthralgias, Denies muscle weakness, Denies numbness and Denies other (frequent falls) Skin/Breast Denies nail changes and Denies rash Neuro Denies Abnormal speech present, Denies dizziness, Denies frequent falls, Denies loss of vision, Denies memory loss, Denies numbness and Denies weakness Psych Denies depression and Denies memory loss Endo Denies fatigue and Denies palpitations Bear/Lymph Reports easy bruising and Reports other (anemia) Aller/Immun Denies wheezing Physical Exam Vital Signs: Last Vital Signs Pulse 80 12/09/24 10:04 BP 120/84 12/09/24 10:04 BMI result Body Mass Index 27.8 Const General: cooperative, comfortable, no acute distress, well developed, alert, awake and Physically active Nutritional Appearance: overweight Orientation/consciousness: patient oriented x3 Limitations: no limitations HEENT Head: Yes normocephalic and Yes atraumatic Neck Neck: Yes trachea midline, Yes supple and Yes no JVD Resp Effort & Inspection: normal respiratory effort Auscultation: clear to auscultation bilaterally Cardio Jugular venous distension: no JVD Palpation: normal PMI Rate: regular rate Rhythm: regular rhythm Heart sounds: S1 normal heart sound present, S2 normal heart sound present, no click, no gallops, no murmurs and no rubs GI Auscultation: normal bowel sounds Skin General skin exam: no rashes or lesions noted Neuro General: patient oriented x3 and no focal motor deficits Speech: No Abnormal speech present Extrem General: Yes no clubbing, cyanosis or edema Psych Appearance: grossly normal Office Procedures EKG Details: EKG shows normal sinus rhythm normal EKG 27929-[id number], Complete Assessment & Plan Assessment & Plan (1) Atypical chest pain: Code(s): R07.89 - Other chest pain Category: Medical Plan: Atypical chest pain syndrome this middle-aged woman with multiple risk factors including longstanding diabetes now which is under better control, hyperlipidemia, family history. Likelihood of obstructive coronary artery dis ease low although given her multiple risk factors will pursue testing. Will suggest a exercise stress echocardiogram to assess for myocardial ischemia. Also suggest echocardiogram to rule out any other possible etiology for chest pain syndrome including LVH, cardiomyopathy, pulmonary hypertension. These tests will be scheduled in near future. Further treatment based on the findings. Applauded her aggressive treatment of diabetes. Continue to aggressively manage her diabetes goal hemoglobin A1c less than 7%. LDL is well optimized. Advised to pursue lifestyle modification with continued exercise and weight loss program. Will follow up in the clinic in 6 weeks time after testing. Thank you for allowing me to partake in his care Coding Level of Care Code Tele New Pt Level 4 (62212) Complex EM visit Add On G2211 Diagnoses Atypical chest pain R07.89 CPT Codes EKG - CPT: 65194-[id number], Complete ([id number])
[2024-12-09 10:04] VITALS: BP 120/84; PULSE 80; BMI 27.8
--- OUTSIDE RECORDS SUMMARY | 2024-12-09 10:19 | XMS_ITS | Encounter Summary ---
Author Organization [employer] Address [address] [place] [address] Care Team Providers Care Concrete Mixer Operator Name Role Phone Lissy Gracia MD Primary Care Provider [phone] Reinaldo Persaud RN Unavailable [phone] Reason for Visit * Reason Onset Date Comments Nurse Triage 05/22/2023 Encounter Details Date Type Department Care Team ([facility] st Contact Info) Description 05/22/2023 Telephone [facility] MEDIC[facility] [address] [place] [address] Lissy Gracia MD [address] [place], [place] [phone] Nurse Triage Social History Tobacco Use Types [...] to report body pain . Patient speaks Maltese. Advised triage nurse will call patient back. documented in this encounter Plan of Treatment Upcoming Encounters Date Type Department Care Team (Late st Contact Info) Description 2024 9:00 AM EST Office Visit [facility] ADULT DENTAL [address] [place] [address] Wendi Pedroza 12/16/2024 11:00 AM EST Office Visit [facility] [address] [place] [address] 12/16/2024 3:45 PM EST Office Visit [address] [address] Lissy Gracia MD [address] [place] [address] documented as of this encounter Visit Diagnoses Not on filedocumented in this encounter Care Teams Concrete Mixer Operator Relationship Specialty Start Date End Date Lissy Gracia MD [address] [place] [phone] PCP - General Family Medicine 06/07/21 Reinaldo Persaud RN [address] [place] [phone] AssessorCredit Collections Specialist 11/05/24 documented as of this encounter
--- OUTSIDE RECORDS SUMMARY | 2024-12-09 10:19 | XMS_ITS | Encounter Summary ---
Author Organization [employer] [facility] Address [address] [place] [address] Care Team Providers Care Frame Assembler Name Role Phone Lissy Gracia MD Primary Care Provider [phone] Reinaldo Persaud RN Unavailable [phone] Reason for Visit * Reason Comments Med Refill Encounter Details Date Type Department Care Team (Late st Contact Info) Description 05/12/2023 Refill [facility] MED[facility] [address] [place] [phone] Lissy Gracia MD [address] [place] [phone] Social History Tobacco Use Types Packs/Day Years [...] Description 2024 9:00 AM EST Office Visit [facility] ADULT DENTAL [address] [place] [phone] Wendi Pedroza 12/16/2024 11:00 AM EST Office Visit [address] [address] 12/16/2024 3:45 PM EST Office Visit [address] [address] Lissy Gracia MD [address] [place] [address] documented as of this encounter Visit Diagnoses Not on filedocumented in this encounter Care Teams Frame Assembler Relationship Specialty Start Date End Date Lissy Gracia MD [address] [place] [phone] PCP - General Family Medicine 06/07/21 Reinaldo Persaud RN [address] [place] [address] InstallerHand Former 11/05/24 documented as of this encounter
--- OUTSIDE RECORDS SUMMARY | 2024-12-09 10:19 | XMS_ITS | Encounter Summary ---
Author Organization [employer] Address [address] [facility] 7t [place] [address] Care Team Providers Care Crown Pouncer Name Role Phone Lissy Gracia MD Primary Care Provider [phone] Reinaldo Persaud RN Unavailable [phone] Reason for Visit * Reason Comments Med Refill Encounter Details Date Type Department Care Team (Late st Contact Info) Description 06/13/2023 Refill [facility] [address] [place] [address] Chari Murray FNP [address] [place] [address] Dept [place] [address] Mild persistent asthma without complication Social History [...] Description 2024 9:00 AM EST Office Visit [facility] ADULT DENTAL [address] [place] [address] Wendi Pedroza 12/16/2024 11:00 AM EST Office Visit [facility] MEDICINE [address] [place] [address] 12/16/2024 3:45 PM EST Office Visit [address] [address] Lissy Gracia MD [address] [place] [address] documented as of this encounter Visit Diagnoses Diagnosis Mild persistent asthma without complication documented in this encounter Additional Health Concerns Assessment Noted Time PHQ-9 Depression Total Score: 0 06/09/20 3:37 PM EDT documented as of this encounter Care Teams Crown Pouncer Relationship Specialty Start Date End Date Lissy Gracia MD [address] [place] [phone] PCP - General Family Medicine 06/07/21 Reinaldo Persaud RN [address] [place] [address] Wool DyerStarting Sheet Tank Operator 11/05/24 documented as of this encounter
--- OUTSIDE RECORDS SUMMARY | 2024-12-09 10:20 | XMS_ITS | Encounter Summary ---
Author Organization [employer] [facility] Address [address] [place] [address] Care Team Providers Care Figure Refinisher And Repairer Name Role Phone Lissy Gracia MD Primary Care Provider [phone] Reinaldo Persaud RN Unavailable [phone] Encounter Details Date Type Department Care Team (Latest Contact Info) Description 04/10/2019 Abstract [facility] CONVERSIONS Dental, Provider, DDS Social History [...] Upcoming Encounters Date Type Department Care Team ( st Contact Info) Description 2024 9:00 AM EST Office Visit [facility] ADULT DENTAL [address] [place] [address] Wendi Pedroza 12/16/2024 11:00 AM EST Office Visit [facility] MED[facility]INE [address] [place] [address] 12/16/2024 3:45 PM EST Office Visit [facility] [address] [place] [phone] Lissy Gracia MD [address] [place] [address] documented as of this encounter Visit Diagnoses Not on filedocumented in this encounter Care Teams Figure Refinisher And Repairer Relationship Specialty Start Date End Date Lissy Gracia MD [address] [place] [address] PCP - General Family Medicine 06/07/21 Reinaldo Persaud RN [address] [place] [address] Iron CarrierOyster Preparer 11/05/24 documented as of this encounter
--- OUTSIDE RECORDS SUMMARY | 2024-12-09 10:20 | XMS_ITS | Encounter Summary ---
Author Organization [employer] Address [address] [place] [address] Care Team Providers Care Wool Buyer Name Role Phone Lissy Gracia MD Primary Care Provider [phone] Reinaldo Persaud RN Unavailable [phone] Encounter Details Date Type Department Care Team ([facility] st Contact Info) Description 12/04/2024 9:15 AM EST Office Visit [facility] OPTOMETRY [address] [place] [address] Marshall, Betty, OD [address] [place] [address] Hyperopia of both eyes (Primary Dx) Social History Tobacco Use Types [...] housing situation today? I have priscila kruse 12/04/[address] you li ve. Do you have problems with any of the following? Pests such as bugs, ants, or mice 12/04/2024 Food Insecurity Answer Date Recorded Within the [...] getting things needed for daily living? No 12/04/2024 Utilities Answer Date Recorded In the past [...] of this encounter Progress Notes * Betty Olivares OD - 12/04/2024 9:15 AM EST MH glasses were dispensed, 1 of 2. documented in this encounter Plan of Treatment Upcoming Encounters Date Type Department Care Team (Late st Contact Info) Description 2024 9:00 AM EST Office Visit [facility] ADULT DENTAL [address] [place] [address] Wendi Pedroza 12/16/2024 11:00 AM EST Office Visit [facility] MEDICINE [address] [place] [address] 12/16/2024 3:45 PM EST Office Visit [facility] MEDICINE [address] [place] [address] Lissy Gracia MD [address] [place] [address] documented as of this encounter Visit Diagnoses Diagnosis Hyperopia of both eyes- Primary documented in this encounter Additional Health Concerns Assessment Noted Time PHQ-9 Depression Total Score: 0 02/05/20 24 1:47 PM EDT documented as of this encounter Care Teams Wool Buyer Relationship Specialty Start Date End Date Lissy Gracia MD [address] [place] [address] PCP - General Family Medicine 06/07/21 Reinaldo Persaud RN [address] [place] [address] Stone Mill OperatorPrinting Screen Assembler 11/05/24 documented as of this encounter
--- OUTSIDE RECORDS SUMMARY | 2024-12-09 10:20 | XMS_ITS | Encounter Summary ---
Author Organization [employer] Address [address] [place] [address] Care Team Providers Care Postal Service Sectional Center Manager Name Role Phone Lissy Gracia MD Primary Care Provider [phone] Reinaldo Persaud RN Unavailable [phone] Encounter Details Date Type Department Care Team ([facility] Contact Info) Description 11/29/2024 Telephone [facility] MEDICINE [address] [place], [place] [phone] Lissy Gracia MD [address] [place] [address] Social History Tobacco Use Types Packs/Day Years [...] Telephone Encounter - Reinaldo Persaud RN - 11/29/2024 12:24 PM EST Patient unable to attend visit with with [facility] Pain Management/ Clinic on 12/09. Patient is also scheduled to see Cardiology on 12/09 at 10:00am. Patient requesting return call with new appt date. Pleasecontact patient at [phone] to reschedule. Thank you! documented in this encounter Plan of Treatment Upcoming Encounters Date Type Department Care Team (Late st Contact Info) Description 2024 9:00 AM EST Office Visit [facility] ADULT DENTAL [address] [place] [address] Wendi Pedroza 12/16/2024 11:00 AM EST Office Visit [facility] MEDICINE [address] [place] [address] 12/16/2024 3:45 PM EST Office Visit [facility] MED[facility]INE [address] [place] [address] Lissy Gracia MD [address] [place] [address] documented as of this encounter Visit Diagnoses Not on filedocumented in this encounter Additional Health Concerns Assessment Noted Time PHQ-9 Depression Total Score: 0 02/05/20 24 1:47 PM EDT documented as of this encounter Care Teams Postal Service Sectional Center Manager Relationship Specialty Start Date End Date Lissy Gracia MD [address] [place] [address] PCP - General Family Medicine 06/07/21 Reinaldo ePrsaud RN [address] [place] [address] Scan CoordinatorRetail Area Manager 11/05/24 documented as of this encounter
--- OUTSIDE RECORDS SUMMARY | 2024-12-09 10:20 | XMS_ITS | Clinical Summary ---
Author Organization [employer] Address [address] [place] [address] Care Team Providers Care Lead Sql Developer Name Role Phone Lissy Gracia MD Primary Care Provider [phone] Reinaldo Persaud RN Unavailable [phone] Allergies No known active allergies Medications docusate sodium (Colace) 100 MG capsule Take 100 mg by mouth at bedtime. 022 Active famotidine (Pepcid) 40 MG tablet Take 40 mg by mouth at bedtime. 022 Active Blood Glucose Monitoring Suppl (BioSigniaStyle Lite) w/Device kitIndications:Ty pe 2 diabetes mellitus with hyperglycemia, without long-term current use of insulin ([facility]) 1 kit 2 times daily. To monitor [...] for up to 30 doses. 15 tablet 024 Active Spacer/Aero-Holdi ng Chambers (Pro Comfort Spacer Adult) miscIndications:B ronchitis For use with inhaler. 1 each 024 Active FeroSul 325 (65 Fe) MG tablet TAKE 1 TABLET BY MOUTH EVERY OTHER DAY IN THE MORNING WITH FOOD OR ORANGE JUICE 45 tablet 6 024 Active fluticasone (Flonase) 50 MCG/ACT nasal sprayIndications: Allergic rhinitis, unspecified seasonality, unspecified trigger INHALE 1 TO 2 SPRAYS IN EACH NOSTRIL ONCE DAILY NEEDED 48 g 3 024 Active metFORMIN (Glucophage) 500 MG tablet TAKE 2 TABLETS BY MOUTH TWICE DAILY IN THE MORNING AND EVENING WITH MEALS 360 tablet 3 024 Active Diclofenac Sodium 1 % gelIndications:Ce rvical radiculopathy Apply 1 Application topically if needed in the morning and at bedtime (pain in feet). 100 g 6 024 Active lidocaine (Lidoderm) 5 % patchIndications: Cervical radiculopathy APPLY 1 TO 2 PATCHES TOPICALLY TO SKIN, LEAVE ON FOR 12 HOURS AND OFF FOR 12 HOURS DIRECTED 60 patch 6 024 Active Invokana 300 MG TAKE 1 TABLET BY MOUTH EVERY MORNING BEFORE BREAKFAST 90 tablet 3 024 Active albuterol (Ventolin HFA) 108 (90 Base) MCG/ACT inhalerIndication s:Bronchitis INHALE 2 PUFFS BY MOUTH EVERY 4 HOURS NEEDED 18 g 6 024 Active hydroCHLOROthiazi de (HYDRODiuril) 25 MG tablet [...] hyperglycemia, without long-term current use of insulin (CMS/HCC) Take 1 tablet (10 mg) by mouth in the morning. 90 tablet 3 024 Active atorvastatin (Lipitor) 40 MG tabletIndications :Other hyperlipidemia TAKE 1 TABLET BY MOUTH EVERY EVENING 90 tablet 3 024 Active ARIPiprazole (Abilify) 2 MG tabletIndications :Recurrent depression (CMS/HCC) Take 1 tablet by oral route every day at noon 90 tablet 3 Active Alcohol Swabs (SM Alcohol Prep) 70 % padsIndications:T ype 2 diabetes mellitus with hyperglycemia, without long-term current use of insulin ([facility]) Apply 1 each topically 2 times daily. 100 each 11 Active TRUEplus Lancets 33G miscIndications:T ype 2 diabetes mellitus with hyperglycemia, without long-term current use of insulin ([facility]) Apply 1 each topically 2 times daily. 100 each 11 Active Dulaglutide 1.5 MG/0.5ML solution auto-injectorIndi cations:Type 2 diabetes mellitus with hyperglycemia, without long-term current use of insulin ([facility]) Inject 0.5 mL (1.5 mg) as directed 1 (one) time per week. 2 mL 11 Active FREESTYLE LITE test stripIndications: Type 2 diabetes mellitus with hyperglycemia, without long-term current use of insulin ([facility]) 1 each by Other route 2 times [...] HOURS NEEDED FOR WHEEZING 90 mL 3 025 Active LORazepam (Ativan) 0.5 MG tablet Take 1 tablet by mouth 2 times daily. 024 Active magnesium oxide (Mag-Ox) 400 MG tablet Take 1 tablet by mouth at bedtime. 024 Active Breo Ellipta 200-25 MCG/ACT aerosol powder INHALE 1 PUFF BY MOUTH EVERY DAY AT THE SAME TIME RINSE MOUTH AFTER USING 025 Active diphenhydrAMINE (BENADryl) 25 MG capsule TAKE 2 CAPSULES BY MOUTH EVERY 6 HOURS NEEDED FOR NAUSEA AND VOMITING AND HEADACHE Active Pain Reliever Plus 250-250-65 MG tablet TAKE 2 TABLETS BY MOUTH EVERY 6 HOURS NEEDED FOR HEADACHE Active Miconazole 7 2 % vaginal cream INSERT 1 APPLICATORFUL VAGINALLY AT BEDTIME FOR 7 DAYS Active ondansetron ODT (Zofran-ODT) 4 MG disintegrating tablet DISSOLVE 1 TABLET encima de la lengua EVERY 8 HOURS DIRECTED 20 tablet 3 Active gabapentin (Neurontin) 300 MG capsuleIndication s:Chronic bilateral low back pain, unspecified whether sciatica present TAKE 1 CAPSULE BY MOUTH TWICE DAILY IN THE MORNING AND IN THE EVENING and TAKE 2 CAPSULES BY MOUTH EVERY DAY AT BEDTIME 120 capsule 11 Active acetaminophen (Tylenol) 325 MG tablet TAKE 2 TABLETS BY MOUTH EVERY 4 HOURS NEEDED FOR PAIN, FOR HEADACHE, OR FOR FEVER. 40 tablet Active Blood Pressure kit 1 each 2 times daily. 1 kit 024 2024 cetirizine (ZyrTEC) 10 MG tabletIndications :Allergic rhinitis, unspecified seasonality, unspecified trigger TAKE 1 TABLET BY MOUTH EVERY MORNING NEEDED 90 tablet 3 024 2024 Discontinued(T herapy completed) gabapentin (Neurontin) 300 MG capsuleIndication s:Chronic bilateral low back pain, unspecified whether sciatica present TAKE 1 CAPSULE BY MOUTH TWICE DAILY IN THE MORNING AND IN THE EVENING and TAKE 2 CAPSULES BY MOUTH EVERY DAY AT BEDTIME 120 capsule 11 024 2024 Discontinued amitriptyline (Elavil) 50 MG tablet TAKE 1 TABLET BY MOUTH AT BEDTIME 90 tablet 3 024 2024 Discontinued acetaminophen (Tylenol) 325 MG tablet Take 2 tablets (650 mg) by mouth every 4 (four) hours if needed for moderate pain, headaches or fever. 40 tablet 024 2024 Discontinued ondansetron ODT (Zofran-ODT) 4 MG disintegrating tablet DISSOLVE 1 TABLET ENCIMA DE LA LENGUA EVERY 8 HOURS DIRECTED 20 tablet 3 024 2024 Discontinued metoclopramide (Reglan) 10 MG tablet take 1 [...] for 5 days. 15 tablet 025 2024 nystatin (Mycostatin) 490696 UNIT/ML suspensionIndicat ions:Thrush, oral Take 4 mL (400,000 Units) by mouth 4 times daily for 14 days. 224 mL 025 2024 Active Problems Problem Noted Date [...] be having hypoglycemic episodes, including shaking in [place] where she hit her head Assessment & [...] 300mg daily Maintenance: Eye Exam: [facility] at [facility] 04/2022, next 04/2024 Diabetic foot exam: [...] 300mg daily Maintenance: Eye Exam: [facility] at [facility] 04/2022, next 04/2024 Diabetic foot exam: [...] for f/u Maintenance: Eye Exam: [facility] at [facility] 04/2022 Diabetic foot exam: 06/2022, decreased [...] for f/u Maintenance: Eye Exam: [facility] at [facility] 04/2022 Diabetic foot exam: 06/2022, decreased [...] for f/u Maintenance: Eye Exam: [facility] at [facility] 04/2022 Diabetic foot exam: 06/2022, decreased [...] for f/u Maintenance: Eye Exam: [facility] at [facility] 04/2022 Diabetic foot exam: 06/2022, decreased [...] for f/u Maintenance: Eye Exam: [facility] at [facility] 04/2022 Diabetic foot exam: 06/2022, decreased [...] Encounters Date Type Department Care Team Description 12/09/2024 Refill [facility] [address] [place] [address] Lissy Gracia MD Allergic rhinitis, unspecified seasonality, unspecified trigger 12/06/2024 Patient Outreach [facility] [address] [place], [place] [address]klarissa [facility] [place] [address] Lissy Gracia MD Care Coordination (C3 -[facility] Ammy Ziegler telephone call outreach) 12/05/2024 9:30 AM EST Office Visit [address] [place] [address] Irene Singletary MD Chronic migraine without aura without status migrainosus, not intractable (Primary Dx); Anxiety 12/05/2024 Outside Procedure [facility] [address] [place] [address] [place] [address] MarshallCelso umanan, OD Presbyopia (Primary Dx) 12/05/2024 Refill [facility] [address] [place] [address] Roscoe Alfaro MD 12/05/2024 Travel 12/04/2024 9:15 AM EST Office Visit [facility] [address] [place] [address] MarshallCelson, OD Hyperopia of both eyes (Primary Dx) 12/04/2024 Patient Outreach [address] [place] [address] Lissy Gracia MD Care Coordination (C3 [facility] Ammy Wigginsz telephone call outreach) 12/04/2024 Patient Outreach [address] [address] Lissy Gracia MD Pre-visit Planning (SDOH screening positive and tobacco screening negative) 12/04/2024 Travel 12/03/2024 9:45 AM EST Office Visit [facility] [address] [place], [place] [address]kl[place] [address] Irene Singletary MD Chronic migraine without aura without status migrainosus, not intractable (Primary Dx); Anxiety 12/03/2024 Telephone [facility] [address] [place] [address] Lissy Gracia MD Appointment Request 12/03/2024 Travel 11/29/[address] [address] Lissy Gracia MD 11/29/2024 Telephone [facility] [address] [place] [address] Lissy Gracia MD Care Management (C3CM- f/u call) 11/28/2024 9:00 AM EST Office Visit [facility] [address] [place] [address] PedrozaLarissasa Dental calculus (Primary Dx); Dental plaque; Subgingival dental calculus 11/28/2024 Refill [facility] [address] [place] [address] Lissy Gracia MD Chronic bilateral low back pain, unspecified whether sciatica present 11/27/2024 Patient Outreach [address] [address] Lissy Gracia MD Care Coordination (C3 [facility] Ammy Ziegler telephone call outreach) 11/26/2024 1:15 PM EST Office Visit [address] [address] Lissy Gracia MD Fibromyalgia (Primary Dx); Chronic migraine without aura without status migrainosus, not intractable 11/26/2024 Telephone [facility] [address] [place] [address] Susana Casillas MA Pain group 11/26/2024 Patient Outreach [address] [address] Lissy Gracia MD Care Coordination [facility]/) 11/26/2024 Travel 11/26/2024 Patient Outreach [address] [address] Lissy Gracia MD Care Coordination [facility]) 11/25/2024 Patient Outreach [address] [address] Lissy Gracia MD Care Coordination (C3 [facility] Ammy Ziegler telephone call outreach) 11/21/2024 Refill [facility] [address] [place] [phone] Candice Moreland DO 11/19/2024 1:15 PM EST Office Visit [facility] [address] [place] [address] Lissy Gracia MD Fibromyalgia (Primary Dx); Chronic migraine without aura without status migrainosus, not intractable 11/19/2024 8:00 AM EST Office Visit [facility] [address] [place] [address] Ciro Rockwell, LINHS Retained dental root (Primary Dx) 11/19/2024 Travel 11/19/2024 Refill [facility] [address] [place] [address] Lissy Gracia MD 11/19/2024 Patient Outreach [address] [address] Lissy Gracia MD Transition Of Care (Tcm) 11/18/2024 9:00 AM EST Office Visit [address] [address] Irene Singletary MD Chronic migraine without aura without status migrainosus, not intractable (Primary Dx); Anxiety 11/18/[address] [address] Lissy Gracia MD Lab Orders 11/18/2024 Patient Outreach [address] [address] Lissy Gracia MD Care Coordination (C3 [facility] Ammy Ziegler telephone call outreach) 11/18/2024 Travel 11/15/[address] [address] Reinaldo Persaud, LILIANE Care Management (C3CM- f/u call) 11/14/2024 1:40 PM EST Office Visit [facility] [address] [place] [phone] Candice Moreland DO Mild persistent asthma without complication (Primary Dx) 11/12/2024 1:15 PM EST Office Visit [address] [address] Lissy Gracia MD Chronic migraine without aura without status migrainosus, not intractable (Primary Dx) 11/12/2024 Travel 11/11/2024 11:00 AM EST Office Visit [facility] [address] [place] [address] Lissy Gracia MD Fibromyalgia (Primary Dx); Thrush, oral 11/11/2024 9:15 AM EST Office Visit [address] [address] Irene Singletary MD Chronic migraine without aura without status migrainosus, not intractable (Primary Dx); Anxiety 11/08/2024 Patient Outreach [facility] [address] [place] [phone] Lissy Gracia MD Care Coordination (C3 -[facility] Ammy Ziegler telephone call outreach) 11/07/2024 1:20 PM EST Office Visit [facility] [address] [place] [phone] Candice Moreland DO Mild persistent asthma with acute exacerbation (Primary Dx) 11/07/2024 9:00 AM EST Office Visit [address] [address] Irene Singletary MD Chronic migraine without aura without status migrainosus, not intractable (Primary Dx); Anxiety 11/07/2024 Patient Outreach [address] [address] Lissy Gracia MD 11/07/2024 Travel 11/05/2024 1:15 PM EST Office Visit [address] [address] Lissy Gracia MD Fibromyalgia (Primary Dx); Chronic migraine without aura without status migrainosus, not intractable; Tendency toward bleeding easily (CMS/[facility]) 11/05/[address] [address] Reinaldo Persaud, LILIANE Care Management (C3CM- initial assessment/ enrollment.) 11/05/2024 Patient Outreach [address] [address] Lissy Gracia MD Care Coordination (C3 -[facility] Ammy Ziegler telelphone call outreach) 11/05/[address] [address] Lissy Gracia MD Bronchitis 11/05/2024 Travel 10/31/2024 9:30 AM EST Office Visit [address] [address] Irene Singletary MD Chronic migraine without aura without status migrainosus, not intractable (Primary Dx); Anxiety 10/31/2024 Travel 10/30/2024 Patient Outreach [address] [address] Lissy Gracia MD Care Coordination (C3 [facility] Ammy Ziegler telephone call outreach) 10/30/[address] [address] Reinaldo Persaud RN Care Management (C3CM- chart review) 10/30/2024 Orders Only [facility] External Provider, [facility] 10/29/2024 8:40 AM EST Office Visit [facility] [address] [address] Rosana Cotton MD Upper back pain (Primary Dx); Chronic cough 10/29/[address] [address] Anitha Reed, RN Results 10/28/2024 11:00 AM EST Office Visit [address] [address] Lissy Gracia MD Fibromyalgia (Primary Dx); Bleeding from the ear, left; Chronic migraine without aura without status migrainosus, not intractable 10/28/2024 9:00 AM EST Office Visit [address] [address] Irene Singletary MD Chronic migraine without aura without status migrainosus, not intractable (Primary Dx); Anxiety 10/28/2024 Travel 10/24/2024 2:00 PM EST Office Visit [facility] [address] [address] Rosana Cotton MD Viral gastroenteritis (Primary Dx); Cough in adult patient 10/24/2024 10:30 AM EST Office Visit [facility] [address] [place] [address] Irene Singletary MD Chronic migraine without aura without status migrainosus, not intractable (Primary Dx); Anxiety 10/24/2024 Travel 10/24/2024 Telephone [facility] [address] [place] [address] Lissy Gracia MD Nurse Triage 10/23/2024 Orders Only GENERIC EXTERNAL DATA DEPARTMENT Provider, Generic External Data 10/22/2024 2:30 PM EST Office Visit [facility] [address] [place] [address] Marshall, Betty, OD Diabetes type 2, no ocular involvement (CMS/HCC) (Primary Dx); Bilateral retinal lattice degeneration; Combined 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-related cataract of both eyes; Presbyopia 10/22/2024 1:15 PM EST Office Visit [facility] [address] [place] [address] Lissy Gracia MD Chronic migraine without aura without status migrainosus, not intractable (Primary Dx); Type 2 diabetes mellitus without complication, without long-term current use of insulin (CMS/HCC); Cellulitis of head except face; Mild persistent asthma without complication; Diabetes due to underlying condition w oth circulatory comp (CMS/HCC) 10/22/2024 Orders Only GENERIC EXTERNAL DATA DEPARTMENT Provider, Generic External Data 10/22/2024 Travel 10/21/2024 Telephone [facility] [address] [place] [address] Susana Casillas [place] Pain Group Appt 09/26/2024 Telephone [facility] [address] [place] [address] Lissy Gracia MD 09/23/2024 Orders Only GENERIC EXTERNAL DATA DEPARTMENT Provider, Generic External Data 09/19/2024 2:40 PM EST Office Visit [facility] [address] [place] [address] Rosana Cotton MD Acute URI (Primary Dx) 09/19/2024 Refill [facility] [address] [place] [address] [place], [place], TAI [employer] Bronchitis 09/17/2024 2:15 PM EST Office Visit [facility] [address] [place] [address] Lissy Gracia MD Chronic migraine without aura without status migrainosus, not intractable (Primary Dx); Anxiety; Lipoma of face; Muscle pain 09/17/2024 Travel 09/16/2024 9:00 AM EST Office Visit [address] [phone] Irene Singletary MD Chronic migraine without aura without status migrainosus, not intractable (Primary Dx); Anxiety 09/16/2024 Travel 09/11/2024 2:00 PM EST Office Visit [facility] [address] [place] [address] Wendi Pedroza Dental plaque (Primary Dx); Dental calculus; Tartar deposits on teeth 09/10/2024 1:15 PM EST Office Visit [address] [phone] Lissy Gracia MD Chronic migraine without aura without status migrainosus, not intractable (Primary Dx); Type 2 diabetes mellitus with hyperglycemia, without long-term current use of insulin (CMS/[facility]); Recurrent depression (CMS/[facility]); Oral candidiasis 09/10/[address] [phone] Lissy Gracia MD 09/10/2024 Travel 09/09/2024 10:00 AM EST Office Visit [address] [phone] Irene Singletary MD Chronic migraine without aura without status migrainosus, not intractable (Primary Dx); Anxiety 09/09/2024 Refill [facility] [address] [place] [address] Lissy Gracia MD Other hyperlipidemia 09/09/2024 Travel 09/09/2024 Patient Outreach [address] [phone] Lissy Gracia MD Transition Of Care (Tcm) from Last 3 Months Immunizations Name Administration [...] Sign Reading Time Taken Comments Blood Pressure 128/82 11/28/2024 10:39 AM EST Pulse 89 11/14/2024 1:30 PM [...] Description 2024 9:00 AM EST Office Visit [facility] [address] [place] [address] Wendi Pedroza 12/16/2024 11:00 AM EST Office Visit [facility] [address] [place] [address] 12/16/2024 3:45 PM EST Office Visit [facility] [address] [place] [address] Lissy Gracia MD [address] [place] [address] Health Maintenance Due Date Last Done Comments [...] 02/05/2024 Depression Screening 02/04/2025 02/05/2024, 02/05/20 24 Dental Oral Exam 02/17/2025 08/19/2024, , 10/12/2017, Additional history exists Dental Prophylaxis 03/12/2025 09/11/2024, 0 04/10/2019, 03/27/2018 Diabetes: Foot Exam 08/15/2025 08/15/2024, 08/15/2024, 08/15/2024, Additional history exists Dental X-Ray: Bitewings 08/20/2025 08/19/20 24, 10/12/2017, 11/27/2013 Tobacco Screening 11/28/2025 11/28/2024 SDOH Screening 12/04/2025 12/04/2024 Eye Exam 10/22/2026 10/22/2024, 04/2025, 10/22/2024, Additional [...] Procedure Name Priority Date/Time Associated Diagnosis Comments CASE PRESENTATION, DETAILED AND EXTENSIVE TREATMENT PLANNING Routine 11/28/2024 9:00 AM EST LL PERIODONTAL SCALING AND ROOT PLANING - 1 TO 3 TEETH PER QUADRANT Routine 11/28/2024 9:00 AM EST Dental calculus Dental plaque Subgingival dental calculus ORAL HYGIENE INSTRUCTIONS Routine 11/28/2024 9:00 AM EST Dental calculus Dental plaque Subgingival dental calculus UL PERIODONTAL SCALING AND ROOT PLANING - 1 TO 3 TEETH PER QUADRANT Routine 11/28/2024 9:00 AM EST Dental calculus Dental plaque Subgingival dental calculus T-SPOT(R).TB Routine 11/25/2024 9:40 AM EST Encounter for screening for respiratory tuberculosis FERRITIN Routine 11/25/2024 9:40 AM EST Tendency toward bleeding easily (CMS/HCC) RETICULOCYTE COUNT Routine 11/25/2024 9: 40 AM EST Tendency toward bleeding easily (CMS/HCC) CASE PRESENTATION, DETAILED AND EXTENSIVE TREATMENT PLANNING Routine 11/19/2024 8:00 AM EST 16 EXTRACTION, ERUPTED TOOTH REQ REMOVAL OF BONE AND/OR SECTIONING OF TOOTH Routine 11/19/2024 8:00 AM EST POCT INFLUENZA [...] complication, without long-term current use of insulin ([facility]) HEMOGLOBIN A1C Routine 10/22/2024 3:49 PM EST Type 2 diabetes mellitus without complication, without long-term current use of insulin ([facility]) IMMUNOGLOBULIN E Routine 09/23/2024 2:26 PM EST [...] plaque Dental calculus Tartar deposits on teeth CASE PRESENTATION, DETAILED AND EXTENSIVE TREATMENT PLANNING Routine 09/11/2024 2:00 PM EST FULL MOUTH DEBRIDEMENT TO ENABLE A COMPREHENSIVE ORAL EVALUATION AND DIAGNOSIS ON A SUBSEQUENT VISIT Routine 09/11/2024 2:00 PM EST Dental plaque Dental calculus Tartar deposits on teeth PROPHYLAXIS - ADULT Routine 09/11/2024 2 :00 PM EST Dental plaque Dental calculus Tartar deposits on teeth INTRAORAL - COMPLETE SERIES OF RADIOGRAPHIC IMAGES Routine 08/19/2024 1:30 [...] 16, 18/45 Routine 09/12/2022 9:53 AM EST [facility] HISTORICAL HEPATITIS C ANTIBODY Routine 06/16/2020 12:35 PM EDT [facility] HISTORICAL HIV AB/AG Routine 06/16/2020 12:35 PM EDT from Last 3 Months or Most Recently Relevant to Health Maintenance Results * T-SPOT??.TB (11/25/2024 9:40 AM EST) [facility] T Spot TB Negative Negative [facility] Comment:A negative test resu lt does not exclude the possibilityof exposure to or infection with Mycobacteriumtuberculosis (M. tuberculosis). Patients with recentexposure to TB infected individuals exhibiting anegative T-SPOT.TB result should be considered forretesting within 6 weeks or if other relevant clinicalsymptoms indicate. Results from T-SPOT.TB testing mustbe used in conjunction with each individual'sepidemiological history, current medical status,and results of other diagnostic evaluations.The T-SPOT.TB test is qualitative and results arereported as positive, borderline, or negative, giventhat the test controls perform as expected. In linewith the Centers for Disease Control and Prevention's2010 recommendation to report quantitative measurementsalongside the qualitative result, the laboratoryprovides spot counts for informational purposes only.The T-SPOT.TB test should not be interpreted as aquantitative test. TS PANEL A 0 [facility] TS PANEL B 0 [facility] Negative Control Passed [facility] Positive Control Passed [facility] Comment:For additional infor mation, please refer [email or web address].[facility]/faq/FEA270(This link is being provided for informational/educational purposes only.)THIS TEST WAS PERFORMED AT:[facility] [id number] [place] [id number] W. MASON,MD,PHD 11/25/2024 9:40 AM EST 11/25/2024 11:06 AM EST us Lissy Gracia MD LAB BLOOD ORDERABLES Final Res ult [facility] [address] [place] [phone] * (ABNORMAL) Reticulocyte Count (11/25/2024 9:40 AM EST) Reticulocytes Absolute 0.072 0.026 - 0.095 X10*6/uL [facility] Immature Retic Fraction 15.0 3.0 - 15.9 % [facility] Retic HGB Equivalent 27.9(L) 30.0 - 35.0 pg [facility] Reticulocyte Percent 1.4 0.5 - 1.8 % [facility] Blood Venous blood specimen / Unknown 11/25/2024 9:40 AM EST 11/25/2024 11:06 AM EST Lissy Gracia MD LAB BLOOD ORDERABLES Final Res ult Performing Organization Address [facility] [facility] Co de Phone Number [facility] [address] [place] [phone] * Ferritin (11/25/2024 9:40 AM EST) Pathologist [facility] Ferritin 22 10 - 250 ng/mL [facility] Blood Venous blood specimen / Unknown 11/25/2024 9:40 AM EST 11/25/2024 11:06 AM EST Result [facility] Lissy Gracia MD LAB BLOOD ORDERABLES Final Res ult Performing Organization Address [facility] Phone Number [facility] [address] [place] [address] [phone] * Influenza B (ID NOW Rapid Molecular) (11/14/2024 1:52 PM EST) Only the most recent of4 resultswithin the time period is included. [facility] Influenza B Negative Negative, Indeterminate [facility] Swab 11/14/2024 1:52 PM EST Candice Moreland DO POINT OF CARE TEST ENTER/GOPAL T ORDERABLES Final Result Performing Organization Address [facility] Co de Phone Number [facility] [address] [place] [phone] * Influenza A (ID NOW Rapid Molecular) (11/14/2024 1:52 PM EST) Only the most recent of4 resultswithin the time period is included. [facility] Influenza A Negative Negative, Indeterminate [facility] Swab 11/14/2024 1:52 PM EST Candice Moreland DO POINT OF CARE TEST ENTER/GOPAL T ORDERABLES Final Result Performing Organization Address [facility] de Phone Number [facility] [address] [place] [phone] * POCT Rapid COVID Ag (11/14/2024 1:52 PM EST) Only the most recent of4 resultswithin the time period is included. Rapid COVID Ag Negative [facility] Swab 11/14/2024 1:52 PM EST Candice Moreland DO POINT OF CARE TEST ENTER/GOPAL T ORDERABLES Final Result Performing Organization Address [facility] Phone Number [facility] [address] [place] [address] [phone] * POCT rapid strep A manually resulted (11/14/2024 1:52 PM EST) Only the most recent of2 resultswithin the time period is included. [facility] Rapid Strep A Screen Negative Negative, None Detected [facility] Swab 11/14/2024 1:52 PM EST Candice Moreland DO POINT OF CARE TEST ENTER/GOPAL T ORDERABLES Final Result Performing Organization Address [facility] de Phone Number [facility] [address] [place] [phone] * XR Chest 2 Views (10/30/2024 1:42 AM EST) Anatomical Region Laterality Modality Chest Radiographic Liss ging 10/30/2024 1:42 AM EST Narrative 10/30/2024 1:44 AM EST ? [facility] ?[address] ?[place] [address] ?XRay Report ? Signed ? Patient: Ibanez Mundo,Irene ?MR#: ?? [id number] ? : 1975 ?Acct:[id number] ? Age/Sex: 48 / F ?ADM Date: 10/30/24 ? Loc: HO.ED ? Attending Dr: ? Ordering Physician: Generic ED Physician ?? Date of Service: 10/30/24 ?? Procedure(s): XR chest 2V ?? Accession Number(s): [id number] ? cc: Generic ED Physician; [facility] ? CLINICAL HISTORY: cough, lung pain ? [...] on ?? 10/30/2024 01:42:01 ? Dictated By: ?rCistian Rodrigez MD ? Signed By: ?<Electronically signed by Cristian Rodrigez MD in OV> ? 10/30/24 0143 ? DD/ 0142 ? TD/TT: 10/30/24 0142 ? Chief Crew Scheduler: ? Procedure Note Bayron, Image - 10/30/2024 [place] [address] XRay Report Signed Patient: Susu Garcia#: [id number] : 1975Acct:[id number] Age/Sex: 48 / FADM Date: 10/30/24 Loc: HO.ED Attending Dr: Ordering Physician: Generic ED Physician Date of Service: 10/30/24 Procedure(s): XR chest 2V Accession Number(s): [id number] cc: Generic ED Physician; [facility] CLINICAL HISTORY: cough, lung pain 2 view [...] in OV> 10/30/24142 DD/ 1 TD/TT: 10/30/24141 Chief Crew Scheduler: [facility] External Provider IMG XR PROCEDURES Final Result * SARS-CoV-2 RNA, Influenza A/B, and RSV RNA, Ql NAAT (10/30/2024 1:09 AM EST) Influenza A PCR NEGATIVE Negative [facility] Influenza B PCR NEGATIVE Negative [facility] Resp Syncy Virus RNA Qual PCR NEGATIVE Negative [facility] SARS COV2 PCR NEGATIVE Negative [facility] Comment:All test results mus [...] use by authorized laboratories.Testing performed on the [employer] GeneXpert utilizingreal-time RT-PCR.All SARS CoV2 and positive influenza A/B results arereported to [facility]. 10/30/2024 1:09 AM EST 10/30/2024 1:12 AM EST Generic External Data Provider LAB MICROBIOLOGY - GENERAL ORDERABLES Final Result [facility] [address] [place] [phone] * (ABNORMAL) CBC auto differential (10/28/2024 12:08 PM EST) Only the most recent of2 resultswithin the time period is included. White Blood Count 6.1 4.8 - 10.8 X10*3/uL [facility] Red Blood Count 4.85 4.20 - 5.50 X10*6/uL [facility] Hemoglobin 12.1 12.0 - 16.0 g/dl [facility] Hematocrit 37.4 37.0 - 47.0 % [facility] Mean Corpuscular Volume 77.1(L) 80.0 - 98.0 fL [facility] Mean Corpuscular Hemoglobin 24.9(L) 27.0 - 33.0 pg [facility] Mean Corpuscular HGB Conc 32.4 31.0 - 35.0 g/dl [facility] Red Cell Distribution Width 15.3 11.0 - 16.0 % [facility] Platelet Count 369 160 - 400 X10*3/uL [facility] Mean Platelet Volume 9.6 9.4 - 12.3 fL [facility] Neutrophils Percent Auto 56.2 45 - 73 % [facility] Imm Gran Pct Auto 0.3 0.0 - 0.4 % [facility] Lymphocytes Percent Auto 34.7 20 - 40 % [facility] Monocytes Percent Auto 7.1 2 - 11 % [facility] Eosinophils Percent Auto 1.2 0 - 4 % [facility] Basophils Percent Auto 0.5 0 - 2 % [facility] NRBC Pct Auto 0.0 0.0 - 0.2 /100WBC [facility] Neutrophils Absolute Auto 3.4 2.0 - 8.3 x10*3/uL [facility] Imm Gran Abs Auto 0.02 0.00 - 0.03 X10*3/uL [facility] Lymphocytes Absolute Auto 2.1 1.2 - 4.9 X10*3/uL [facility] Monocytes Absolute Auto 0.4 0.1 - 1.2 X10*3/uL [facility] Eosinophils Absolute Auto 0.1 0.0 - 0.4 X10*3/uL [facility] Basophils Absolute Auto 0.0 0.0 - 0.2 X10*3/uL [facility] NRBC Abs Auto 0.000 0.0 - 0.012 X10*3/uL [facility] Blood Venous blood specimen / Unknown 10/28/2024 12:08 PM EST 10/28/2024 1:08 PM EST Lissy Gracia MD LAB BLOOD ORDERABLES Final Res ult Performing Organization Address [facility]/ZIP Co de Phone Number [facility] [address] [place] [address] [phone] * (ABNORMAL) Prothrombin Time-INR (10/28/2024 12:08 PM EST) Prothrombin Time 10.8(L) 10.9 - 12.4 SEC [facility] INTERNATIONAL NORM RATIO 0.9 0.9 - 1.1 [facility] Comment:INTERNATIONAL NORMAL IZED RATIO (INR) [...] 12:08 PM EST 10/28/2024 1:08 PM EST Lissy Gracia MD LAB BLOOD ORDERABLES Final Res ult Performing Organization Address [facility] Co de Phone Number [facility] [address] [place] [address] [phone] * High Sensitivity Troponin I (10/23/2024 10:11 PM EST) TROPONIN I HIGH SENSITIVITY <2.7 <3.5 - 17.0 ng/L [facility] Comment:The [employer] high sens itivity Troponin-I results should beused in conjunction with other diagnostic information suchas ECG, clinical observations and information, and patientsymptoms to aid in the diagnosis of NC. 10/23/2024 10:1 1 PM EST 10/24/2024 1:15 AM EST Generic External Data Provider LAB BLOOD ORDERAB LES Final Result Performing Organization Address City/[facility]/ZIP Co de Phone Number [facility] [address] [place] [address] [phone] * (ABNORMAL) Hemoglobin A1c (10/22/2024 3:49 PM EST) Hemoglobin A1c 8.7(H) <6.0 % [facility] Comment:Hemoglobin A1C Refer ence Range Adults: 4.8 - 6.0 % Non diabetic: < 6.0 % Goal: < 7.0 %Additional Action Suggested: > 8.0 %Note: Hemoglobin A1c results are invalid for patients with abnormal amounts of HbF. Blood transfusions may impact the HbA1c concentration in the patient sample. Estimated Average Glucose 203 mg/dL [facility] Comment:eAG = Estimated ave rage glucose which is %A1C expressed asaverage glucose, using the formula of the W0U-PlhfqhrHsqlwkf Glucose study (ADAG), Diabetes Care, Vol.31,#8,May. 2007 Blood Venous blood specimen / Unknown 10/22/2024 3:49 PM EST 10/22/2024 5:46 PM EST us Lissy Gracia MD LAB BLOOD ORDERABLES Final Res ult Performing Organization Address City/[facility]/ZIP Co de Phone Number [facility] [address] [place] [phone] * Immunoglobulin E (10/22/2024 3:49 PM EST) Only the most recent of2 resultswithin the time period is included. Immunoglobulin E 3 <UT=340 kU/L [facility] Comment:THIS TEST WAS PERFOR MED AT:[facility] [place] [phone] HEIN MD 10/22/2024 3:49 PM EST 10/22/2024 5:46 PM EST us Generic External Data Provider LAB BLOOD ORDERAB LES Final Result Performing Organization Address [facility]/ZIP Co de Phone Number [facility] [address] [place] [address] [phone] * (ABNORMAL) Comprehensive Metabolic Panel (10/22/2024 3:49 PM EST) Sodium 137 135 - 145 mmol/L [facility] Potassium 3.9 3.3 - 5.1 mmol/L [facility] Chloride 109(H) 96 - 108 mmol/L [facility] Carbon Dioxide 23 22 - 29 mmol/L [facility] Anion Gap 9(L) 12 - 20 [facility] Urea Nitrogen (BUN) 15 9 - 16 mg/dL [facility] Creatinine, Serum 0.69 0.5 - 1.4 mg/dL [facility] Estimated Glomerular Filt Rate >60 [facility] Comment:Chronic Kidney Disea se: Estimated GFR < 60 mL/min/1.92g1Ryeejm Kidney Disease: Estimated GFR < 15 mL/min/1.73m2 Glucose 182(H) 60 - 115 mg/dL [facility] Calcium 9.0 8.4 - 10.2 mg/dL [facility] Bilirubin, Total 0.2 0.0 - 1.0 mg/dL [facility] Aspartate Amino Transferase 21 5 - 31 U/L [facility] Alanine Aminotransferase 26 0 - 31 U/L [facility] Total Protein 7.2 6.5 - 8.0 g/dL [facility] Albumin Level 4.3 3.5 - 5.0 g/dL [facility] Alkaline Phosphatase 90 39 - 117 U/L [facility] Blood Venous blood specimen / Unknown 10/22/2024 3:49 PM EST 10/22/2024 5:46 PM EST us Lissy Gracia MD LAB BLOOD ORDERABLES Final Res ult Performing Organization Address City/[facility]/ZIP Co de Phone Number [facility] [address] [place] [address] [phone] * Respiratory Allergy Profile Region I (09/23/2024 2:26 PM EST) Mouse Urine Proteins (E72) IgE <0.10 kU/L [facility] Class 0 [facility] Cockroach (I6) IgE <0.10 kU/L [facility] Class 0 [facility] Dermatophagoides farinae (D2) IgE <0.10 kU/L [facility] Class 0 [facility] Cat Dander (E1) IgE <0.10 kU/L [facility] Class 0 [facility] Comment:THIS TEST WAS PERFOR MED AT:[facility] [address] [phone] HEIN MD Dog Dander (E5) IgE <0.10 kU/L [facility] Class 0 [facility] Comment:THIS TEST WAS PERFOR MED AT:[facility] [address] [phone] HEIN MD [place] Grass (G6) IgE <0.10 kU/L [facility] Class 0 [facility] Cladosporium herbarum (M2) IgE <0.10 kU/L [facility] Class 0 [facility] Aspergillus Fumigatis (M3) IgE <0.10 kU/L [facility] Class 0 [facility] Alternaria alternata (M6) IgE <0.10 kU/L [facility] Class 0 [facility] Comment:THIS TEST WAS PERFOR MED AT:[facility] [address] [phone] HEIN MD [place] (t6) IgE <0.10 kU/L [facility] Class 0 [facility] Drift (T7) IgE <0.10 kU/L [facility] Class 0 [facility] [place] Tree (T10) IgE <0.10 kU/L [facility] Class 0 [facility] Chisholm (T11) IgE <0.10 kU/L [facility] Class 0 [facility] Mills (T14) IgE <0.10 kU/L [facility] Class 0 [facility] White [place] (t15) IgE <0.10 kU/L [facility] Class 0 [facility] White Tuttle (T70) IgE <0.10 kU/L [facility] Class 0 [facility] Common Ragweed (Short) (W1) IgE <0.10 kU/L [facility] Class 0 [facility] Mugwort (w6) IgE <0.10 kU/L [facility] Class 0 [facility] Dermatophagoides pteronyssinus (D1) IgE <0.10 kU/L [facility] Class 0 [facility] Bermuda Grass (g2) IgE <0.10 kU/L [facility] Class 0 [facility] Penicillium Notatum (M1) IgE <0.10 kU/L [facility] Class 0 [facility] Birch (T3) IgE <0.10 kU/L [facility] Class 0 [facility] Elm (t8) IgE <0.10 kU/L [facility] Class 0 [facility] Maple (Sandoval) (T1) IgE <0.10 kU/L [facility] Class 0 [facility] Rough Pigweed (W14) IgE <0.10 kU/L [facility] Class 0 [facility] Sheep Blue Jay (W18) IgE <0.10 kU/L [facility] Class 0 [facility] Allergen Comment See Below [facility] Comment: Specific ?Level of AllergenIGE [...] and its analyticalperformance characteristics have been determined by[employer]. It has not been cleared or approvedby the U.S. Food and Drug Administration. This assayhas been validated pursuant to the CLIA regulationsand is used for clinical purposes.THIS TEST WAS PERFORMED AT:[facility] [address] ??[phone] HEIN MD 09/23/2024 2:26 PM EST 09/23/2024 2:26 PM EST us Generic External Data Provider LAB BLOOD ORDERAB LES Final Result [facility] [address] [place] [phone] * BI Mammogram Screening Tomosynthesis Bilateral (01/11/2024 2:45 PM EDT) Anatomical Region Laterality Modality Breast Bilateral Mammography 01/11/2024 2:45 PM EDT Narrative 02/06/2024 6:07 AM EDT ? [facility] ? [address] ?[place] [address] ? Mammography Report ? Signed ? Patient: Irene Garcia ?MR#: ?? [id number] ? : 1975 ?Acct:[id number] ? Age/Sex: 48 / F ?ADM Date: 01/11/24 ? Loc: HO.MAMMO ? Attending Dr: Lissy Gracia MD ? Ordering Physician: Lissy Gracia ?Results: 1Negative ? Date of Service: 01/11/24 ?Follow Up: 1 Year From Orig ?? inal Mammogram ? Procedure(s): MM tomosynthesis screening BI ?? Accession Number(s): [id number] ? cc: Lissy Gracia ? EXAMINATION: ?? MM SCREENING DIGITAL BREAST TOMOSYNTHESIS, BILATERAL ? CLINICAL INFORMATION: ? Screening. Asymptomatic. ? COMPARISON: ?? Mammography: This study is compared with prior exams dating back to ?? 2016. ? TECHNIQUE: ?? Digital breast tomosynthesis is [...] 0604 ? DD/ 1445 ? TD/TT: ? Chief Crew Scheduler: ? Procedure Note Bayron, Image - 02/06/2024 Phillip [facility] [address] [place] [address] Mammography Report Signed Patient: Irene Garcia#: [id number] : 1975Acct:[id number] Age/Sex: 48 / FADM Date: 01/11/24 Loc: [facility] Attending Dr: Lissy Gracia MD Ordering Physician: Rodriguez Graciaults: 1Negative Date of Service: 01/11/24Follow Up: 1 Year From Orig inal Mammogram Procedure(s): MM tomosynthesis screening BI Accession Number(s): [id number] cc: Lissy Gracia EXAMINATION: MM SCREENING DIGITAL [...] in OV> 02/06/24 0604 DD/ 1445 TD/TT: Chief Crew Scheduler: Lissy Gracia MD IMG BI PROCEDURES Final Result * Lipid Panel, Standard (12/25/2023 9:46 AM EDT) Triglycerides 44 <150 mg/dL [facility] Comment:Desirable Triglyceri de: less than 150 mg/dLBorderline High Triglyceride 150-199 mg/dLHigh Triglyceride: 200-499 mg/dLVery High Triglyceride: greater than or equal to 5OO mg/dL Cholesterol 145 <200 mg/dL [facility] Comment:Desirable Cholestero l: less than 200 mg/dLBorderline High Cholesterol: 200-239 mg/dLHigh Cholesterol: greater than 239 mg/dL LDL Cholesterol Calculated 64 <100 mg/dL [facility] Comment:Desirable LDL: less than 100 mg/dLNear Optimal/Above Optimal LDL: 110- 129 mg/dLBorderline High LDL: 130-159 mg/dLHigh LDL: 160-189 mg/dLVery High LDL: greater than or equal to 190 mg/dL HDL Cholesterol 73 >40 mg/dL [facility] Comment:Desirable HDL: great er than 40 mg/dL Note: This HDL assay may give artificially low results in patients with liver disease. Blood Venous blood specimen / Unknown 12/25/2023 9:46 AM EDT 12/25/2023 11:04 AM EDT us Lissy Gracia MD LAB BLOOD ORDERABLES Final Res ult [facility] [address] [place] [phone] * Pap Smear (11/22/2023 1:51 PM EST) 11/22/2023 1:51 PM EST 11/24/2023 8:30 AM EST Narrative [facility] - 12/04/2023 10:46 AM EST ----- ------- Name: Irene Garcia ?Age/Sex: 47/F ? : 1975 Unit#: [id number] ?? Attend Dr: Clare Jackson CNM ?Re11/22/23 ?Status: DEP REF ? Location: HO.LNP ?Disch: ? ----- ------- SPEC : [id number] ? RECD: 11/24/23 ? STATUS: ??SOUT ? REQ NUM: [id number] ? CHENG: 11/22/23-1351 ? SUBM DR: HarshawClare CNM ? ENTERED: ??11/24/23 ?SP TYPE: Pap [...] Not Detected ? HPV testing performed by [employer] [employer], [place], [place]. ??See reference laboratory ?? portion of the EMR for entire report. ?Clinical Information LMP: 11/14/23 Previous PAP test: 09/12/22, HPV+ ? Material Received ?? ThinPrep-Cervical Copies To: ?? Lissy Gracia ?? [address] ?? [place] [address] ?? [phone] ?? Clare Jackson CNM ?? [address] [facility] ?? [place] [address] ?? [phone] ----- ------- Signed (signature on file) Candelaria Lenore 12/04/23 1046 ? ----- ------- ? END OF REPORT ? us Generic External Data Provider LAB CYTOLOGY AROLDO TSAI Final Result [facility] [address] [place] [address] [phone] * Albumin, Random Urine W/Creatinine (11/06/2023 2:33 PM EST) Creatinine, Urine 59.51 mg/dL [facility] Microalbumin Urine 14.0 mg/L [facility] Microalbum Creatinine Ratio Ur 23.5 <30 ug/mg cr [facility] Comment:Albumin/Creatinine R atio Reference Ranges: Normal: < 30 ug/mg creatinine Microalbuminuria: 30 - 300 ug/mg creatinineClinical Albuminuria: > 300 ug/mg creatinine Urine (Urine, Random) 11/06/2023 2:33 PM EST 11/06/2023 4:16 PM EST us Lissy Gracia MD LAB URINE ORDERABLES Final Res ult [facility] [address] [place] [phone] * (ABNORMAL) HPV mRNA E6/E7 w/Reflex to HPV Genotypes 16, 18/45 (09/12/2022 9:53 AM EST) HPV nRNA E6/E7 Detected(A ) Not Detected [facility] Comment:Methodology: Transcr iption-Mediated AmplificationThis assay detects E6/E7 viral messenger RNA (mRNA) from 14high-risk HPV types (16,18,31,33,35,39,45,51,52,56,58,59,66,68).Cervical sources are required for HPV testing.If a vaginal source from a patient who has had atotal hysterectomy with removal of cervix wassubmitted, please contact the testing laboratoryfor alternative testing options.For additional information, please refer [email or web address](This link if provided for information/educational purposes only.)THIS TEST WAS PERFORMED AT:[facility] [place] [address],[place] [phone] HEIN MD HPV 16 RNA NOT DETECTED NOT DETECTED [facility] HPV 18/45 RNA NOT DETECTED NOT DETECTED [facility] Comment:Methodology: Transcr iption Mediated AmplificationCervical sources are required for HPV testing.If a vaginal source from a patient who has had atotal hysterectomy with removal of cervix wassubmitted, please contact the testing laboratoryfor alternative testing options.THIS TEST WAS PERFORMED AT:[facility],[place] [phone] HEIN MD 09/12/2022 9:53 AM EST 09/12/2022 12:00 PM EST [facility] External Provider LAB CYT OLOGY ORDERABLES Final Result Performing Organization Address [facility]/ZIP Co de Phone Number [facility] [address] [place] [address] [phone] * HEPATITIS C ANTIBODY (06/16/2020 12:35 PM EDT) HEPATITIS C ANTIBODY NONREACTIVE NONREACTIVE [facility] Comment: Antibodies to HCV not detected; does not exclude early acute HCV infection. 06/16/2020 12:3 5 PM EDT Historical Provider HISTORICAL/NON ORDERABLE LABS Final Result Performing Organization Address [facility] de Phone Number [facility] [address] * HIV AB/AG (06/16/2020 12:35 PM [...] detection of this assay. ?? [employer] Kitchen And Service Manager HIV Ag/Ab Combo assay result and supplemental assay results should be interpreted in conjunction with the patient's clinical presentation, history and other laboratory results. ??If the results are inconsistent with clinical evidence, additional testing is suggested to confirm the result. 06/16/2020 12:3 5 PM EDT Historical Provider HISTORICAL/NON ORDERABLE LABS Final Result Performing Organization Address [facility] Co de Phone Number [facility] [address] [place] [address], from Last 3 Months or Most Recently Relevant to Health Maintenance Insurance [place] [id number] [facility] MEDICAID STAND ADULT Care Teams Lead Sql Developer Relationship Specialty Start Date End Date Lissy Gracia MD [address] [place] [phone] PCP - General Family Medicine 06/07/21 Reinaldo Persaud, LILIANE [address] [place] [phone] [employer] ConsultantLoan Teller 11/05/24
--- OUTSIDE RECORDS SUMMARY | 2024-12-09 10:20 | XMS_ITS | Encounter Summary ---
Author Organization [employer] Address [address] 7t [place] [address] Care Team Providers Care Associate Sales Name Role Phone Lissy Gracia MD Primary Care Provider [phone] Reinaldo Persaud RN Unavailable [phone] Reason for Referral * Consultation (STAT) - Closed Specialty Diagnoses / Procedures Referred By Contac t Referred To Contact Pulmonary Disease Diagnoses Mild persistent asthma without complication Lissy Gracia MD [address] [place] [address] Phone: tel: fax: [facility] [address] 1st Floor [place], [place] Phone: tel: fax: Referral ID Status Reason Start Date Expiration Date V isits Requested Visits Authorized [id number] Closed Specialty Services Required 09/02/2024 09/02/2025 6 6 Encounter Details Date Type Department Care Team (Late st Contact Info) Description 09/02/2024 Orders Only [facility] MEDICINE [address] [place] [address] Lissy Gracia MD [address] [place] [address] [phone] Mild persistent asthma without complication (Primary Dx) [...] Description 2024 9:00 AM EST Office Visit [facility] ADULT DENTAL [address] [place] [address] Wendi Pedroza 12/16/2024 11:00 AM EST Office Visit [facility] MEDICINE [address] [place] [address] 12/16/2024 3:45 PM EST Office Visit [facility] MEDICINE [address] [place] [address] Lissy Gracia MD [address] [place] [address] Scheduled Referrals Name Type Priority Associated Diagnoses [...] documented as of this encounter Care Teams Associate Sales Relationship Specialty Start Date End Date Lissy Gracia MD [address] [place] [address] PCP - General Family Medicine 06/07/21 Reinaldo Persaud, LILIANE [address] [place] [address] Delivery AssistantGuest Relations Officer 11/05/24 documented as of this encounter
--- OUTSIDE RECORDS SUMMARY | 2024-12-09 10:20 | XMS_ITS | Encounter Summary ---
Author Organization [employer] Address [address] 7t [place] [address] Care Team Providers Care Senior Tax Analyst Name Role Phone Lissy Gracia MD Primary Care Provider [phone] Reinaldo Persaud RN Unavailable [phone] Encounter Details Date Type Department Care Team (Latest Contact Info) Description 12/05/2024 Outside Procedure [facility] OPTOMETRY [address] [place] [address] Marshall, Betty, OD [address] [place] [address] Presbyopia (Primary Dx) Social History Tobacco Use Types [...] the past 12 months, has t he [employer], gas, oil or water [employer] threatened to shut off services in your [...] Progress Notes * Betty Olivares OD - 12/05/2024 1:45 PM EST MH glasses were dispensed, 2 of 2. documented in this encounter Plan of Treatment Upcoming Encounters Date Type Department Care Team (Late st Contact Info) Description 2024 9:00 AM EST Office Visit [facility] ADULT DENTAL [address] [place] [address] Wendi Pedroza 12/16/2024 11:00 AM EST Office Visit [facility] MEDICINE [address] [place] [address] 12/16/2024 3:45 PM EST Office Visit [facility] MEDICINE [address] [place] [address] Lissy Gracia MD [address] [place] [address] documented as of this encounter Visit Diagnoses Diagnosis Presbyopia- Primary documented in this encounter Additional Health Concerns Assessment Noted Time PHQ-9 Depression Total Score: 0 02/05/20 24 1:47 PM EDT documented as of this encounter Care Teams Senior Tax Analyst Relationship Specialty Start Date End Date Lissy Gracia MD [address] [place] [address] PCP - General Family Medicine 06/07/21 Reinaldo Persaud RN [address] [place] [address] Resource ParaprofessionalPlaner Off Bearer 11/05/24 documented as of this encounter
--- OUTSIDE RECORDS SUMMARY | 2024-12-09 10:20 | XMS_ITS | Encounter Summary ---
Author Organization [employer] Address [address] 7t [place] [address] Care Team Providers Care Bobbin Winder Tender Name Role Phone Lissy Gracia MD Primary Care Provider [phone] Reinaldo Persaud RN Unavailable [phone] Encounter Details Date Type Department Care Team ([facility] st Contact Info) Description 11/14/2024 1:40 PM EST Office Visit [facility] WALK-IN CENTER [address] [place] [address] Candice Moreland DO [address] [place], [place] [phone] Mild persistent asthma without complication (Primary Dx) [...] appt to December. 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 Review of Systems Constitutional: Negative [...] Disp: 13 g, Rfl: 11 nystatin (Mycostatin) [id number] UNIT/ML suspension, Take 4 mL (400,000 Units) [...] Rfl: Spacer/Aero-Holding Chambers (Pro Comfort Spacer Adult) mis, For use with inhaler., Disp: 1 each, [...] 9:00 AM EST Office Visit [facility] ADULT DENTAL [address] [place] [address] Wendi Pedroza 12/16/2024 11:00 AM EST Office Visit [facility] MEDICINE [address] [place] [address] 12/16/2024 3:45 PM EST Office Visit [facility] MEDICINE [address] [place] [address] Lissy Gracia MD [address] [place] [address] documented as of this encounter Procedures Procedure [...] NOW Rapid Molecular) (11/14/2024 1:52 PM EST) [facility] Influenza B Negative Negative, Indeterminate [facility] Swab 11/14/2024 1:52 PM EST Candice Moreland DO POINT OF CARE TEST ENTER/GOPAL T ORDERABLES Final Result Performing Organization Address City/[facility]/ZIP Co de Phone Number [facility] [address] [place] [phone] * Influenza A (ID NOW Rapid Molecular) (11/14/2024 1:52 PM EST) [facility] Influenza A Negative Negative, Indeterminate [facility] Swab 11/14/2024 1:52 PM EST Candice Moreland DO POINT OF CARE TEST ENTER/GOPAL T ORDERABLES Final Result Performing Organization Address [facility]/ZIP Co de Phone Number [facility] [address] [place] [phone] * POCT rapid strep A manually resulted (11/14/2024 1:52 PM EST) [facility] Rapid Strep A Screen Negative Negative, None Detected [facility] Swab 11/14/2024 1:52 PM EST Candice Moreland DO POINT OF CARE TEST ENTER/GOPAL T ORDERABLES Final Result Performing Organization Address [facility] Co de Phone Number [facility] [address] [place] [phone] * POCT Rapid COVID Ag (11/14/2024 1:52 PM EST) [facility] Rapid COVID Ag Negative [facility] Swab 11/14/2024 1:52 PM EST Candice Moreland DO POINT OF CARE TEST ENTER/GOPAL T ORDERABLES Final Result [facility] [address] [place] [phone] documented in this encounter Visit Diagnoses Diagnosis Mild persistent asthma without complication- Primary documented in this encounter Additional Health Concerns Assessment Noted Time PHQ-9 Depression Total Score: 0 02/05/20 24 1:47 PM EDT documented as of this encounter Care Teams Bobbin Winder Tender Relationship Specialty Start Date End Date Lissy Gracia MD [address] [place] [address] PCP - General Family Medicine 06/07/21 Reinaldo Persaud RN [address] [place] [address] Biomedical Service EngineerEmergency Planner 11/05/24 documented as of this encounter
--- OUTSIDE RECORDS SUMMARY | 2024-12-09 10:20 | XMS_ITS | Encounter Summary ---
Author Organization [employer] Address [address] 7t [place] [address] Care Team Providers Care Rotary Cutter Name Role Phone Lissy Gracia MD Primary Care Provider [phone] Reinaldo Persaud RN Unavailable [phone] Reason for Visit * Reason Onset Date Comments Care Management 11/05/2024 C3CM- initial as sessment/ enrollment. Encounter Details Date Type Department Care Team ([facility] st Contact Info) Description 11/05/2024 Telephone [facility] MEDICINE [address] [place], [place] [phone] Reinaldo Persaud RN [address] [place], [place] [phone] Care Management (C3CM- initial assessment/ enrollment.) Social [...] Persaud RN, provided notification to PCP Dr. Grcaia of patient's enrollment into C3 Complex Care [...] and recurrent depression. Patient reports [facility] for [facility] health and psych. She [...] as needed. Patient reports being followed by [facility] FORMATION TESTING OPERATOR, [facility] GI, [facility] General Surgery, and [facility] Cardiology. She is scheduled to see Cardiology on 12/09/24 at 10:00am. She is also scheduled to see FORMATION TESTING OPERATOR on 11/26/24 at 3:30pm. Per patient, missed [...] to f/u with the Pain Clinic at [facility] on 11/11/24. She is aware of [...] understanding, and able to repeat back to film writer. A follow up call will be placed within 10 days, patient agrees with plan. documented in this encounter Plan of Treatment Upcoming Encounters Date Type Department Care Team (Late st Contact Info) Description 2024 9:00 AM EST Office Visit [facility] ADULT DENTAL [address] [place] [address] Wendi Pedroza 12/16/2024 11:00 AM EST Office Visit [facility] MEDICINE [address] [place] [address] 12/16/2024 3:45 PM EST Office Visit [facility] MEDICINE [address] [place] [address] Lissy Gracia MD [address] [place] [address] documented as of this encounter Visit Diagnoses Not on filedocumented in this encounter Additional Health Concerns Assessment Noted Time PHQ-9 Depression Total Score: 0 02/05/20 24 1:47 PM EDT documented as of this encounter Care Teams Rotary Cutter Relationship Specialty Start Date End Date Lissy Gracia MD [address] [place] [address] 23989 PCP - General Family Medicine 06/07/21 Reinaldo Persaud RN [address] [place] [address] Charge Master AnalystRehabilitation Teacher 11/05/24 documented as of this encounter
--- OUTSIDE RECORDS SUMMARY | 2024-12-09 10:20 | XMS_ITS | Encounter Summary ---
Author Organization [employer] [facility] Address [address] 7t [place] [address] Care Team Providers Care Automotive Professional Name Role Phone Lissy Gracia MD Primary Care Provider [phone] Reinaldo Persaud RN Unavailable [phone] Reason for Visit * Reason Comments Med Refill Encounter Details Date Type Department Care Team (Late st Contact Info) Description 12/25/2022 Refill [facility] MEDICINE [address] [place] [address] Adriana Ramesh MD [address] [place] [address] Social History Tobacco Use Types Packs/Day Years [...] Description 2024 9:00 AM EST Office Visit [facility] ADULT DENTAL [address] [place] [address] Wendi Pedroza 12/16/2024 11:00 AM EST Office Visit [facility] MEDICINE [address] [place] [address] 12/16/2024 3:45 PM EST Office Visit [facility] MEDICINE [address] [place] [address] 270[address] Lissy Gracia MD [address] [place] [address] documented as of this encounter Visit Diagnoses Not on filedocumented in this encounter Care Teams Automotive Professional Relationship Specialty Start Date End Date Lissy Gracia MD [address] [place] [address] PCP - General Family Medicine 06/07/21 Reinaldo Persaud, LILIANE [address] [place] [address] Wind Turbine Controls EngineerPetroleum Terminal Plant Operator 11/05/24 documented as of this encounter
--- OUTSIDE RECORDS SUMMARY | 2024-12-09 10:20 | XMS_ITS | Encounter Summary ---
Author Organization [employer] Address [address] 7t [place] [address] Care Team Providers Care Analytic Programmer Name Role Phone Lissy Gracia MD Primary Care Provider [phone] Reinaldo Persaud RN Unavailable [phone] Reason for Visit * Reason Comments Acupuncture Encounter Details Date Type Department Care Team ([facility] st Contact Info) Description 11/11/2024 9:15 AM EST Office Visit [facility] MEDICINE 230 [place] [address] Irene Singletary MD [address] [place] [address] Chronic migraine without aura without status migrainosus, [...] Description 2024 9:00 AM EST Office Visit [facility] ADULT DENTAL [address] [place] [address] Wendi Pedroza 12/16/2024 11:00 AM EST Office Visit [facility] MEDICINE [address] [place] [address] 12/16/2024 3:45 PM EST Office Visit [facility] MEDICINE [address] [place] [address] Lissy Gracia MD [address] [place] [address] documented as of this encounter Visit Diagnoses Diagnosis Chronic migraine without aura without status migrainosus, not intractable- Primary Anxiety Anxiety state, unspecified documented in this encounter Additional Health Concerns Assessment Noted Time PHQ-9 Depression Total Score: 0 02/05/20 24 1:47 PM EDT documented as of this encounter Care Teams Analytic Programmer Relationship Specialty Start Date End Date Lissy Gracia MD [address] [place] [address] PCP - General Family Medicine 06/07/21 Reinaldo Persaud RN [address] [place] [address] Application Security SpecialistObstetrics Gyn 11/05/24 documented as of this encounter
--- OUTSIDE RECORDS SUMMARY | 2024-12-09 10:20 | XMS_ITS | Encounter Summary ---
Author Organization [employer] [facility] Address [address] 7t [place] [address] Care Team Providers Care Television Director Name Role Phone Lissy Gracia MD Primary Care Provider [phone] Reinaldo Persaud RN Unavailable [phone] Reason for Visit * Reason Onset Date Comments Appointment Request 12/03/2024 Encounter Details Date Type Department Care Team ([facility] st Contact Info) Description 12/03/2024 Telephone [facility] MEDICINE [address] [place] [address] Lissy Gracia MD [address] [place] [address] Appointment Request Social History Tobacco Use Types [...] Telephone Encounter - Susana Casillas [place] - 12/03/2024 3:26 PM EST T/c to rs chronic pain group for 12/16/24 due to pt having cardio appt on 12/09/24. Pt confirmed she can come in for next group on 12/16/24 documented in this encounter Plan of Treatment Upcoming Encounters Date Type Department Care Team (Late st Contact Info) Description 2024 9:00 AM EST Office Visit [facility] ADULT DENTAL [address] [place] [address] Wendi Pedroza 12/16/2024 11:00 AM EST Office Visit [facility] MEDICINE [address] [place] [address] 12/16/2024 3:45 PM EST Office Visit [facility] MEDICINE [address] [place] [address] Lissy Gracia MD [address] [place] [address] documented as of this encounter Visit Diagnoses Not on filedocumented in this encounter Additional Health Concerns Assessment Noted Time PHQ-9 Depression Total Score: 0 02/05/20 24 1:47 PM EDT documented as of this encounter Care Teams Television Director Relationship Specialty Start Date End Date Lissy Gracia MD [address] [place] [address] PCP - General Family Medicine 06/07/21 Reinaldo Persaud RN [address] [place] [address] SimonizerAir Analysis Technician 11/05/24 documented as of this encounter
--- OUTSIDE RECORDS SUMMARY | 2024-12-09 10:20 | XMS_ITS | Encounter Summary ---
Author Organization [employer] Address [address] 7t [place] [address] Care Team Providers Care Blacktop Spreader Name Role Phone Lissy Gracia MD Primary Care Provider [phone] Reinaldo Persaud RN Unavailable [phone] Reason for Visit * Reason Comments Care Coordination C3 [facility] Ammy bruce telephone call outreach Encounter Details Date Type Department Care Team (Latest Contact Info) Description 12/04/2024 Patient Outreach [facility] MEDICINE [address] [place] [address] Lissy Gracia MD [address] [place] [address] Care Coordination ([facility] telephone [facility] outreach) [...] encounter Progress Notes * Ammy Ziegler - 12/04/2024 11:35 AM EST CHW Ammy Ziegler placed outbound call to patient introducing herself from [facility] CM Department, in regards to offering CM-CHW program services. Patient's name and was confirmed. Patient agrees to participate in CHW- program for SDOH needs. SDOH screening completed: 12/04/24, CHW spoke to patient she has pests in the house, she spoke to the landlord she says they are not doing whatthey need to do. CHW gave patient information on pest control. CHW reinforced direct contact information for any additional questions or concerns and extended clinic hours on Mondays and Wednesdays, and Walk-In Urgent Care Located in [facility].Patient provided with after-hours line for [facility], , which offer night time triage serviceand option to transfer to university demonstrator provider if needed. Patient verbalizes understanding, and able torepeat back to typewriter aligner. documented in this encounter Plan of Treatment Upcoming Encounters Date Type Department Care Team (Late st Contact Info) Description 2024 9:00 AM EST Office Visit [facility] ADULT DENTAL [address] [place] [address] Wendi Pedroza 12/16/2024 11:00 AM EST Office Visit [facility] MEDICINE [address] [place] [address] 12/16/2024 3:45 PM EST Office Visit [address] [address] Lissy Gracia MD [address] [place] [address] documented as of this encounter Visit Diagnoses Not on filedocumented in this encounter Additional Health Concerns Assessment Noted Time PHQ-9 Depression Total Score: 0 02/05/20 24 1:47 PM EDT documented as of this encounter Care Teams Blacktop Spreader Relationship Specialty Start Date End Date Lissy Gracia MD [address] [place] [address] PCP - General Family Medicine 06/07/21 Reinaldo Persaud, LILIANE [address] [place] [address] Profiling Machine Set Up Operator ToolEngagement Quality Consultant 11/05/24 documented as of this encounter
--- OUTSIDE RECORDS SUMMARY | 2024-12-09 10:20 | XMS_ITS | Encounter Summary ---
Author Organization [employer] Address [address] 7t [place] [address] Care Team Providers Care Mower Mechanic Name Role Phone Lissy Gracia MD Primary Care Provider [phone] Reinaldo Persaud RN Unavailable [phone] Reason for Visit * Reason Onset Date Comments Care Management 11/15/2024 C3CM- f/u call Encounter Details Date Type Department Care Team ([facility] st Contact Info) Description 11/15/2024 Telephone [facility] MEDICINE [address] [place], [place] [phone] Reinaldo Persaud, RN [address] [place], [place] [phone] Care Management (C3CM- f/u call) Social History [...] the past 12 months, has t he [employer], gas, oil or water [employer] threatened to shut off services in your [...] has been seen in the [place] with asthma/ respiratory symptoms. Patient was last seen on 11/14/24. Per patient, stopped by her Beta Tester's office this morning to report an increase [...] appt scheduled on 11/27/24 at 11:00am at [address] [place] [address] in [place]. She verbalizes understanding. Patient also aware of her scheduled visit with [facility] on 11/26/24 at 3:30pm. Patient states she [...] provided on Walk-In Urgent Care located in [facility]. Patient provided with after-hours line for [facility], , which offer night time triage service and option to transfer to contemporary or modern dancer provider if needed. Patient verbalizes understanding, and able to r epeat back to junior copywriter. A follow up call will be placed [...] 2024 9:00 AM EST Office Visit [facility] ADULT DENTAL [address] [place] [address] Wendi Pedroza 12/16/2024 11:00 AM EST Office Visit [facility] MEDICINE [address] [place] [address] 12/16/2024 3:45 PM EST Office Visit [facility] MEDICINE [address] [place] [address] Lissy Gracia MD [address] [place] [address] documented as of this encounter Visit Diagnoses Not on filedocumented in this encounter Additional Health Concerns Assessment Noted Time PHQ-9 Depression Total Score: 0 02/05/20 24 1:47 PM EDT documented as of this encounter Care Teams Mower Mechanic Relationship Specialty Start Date End Date Lissy Gracia MD [address] [place] [address] PCP - General Family Medicine 06/07/21 Reinaldo Persaud RN [address] [place] [address] Chip MuckerIt Integration Architect 11/05/24 documented as of this encounter
--- OUTSIDE RECORDS SUMMARY | 2024-12-09 10:20 | XMS_ITS | Encounter Summary ---
Author Organization [employer] Address [address] [facility] [address] 7t [place] [address] Care Team Providers Care Wire Temperer Name Role Phone Lissy Gracia MD Primary Care Provider [phone] Reinaldo Persaud RN Unavailable [phone] Reason for Visit * Reason Comments Acupuncture Encounter Details Date Type Department Care Team ([facility] st Contact Info) Description 11/18/2024 9:00 AM EST Office Visit [facility] MEDICINE [address] [place] [address] Irene Singletary MD [address] [place] [address] Chronic migraine without aura without status migrainosus, [...] Description 2024 9:00 AM EST Office Visit [facility] ADULT DENTAL [address] [place] [address] Wendi Pedroza 12/16/2024 11:00 AM EST Office Visit [facility] MEDICINE [address] [place] [address] 12/16/2024 3:45 PM EST Office Visit [facility] MEDICINE [address] [place] [address] Lissy Gracia MD [address] [place] [address] documented as of this encounter Visit Diagnoses Diagnosis Chronic migraine without aura without status migrainosus, not intractable- Primary Anxiety Anxiety state, unspecified documented in this encounter Additional Health Concerns Assessment Noted Time PHQ-9 Depression Total Score: 0 02/05/20 24 1:47 PM EDT documented as of this encounter Care Teams Wire Temperer Relationship Specialty Start Date End Date Lissy Gracia MD [address] [place] [address] PCP - General Family Medicine 06/07/21 Reinaldo Persaud RN [address] [place] [address] Reinforced Steel Placing SupervisorJ2Ee Application Developer 11/05/24 documented as of this encounter
--- OUTSIDE RECORDS SUMMARY | 2024-12-09 10:20 | XMS_ITS | Encounter Summary ---
Author Organization [employer] Address [address] [facility] [address]t [place] [address] Care Team Providers Care Manager Semiconductor Name Role Phone Lissy Gracia MD Primary Care Provider [phone] Reinaldo Persaud RN Unavailable [phone] Reason for Visit * Reason Comments Acupuncture Encounter Details Date Type Department Care Team ([facility] st Contact Info) Description 12/05/2024 9:30 AM EST Office Visit [facility] MED[facility]INE [address] [place] [address] Irene Singletary MD [address] [place] [address] Chronic migraine without aura without status migrainosus, [...] Progress Notes * Irene Singletary MD - 12/05/2024 9:30 AM EST Subjective Patient ID: Irene [...] Visit [facility] ADULT DENTAL [address] [place] [address] Wendi Pedroza 12/16/2024 11:00 AM EST Office Visit [facility] MEDICINE [address] [place] [address] 12/16/2024 3:45 PM EST Office Visit [facility] MED[facility]INE [address] [place] [address] Lissy Gracia MD [address] [place] [address] documented as of this encounter Visit Diagnoses Diagnosis Chronic migraine without aura without status migrainosus, not intractable- Primary Anxiety Anxiety state, unspecified documented in this encounter Additional Health Concerns Assessment Noted Time PHQ-9 Depression Total Score: 0 02/05/20 24 1:47 PM EDT documented as of this encounter Care Teams Manager Semiconductor Relationship Specialty Start Date End Date Lissy Gracia MD 230 [place] [address] PCP - General Family Medicine 06/07/21 Reinaldo Persaud RN [address] [place] [address] Commercial LenderFlake Cutter Operator 11/05/24 documented as of this encounter
--- OUTSIDE RECORDS SUMMARY | 2024-12-09 10:20 | XMS_ITS | Encounter Summary ---
Author Organization [employer] Address [address] [facility] [address] 7[address] [place] [address] Care Team Providers Care Insurance Account Assistant Name Role Phone Lissy Gracia MD Primary Care Provider [phone] Reinaldo Persaud RN Unavailable [phone] Encounter Details Date Type Department Care Team ([facility] Contact Info) Description 11/11/2024 11:00 AM EST Office Visit [facility] MEDICINE [address] [place] [address] Lissy Gracia MD 230 [place] [address] Fibromyalgia (Primary Dx); Thrush, oral Social History [...] the past 12 months, has t he [employer], gas, oil or water [employer] threatened to shut off services in your [...] Cymbalta Thrush, oral Relevant Medications nystatin (Mycostatin) [id number] UNIT/ML suspension Follow up: 1 month for [...] Description 2024 9:00 AM EST Office Visit [facility] ADULT DENTAL [address] [place] [address] Wendi Pedroza 12/16/2024 11:00 AM EST Office Visit [facility] MEDICINE [address] [place] [address] 12/16/2024 3:45 PM EST Office Visit [address] [address] Lissy Gracia MD [address] [place] [address] documented as of this encounter Visit Diagnoses Diagnosis Fibromyalgia- Primary Unspecified myalgia and myositis Thrush, oral documented in this encounter Additional Health Concerns Assessment Noted Time PHQ-9 Depression Total Score: 0 02/05/20 24 1:47 PM EDT documented as of this encounter Care Teams Insurance Account Assistant Relationship Specialty Start Date End Date Lissy Gracia MD [address] [place] [address] PCP - General Family Medicine 06/07/21 Reinaldo Persaud RN [address] [place] [address] Explosive Ordnance Disposal TechnicianAdvance Seal Delivery System Maintainer 11/05/24 documented as of this encounter
--- OUTSIDE RECORDS SUMMARY | 2024-12-09 10:20 | XMS_ITS | Encounter Summary ---
Author Organization [employer] [facility] Address [address] [facility] [address] 7t [place] [address] Care Team Providers Care Design Engineer Marine Equipment Name Role Phone Lissy Gracia MD Primary Care Provider [phone] Reinaldo Persaud RN Unavailable [phone] Reason for Visit * Reason Comments Med Refill Encounter Details Date Type Department Care Team (Late st Contact Info) Description 12/26/2022 Refill [facility] MEDICINE [address] [place] [address] Adriana Ramesh MD [address] [place] [address] Primary hypertension Social History Tobacco Use Types [...] Description 2024 9:00 AM EST Office Visit [facility] ADULT DENTAL [address] [place] [address] Wendi Pedroza 12/16/2024 11:00 AM EST Office Visit [facility] MED[facility]INE [address] [place] [address] 12/16/2024 3:45 PM EST Office Visit [facility] MED[facility] [address] [place] [address] Lissy Gracia MD 230 [place] [address] documented as of this encounter Visit Diagnoses Diagnosis Primary hypertension Unspecified essential hypertension documented in this encounter Care Teams Design Engineer Marine Equipment Relationship Specialty Start Date End Date Lissy Gracia MD 230 [place], [place] [phone] PCP - General Family Medicine 06/07/21 Reinaldo Persaud, LILIANE [address] [place] [address] Visual Merchandising DirectorOracle Bpm Consultant 11/05/24 documented as of this encounter
--- OUTSIDE RECORDS SUMMARY | 2024-12-09 10:20 | XMS_ITS | Encounter Summary ---
Author Organization [employer] Address [address] [facility] [address] 7t [place] [address] Care Team Providers Care Area Manager Name Role Phone Lissy Gracia MD Primary Care Provider [phone] Reinaldo Persaud RN Unavailable Encounter Details Date Type Department Care Team ([facility] st Contact Info) Description 01/19/2024 Telephone [facility] MEDICINE 230 [place], [place] [phone] Lissy Gracia MD 230 [place] [address] Social History Tobacco Use Types Packs/Day Years [...] Description 2024 9:00 AM EST Office Visit [facility] ADULT DENTAL [address] [place] [address] Wendi Pedroza 12/16/2024 11:00 AM EST Office Visit [facility] MED[facility]INE [address] [place] [address] 12/16/2024 3:45 PM EST Office Visit [address] [address] Lissy Gracia MD [address] [place] [address] documented as of this encounter Visit Diagnoses Not on filedocumented in this encounter Additional Health Concerns Assessment Noted Time PHQ-9 Depression Total Score: 0 06/09/20 3:37 PM EDT documented as of this encounter Care Teams Area Manager Relationship Specialty Start Date End Date Lissy Gracia MD [address] [place] [address] PCP - General Family Medicine 06/07/21 Reinaldo Persaud RN [address] [place] [address] Design Engineering Specialist3D Artist 11/05/24 documented as of this encounter
--- OUTSIDE RECORDS SUMMARY | 2024-12-09 10:20 | XMS_ITS | Encounter Summary ---
Author Organization [employer] Address [address] [facility] [address] 7t [place] [address] Care Team Providers Care Produce Clerk Name Role Phone Lissy Gracia MD Primary Care Provider [phone] Reinaldo Persaud RN Unavailable [phone] Reason for Visit * Reason Comments Med Refill Encounter Details Date Type Department Care Team ([facility] st Contact Info) Description 08/19/2024 Refill [facility] MED[facility]INE 230 [place] [address] Adriana Ramesh MD 230 [place], [place] [phone] Type 2 diabetes mellitus with hyperglycemia, without long-term current use of insulin ([facility]) [...] Description 2024 9:00 AM EST Office Visit [facility] ADULT DENTAL [address] [place] [address] Wendi Pedroza 12/16/2024 11:00 AM EST Office Visit [facility] MEDICINE [address] [place] [address] 12/16/2024 3:45 PM EST Office Visit [facility] MEDICINE [address] [place] [address] Lissy Gracia MD [address] [place] [address] documented as of this encounter Visit Diagnoses Diagnosis Type 2 diabetes mellitus with hyperglycemia, without long-term current use of insulin ([facility]) documented in this encounter Additional Health Concerns Assessment Noted Time PHQ-9 Depression Total Score: 0 02/05/20 24 1:47 PM EDT documented as of this encounter Care Teams Produce Clerk Relationship Specialty Start Date End Date Lissy Gracia MD 230 [place] [address] PCP - General Family Medicine 06/07/21 Reinaldo Persaud RN [address] [place] [address] Monogram Machine OperatorStudio Owner 11/05/24 documented as of this encounter
--- OUTSIDE RECORDS SUMMARY | 2024-12-09 10:20 | XMS_ITS | Encounter Summary ---
Author Organization [employer] Address [address] [facility] [address] 7t [place] [address] Care Team Providers Care Utilization Specialist Name Role Phone Lissy Gracia MD Primary Care Provider [phone] Reinaldo Persaud RN Unavailable [phone] Encounter Details Date Type Department Care [...] 2024 9:00 AM EST Office Visit [facility] ADULT DENTAL [address] [place] [address] Wendi Pedroza 12/16/2024 11:00 AM EST Office Visit [facility] MEDICINE [address] [place] [address] 12/16/2024 3:45 PM EST Office Visit [facility] MEDICINE [address] [place] [address] Lissy Gracia MD [address] [place] [address] documented as of this encounter Visit Diagnoses Not on filedocumented in this encounter Additional Health Concerns Assessment Noted Time PHQ-9 Depression Total Score: 0 02/05/20 24 1:47 PM EDT documented as of this encounter Care Teams Utilization Specialist Relationship Specialty Start Date End Date Lissy Gracia MD [address] [place] [address] PCP - General Family Medicine 06/07/21 Reinaldo Persaud RN [address] [place] [address] Furniture AssociateSap Bw Architect 11/05/24 documented as of this encounter
--- OUTSIDE RECORDS SUMMARY | 2024-12-09 10:20 | XMS_ITS | Encounter Summary ---
Author Organization [employer] Address [address] [facility] [address] [place] [address] Care Team Providers Care Blow Torch Operator Name Role Phone Lissy Gracia MD Primary Care Provider [phone] Reinaldo Persaud RN Unavailable [phone] Reason for Visit * Reason Comments Care Coordination C3 [facility] Ammy bruce telephone call outreach Encounter Details Date Type Department Care Team (Latest Contact Info) Description 12/06/2024 Patient Outreach [facility] MEDICINE [address] [place] [address] Lissy Gracia MD 230 [place] [address] Care Coordination [facility] telephone call outreach) Social History [...] encounter Progress Notes * Ammy Ziegler - 12/06/2024 10:52 AM EST CHW Ammy Ziegler placed outbound call to patient introducing herself from [facility] CM Department, in regard to remind patient of her [facility] Cardiology appt for 12/09/24@ 10:00AM. Patient's name and was confirmed. Patient is aware and confirmed will be available and has no barriers on attending this appointment. Patient verbalized understanding and agreed with plan. documented in this encounter Plan of Treatment Upcoming Encounters Date Type Department Care Team (Late st Contact Info) Description 2024 9:00 AM EST Office Visit [facility] ADULT DENTAL [address] [place] [address] Wendi Pedroza 12/16/2024 11:00 AM EST Office Visit [facility] MEDICINE [address] [place] [address] 12/16/2024 3:45 PM EST Office Visit [facility] MEDICINE [address] [place] [address] Lissy Gracia MD [address] [place] [address] documented as of this encounter Visit Diagnoses Not on filedocumented in this encounter Additional Health Concerns Assessment Noted Time PHQ-9 Depression Total Score: 0 02/05/20 24 1:47 PM EDT documented as of this encounter Care Teams Blow Torch Operator Relationship Specialty Start Date End Date Lissy Gracia MD [address] [place] [address] PCP - General Family Medicine 06/07/21 Reinaldo Persaud RN [address] [place] [address] Research And Insights ExecutiveBusiness Process Lead 11/05/24 documented as of this encounter
--- OUTSIDE RECORDS SUMMARY | 2024-12-09 10:20 | XMS_ITS | Encounter Summary ---
Author Organization [employer] Address [address] [facility] [address] 7t [place] [address] Care Team Providers Care Marketing Underwriter Name Role Phone Lissy Gracia MD Primary Care Provider [phone] Reinaldo Persaud RN Unavailable [phone] Reason for Visit * Reason Onset Date Comments Med Refill 06/20/2024 Encounter Details Date Type Department Care Team ([facility] st Contact Info) Description 06/20/2024 Telephone [facility] MEDICINE 230 [place] [address] Lissy Gracia MD 230 [place] [address] Med Refill Social History Tobacco Use Types [...] MG/0.5ML solution pen-injector To be sent to: [facility] [place], [place] - [address] [facility] documented in this encounter Plan of Treatment Upcoming Encounters Date Type Department Care Team (Late st Contact Info) Description 2024 9:00 AM EST Office Visit [facility] ADULT DENTAL [address] [place] [address] Wendi Pedroza 12/16/2024 11:00 AM EST Office Visit [facility] MEDICINE [address] [place] [address] 12/16/2024 3:45 PM EST Office Visit [facility] MED[facility]INE [address] [place] [address] Lissy Gracia MD [address] [place] [address] documented as of this encounter Visit Diagnoses Not on filedocumented in this encounter Additional Health Concerns Assessment Noted Time PHQ-9 Depression Total Score: 0 02/05/20 24 1:47 PM EDT documented as of this encounter Care Teams Marketing Underwriter Relationship Specialty Start Date End Date Lissy Gracia MD [address] [place] [address] PCP - General Family Medicine 06/07/21 Reinaldo Persaud, LILIANE [address] [place] [address] Rotary Derrick OperatorScaffold Erector 11/05/24 documented as of this encounter
--- OUTSIDE RECORDS SUMMARY | 2024-12-09 10:20 | XMS_ITS | Encounter Summary ---
Author Organization [employer] Address [address] [facility] [address] 7t [place] [address] Care Team Providers Care Director Of Materials Name Role Phone Lissy Gracia MD Primary Care Provider [phone] Reinaldo Persaud RN Unavailable [phone] Reason for Visit * Reason Comments Pre-visit Planning SDOH screening posit louie and tobacco screening negative Encounter Details Date Type Department Care Team ([facility] st Contact Info) Description 12/04/2024 Patient Outreach [facility] MED[facility]INE [address] [place] [address] Lissy Gracia MD 230 [place] [address] Pre-visit Planning (SDOH screening positive and tobacco screening negative) Social History Tobacco Use Types Packs/Day Years [...] as of this encounter Progress Notes * Jeannie Alicea - 12/04/2024 9:29 AM EST CC Jeannie placed successful outbound call to patient for pre-visit planning. Patient name and confirmed. Patient confirms date and time, and has transportation arrangements. Biggest concern for appointment at this time is none Appropriate screening completed in anticipation of appointment. Patient advised to bring to appointment a photo id and insurance card, SDLA positive. Patient looking for assistance with pest control Referral will be placed. documented in this encounter Plan of Treatment Upcoming Encounters Date Type Department Care Team (Late st Contact Info) Description 2024 9:00 AM EST Office Visit [facility] ADULT DENTAL [address] [place] [address] Wendi Pedroza 12/16/2024 11:00 AM EST Office Visit [facility] MEDICINE [address] [place], [place] [phone] 12/16/2024 3:45 PM EST Office Visit [facility] [address] [place], [place] [phone] Lissy Gracia MD [address] [place], [place] [phone] documented as of this encounter Visit Diagnoses Not on filedocumented in this encounter Additional Health Concerns Assessment Noted Time PHQ-9 Depression Total Score: 0 02/05/20 24 1:47 PM EDT documented as of this encounter Care Teams Director Of Materials Relationship Specialty Start Date End Date Lissy Gracia MD [address] [place], [place] [phone] PCP - General Family Medicine 06/07/21 Reinaldo Persaud, LILIANE [address] [place] [address] Healthcare AdministratorBattery Loader 11/05/24 documented as of this encounter
--- OUTSIDE RECORDS SUMMARY | 2024-12-09 10:20 | XMS_ITS | Encounter Summary ---
Author Organization [employer] Address [address] [facility] [address] 7t [place] [address] Care Team Providers Care Group Manager Name Role Phone Lissy Gracia MD Primary Care Provider [phone] Reinaldo Persaud RN Unavailable [phone] Encounter Details Date Type Department Care Team (Latest Contact Info) Description 12/05/2024 Travel Social History Tobacco Use Types Packs/Day [...] Description 2024 9:00 AM EST Office Visit [facility] ADULT DENTAL [address] [place] [address] Wendi Pedroza 12/16/2024 11:00 AM EST Office Visit [facility] MEDICINE [address] [place] [address] 12/16/2024 3:45 PM EST Office Visit [facility] MEDICINE [address] [place] [address] Lissy Gracia MD [address] [place] [address] documented as of this encounter Visit Diagnoses Not on filedocumented in this encounter Additional Health Concerns Assessment Noted Time PHQ-9 Depression Total Score: 0 02/05/20 24 1:47 PM EDT documented as of this encounter Care Teams Group Manager Relationship Specialty Start Date End Date Lissy Gracia MD [address] [place] [address] PCP - General Family Medicine 06/07/21 Reinaldo Persaud RN [address] [place] [address] Production Team LeaderGravel Machine Operator 11/05/24 documented as of this encounter
--- OUTSIDE RECORDS SUMMARY | 2024-12-09 10:20 | XMS_ITS | Encounter Summary ---
Author Organization [employer] Address [address] [facility] [address] 7t [place] [address] Care Team Providers Care Director Of Public Safety Name Role Phone Lissy Gracia MD Primary Care Provider [phone] Reinaldo Persaud RN Unavailable [phone] Reason for Visit * Reason Onset Date Comments Care Management 11/29/2024 C3CM- f/u call Encounter Details Date Type Department Care Team ([facility] st Contact Info) Description 11/29/2024 Telephone [facility] MEDICINE [address] [place] [address] Lissy Gracia MD [address] [place] [address] Care Management (C3CM- f/u call) Social History [...] Encounter - Reinaldo Persaud RN - 11/29/2024 12:14 PM EST CM Reinaldo Persaud RN placed outbound call to patient. Patient's name, and address confirmed. Patient states is doing well with no recent illnesses or emergency room visits. Patient states respiratory symptoms have improved. She states she saw Pulmonology on 11/24. Per patient, visit went well. She is scheduled to f/u with Pulmonology on 12/23/24 at 3:45pm. Patient states she completed blood workthat was ordered by PCP. She states PCP reviewed the results with her during the visit on 11/26. Perpatient, was then contacted by the office but was unable to answer the call as she was at an important appt with her mother. She states she is not sure if the call came from [facility]. Patient has not called the office back stating she is waiting for the call to be returned to her. She then states she will just follow up with PCP as scheduled on 12/16 and will inquire then. Patient missed visit with Dr. Garcia on 11/27 due to issues with transportation. She states she will call the office to reschedule. CM provided her with the office number and advised that she please return call to with appt details so that PT1 can be arranged. She agrees. Patient also missed visit with ORTHODONTIC LAB TECHNICIAN on 11/27. Visit rescheduled to 12/19/24 at 1:15pm. Patient is aware of her scheduled visit with Cardiology on 12/09/24 at 10:00am. CM also noted patient is scheduled at [facility] on 12/09 at 11:00am. Patient agreeableto CM sending message to team to r/s the visit with Pain Clinic. Per patient, blood sugars and blood pressure have been well controlled. She reports taking all medications as directed and denies any concerns. She states she is doing well emotionally and denies any symptoms/concerns/ or needs at this time. No further questions or concerns. CM reinforced direct contact information for any additional questions or concerns. Education provided on [facility]In Urgent Care located in [facility] of [facility]. Patient provided with after-hours line for [facility], , which offer night time triage service and option to transfer to java integration developer provider if needed. Patient verbalizes understanding, and able to r epeat back to proposal lead writer. A follow up call will be placed within 10 days, patient agrees with plan. documented in this encounter Plan of Treatment Upcoming Encounters Date Type Department Care Team (Late st Contact Info) Description 2024 9:00 AM EST Office Visit [facility] ADULT DENTAL [address] [place] [address] Wendi Pedroza 12/16/2024 11:00 AM EST Office Visit [facility] MEDICINE [address] [place] [address] 12/16/2024 3:45 PM EST Office Visit [facility] MED[facility]INE [address] [place] [address] Lissy Gracia MD [address] [place] [address] documented as of this encounter Visit Diagnoses Not on filedocumented in this encounter Additional Health Concerns Assessment Noted Time PHQ-9 Depression Total Score: 0 02/05/20 24 1:47 PM EDT documented as of this encounter Care Teams Director Of Public Safety Relationship Specialty Start Date End Date Lissy Gracia MD [address] [place], [place] [phone] PCP - General Family Medicine 06/07/21 Reinaldo Persaud RN [address] [place] [address] Manufacturing Applications EngineerSpecial Warfare Combatant Crewman 11/05/24 documented as of this encounter
--- OUTSIDE RECORDS SUMMARY | 2024-12-09 10:20 | XMS_ITS | Encounter Summary ---
Author Organization [employer] Address [address] [facility] [address] 7t [place] [address] Care Team Providers Care Test Grader Name Role Phone Lissy Gracia MD Primary Care Provider [phone] Reinaldo Persaud RN Unavailable [phone] Encounter Details Date Type Department Care [...] Description 2024 9:00 AM EST Office Visit [facility] ADULT DENTAL [address] [place] [address] Wendi Pedroza 12/16/2024 11:00 AM EST Office Visit [facility] MEDICINE [address] [place] [address] 12/16/2024 3:45 PM EST Office Visit [facility] [address] [place] [address] Lissy Gracia MD [address] [place] [address] documented as of this encounter Visit Diagnoses Not on filedocumented in this encounter Additional Health Concerns Assessment Noted Time PHQ-9 Depression Total Score: 0 02/05/20 24 1:47 PM EDT documented as of this encounter Care Teams Test Grader Relationship Specialty Start Date End Date Lissy Gracia MD [address] [place] [address] PCP - General Family Medicine 06/07/21 Reinaldo Persaud RN [address] [place] [address] Assembler Latches And SpringsDrug And Alcohol Treatment Specialist 11/05/24 documented as of this encounter
--- OUTSIDE RECORDS SUMMARY | 2024-12-09 10:20 | XMS_ITS | Encounter Summary ---
Author Organization [employer] Address [address] [facility] [address] 7t [place] [address] Care Team Providers Care Windows Architect Name Role Phone Lissy Gracia MD Primary Care Provider [phone] Reinaldo Persaud RN Unavailable [phone] Encounter Details Date Type Department Care Team (Latest Contact Info) Description 12/04/2024 Travel Social History Tobacco Use Types Packs/Day [...] Description 2024 9:00 AM EST Office Visit [facility] ADULT DENTAL [address] [place] [address] Wendi Pedroza 12/16/2024 11:00 AM EST Office Visit [facility] MEDICINE [address] [place] [address] 12/16/2024 3:45 PM EST Office Visit [facility] MED[facility]INE [address] [place] [address] Lissy Gracia MD [address] [place] [address] documented as of this encounter Visit Diagnoses Not on filedocumented in this encounter Additional Health Concerns Assessment Noted Time PHQ-9 Depression Total Score: 0 02/05/20 24 1:47 PM EDT documented as of this encounter Care Teams Windows Architect Relationship Specialty Start Date End Date Lissy Gracia MD [address] [place] [address] PCP - General Family Medicine 06/07/21 Reinaldo Persaud RN [address] [place] [address] Specialty Food Products SupervisorRug Cutter 11/05/24 documented as of this encounter
--- OUTSIDE RECORDS SUMMARY | 2024-12-09 10:20 | XMS_ITS | Encounter Summary ---
Author Organization [facility] Address [address] [facility] [address] 7t [place] [address] Care Team Providers Care Cargo And Container Inspector Name Role Phone Lissy Gracia MD Primary Care Provider [phone] Reinaldo Persaud RN Unavailable Reason for Visit * Reason Comments Med Refill Encounter Details Date Type Department Care Team ([facility] st Contact Info) Description 12/09/2024 Refill [facility] MED[facility] [address] [place] [address] Lissy Gracia MD 230 [place] [address] Allergic rhinitis, unspecified seasonality, unspecified trigger Social History Tobacco Use Types Packs/Day Years [...] Description 2024 9:00 AM EST Office Visit [facility] ADULT DENTAL [address] [place] [address] Wendi Pedroza 12/16/2024 11:00 AM EST Office Visit [facility] MED[facility]INE [address] [place] [address] 12/16/2024 3:45 PM EST Office Visit [facility] [address] [place] [address] Lissy Gracia MD [address] [place] [address] documented as of this encounter Visit Diagnoses Diagnosis Allergic rhinitis, unspecified seasonality, unspecified trigger documented in this encounter Additional Health Concerns Assessment Noted Time PHQ-9 Depression Total Score: 0 02/05/20 24 1:47 PM EDT documented as of this encounter Care Teams Cargo And Container Inspector Relationship Specialty Start Date End Date Lissy Gracia MD [address] [place] [address] PCP - General Family Medicine 06/07/21 Reinaldo Persaud RN [address] [place] [address] Textile Conversion ManagerAssociate Professor Of Kinesiology 11/05/24 documented as of this encounter
--- OUTSIDE RECORDS SUMMARY | 2024-12-09 10:20 | XMS_ITS | Encounter Summary ---
Author Organization [employer] Address [address] [facility] [address] 7t [place] [address] Care Team Providers Care Humanities Instructor Name Role Phone Lissy Gracia MD Primary Care Provider [phone] Reinaldo Persaud RN Unavailable [phone] Encounter Details Date Type Department Care Team (Latest Contact Info) Description 12/03/2024 Travel Social History Tobacco Use Types Packs/Day [...] 2024 9:00 AM EST Office Visit [facility] ADULT DENTAL [address] [place] [address] Wendi Pedroza 12/16/2024 11:00 AM EST Office Visit [facility] [address] [place] [address] 12/16/2024 3:45 PM EST Office Visit [facility] [address] [place] [address] Lissy Gracia MD [address] [place] [address] documented as of this encounter Visit Diagnoses Not on filedocumented in this encounter Additional Health Concerns Assessment Noted Time PHQ-9 Depression Total Score: 0 02/05/20 24 1:47 PM EDT documented as of this encounter Care Teams Humanities Instructor Relationship Specialty Start Date End Date Lissy Gracia MD [address] [place] [address] PCP - General Family Medicine 06/07/21 Reinaldo Persaud RN 505 [place] [address] Awake Overnight MonitorNursing Unit Clerk 11/05/24 documented as of this encounter
--- OUTSIDE RECORDS SUMMARY | 2024-12-09 10:20 | XMS_ITS | Encounter Summary ---
Author Organization [employer] Address [address] [facility] [address] 7t [place] [address] Care Team Providers Care Nut Steamer Name Role Phone Lissy Gracia MD Primary Care Provider [phone] Reinaldo Persaud RN Unavailable [phone] Reason for Visit * Reason Comments Acupuncture Encounter Details Date Type Department Care Team ([facility] st Contact Info) Description 11/12/2024 1:15 PM EST Office Visit [facility] MEDICINE [address] [place] [address] Lissy Gracia MD 230 [place] [address] Chronic migraine without aura without status migrainosus, [...] Description 2024 9:00 AM EST Office Visit [facility] ADULT DENTAL [address] [place] [address] Wendi Pedroza 12/16/2024 11:00 AM EST Office Visit [facility] MEDICINE [address] [place] [address] [phone] 12/16/2024 3:45 PM EST Office Visit [address] [address] Lissy Gracia MD [address] [place] [address] documented as of this encounter Visit Diagnoses Diagnosis Chronic migraine without aura without status migrainosus, not intractable- Primary documented in this encounter Additional Health Concerns Assessment Noted Time PHQ-9 Depression Total Score: 0 02/05/20 24 1:47 PM EDT documented as of this encounter Care Teams Nut Steamer Relationship Specialty Start Date End Date Lissy Gracia MD [address] [place] [address] PCP - General Family Medicine 06/07/21 Reinaldo Persaud, LILIANE 505 [place] [address] District RecruiterNaval Architect Specialist 11/05/24 documented as of this encounter
--- OUTSIDE RECORDS SUMMARY | 2024-12-09 10:20 | XMS_ITS | Encounter Summary ---
Author Organization [employer] Address [address] [facility] [address] 7t [place] [address] Care Team Providers Care Personal Security Specialist Name Role Phone Lissy Gracia MD Primary Care Provider [phone] Reinaldo Persaud RN Unavailable [phone] Reason for Visit * Reason Comments Med Refill Encounter Details Date Type Department Care Team ([facility] st Contact Info) Description 12/05/2024 Refill [facility] 230 [place] [address] Roscoe Alfaro MD [address] [place] [address] Social History Tobacco Use Types Packs/Day Years [...] the past 12 months, has t he [employer], gas, oil or water [employer] threatened to shut off services in your [...] Description 2024 9:00 AM EST Office Visit [facility] ADULT DENTAL [address] [place] [address] Wendi Pedroza 12/16/2024 11:00 AM EST Office Visit [facility] MED[facility]INE [address] [place] [address] 12/16/2024 3:45 PM EST Office Visit [facility] [address] [place] [address] Lissy Gracia MD [address] [place] [address] documented as of this encounter Visit Diagnoses Not on filedocumented in this encounter Additional Health Concerns Assessment Noted Time PHQ-9 Depression Total Score: 0 02/05/20 24 1:47 PM EDT documented as of this encounter Care Teams Personal Security Specialist Relationship Specialty Start Date End Date Lissy Gracia MD [address] [place] [address] PCP - General Family Medicine 06/07/21 Reinaldo Persaud RN [address] [place] [address] [place] [address] Reroller HandArbor End Mainspring Former 11/05/24 documented as of this encounter
--- OUTSIDE RECORDS SUMMARY | 2024-12-09 10:20 | XMS_ITS | Encounter Summary ---
Author Organization [employer] Address [address] [facility] [address] 7t [place] [address] Care Team Providers Care Fretted Instrument Repairer Name Role Phone Lissy Gracia MD Primary Care Provider [phone] Reinaldo Persaud RN Unavailable [phone] Reason for Visit * Reason Comments Care Coordination [facility] Ammy bruce telephone call outreach Encounter Details Date Type Department Care Team (Latest Contact Info) Description 11/18/2024 Patient Outreach [facility] MEDICINE 230 [place] [address] Lissy Gracia MD [address] [place] [address] Care Coordination ([facility] Ziegler telephone call outreach) Social History Tobacco [...] outbound call to patient introducing herself from [facility] CM Department, in regard to remind [...] 9:00 AM EST Office Visit [facility] ADULT DENTAL [address] [place] [address] Wendi Pedroza 12/16/2024 11:00 AM EST Office Visit [facility] MEDICINE [address] [place] [address] 12/16/2024 3:45 PM EST Office Visit [facility] MEDICINE [address] [place] [address] Lissy Gracia MD [address] [place] [address] documented as of this encounter Visit Diagnoses Not on filedocumented in this encounter Additional Health Concerns Assessment Noted Time PHQ-9 Depression Total Score: 0 02/05/20 24 1:47 PM EDT documented as of this encounter Care Teams Fretted Instrument Repairer Relationship Specialty Start Date End Date Lissy Gracia MD [address] [place] [address] 8[address] PCP - General Family Medicine 06/07/21 Reinaldo Persaud RN [address] [place] [address] Mortgage ProcessorCommunications Instructor 11/05/24 documented as of this encounter
--- OUTSIDE RECORDS SUMMARY | 2024-12-09 10:20 | XMS_ITS | Encounter Summary ---
Author Organization [employer] Address [address] [facility] [address] 7t [place] [address] Care Team Providers Care Home Theater Experience Expert Name Role Phone Lissy Gracia MD Primary Care Provider [phone] Reinaldo Persaud RN Unavailable [phone] Reason for Visit * Reason Comments Acupuncture Encounter Details Date Type Department Care Team ([facility] st Contact Info) Description 12/03/2024 9:45 AM EST Office Visit [facility] MEDICINE 230 [place] [address] Irene Singletary MD 230 [place] [address] Chronic migraine without aura without status migrainosus, [...] Progress Notes * Irene Singletary MD - 12/03/2024 9:45 AM EST Subjective Patient ID: Irene Flower [...] Description 2024 9:00 AM EST Office Visit [facility] ADULT DENTAL [address] [place] [address] Wendi Pedroza 12/16/2024 11:00 AM EST Office Visit [facility] MEDICINE [address] [place] [address] 12/16/2024 3:45 PM EST Office Visit [facility] MEDICINE [address] [place] [address] Lissy Gracia MD 230 [place] [address] documented as of this encounter Visit Diagnoses Diagnosis Chronic migraine without aura without status migrainosus, not intractable- Primary Anxiety Anxiety state, unspecified documented in this encounter Additional Health Concerns Assessment Noted Time PHQ-9 Depression Total Score: 0 02/05/20 24 1:47 PM EDT documented as of this encounter Care Teams Home Theater Experience Expert Relationship Specialty Start Date End Date Lissy Gracia MD 230 [place] [address] PCP - General Family Medicine 06/07/21 Reinaldo Persaud RN [address] [place] [address] Car RepossessorRecycling Sorter 11/05/24 documented as of this encounter
--- OUTSIDE RECORDS SUMMARY | 2024-12-09 10:21 | XMS_ITS | Encounter Summary ---
Author Organization [employer] Address [address] [facility] [address] 7t [place] [address] Care Team Providers Care Community Health Advisor Name Role Phone Lissy Gracia MD Primary Care Provider [phone] Reinaldo Persaud RN Unavailable [phone] Reason for Visit * Reason Comments Care Coordination [facility] Ammy bruce telephone call outreach Encounter Details Date Type Department Care Team (Latest Contact Info) Description 11/26/2024 Patient Outreach [facility] MEDICINE [address] [place] [address] Lissy Gracia MD [address] [place] [address] Care Coordination ([facility] Ziegler telephone call outreach) Social [...] encounter Progress Notes * Ammy Ziegler - 11/26/2024 11:51 AM EST CHW Ammy Ziegler placed outbound call to patient introducing herself from [facility] CM Department, in regard to remind patient of General Surgery appt for 11/27/24 @ 11:00AM. Patient's nameand was confirmed. Patient is aware and confirmed will be available and has no barriers on attending this appointment. Patient verbalized understanding and agreed with plan. documented in this encounter Plan of Treatment Upcoming Encounters Date Type Department Care Team (Late st Contact Info) Description 2024 9:00 AM EST Office Visit [facility] ADULT DENTAL [address] [place] [address] Wendi Pedroza 12/16/2024 11:00 AM EST Office Visit [facility] MEDICINE [address] [place] [address] 12/16/2024 3:45 PM EST Office Visit [facility] MEDICINE [address] [place] [address] Lissy Gracia MD [address] [place] [address] documented as of this encounter Visit Diagnoses Not on filedocumented in this encounter Additional Health Concerns Assessment Noted Time PHQ-9 Depression Total Score: 0 02/05/20 24 1:47 PM EDT documented as of this encounter Care Teams Community Health Advisor Relationship Specialty Start Date End Date Lissy Gracia MD [address] [place] [address] PCP - General Family Medicine 06/07/21 Reinaldo Persaud RN [address] [place] [address] Aerospace ManagerTobacco Farmworker 11/05/24 documented as of this encounter
--- OUTSIDE RECORDS SUMMARY | 2024-12-09 10:21 | XMS_ITS | Encounter Summary ---
Author Organization [employer] Address [address] [facility] [address] 7t [place] [address] Care Team Providers Care Silo Erector Name Role Phone Lissy Gracia MD Primary Care Provider [phone] Reinaldo Persaud RN Unavailable [phone] Reason for Visit * Reason Comments Scaling And Root Planing UL, LL Encounter Details Date Type Department Care Team (Late st Contact Info) Description 11/28/2024 9:00 AM EST Office Visit [facility] ADULT DENTAL 230 [place] [address] Wendi Pedroza Dental calculus (Primary Dx); Dental plaque; Subgingival dental calculus Social History Tobacco Use Types Packs/Day Years [...] the past 12 months, has t he [employer], gas, oil or water [employer] threatened to shut off services in your [...] Pressure 128/82 11/28/2024 10:39 AM EST Pulse - - Temperature - - Respiratory Rate - - Oxygen Saturation - - Inhaled Oxygen Concentration - - Weight - - Height - - Body Mass Index - - documented in this encounter Progress Notes * Wendi Pedroza - 11/28/2024 9:00 AM EST Patient ID: Irene Flower is a 48 y.o. female. Time Out: Timeout Date: 11/28/24, Timeout Time: 910 (Dental SRP Adult) Location: [facility] Tooth: UL and LL Procedure: Scaling and Root Planing Verified the above with patient, assistant strength coach, and provider. Confirmed via patient's chart, intraorally and by radiographs. Automation Consultant: not applicable Medical Hx: Vitals: There were no vitals taken for this visit. Medications, Med Hx reviewed with patient and updated in chart. Treatment Provided Dental procedures in this visit D4342 - PERIODONTAL SCALING AND ROOT PLANING - 1 TO 3 TEETH PER QUADRANT UL (Completed) Service provider: Wendi Pedroza Billing provider: Romina Frank DDS D4342 - PERIODONTAL SCALING AND ROOT PLANING - 1 TO 3 TEETH PER QUADRANT LL (Completed) Service provider: Wendi Pedroza Billing provider: Romina Frank DDS D1330 - ORAL HYGIENE INSTRUCTIONS (Completed) Service provider: Wendi Pedroza Billing provider: Romina Frank DDS D9450 - CASE PRESENTATION, DETAILED AND EXTENSIVE TREATMENT PLANNING (Completed) Service provider: Wendi Pedroza Billing provider: Romina Frank DDS Topical: 20% Benzocaine Anesthesia: 2% Lidocaine (Xylocaine) w/ 1:100,000 epinephrine Number of Cartridges: 2 Injection Type: Inferior alveolar nerve block, Long buccal nerve block, Anterior superior alveolar nerve block, Middle superior alveolar nerve block, and Posterior superior alveolar nerve block Confirmed profound anesthesia. Oral Cancer Screening: No lesions Head/Neck Exam: No Lesions Instruments Used: Ultrasonic Scalers, Hand Scalers, and floss Fluoride: N/A Calculus: Moderate, Generalized, and Subgingival Plaque: Light and Generalized Stain: None Bleeding: Light and Generalized Gingiva: Erythematous and Inflamed [place]: Poor Oral hygiene instructions provided to patient including brushing technique and flossing. Recommendations: [place] two times daily, modified briceno technique, Floss daily, Electric toothbrush, Soft bristle toothbrush, [place] Tongue, Anti-sensitivity toothpaste Recall Frequency: 3 mo NV: 3mrc Hygienist: Wendi Pedroza RDH * Romina Frank DDS - 11/28/2024 9:00 AM EST I have reviewed the documentation and dental procedures made by the rendering provider, Wendi Pedroza RDH , and approve their chart entries for this visit. Romina Frank DDS documented in this encounter Plan of Treatment Upcoming Encounters Date Type Department Care Team (Late st Contact Info) Description 2024 9:00 AM EST Office Visit [facility] ADULT D[facility] [address] [place] [address] Wendi Pedroza 12/16/2024 11:00 AM EST Office Visit [facility] MEDICINE [address] [place] [address] 12/16/2024 3:45 PM EST Office Visit [address] [address] Lissy Gracia MD [address] [place] [address] documented as of this encounter Procedures Procedure Name Priority Date/Time Associated Diagnosis Comments LL PERIODONTAL SCALING AND ROOT PLANING - [...] Dental calculus Dental plaque Subgingival dental calculus CASE PRESENTATION, DETAILED AND EXTENSIVE TREATMENT PLANNING Routine 11/28/2024 9:00 AM EST documented in this encounter Visit Diagnoses Diagnosis Dental calculus- Primary Accretions on teeth Dental plaque Accretions on teeth Subgingival dental calculus Accretions on teeth documented in this encounter Additional Health Concerns Assessment Noted Time PHQ-9 Depression Total Score: 0 02/05/20 24 1:47 PM EDT documented as of this encounter Care Teams Silo Erector Relationship Specialty Start Date End Date Lissy Gracia MD [address] [place] [address] PCP - General Family Medicine 06/07/21 Reinaldo Persaud RN [address] [place] [address] [employer] Reading TeacherLinecasting Machine Keyboard Operator 11/05/24 documented as of this encounter
--- OUTSIDE RECORDS SUMMARY | 2024-12-09 10:21 | XMS_ITS | Encounter Summary ---
Author Organization [employer] Address [address] [facility] [address] 7t [place] [address] Care Team Providers Care First Assist Name Role Phone Lissy Gracia MD Primary Care Provider [phone] Reinaldo Persaud RN Unavailable [phone] Reason for Visit * Reason Onset Date Comments Pain group 11/26/2024 Encounter Details Date Type Department Care Team ([facility] st Contact Info) Description 11/26/2024 Telephone [facility] MEDICINE [address] [place] [address] [place], [place] Pain group Social History Tobacco Use Types Packs/Day Years [...] Telephone Encounter - Susana Casillas [place] - 11/26/2024 1:55 PM EST T/c placed to schedule pt for pain group. Pt agreed to come in on 12/09/24 at 11am documented in this encounter Plan of Treatment Upcoming Encounters Date Type Department Care Team (Late st Contact Info) Description 2024 9:00 AM EST Office Visit [facility] ADULT DENTAL [address] [place] [address] Wendi Pedroza 12/16/2024 11:00 AM EST Office Visit [facility] MEDICINE [address] [place] [address] 12/16/2024 3:45 PM EST Office Visit [facility] MEDICINE [address] [place] [address] Lissy Gracia MD [address] [place] [address] documented as of this encounter Visit Diagnoses Not on filedocumented in this encounter Additional Health Concerns Assessment Noted Time PHQ-9 Depression Total Score: 0 02/05/20 24 1:47 PM EDT documented as of this encounter Care Teams First Assist Relationship Specialty Start Date End Date Lissy Gracia MD [address] [place] [address] PCP - General Family Medicine 06/07/21 Reinaldo Persaud RN [address] [place] [address] Tail End RiderOverlock Collar Setter 11/05/24 documented as of this encounter
--- OUTSIDE RECORDS SUMMARY | 2024-12-09 10:21 | XMS_ITS | Encounter Summary ---
Author Organization [employer] Address [address] [facility] [address] 7t [place] [address] Care Team Providers Care Head Of Digital Name Role Phone Lissy Gracia MD Primary Care Provider [phone] Reinaldo Persaud RN Unavailable [phone] Encounter Details Date Type Department Care [...] 2024 9:00 AM EST Office Visit [facility] ADULT DENTAL [address] [place] [address] Wendi Pedroza 12/16/2024 11:00 AM EST Office Visit [facility] MEDICINE [address] [place] [address] 12/16/2024 3:45 PM EST Office Visit [facility] MEDICINE [address] [place] [address] Lissy Gracia MD [address] [place] [address] documented as of this encounter Visit Diagnoses Not on filedocumented in this encounter Additional Health Concerns Assessment Noted Time PHQ-9 Depression Total Score: 0 02/05/20 24 1:47 PM EDT documented as of this encounter Care Teams Head Of Digital Relationship Specialty Start Date End Date Lissy Gracia MD [address] [place] [address] PCP - General Family Medicine 06/07/21 Reinaldo Persaud RN [address] [place] [address] Iron Worker ApprenticeMarine Erector 11/05/24 documented as of this encounter
--- OUTSIDE RECORDS SUMMARY | 2024-12-09 10:21 | XMS_ITS | Encounter Summary ---
Author Organization [employer] Address [address] [facility] [address] 7t [place] [address] Care Team Providers Care Bench Assembler Name Role Phone Lissy Gracia MD Primary Care Provider [phone] Reinaldo Persaud RN Unavailable Encounter Details Date Type Department Care Team ([facility] st Contact Info) Description 11/26/2024 1:15 PM EST Office Visit [facility] MED[facility]INE [address] [place] [address] Lissy Gracia MD 230 [place] [address] Fibromyalgia (Primary Dx); Chronic migraine without aura [...] t he electric, gas, oil or water [employer] threatened to shut off services in your [...] Progress Notes * Lissy Gracia MD - 11/26/2024 1:15 PM EST Subjective Patient ID: Irene Flower is a 48 y.o. female who presents for Acupuncture. Irene is here for ongoing acupuncture treatments for anxiety and migraine [place]. She is feeling better with decreased pain and stress. Her ears have been hurting her though, and the left ear has some bleeding (some at sites of prior bleeding, some not) Review of Systems Constitutional: Negative. HENT: Positive for congestion. Respiratory: Positive for cough and shortness of breath. Cardiovascular: Negative. Gastrointestinal: Negative. Musculoskeletal: Positive for arthralgias. Objective Physical Exam Constitutional: Appearance: Normal appearance. Skin: General: Skin is warm and dry. Neurological: Mental Status: She is alert and oriented to person, place, and time. Latest Reference Range & Units 11/25/24 09:40 Ferritin 10 - 250 ng/mL 22 Immature Retic Fraction 3.0 - 15.9 % 15.0 Retic HGB Equivalent 30.0 - 35.0 pg 27.9 (L) Reticulocyte Percent 0.5 - 1.8 % 1.4 Reticulocytes Absolute 0.026 - 0.095 X10*6/uL 0.072 Assessment/Plan Diagnoses and all orders for this [...] Description 2024 9:00 AM EST Office Visit [facility] ADULT DENTAL [address] [place] [address] Wendi Pedroza 12/16/2024 11:00 AM EST Office Visit [facility] MEDICINE [address] [place] [address] 12/16/2024 3:45 PM EST Office Visit [address] [address] Lissy Gracia MD [address] [place] [address] documented as of this encounter Visit Diagnoses Diagnosis Fibromyalgia- Primary Unspecified myalgia and myositis Chronic migraine without aura without status migrainosus, not intractable documented in this encounter Additional Health Concerns Assessment Noted Time PHQ-9 Depression Total Score: 0 02/05/20 24 1:47 PM EDT documented as of this encounter Care Teams Bench Assembler Relationship Specialty Start Date End Date Lsisy Gracia MD [address] [place] [address] PCP - General Family Medicine 06/07/21 Reinaldo Persaud RN [address] [place] [address] Accounting ProfessorDrug Department Worker 11/05/24 documented as of this encounter
--- OUTSIDE RECORDS SUMMARY | 2024-12-09 10:21 | XMS_ITS | Encounter Summary ---
Author Organization [employer] Address [address] [facility] [address] 7t [place] [address] Care Team Providers Care Ambulatory Care Coordinator Name Role Phone Lissy Gracia MD Primary Care Provider [phone] Reinaldo Persaud RN Unavailable [phone] Encounter Details Date Type Department Care Team (Latest Contact Info) Description 11/26/2024 Travel Social History Tobacco Use Types Packs/Day [...] Visit [facility] ADULT DENTAL [address] [place] [address] Wendi Pedroza 12/16/2024 11:00 AM EST Office Visit [facility] MEDICINE [address] [place] [address] 12/16/2024 3:45 PM EST Office Visit [facility] MEDICINE [address] [place] [address] Lissy Gracia MD [address] [place] [address] documented as of this encounter Visit Diagnoses Not on filedocumented in this encounter Additional Health Concerns Assessment Noted Time PHQ-9 Depression Total Score: 0 02/05/20 24 1:47 PM EDT documented as of this encounter Care Teams Ambulatory Care Coordinator Relationship Specialty Start Date End Date Lissy Gracia MD [address] [place] [address] PCP - General Family Medicine 06/07/21 Reinaldo Persaud RN [address] [place] [address] Quality Assurance EngineerProduct Accountant 11/05/24 documented as of this encounter
--- OUTSIDE RECORDS SUMMARY | 2024-12-09 10:21 | XMS_ITS | Encounter Summary ---
Author Organization [employer] [facility] Address [address] [facility] [address] 7t [place] [address] Care Team Providers Care Line Welder Name Role Phone Lissy Gracia MD Primary Care Provider [phone] Reinaldo Persaud RN Unavailable Reason for Visit * Reason Comments Transition Of Care (Tcm) Encounter Details Date Type Department Care Team ([facility] st Contact Info) Description 11/19/2024 Patient Outreach [facility] MEDICINE [address] [place] [address] Lisys Gracia MD 230 [place] [address] Transition Of Care (Tcm) Social History Tobacco [...] Date of Discharge 11/18/24 (9:17 pm) Facility [facility] Diagnosis N/A Disposition Discharged Home * Anitha Reed RN - 11/19/2024 10:33 AM EST Transition of Care Note Irene is going through a recent transition of care. Hospital Discharges and Admission for [facility] Type of Visit: Emergency Department Date of Admission/Visit: 11/18/24 Date of Discharge: 11/18/24 Facility: [facility] Diagnosis: N/A Disposition: Left Without Being Seen Follow-Up Actions Follow-Up Needed: None/self-monitoring Follow-Up Outcome: Spoke to Patient Initial Contact Date: 11/19/24 The full discharge summary does not exist d/t patient LWBS. Recent Visits Date Type Provider Dept 11/18/24 Office Visit Irene Singletary MD [facility] Medicine 11/14/24 Office Visit Candice Moreland, DO [facility] 11/12/24 Office Visit Lissy Gracia MD [facility] Medicine 11/11/24 Office Visit Irene Singletary MD [facility] Medicine 11/11/24 Office Visit Lissy Gracia MD [facility] Medicine 11/07/24 Office Visit Candice Moreland, DO [facility] 11/07/24 Office Visit Irene Singletary MD [facility] Medicine 11/05/24 Office Visit Lissy Gracia MD [facility] Medicine 10/31/24 Office Visit Irene Singletary MD [facility] Medicine 10/29/24 Office Visit Rosana Cotton MD [facility] Showing recent visits within past 540 days with a meds authorizing provider and meeting all other requirements Future Appointments Date Type Provider Dept 12/16/24 Appointment Lissy Gracia MD [facility] Medicine Showing future appointments within next 150 days with a meds authorizing provider and meeting all other requirements TC placed to patient [phone] to status check. Patient reports she went to the ED d/t an anxiety attack. Patient reports she was at the ER for >5 hours and was not called back therefore she left. Patient confirms she has a psychiatrist (Selina Campbell) and a therapist (Aissatou) at [facility].Patient reports she called this morning and informed them of her anxiety attack. Patient is NOT SOB during call and denies any chest pain. Patient advised to come to [facility] or ED if she develops chest pain or SOB. Patient verbalized understanding. Patient to f/u PRN. documented in this encounter Plan of Treatment Upcoming Encounters Date Type Department Care Team (Late st Contact Info) Description 2024 9:00 AM EST Office Visit [facility] ADULT DENTAL [address] [place] [address] Wendi Pedroza 12/16/2024 11:00 AM EST Office Visit [facility] MEDICINE [address] [place] [address] 12/16/2024 3:45 PM EST Office Visit [facility] MEDICINE [address] [place] [address] Lissy Gracia MD [address] [place] [address] documented as of this encounter Visit Diagnoses Not on filedocumented in this encounter Additional Health Concerns Assessment Noted Time PHQ-9 Depression Total Score: 0 02/05/20 24 1:47 PM EDT documented as of this encounter Care Teams Line Welder Relationship Specialty Start Date End Date Lissy Gracia MD [address] [place] [address] PCP - General Family Medicine 06/07/21 Reinaldo Persaud RN [address] [place] [address] Tenter Frame OperatorFire Extinguisher Repairer Inspector 11/05/24 documented as of this encounter
--- OUTSIDE RECORDS SUMMARY | 2024-12-09 10:21 | XMS_ITS | Encounter Summary ---
Author Organization [employer] Address [address] [facility] [address]t [place] [address] Care Team Providers Care Store Lead Name Role Phone Lissy Gracia MD Primary Care Provider [phone] Reinaldo Persaud RN Unavailable [phone] Reason for Visit * Reason Comments Med Refill Encounter Details Date Type Department Care Team ([facility] st Contact Info) Description 11/19/2024 Refill [facility] MEDICINE 230 [place] [address] Lissy Gracia MD 230 [place] [address] Social History Tobacco Use Types Packs/Day Years [...] the past 12 months, has t he [employer], gas, oil or water company threatened to [...] Description 2024 9:00 AM EST Office Visit [facility] ADULT DENTAL [address] [place] [address] Wendi Pedroza 12/16/2024 11:00 AM EST Office Visit [facility] MEDICINE [address] [place] [address] 12/16/2024 3:45 PM EST Office Visit [facility] MEDICINE [address] [place] [address] Lissy Gracia MD [address] [place] [address] documented as of this encounter Visit Diagnoses Not on filedocumented in this encounter Additional Health Concerns Assessment Noted Time PHQ-9 Depression Total Score: 0 02/05/20 24 1:47 PM EDT documented as of this encounter Care Teams Store Lead Relationship Specialty Start Date End Date Lissy Gracia MD [address] [place] [address] PCP - General Family Medicine 06/07/21 Reinaldo Persaud RN [address] [place], [place] [address] [address] Dry Kiln FeederCableman 11/05/24 documented as of this encounter
--- OUTSIDE RECORDS SUMMARY | 2024-12-09 10:21 | XMS_ITS | Encounter Summary ---
Author Organization [employer] Address [address] [facility] [address] 7t [place] [address] Care Team Providers Care Electroplating Technician Name Role Phone Lissy Gracia MD Primary Care Provider [phone] Reinaldo Persaud RN Unavailable [phone] Reason for Visit * Reason Comments Care Coordination [facility] Ammy bruce telephone call outreach Encounter Details Date Type Department Care Team (Latest Contact Info) Description 11/27/2024 Patient Outreach [facility] MEDICINE 230 [place] [address] Lissy Gracia MD [address] [place] [address] Care Coordination [facility] telephone call outreach) Social [...] encounter Progress Notes * Ammy Ziegler - 11/27/2024 9:48 AM EST CHW Ammy Ziegler placed outbound call to patient. No answer at this time. LVM introducing herself from [facility] CM Department, reminding patient dental appointment on 11/28/24 @ 9:00AM. Requested call back to or , as well as for any additional questions orconcerns. documented in this encounter Plan of Treatment Upcoming Encounters Date Type Department Care Team (Late st Contact Info) Description 2024 9:00 AM EST Office Visit [facility] ADULT DENTAL [address] [place] [address] Wendi Pedroza 12/16/2024 11:00 AM EST Office Visit [facility] MEDICINE [address] [place] [address] 12/16/2024 3:45 PM EST Office Visit [facility] MEDICINE 230 [place] [address] Lissy Gracia MD [address] [place] [address] documented as of this encounter Visit Diagnoses Not on filedocumented in this encounter Additional Health Concerns Assessment Noted Time PHQ-9 Depression Total Score: 0 02/05/20 24 1:47 PM EDT documented as of this encounter Care Teams Electroplating Technician Relationship Specialty Start Date End Date Lissy Gracia MD [address] [place] [address] PCP - General Family Medicine 06/07/21 Reinaldo Persaud RN [address] [place] [address] File Machine OperatorSchool Office Assistant 11/05/24 documented as of this encounter
--- OUTSIDE RECORDS SUMMARY | 2024-12-09 10:21 | XMS_ITS | Encounter Summary ---
Author Organization [employer] Address [address] [facility] [facility] [address] 7t [place] [address] Care Team Providers Care Senior Training And Development Rep Name Role Phone Lissy Gracia MD Primary Care Provider [phone] Reinaldo Persaud RN Unavailable [phone] Reason for Visit * Reason Comments Med Refill Encounter Details Date Type Department Care Team ([facility] st Contact Info) Description 11/28/2024 Refill [facility] MEDICINE 230 [place] [address] Lissy Gracia MD [address] [place] [address] Chronic bilateral low back pain, unspecified whether [...] Office Visit [facility] ADULT DENTAL [address] [place] [address] Wendi Pedroza 12/16/2024 11:00 AM EST Office Visit [facility] MEDICINE [address] [place] [address] 12/16/2024 3:45 PM EST Office Visit [facility] MEDICINE [address] [place] [address] Lissy Gracia MD [address] [place] [address] documented as of this encounter Visit Diagnoses Diagnosis Chronic bilateral low back pain, unspecified whether sciatica present documented in this encounter Additional Health Concerns Assessment Noted Time PHQ-9 Depression Total Score: 0 02/05/20 24 1:47 PM EDT documented as of this encounter Care Teams Senior Training And Development Rep Relationship Specialty Start Date End Date Lissy Gracia MD [address] [place] [address] PCP - General Family Medicine 06/07/21 Reinaldo Persaud RN [address] [place] [address] Core ShaperTour Manager 11/05/24 documented as of this encounter
--- OUTSIDE RECORDS SUMMARY | 2024-12-09 10:21 | XMS_ITS | Encounter Summary ---
Author Organization [employer] Address [address] [facility] [address] 7t [place] [address] Care Team Providers Care Supervisor Advice Name Role Phone Lissy Gracia MD Primary Care Provider [phone] Reinaldo Persaud RN Unavailable [phone] Encounter Details Date Type Department Care Team ([facility] st Contact Info) Description 11/19/2024 1:15 PM EST Office Visit [facility] MEDICINE 230 [place] [address] Lissy Gracia MD 230 [place], [place] [phone] Fibromyalgia (Primary Dx); Chronic migraine without aura [...] the past 12 months, has t he [employer], gas, oil or water [employer] threatened to shut off services in your [...] Description 2024 9:00 AM EST Office Visit [facility] ADULT DENTAL [address] [place] [address] Kasia Wendi 12/16/2024 11:00 AM EST Office Visit [facility] MEDICINE [address] [place] [address] 12/16/2024 3:45 PM EST Office Visit [address] [address] Lissy Gracia MD [address] [place] [address] documented as of this encounter Visit Diagnoses Diagnosis Fibromyalgia- Primary Unspecified myalgia and myositis Chronic migraine without aura without status migrainosus, not intractable documented in this encounter Additional Health Concerns Assessment Noted Time PHQ-9 Depression Total Score: 0 02/05/20 24 1:47 PM EDT documented as of this encounter Care Teams Supervisor Advice Relationship Specialty Start Date End Date Lissy Gracia MD [address] [place] [address] PCP - General Family Medicine 06/07/21 Reinaldo Persaud RN [address] [place] [address] Features EditorLand Use Planner 11/05/24 documented as of this encounter
--- OUTSIDE RECORDS SUMMARY | 2024-12-09 10:21 | XMS_ITS | Encounter Summary ---
Author Organization [employer] Address [address] [facility] [address] 7t [place] [address] Care Team Providers Care Preparer Name Role Phone Lissy Gracia MD Primary Care Provider [phone] Reinaldo Persaud RN Unavailable [phone] Reason for Visit * Reason Comments Med Refill Encounter Details Date Type Department Care Team ([facility] st Contact Info) Description 11/21/2024 Refill [facility] 230 [place] [address] Candice Moreland DO 230 [place] [address] Social History Tobacco Use Types Packs/Day Years [...] Description 2024 9:00 AM EST Office Visit [facility] ADULT DENTAL [address] [place] [address] Wendi Pedroza 12/16/2024 11:00 AM EST Office Visit [facility] MEDICINE [address] [place] [address] 12/16/2024 3:45 PM EST Office Visit [facility] MEDICINE [address] [place] [address] Lissy Gracia MD [address] [place] [address] documented as of this encounter Visit Diagnoses Not on filedocumented in this encounter Additional Health Concerns Assessment Noted Time PHQ-9 Depression Total Score: 0 02/05/20 24 1:47 PM EDT documented as of this encounter Care Teams Preparer Relationship Specialty Start Date End Date Lissy Gracia MD [address] [place] [address] PCP - General Family Medicine 06/07/21 Reinaldo Persaud RN [address] [place] [address] Clinic LpnSoftware Engineer Mobile 11/05/24 documented as of this encounter
--- OUTSIDE RECORDS SUMMARY | 2024-12-09 10:21 | XMS_ITS | Encounter Summary ---
Author Organization [employer] Address [address] [facility] [address] 7t [place] [address] Care Team Providers Care Vice President Of Consulting Services Name Role Phone Lissy Gracia MD Primary Care Provider [phone] Reinaldo Persaud RN Unavailable [phone] Reason for Visit * Reason Comments Care Coordination [facility]3 [facility] Ammy bruce telephone call outreach Encounter Details Date Type Department Care Team (Latest Contact Info) Description 11/26/2024 Patient Outreach [facility] MEDICINE [address] [place] [address] Lissy Gracia MD 230 [place] [address] Care Coordination [facility] call outreach/) Social History Tobacco Use Types Packs/Day Years [...] Progress Notes * Ammy Ziegler - 11/26/2024 1:21 PM EST W Ammy Ziegler submitted transportation and was approved to [facility] expires on 11/25/25, also to [facility] expires on 11/22/25. documented in this encounter Plan of Treatment Upcoming Encounters Date Type Department Care Team (Late st Contact Info) Description 2024 9:00 AM EST Office Visit [facility] ADULT DENTAL [address] [place] [address] Wendi Pedroza 12/16/2024 11:00 AM EST Office Visit [facility] MEDICINE [address] [place] [address] 12/16/2024 3:45 PM EST Office Visit [facility] MEDICINE [address] [place] [address] Lissy Gracia MD [address] [place] [address] documented as of this encounter Visit Diagnoses Not on filedocumented in this encounter Additional Health Concerns Assessment Noted Time PHQ-9 Depression Total Score: 0 02/05/20 24 1:47 PM EDT documented as of this encounter Care Teams Vice President Of Consulting Services Relationship Specialty Start Date End Date Lissy Gracia MD 230 [place] [address] PCP - General Family Medicine 06/07/21 Reinaldo Persaud RN [address] [place] [address] Operations Systems SpecialistMainframe Architect 11/05/24 documented as of this encounter
--- OUTSIDE RECORDS SUMMARY | 2024-12-09 10:21 | XMS_ITS | Encounter Summary ---
Author Organization [employer] [facility] Address [address] [facility] [address] 7t [place] [address] Care Team Providers Care Sterile Process Coordinator Name Role Phone Lissy Gracia MD Primary Care Provider [phone] Reinaldo Persaud RN Unavailable [phone] Reason for Visit * Reason Comments Extraction Encounter Details Date Type Department Care Team ([facility] st Contact Info) Description 11/19/2024 8:00 AM EST Office Visit [facility] ADULT DENTAL [address] [place] [address] Ciro Rockwell DDS [address] [place] [address] Retained dental root (Primary Dx) Social History [...] female. Time Out: No data recorded Location: [facility] Tooth: Maxilla and #16 Procedure: Extraction Verified the above with patient, technical staff assistant, and provider. Confirmed via patient's chart, intraorally and by radiographs. Adjunct Psychology Faculty Member: not applicable Chief Complaint Patient presents with Extraction Medical Hx: Vitals: Blood pressure 138/88. 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 [...] not swallow. 13 g 11 nystatin (Mycostatin) 688310 UNIT/ML suspension Take 4 mL (400,000 Units) [...] NV: F/U as needed 6 mo recall Facility Worker: Krista Gonzales Dentist: Ciro Rockwell DDS documented in this encounter Plan of Treatment Upcoming Encounters Date Type Department Care Team (Late st Contact Info) Description 2024 9:00 AM EST Office Visit [facility] ADULT DENTAL [address] [place] [address] Larissa Pedrozasa 12/16/2024 11:00 AM EST Office Visit [facility] MEDICINE [address] [place] [address] 12/16/2024 3:45 PM EST Office Visit [facility] MEDICINE [address] [place] [address] Lissy Gracia MD [address] [place], [place] Scheduled Orders Name Type Priority Associated Diagnoses Orde r Schedule 16 16 EXTRACTION, ERUPTED TOOTH REQUIRING REMOVAL OF BONE AND/OR SECTIONING OF TOOTH, AND INCLUDING ELEVATION OF MUCOPERIOSTEAL FLAP IF INDICATED Dental Routine [address] arting 11/19/2024 documented as of this encounter Procedures Procedure Name Priority Date/Time Associated Diagnosis Comments 16 EXTRACTION, ERUPTED TOOTH REQ REMOVAL OF BONE AND/OR SECTIONING OF TOOTH Routine 11/19/2024 8:00 AM EST CASE PRESENTATION, DETAILED AND EXTENSIVE TREATMENT PLANNING Routine 11/19/2024 8:00 AM EST documented in this encounter Visit Diagnoses Diagnosis Retained dental root- Primary documented in this encounter Additional Health Concerns Assessment Noted Time PHQ-9 Depression Total Score: 0 02/05/20 24 1:47 PM EDT documented as of this encounter Care Teams Sterile Process Coordinator Relationship Specialty Start Date End Date Lissy Gracia MD [address] [place] [address] PCP - General Family Medicine 06/07/21 Reinaldo Persaud RN [address] [place] [address] Print DesignerTemplate Fitter 11/05/24 documented as of this encounter
--- OUTSIDE RECORDS SUMMARY | 2024-12-09 10:21 | XMS_ITS | Encounter Summary ---
Author Organization [employer] Address [address] 7t [place] [address] Care Team Providers Care Expense Analyst Name Role Phone Lissy Gracia MD Primary Care Provider [phone] Reinaldo Persaud RN Unavailable [phone] Reason for Visit * Reason Onset Date Comments Lab Orders 11/18/2024 Encounter Details Date Type Department Care Team ([facility] st Contact Info) Description 11/18/2024 Telephone [facility] [address] [place] [address] Lissy Gracia MD [address] [place] [address] Lab Orders Social History Tobacco Use Types [...] t he electric, gas, oil or water [employer] threatened to shut off services in your [...] 10:55 AM EST TC placed to patient [phone] to inform Tspot order placed and patient [...] Description 2024 9:00 AM EST Office Visit [facility] [address] [place] [address] Wendi Pedroza 12/16/2024 11:00 AM EST Office Visit [facility] [address] [place] [address] 12/16/2024 3:45 PM EST Office Visit [facility] [address] [place], [place] [phone] Lissy Gracia MD [address] [place] [address] documented as of this encounter Procedures Procedure Name Priority Date/Time Associated Diagnosis Comments T-SPOT(R).TB Routine 11/25/2024 9:40 AM EST Encounter for screening for respiratory tuberculosis documented in this encounter Results * T-SPOT??.TB (11/25/2024 9:40 AM EST) [facility] T Spot TB Negative Negative [facility] Comment:A negative test resu lt [...] as aquantitative test. TS PANEL A 0 [facility] TS PANEL B 0 [facility] Negative Control Passed [facility] Positive Control Passed [facility] Comment:For additional infor bobby, please refer tohttp://education.uchoose/faq/NMU168(This link is being provided for informational/educational purposes only.)THIS TEST WAS PERFORMED AT:[employer] [id number] [place] [address]LRNSSZHBHARAT MAXWELL MD,PHD 11/25/2024 9:40 AM EST 11/25/2024 11:06 AM EST us Lissy Gracia MD LAB BLOOD ORDERABLES Final Res ult [facility] [address] [place] [address] [phone] documented in this encounter Visit Diagnoses Diagnosis Encounter for screening for respiratory tuberculosis documented in this encounter Additional Health Concerns Assessment Noted Time PHQ-9 Depression Total Score: 0 02/05/20 24 1:47 PM EDT documented as of this encounter Care Teams Expense Analyst Relationship Specialty Start Date End Date Lissy Gracia MD [address] [place] [address] PCP - General Family Medicine 06/07/21 Reinaldo Persaud, LILIANE [address] [place] [address] Dot Compliance CoordinatorAssembly Machine Operator 11/05/24 documented as of this encounter
--- OUTSIDE RECORDS SUMMARY | 2024-12-09 10:21 | XMS_ITS | Encounter Summary ---
Author Organization [employer] Address [address] 7t [place] [address] Care Team Providers Care Nuclear Design Engineer Name Role Phone Lissy Gracia MD Primary Care Provider [phone] Reinaldo Persaud RN Unavailable [phone] Reason for Visit * Reason Comments Care Coordination [facility] Ammy bruce telephone call outreach Encounter Details Date Type Department Care Team (Latest Contact Info) Description 11/25/2024 Patient Outreach [facility] [address] [place] [address] Lissy Gracia MD [address] [place] [address] Care Coordination ([facility] Ziegler telephone call outreach) Social History Tobacco [...] at thistime. LVM introducing herself from [facility] CM Department. Requested call back. CHW reinforced direct contact information or for any additional questionsor concerns and extended clinic hours on Mondays and Wednesdays, and Walk-In Urgent Care Located inLobby of [facility]. Patient provided with after-hours line for [facility], , which offer nighttime triage service and option to transfer to instrument/control technician provider if needed. CHW will attempt another follow up call within 10 days. documented in this encounter Plan of Treatment Upcoming Encounters Date Type Department Care Team (Late st Contact Info) Description 2024 9:00 AM EST Office Visit [facility] ADULT DENTAL [address] [place] [address] Wendi Pedroza 12/16/2024 11:00 AM EST Office Visit [facility] MEDICINE [address] [place] [address] 12/16/2024 3:45 PM EST Office Visit [address] [address] Lissy Gracia MD [address] [place] [address] documented as of this encounter Visit Diagnoses Not on filedocumented in this encounter Additional Health Concerns Assessment Noted Time PHQ-9 Depression Total Score: 0 02/05/20 24 1:47 PM EDT documented as of this encounter Care Teams Nuclear Design Engineer Relationship Specialty Start Date End Date Lissy Gracia MD [address] [place] [address] PCP - General Family Medicine 06/07/21 Reinaldo Persaud RN [address] [place] [address] Medical Insurance Claims ProcessorSeismic Interpreter 11/05/24 documented as of this encounter
--- OUTSIDE RECORDS SUMMARY | 2024-12-09 10:22 | XMS_ITS | Encounter Summary ---
Author Organization [employer] Address [address] 7t [place] [address] Care Team Providers Care Natural Gas Plant Supervisor Name Role Phone Lissy Gracia MD Primary Care Provider [phone] Reinaldo Persaud RN Unavailable [phone] Reason for Visit * Reason Comments Med Refill Encounter Details Date Type Department Care Team ([facility] st Contact Info) Description 12/20/2023 Refill [facility] [address] [place], [place] [phone] Lissy Gracia MD [address] [place], [place] [phone] Chronic bilateral low back pain, unspecified whether [...] Description 2024 9:00 AM EST Office Visit [facility] [address] [place] [address] Wendi Pedroza 12/16/2024 11:00 AM EST Office Visit [facility] [address] [place] [address] 12/16/2024 3:45 PM EST Office Visit [facility] [address] [place] [address] Lissy Gracia MD [address] [place] [address] documented as of this encounter Visit Diagnoses Diagnosis Chronic bilateral low back pain, unspecified whether sciatica present documented in this encounter Additional Health Concerns Assessment Noted Time PHQ-9 Depression Total Score: 0 06/09/20 23 3:37 PM EDT documented as of this encounter Care Teams Natural Gas Plant Supervisor Relationship Specialty Start Date End Date Lissy Gracia MD [address] [place] [address] PCP - General Family Medicine 06/07/21 Reinaldo Persaud RN [address] [place] [address] Mechanic'S AssistantBone Drier 11/05/24 documented as of this encounter
--- OUTSIDE RECORDS SUMMARY | 2024-12-09 10:22 | XMS_ITS | Clinical Summary ---
Author Organization [facility] Address [address] [place] [address] Care Team Providers Care Will Call Clerk Name Role Phone Unavailable Primary Care Provider [...] age to complete this topic [place]
--- OUTSIDE RECORDS SUMMARY | 2024-12-09 10:22 | XMS_ITS | Clinical Summary ---
Author Organization [facility] ity Address [address] [place] [address] Care Team Providers Care Conservation Coordinator Name Role Phone Unavailable Primary Care Provider [...]
--- OUTSIDE RECORDS SUMMARY | 2024-12-09 10:22 | XMS_ITS | Encounter Summary ---
Author Organization [employer] Address [address] 7t [place] [address] Care Team Providers Care Rn Heart Name Role Phone Lissy Gracia MD Primary Care Provider [phone] Reinaldo Persaud RN Unavailable [phone] Reason for Visit * Reason Onset Date Comments Appointment Request 10/17/2023 Encounter Details Date Type Department Care Team ([facility] st Contact Info) Description 10/17/2023 Telephone [facility] [address] [place], [place] [phone] Lissy Gracia MD [address] [place], [place] [phone] Appointment Request Social History Tobacco Use Types [...] follow up . Please contact pt @ [phone] Yakut Speaker documented in this encounter Plan of Treatment Upcoming Encounters Date Type Department Care Team (Late st Contact Info) Description 2024 9:00 AM EST Office Visit [facility] ADULT D[facility] [address] [place] [address] Wendi Pedroza 12/16/2024 11:00 AM EST Office Visit [facility] [address] [place] [address] 12/16/2024 3:45 PM EST Office Visit [facility] [address] [place] [address] Lissy Gracia MD [address] [place] [address] documented as of this encounter Visit Diagnoses Not on filedocumented in this encounter Additional Health Concerns Assessment Noted Time PHQ-9 Depression Total Score: 0 06/09/20 23 3:37 PM EDT documented as of this encounter Care Teams Rn Heart Relationship Specialty Start Date End Date Lissy Gracia MD [address] [place] [address] PCP - General Family Medicine 06/07/21 Reinaldo Persaud RN [address] [place] [address] [employer] ConsultantRehabilitation Counselor 11/05/24 documented as of this encounter
== END 2024-12-09 10:34 | disposition home or self-care (01) ==
PROVIDERS: PCP General Practice; Visit Provider Internal Medicine Cardiovascular Disease
DX: R07.89 Other chest pain (principal)
CPT/HCPCS: 93010; 99214

== ENCOUNTER → 2024-12-09 09:33 | Outpatient (BNVA) | payer MEDICAID, SELFPAY | PROVIDERS: PCP General Practice; Visit Provider Internal Medicine Cardiovascular Disease | DX: R07.89 Other chest pain (principal) | CPT/HCPCS: 93005; 99212 ==

== ENCOUNTER → 2025-01-03 13:06 | Outpatient (REF) | payer MEDICAID, SELFPAY ==
--- NOTE | 2025-01-03 13:10 | CA_ITS ---
Transthoracic Echocardiogram Patient (Last, First, Middle): Irene Garcia, Gender: Female Date of : 1975 Age: 49 Procedure Date: 01/03/2025 Procedure Type: Transthoracic Echocardiogram Location: OP Height: 167.64 cm Weight: 74.84 kg BSA: 1.84 m2 Heart Rate: bpm BP: 122 / 60 mmHg Linux Systems Engineer: Referring MD: Jordy Mfcarland MD Symptoms: R07.89 - Other chest pain Study Quality: Adequate ECG Rhythm: Sinus Conclusions: - Normal left ventricular size, thickness, systolic function, and wall motion. The visually estimated ejection fraction is between 55-60%. Diastolic function is normal for age. - Normal right ventricular cavity size and systolic function. Findings Left Ventricle Normal left ventricular size, thickness, systolic function, and wall motion. The visually estimated ejection fraction is between 55-60%. Diastolic function is normal for age. Right Ventricle Normal right ventricular cavity size and systolic function. Atria The left atrium is normal in size. The right atrium is normal in size. Aortic Valve Normal aortic valve structure and function. There is no aortic valve stenosis. There is no aortic valve regurgitation. Mitral Valve The mitral valve appears normal. There is no mitral valve regurgitation. There is no mitral valve stenosis. Pulmonic Valve The pulmonic valve is likely normal. There is no pulmonic valve regurgitation. Tricuspid Valve Normal tricuspid valve structure. There is no tricuspid valve regurgitation. Normal right atrial pressure. There is no evidence of pulmonary hypertension. Great Vessels All visible segments of the aorta are normal in size. The visualized portions of the pulmonary artery and branches are normal. Venous The inferior vena cava is normal in size and collapses greater than 50% with inspiration. Pericardium/Pleural There is no evidence of pericardial effusion. Prior Study Comparison No significant change compared to prior study dated: 09/19/2024. Measurements 2D Linear Measurements IVSd: 0.88 0.6-0.9/0.6-1.0 cm LVIDd: 4.28 3.9-5.3/4.2-5.9 cm LVIDd Index: 2.33 2.4-3.2/2.2-3.1 cm/m2 LVIDs: 3.07 2.0-3.6 cm LVPWd: 0.98 0.7-1.1 cm Ao Root: 3.00 2.1-3.5 cm LA Diam: 3.10 2.7-3.8/3.0-4.0 cm LAIDs Index: 1.68 1.5-2.3 cm/m2 LV Mass: 158.49 67-162/88-224 g LV Mass Index: 86.14 43-95/49-115 g/m2 LVOT Diam: 2.00 3.0+(-)1.3 cm 2D Systolic Function EF 4C: 53.20 >55% EF 2C: 52.80 >55% EF BiP: 53.20 >55% Mitral Valve MV Pk E: 0.63 MV PK A: 1.01 MV Decel Time: 138.00 E/A: 0.60 E'Lateral: 6.20 E'Medial: 5.00 E/E' Med: 12.60 E/E' Lat: 10.20 PHT: 41.00 MVA PHT: 5.37 Decel Sandoval: 4.55 Aortic Valve AoV Pk Eleazar: 1.55 AoV Mn Eleazar: 0.97 AoV VTI: 0.28 AoV Pk Grad: 10.00 Aov Mn Grad: 5.00 JESUS Cont.VTI: 2.48 LVOT LVOT Pk Eleazar: 1.17 LVOT Mn Eleazar: 0.78 LVOT VTI: 0.22 LVOT Pk Grad: 5.00 LVOT Mn Grad: 3.00 LVOT Diam: 2.00 LVOT Area: 3.14 Diastolic Function MV Pk E: 0.63 MV Pk A: 1.01 E/A: 0.60 E'Medial: 5.00 E/E' Med: 12.60 E' Laterial: 6.20 E/E' Lat: 10.20 Right Ventricle TAPSE (mm): 27.00 TVS' Eleazar: 12.00 Tricuspid Valve TR Pk Eleazar: 1.94 TR Pk Grad: 15.00 RA Press: 3.00 RVSP: 18.00 Great Vessels Aorta Ao Root-2D: 3.00 2.0-3.7 cm Ao Asc: 3.20 2.1-3.4 cm Pulmonary Valve PV Pk Eleazar: 1.08 Peak PV Grad: 5.00 Updated in Other Vendor System with Status of Final Karl Rivera MD electronically signed on 01/05/2025 5:49:36 PM with status of Final
--- OUTSIDE RECORDS SUMMARY | 2025-01-03 15:31 | XMS_ITS | Clinical Summary ---
Author Organization [facility] ity Address [address] [place] [address] Care Team Providers Care Contact Finger Assembler Name Role Phone Unavailable Primary Care Provider [...]
--- OUTSIDE RECORDS SUMMARY | 2025-01-03 15:31 | XMS_ITS | Continuity of Care Document ---
Author Organization [facility] Address [address] [place] [address] Phone Care Team Providers Care Harness Brusher Name Role Phone Madatovian, DO DO, Harut [...] Test strips apply 1 not specified by [facility].(non-drug; combo) route 3 times every day 1 [...] Diagnoses Date Provider Providers Copied on Encounter [facility], [address], [place], [place], [id number], [place] tel:[phone] [place] No Information 1 Madatovian, DO Harut. [address] [facility] [address], [place], [address]. tel:[phone] [facility], [address], [place], [place], [id number], [place] tel:[phone] [address] [place] No Information Dec-0 - 0 Madatovian, DO Harut. [address] [facility] [address], [place], [address]. tel:[phone] OV 15 MIN M/F [facility], [address], [place], [place], [id number], [place] tel:[phone] [place] Lab results (chief complaint) Insulin dependent diabetes mellitusLong term (current) use of insulinHyperlip idemia, unspecified hyperlipidemia type Madatovian, DO Harut. [address], [address]. tel:[phone] [facility], [address], [place], [place], [id number], [place] tel:[phone] [place] Blood work only (chief complaint) No Information No Information OV 20 MIN M/F [facility], [address], [place], [place], [id number], [place] tel:[phone] [place] blood test (chief complaint) weight loss (chief complaint) Encntr for general adult medical exam w/o abnormal findingsWeight lossHistory of uterine fibroid Madatovian, DO Harut. [address] [facility] [address], [place], [address]. tel:[phone] Family History Family Member Type Diagnosis Age [...] Order: Lab Order CBC (INC LUDES DIFF/PLT) ([id number]), Ordered on: Ordered Future Order: Lab Order COMPREHE NSIVE METABOLIC PANEL ([id number]), Ordered on: Ordered Future Order: Lab Order HEMOGLOB IN A1C (496), Ordered on: Ordered Future Order: Lab Order LIPID PA BECCA ([id number]), Ordered on: Ordered Future Order: Lab Order THYROID PANEL WITH TSH, 3RD GENERATION ([id number]), Ordered on: Ordered Future Order: Lab Order URINALYS IS, COMPLETE ([id number]), Ordered on: Ordered Future Order: Lab Order C-REACTI VE PROTEIN ([id number]), Ordered on: Ordered Future Order: Lab Order SED RATE BY MODIFIED WESTERGREN (509), Ordered on: Ordered Future Order: Lab Order [...]
--- OUTSIDE RECORDS SUMMARY | 2025-01-03 15:31 | XMS_ITS | Clinical Summary ---
Author Organization [facility] Address [address] [place] [address] Care Team Providers Care Roving Winder Name Role Phone Unavailable Primary Care Provider [...] age to complete this topic [place]
== END ==
LOC: HO.CARD 13:06
PROVIDERS: PCP General Practice; Visit Provider Internal Medicine Cardiovascular Disease
DX: R07.89 Other chest pain (principal)
CPT/HCPCS: 93306

== ENCOUNTER → 2025-01-03 13:10 | Outpatient (BNV) | payer MEDICAID, SELFPAY | PROVIDERS: PCP General Practice; Visit Provider Internal Medicine Cardiovascular Disease | DX: R07.89 Other chest pain (principal) | CPT/HCPCS: 93306 ==

== ENCOUNTER → 2025-01-15 09:44 | Outpatient (REF) | payer MEDICAID, SELFPAY ==
--- NOTE | 2025-01-15 09:47 | CA_ITS ---
Acquisition Time: 2025-01-15 10:56:17 Total Exercise Time: 00:05:40 Test Indications: CP Medications: SEE H&P Protocol: RANGEL Max HR: 193 BPM 114% of Pred: 169 BPM Max BP: 158/70 mmHG Max Work Load: 7.0 METS Exercise stress test with exercise 5 mins 40 sces of Rangel Protocol, achieving 85% MPHR, with reports of SOB, baseline 8/10 left chest pressure that pt states is constant and is reproducible- chest pressure came down to 6 when starting on treadmill and radha upto 9 with exercise, without any arrythmias, with normotensive response to exercise. With upsloping ST with exercise and one minute into recovery, pt had downsloping ST depression inferiorly meeting criteria for ischemia. In recovery, breathing and chest pressure returned to baseline. ST segment improved. Echo images obtained at rest and post peak exercise. Definity contrast utilized. Test reviewed with dr. Hutson. Referred By: Jordy Mcfarland Electronically Signed By: David Fernandez
--- OUTSIDE RECORDS SUMMARY | 2025-01-15 11:03 | XMS_ITS | Encounter Summary ---
Author Organization [employer] Address [address] 7t [place] [address] Care Team Providers Care Fence Laborer Name Role Phone Lissy Gracia MD Primary Care Provider [phone] Reinaldo Persaud RN Unavailable [phone] Reason for Visit * Reason Comments Care Coordination [facility] Ammy bruce telephone call outreach Encounter Details Date Type Department Care Team (Latest Contact Info) Description 01/14/2025 Patient Outreach [facility] [address] [place] [address] Lissy Gracia MD [address] [place] [address] Care Coordination ([facility] telephone call outreach /) Social History Tobacco Use Types Packs/Day Years [...] encounter Progress Notes * Ammy Ziegler - 01/14/2025 2:21 PM EDT CHW Ammy Ziegler placed outbound call to patient introducing herself from [facility] CM Department, in regard to remind patient of appt for 01/15/25 @ 11:00AM. Patient's name and was confirmed. Patient is aware and confirmed will be available and has no barriers on attending this appointment. Patient verbalized understanding and agrees with plan. documented in this encounter Plan of Treatment Upcoming Encounters Date Type Department Care Team (Late st Contact Info) Description 01/20/2025 11:00 AM EDT Office Visit [facility] [address] [place] [address] 01/22/2025 9:00 AM EDT Office Visit [facility] ADULT DENTAL [address] [place] [address] Wendi Pedroza 03/14/2025 2:15 PM EDT Office Visit [facility] [address] [place] [address] Lissy Gracia MD [address] [place] [address] documented as of this encounter Visit Diagnoses Not on filedocumented in this encounter Additional Health Concerns Assessment Noted Time PHQ-9 Depression Total Score: 0 02/05/20 24 1:47 PM EDT documented as of this encounter Care Teams Fence Laborer Relationship Specialty Start Date End Date Lissy Gracia MD [address] [place], [place] [phone] PCP - General Family Medicine 06/07/21 Reinaldo Persaud RN [address] [place] [address] Fire Extinguisher InstallerFlying Instructor 11/05/24 documented as of this encounter
--- OUTSIDE RECORDS SUMMARY | 2025-01-15 11:03 | XMS_ITS | Encounter Summary ---
Author Organization [employer] Address [address] 7t [place] [address] Care Team Providers Care Trade Marker Name Role Phone Lissy Gracia MD Primary Care Provider [phone] Reinaldo Persaud RN Unavailable [phone] Encounter Details Date Type Department Care Team (Latest Contact Info) Description 01/14/2025 Travel Social History Tobacco Use Types Packs/Day [...] Description 01/20/2025 11:00 AM EDT Office Visit [facility] [address] [place] [address] 01/22/2025 9:00 AM EDT Office Visit [facility] ADULT DENTAL [address] [place] [address] Wendi Pedroza 03/14/2025 2:15 PM EDT Office Visit [facility] MED[facility]INE [address] [place] [address] Lissy Gracia MD [address] [place] [address] documented as of this encounter Visit Diagnoses Not on filedocumented in this encounter Additional Health Concerns Assessment Noted Time PHQ-9 Depression Total Score: 0 02/05/20 24 1:47 PM EDT documented as of this encounter Care Teams Trade Marker Relationship Specialty Start Date End Date Lissy Gracia MD [address] [place] [address] PCP - General Family Medicine 06/07/21 Reinaldo Persaud RN [address] [place] [address] Director Of Food And NutritionClerical Manager 1/21/25 documented as of this encounter
--- OUTSIDE RECORDS SUMMARY | 2025-01-15 11:03 | XMS_ITS | Encounter Summary ---
Author Organization [employer] Address [address] [facility] 7t [place] [address] Care Team Providers Care Management Tech Name Role Phone Lissy Gracia MD Primary Care Provider [phone] Reinaldo Persaud RN Unavailable [phone] Reason for Visit * Reason Comments Med Refill Encounter Details Date Type Department Care Team (Late st Contact Info) Description 06/13/2023 Refill [facility] [address] [place] [address] Chari Murray FNP [address] [place] [address] Dept [place] [address] Mild persistent asthma without complication Social History [...] Description 01/20/2025 11:00 AM EDT Office Visit [facility] [address] [place], [place] [phone] 01/22/2025 9:00 AM EDT Office Visit [facility] [address] [place] [address] Wendi Pedroza 03/14/2025 2:15 PM EDT Office Visit [facility] [address] [place] [address] Lissy Gracia MD [address] [place] [address] documented as of this encounter Visit Diagnoses Diagnosis Mild persistent asthma without complication documented in this encounter Additional Health Concerns Assessment Noted Time PHQ-9 Depression Total Score: 0 06/09/20 3:37 PM EDT documented as of this encounter Care Teams Management Tech Relationship Specialty Start Date End Date Lissy Gracia MD 230 [place] [address] PCP - General Family Medicine 06/07/21 Reinaldo Persaud RN [address] [place] [address] Scan CoordinatorLocal Company Tanker Driver 11/05/24 documented as of this encounter
--- OUTSIDE RECORDS SUMMARY | 2025-01-15 11:03 | XMS_ITS | Clinical Summary ---
Author Organization [employer] Address [address] [place] [address] Care Team Providers Care Intelligence Officer Name Role Phone Lissy Gracia MD Primary Care Provider [phone] Reinaldo Persaud RN Unavailable [phone] Allergies No known active allergies Medications docusate sodium (Colace) 100 MG capsule Take 100 mg by mouth at bedtime. 022 Active famotidine (Pepcid) 40 MG tablet Take 40 mg by mouth at bedtime. 022 Active Blood Glucose Monitoring Suppl (Velsys LimitedStyle Lite) w/Device kitIndications:Ty pe 2 diabetes mellitus with hyperglycemia, without long-term current use of insulin ([facility]) 1 kit 2 times daily. To [...] DAILY NEEDED 48 g 3 024 Active albuterol (Ventolin HFA) 108 [...] without long-term current use of insulin (CMS/HCC) Apply 1 each topically 2 times daily. 100 each Active TRUEplus Lancets 33G miscIndications:T ype 2 diabetes mellitus with hyperglycemia, without long-term current use of insulin (CMS/HCC) Apply 1 each topically 2 times daily. 100 each 11 024 Active FREESTYLE LITE test stripIndications: Type 2 diabetes mellitus with hyperglycemia, without long-term current use of insulin ([facility]) 1 each by Other route 2 times daily. Use as instructed 100 each 11 024 Active Magnesium 400 MG capsuleIndication s:Muscle pain [...] by mouth 2 times daily. 024 Active Breo Ellipta 200-25 MCG/ACT aerosol powder INHALE 1 PUFF BY MOUTH EVERY DAY AT THE SAME TIME RINSE MOUTH AFTER USING 025 Active diphenhydrAMINE (BENADryl) 25 MG capsule TAKE 2 CAPSULES BY MOUTH EVERY 6 HOURS NEEDED FOR NAUSEA AND VOMITING AND HEADACHE 025 Active Pain Reliever Plus 250-250-65 MG tablet TAKE 2 TABLETS BY MOUTH EVERY 6 HOURS NEEDED FOR HEADACHE 025 Active Miconazole 7 2 % vaginal cream INSERT 1 APPLICATORFUL VAGINALLY AT BEDTIME FOR 7 DAYS 025 Active ondansetron ODT (Zofran-ODT) 4 MG disintegrating tablet DISSOLVE 1 TABLET encima de la lengua EVERY 8 HOURS DIRECTED 20 tablet 3 025 Active gabapentin (Neurontin) 300 MG capsuleIndication s:Chronic bilateral low back pain, unspecified whether sciatica present TAKE 1 CAPSULE BY MOUTH TWICE DAILY IN THE MORNING AND IN THE EVENING and TAKE 2 CAPSULES BY MOUTH EVERY DAY AT BEDTIME 120 capsule 11 025 Active acetaminophen (Tylenol) 325 MG tablet TAKE 2 TABLETS BY MOUTH EVERY 4 HOURS NEEDED FOR PAIN, FOR HEADACHE, OR FOR FEVER. 40 tablet 025 Active Diclofenac Sodium 1 % gelIndications:Ce rvical radiculopathy APPLY 2 GRAMS TOPICALLY TO FEET TWICE DAILY IN THE MORNING AND AT BEDTIME NEEDED FOR PAIN. 100 g 6 025 Active lidocaine (Lidoderm) 5 % patchIndications: Cervical radiculopathy APPLY 1 TO 2 PATCHES TOPICALLY TO SKIN, LEAVE ON FOR 12 HOURS AND OFF FOR 12 HOURS DIRECTED 60 patch 6 Active Dulaglutide (Trulicity) 3 MG/0.5ML solution auto-injector Inject 3 mg under the skin 1 (one) time per week. 2 mL 3 Active metFORMIN (Glucophage) 500 MG tablet Take 2 tablets (1,000 mg) by mouth with breakfast and with evening meal. 360 tablet 3 Active triamcinolone (Kenalog) 0.1 % creamIndications: Acute eczematoid otitis externa of both ears Apply topically if needed in the morning and at bedtime for irritation (ear) for up to 10 days. 30 g 025 2024 Active clotrimazole (Lotrimin) 1 % creamIndications: Acute eczematoid otitis externa of both ears Apply topically at bedtime for 10 days. To ears 30 g 025 2024 Active Diclofenac Sodium 1 % gelIndications:Ce rvical radiculopathy Apply 1 Application topically if needed in the morning and at bedtime (pain in feet). 100 g 6 024 2024 Discontinued lidocaine (Lidoderm) 5 % patchIndications: Cervical radiculopathy APPLY 1 TO 2 PATCHES TOPICALLY TO SKIN, LEAVE ON FOR 12 HOURS AND OFF FOR 12 HOURS DIRECTED 60 patch 6 024 2024 Discontinued Invokana 300 MG TAKE 1 TABLET BY MOUTH EVERY MORNING BEFORE BREAKFAST 90 tablet 3 2024 Discontinued(C ost of medication) Dulaglutide 1.5 MG/0.5ML solution auto-injectorIndi cations:Type 2 diabetes mellitus with hyperglycemia, without long-term current use of insulin (CMS/HCC) Inject 0.5 mL (1.5 mg) as directed 1 (one) time per week. 2 mL 024 2024 Discontinued(D ose adjustment) magnesium oxide (Mag-Ox) 400 MG tablet Take 1 tablet by mouth at bedtime. 024 2024 Discontinued(T herapy completed) metFORMIN (Glucophage) 500 MG tablet TAKE 2 TABLETS BY MOUTH TWICE DAILY IN THE MORNING AND EVENING WITH MEALS 360 tablet 3 025 2024 Discontinued(R eorder (will not trigger notification to Pharmacy)) Active Problems Problem Noted Date Diagnosed Date Acute eczematoid otitis externa of both ears 10/2024 Daytime somnolence 12/30/2024 Retained dental root 11/19/2024 Thrush, oral 11/11/2024 Fibromyalgia 10/29/2024 Assessment & Plan (12/30/2024 1:04 PM EDT): Pt attended and participated in chronic pain group today - good engagement with group model of care - continue to use combination of non-pharmacological modalities to address pain - followup in one week - sleep study ordered ++ consider Cymbalta for her pain/depression. Stop Amitriptyline today, would need to coordinate with her psychiatrist about tapering Zoloft and ramping up Cymbalta Assessment & Plan (11/11/2024 12:52 PM EST): [...] this past winter with multiple viral illnesses Orthopnea 05/22/2023 Assessment & Plan (05/22/2023 4:16 [...] 2 diabetes mellitus 08/21/2015 Assessment & Plan (01/07/2025 1:23 PM EDT): MH denied ongoing coverage for Invokana, will discontinue medication and increase Trulicity to 3mg daily Assessment & Plan (10/22/2024 2:14 PM EST): Stop Glipizide 10mg in the morning as patient appears to be having hypoglycemic episodes, including shaking in [place] where she hit her head Assessment & [...] 300mg daily Maintenance: Eye Exam: [facility] at [facility] 04/2022, next 04/2024 Diabetic foot exam: [...] 300mg daily Maintenance: Eye Exam: [facility] at [facility] 04/2022, next 04/2024 Diabetic foot exam: [...] for f/u Maintenance: Eye Exam: [facility] at [facility] 04/2022 Diabetic foot exam: 06/2022, decreased [...] for f/u Maintenance: Eye Exam: [facility] at [facility] 04/2022 Diabetic foot exam: 06/2022, decreased [...] for f/u Maintenance: Eye Exam: [facility] at [facility] 04/2022 Diabetic foot exam: 06/2022, decreased [...] for f/u Maintenance: Eye Exam: [facility] at [facility] 04/2022 Diabetic foot exam: 06/2022, decreased [...] for f/u Maintenance: Eye Exam: [facility] at [facility] 04/2022 Diabetic foot exam: 06/2022, decreased [...] drinks. -ER precautions discussed Annual physical exam 02/05/202410/29/ 025 COVID-19 virus infection 06/15/2023 Assessment & Plan [...] call ambulance or go immediatly to ED Diabetes due to underlying c ondition w oth circulatory comp 06/09/2023 10/30/2024 Encounters Date Type Department Care Team Description 01/14/2025 1:15 PM EDT Office Visit [address] [address] Lissy Gracia MD Chronic migraine without aura without status migrainosus, not intractable (Primary Dx); Acute eczematoid otitis externa of both ears; Fibromyalgia 01/14/2025 Patient Outreach [address] [address] Lissy Gracia MD Care Coordination ([facility]3 [facility] Ammy Ziegler telephone call outreach /) 01/14/2025 Travel 01/09/2025 10:30 AM EDT Office Visit [address] [address] Irene Singletary MD Chronic migraine without aura without status migrainosus, not intractable (Primary Dx); Anxiety 01/09/2025 Travel 01/08/[address] [address] Lissy Gracia MD Care Management (C3CM- f/u call) 01/07/2025 1:15 PM EDT Office Visit [address] [address] Lissy Gracia MD Fibromyalgia (Primary Dx); Type 2 diabetes mellitus with hyperglycemia, without long-term current use of insulin ([facility]) 01/07/2025 Travel 01/06/2025 9:15 AM EDT Office Visit [address] [address] Irene Singletary MD Chronic migraine without aura without status migrainosus, not intractable (Primary Dx); Anxiety 01/06/2025 Patient Outreach [address] [address] Lissy Gracia MD Care Coordination ([facility] Ammy Ziegler telephone call outreach) 01/06/2025 Patient Outreach [address] [address] Lissy Gracia MD Care Coordination ([facility] Ammy Ziegler telephone call outreach) 01/06/2025 Travel 01/02/2025 Patient Outreach [address] [address] Lissy Gracia MD Care Coordination ([address] Ziegler telephone call outreach) 01/01/2025 Telephone [facility] [address] [place] [phone] Lissy Gracia MD Monday Chronic Pain Group 12/31/2024 1:15 PM EDT Office Visit [address] [address] Lissy Gracia MD Fibromyalgia (Primary Dx); Chronic migraine without aura without status migrainosus, not intractable 12/31/2024 Travel 12/30/2024 11:00 AM EDT Office Visit [address] [address] Lissy Gracia MD Fibromyalgia (Primary Dx); Dietary counseling; Exercise counseling; Overweight; Daytime somnolence 12/30/2024 9:45 AM EDT Office Visit [address] [address] Irene Singletary MD Chronic migraine without aura without status migrainosus, not intractable (Primary Dx); Anxiety 12/30/[address] [address] Lissy Gracia MD Prior Authorization ( [place] Request: Invokana) 12/30/2024 Travel 12/27/[address] [address] Lissy Gracia MD Schedule pain groupm(MONDAYS) 12/27/2024 Population Health Risk Score [facility] Department [address] [place] [id number] Provider, Population Health Generic 12/26/[address] [address] Lissy Gracia MD Cervical radiculopathy 12/24/[address] [address] Lissy Gracia MD Care Management (C3CM- f/u call lvm) 12/23/2024 9:00 AM EDT Office Visit [address] [address] Irene Singletary MD Chronic migraine without aura without status migrainosus, not intractable (Primary Dx); Anxiety 12/23/2024 Travel 12/20/2024 Patient Outreach [address] [phone] Lissy Gracia MD Care Coordination ([facility] telephone call outreach) 12/20/[address] [phone] Lissy Gracia MD Cervical radiculopathy 12/19/2024 10:15 AM EST Office Visit [address] [phone] Irene Singletary MD Chronic migraine without aura without status migrainosus, not intractable (Primary Dx); Anxiety 12/19/2024 Travel 12/17/2024 1:15 PM EST Office Visit [address] [address] Lissy Gracia MD Fibromyalgia (Primary Dx) 12/17/2024 Travel 12/16/[address] [phone] Lissy Gracia MD No Show 12/16/2024 Patient Outreach [address] [address] Lissy Gracia MD Care Coordination ([facility] Ammy Ziegler telephone call outreach) 12/12/2024 Patient Outreach [address] [phone] Lissy Gracia MD Care Coordination ([facility] Ammy Ziegler telephone call outreach) 12/12/[address] [phone] Lissy Gracia MD Care Management (C3CM- f/u call) 12/10/2024 1:15 PM EST Office Visit [facility] [address] [place] [address] Lissy Gracia MD Fibromyalgia (Primary Dx); Chronic migraine without aura without status migrainosus, not intractable 12/10/2024 Travel 12/10/2024 Patient Outreach [address] [address] Lissy Gracia MD Care Coordination ([facility]3 -[facility] telephone call outreach) 12/09/2024 Refill [facility] [address] [place] [address] Lissy Gracia MD Allergic rhinitis, unspecified seasonality, unspecified trigger 12/06/2024 Patient Outreach [address] [address] Lissy Gracia MD Care Coordination ([facility] -[facility] telephone call outreach) 12/05/2024 9:30 AM EST Office Visit [address] [address] Irene Singletary MD Chronic migraine without aura without status migrainosus, not intractable (Primary Dx); Anxiety 12/05/2024 Outside Procedure [facility] [address] [place] [address] Marshall, Betty, OD Presbyopia (Primary Dx) 12/05/2024 Refill [facility] [address] [place] [address] Roscoe Alfaro MD 12/05/2024 Travel 12/04/2024 9:15 AM EST Office Visit [facility] [address] [place] [address] Marshall, Betty, OD Hyperopia of both eyes (Primary Dx) 12/04/2024 Patient Outreach [address] [address] Lissy Gracia MD Care Coordination ([facility] telephone call outreach) 12/04/2024 Patient Outreach [address] [address] Lissy Gracia MD Pre-visit Planning (SDOH screening positive and tobacco screening negative) 12/04/2024 Travel 12/03/2024 9:45 AM EST Office Visit [address] [address] Irene Singletary MD Chronic migraine without aura without status migrainosus, not intractable (Primary Dx); Anxiety 12/03/[address] [address] Lissy Gracia MD Appointment Request 12/03/2024 Travel 11/29/[address] [phone] Lissy Gracia MD 11/29/[address] [address] Lissy Gracia MD Care Management (C3CM- f/u call) 11/28/2024 9:00 AM EST Office Visit [facility] [address] [place] [phone] Wendi Pedroza Dental calculus (Primary Dx); Dental plaque; Subgingival dental calculus 11/28/[address] [address] Lissy Gracia MD Chronic bilateral low back pain, unspecified whether sciatica present 11/27/2024 Patient Outreach [address] [address] Lissy Gracia MD Care Coordination ([facility]3 -[facility] Ammy Ziegler telephone call outreach) 11/26/2024 1:15 PM EST Office Visit [address] [address] Lissy Gracia MD Fibromyalgia (Primary Dx); Chronic migraine without aura without status migrainosus, not intractable 11/26/[address] [address] Susana Casillas [place] Pain group 11/26/2024 Patient Outreach [address] [address] Lissy Gracia MD Care Coordination ([facility] telephone call outreach/) 11/26/2024 Travel 11/26/2024 Patient Outreach [facility] [address] [place] [address] Lissy Gracia MD Care Coordination ([facility]3 -[facility] telephone call outreach) 11/25/2024 Patient Outreach [address] [address] Lissy Gracia MD Care Coordination ([facility] -[facility] telephone call outreach) 11/21/2024 Refill [facility] [address] [place] [phone] Candice Moreland DO 11/19/2024 1:15 PM EST Office Visit [address] [address] Lissy Gracia MD Fibromyalgia (Primary Dx); Chronic migraine without aura without status migrainosus, not intractable 11/19/2024 8:00 AM EST Office Visit [facility] [address] [place] [phone] Ciro Rockwell, PENNIE Retained dental root (Primary Dx) 11/19/2024 Travel 11/19/2024 Refill [facility] [address] [place] [phone] Lissy Gracia MD 11/19/2024 Patient Outreach [address] [address] Lissy Gracia MD Transition Of Care (Tcm) 11/18/2024 9:00 AM EST Office Visit [address] [address] Irene Singletary MD Chronic migraine without aura without status migrainosus, not intractable (Primary Dx); Anxiety 11/18/2024 Telephone [facility] [address] [place] [address] Lissy Gracia MD Lab Orders 11/18/2024 Patient Outreach [address] [address] Lissy Gracia MD Care Coordination ([facility]mm[facility] telephone call outreach) 11/18/2024 Travel 11/15/[address] [address] Reinaldo Persaud RN Care Management (C3- f/u call) 11/14/2024 1:40 PM EST Office Visit [facility] [address] [place] [phone] Candice Moreland, Mild persistent asthma without complication (Primary Dx) 11/12/2024 1:15 PM EST Office Visit [address] [address] Lissy Gracia MD Chronic migraine without aura without status migrainosus, not intractable (Primary Dx) 11/12/2024 Travel 11/11/2024 11:00 AM EST Office Visit [address] [address] Lissy Gracia MD Fibromyalgia (Primary Dx); Thrush, oral 11/11/2024 9:15 AM EST Office Visit [address] [phone] Irene Singletary MD Chronic migraine without aura without status migrainosus, not intractable (Primary Dx); Anxiety 11/08/2024 Patient Outreach [address] [address] Lissy Gracia MD Care Coordination ([facility]3 -[facility] Ammy [facility]ler telephone call outreach) 11/07/2024 1:20 PM EST Office Visit [facility] [address] [place] [phone] Candice Moreland DO Mild persistent asthma with acute exacerbation (Primary Dx) 11/07/2024 9:00 AM EST Office Visit [address] [phone] Irene Singletary MD Chronic migraine without aura without status migrainosus, not intractable (Primary Dx); Anxiety 11/07/2024 Patient Outreach [address] [phone] Lissy Gracia MD 11/07/2024 Travel 11/05/2024 1:15 PM EST Office Visit [facility] [facility] [place] [address] Lissy Gracia MD Fibromyalgia (Primary Dx); Chronic migraine without aura without status migrainosus, not intractable; Tendency toward bleeding easily (CMS/HCC) 11/05/2024 Telephone [facility] [place] [address] Reinaldo Persaud RN Care Management (C3CM- initial assessment/ enrollment.) 11/05/2024 Patient Outreach [facility] [place] [address] Lissy Gracia MD Care Coordination ([facility]3 -[facility] Ammy [facility]ler telelphone call outreach) 11/05/2024 Refill [facility] [place] [address] Lissy Gracia MD Bronchitis 11/05/2024 Travel 10/31/2024 9:30 AM EST Office Visit [facility] [place] [address] Irene Singletary MD Chronic migraine without aura without status migrainosus, not intractable (Primary Dx); Anxiety 10/31/2024 Travel 10/30/2024 Patient Outreach [facility] [place] [address] Lissy Gracia MD Care Coordination ([facility]3 -[facility] telephone call outreach) 10/30/[address] [address] Reinaldo Persaud RN Care Management (C3- chart review) 10/30/2024 Orders Only [facility] External Provider, [facility] 10/29/2024 8:40 AM EST Office Visit [facility] [address] [address] Rosana Cotton MD Upper back pain (Primary Dx); Chronic cough 10/29/[address] [address] Anitha Reed, LILIANE Results 10/28/2024 11:00 AM EST Office Visit [facility] [address] [place] [address] Lissy Gracia MD Fibromyalgia (Primary Dx); Bleeding from the ear, left; Chronic migraine without aura without status migrainosus, not intractable 10/28/2024 9:00 AM EST Office Visit [facility] [address] [place] [address] Irene Singletary MD Chronic migraine without aura without status migrainosus, not intractable (Primary Dx); Anxiety 10/28/2024 Travel 10/24/2024 2:00 PM EST Office Visit [facility] [address] [place] [phone] Rosana Cotton MD Viral gastroenteritis (Primary Dx); Cough in adult patient 10/24/2024 10:30 AM EST Office Visit [facility] [address] [place] [address] Irene Singletary MD Chronic migraine without aura without status migrainosus, not intractable (Primary Dx); Anxiety 10/24/2024 Travel 10/24/[address] [address] Lissy Gracia MD Nurse Triage 10/23/2024 Orders Only GENERIC EXTERNAL DATA DEPARTMENT Provider, Generic External Data 10/22/2024 2:30 PM EST Office Visit [facility] [address] [place] [address] Marshall, Betty, OD Diabetes type 2, no ocular involvement ([facility]) (Primary Dx); Bilateral retinal lattice degeneration; Combined 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-related cataract of both eyes; Presbyopia 10/22/2024 1:15 PM EST Office Visit [facility] [address] [place] [address] Lissy Gracia MD Chronic migraine without aura without status migrainosus, not intractable (Primary Dx); Type 2 diabetes mellitus without complication, without long-term current use of insulin (CMS/HCC); Cellulitis of head except face; Mild persistent asthma without complication; Diabetes due to underlying condition w oth circulatory comp (CMS/HCC) 10/22/2024 Orders Only GENERIC EXTERNAL DATA DEPARTMENT Provider, Generic External Data 10/22/2024 Travel 10/21/2024 Telephone [facility] [address] [place] [address] Susana Casillas MA Pain Group Appt from Last 3 Months Immunizations Name Administration [...] your housing situation today? I have priscila aixa 12/04/[address] you li [...] Description 01/20/2025 11:00 AM EDT Office Visit [facility] [address] [place] [address] 01/22/2025 9:00 AM EDT Office Visit [facility] [address] [place] [address] Wendi Pedroza 03/14/2025 2:15 PM EDT Office Visit [facility] [address] [place] [address] Lissy Gracia MD [address] [place] [address] Health Maintenance Due Date Last Done Comments [...] X-Ray: [facility] 08/20/2025 08/19/20 24, 10/12/2017, 11/27/2013 SDOH Screening 12/04/2025 12/04/2024 Tobacco Screening 01/14/2026 01/14/2025 Eye Exam 10/22/2026 10/22/2024, 04/2025, 10/22/2024, Additional [...] complication, without long-term current use of insulin ([facility]) HEMOGLOBIN A1C Routine 10/22/2024 3:49 PM EST Type 2 diabetes mellitus without complication, without long-term current use of insulin ([facility]) PROPHYLAXIS - ADULT Routine 09/11/2024 2 :00 [...] to underlying condition w oth circulatory comp ([facility]) PAP SMEAR Routine 11/22/2023 1:51 PM EST [...] Results * T-SPOT??.TB (11/25/2024 9:40 AM EST) T Spot TB Negative Negative [facility] Comment:A negative test resu lt [...] as aquantitative test. TS PANEL A 0 [facility] TS PANEL B 0 [facility] Negative Control Passed [facility] Positive Control Passed [facility] Comment:For additional infor bobby, please refer tohttp://education.Contently/faq/QWB973(This link is being provided for informational/educational purposes only.)THIS TEST WAS PERFORMED AT:[employer] [id number] [place] [address]VHJGITYBHARAT MAXWELL MD,PHD 11/25/2024 9:40 AM EST 11/25/2024 11:06 AM EST Lissy Gracia MD LAB BLOOD ORDERABLES Final Res ult Performing Organization Address [facility] de Phone Number [facility] [address] [place] [phone] * (ABNORMAL) Reticulocyte Count (11/25/2024 9:40 AM EST) Reticulocytes Absolute 0.072 0.026 - 0.095 X10*6/uL [facility] Immature Retic Fraction 15.0 3.0 - 15.9 % [facility] Retic HGB Equivalent 27.9(L) 30.0 - 35.0 pg [facility] Reticulocyte Percent 1.4 0.5 - 1.8 % [facility] Blood Venous blood specimen / Unknown 11/25/2024 9:40 AM EST 11/25/2024 11:06 AM EST Lissy Gracia MD LAB BLOOD ORDERABLES Final Res ult Performing Organization Address [facility] de Phone Number [facility] [address] [place] [phone] * Ferritin (11/25/2024 9:40 AM EST) Ferritin 22 10 - 250 ng/mL [facility] Blood Venous blood specimen / Unknown 11/25/2024 9:40 AM EST 11/25/2024 11:06 AM EST Lissy Gracia MD LAB BLOOD ORDERABLES Final Res ult Performing Organization Address [facility] Co de Phone Number [facility] [address] [place] [phone] * Influenza B (ID NOW Rapid Molecular) (11/14/2024 1:52 PM EST) Only the most recent of3 resultswithin the time period is included. Influenza B Negative Negative, Indeterminate [facility] Swab 11/14/2024 1:52 PM EST Candice Moreland DO POINT OF CARE TEST ENTER/GOPAL T ORDERABLES Final Result Performing Organization Address [facility]/ZIP Co de Phone Number [facility] [address] [place] [phone] * Influenza A (ID NOW Rapid Molecular) (11/14/2024 1:52 PM EST) Only the most recent of3 resultswithin the time period is included. Influenza A Negative Negative, Indeterminate [facility] Swab 11/14/2024 1:52 PM EST Candice Moreland DO POINT OF CARE TEST ENTER/GOPAL T ORDERABLES Final Result Performing Organization Address [facility] Co de Phone Number [facility] [address] [place] [phone] * POCT Rapid COVID Ag (11/14/2024 1:52 PM EST) Only the most recent of3 resultswithin the time period is included. Rapid COVID Ag Negative [facility] Swab 11/14/2024 1:52 PM EST Candice Aniceto DO POINT OF CARE TEST ENTER/GOPAL T ORDERABLES Final Result Performing Organization Address [facility] Co de Phone Number [facility] [address] [place] [phone] * POCT rapid strep A manually resulted (11/14/2024 1:52 PM EST) Rapid Strep A Screen Negative Negative, None Detected [facility] Swab 11/14/2024 1:52 PM EST us Candice Moreland DO POINT OF CARE TEST ENTER/GOPAL T ORDERABLES Final Result [facility] [address] [place] [address] [phone] * XR Chest 2 Views (10/30/2024 1:42 AM EST) Anatomical Region Laterality Modality Chest Radiographic Liss ging 10/30/2024 1:42 AM EST Narrative 10/30/2024 1:44 AM EST ? [facility] ?[address] ?[place] [address] ?XRay Report ? Signed ? Patient: Irene Garcia ?MR#: ?? [id number] ? : 1975 ?Acct:[id number] ? Age/Sex: 48 / F ?ADM Date: 10/30/24 ? Loc: HO.ED ? Attending Dr: ? Ordering Physician: Generic ED Physician ?? Date of Service: 10/30/24 ?? Procedure(s): XR chest 2V ?? Accession Number(s): [id number] ? cc: Generic ED Physician; [facility] ? CLINICAL HISTORY: cough, lung pain [...] in OV> ? 10/30/24 0143 ? DD/ 014 ? TD/TT: 10/30/24 014 ? Nick Setter: ? Procedure Note Bayron, Image - 10/30/[address] [address] XRay Report Signed Patient: Susu Garcia#: [id number] : 1975Acct:[id number] Age/Sex: 48 / FADM Date: 10/30/24 Loc: HO.ED Attending Dr: Ordering Physician: Generic ED Physician Date of Service: 10/30/24 Procedure(s): XR chest 2V Accession Number(s): [id number] cc: Generic ED Physician; [facility] CLINICAL HISTORY: cough, lung pain 2 [...] in OV> 10/30/24142 DD/ 1 TD/TT: 10/30/24141 Nick Setter: [facility] External Provider IMG XR PROCEDURES Final Result * SARS-CoV-2 RNA, Influenza A/B, and RSV RNA, Ql NAAT (10/30/2024 1:09 AM EST) Influenza A PCR NEGATIVE Negative [facility] Influenza B PCR NEGATIVE Negative [facility] Resp Syncy Virus RNA Qual PCR NEGATIVE Negative [facility] SARS COV2 PCR NEGATIVE Negative [facility] Comment:All test results mus [...] use by authorized laboratories.Testing performed on the [employer] GeneXpert utilizingreal-time RT-PCR.All SARS CoV2 and positive influenza A/B results arereported to [place] OR[facility]KE. 10/30/2024 1:09 AM EST 10/30/2024 1:12 AM EST us Generic External Data Provider LAB MICROBIOLOGY - GENERAL ORDERABLES Final Result [facility] [address] [place] [address] [phone] * (ABNORMAL) CBC auto differential (10/28/2024 12:08 PM EST) White Blood Count 6.1 4.8 - 10.8 X10*3/uL [facility] Red Blood Count 4.85 4.20 - 5.50 X10*6/uL [facility] Hemoglobin 12.1 12.0 - 16.0 g/dl [facility] Hematocrit 37.4 37.0 - 47.0 % [facility] Mean Corpuscular Volume 77.1(L) 80.0 - 98.0 fL [facility] Mean Corpuscular Hemoglobin 24.9(L) 27.0 - 33.0 pg [facility] Mean Corpuscular HGB Conc 32.4 31.0 - 35.0 g/dl [facility] Red Cell Distribution Width 15.3 11.0 - 16.0 % [facility] Platelet Count 369 160 - 400 X10*3/uL [facility] Mean Platelet Volume 9.6 9.4 - 12.3 fL [facility] Neutrophils Percent Auto 56.2 45 - 73 % [facility] Imm Gran Pct Auto 0.3 0.0 - 0.4 % [facility] Lymphocytes Percent Auto 34.7 20 - 40 % [facility] Monocytes Percent Auto 7.1 2 - 11 % [facility] Eosinophils Percent Auto 1.2 0 - 4 % [facility] Basophils Percent Auto 0.5 0 - 2 % [facility] NRBC Pct Auto 0.0 0.0 - 0.2 /100WBC [facility] Neutrophils Absolute Auto 3.4 2.0 - 8.3 x10*3/uL [facility] Imm Gran Abs Auto 0.02 0.00 - 0.03 X10*3/uL [facility] Lymphocytes Absolute Auto 2.1 1.2 - 4.9 X10*3/uL [facility] Monocytes Absolute Auto 0.4 0.1 - 1.2 X10*3/uL [facility] Eosinophils Absolute Auto 0.1 0.0 - 0.4 X10*3/uL [facility] Basophils Absolute Auto 0.0 0.0 - 0.2 X10*3/uL [facility] NRBC Abs Auto 0.000 0.0 - 0.012 X10*3/uL [facility] Blood Venous blood specimen / Unknown 10/28/2024 12:08 PM EST 10/28/2024 1:08 PM EST us Lissy Gracia MD LAB BLOOD ORDERABLES Final Res ult [facility] [address] [place] [phone] * (ABNORMAL) Prothrombin Time-INR (10/28/2024 12:08 PM EST) Prothrombin Time 10.8(L) 10.9 - 12.4 SEC [facility] INTERNATIONAL NORM RATIO 0.9 0.9 - 1.1 [facility] Comment:INTERNATIONAL NORMAL IZED RATIO (INR) [...] ORDERABLES Final Res ult Performing Organization Address [facility]/ZIP Co de Phone Number [facility] [address] [place] [phone] * High Sensitivity Troponin I (10/23/2024 10:11 PM EST) TROPONIN I HIGH SENSITIVITY <2.7 <3.5 - 17.0 ng/L [facility] Comment:The [employer] high sens itivity Troponin-I results should beused in conjunction with other diagnostic information suchas ECG, clinical observations and information, and patientsymptoms to aid in the diagnosis of [place]. 10/23/2024 10:1 1 PM EST 10/24/2024 1:15 AM EST Generic External Data Provider LAB BLOOD ORDERAB LES Final Result Performing Organization Address [facility] Co de Phone Number [facility] [address] [place] [address] [phone] * (ABNORMAL) Hemoglobin A1c (10/22/2024 3:49 PM EST) Hemoglobin A1c 8.7(H) <6.0 % [facility] Comment:Hemoglobin A1C Refer ence Range Adults: 4.8 - 6.0 % Non diabetic: < 6.0 % Goal: < 7.0 %Additional Action Suggested: > 8.0 %Note: Hemoglobin A1c results are invalid for patients with abnormal amounts of HbF. Blood transfusions may impact the HbA1c concentration in the patient sample. Estimated Average Glucose 203 mg/dL [facility] Comment:eAG = Estimated ave rage glucose which is %A1C expressed asaverage glucose, using the formula of the N8G-[id number] Glucose study (ADAG), Diabetes Care, Vol.31,#8,2007 Blood Venous blood specimen / Unknown 10/22/2024 3:49 PM EST 10/22/2024 5:46 PM EST us Lissy Gracia MD LAB BLOOD ORDERABLES Final Res ult Performing Organization Address [facility] Co de Phone Number [facility] [address] [place] [phone] * Immunoglobulin E (10/22/2024 3:49 PM EST) Pathologist [facility] Immunoglobulin E 3 <PZ=401 kU/L [facility] Comment:THIS TEST WAS PERFOR MED AT:[employer] [place] [phone] HEIN MD 10/22/2024 3:49 PM EST 10/22/2024 5:46 PM EST us Generic External Data Provider LAB BLOOD ORDERAB LES Final Result Performing Organization Address [facility] de Phone Number [facility] [address] [place] [phone] * (ABNORMAL) Comprehensive Metabolic Panel (10/22/2024 3:49 PM EST) [facility] Sodium 137 135 - 145 mmol/L [facility] Potassium 3.9 3.3 - 5.1 mmol/L [facility] Chloride 109(H) 96 - 108 mmol/L [facility] Carbon Dioxide 23 22 - 29 mmol/L [facility] Anion Gap 9(L) 12 - 20 [facility] Urea Nitrogen (BUN) 15 9 - 16 mg/dL [facility] Creatinine, Serum 0.69 0.5 - 1.4 mg/dL [facility] Estimated Glomerular Filt Rate >60 [facility] Comment:Chronic Kidney Disea se: Estimated GFR < 60 mL/min/1.12x0Nyrrmf Kidney Disease: Estimated GFR < 15 mL/min/1.73m2 Glucose 182(H) 60 - 115 mg/dL [facility] Calcium 9.0 8.4 - 10.2 mg/dL [facility] Bilirubin, Total 0.2 0.0 - 1.0 mg/dL [facility] Aspartate Amino Transferase 21 5 - 31 U/L [facility] Alanine Aminotransferase 26 0 - 31 U/L [facility] Total Protein 7.2 6.5 - 8.0 g/dL [facility] Albumin Level 4.3 3.5 - 5.0 g/dL [facility] Alkaline Phosphatase 90 39 - 117 U/L [facility] Blood Venous blood specimen / Unknown 10/22/2024 3:49 PM EST 10/22/2024 5:46 PM EST us Lissy Gracia MD LAB BLOOD ORDERABLES Final Res ult Performing Organization Address [facility]/State/ZIP Co de Phone Number [facility] [address] [facility] [place] [address] [phone] * BI Mammogram Screening Tomosynthesis Bilateral (01/11/2024 2:45 PM EDT) Anatomical Region Laterality Modality Breast Bilateral Mammography 01/11/2024 2:45 PM EDT Narrative 02/06/2024 6:07 AM EDT ? [facility] [place] ? [address] ?[place] [address] ? Mammography Report ? Signed ? Patient: Irene Garcia ?MR#: ?? [id number] ? : 1975 ?Acct:[id number] ? Age/Sex: 48 / F ?ADM Date: 03/28/24 ? Loc: HO.MAMMO ? Attending : Lissy Gracia MD ? Ordering Physician: Lissy Gracia ?Results: 1Negative ? Date of Service: 01/11/24 ?Follow Up: 1 Year From Orig ?? inal Mammogram ? Procedure(s): MM tomosynthesis screening BI ?? Accession Number(s): [id number] ? cc: Lissy Gracia ? EXAMINATION: ?? [...] by Joi Rivera MD in OV> ? 02/06/24603 ? DD/ ? TD/TT: ? Nick Setter: ? Procedure Note John Verma - 02/06/2024 [facility] [address] [place], [place] [address] Mammography Report Signed Patient: Irene GarciaMR#: [id number] : 1975Acct:[id number] Age/Sex: 48 / FADM Date: 01/11/24 Loc: ELIEChuyMAMMO Attending Dr: Lissy Gracia MD Ordering Physician: Rodriguez Graciaults: 1Negative Date of Service: 01/11/24Follow Up: 1 Year From Orig inal Mammogram Procedure(s): MM tomosynthesis screening BI Accession Number(s): [id number] cc: Lissy Gracia EXAMINATION: MM SCREENING DIGITAL [...] in OV> 02/06/24 0604 DD/ 1445 TD/TT: Nick Setter: Lissy Gracia MD IM BI PROCEDURES Final Result * Lipid Panel, Standard (12/25/2023 9:46 AM EDT) Triglycerides 44 <150 mg/dL [facility] Comment:Desirable Triglyceri de: less than 150 mg/dLBorderline High Triglyceride 150-199 mg/dLHigh Triglyceride: 200-499 mg/dLVery High Triglyceride: greater than or equal to 5OO mg/dL Cholesterol 145 <200 mg/dL [facility] Comment:Desirable Cholestero l: less than 200 mg/dLBorderline High Cholesterol: 200-239 mg/dLHigh Cholesterol: greater than 239 mg/dL LDL Cholesterol Calculated 64 <100 mg/dL [facility] Comment:Desirable LDL: less than 100 mg/dLNear Optimal/Above Optimal LDL: 110- 129 mg/dLBorderline High LDL: 130-159 mg/dLHigh LDL: 160-189 mg/dLVery High LDL: greater than or equal to 190 mg/dL HDL Cholesterol 73 >40 mg/dL [facility] Comment:Desirable HDL: great er than 40 mg/dL Note: This HDL assay may give artificially low results in patients with liver disease. Blood Venous blood specimen / Unknown 12/25/2023 9:46 AM EDT 12/25/2023 11:04 AM EDT us Lissy Gracia MD LAB BLOOD ORDERABLES Final Res ult [facility] [address] [place] [phone] * Pap Smear (11/22/2023 1:51 PM EST) 11/22/2023 1:51 PM EST 11/24/2023 8:30 AM EST Narrative [facility] - 12/04/2023 10:46 AM EST ----- ------- Name: Irene Garcia ?Age/Sex: 47/F ? : 1975 Unit#: [id number] ?? Attend Dr: ManuelClare NOBLE ?Re11/22/23 ?Status: DEP REF ? Location: HO.LNP ?Disch: ? ----- ------- SPEC : [id number] ? RECD: 11/24/23 ? STATUS: ??SOUT ? REQ NUM: [id number] ? CHENG: 11/22/23-1351 ? SUBM DR: ManuelClare NOBLE ? ENTERED: ??11/24/23-1109 ?SP TYPE: Pap Smr ?OTHR DR: Lissy [...] Not Detected ? HPV testing performed by [facility] [facility], [place], [place]. ??See reference laboratory ?? portion of the EMR for entire report. ?Clinical Information LMP: 11/14/23 Previous PAP test: 09/12/22, HPV+ ? Material Received ?? ThinPrep-Cervical Copies To: ?? Lissy Gracia ?? [address] ?? [place] [address] ?? [phone] ?? Clare Jackson ?? [address] [place] [facility] ?? [place] [address] ?? [phone] ----- ------- Signed (signature on file) Candelaria Raquel 12/04/23 1046 ? ----- ------- ? END OF REPORT ? us Generic External Data Provider LAB CYTOLOGY ORDE RABIVONNE Final Result Performing Organization Address [facility] Co de Phone Number [facility] [address] [place] [phone] * Albumin, Random Urine W/Creatinine (11/06/2023 2:33 PM EST) Creatinine, Urine 59.51 mg/dL [facility] Microalbumin Urine 14.0 mg/L [facility] Microalbum Creatinine Ratio Ur 23.5 <30 ug/mg cr [facility] Comment:Albumin/Creatinine R atio Reference Ranges: Normal: < 30 ug/mg creatinine Microalbuminuria: 30 - 300 ug/mg creatinineClinical Albuminuria: > 300 ug/mg creatinine Urine (Urine, Random) 11/06/2023 2:33 PM EST 11/06/2023 4:16 PM EST us Lissy Gracia MD LAB URINE ORDERABLES Final Res ult Performing Organization Address [facility] Co de Phone Number [facility] [address] [place] [phone] * (ABNORMAL) HPV mRNA E6/E7 w/Reflex to HPV Genotypes 16, 18/45 (09/12/2022 9:53 AM EST) HPV nRNA E6/E7 Detected(A ) Not Detected [facility] Comment:Methodology: Transcr iption-Mediated AmplificationThis assay detects E6/E7 viral messenger RNA (mRNA) from 14high-risk HPV types (16,18,31,33,35,39,45,51,52,56,58,59,66,68).Cervical sources are required for HPV testing.If a vaginal source from a patient who has had atotal hysterectomy with removal of cervix wassubmitted, please contact the testing laboratoryfor alternative testing options.For additional information, please refer tohttp://education.Contently/faq/QXY718u4(This link if provided for information/educational purposes only.)THIS TEST WAS PERFORMED AT:[employer],[place] [phone] HEIN MD HPV 16 RNA NOT DETECTED NOT DETECTED [facility] HPV 18/45 RNA NOT DETECTED NOT DETECTED [facility] Comment:Methodology: Transcr iption Mediated AmplificationCervical sources are required for HPV testing.If a vaginal source from a patient who has had atotal hysterectomy with removal of cervix wassubmitted, please contact the testing laboratoryfor alternative testing options.THIS TEST WAS PERFORMED AT:[employer] [place] [address],[place] [phone] HEIN MD 09/12/2022 9:53 AM EST 09/12/2022 12:00 PM EST [facility] External Provider LAB CYT OLOGY ORDERABLES Final Result Performing Organization Address [facility] Co de Phone Number [facility] [address] [place] [phone] * HEPATITIS C ANTIBODY (06/16/2020 12:35 PM EDT) Pathologist [facility] HEPATITIS C ANTIBODY NONREACTIVE NONREACTIVE [facility] Comment: Antibodies to HCV not detected; does not exclude early acute HCV infection. 06/16/2020 12:3 5 PM EDT Historical Provider HISTORICAL/NON ORDERABLE LABS Final Result Performing Organization Address [facility]/ZIP Co de Phone Number [facility] [address] * HIV AB/AG (06/16/2020 12:35 PM [...] detection of this assay. ?? The [employer] Assistant Corporate Controller HIV Ag/Ab Combo assay result and supplemental assay results should be interpreted in conjunction with the patient's clinical presentation, history and other laboratory results. ??If the results are inconsistent with clinical evidence, additional testing is suggested to confirm the result. 06/16/2020 12:3 5 PM EDT us Historical Provider HISTORICAL/NON ORDERABLE LABS Final Result Performing Organization Address City/State/[facility] Co de Phone Number [facility] [address] from Last 3 Months or Most Recently Relevant to Health Maintenance Insurance [facility] C[facility] HSN [facility] STAND ADULT Care Teams Intelligence Officer Relationship Specialty Start Date End Date Lissy Gracia MD [address] [place] [phone] PCP - General Family Medicine 06/07/21 Reinaldo Persaud, LILIANE [address] [place] [phone] Scarf GluerMedicare Interviewer 11/05/24
--- OUTSIDE RECORDS SUMMARY | 2025-01-15 11:03 | XMS_ITS | Encounter Summary ---
Author Organization [facility] Address [address] [place] [address] Care Team Providers Care Hot Die Press Feeder Name Role Phone Lissy Gracia MD Primary Care Provider [phone] Reinaldo Persaud RN Unavailable [phone] Reason for Visit * Reason Comments Med Refill Encounter Details Date Type Department Care Team (Late st Contact Info) Description 12/25/2022 Refill [facility] [address] [place] [phone] Adriana Ramesh MD [address] [place] [phone] Social History Tobacco Use Types Packs/Day Years [...] Description 01/20/2025 11:00 AM EDT Office Visit [facility] [address] [place] [address] [phone] 01/22/2025 9:00 AM EDT Office Visit [facility] ADULT DENTAL [address] [place] [address] [phone] Wendi Pedroza 03/14/2025 2:15 PM EDT Office Visit [facility] [address] [place] [address] [phone] Lissy Gracia MD [address] [place] [address] documented as of this encounter Visit Diagnoses Not on filedocumented in this encounter Care Teams Hot Die Press Feeder Relationship Specialty Start Date End Date Lissy Gracia MD [address] [place], [place] [phone] PCP - General Family Medicine 06/07/21 Reinaldo Persaud, LILIANE [address] [place] [phone] Class A LinemanSupervisor Machine Workers 11/05/24 documented as of this encounter
--- OUTSIDE RECORDS SUMMARY | 2025-01-15 11:03 | XMS_ITS | Encounter Summary ---
Author Organization [facility] Address [address] [place] [address] Care Team Providers Care Byproducts Extractor Name Role Phone Lissy Gracia MD Primary Care Provider [phone] Reinaldo Persaud RN Unavailable [phone] Reason for Visit * Reason Comments Med Refill Encounter Details Date Type Department Care Team (Late st Contact Info) Description 05/12/2023 Refill [facility] [address] [place] [phone] Lissy Gracia MD [address] [place] [phone] Social History Tobacco Use Types Packs/Day Years [...] 01/20/2025 11:00 AM EDT Office Visit [facility] [address] [place] [phone] 01/22/2025 9:00 AM EDT Office Visit [facility] [address] [place] [address], [place] [phone] Wendi Pedroza 03/14/2025 2:15 PM EDT Office Visit [facility] [address] [place], [place] [phone] Lissy Gracia MD [address] [place], [place] [phone] documented as of this encounter Visit Diagnoses Not on filedocumented in this encounter Care Teams Byproducts Extractor Relationship Specialty Start Date End Date Lissy Gracia MD [address] [place], [place] [phone] PCP - General Family Medicine 06/07/21 Reinaldo Persaud, LILIANE [address] [place] [phone] Line RiderWet Mixer 11/05/24 documented as of this encounter
--- OUTSIDE RECORDS SUMMARY | 2025-01-15 11:03 | XMS_ITS | Encounter Summary ---
Author Organization [employer] Address [address] [facility] [address] [place] [address] Care Team Providers Care Interior Decorator Paperhanging Name Role Phone Lissy Gracia MD Primary Care Provider [phone] Reinaldo Persaud RN Unavailable [phone] Reason for Visit * Reason Comments Acupuncture Encounter Details Date Type Department Care Team (Late st Contact Info) Description 01/14/2025 1:15 PM EDT Office Visit [facility] MED[facility]INE [address] [place] [address] Lissy Gracia MD 230 [place] [address] Chronic migraine without aura without status migrainosus, not intractable (Primary Dx); Acute eczematoid otitis externa of both ears; Fibromyalgia Social History Tobacco Use Types Packs/Day Years [...] Progress Notes * Lissy Gracia MD - 01/14/2025 1:15 PM EDT Subjective Patient ID: Irene Flower is a 49 y.o. female who presents for Acupuncture. Irene is here for ongoing acupuncture treatments for anxiety and migraine [place]. She is feeling better with decreased pain and stress. She notes that she has been having itching and flakiness with her ears in the past several days. Review of Systems Constitutional: Negative. Respiratory: Negative. Cardiovascular: Negative. Gastrointestinal: Negative. Skin: Positive for rash. Objective Physical Exam Constitutional: Appearance: Normal appearance. [...] weekly for repeat acupuncture treatments as desired. Problem List Items Addressed This Visit Chronic migraine without aura - Primary Fibromyalgia Acute eczematoid otitis externa of both ears Relevant Medications triamcinolone (Kenalog) 0.1 % cream clotrimazole (Lotrimin) 1 % cream documented in this encounter Plan of Treatment Upcoming Encounters Date Type Department Care Team (Late st Contact Info) Description 01/20/2025 11:00 AM EDT Office Visit [facility] MEDICINE [address] [place] [address] 01/22/2025 9:00 AM EDT Office Visit [facility] ADULT DENTAL [address] [place] [address] Wendi Pedroza 03/14/2025 2:15 PM EDT Office Visit [facility] MEDICINE [address] [place] [address] Lissy Gracia MD [address] [place] [address] documented as of this encounter Visit Diagnoses Diagnosis Chronic migraine without aura without status migrainosus, not intractable- Primary Acute eczematoid otitis externa of both ears Fibromyalgia Unspecified myalgia and myositis documented in this encounter Additional Health Concerns Assessment Noted Time PHQ-9 Depression Total Score: 0 02/05/20 24 1:47 PM EDT documented as of this encounter Care Teams Interior Decorator Paperhanging Relationship Specialty Start Date End Date Lissy Gracia MD [address] [place] [address] PCP - General Family Medicine 06/07/21 Reinaldo Persaud RN [address] [place] [address] Wastewater Treatment SupervisorCommercial Helicopter Pilot 11/05/24 documented as of this encounter
--- OUTSIDE RECORDS SUMMARY | 2025-01-15 11:03 | XMS_ITS | Encounter Summary ---
Author Organization [employer] [facility] Address [address] 7t [place] [address] Care Team Providers Care Private Secretary Name Role Phone Lissy Gracia MD Primary Care Provider [phone] Reinaldo Persaud RN Unavailable [phone] Reason for Visit * Reason Comments Med Refill Encounter Details Date Type Department Care Team (Late st Contact Info) Description 12/26/2022 Refill [facility] MED[facility]INE [address] [place] [address] Adriana Ramesh MD [address] [place] [address] Primary hypertension Social History Tobacco Use Types [...] Description 01/20/2025 11:00 AM EDT Office Visit [facility] MED[facility]INE [address] [place] [address] [phone] 01/22/2025 9:00 AM EDT Office Visit [facility] ADULT DENTAL [address] [place] [address] [phone] Wendi Pedroza 03/14/2025 2:15 PM EDT Office Visit [facility] MED[facility]INE [address] [place] [address] [phone] Lissy Gracia MD 230 [place] [address] documented as of this encounter Visit Diagnoses Diagnosis Primary hypertension Unspecified essential hypertension documented in this encounter Care Teams Private Secretary Relationship Specialty Start Date End Date Lissy Gracia MD 230 [place], [place] [phone] PCP - General Family Medicine 06/07/21 Reinaldo Persaud, LILIANE [address] [place] [address] Steel BurnerFolder Inspector 11/05/24 documented as of this encounter
--- OUTSIDE RECORDS SUMMARY | 2025-01-15 11:03 | XMS_ITS | Encounter Summary ---
Author Organization [employer] Address [address] [facility] [address]t [place] [address] Care Team Providers Care Civil Engineering Professor Name Role Phone Lissy Gracia MD Primary Care Provider [phone] Reinaldo Persaud RN Unavailable [phone] Reason for Referral * Consultation (STAT) - Closed Specialty Diagnoses / Procedures Referred By Contac t Referred To Contact Pulmonary Disease Diagnoses Mild persistent asthma without complication Lissy Gracia MD [address] [place] [address] Phone: tel: fax: [facility] Pulmonary [address] 1[address] Floor [place], [place] Phone: tel: fax: Referral ID Status Reason Start Date Expiration Date V isits Requested Visits Authorized [id number] Closed Specialty Services Required 09/02/2024 09/02/2025 6 6 Encounter Details Date Type Department Care Team (Late st Contact Info) Description 09/02/2024 Orders Only [facility] MEDICINE [address] [place] [address] Lissy Gracia MD [address] [place] [address] [phone] Mild persistent asthma without complication (Primary Dx) [...] Description 01/20/2025 11:00 AM EDT Office Visit [facility] MEDICINE [address] [place] [address] 01/22/2025 9:00 AM EDT Office Visit [facility] ADULT DENTAL [address] [place] [address] Wendi Pedroza 03/14/2025 2:15 PM EDT Office Visit [facility] MEDICINE [address] [place] [address] Lissy Gracia MD [address] [place] [address] Scheduled Referrals Name Type Priority Associated Diagnoses [...] documented as of this encounter Care Teams Civil Engineering Professor Relationship Specialty Start Date End Date Lissy Gracia MD [address] [place] [address] PCP - General Family Medicine 06/07/21 Reinaldo Persaud RN [address] [place] [address] Heading MakerField Laboratory Operator 11/05/24 documented as of this encounter
--- OUTSIDE RECORDS SUMMARY | 2025-01-15 11:03 | XMS_ITS | Encounter Summary ---
Author Organization [employer] Address [address] 7[address] [place] [address] Care Team Providers Care Railroad Car Cleaning Supervisor Name Role Phone Lissy Gracia MD Primary Care Provider [phone] Reinaldo Persaud RN Unavailable [phone] Reason for Visit * Reason Onset Date Comments Nurse Triage 05/22/2023 Encounter Details Date Type Department Care Team ([facility] st Contact Info) Description 05/22/2023 Telephone [facility] MEDICINE 230 [place] [address] Lissy Gracia MD 230 [place], [place] [phone] Nurse Triage Social History Tobacco Use Types [...] to report body pain . Patient speaks Malawian. Advised triage nurse will call patient back. documented in this encounter Plan of Treatment Upcoming Encounters Date Type Department Care Team (Late st Contact Info) Description 01/20/2025 11:00 AM EDT Office Visit [facility] [address] [place] [address] 01/22/2025 9:00 AM EDT Office Visit [facility] ADULT DENTAL [address] [place] [address] Wendi Pedroza 03/14/2025 2:15 PM EDT Office Visit [facility] MED[facility]INE [address] [place] [address] Lissy Gracia MD [address] [place] [address] documented as of this encounter Visit Diagnoses Not on filedocumented in this encounter Care Teams Railroad Car Cleaning Supervisor Relationship Specialty Start Date End Date Lissy Gracia MD [address] [place] [address] PCP - General Family Medicine 06/07/21 Reinaldo Persaud RN [address] [place] [address] Safety Deposit ClerkLumber Straightener 11/05/24 documented as of this encounter
--- OUTSIDE RECORDS SUMMARY | 2025-01-15 11:04 | XMS_ITS | Encounter Summary ---
Author Organization [employer] Address [address] [facility] [address]t [place] [address] Care Team Providers Care Electrical Engineering Intern Name Role Phone Lissy Gracia MD Primary Care Provider [phone] Reinaldo Persaud RN Unavailable [phone] Encounter Details Date Type Department Care Team ([facility] st Contact Info) Description 01/19/2024 Telephone [facility] MEDICINE 230 [place], [place] [phone] Lissy Gracia MD 230 [place] [address] Social History Tobacco Use Types Packs/Day Years [...] 01/20/2025 11:00 AM EDT Office Visit [facility] MEDICINE [address] [place] [address] 01/22/2025 9:00 AM EDT Office Visit [facility] ADULT DENTAL [address] [place] [address] Wendi Pedroza 03/14/2025 2:15 PM EDT Office Visit [facility] MEDICINE [address] [place] [address] Lissy Gracia MD [address] [place] [address] documented as of this encounter Visit Diagnoses Not on filedocumented in this encounter Additional Health Concerns Assessment Noted Time PHQ-9 Depression Total Score: 0 06/09/20 3:37 PM EDT documented as of this encounter Care Teams Electrical Engineering Intern Relationship Specialty Start Date End Date Lissy Gracia MD [address] [place] [address] PCP - General Family Medicine 06/07/21 Reinaldo Persaud RN [address] [place] [address] Environmental Restoration PlannerWarehouse Analyst 11/05/24 documented as of this encounter
--- OUTSIDE RECORDS SUMMARY | 2025-01-15 11:04 | XMS_ITS | Encounter Summary ---
Author Organization [employer] [facility] Address [address] [facility] [address] 7t [place] [address] Care Team Providers Care Wheat Buyer Name Role Phone Lissy Gracia MD Primary Care Provider Reinaldo Persaud RN Unavailable [phone] Encounter Details Date Type Department Care Team (Latest Contact Info) Description 04/10/2019 Abstract [facility] CONVERSIONS Dental, Provider, DDS Social History Tobacco [...] Care Team ( st Contact Info) Description 01/20/2025 11:00 AM EDT Office Visit [facility] MEDICINE [address] [place] [address] 01/22/2025 9:00 AM EDT Office Visit [facility] ADULT DENTAL [address] [place] [address] Wendi Pedroza 03/14/2025 2:15 PM EDT Office Visit [facility] MEDICINE [address] [place] [address] Lissy Gracia MD 230 [place] [address] documented as of this encounter Visit Diagnoses Not on filedocumented in this encounter Care Teams Wheat Buyer Relationship Specialty Start Date End Date Lissy Gracia MD 230 [place] [address] PCP - General Family Medicine 06/07/21 Reinaldo Persaud RN 505 [place] [address] Specification ManagerConsumer Marketing Manager 11/05/24 documented as of this encounter
--- OUTSIDE RECORDS SUMMARY | 2025-01-15 11:04 | XMS_ITS | Encounter Summary ---
Author Organization [employer] Address [address] [facility] [address] 7t [place] [address] Care Team Providers Care Geospatial Technician Name Role Phone Lissy Gracia MD Primary Care Provider [phone] Reinaldo Persaud RN Unavailable [phone] Reason for Visit * Reason Onset Date Comments Med Refill 06/20/2024 Encounter Details Date Type Department Care Team ([facility] st Contact Info) Description 06/20/2024 Telephone [facility] MEDICINE [address] [place] [address] Lissy Gracia MD 230 [place] [address] Med Refill Social History Tobacco Use Types [...] MG/0.5ML solution pen-injector To be sent to: [facility] [place], [place] - [address] [facility] documented in this encounter Plan of Treatment Upcoming Encounters Date Type Department Care Team (Late st Contact Info) Description 01/20/2025 11:00 AM EDT Office Visit [facility] MEDICINE [address] [place] [address] 01/22/2025 9:00 AM EDT Office Visit [facility] ADULT DENTAL [address] [place] [address] Kasia Wendi 03/14/2025 2:15 PM EDT Office Visit [facility] MEDICINE [address] [place] [address] Lissy Gracia MD 230 [place] [address] documented as of this encounter Visit Diagnoses Not on filedocumented in this encounter Additional Health Concerns Assessment Noted Time PHQ-9 Depression Total Score: 0 02/05/20 24 1:47 PM EDT documented as of this encounter Care Teams Geospatial Technician Relationship Specialty Start Date End Date Lissy Gracia MD [address] [place] [address] PCP - General Family Medicine 06/07/21 Reinaldo Persaud, LILIANE [address] [place] [address] Plant TechnicianAuto Mechanic 11/05/24 documented as of this encounter
--- OUTSIDE RECORDS SUMMARY | 2025-01-15 11:04 | XMS_ITS | Encounter Summary ---
Author Organization [employer] Address [address] [facility] [address] 7t [place] [address] Care Team Providers Care Die Caster Name Role Phone Lissy Gracia MD Primary Care Provider [phone] Reinaldo Persaud RN Unavailable [phone] Reason for Visit * Reason Onset Date Comments Appointment Request 10/17/2023 Encounter Details Date Type Department Care Team ([facility] st Contact Info) Description 10/17/2023 Telephone [facility] MEDICINE [address] [place], [place] [phone] Lissy Gracia MD 230 [place], [place] [phone] Appointment Request Social History Tobacco Use Types [...] follow up . Please contact pt @ [phone] Omani Speaker documented in this encounter Plan of Treatment Upcoming Encounters Date Type Department Care Team (Late st Contact Info) Description 01/20/2025 11:00 AM EDT Office Visit [facility] MEDICINE [address] [place] [address] 01/22/2025 9:00 AM EDT Office Visit [facility] ADULT DENTAL [address] [place] [address] Wendi Pedroza 03/14/2025 2:15 PM EDT Office Visit [facility] MEDICINE [address] [place] [address] Lissy Gracia MD [address] [place] [address] documented as of this encounter Visit Diagnoses Not on filedocumented in this encounter Additional Health Concerns Assessment Noted Time PHQ-9 Depression Total Score: 0 06/09/20 23 3:37 PM EDT documented as of this encounter Care Teams Die Caster Relationship Specialty Start Date End Date Lissy Gracia MD [address] [place] [address] PCP - General Family Medicine 06/07/21 Reinaldo Persaud RN [address] [place] [address] [place] [address] Technical Sales DirectorPhotocopying Machine Operator 11/05/24 documented as of this encounter
--- OUTSIDE RECORDS SUMMARY | 2025-01-15 11:04 | XMS_ITS | Encounter Summary ---
Author Organization [employer] Address [address] [facility] [address] 7t [place] [address] Care Team Providers Care Piano Case And Bench Assembler Name Role Phone Lissy Gracia MD Primary Care Provider [phone] Reinaldo Persaud RN Unavailable [phone] Reason for Visit * Reason Comments Med Refill Encounter Details Date Type Department Care Team ([facility] st Contact Info) Description 11/21/2024 Refill [facility] 230 [place] [address] Candice Moreland DO 230 [place] [address] Social History Tobacco Use Types Packs/Day Years [...] Description 01/20/2025 11:00 AM EDT Office Visit [facility] MEDICINE [address] [place] [address] 01/22/2025 9:00 AM EDT Office Visit [facility] ADULT DENTAL [address] [place] [address] Wendi Pedroza 03/14/2025 2:15 PM EDT Office Visit [facility] MEDICINE [address] [place] [address] Lissy Gracia MD [address] [place] [address] documented as of this encounter Visit Diagnoses Not on filedocumented in this encounter Additional Health Concerns Assessment Noted Time PHQ-9 Depression Total Score: 0 02/05/20 24 1:47 PM EDT documented as of this encounter Care Teams Piano Case And Bench Assembler Relationship Specialty Start Date End Date Lissy Gracia MD 230 [place] [address] PCP - General Family Medicine 06/07/21 Reinaldo Persaud RN [address] [place] [address] [address] [address] Roller EngineerRecords Administrator 11/05/24 documented as of this encounter
--- OUTSIDE RECORDS SUMMARY | 2025-01-15 11:04 | XMS_ITS | Encounter Summary ---
Author Organization [employer] Address [address] [facility] [address] 7t [place] [address] Care Team Providers Care Soaping Machine Back Tender Name Role Phone Lissy Gracia MD Primary Care Provider [phone] Reinaldo Persaud RN Unavailable [phone] Reason for Visit * Reason Comments Med Refill Encounter Details Date Type Department Care Team ([facility] st Contact Info) Description 12/20/2023 Refill [facility] MEDICINE 230 [place], [place] [phone] Lissy Gracia MD 230 [place], [place] [phone] Chronic bilateral low back pain, unspecified whether [...] 11:00 AM EDT Office Visit [facility] MEDICINE [address] [place] [address] 01/22/2025 9:00 AM EDT Office Visit [facility] ADULT DENTAL [address] [place] [address] Wendi Pedroza 03/14/2025 2:15 PM EDT Office Visit [facility] MEDICINE [address] [place] [address] Lissy Gracia MD [address] [place] [address] documented as of this encounter Visit Diagnoses Diagnosis Chronic bilateral low back pain, unspecified whether sciatica present documented in this encounter Additional Health Concerns Assessment Noted Time PHQ-9 Depression Total Score: 0 06/09/20 23 3:37 PM EDT documented as of this encounter Care Teams Soaping Machine Back Tender Relationship Specialty Start Date End Date Lissy Gracia MD [address] [place] [address] PCP - General Family Medicine 06/07/21 Reinaldo Persaud RN [address] [place] [address] Press CleanerGas Distribution And Emergency Clerk 11/05/24 documented as of this encounter
--- OUTSIDE RECORDS SUMMARY | 2025-01-15 11:04 | XMS_ITS | Clinical Summary ---
Author Organization [facility] Address [address] [place] [address] Care Team Providers Care Dental Ceramist Name Role Phone Unavailable Primary Care Provider [...] age to complete this topic [place]
--- OUTSIDE RECORDS SUMMARY | 2025-01-15 11:04 | XMS_ITS | Encounter Summary ---
Author Organization [employer] Address [address] [facility] [address] 7[address] [place] [address] Care Team Providers Care Inspector Optical Instrument Name Role Phone Lissy Gracia MD Primary Care Provider [phone] Reinaldo Persaud RN Unavailable [phone] Reason for Visit * Reason Comments Med Refill Encounter Details Date Type Department Care Team ([facility] st Contact Info) Description 08/19/2024 Refill [facility] MEDICINE 230 [place] [address] Adriana Ramesh MD 230 [place], [place] [phone] Type 2 diabetes mellitus with hyperglycemia, without long-term current use of insulin ([facility]) Social History Tobacco Use Types Packs/Day Years [...] Description 01/20/2025 11:00 AM EDT Office Visit [facility] MEDICINE [address] [place] [address] 01/22/2025 9:00 AM EDT Office Visit [facility] ADULT DENTAL [address] [place] [address] Wendi Pedroza 03/14/2025 2:15 PM EDT Office Visit [facility] MEDICINE [address] [place] [address] Lissy Gracia MD [address] [place] [address] documented as of this encounter Visit Diagnoses Diagnosis Type 2 diabetes mellitus with hyperglycemia, without long-term current use of insulin ([facility]) documented in this encounter Additional Health Concerns Assessment Noted Time PHQ-9 Depression Total Score: 0 02/05/20 24 1:47 PM EDT documented as of this encounter Care Teams Inspector Optical Instrument Relationship Specialty Start Date End Date Lissy Gracia MD 230 [place] [address] PCP - General Family Medicine 06/07/21 Reinaldo Persaud RN 505 [place] [address] Windows Server AdministratorCar Record Clerk 11/05/24 documented as of this encounter
--- OUTSIDE RECORDS SUMMARY | 2025-01-15 11:04 | XMS_ITS | Continuity of Care Document ---
Author Organization [facility] Address [address] [place] [address] Phone Care Team Providers Care Frame Gate Mortiser Operator Name Role Phone Madatovian, DO DO, [place] [...] Test strips apply 1 not specified by [facility].(non-drug; combo) route 3 times every day 1 [...] Diagnoses Date Provider Providers Copied on Encounter [facility], [address], [place], [place], [id number], [place] tel:[phone] [place] No Information 1 Madatovian, DO [place]. [address] [facility] [address], [address]. tel:[phone] [facility], [address], [place], [place], [id number], [place] tel:[phone] [place] No Information Dec-0 - 0 Madatovian, DO Harut. [address] [facility] [address], [place], [address]. tel:[phone] OV 15 MIN M/F [facility], [address], [place], [place], [id number], [place] tel:[phone] [facility] results (chief complaint) Insulin dependent diabetes mellitusLong term (current) use of insulinHyperlip idemia, unspecified hyperlipidemia type Madatovian, DO Har[place]. [address], [address]. tel:[phone] [facility], [address], [place], [place], [id number], [place] tel:[phone] [facility] Blood work only (chief complaint) No Information No Information OV 20 MIN M/F [facility], [address], [place], [place], [id number], [place] tel:[phone] [facility] blood test (chief complaint) weight loss (chief complaint) Encntr for general adult medical exam w/o abnormal findingsWeight lossHistory of uterine fibroid Madatovian, DO [place]. [address] [facility] [address], [address]. tel:[phone] Family History Family Member Type Diagnosis Age At Onset No Information Payers Payer name Insurance type Covered libertarian ID Authoriza tion(s) No Information Social History Type Description Quantity Date Captured Comments Sex Female Smoking Status No Information Chief Complaint And Reason For Visit No Information Reason For Referral Reason For Referral No Information Plan Of Treatment Date Type Action Status Goal Influenza vaccine. Due on due Goal Pneumococcal vaccine. Due on due Goal Lipid panel. Due on due Goal Dilated eye exam. Due on May due Goal Urine microalbumin. Due on due Goal Dental exam. Due on due Goal GFR. Due on due Goal Foot exam. Due on due Goal Hemoglobin A1C. Due on due Goal Depression screening. Due on due Goal Pap/HPV testing. Due on due Goal Tdap. Due on due Goal Complete Physica l Exam. Due on due Goal Depression screening. Due on due Goal Pap/HPV testing. Due on due Goal Lipid panel. Due on due Goal Tdap. Due on due Goal Influenza vaccine. Due on due Goal Complete Physica l Exam. Due on due Goal Lipid panel. Due on due Goal Influenza vaccine. Due on due Goal Depression screening. Due on due Goal Complete Physica l Exam. Due on due Goal Pap/HPV testing. Due on due Goal Tdap. Due on due Future Order: Lab Order CBC (INC LUDES DIFF/PLT) ([id number]), Ordered on: Ordered Future Order: Lab Order COMPREHE NSIVE METABOLIC PANEL ([id number]), Ordered on: Ordered Future Order: Lab Order HEMOGLOB IN A1C (496), Ordered on: Ordered Future Order: Lab Order LIPID PA BECCA ([id number]), Ordered on: Ordered Future Order: Lab Order THYROID PANEL WITH TSH, 3RD GENERATION ([id number]), Ordered on: Ordered Future Order: Lab Order URINALYS IS, COMPLETE ([id number]), Ordered on: Ordered Future Order: Lab Order C-REACTI VE PROTEIN ([id number]), Ordered on: Ordered Future Order: Lab Order SED RATE BY MODIFIED WESTERGREN (069), Ordered on: Ordered Future Order: Lab Order ALPHA FE TOPROTEIN, TUMOR MARKER (237), Ordered on: Ordered History Of Present Illness Encounter Date Complaint History Of Prese nt Illness Lab results Blood work only blood test weight loss The patient has lost 50.00lbs (22.73kgs) over a period of 2 year(s). The risk factors for weight loss include uterine fibroids. Pertinent negatives include decreased appetite, irregular heartbeat/palpitations and vomiting. Additional information: pt reports significant medical history of uterine fibroids that was treated in the past. pt reports slightly increased bleeding during menstrual cycle only compared to when they were normal. Functional Status Date Functional Assessmen t No [...] levels Related to Insulin dependent diabetes mellitus f/u pelvic US results Related to History of uterine fibroid labwork ordered, f/u resultsabd US and pelvic US ordered Related to Weight loss Assessments Type Assessment Date No Information Patient Care Teams Name Effective Dates (start - stop) Status Members No Information
--- OUTSIDE RECORDS SUMMARY | 2025-01-15 11:04 | XMS_ITS | Clinical Summary ---
Author Organization [facility] ity Address [address] [place] [address] Care Team Providers Care Printed Circuit Designer Name Role Phone Unavailable Primary Care Provider [...] - 2023-2 5 season) 2024 Influenza Vaccine (Season Ended) 2025 HIB Vaccines Aged Out No longer eligi [...]
== END ==
LOC: HO.CARD 09:44
PROVIDERS: PCP General Practice; Visit Provider Internal Medicine Cardiovascular Disease
DX: R07.89 Other chest pain (principal)
CPT/HCPCS: 93350; Q9957

== ENCOUNTER → 2025-01-15 09:47 | Outpatient (BNV) | payer MEDICAID, SELFPAY | PROVIDERS: PCP General Practice | DX: R07.9 Chest pain, unspecified (principal); R06.02 Shortness of breath | CPT/HCPCS: 93016; 93018; 93350; 93352 ==

== ENCOUNTER 2025-01-23 08:11 | Outpatient (REF) | payer MEDICAID, SELFPAY ==
--- OUTSIDE RECORDS SUMMARY | 2025-01-23 11:01 | XMS_ITS | Encounter Summary ---
Author Organization [employer] Address [address] [place] [address] Care Team Providers Care Refrigerator Glazier Name Role Phone Lissy Gracia MD Primary Care Provider [phone] Reinaldo Persaud RN Unavailable [phone] Reason for Visit * Reason Onset Date Comments Nurse Triage 05/22/2023 Encounter Details Date Type Department Care Team ([facility] st Contact Info) Description 05/22/2023 Telephone [facility] [address] [place] [address] Lissy Gracia MD [address] [place], [place] [phone] Nurse Triage Social History Tobacco Use Types [...] to report body pain . Patient speaks Sami. Advised triage nurse will call patient back. documented in this encounter Plan of Treatment Upcoming Encounters Date Type Department Care Team (Late st Contact Info) Description 03/14/2025 2:15 PM EDT Office Visit [facility] [address] [place] [address] Lissy Gracia MD [address] [place] [address] documented as of this encounter Visit Diagnoses Not on filedocumented in this encounter Care Teams Refrigerator Glazier Relationship Specialty Start Date End Date Lissy Gracia MD [address] [place] [address] PCP - General Family Medicine 06/07/21 Reinaldo Persaud RN [address] [place] [phone] Custom Van ConverterIp Network Architect 11/05/24 documented as of this encounter
--- OUTSIDE RECORDS SUMMARY | 2025-01-23 11:01 | XMS_ITS | Encounter Summary ---
Author Organization [employer] [facility] Address [address] [place] [address] Care Team Providers Care Clinical Operations Consultant Name Role Phone Lissy Gracia MD Primary Care Provider [phone] Reinaldo Persaud RN Unavailable [phone] Reason for Visit * Reason Comments Med Refill Encounter Details Date Type Department Care Team (Late st Contact Info) Description 05/12/2023 Refill [facility] [address] [place] [address] [phone] Lissy Gracia MD [address] [place] [address] [phone] Social History Tobacco Use Types Packs/Day Years [...] 2:15 PM EDT Office Visit [facility] [address] [place] [address] [phone] Lissy Gracia MD [address] [place] [address] [phone] documented as of this encounter Visit Diagnoses Not on filedocumented in this encounter Care Teams Clinical Operations Consultant Relationship Specialty Start Date End Date Lissy Gracia MD [address] [place] [address] PCP - General Family Medicine 06/07/21 Reinaldo Persaud RN [address] [place] [phone] Hydraulic Hammer OperatorNail Artist 11/05/24 documented as of this encounter
--- OUTSIDE RECORDS SUMMARY | 2025-01-23 11:01 | XMS_ITS | Encounter Summary ---
Author Organization [employer] Address [address] [place] [address] [address] [place] [address] Care Team Providers Care Charge Hand Name Role Phone Lissy Gracia MD Primary Care Provider [phone] Reinaldo Persaud RN Unavailable [phone] Reason for Visit * Reason Comments Med Refill Encounter Details Date Type Department Care Team (Late st Contact Info) Description 06/13/[address] [facility] [address] [place] [address] [phone] Chari Murray FNP [address] [place] [address] Dept [place] [address] Mild persistent asthma without complication Social History [...] Description 03/14/2025 2:15 PM EDT Office Visit [facility] [address] [place], [place] [phone] Lissy Gracia MD [address] [place] [address] documented as of this encounter Visit Diagnoses Diagnosis Mild persistent asthma without complication documented in this encounter Additional Health Concerns Assessment Noted Time PHQ-9 Depression Total Score: 0 06/09/20 23 3:37 PM EDT documented as of this encounter Care Teams Charge Hand Relationship Specialty Start Date End Date Lissy Gracia MD [address] [place] [address] PCP - General Family Medicine 06/07/21 Reinaldo Persaud RN [address] [place] [address] Leather CrafterIon Exchange Operator 11/05/24 documented as of this encounter
--- OUTSIDE RECORDS SUMMARY | 2025-01-23 11:01 | XMS_ITS | Encounter Summary ---
Author Organization [employer] [facility] Address [address] [place] [address] Care Team Providers Care Tunneller Name Role Phone Lissy Gracia MD Primary Care Provider Reinaldo Persaud RN Unavailable [phone] Reason for Visit * Reason Comments Med Refill Encounter Details Date Type Department Care Team (Late st Contact Info) Description 12/25/2022 Refill [facility] [address] [place] [phone] Adriana Ramesh MD [address] [place] [address] [phone] Social History Tobacco Use Types Packs/Day Years [...] Description 03/14/2025 2:15 PM EDT Office Visit [facility] [address] [place] [phone] Lissy Gracia MD [address] [place] [phone] documented as of this encounter Visit Diagnoses Not on filedocumented in this encounter Care Teams Tunneller Relationship Specialty Start Date End Date Lissy Gracia MD [address] [place] [address] PCP - General Family Medicine 06/07/21 Reinaldo Persaud RN [address] [place] [phone] 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
--- OUTSIDE RECORDS SUMMARY | 2025-01-23 11:01 | XMS_ITS | Clinical Summary ---
Author Organization [employer] Address [address] [place] [address] Care Team Providers Care Qa Developer Name Role Phone Lissy Gracia MD Primary Care Provider [phone] Reinaldo Persaud RN Unavailable [phone] Allergies No known active allergies Medications docusate sodium (Colace) 100 MG capsule Take 100 mg by mouth at bedtime. 022 Active famotidine (Pepcid) 40 MG tablet Take 40 mg by mouth at bedtime. 022 Active Blood Glucose Monitoring Suppl ([employer] Lite) w/Device kitIndications:Ty pe 2 diabetes mellitus with hyperglycemia, without long-term current use of insulin ([facility]) 1 kit 2 times daily. To [...] hyperglycemia, without long-term current use of insulin ([facility]) 1 each by Other route 2 [...] hyperglycemia, without long-term current use of insulin ([facility]) Inject 0.5 mL (1.5 mg) as [...] be having hypoglycemic episodes, including shaking in [place] where she hit her head Assessment & [...] 300mg daily Maintenance: Eye Exam: [facility] at [facility] 04/2022, next 04/2024 Diabetic foot exam: [...] 300mg daily Maintenance: Eye Exam: [facility] at [facility] 04/2022, next 04/2024 Diabetic foot exam: [...] for f/u Maintenance: Eye Exam: [facility] at [facility] 04/2022 Diabetic foot exam: 06/2022, decreased [...] for f/u Maintenance: Eye Exam: [facility] at [facility] 04/2022 Diabetic foot exam: 06/2022, decreased [...] for f/u Maintenance: Eye Exam: [facility] at [facility] 04/2022 Diabetic foot exam: 06/2022, decreased [...] for f/u Maintenance: Eye Exam: [facility] at [facility] 04/2022 Diabetic foot exam: 06/2022, decreased [...] for f/u Maintenance: Eye Exam: [facility] at [facility] 04/2022 Diabetic foot exam: 06/2022, decreased [...] Type Department Care Team Description 01/22/2025 Telephone [facility] MEDICINE [address] [place] [address] Lissy Gracia MD [facility] 01/22/2025 Patient Outreach [address] [address] Lissy Gracia MD Care Coordination (C3 CM-[facility] telephone call outreach) 01/21/[address] [address] Lissy Gracia MD Care Management (C3CM- f/u call) 01/21/2025 Patient Outreach [address] [address] Lissy Gracia MD Care Coordination (C3 CM-[facility] telephone call outreach) 01/20/2025 Patient Outreach [address] [address] Lissy Gracia MD Care Coordination (C3 CM-[facility] telephone call outreach) 01/14/2025 1:15 PM EDT Office Visit [address] [address] Lissy Gracia MD Chronic migraine without aura without status migrainosus, not intractable (Primary Dx); Acute eczematoid otitis externa of both ears; Fibromyalgia 01/14/2025 Patient Outreach [address] [address] Lissy Gracia MD Care Coordination (C3 CM-[facility] telephone call outreach /) 01/14/2025 Travel 01/09/2025 10:30 AM EDT Office Visit [address] [address] Irene Singletary MD Chronic migraine without aura without status migrainosus, not intractable (Primary Dx); Anxiety 01/09/2025 Travel 01/08/[address] [address] Lissy Gracia MD Care Management (C3CM- f/u call) 01/07/2025 1:15 PM EDT Office Visit [address] [address] Lissy Gracia MD Fibromyalgia (Primary Dx); Type 2 diabetes mellitus with hyperglycemia, without long-term current use of insulin ([facility]) 01/07/2025 Travel 01/06/2025 9:15 AM EDT Office [address] [place] [address] Irene Singletary MD Chronic migraine without aura without status migrainosus, not intractable (Primary Dx); Anxiety 01/06/2025 Patient Outreach [address] [address] Lissy Gracia MD Care Coordination (C3 CM-[facility] [employer] telephone call outreach) 01/06/2025 Patient Outreach [address] [address] Lissy Gracia MD Care Coordination (C3 CM-[facility] [employer] telephone call outreach) 01/06/2025 Travel 01/02/2025 Patient Outreach [address] [address] Lissy Gracia MD Care Coordination (C3 CM-[facility] [employer] telephone call outreach) 01/01/[address] [address] Lissy Gracia MD [facility] 12/31/2024 1:15 PM EDT Office Visit [address] [address] Lissy Gracia MD Fibromyalgia (Primary Dx); Chronic migraine without aura without status migrainosus, not intractable 12/31/2024 Travel 12/30/2024 11:00 AM EDT Office Visit [address] [address] Lissy Gracia MD Fibromyalgia (Primary Dx); Dietary counseling; Exercise counseling; Overweight; Daytime somnolence 12/30/2024 9:45 AM EDT Office Visit [address] [address] Irene Singletary MD Chronic migraine without aura without status migrainosus, not intractable (Primary Dx); Anxiety 12/30/2024 Telephone [facility] [place] [address] Lissy Gracia MD Prior Authorization ( ANJALI Request: Fredrick) 12/30/2024 Travel 12/27/2024 Telephone [facility] [place] [address] Lissy Gracia MD Schedule pain groupm(MONDAYS) 12/27/2024 Population Health Risk Score [facility] (C3) Department [address] [place] [phone] Provider, Population Health Generic 12/26/2024 Refill [facility] [place] [address] Lisys Gracia MD Cervical radiculopathy 12/24/2024 Telephone [facility] [place] [address] Lissy Gracia MD Care Management ([facility]- f/u call lv) 12/23/2024 9:00 AM EDT Office Visit [facility] [place] [address] Irene Singletary MD Chronic migraine without aura without status migrainosus, not intractable (Primary Dx); Anxiety 12/23/2024 Travel 12/20/2024 Patient Outreach [facility] [place] [address] Lissy Gracia MD Care Coordination ([address] A[facility]y [facility]ler telephone call outreach) 12/20/2024 Refill [facility] [place] [address] Lissy Gracia MD Cervical radiculopathy 12/19/2024 10:15 AM EST Office Visit [facility] [place] [address] Irene Singletary MD Chronic migraine without aura without status migrainosus, not intractable (Primary Dx); Anxiety 12/19/2024 Travel 12/17/2024 1:15 PM EST Office Visit [facility] [address] Lissy Gracia MD Fibromyalgia (Primary Dx) 12/17/2024 Travel 12/16/2024 Telephone [facility] MED[facility]INE [address] [place] [address] Lissy Gracia MD No Show 12/16/2024 Patient Outreach [address] [address] Lissy Gracia MD Care Coordination ([facility] telephone call outreach) 12/12/2024 Patient Outreach [address] [address] Lissy Gracia MD Care Coordination ([facility]3 CM[facility] telephone call outreach) 12/12/[address] [address] Lissy Gracia MD Care Management (C3CM- f/u call) 12/10/2024 1:15 PM EST Office Visit [address] [address] iLssy Gracia MD Fibromyalgia (Primary Dx); Chronic migraine without aura without status migrainosus, not intractable 12/10/2024 Travel 12/10/2024 Patient Outreach [address] [address] Lissy Gracia MD Care Coordination ([facility]3 CM[facility] telephone call outreach) 12/09/[address] [address] Lissy Gracia MD Allergic rhinitis, unspecified seasonality, unspecified trigger 12/06/2024 Patient Outreach [address] [address] Lissy Gracia MD Care Coordination (C3 CM[facility] telephone call outreach) 12/05/2024 9:30 AM EST Office Visit [address] [address] Irene Singletary MD Chronic migraine without aura without status migrainosus, not intractable (Primary Dx); Anxiety 12/05/2024 Outside Procedure [facility] OPTOM[facility] [address] [place] [address] Betty Olivares, OD Presbyopia (Primary Dx) 12/05/2024 Refill [facility] [address] [place] [address] Roscoe Alfaro MD 12/05/2024 Travel 12/04/2024 9:15 AM EST Office Visit [facility] [address] [place] [address] Betty Olivares, OD Hyperopia of both eyes (Primary Dx) 12/04/2024 Patient Outreach [address] [address] Lissy Gracia MD Care Coordination (C3 -[facility] telephone call outreach) 12/04/2024 Patient Outreach [address] [address] Lissy Gracia MD Pre-visit Planning (SDOH screening positive and tobacco screening negative) 12/04/2024 Travel 12/03/2024 9:45 AM EST Office Visit [address] [address] Irene Singletary MD Chronic migraine without aura without status migrainosus, not intractable (Primary Dx); Anxiety 12/03/[address] [address] Lissy Gracia MD Appointment Request 12/03/2024 Travel 11/29/[address] [phone] Lissy Gracia MD 11/29/[address] [address] Lissy Gracia MD Care Management (C3- f/u call) 11/28/2024 9:00 AM EST Office Visit [facility] ADULT DENTAL [address] [place] [address] Wendi Pedroza Dental calculus (Primary Dx); Dental plaque; Subgingival dental calculus 11/28/[address] [address] Lissy Gracia MD Chronic bilateral low back pain, unspecified whether sciatica present 11/27/2024 Patient Outreach [facility] [address] [place] [address] Lissy Gracia MD Care Coordination (C3 CM-[facility] telephone call outreach) 11/26/2024 1:15 PM EST Office Visit [address] [address] Lissy Gracia MD Fibromyalgia (Primary Dx); Chronic migraine without aura without status migrainosus, not intractable 11/26/2024 Telephone [facility] MED[facility] [address] [place] [address] Susana Casillas [place] Pain group 11/26/2024 Patient Outreach [address] [address] Lissy Gracia MD Care Coordination (C3 CM-[facility] telephone call outreach/) 11/26/2024 Travel 11/26/2024 Patient Outreach [address] [address] Lissy Gracia MD Care Coordination (C3 CM-[facility] telephone call outreach) 11/25/2024 Patient Outreach [address] [address] Lissy Gracia MD Care Coordination (C3 CM-[facility] telephone call outreach) 11/21/2024 Refill [facility] [address] [place] [address] Candice Moreland DO 11/19/2024 1:15 PM EST Office Visit [address] [address] Lissy Gracia MD Fibromyalgia (Primary Dx); Chronic migraine without aura without status migrainosus, not intractable 11/19/2024 8:00 AM EST Office Visit [facility] ADULT DENTAL [address] [place] [address] Ciro Rockwell, PENNIE Retained dental root (Primary Dx) 11/19/2024 Travel 11/19/2024 Refill [facility] MED[facility] [address] [place] [address] Lissy Gracia MD 11/19/2024 Patient Outreach [address] [address] Lissy Gracia MD Transition Of Care (Tcm) 11/18/2024 9:00 AM EST Office Visit [address] [address] Irene Singletary MD Chronic migraine without aura without status migrainosus, not intractable (Primary Dx); Anxiety 11/18/[address] [address] Lissy Gracia MD Lab Orders 11/18/2024 Patient Outreach [address] [address] Lissy Gracia MD Care Coordination (C3 -[facility] telephone call outreach) 11/18/2024 Travel 11/15/[address] [address] Reinaldo Persaud, LILIANE Care Management (C3CM- f/u call) 11/14/2024 1:40 PM EST Office Visit [facility] [address] [place] [address] Candice Moreland DO Mild persistent asthma without complication (Primary Dx) 11/12/2024 1:15 PM EST Office Visit [address] [address] Lissy Gracia MD Chronic migraine without aura without status migrainosus, not intractable (Primary Dx) 11/12/2024 Travel 11/11/2024 11:00 AM EST Office Visit [address] [address] Lissy Garcia MD Fibromyalgia (Primary Dx); Thrush, oral 11/11/2024 9:15 AM EST Office Visit [address] [address] Irene Singletary MD Chronic migraine without aura without status migrainosus, not intractable (Primary Dx); Anxiety 11/08/2024 Patient Outreach [address] [place] [address] Lissy Gracia MD Care Coordination (C3 CM-[facility] Ammy Z[facility]ler telephone call outreach) 11/07/2024 1:20 PM EST Office Visit [facility] [address] Candice Moreland DO Mild persistent asthma with acute exacerbation (Primary Dx) 11/07/2024 9:00 AM EST Office Visit [facility] [place] [address] Irene Singletary MD Chronic migraine without aura without status migrainosus, not intractable (Primary Dx); Anxiety 11/07/2024 Patient Outreach [address] [place] [address] Lissy Gracia MD 11/07/2024 Travel 11/05/2024 1:15 PM EST Office [address] [place] [address] Lissy Gracia MD Fibromyalgia (Primary Dx); Chronic migraine without aura without status migrainosus, not intractable; Tendency toward bleeding easily (CMS/HCC) 11/05/2024 Telephone [facility] [address] Reinaldo Persaud RN Care Management (C3CM- initial assessment/ enrollment.) 11/05/2024 Patient Outreach [address] [place] [address] Lissy Gracia MD Care Coordination (C3 -[facility] Ammy [facility]ler telelphone call outreach) 11/05/2024 Refill [facility] [address] Lissy Gracia MD Bronchitis 11/05/2024 Travel 10/31/2024 9:30 AM EST Office Visit [facility] [place] [address] Irene Singletary MD Chronic migraine without aura without status migrainosus, not intractable (Primary Dx); Anxiety 10/31/2024 Travel 10/30/2024 Patient Outreach [address] [place] [address] Lissy Gracia MD Care Coordination (C3 CM-[facility] telephone call outreach) 10/30/2024 Telephone [facility] [address] [place] [address] Reinaldo Persaud, LILIANE Care Management (C3CM- chart review) 10/30/2024 Orders Only [facility] External Provider, [facility] 10/29/2024 8:40 AM EST Office Visit [facility] [address] [place] [address] Rosana Cotton MD Upper back pain (Primary Dx); Chronic cough 10/29/2024 Telephone [facility] MED[facility]INE [address] [place] [address] Anitha Reed, RN Results 10/28/2024 11:00 AM EST Office Visit [address] [address] Lissy Gracia MD Fibromyalgia (Primary Dx); Bleeding from the ear, left; Chronic migraine without aura without status migrainosus, not intractable 10/28/2024 9:00 AM EST Office Visit [address] [address] Irene Singletary MD Chronic migraine without aura [...] Description 03/14/2025 2:15 PM EDT Office Visit [facility] MEDICINE [address] [place], [place] [phone] Lissy Gracia MD [address] [place], [place] [phone] Health Maintenance Due Date Last Done Comments [...] complication, without long-term current use of insulin ([facility]) PROPHYLAXIS - ADULT Routine 09/11/2024 2 :00 [...] to underlying condition w oth circulatory comp ([facility]) PAP SMEAR Routine 11/22/2023 1:51 PM EST [...] * T-SPOT??.TB (11/25/2024 9:40 AM EST) Pathologist [facility] T Spot TB Negative Negative [facility] Comment:A negative test resu lt [...] as aquantitative test. TS PANEL A 0 [facility] TS PANEL B 0 [facility] Negative Control Passed [facility] Positive Control Passed [facility] Comment:For additional infor bobby, please refer tohttp://education.[employer]/faq/ZKE785(This link is being provided for informational/educational purposes only.)THIS TEST WAS PERFORMED AT:[employer] [id number] [place] [address]XUYLPVYBHARAT MAXWELL MD,PHD 11/25/2024 9:40 AM EST 11/25/2024 11:06 AM EST Lissy Gracia MD LAB BLOOD ORDERABLES Final Res ult Performing Organization Address [facility] de Phone Number [facility] [address] [place] [phone] * (ABNORMAL) Reticulocyte Count (11/25/2024 9:40 AM EST) Reticulocytes Absolute 0.072 0.026 - 0.095 X10*6/uL [facility] Immature Retic Fraction 15.0 3.0 - 15.9 % [facility] Retic HGB Equivalent 27.9(L) 30.0 - 35.0 pg [facility] Reticulocyte Percent 1.4 0.5 - 1.8 % [facility] Blood Venous blood specimen / Unknown 11/25/2024 9:40 AM EST 11/25/2024 11:06 AM EST Lissy Gracia MD LAB BLOOD ORDERABLES Final Res ult Performing Organization Address [facility] Co de Phone Number [facility] [address] [place] [phone] * Ferritin (11/25/2024 9:40 AM EST) Ferritin 22 10 - 250 ng/mL [facility] Blood Venous blood specimen / Unknown 11/25/2024 9:40 AM EST 11/25/2024 11:06 AM EST Lissy Gracia MD LAB BLOOD ORDERABLES Final Res ult Performing Organization Address [facility] de Phone Number [facility] [address] [place] [phone] * Influenza B (ID NOW Rapid Molecular) (11/14/2024 1:52 PM EST) Only the most recent of2 resultswithin the time period is included. Pathologist [facility] Influenza B Negative Negative, Indeterminate [facility] Swab 11/14/2024 1:52 PM EST Candice Aniceto DO POINT OF CARE TEST ENTER/GOPAL T ORDERABLES Final Result Performing Organization Address [facility]/ZIP Co de Phone Number [facility] [address] [place] [phone] * Influenza A (ID NOW Rapid Molecular) (11/14/2024 1:52 PM EST) Only the most recent of2 resultswithin the time period is included. Pathologist [facility] Influenza A Negative Negative, Indeterminate [facility] Swab 11/14/2024 1:52 PM EST Candice Aniceto DO POINT OF CARE TEST ENTER/GOPAL T ORDERABLES Final Result Performing Organization Address [facility] de Phone Number [facility] [address] [place] [phone] * POCT Rapid COVID Ag (11/14/2024 1:52 PM EST) Only the most recent of2 resultswithin the time period is included. [facility] Rapid COVID Ag Negative [facility] Swab 11/14/2024 1:52 PM EST Candice Suarezestefani DO POINT OF CARE TEST ENTER/GOPAL T ORDERABLES Final Result Performing Organization Address [facility] de Phone Number [facility] [address] [place] [phone] * POCT rapid strep A manually resulted (11/14/2024 1:52 PM EST) [facility] Rapid Strep A Screen Negative Negative, None Detected [facility] Swab 11/14/2024 1:52 PM EST us Candice Suarezestefani DO POINT OF CARE TEST ENTER/GOPAL T ORDERABLES Final Result [facility] [address] [facility] [place] [address] [phone] * XR Chest 2 Views (10/30/2024 1:42 AM EST) Anatomical Region Laterality Modality Chest Radiographic Liss ging 10/30/2024 1:42 AM EST Narrative 10/30/2024 1:44 AM EST ? [facility] ?[address] ?[place] [address] ?XRay Report ? Signed ? Patient: Irene Garcia ?MR#: ?? [id number] ? : 1975 ?Acct:[id number] ? Age/Sex: 48 / F ?ADM Date: 10/30/24 ? Loc: HO.ED ? Attending Dr: ? Ordering Physician: Generic ED Physician ?? Date of Service: 10/30/24 ?? Procedure(s): XR chest 2V ?? Accession Number(s): [id number] ? cc: Generic ED Physician; [facility] ? CLINICAL HISTORY: cough, lung pain [...] DD/ 0142 ? TD/TT: 10/30/24 0142 ? Mobile Marketing Specialist: ? Procedure Note Bayron, John - 10/30/[address] [address] XRay Report Signed Patient: Irene GarciaMR#: [id number] : 1975Acct:[id number] Age/Sex: 48 / FADM Date: 10/30/24 Loc: .ED Attending Dr: Ordering Physician: Generic ED Physician Date of Service: 10/30/24 Procedure(s): XR chest 2V Accession Number(s): [id number] cc: Generic ED Physician; [facility] CLINICAL HISTORY: cough, lung pain 2 [...] OV> 10/30/24 014 DD/ 1 TD/TT: 10/30/24141 Mobile Marketing Specialist: [facility] External Provider IMG XR PROCEDURES Final Result * SARS-CoV-2 RNA, Influenza A/B, and RSV RNA, Ql NAAT (10/30/2024 1:09 AM EST) Influenza A PCR NEGATIVE Negative [facility] Influenza B PCR NEGATIVE Negative [facility] Resp Syncy Virus RNA Qual PCR NEGATIVE Negative [facility] SARS COV2 PCR NEGATIVE Negative [facility] Comment:All test results mus [...] use by authorized laboratories.Testing performed on the [employer] GeneXpert utilizingreal-time RT-PCR.All SARS CoV2 and positive influenza A/B results arereported to [facility]. 10/30/2024 1:09 AM EST 10/30/2024 1:12 AM EST us Generic External Data Provider LAB MICROBIOLOGY - GENERAL ORDERABLES Final Result [facility] [address] [place] [phone] [phone] * (ABNORMAL) CBC auto differential (10/28/2024 12:08 PM EST) White Blood Count 6.1 4.8 - 10.8 X10*3/uL [facility] Red Blood Count 4.85 4.20 - 5.50 X10*6/uL [facility] Hemoglobin 12.1 12.0 - 16.0 g/dl [facility] Hematocrit 37.4 37.0 - 47.0 % [facility] Mean Corpuscular Volume 77.1(L) 80.0 - 98.0 fL [facility] Mean Corpuscular Hemoglobin 24.9(L) 27.0 - 33.0 pg [facility] Mean Corpuscular HGB Conc 32.4 31.0 - 35.0 g/dl [facility] Red Cell Distribution Width 15.3 11.0 - 16.0 % [facility] Platelet Count 369 160 - 400 X10*3/uL [facility] Mean Platelet Volume 9.6 9.4 - 12.3 fL [facility] Neutrophils Percent Auto 56.2 45 - 73 % [facility] Imm Gran Pct Auto 0.3 0.0 - 0.4 % [facility] Lymphocytes Percent Auto 34.7 20 - 40 % [facility] Monocytes Percent Auto 7.1 2 - 11 % [facility] Eosinophils Percent Auto 1.2 0 - 4 % [facility] Basophils Percent Auto 0.5 0 - 2 % [facility] NRBC Pct Auto 0.0 0.0 - 0.2 /100WBC [facility] Neutrophils Absolute Auto 3.4 2.0 - 8.3 x10*3/uL [facility] Imm Gran Abs Auto 0.02 0.00 - 0.03 X10*3/uL [facility] Lymphocytes Absolute Auto 2.1 1.2 - 4.9 X10*3/uL [facility] Monocytes Absolute Auto 0.4 0.1 - 1.2 X10*3/uL [facility] Eosinophils Absolute Auto 0.1 0.0 - 0.4 X10*3/uL [facility] Basophils Absolute Auto 0.0 0.0 - 0.2 X10*3/uL [facility] NRBC Abs Auto 0.000 0.0 - 0.012 X10*3/uL [facility] [facility] Blood Venous blood specimen / Unknown 10/28/2024 12:08 PM EST 10/28/2024 1:08 PM EST us Lissy Gracia MD LAB BLOOD ORDERABLES Final Res ult [facility] [address] [place] [phone] * (ABNORMAL) Prothrombin Time-INR (10/28/2024 12:08 PM EST) Prothrombin Time 10.8(L) 10.9 - 12.4 SEC [facility] INTERNATIONAL NORM RATIO 0.9 0.9 - 1.1 [facility] Comment:INTERNATIONAL NORMAL IZED RATIO (INR) [...] EST 10/28/2024 1:08 PM EST us Lissy rGacia MD LAB BLOOD ORDERABLES Final Res ult Performing Organization Address [facility] Co de Phone Number [facility] [address] [place] [address] [phone] * (ABNORMAL) Hemoglobin A1c (10/22/2024 3:49 PM EST) Hemoglobin A1c 8.7(H) <6.0 % [facility] Comment:Hemoglobin A1C Refer ence Range Adults: 4.8 - 6.0 % Non diabetic: < 6.0 % Goal: < 7.0 %Additional Action Suggested: > 8.0 %Note: Hemoglobin A1c results are invalid for patients with abnormal amounts of HbF. Blood transfusions may impact the HbA1c concentration in the patient sample. Estimated Average Glucose 203 mg/dL [facility] Comment:eAG = Estimated ave rage glucose which is %A1C expressed asaverage glucose, using the formula of the R5W-ReomqjjZjvovnx Glucose study (ADAG), Diabetes Care, Vol.31,#8,May. 2007 Blood Venous blood specimen / Unknown 10/22/2024 3:49 PM EST 10/22/2024 5:46 PM EST us Lissy Gracia MD LAB BLOOD ORDERABLES Final Res ult Performing Organization Address [facility] Co de Phone Number [facility] [address] [place] [address] [phone] * BI Mammogram Screening Tomosynthesis Bilateral (01/11/2024 2:45 PM EDT) Anatomical Region Laterality Modality Breast Bilateral Mammography 01/11/2024 2:45 PM EDT Narrative 02/06/2024 6:07 AM EDT ? [facility] ? [address] ?[place] [address] ? Mammography Report ? Signed ? Patient: Ibanez Mundo,Irene ?MR#: ?? [id number] ? : 1975 ?Acct:[id number] ? Age/Sex: 48 / F ?ADM Date: 03/28/24 ? Loc: HO.MAMMO ? Attending Dr: Lissy Gracia MD ? Ordering Physician: Lissy Gracia ?Results: 1Negative ? Date of Service: 01/11/24 ?Follow Up: 1 Year From Orig ?? inal Mammogram ? Procedure(s): MM tomosynthesis screening BI ?? Accession Number(s): [id number] ? cc: Lissy Gracia ? EXAMINATION: ?? [...] 0604 ? DD/ 1445 ? TD/TT: ? Mobile Marketing Specialist: ? Procedure Note Donotuseinterpreter, Image - 02/06/2024 [facility] [address] [place], [place] [address] Mammography Report Signed Patient: Irene GarciaMR#: [id number] : 1975Acct:[id number] Age/Sex: 48 / FADM Date: 01/11/24 Loc: [facility] Attending Dr: Lissy Gracia MD Ordering Physician: Rodriguez Graciaults: 1Negative Date of Service: 01/11/24Follow Up: 1 Year From Orig inal Mammogram Procedure(s): MM tomosynthesis screening BI Accession Number(s): [id number] cc: Lissy Gracia EXAMINATION: MM SCREENING DIGITAL [...] in OV> 02/06/24 0604 DD/ 1445 TD/TT: Mobile Marketing Specialist: Lissy Gracia MD IMG BI PROCEDURES Final Result * Lipid Panel, Standard (12/25/2023 9:46 AM EDT) Triglycerides 44 <150 mg/dL [facility] Comment:Desirable Triglyceri de: less than 150 mg/dLBorderline High Triglyceride 150-199 mg/dLHigh Triglyceride: 200-499 mg/dLVery High Triglyceride: greater than or equal to 5OO mg/dL Cholesterol 145 <200 mg/dL [facility] Comment:Desirable Cholestero l: less than 200 mg/dLBorderline High Cholesterol: 200-239 mg/dLHigh Cholesterol: greater than 239 mg/dL LDL Cholesterol Calculated 64 <100 mg/dL [facility] Comment:Desirable LDL: less than 100 mg/dLNear Optimal/Above Optimal LDL: 110- 129 mg/dLBorderline High LDL: 130-159 mg/dLHigh LDL: 160-189 mg/dLVery High LDL: greater than or equal to 190 mg/dL HDL Cholesterol 73 >40 mg/dL [facility] Comment:Desirable HDL: great er than 40 mg/dL Note: This HDL assay may give artificially low results in patients with liver disease. Blood Venous blood specimen / Unknown 12/25/2023 9:46 AM EDT 12/25/2023 11:04 AM EDT us Lissy Gracia MD LAB BLOOD ORDERABLES Final Res ult [facility] [address] [place] [address] [phone] * Pap Smear (11/22/2023 1:51 PM EST) 11/22/2023 1:51 PM EST 11/24/2023 8:30 AM EST Narrative [facility] - 12/04/2023 10:46 AM EST ----- ------- Name: Irene Garcia ?Age/Sex: 47/F ? : 1975 Unit#: [id number] ?? Attend Dr: Clare Jackson CNM ?Re11/22/23 ?Status: DEP REF ? Location: HO.LNP ?Disch: ? ----- ------- SPEC : [id number] ? RECD: 11/24/23 ? STATUS: ??SOUT ? REQ NUM: [id number] ? CHENG: 11/22/23-1350 ? SUBM DR: Clare [...] Not Detected ? HPV testing performed by [facility], [place], [place]. ??See reference laboratory ?? portion of the EMR for entire report. ?Clinical Information LMP: 11/14/23 Previous PAP test: 09/12/22, HPV+ ? Material Received ?? ThinPrep-Cervical Copies To: ?? Lissy Gracia ?? [address] ?? [place] [address] ?? [phone] ?? Clare Jackson CNM ?? [address] [place] [address] Dr. Dudley Torres ?? [place] [address] ?? [phone] ----- ------- Signed (signature on file) Candelaria [place] 12/04/23 1046 ? ----- ------- ? END OF REPORT ? us Generic External Data Provider LAB CYTOLOGY ORDE RABLES Final Result Performing Organization Address [facility] de Phone Number [facility] [address] [place] [phone] * Albumin, Random Urine W/Creatinine (11/06/2023 2:33 PM EST) Creatinine, Urine 59.51 mg/dL [facility] Microalbumin Urine 14.0 mg/L [facility] Microalbum Creatinine Ratio Ur 23.5 <30 ug/mg cr [facility] Comment:Albumin/Creatinine R atio Reference Ranges: Normal: < 30 ug/mg creatinine Microalbuminuria: 30 - 300 ug/mg creatinineClinical Albuminuria: > 300 ug/mg creatinine Urine (Urine, Random) 11/06/2023 2:33 PM EST 11/06/2023 4:16 PM EST us Lissy Gracia MD LAB URINE ORDERABLES Final Res ult Performing Organization Address [facility] Co de Phone Number [facility] [address] [place] [address] [phone] * (ABNORMAL) HPV mRNA E6/E7 w/Reflex to HPV Genotypes 16, 18/45 (09/12/2022 9:53 AM EST) HPV nRNA E6/E7 Detected(A ) Not Detected [facility] Comment:Methodology: Transcr iption-Mediated AmplificationThis assay detects E6/E7 viral messenger RNA (mRNA) from 14high-risk HPV types (16,18,31,33,35,39,45,51,52,56,58,59,66,68).Cervical sources are required for HPV testing.If a vaginal source from a patient who has had atotal hysterectomy with removal of cervix wassubmitted, please contact the testing laboratoryfor alternative testing options.For additional information, please refer tohttp://education.[employer]/faq/YWF167q2(This link if provided for information/educational purposes only.)THIS TEST WAS PERFORMED AT:[facility] [place] [address],[place] [address]PHESSCASSIUS HEIN MD HPV 16 RNA NOT DETECTED NOT DETECTED [facility] HPV 18/45 RNA NOT DETECTED NOT DETECTED [facility] Comment:Methodology: Transcr iption Mediated AmplificationCervical sources are required for HPV testing.If a vaginal source from a patient who has had atotal hysterectomy with removal of cervix wassubmitted, please contact the testing laboratoryfor alternative testing options.THIS TEST WAS PERFORMED AT:[facility] [place] [address],[place] [address]CASSIUS HEIN MD 09/12/2022 9:5 3 AM EST 09/12/2022 12:00 PM EST us [facility] External Provider LAB CYT OLOGY ORDERABLES Final Result [facility] [address] [place] [address] [phone] * HEPATITIS C ANTIBODY (06/16/2020 12:35 PM EDT) HEPATITIS C ANTIBODY [facility] Comment: Antibodies to HCV not detected; does not exclude early acute HCV infection. 06/16/2020 12:3 5 PM EDT Historical Provider HISTORICAL/NON ORDERABLE LABS Final Result Performing Organization Address [facility] Phone Number [facility] [address] * HIV AB/AG (06/16/2020 12:35 PM [...] detection of this assay. ?? The [facility] Human Service Coordinator HIV Ag/Ab Combo assay result and supplemental assay results should be interpreted in conjunction with the patient's clinical presentation, history and other laboratory results. ??If the results are inconsistent with clinical evidence, additional testing is suggested to confirm the result. 06/16/2020 12:3 5 PM EDT Historical Provider HISTORICAL/NON ORDERABLE LABS Final Result Performing Organization Address [facility] Number [facility] Formerly [facility] [address] from Last 3 Months or Most Recently Relevant to Health Maintenance Insurance [facility] C3 [facility] ST[facility] ADULT Care Teams Qa Developer Relationship Specialty Start Date End Date Lissy Gracia MD [address] [place] [address] PCP - General Family Medicine 06/07/21 Reinaldo Persaud RN [address] [place] [address] Home Economist Consumer ServiceKilnman 11/05/24
--- OUTSIDE RECORDS SUMMARY | 2025-01-23 11:01 | XMS_ITS | Encounter Summary ---
Author Organization [facility] [facility] Address [address] [facility] [address] [facility] [facility] [address] [place] [address] Care Team Providers Care Stitching Machine Setter Name Role Phone Lissy Gracia MD Primary Care Provider [phone] Reinaldo Persaud RN Unavailable [phone] Reason for Visit * Reason Comments Med Refill Encounter Details Date Type Department Care Team (Late st Contact Info) Description 12/26/2022 Refill [facility] [address] [place] [address] Adriana Ramesh MD [address] [place] [address] [phone] Primary hypertension Social History Tobacco Use Types [...] Description 03/14/2025 2:15 PM EDT Office Visit [facility] [address] [place] [address] Lissy Gracia MD [address] [place] [address] documented as of this encounter Visit Diagnoses Diagnosis Primary hypertension Unspecified essential hypertension documented in this encounter Care Teams Stitching Machine Setter Relationship Specialty Start Date End Date Lissy Gracia MD [address] [place] [address] PCP - General Family Medicine 06/07/21 Reinaldo Persaud RN [address] [place] [address] Modeling Agency ManagerTrailer Driver 11/05/24 documented as of this encounter
--- OUTSIDE RECORDS SUMMARY | 2025-01-23 11:02 | XMS_ITS | Encounter Summary ---
Author Organization [employer] Address [address] [facility] [address] [facility] [address] [place] [address] Care Team Providers Care Soaking Room Operator Name Role Phone Lissy Gracia MD Primary Care Provider [phone] Reinaldo Persaud RN Unavailable [phone] Reason for Visit * Reason Onset Date Comments Med Refill 06/20/2024 Encounter Details Date Type Department Care Team ([facility] st Contact Info) Description 06/20/2024 Telephone [facility] [address] [place] [address] Lissy Gracia MD [address] [place] [address] Med Refill Social History Tobacco Use Types [...] MG/0.5ML solution pen-injector To be sent to: [facility] - [place], [place] - [address] [facility] documented in this encounter Plan of Treatment Upcoming Encounters Date Type Department Care Team (Late st Contact Info) Description 03/14/2025 2:15 PM EDT Office Visit [facility] [address] [place] [address] Lissy Gracia MD [address] [place] [address] documented as of this encounter Visit Diagnoses Not on filedocumented in this encounter Additional Health Concerns Assessment Noted Time PHQ-9 Depression Total Score: 0 02/05/20 24 1:47 PM EDT documented as of this encounter Care Teams Soaking Room Operator Relationship Specialty Start Date End Date Lissy Gracia MD [address] [place] [address] PCP - General Family Medicine 06/07/21 Reinaldo Persaud RN [address] [place] [address] Resource ConservationistTelephone Advice Nurse 11/05/24 documented as of this encounter
--- OUTSIDE RECORDS SUMMARY | 2025-01-23 11:02 | XMS_ITS | Encounter Summary ---
Author Organization [employer] Address [address] [facility] [address] [place] [address] Care Team Providers Care Cyber Security Consultant Name Role Phone Lissy Gracia MD Primary Care Provider [phone] Reinaldo Persaud RN Unavailable [phone] Encounter Details Date Type Department Care Team ([facility] st Contact Info) Description 01/19/2024 Telephone [facility] [address] [place], [place] [phone] Lissy Gracia MD [address] [place] [address] Social History Tobacco Use Types Packs/Day Years [...] Description 03/14/2025 2:15 PM EDT Office Visit [facility] [address] [place] [address] Lissy Gracia MD [address] [place] [address] documented as of this encounter Visit Diagnoses Not on filedocumented in this encounter Additional Health Concerns Assessment Noted Time PHQ-9 Depression Total Score: 0 06/09/20 3:37 PM EDT documented as of this encounter Care Teams Cyber Security Consultant Relationship Specialty Start Date End Date Lissy Gracia MD [address] [place] [address] PCP - General Family Medicine 06/07/21 Reinaldo Persaud RN [address] [place] [address] Balancing Machine OperatorConsultant Electronics 11/05/24 documented as of this encounter
--- OUTSIDE RECORDS SUMMARY | 2025-01-23 11:02 | XMS_ITS | Encounter Summary ---
Author Organization [employer] Address [address] [facility] [address] [place] [address] Care Team Providers Care Coal Hiker Name Role Phone Lissy Gracia MD Primary Care Provider [phone] Reinaldo Persaud RN Unavailable Reason for Visit * Reason Comments Med Refill Encounter Details Date Type Department Care Team ([facility] st Contact Info) Description 12/20/2023 Refill [facility] [address] [place], [place] [phone] Lissy Gracia MD [address] [place], [place] [phone] Chronic bilateral low back pain, unspecified whether [...] EDT Office Visit [facility] [address] [place] [address] Lissy Gracia MD [address] [place] [address] documented as of this encounter Visit Diagnoses Diagnosis Chronic bilateral low back pain, unspecified whether sciatica present documented in this encounter Additional Health Concerns Assessment Noted Time PHQ-9 Depression Total Score: 0 06/09/20 23 3:37 PM EDT documented as of this encounter Care Teams Coal Hiker Relationship Specialty Start Date End Date Lissy Gracia MD [address] [place] [address] PCP - General Family Medicine 06/07/21 Reinaldo Persaud RN [address] [place] [address] Transportation MechanicAlining Inspector 11/05/24 documented as of this encounter
--- OUTSIDE RECORDS SUMMARY | 2025-01-23 11:02 | XMS_ITS | Encounter Summary ---
Author Organization [employer] Address [address] 7[address] [place] [address] Care Team Providers Care Business Data Analyst Name Role Phone Lissy Gracia MD Primary Care Provider [phone] Reinaldo Persaud RN Unavailable [phone] Reason for Visit * Reason Onset Date Comments Care Management 01/21/2025 C3CM- f/u call Encounter Details Date Type Department Care Team ([facility] st Contact Info) Description 01/21/2025 Telephone [facility] [address] [place] [address] Lissy Gracia MD [address] [place] [address] Care Management (C3CM- f/u call) Social History [...] She states she was seen at in [facility] on Monday. Per patient, was prescribed [...] scheduled on 01/15. She agrees to contact [facility] to reschedule the visit. CM reminded patient that she is scheduled to see SWEATBAND DRUMMER on 01/23. Advised PT1 cannot be set for the visit as there is not enough notice to submit the request. She verbalizes understanding and states she will take public transportation to the visit. She also states that [facility] provides a shuttle which she may consider [...] provided on [facility] Ur[facility] located in [facility]. Patient provided with after-hours line for [facility], , which offer night time triage service and option to transfer to instrumentation instructor provider if needed. Patient verbalizes understanding, and able to r epeat back to field underwriter. A follow up call will be placed within 10 days, patient agrees with plan. documented in this encounter Plan of Treatment Upcoming Encounters Date Type Department Care Team (Late st Contact Info) Description 03/14/2025 2:15 PM EDT Office Visit [facility] [address] [place] [address] Lissy Gracia MD [address] [place] [address] documented as of this encounter Visit Diagnoses Not on filedocumented in this encounter Additional Health Concerns Assessment Noted Time PHQ-9 Depression Total Score: 0 02/05/20 24 1:47 PM EDT documented as of this encounter Care Teams Business Data Analyst Relationship Specialty Start Date End Date Lissy Gracia MD [address] [place] [address] PCP - General Family Medicine 06/07/21 Reinaldo Persaud RN [address] [place] [address] [place] [address] Clipper MachineRug Setter Velvet 11/05/24 documented as of this encounter
--- OUTSIDE RECORDS SUMMARY | 2025-01-23 11:02 | XMS_ITS | Encounter Summary ---
Author Organization [employer] [facility] Address [address] [facility] [address]t [place] [address] Care Team Providers Care Color Maker Dyer Name Role Phone Lissy Gracia MD Primary Care Provider [phone] Reinaldo Persaud RN Unavailable [phone] Reason for Visit * Reason Comments Care Coordination C3 [facility] Ammy bruce telephone call outreach Encounter Details Date Type Department Care Team (Latest Contact Info) Description 01/21/2025 Patient Outreach [facility] [address] [place] [address] Lissy Gracia MD [address] [place] [address] Care Coordination ([facility] telephone call outreach) Social History [...] outbound call to patient introducing herself from [facility] CM Department, in regard to remind [...] Description 03/14/2025 2:15 PM EDT Office Visit [facility] [address] [place] [address] Lissy Gracia MD [address] [place] [address] documented as of this encounter Visit Diagnoses Not on filedocumented in this encounter Additional Health Concerns Assessment Noted Time PHQ-9 Depression Total Score: 0 02/05/20 24 1:47 PM EDT documented as of this encounter Care Teams Color Maker Dyer Relationship Specialty Start Date End Date Lissy Gracia MD [address] [facility] [place] [address] PCP - General Family Medicine 06/07/21 Reinaldo Persaud, LILIANE [address] [place] [address] Tube TellerSanitation Superintendent 11/05/24 documented as of this encounter
--- OUTSIDE RECORDS SUMMARY | 2025-01-23 11:02 | XMS_ITS | Encounter Summary ---
Author Organization [employer] Address [address] [facility] [facility] [address] [place] [address] Care Team Providers Care Miller Head Wet Process Name Role Phone Lissy Gracia MD Primary Care Provider [phone] Reinaldo Persaud RN Unavailable [phone] Reason for Visit * Reason Onset Date Comments Appointment Request 10/17/2023 Encounter Details Date Type Department Care Team ([facility] st Contact Info) Description 10/17/2023 Telephone [facility] [address] [place] [address] Lissy Gracia MD [address] [place], [place] [phone] Appointment Request Social History Tobacco Use Types [...] follow up . Please contact pt @ [phone] Albanian Speaker documented in this encounter Plan of Treatment Upcoming Encounters Date Type Department Care Team (Late st Contact Info) Description 03/14/2025 2:15 PM EDT Office Visit [facility] [address] [place] [address] Lissy Gracia MD [address] [place] [address] documented as of this encounter Visit Diagnoses Not on filedocumented in this encounter Additional Health Concerns Assessment Noted Time PHQ-9 Depression Total Score: 0 06/09/20 23 3:37 PM EDT documented as of this encounter Care Teams Miller Head Wet Process Relationship Specialty Start Date End Date Lissy Gracia MD [address] [place] [address] PCP - General Family Medicine 06/07/21 Reinaldo Persaud RN [address] [place] [address] Employment Law SpecialistStaffing Clerk 11/05/24 documented as of this encounter
--- OUTSIDE RECORDS SUMMARY | 2025-01-23 11:02 | XMS_ITS | Clinical Summary ---
Author Organization [facility] Address [address] [place] [address] Care Team Providers Care Home Security Professional Name Role Phone Unavailable Primary Care Provider [...] age to complete this topic Insurance Medicaid [place] Medicaid [place]
--- OUTSIDE RECORDS SUMMARY | 2025-01-23 11:02 | XMS_ITS | Clinical Summary ---
Author Organization [facility] ity Address [address] [place] [address] Care Team Providers Care Tying Machine Operator Name Role Phone Unavailable Primary Care [...]
--- OUTSIDE RECORDS SUMMARY | 2025-01-23 11:02 | XMS_ITS | Encounter Summary ---
Author Organization [employer] Address [address] [facility] [address] [place] [address] Care Team Providers Care Air Hammer Operator Name Role Phone Lissy Gracia MD Primary Care Provider [phone] Reinaldo Persaud RN Unavailable [phone] Reason for Visit * Reason Onset Date Comments Monday Chronic [facility] 01/22/2025 Encounter Details Date Type Department Care Team ([facility] st Contact Info) Description 01/22/2025 Telephone [facility] [address] [place] [address] Lissy Gracia MD [address] [place] [address] Monday Chronic Pain Group Social History Tobacco [...] Description 03/14/2025 2:15 PM EDT Office Visit [facility] [address] [place] [address] Lissy Gracia MD [address] [place] [address] documented as of this encounter Visit Diagnoses Not on filedocumented in this encounter Additional Health Concerns Assessment Noted Time PHQ-9 Depression Total Score: 0 02/05/20 24 1:47 PM EDT documented as of this encounter Care Teams Air Hammer Operator Relationship Specialty Start Date End Date Lissy Gracia MD [address] [place] [address] PCP - General Family Medicine 06/07/21 Reinaldo Persaud, LILIANE [address] [place] [address] Maintenance Mechanic MillwrightEquipment Detailer 11/05/24 documented as of this encounter
--- OUTSIDE RECORDS SUMMARY | 2025-01-23 11:02 | XMS_ITS | Encounter Summary ---
Author Organization [employer] [facility] Address [address] 7[address] [place] [address] Care Team Providers Care Certified Coder Name Role Phone Lissy Gracia MD Primary Care Provider [phone] Reinaldo Persaud RN Unavailable Reason for Visit * Reason Comments Care Coordination [facility] Ammy bruce telephone call outreach Encounter Details Date Type Department Care Team (Latest Contact Info) Description 01/20/2025 Patient Outreach [facility] MED[facility]INE [address] [place] [address] Lissy Gracia MD [address] [place] [address] Care Coordination ([facility] Ziegler telephone call outreach) Social History Tobacco [...] outbound call to patient introducing herself from [facility] CM Department, in regard to remind [...] Visit [facility] MED[facility] [address] [place] [address] Lissy Gracia MD [address] [place] [address] documented as of this encounter Visit Diagnoses Not on filedocumented in this encounter Additional Health Concerns Assessment Noted Time PHQ-9 Depression Total Score: 0 02/05/20 24 1:47 PM EDT documented as of this encounter Care Teams Certified Coder Relationship Specialty Start Date End Date Lissy Gracia MD [address] [place] [address] PCP - General Family Medicine 06/07/21 Reinaldo Persaud, LILIANE [address] [place] [address] Foreign ClerkTeacher Advisor 11/05/24 documented as of this encounter
--- OUTSIDE RECORDS SUMMARY | 2025-01-23 11:02 | XMS_ITS | Encounter Summary ---
Author Organization [facility] [facility] Address [address] 7t [place] [address] Care Team Providers Care Guide Travel Name Role Phone Lissy Gracia MD Primary Care Provider [phone] Reinaldo Persaud RN Unavailable [phone] Reason for Visit * Reason Comments Care Coordination [facility] Ammy bruce telephone call outreach Encounter Details Date Type Department Care Team (Latest Contact Info) Description 01/22/2025 Patient Outreach [facility] MEDICINE [address] [place] [address] Lissy Gracia MD [address] [place] [address] Care Coordination ([facility] [...] outbound call to patient introducing herself from [facility] CM Department, in regard to remind [...] Description 03/14/2025 2:15 PM EDT Office Visit [facility] MEDICINE [address] [place] [address] Lissy Gracia MD [address] [place] [address] documented as of this encounter Visit Diagnoses Not on filedocumented in this encounter Additional Health Concerns Assessment Noted Time PHQ-9 Depression Total Score: 0 02/05/20 24 1:47 PM EDT documented as of this encounter Care Teams Guide Travel Relationship Specialty Start Date End Date Lissy Gracia MD [address] [place] [address] PCP - General Family Medicine 06/07/21 Reinaldo Persaud, LILIANE [address] [place] [address] Physician ScribeCare Transition Coordinator 11/05/24 documented as of this encounter
--- OUTSIDE RECORDS SUMMARY | 2025-01-23 11:02 | XMS_ITS | Encounter Summary ---
Author Organization [employer] Address [address] 7t [place] [address] Care Team Providers Care Assistant Professor Nurse Education Name Role Phone Lissy Gracia MD Primary Care Provider [phone] Reinaldo Persaud RN Unavailable [phone] Reason for Visit * Reason Comments Med Refill Encounter Details Date Type Department Care Team ([facility] st Contact Info) Description 08/19/2024 Refill [facility] MEDICINE [address] [place] [address] Adriana Ramesh MD [address] [place] [address] Type 2 diabetes mellitus with hyperglycemia, without long-term current use of insulin ([facility]) Social History Tobacco Use Types [...] Description 03/14/2025 2:15 PM EDT Office Visit [facility] MEDICINE [address] [place] [address] Lissy Gracia MD [address] [place] [address] documented as of this encounter Visit Diagnoses Diagnosis Type 2 diabetes mellitus with hyperglycemia, without long-term current use of insulin ([facility]) documented in this encounter Additional Health Concerns Assessment Noted Time PHQ-9 Depression Total Score: 0 02/05/20 24 1:47 PM EDT documented as of this encounter Care Teams Assistant Professor Nurse Education Relationship Specialty Start Date End Date Lissy Gracia MD [address] [place] [address] PCP - General Family Medicine 06/07/21 Reinaldo Persaud RN [address] [place] [address] Temp RecruiterSpeech Correction Consultant 11/05/24 documented as of this encounter
--- OUTSIDE RECORDS SUMMARY | 2025-01-23 11:02 | XMS_ITS | Encounter Summary ---
Author Organization [employer] Address [address] 7t [place] [address] Care Team Providers Care Rehab/Pre Vocational Counselor Name Role Phone Lissy Gracia MD Primary Care Provider Reinaldo Persaud RN Unavailable [phone] Reason for Visit * Reason Comments Dental Exam Encounter Details Date Type Department Care Team (Late st Contact Info) Description 08/19/2024 1:30 PM EST Office Visit [facility] [address] [place] [address] Romina Frank DDS [address] [place] [address] Encounter for dental examination (Primary Dx); Dental [...] 1337 (Time out for dental exam) Location: [facility] Tooth: Maxilla and Mandible Procedure: Exam and X-rays Verified the above with patient, visitor services information assistant, and provider. Confirmed via patient's chart, intraorally and by radiographs. Group Exercise Class Instructor: not applicable Chief Complaint Patient presents with Dental Exam Medical Hx: Vitals: There were no vitals taken for this visit. 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 ([facility]) 06/09/2023 Gastroesophageal reflux disease 06/17/2022 Hyperlipidemia 02/15/2013 Hypertensive disorder 12/02/2020 Iron deficiency 02/15/2013 Recurrent depression ([facility]) 08/10/2012 Type 2 diabetes mellitus ([facility]) 08/21/2015 Medications: Outpatient Encounter Medications as of [...] MORNING Spacer/Aero-Holding Chambers (Pro Comfort Spacer Adult[place] [facility] [place] use with inhaler. 1 each 0 tiZANidine (Zanaflex) 2 MG tablet Take 1 tablet (2 mg) by mouth if needed at bedtime for muscle spasms for up to 10 days. 10 tablet 0 TRUEplus Lancets [facility] TEST BLOOD SUGAR 3 TIMES A [...] Cancer Risk: Low Risk Oral Hygiene Instructions: [place] two times daily, modified briceno technique, Floss daily, Electric toothbrush, [place] Tongue, Chlorhexidine Caries Risk Assessment: Low- no risk factor Assessment/Plan PAD and perio eval Patient tolerated procedure well, all questions answered and expressed understanding. Dismissed in good condition. NV: PAD and perio eval Sleeve Turner: Candice Savage Dentist: Romina Frank DDS documented in this encounter Plan of Treatment Upcoming Encounters Date Type Department Care Team (Late st Contact Info) Description 03/14/2025 2:15 PM EDT Office Visit [facility] MEDICINE [address] [place] [address] Lissy Gracia MD [address] [place] [address] documented as of this encounter Procedures Procedure [...] documented as of this encounter Care Teams Rehab/Pre Vocational Counselor Relationship Specialty Start Date End Date Lissy Gracia MD [address] [place] [address] PCP - General Family Medicine 06/07/21 Reinaldo Persaud RN [address] [place] [address] Land Acquisition AnalystEgg Factory Worker 11/05/24 documented as of this encounter
--- OUTSIDE RECORDS SUMMARY | 2025-01-23 11:02 | XMS_ITS | Encounter Summary ---
Author Organization [employer] Address [address] 7[address] [place] [address] Care Team Providers Care Surgical Corsetier Name Role Phone Lissy Gracia MD Primary Care Provider [phone] Reinaldo Persaud RN Unavailable [phone] Reason for Visit * Reason Comments Med Refill Encounter Details Date Type Department Care Team ([facility] st Contact Info) Description 11/21/[address] [facility] [address] [place] [address] Candice Moreland DO [address] [place] [address] Social History Tobacco Use Types Packs/Day Years [...] 2:15 PM EDT Office Visit [facility] MED[facility] [address] [place] [address] Lissy Gracia MD [address] [place] [address] documented as of this encounter Visit Diagnoses Not on filedocumented in this encounter Additional Health Concerns Assessment Noted Time PHQ-9 Depression Total Score: 0 02/05/20 24 1:47 PM EDT documented as of this encounter Care Teams Surgical Corsetier Relationship Specialty Start Date End Date Lissy Gracia MD [address] [place] [address] PCP - General Family Medicine 06/07/21 Reinaldo Persaud RN [address] [place] [address] Pet House SitterProperty Assessment Monitor 11/05/24 documented as of this encounter
--- OUTSIDE RECORDS SUMMARY | 2025-01-23 11:02 | XMS_ITS | Encounter Summary ---
Author Organization [employer] Address [address] 7t [place] [address] Care Team Providers Care Intelligence Intern Name Role Phone Lissy Gracia MD Primary Care Provider [phone] Reinaldo Persaud RN Unavailable [phone] Reason for Referral * Consultation (STAT) - Closed Specialty Diagnoses / Procedures Referred By Contac t Referred To Contact Pulmonary Disease Diagnoses Mild persistent asthma without complication Lissy Gracia MD [address] [place] [address] Phone: tel: fax: [facility] Pulmonary [address] 1st Floor [place], [place] Phone: tel: fax: Referral ID Status Reason Start Date Expiration Date V isits Requested Visits Authorized [id number] Closed Specialty Services Required 09/02/2024 09/02/2025 6 6 Encounter Details Date Type Department Care Team (Late st Contact Info) Description 09/02/2024 Orders Only [facility] MEDICINE [address] [place] [address] Lissy Gracia MD [address] [place] [address] [phone] Mild persistent asthma without complication (Primary Dx) [...] Description 03/14/2025 2:15 PM EDT Office Visit [facility] [address] [place], [place] [phone] Lissy Gracia MD [address] [place] [address] Scheduled Referrals Name Type Priority Associated Diagnoses [...] documented as of this encounter Care Teams Intelligence Intern Relationship Specialty Start Date End Date Lissy Gracia MD [address] [place] [address] PCP - General Family Medicine 06/07/21 Reinaldo Persaud, LILIANE [address] [place] [address] Hot Metal Mixer Operator HelperStructural Engineering Technician 11/05/24 documented as of this encounter
--- OUTSIDE RECORDS SUMMARY | 2025-01-23 11:02 | XMS_ITS | Encounter Summary ---
Author Organization [employer] [facility] Address [address] 7t [place] [address] Care Team Providers Care Polygraph Operator Name Role Phone Lissy Gracia MD Primary Care Provider [phone] Reinaldo Persaud RN Unavailable [phone] Encounter Details Date Type Department Care Team (Latest Contact Info) Description 04/10/2019 Abstract [facility] CONVERSIONS Dental, Provider, DDS Social [...] Description 03/14/2025 2:15 PM EDT Office Visit [facility] MEDICINE [address] [place] [address] Lissy Gracia MD [address] [place] [address] documented as of this encounter Visit Diagnoses Not on filedocumented in this encounter Care Teams Polygraph Operator Relationship Specialty Start Date End Date Lissy Gracia MD [address] [place] [address] PCP - General Family Medicine 06/07/21 Reinaldo Persaud, LILIANE [address] [place] [phone] [place] Division DirectorJoint Creaser 11/05/24 documented as of this encounter
[2025-01-28 14:18] LABS: HPV Genotype 16 Negative (Negative); HPV Genotype 18 Negative (Negative); HPV High Risk Negative (Negative)
== END 2025-01-23 08:12 | disposition home or self-care (01) ==
LOC: HO.LNP 08:11
PROVIDERS: PCP General Practice; Visit Provider Obstetrics & Gynecology
DX: Z01.419 Encounter for gynecological examination (general) (routine) without abnormal findings (principal)
CPT/HCPCS: 87626; 88175; 99396; 99459

== ENCOUNTER 2025-01-23 08:11 | Outpatient (AMB) | payer MEDICAID, SELFPAY ==
--- OUTSIDE RECORDS SUMMARY | 2025-01-23 08:15 | XMS_ITS | Encounter Summary ---
Author Organization [facility] Address [address] [place] [address] Care Team Providers Care Car Starter Name Role Phone Lissy Gracia MD Primary Care Provider [phone] Reinaldo Persaud RN Unavailable [phone] Reason for Visit * Reason Onset Date Comments Nurse Triage 05/22/2023 Encounter Details Date Type Department Care Team ([facility] st Contact Info) Description 05/22/2023 Telephone [facility] MED[facility]INE [address] [place] [address] Lissy Gracia MD [address] [place], [place] [phone] Nurse Triage Social History Tobacco Use Types [...] to report body pain . Patient speaks Kazakh. Advised triage nurse will call patient back. documented in this encounter Plan of Treatment Upcoming Encounters Date Type Department Care Team (Late st Contact Info) Description 03/14/2025 2:15 PM EDT Office Visit [facility] [address] [place] [address] Lissy Gracia MD [address] [place] [address] documented as of this encounter Visit Diagnoses Not on filedocumented in this encounter Care Teams Car Starter Relationship Specialty Start Date End Date Lissy Gracia MD [address] [place] [address] PCP - General Family Medicine 06/07/21 Reinaldo Persaud RN [address] [place] [address] Linux ProgrammerProfessor Of Languages 11/05/24 documented as of this encounter
--- OUTSIDE RECORDS SUMMARY | 2025-01-23 08:15 | XMS_ITS | Encounter Summary ---
Author Organization [employer] Address [address] [place] [address] 7t [place] [address] Care Team Providers Care Battery Container Finishing Hand Name Role Phone Lissy Gracia MD Primary Care Provider [phone] Reinaldo Persaud RN Unavailable [phone] Reason for Visit * Reason Comments Med Refill Encounter Details Date Type Department Care Team (Late st Contact Info) Description 06/13/2023 Refill [facility] [address] [place] [address] [phone] Chari Murray FNP [address] [place] [address] Dept [place] [address] Mild persistent asthma without complication Social History [...] Description 03/14/2025 2:15 PM EDT Office Visit [facility] [address] [place], [place] [phone] Lissy Gracia MD [address] [place] [address] documented as of this encounter Visit Diagnoses Diagnosis Mild persistent asthma without complication documented in this encounter Additional Health Concerns Assessment Noted Time PHQ-9 Depression Total Score: 0 06/09/20 23 3:37 PM EDT documented as of this encounter Care Teams Battery Container Finishing Hand Relationship Specialty Start Date End Date Lissy Gracia MD [address] [place] [address] PCP - General Family Medicine 06/07/21 Reinaldo Persaud RN [address] [place] [address] Dental Services DirectorPrinting Table Worker 11/05/24 documented as of this encounter
--- OUTSIDE RECORDS SUMMARY | 2025-01-23 08:15 | XMS_ITS | Encounter Summary ---
Author Organization [facility] Address [address] [place] [address] Care Team Providers Care Sulfide Head Operator Name Role Phone Lissy Gracia MD Primary Care Provider [phone] Reinaldo Persaud RN Unavailable [phone] Reason for Visit * Reason Comments Med Refill Encounter Details Date Type Department Care Team (Late st Contact Info) Description 05/12/[address] [facility] MEDICINE [address] [place] [address] [phone] Lissy Gracia MD [address] [place] [address] [phone] Social History Tobacco Use Types Packs/Day Years [...] Description 03/14/2025 2:15 PM EDT Office Visit [facility] MEDICINE [address] [place] [address] [phone] Lissy Gracia MD [address] [place] [address] [phone] documented as of this encounter Visit Diagnoses Not on filedocumented in this encounter Care Teams Sulfide Head Operator Relationship Specialty Start Date End Date Lissy Gracia MD [address] [place] [address] PCP - General Family Medicine 06/07/21 Reinaldo Persaud RN [address] [place] [address] Carbon Blocks Press OperatorMedication Reconciliation Technician 11/05/24 documented as of this encounter
--- OUTSIDE RECORDS SUMMARY | 2025-01-23 08:16 | XMS_ITS | Encounter Summary ---
Author Organization [facility] Address [address] 7[address] [place] [address] Care Team Providers Care Tight Barrel Inspector Name Role Phone Lissy Gracia MD Primary Care Provider [phone] Reinaldo Persaud RN Unavailable [phone] Encounter Details Date Type Department Care Team (Latest Contact Info) Description 04/10/2019 Abstract [facility] CONVERSIONS Dental, Provider, DDS Social History [...] Description 03/14/2025 2:15 PM EDT Office Visit [facility] MEDICINE [address] [place] [address] Lissy Gracia MD [address] [place] [address] documented as of this encounter Visit Diagnoses Not on filedocumented in this encounter Care Teams Tight Barrel Inspector Relationship Specialty Start Date End Date Lissy Gracia MD [address] [place] [address] PCP - General Family Medicine 06/07/21 Reinaldo Persaud, LILIANE [address] [place] [address] Processing AssistantCementer Helper 11/05/24 documented as of this encounter
--- OUTSIDE RECORDS SUMMARY | 2025-01-23 08:16 | XMS_ITS | Encounter Summary ---
Author Organization [facility] Address [address]t [place] [address] Care Team Providers Care Build And Release Manager Name Role Phone Lissy Gracia MD Primary Care Provider [phone] Reinaldo Persaud RN Unavailable [phone] Reason for Visit * Reason Comments Med Refill Encounter Details Date Type Department Care Team (Late st Contact Info) Description 12/25/2022 Refill [facility] MEDICINE [address] [place] [phone] Adriana Ramesh MD [address] [place] [address] [phone] Social History Tobacco Use Types Packs/Day Years [...] Description 03/14/2025 2:15 PM EDT Office Visit [facility] MED[facility]INE [address] [place] [phone] Lissy Gracia MD [address] [place] [address] documented as of this encounter Visit Diagnoses Not on filedocumented in this encounter Care Teams Build And Release Manager Relationship Specialty Start Date End Date Lissy Gracia MD [address] [place] [address] PCP - General Family Medicine 06/07/21 Reinaldo Persaud RN [address] [place] [address] Business Management AnalystTire Bladder Maker 11/05/24 documented as of this encounter
--- OUTSIDE RECORDS SUMMARY | 2025-01-23 08:16 | XMS_ITS | Encounter Summary ---
Author Organization [employer] Address [address] 7t [place] [address] Care Team Providers Care Book Critic Name Role Phone Lissy Gracia MD Primary Care Provider [phone] Reinaldo Persaud RN Unavailable [phone] Encounter Details Date Type Department Care Team ([facility] st Contact Info) Description 01/19/2024 Telephone [facility] MEDICINE [address] [place], [place] [phone] Lissy Gracia MD [address] [place] [address] Social History Tobacco Use Types Packs/Day Years [...] Description 03/14/2025 2:15 PM EDT Office Visit [facility] MEDICINE [address] [place] [phone] Lissy Gracia MD [address] [place] [address] documented as of this encounter Visit Diagnoses Not on filedocumented in this encounter Additional Health Concerns Assessment Noted Time PHQ-9 Depression Total Score: 0 06/09/20 3:37 PM EDT documented as of this encounter Care Teams Book Critic Relationship Specialty Start Date End Date Lissy Gracia MD [address] [place] [place] [address] PCP - General Family Medicine 06/07/21 Reinaldo Persaud RN [address] [place] [address] Supervisor Aircraft MaintenanceHumanities Instructor 11/05/24 documented as of this encounter
--- OUTSIDE RECORDS SUMMARY | 2025-01-23 08:16 | XMS_ITS | Clinical Summary ---
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 022 Active famotidine (Pepcid) 40 MG tablet Take 40 mg by mouth at bedtime. 022 Active Blood Glucose Monitoring Suppl ([employer]Style Lite) w/Device kitIndications:Ty pe 2 diabetes mellitus with hyperglycemia, without long-term current use of insulin ([facility]) 1 kit 2 times daily. To monitor [...] without long-term current use of insulin ([facility]) 1 each by Other route 2 times [...] for 10 days. To ears 30 g 2024 Active lidocaine (Lidoderm) 5 % patchIndications: Cervical [...] without long-term current use of insulin ([facility]) Inject 0.5 mL (1.5 mg) as directed 1 (one) time per week. 2 mL 11 024 2024 Discontinued(D ose adjustment) magnesium oxide [...] be having hypoglycemic episodes, including shaking in [place] where she hit her head Assessment & [...] 300mg daily Maintenance: Eye Exam: [facility] at [facility] 04/2022, next 04/2024 Diabetic foot [...] 300mg daily Maintenance: Eye Exam: [facility] at [facility] 04/2022, next 04/2024 Diabetic foot [...] for f/u Maintenance: Eye Exam: [facility] at [facility] 04/2022 Diabetic foot exam: 06/2022, [...] for f/u Maintenance: Eye Exam: [facility] at [facility] 04/2022 Diabetic foot exam: 06/2022, [...] for f/u Maintenance: Eye Exam: [facility] at [facility] 04/2022 Diabetic foot exam: 06/2022, [...] for f/u Maintenance: Eye Exam: [facility] at [facility] 04/2022 Diabetic foot exam: 06/2022, [...] for f/u Maintenance: Eye Exam: [facility] at [facility] 04/2022 Diabetic foot exam: 06/2022, [...] precautions discussed Annual physical exam 02/05/2024 025 COVID-19 virus infection 06/15/2023 Assessment & [...] Encounters Date Type Department Care Team Description 01/22/2025 Telephone [facility] MEDICINE [address] [place] [address] Lissy Gracia MD [facility] 01/22/2025 Patient Outreach [address] [address] Lissy Gracia MD Care Coordination (C3 CM-[facility] telephone call outreach) 01/21/[address] [address] Lissy Gracia MD Care Management (C3CM- f/u call) 01/21/2025 Patient Outreach [address] [address] Lissy Gracia MD Care Coordination (C3 CM-[facility] telephone call outreach) 01/20/2025 Patient Outreach [address] [address] Lissy Gracia MD Care Coordination (C3 CM-[facility] telephone call outreach) 01/14/2025 1:15 PM EDT Office Visit [address] [address] Lissy Gracia MD Chronic migraine without aura without status migrainosus, not intractable (Primary Dx); Acute eczematoid otitis externa of both ears; Fibromyalgia 01/14/2025 Patient Outreach [address] [address] Lissy Gracia MD Care Coordination (C3 CM-[facility] telephone call outreach /) 01/14/2025 Travel 01/09/2025 10:30 AM EDT Office Visit [address] [address] Irene Singletary MD Chronic migraine without aura without status migrainosus, not intractable (Primary Dx); Anxiety 01/09/2025 Travel 01/08/[address] [address] Lissy Gracia MD Care Management (C3CM- f/u call) 01/07/2025 1:15 PM EDT Office Visit [address] [address] Lissy Gracia MD Fibromyalgia (Primary Dx); Type 2 diabetes mellitus with hyperglycemia, without long-term current use of insulin ([facility]) 01/07/2025 Travel 01/06/2025 9:15 AM EDT Office Visit [address] [place] [address] Irene Singletary MD Chronic migraine without aura without status migrainosus, not intractable (Primary Dx); Anxiety 01/06/2025 Patient Outreach [address] [address] Lissy Gracia MD Care Coordination (C3 CM-[facility] [employer] telephone call outreach) 01/06/2025 Patient Outreach [address] [address] Lissy Gracia MD Care Coordination (C3 CM-[facility] [employer] telephone call outreach) 01/06/2025 Travel 01/02/2025 Patient Outreach [address] [address] Lissy Gracia MD Care Coordination (C3 CM-[facility] [employer] telephone call outreach) 01/01/[address] [address] Lissy Gracia MD [facility] 12/31/2024 1:15 PM EDT Office Visit [address] [address] Lissy Gracia MD Fibromyalgia (Primary Dx); Chronic migraine without aura without status migrainosus, not intractable 12/31/2024 Travel 12/30/2024 11:00 AM EDT Office Visit [address] [address] Lissy Gracia MD Fibromyalgia (Primary Dx); Dietary counseling; Exercise counseling; Overweight; Daytime somnolence 12/30/2024 9:45 AM EDT Office Visit [address] [address] Irene Singletary MD Chronic migraine without aura without status migrainosus, not intractable (Primary Dx); Anxiety 12/30/2024 Telephone [facility] [place] [address] Lissy Gracia MD Prior Authorization ( ANJALI Request: Fredrick) 12/30/2024 Travel 12/27/2024 Telephone [facility] [place] [address] Lissy Gracia MD Schedule pain groupm(MONDAYS) 12/27/2024 Population Health Risk Score [facility] (C3) Department [address] [place] [phone] Provider, Population Health Generic 12/26/2024 Refill [facility] [place] [address] Lissy Gracia MD Cervical radiculopathy 12/24/2024 Telephone [facility] [place] [address] Lissy Gracia MD Care Management ([facility]- f/u call lv) 12/23/2024 9:00 AM EDT Office Visit [facility] [place] [address] Irene Singletary MD Chronic migraine without aura without status migrainosus, not intractable (Primary Dx); Anxiety 12/23/2024 Travel 12/20/2024 Patient Outreach [facility] [place] [address] Lissy Gracia MD Care Coordination ([address] [facility]y [facility] telephone call outreach) 12/20/2024 Refill [facility] [place] [address] Lissy Gracia MD Cervical radiculopathy 12/19/2024 10:15 AM EST Office Visit [facility] [place] [address] Irene Singletary MD Chronic migraine without aura without status migrainosus, not intractable (Primary Dx); Anxiety 12/19/2024 Travel 12/17/2024 1:15 PM EST Office Visit [facility] [place] [address] Lissy Gracia MD Fibromyalgia (Primary Dx) 12/17/2024 Travel 12/16/2024 Telephone [facility] [address] [place] [address] Lissy Gracia MD No Show 12/16/2024 Patient Outreach [address] [address] Lissy Gracia MD Care Coordination ([facility] telephone call outreach) 12/12/2024 Patient Outreach [address] [address] Lissy Gracia MD Care Coordination (C3 CM[facility] telephone call outreach) 12/12/[address] [address] Lissy Gracia MD Care Management (C3CM- f/u call) 12/10/2024 1:15 PM EST Office Visit [address] [address] Lissy Gracia MD Fibromyalgia (Primary Dx); Chronic migraine without aura without status migrainosus, not intractable 12/10/2024 Travel 12/10/2024 Patient Outreach [address] [address] Lissy Gracia MD Care Coordination ([facility]3 CM[facility] [employer] telephone call outreach) 12/09/[address] [address] Lissy Gracia MD Allergic rhinitis, unspecified seasonality, unspecified trigger 12/06/2024 Patient Outreach [address] [address] Lissy Gracia MD Care Coordination (C3 CM[facility] telephone call outreach) 12/05/2024 9:30 AM EST Office Visit [address] [address] Irene Singletary MD Chronic migraine without aura without status migrainosus, not intractable (Primary Dx); Anxiety 12/05/2024 Outside Procedure [facility] OPTOMETRY [address] [place] [phone] Betty Olivares, OD Presbyopia (Primary Dx) 12/05/2024 Refill [facility] [address] [place] [address] Roscoe Alfaro MD 12/05/2024 Travel 12/04/2024 9:15 AM EST Office Visit [facility] OPTOM[facility] [address] [place] [address] Betty Olivares, OD Hyperopia of both eyes (Primary Dx) 12/04/2024 Patient Outreach [address] [address] Lissy Gracia MD Care Coordination (C3 -[facility] telephone call outreach) 12/04/2024 Patient Outreach [address] [address] Lissy Gracia MD Pre-visit Planning (SDOH screening positive and tobacco screening negative) 12/04/2024 Travel 12/03/2024 9:45 AM EST Office Visit [address] [address] Irnee Singletary MD Chronic migraine without aura without status migrainosus, not intractable (Primary Dx); Anxiety 12/03/[address] [address] Lissy Gracia MD Appointment Request 12/03/2024 Travel 11/29/[address] [phone] Lissy Gracia MD 11/29/[address] [address] Lissy Gracia MD Care Management (C3- f/u call) 11/28/2024 9:00 AM EST Office Visit [facility] ADULT DENTAL [address] [place] [address] Wendi Pedroza Dental calculus (Primary Dx); Dental plaque; Subgingival dental calculus 11/28/[address] [address] Lissy Gracia MD Chronic bilateral low back pain, unspecified whether sciatica present 11/27/2024 Patient Outreach [facility] [address] [place] [address] Lissy Gracia MD Care Coordination (C3 CM-[facility] [employer] telephone call outreach) 11/26/2024 1:15 PM EST Office Visit [address] [address] Lissy Gracia MD Fibromyalgia (Primary Dx); Chronic migraine without aura without status migrainosus, not intractable 11/26/2024 Telephone [facility] MEDICINE [address] [place] [address] Susana Casillas MA Pain group 11/26/2024 Patient Outreach [address] [address] Lissy Gracia MD Care Coordination (C3 CM-[facility] telephone call outreach/) 11/26/2024 Travel 11/26/2024 Patient Outreach [address] [address] Lissy Gracia MD Care Coordination ([facility] CM-[facility] [employer] telephone call outreach) 11/25/2024 Patient Outreach [address] [address] Lissy Gracia MD Care Coordination (C3 CM-[facility] telephone call outreach) 11/21/2024 Refill [facility] [address] [place] [phone] Candice Moreland DO 11/19/2024 1:15 PM EST Office Visit [address] [address] Lissy Gracia MD Fibromyalgia (Primary Dx); Chronic migraine without aura without status migrainosus, not intractable 11/19/2024 8:00 AM EST Office Visit [facility] ADULT DENTAL [address] [place] [address] Ciro Rockwell, PENNIE Retained dental root (Primary Dx) 11/19/2024 Travel 11/19/2024 Refill [facility] MEDICINE [address] [place] [address] Lissy Gracia MD 11/19/2024 Patient Outreach [address] [address] Lissy Gracia MD Transition Of Care (Tcm) 11/18/2024 9:00 AM EST Office Visit [address] [address] Irene Singleatry MD Chronic migraine without aura without status migrainosus, not intractable (Primary Dx); Anxiety 11/18/[address] [address] Lissy Gracia MD Lab Orders 11/18/2024 Patient Outreach [address] [address] Lissy Gracia MD Care Coordination (C3 -[facility] telephone call outreach) 11/18/2024 Travel 11/15/[address] [address] Reinaldo Persaud, LILIANE Care Management (C3CM- f/u call) 11/14/2024 1:40 PM EST Office Visit [facility] [address] [place] [phone] Candice Moreland DO Mild persistent asthma without complication (Primary Dx) 11/12/2024 1:15 PM EST Office Visit [address] [address] Lissy Gracia MD Chronic migraine without aura without status migrainosus, not intractable (Primary Dx) 11/12/2024 Travel 11/11/2024 11:00 AM EST Office Visit [address] [address] Lissy Gracia MD Fibromyalgia (Primary Dx); Thrush, oral 11/11/2024 9:15 AM EST Office Visit [address] [address] Irene Singletary MD Chronic migraine without aura without status migrainosus, not intractable (Primary Dx); Anxiety 11/08/2024 Patient Outreach [address] [place] [address] Lissy Gracia MD Care Coordination (C3 CM-[facility] [employer] [employer] telephone call outreach) 11/07/2024 1:20 PM EST Office Visit [facility] [place] [address] Candice Moreland DO Mild persistent asthma with acute exacerbation (Primary Dx) 11/07/2024 9:00 AM EST Office Visit [facility] [place] [address] Irene Singletary MD Chronic migraine without aura without status migrainosus, not intractable (Primary Dx); Anxiety 11/07/2024 Patient Outreach [address] [place] [address] Lissy Gracia MD 11/07/2024 Travel 11/05/2024 1:15 PM EST Office Visit [address] [place] [address] Lissy Gracia MD Fibromyalgia (Primary Dx); Chronic migraine without aura without status migrainosus, not intractable; Tendency toward bleeding easily (CMS/HCC) 11/05/2024 Telephone [facility] [place] [address] Reinaldo Persaud RN Care Management (C3CM- initial assessment/ enrollment.) 11/05/2024 Patient Outreach [address] [place] [address] Lissy Gracia MD Care Coordination (C3 -[facility] [employer] [employer] telelphone call outreach) 11/05/2024 Refill [facility] [place] [address] Lissy Gracia MD Bronchitis 11/05/2024 Travel 10/31/2024 9:30 AM EST Office Visit [facility] [place] [address] Irene Singletary MD Chronic migraine without aura without status migrainosus, not intractable (Primary Dx); Anxiety 10/31/2024 Travel 10/30/2024 Patient Outreach [address] [place] [address] Lissy Gracia MD Care Coordination (C3 CM-[facility] telephone call outreach) 10/30/2024 Telephone [facility] MEDICINE [address] [place] [address] Reinaldo Persaud, LILIANE Care Management (C3CM- chart review) 10/30/2024 Orders Only [facility] External Provider, [facility] 10/29/2024 8:40 AM EST Office Visit [facility] [address] [place] [address] Rosana Cotton MD Upper back pain (Primary Dx); Chronic cough 10/29/2024 Telephone [facility] MEDICINE [address] [place] [address] Anitha Reed, RN Results 10/28/2024 11:00 AM EST Office Visit [address] [address] Lissy Gracia MD Fibromyalgia (Primary Dx); Bleeding from the ear, left; Chronic migraine without aura without status migrainosus, not intractable 10/28/2024 9:00 AM EST Office Visit [address] [address] Irene Singletary MD Chronic migraine without aura without status migrainosus, not intractable (Primary Dx); Anxiety 10/28/2024 Travel from Last 3 Months Immunizations Name Administration [...] Description 03/14/2025 2:15 PM EDT Office Visit [facility] MEDICINE [address] [place], [place] [phone] Lissy Gracia MD [address] [place], [place] [phone] Health Maintenance Due Date Last Done Comments [...] PM EST Bleeding from the ear, left HEMOGLOBIN A1C Routine 10/22/2024 3:49 PM EST Type 2 diabetes mellitus without complication, without long-term current use of insulin ([facility]) PROPHYLAXIS - ADULT Routine 09/11/2024 2 :00 PM EST Dental plaque Dental calculus Tartar deposits on teeth INTRAORAL - COMPLETE SERIES OF RADIOGRAPHIC IMAGES Routine 08/19/2024 1:30 PM EST Encounter for dental examination Dental calculus Dental plaque Periodontal disease PERIODIC ORAL EVALUATION - ESTABLISHED PATIENT Routine 08/19/2024 1:30 PM EST Encounter for dental examination Dental calculus Dental plaque Periodontal disease BI MAMMOGRAM SCREENING TOMOSYNTHESIS BILATERAL Routine 01/11/2024 2:45 PM EDT LIPID PANEL, STANDARD Routine 12/25/2023 9:46 AM EDT Diabetes due to underlying condition w oth circulatory comp ([facility]) PAP SMEAR Routine 11/22/2023 1:51 PM EST [...] Results * T-SPOT??.TB (11/25/2024 9:40 AM EST) Pathologist [facility] T Spot TB Negative Negative [facility] Comment:A negative test resu lt does [...] as aquantitative test. TS PANEL A 0 [facility] TS PANEL B 0 [facility] Negative Control Passed [facility] Positive Control Passed [facility] Comment:For additional infor bobby, please refer tohttp://education.[employer]/faq/OFY826(This link is being provided for informational/educational purposes only.)THIS TEST WAS PERFORMED AT:[employer] [id number] [place] [id number] MAXWELL MD,PHD 11/25/2024 9:40 AM EST 11/25/2024 11:06 AM EST Lissy Gracia MD LAB BLOOD ORDERABLES Final Res ult Performing Organization Address [facility] de Phone Number [facility] [address] [place] [phone] * (ABNORMAL) Reticulocyte Count (11/25/2024 9:40 AM EST) Reticulocytes Absolute 0.072 0.026 - 0.095 X10*6/uL [facility] Immature Retic Fraction 15.0 3.0 - 15.9 % [facility] Retic HGB Equivalent 27.9(L) 30.0 - 35.0 pg [facility] Reticulocyte Percent 1.4 0.5 - 1.8 % [facility] Blood Venous blood specimen / Unknown 11/25/2024 9:40 AM EST 11/25/2024 11:06 AM EST Lissy Graica MD LAB BLOOD ORDERABLES Final Res ult Performing Organization Address [facility] Co de Phone Number [facility] [address] [place] [phone] * Ferritin (11/25/2024 9:40 AM EST) Ferritin 22 10 - 250 ng/mL [facility] Blood Venous blood specimen / Unknown 11/25/2024 9:40 AM EST 11/25/2024 11:06 AM EST Lissy Gracia MD LAB BLOOD ORDERABLES Final Res ult Performing Organization Address [facility] de Phone Number [facility] [address] [place] [phone] * Influenza B (ID NOW Rapid Molecular) (11/14/2024 1:52 PM EST) Only the most recent of2 resultswithin the time period is included. Pathologist [facility] Influenza B Negative Negative, Indeterminate [facility] Swab 11/14/2024 1:52 PM EST Candice Aniceto DO POINT OF CARE TEST ENTER/GOPAL T ORDERABLES Final Result Performing Organization Address [facility]/ZIP Co de Phone Number [facility] [address] [place] [phone] * Influenza A (ID NOW Rapid Molecular) (11/14/2024 1:52 PM EST) Only the most recent of2 resultswithin the time period is included. Pathologist [facility] Influenza A Negative Negative, Indeterminate [facility] Swab 11/14/2024 1:52 PM EST Candice Aniceto DO POINT OF CARE TEST ENTER/GOPAL T ORDERABLES Final Result Performing Organization Address [facility] de Phone Number [facility] [address] [place] [phone] * POCT Rapid COVID Ag (11/14/2024 1:52 PM EST) Only the most recent of2 resultswithin the time period is included. [facility] Rapid COVID Ag Negative [facility] Swab 11/14/2024 1:52 PM EST Candice Suarezestefani DO POINT OF CARE TEST ENTER/GOPAL T ORDERABLES Final Result Performing Organization Address [facility] de Phone Number [facility] [address] [place] [phone] * POCT rapid strep A manually resulted (11/14/2024 1:52 PM EST) [facility] Rapid Strep A Screen Negative Negative, None Detected [facility] Swab 11/14/2024 1:52 PM EST us Candice Suarezestefani DO POINT OF CARE TEST ENTER/GOPAL T ORDERABLES Final Result [facility] [address] [place] [phone] [phone] * XR Chest 2 Views (10/30/2024 1:42 AM EST) Anatomical Region Laterality Modality Chest Radiographic Liss ging 10/30/2024 1:42 AM EST Narrative 10/30/2024 1:44 AM EST ? [facility] ?[address] ?[place] [address] ?XRay Report ? Signed ? Patient: Irene Garcia ?MR#: ?? [id number] ? : 1975 ?Acct:[id number] ? Age/Sex: 48 / F ?ADM Date: 10/30/24 ? Loc: HO.ED ? Attending Dr: ? Ordering Physician: Generic ED Physician ?? Date of Service: 10/30/24 ?? Procedure(s): XR chest 2V ?? Accession Number(s): [id number] ? cc: Generic ED Physician; [facility] ? CLINICAL HISTORY: cough, lung pain [...] DD/ 0142 ? TD/TT: 10/30/24 0142 ? Power Shovel Operator Helper: ? Procedure Note Bayron, John - 10/30/[address] [address] XRay Report Signed Patient: Irene GarciaMR#: [id number] : 1975Acct:[id number] Age/Sex: 48 / FADM Date: 10/30/24 Loc: .ED Attending Dr: Ordering Physician: Generic ED Physician Date of Service: 10/30/24 Procedure(s): XR chest 2V Accession Number(s): [id number] cc: Generic ED Physician; [facility] CLINICAL HISTORY: cough, lung pain 2 [...] OV> 10/30/24 014 DD/ 1 TD/TT: 10/30/24141 Power Shovel Operator Helper: [facility] External Provider IMG XR PROCEDURES Final Result * SARS-CoV-2 RNA, Influenza A/B, and RSV RNA, Ql NAAT (10/30/2024 1:09 AM EST) Influenza A PCR NEGATIVE Negative [facility] Influenza B PCR NEGATIVE Negative [facility] Resp Syncy Virus RNA Qual PCR NEGATIVE Negative [facility] SARS COV2 PCR NEGATIVE Negative [facility] Comment:All test results mus t be [...] use by authorized laboratories.Testing performed on the [employer] GeneXpert utilizingreal-time RT-PCR.All SARS CoV2 and positive influenza A/B results arereported to [facility]. 10/30/2024 1:09 AM EST 10/30/2024 1:12 AM EST us Generic External Data Provider LAB MICROBIOLOGY - GENERAL ORDERABLES Final Result [facility] [address] [place] [phone] * (ABNORMAL) CBC auto differential (10/28/2024 12:08 PM EST) White Blood Count 6.1 4.8 - 10.8 X10*3/uL [facility] Red Blood Count 4.85 4.20 - 5.50 X10*6/uL [facility] Hemoglobin 12.1 12.0 - 16.0 g/dl [facility] Hematocrit 37.4 37.0 - 47.0 % [facility] Mean Corpuscular Volume 77.1(L) 80.0 - 98.0 fL [facility] Mean Corpuscular Hemoglobin 24.9(L) 27.0 - 33.0 pg [facility] Mean Corpuscular HGB Conc 32.4 31.0 - 35.0 g/dl [facility] Red Cell Distribution Width 15.3 11.0 - 16.0 % [facility] Platelet Count 369 160 - 400 X10*3/uL [facility] Mean Platelet Volume 9.6 9.4 - 12.3 fL [facility] Neutrophils Percent Auto 56.2 45 - 73 % [facility] Imm Gran Pct Auto 0.3 0.0 - 0.4 % [facility] Lymphocytes Percent Auto 34.7 20 - 40 % [facility] Monocytes Percent Auto 7.1 2 - 11 % [facility] Eosinophils Percent Auto 1.2 0 - 4 % [facility] Basophils Percent Auto 0.5 0 - 2 % [facility] NRBC Pct Auto 0.0 0.0 - 0.2 /100WBC [facility] Neutrophils Absolute Auto 3.4 2.0 - 8.3 x10*3/uL [facility] Imm Gran Abs Auto 0.02 0.00 - 0.03 X10*3/uL [facility] Lymphocytes Absolute Auto 2.1 1.2 - 4.9 X10*3/uL [facility] Monocytes Absolute Auto 0.4 0.1 - 1.2 X10*3/uL [facility] Eosinophils Absolute Auto 0.1 0.0 - 0.4 X10*3/uL [facility] Basophils Absolute Auto 0.0 0.0 - 0.2 X10*3/uL [facility] NRBC Abs Auto 0.000 0.0 - 0.012 X10*3/uL [facility] Blood Venous blood specimen / Unknown 10/28/2024 12:08 PM EST 10/28/2024 1:08 PM EST us Lissy Gracia MD LAB BLOOD ORDERABLES Final Res ult [facility] [address] [place] [phone] * (ABNORMAL) Prothrombin Time-INR (10/28/2024 12:08 PM EST) Prothrombin Time 10.8(L) 10.9 - 12.4 SEC [facility] INTERNATIONAL NORM RATIO 0.9 0.9 - 1.1 [facility] Comment:INTERNATIONAL NORMAL IZED RATIO (INR) REFERENCE [...] Res ult Performing Organization Address [facility] Co de Phone Number [facility] [address] [place] [address] [phone] * (ABNORMAL) Hemoglobin A1c (10/22/2024 3:49 PM EST) Hemoglobin A1c 8.7(H) <6.0 % [facility] Comment:Hemoglobin A1C Refer ence Range Adults: 4.8 - 6.0 % Non diabetic: < 6.0 % Goal: < 7.0 %Additional Action Suggested: > 8.0 %Note: Hemoglobin A1c results are invalid for patients with abnormal amounts of HbF. Blood transfusions may impact the HbA1c concentration in the patient sample. Estimated Average Glucose 203 mg/dL [facility] Comment:eAG = Estimated ave rage glucose which is %A1C expressed asaverage glucose, using the formula of the U0K-TpykzdzWlzaaxl Glucose study (ADAG), Diabetes Care, Vol.31,#8,May. 2007 Blood Venous blood specimen / Unknown 10/22/2024 3:49 PM EST 10/22/2024 5:46 PM EST us Lissy Gracia MD LAB BLOOD ORDERABLES Final Res ult Performing Organization Address [facility] Co de Phone Number [facility] [address] [place] [address] [phone] * BI Mammogram Screening Tomosynthesis Bilateral (01/11/2024 2:45 PM EDT) Anatomical Region Laterality Modality Breast Bilateral Mammography 01/11/2024 2:45 PM EDT Narrative 02/06/2024 6:07 AM EDT ? [facility] ? [address] ?[place] [address] ? Mammography Report ? Signed ? Patient: Ibanez Mundo,Irene ?MR#: ?? [id number] ? : 1975 ?Acct:[id number] ? Age/Sex: 48 / F ?ADM Date: 03/28/24 ? Loc: HO.MAMMO ? Attending Dr: Lissy Gracia MD ? Ordering Physician: Lissy Gracia ?Results: 1Negative ? Date of Service: 01/11/24 ?Follow Up: 1 Year From Orig ?? inal Mammogram ? Procedure(s): MM tomosynthesis screening BI ?? Accession Number(s): [id number] ? cc: Lissy Gracia ? EXAMINATION: ?? [...] 0604 ? DD/ 1445 ? TD/TT: ? Power Shovel Operator Helper: ? Procedure Note Donotuseinterpreter, Image - [facility] [address] [place], [place] [address] Mammography Report Signed Patient: Irene GarciaMR#: [id number] : 1975Acct:[id number] Age/Sex: 48 / FADM Date: 01/11/24 Loc: [facility] Attending Dr: Lissy Gracia MD Ordering Physician: Rodriguez Graciaults: 1Negative Date of Service: 01/11/24Follow Up: 1 Year From Orig inal Mammogram Procedure(s): MM tomosynthesis screening BI Accession Number(s): [id number] cc: Lissy Gracia EXAMINATION: MM SCREENING DIGITAL [...] for their next mammogram. Dictated By: Joi Rivrea MD Signed By: <Electronically signed by Joi Rivera MD in OV> 02/06/24 0604 DD/ 1445 TD/TT: Power Shovel Operator Helper: Lissy Gracia MD IMG BI PROCEDURES Final Result * Lipid Panel, Standard (12/25/2023 9:46 AM EDT) Triglycerides 44 <150 mg/dL [facility] Comment:Desirable Triglyceri de: less than 150 mg/dLBorderline High Triglyceride 150-199 mg/dLHigh Triglyceride: 200-499 mg/dLVery High Triglyceride: greater than or equal to 5OO mg/dL Cholesterol 145 <200 mg/dL [facility] Comment:Desirable Cholestero l: less than 200 mg/dLBorderline High Cholesterol: 200-239 mg/dLHigh Cholesterol: greater than 239 mg/dL LDL Cholesterol Calculated 64 <100 mg/dL [facility] Comment:Desirable LDL: less than 100 mg/dLNear Optimal/Above Optimal LDL: 110- 129 mg/dLBorderline High LDL: 130-159 mg/dLHigh LDL: 160-189 mg/dLVery High LDL: greater than or equal to 190 mg/dL HDL Cholesterol 73 >40 mg/dL [facility] Comment:Desirable HDL: great er than 40 mg/dL Note: This HDL assay may give artificially low results in patients with liver disease. Blood Venous blood specimen / Unknown 12/25/2023 9:46 AM EDT 12/25/2023 11:04 AM EDT us Lissy Gracia MD LAB BLOOD ORDERABLES Final Res ult [facility] [address] [place] [address] [phone] * Pap Smear (11/22/2023 1:51 PM EST) 11/22/2023 1:51 PM EST 11/24/2023 8:30 AM EST Narrative [facility] - 12/04/2023 10:46 AM EST ----- ------- Name: Irene Garcia ?Age/Sex: 47/F ? : 1975 Unit#: [id number] ?? Attend Dr: Clare Jackson CNM ?Re11/22/23 ?Status: DEP REF ? Location: HO.LNP ?Disch: ? ----- ------- SPEC : [id number] ? RECD: 11/24/23 ? STATUS: ??SOUT ? REQ NUM: [id number] ? CHENG: 11/22/23-1350 ? SUBM DR: Clare Jackson CNM ? ENTERED: ??11/24/23-1109 ?SP TYPE: Pap Smr [...] Not Detected ? HPV testing performed by [facility], [place], [place]. ??See reference laboratory ?? portion of the EMR for entire report. ?Clinical Information LMP: 11/14/23 Previous PAP test: 09/12/22, HPV+ ? Material Received ?? ThinPrep-Cervical Copies To: ?? Lissy Gracia ?? [address] ?? [place] [address] ?? [phone] ?? Clare Jackson CNM ?? [address] [place] [address] Dr. Dudley Torres ?? [place] [address] ?? [phone] ----- ------- Signed (signature on file) Candelaria Winchester 12/04/23 1046 ? ----- ------- ? END OF REPORT ? us Generic External Data Provider LAB CYTOLOGY ORDE RABLES Final Result Performing Organization Address [facility] de Phone Number [facility] [address] [place] [phone] * Albumin, Random Urine W/Creatinine (11/06/2023 2:33 PM EST) Creatinine, Urine 59.51 mg/dL [facility] Microalbumin Urine 14.0 mg/L [facility] Microalbum Creatinine Ratio Ur 23.5 <30 ug/mg cr [facility] Comment:Albumin/Creatinine R atio Reference Ranges: Normal: < 30 ug/mg creatinine Microalbuminuria: 30 - 300 ug/mg creatinineClinical Albuminuria: > 300 ug/mg creatinine Urine (Urine, Random) 11/06/2023 2:33 PM EST 11/06/2023 4:16 PM EST us Lissy Gracia MD LAB URINE ORDERABLES Final Res ult Performing Organization Address [facility] Co de Phone Number [facility] [address] [place] [address] [phone] * (ABNORMAL) HPV mRNA E6/E7 w/Reflex to HPV Genotypes 16, 18/45 (09/12/2022 9:53 AM EST) HPV nRNA E6/E7 Detected(A ) Not Detected [facility] Comment:Methodology: Transcr iption-Mediated AmplificationThis assay detects E6/E7 viral messenger RNA (mRNA) from 14high-risk HPV types (16,18,31,33,35,39,45,51,52,56,58,59,66,68).Cervical sources are required for HPV testing.If a vaginal source from a patient who has had atotal hysterectomy with removal of cervix wassubmitted, please contact the testing laboratoryfor alternative testing options.For additional information, please refer tohttp://education.[employer]/faq/VXZ281p7(This link if provided for information/educational purposes only.)THIS TEST WAS PERFORMED AT:[facility] [place] [address],[place] [address]PSLQSCASSIUS HEIN MD HPV 16 RNA NOT DETECTED NOT DETECTED [facility] HPV 18/45 RNA NOT DETECTED NOT DETECTED [facility] Comment:Methodology: Transcr iption Mediated AmplificationCervical sources are required for HPV testing.If a vaginal source from a patient who has had atotal hysterectomy with removal of cervix wassubmitted, please contact the testing laboratoryfor alternative testing options.THIS TEST WAS PERFORMED AT:[facility] [place] [address],[place] [address]CASSIUS HEIN MD 09/12/2022 9:53 AM EST 09/12/2022 12:00 PM EST us [facility] External Provider LAB CYT OLOGY ORDERABLES Final Result [facility] [address] [place] [address] [phone] * HEPATITIS C ANTIBODY (06/16/2020 12:35 PM EDT) HEPATITIS C ANTIBODY [facility] Comment: Antibodies to HCV not detected; does not exclude early acute HCV infection. 06/16/2020 12:3 5 PM EDT Historical Provider HISTORICAL/NON ORDERABLE LABS Final Result Performing Organization Address [facility] Phone Number [facility] [address] * HIV AB/AG (06/16/2020 12:35 PM [...] detection of this assay. ?? The [employer] HIV Ag/Ab Combo assay result and supplemental assay results should be interpreted in conjunction with the patient's clinical presentation, history and other laboratory results. ??If the results are inconsistent with clinical evidence, additional testing is suggested to confirm the result. 06/16/2020 12:3 5 PM EDT Historical Provider HISTORICAL/NON ORDERABLE LABS Final Result Performing Organization Address [facility] Number [facility] Critical access hospital [address] from Last 3 Months or Most Recently Relevant to Health Maintenance Insurance [facility] C3 HSN PARTIAL * Guarantor: Irene Garcia Account Type Relation to Patient Date of Phone Billing Address Personal/Family Self [address] Care Teams Steamtable Worker Relationship Specialty Start Date End Date Lissy Gracia MD [address] [place] [phone] PCP - General Family Medicine 06/07/21 Reinaldo Persaud RN [address] [place] [phone] Language Arts TeacherSodium Methylate Operator 11/05/24
--- OUTSIDE RECORDS SUMMARY | 2025-01-23 08:16 | XMS_ITS | Encounter Summary ---
Author Organization [facility] Address [address] [place] [address] Care Team Providers Care Investigative Agent Name Role Phone Lissy Gracia MD Primary Care Provider [phone] Reinaldo Persaud RN Unavailable [phone] Reason for Visit * Reason Comments Med Refill Encounter Details Date Type Department Care Team (Late st Contact Info) Description 12/26/2022 Refill [facility] [address] [place] [phone] Adriana Ramesh MD [address] [place] [address] [phone] Primary hypertension Social History Tobacco Use Types [...] 03/14/2025 2:15 PM EDT Office Visit [facility] [address] [place] [phone] Lissy Gracia MD [address] [place] [phone] documented as of this encounter Visit Diagnoses Diagnosis Primary hypertension Unspecified essential hypertension documented in this encounter Care Teams Investigative Agent Relationship Specialty Start Date End Date Lissy Gracia MD [address] [place] [address] PCP - General Family Medicine 06/07/21 Reinaldo Persaud RN [address] [place] [address] Photography AssistantBioanalyst 11/05/24 documented as of this encounter
--- OUTSIDE RECORDS SUMMARY | 2025-01-23 08:16 | XMS_ITS | Encounter Summary ---
Author Organization [employer] Address [address] [place] [address] Care Team Providers Care Corsage Maker Name Role Phone Lissy Gracia MD Primary Care Provider Reinaldo Persaud RN Unavailable [phone] Reason for Visit * Reason Comments Dental Exam Encounter Details Date Type Department Care Team (Late st Contact Info) Description 08/19/2024 1:30 PM EST Office Visit [facility] [address] [place] [address] Romina Frank DDS [address] [place] [address] Encounter for dental examination (Primary Dx); Dental calculus; Dental plaque; Periodontal disease Social History Tobacco Use Types Packs/Day Years [...] as of this encounter Progress Notes * Romina Frank DDS - 08/19/2024 1:30 PM EST Dental procedures in this visit D0150 - COMPREHENSIVE ORAL EVALUATION - NEW OR ESTABLISHED PATIENT (Completed) Service provider: Romina Frank DDS Billing provider: Romina Frank DDS D0210 - INTRAORAL - COMPLETE SERIES OF RADIOGRAPHIC IMAGES (Completed) Service provider: Romina Frank DDS Billing provider: Romina Frank DDS [id number] - CASE PRESENTATION, DETAILED AND EXTENSIVE TREATMENT PLANNING (Completed) Service provider: Romina Frank DDS Billing provider: Romina Frank DDS Patient ID: Irene Flower is a 48 y.o. female. Time Out: Timeout Date: 08/19/24, Timeout Time: 1337 (Time out for dental exam) Location: [facility] Tooth: Maxilla and Mandible Procedure: Exam and X-rays Verified the above with patient, custody assistant, and provider. Confirmed via patient's chart, intraorally and by radiographs. Cad Technician: not applicable Chief Complaint Patient presents with Dental Exam Medical Hx: Vitals: There were no vitals taken for this visit. 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 [place] 06/09/2023 Gastroesophageal reflux disease 06/17/2022 Hyperlipidemia 02/15/2013 Hypertensive disorder 12/02/2020 Iron deficiency 02/15/2013 Recurrent depression ([facility] 08/10/2012 Type 2 diabetes mellitus ([facility] 08/21/2015 Medications: Outpatient Encounter Medications as of 08/19/2024 Medication Sig Dispense Refill acetaminophen (Tylenol) 325 MG tablet albuterol (2.5 MG/3ML) 0.083% nebulizer solution Take 3 mL (2.5 mg) by nebulization every 4 (four) hours if needed for wheezing. 75 mL 3 albuterol (Ventolin HFA) 108 (90 Base) MCG/ACT inhaler INHALE 2 PUFFS BY MOUTH EVERY 4 HOURS NEEDED 18 g 6 Alcohol Swabs (SM Alcohol Prep) 70 % pads USE TWICE DAILY DIRECTED 100 each 11 amitriptyline (Elavil) 50 MG [...] MOUTH EVERY MORNING NEEDED 90 tablet 3 chlorhexidine (Peridex) 0.12 % solution Use 15 mL in the mouth or throat if needed (for mouthwash 15 ml for 30 seconds, swish and spit) for up to 14 days. 473 mL 0 clotrimazole (Lotrimin) 1 % cream Apply topically 2 times daily for 28 days. 30 g 0 cyclobenzaprine (Flexeril) 10 MG tablet Take 1 tablet (10 mg) by mouth at bedtime for 10 days. 10 tablet 0 Diclofenac Sodium 1 % gel Apply 1 Application topically if needed in the morning and at bedtime (pain in feet). 100 g 6 docusate sodium (Colace) 100 MG capsule Take 100 mg by mouth at bedtime. Excedrin Tension Headache 500-65 MG tablet TAKE 2 TABLETS BY MOUTH ONCE FOR 1 DOSE. NO MORE THAN 2 TABLETS PER DAY OR 10 TABLETS PER MONTH famotidine (Pepcid) 40 MG tablet Take 40 mg by mouth at bedtime. FeroSul 325 (65 Fe) MG tablet TAKE 1 TABLET BY MOUTH EVERY OTHER DAY IN THE MORNING WITH FOOD OR ORANGE JUICE 45 tablet 6 fluticasone (Flonase) 50 MCG/ACT nasal spray INHALE 1 TO 2 SPRAYS IN EACH NOSTRIL ONCE DAILY NEEDED 48 g 3 fluticasone (Flovent) 110 MCG/ACT inhaler Inhale 1 puff in the morning and at bedtime. Rinse mouth with water after use to reduce aftertaste and incidence of candidiasis. Do not swallow. 12 g 11 FREESTYLE LITE test strip 1 each by Other route 3 times daily. Use as instructed 100 each 11 gabapentin (Neurontin) 300 MG capsule TAKE 1 CAPSULE BY MOUTH TWICE DAILY IN THE MORNING AND IN THEEVENING and TAKE 2 CAPSULES BY MOUTH EVERY DAY AT BEDTIME 120 capsule 11 glipiZIDE XL (Glucotrol XL) 10 MG 24 hr tablet TAKE 1 TABLET BY MOUTH EVERY MORNING 90 tablet 0 hydroCHLOROthiazide (HYDRODiuril) 25 MG tablet Take 1 [...] 11 LORazepam (Ativan) 0.5 MG tablet Take 0.5 mg by mouth if needed in the morning and at bedtime. metFORMIN (Glucophage) 500 MG tablet [...] disintegrating tablet DISSOLVE 1 TABLET ENCIMA DE LENGUA EVERY 8 HOURS DIRECTED 20 tablet 3 pantoprazole (ProtoNix) 40 MG EC tablet TAKE 1 TABLET BY MOUTH EVERY MORNING 30 MINUTES BEFORE BREAKFAST senna (Senokot) 8.6 MG tablet TAKE 2 TABLETS BY MOUTH EVERY DAY AT BEDTIME FOR CONSTIPATION sertraline (Zoloft) 100 MG tablet TAKE 1 AND 1/2 TABLETS BY MOUTH IN THE MORNING Spacer/Aero-Holding Chambers (Pro Comfort Spacer Adult) [facility] [place] [place] For use with inhaler. 1 each 0 tiZANidine (Zanaflex) 2 MG tablet Take 1 tablet (2 mg) by mouth if needed at bedtime for muscle spasms for up to 10 days. 10 tablet 0 TRUEplus Lancets [facility] BLOOD SUGAR 3 TIMES A DAY 100 each 11 Trulicity 1.5 MG/0.5ML solution pen-injector INJECT ONE PEN (=1.5MG) SUBCUTANEOUSLY ONCE A WEEK DIRECTED 2 mL 6 [DISCONTINUED] celecoxib (CeleBREX) 200 MG capsule Take 1 capsule (200 mg) by mouth 2 times daily. 30 capsule 1 [DISCONTINUED] cyclobenzaprine (Flexeril) 10 MG tablet Take 10 mg by mouth 3 times daily. [DISCONTINUED] ketorolac (Toradol) 10 MG tablet Take 1 tablet by mouth if needed in the morning, atnoon, and at bedtime. [DISCONTINUED] meloxicam (Mobic) 15 MG tablet Take 1 tablet (15 mg) by mouth in the morning. 15 tablet 0 [DISCONTINUED] naproxen (Naprosyn) 500 MG tablet Take 500 mg by mouth 2 times daily. No facility-administered encounter medications on file as of 08/19/2024. Objective HPI Soft Tissue Exam No findings documented this visit Head and Neck Exam: Lymph Nodes, Lips, Palate, Buccal Mucosa, Floor of Mouth, Tongue, Tonsils, Alveolar Ridges, Oropharynx, Salivary Ducts, and Vestibules - no significant findings observed OCS: negative Dental Exam Radiographic Interpretation: Associated radiographs for today's visit were reviewed and finding(s) were discussed with the patient. Findings include: plaque, inflammation generalized, redness- erythematous aspect of the gums, food debris, calculus, bone loss- moderate generalized Hard Tissue Exam: No decay Perio Dx: Generalized Chronic Periodontitis Stage: II Grade: C- stressed the need to clean teteh properly and more consistently. Pt reports ERIC Reference tooth chart for additional findings. Oral Cancer Risk: Low Risk Oral Hygiene Instructions: [place]creek two times daily, modified briceno technique, Floss daily, Electric toothbrush, [place]creek Tongue, Chlorhexidine Caries Risk Assessment: Low- no risk factor Assessment/Plan PAD and perio eval Patient tolerated procedure well, all questions answered and expressed understanding. Dismissed in good condition. NV: PAD and perio eval Retirement Manager: Candice Savage Dentist: Romina Frank DDS documented in this encounter Plan of Treatment Upcoming Encounters Date Type Department Care Team (Late st Contact Info) Description 03/14/2025 2:15 PM EDT Office Visit [facility] [address] [place] [phone] Lissy Gracia MD [address] [place] [phone] documented as of this encounter Procedures Procedure Name Priority Date/Time Associated Diagnosis Comments PERIODIC ORAL EVALUATION - ESTABLISHED PATIENT Routine 08/19/2024 1:30 PM EST Encounter for dental examination Dental calculus Dental plaque Periodontal disease INTRAORAL - COMPLETE SERIES OF RADIOGRAPHIC IMAGES Routine 08/19/2024 1:30 PM EST Encounter for dental examination Dental calculus Dental plaque Periodontal disease CASE PRESENTATION, DETAILED AND EXTENSIVE TREATMENT PLANNING Routine 08/19/2024 1:30 PM EST Encounter for dental examination Dental calculus Dental plaque Periodontal disease documented in this encounter Visit Diagnoses Diagnosis Encounter for dental examination- Primary Dental calculus Accretions on teeth Dental plaque Accretions on teeth Periodontal disease Unspecified gingival and periodontal disease documented in this encounter Additional Health Concerns Assessment Noted Time PHQ-9 Depression Total Score: 0 02/05/20 24 1:47 PM EDT documented as of this encounter Care Teams Corsage Maker Relationship Specialty Start Date End Date Lissy Gracia MD [address] [place] [address] PCP - General Family Medicine 06/07/21 Reinaldo Persaud RN [address] [place] [phone] Sprue Cutting Press OperatorPapeterie Table Assembler 11/05/24 documented as of this encounter
--- OUTSIDE RECORDS SUMMARY | 2025-01-23 08:16 | XMS_ITS | Encounter Summary ---
Author Organization [employer] Address [address] [place] [address] Care Team Providers Care Tile Inspector Name Role Phone Lissy Gracia MD Primary Care Provider Reinaldo Persaud RN Unavailable [phone] Reason for Visit * Reason Comments Med Refill Encounter Details Date Type Department Care Team ([facility] st Contact Info) Description 08/19/2024 Refill [facility] [address] [place] [address] Adriana Ramesh MD [address] [place] [address] Type 2 diabetes mellitus with hyperglycemia, without long-term current use of insulin ([facility]) Social History Tobacco Use Types Packs/Day Years [...] 2:15 PM EDT Office Visit [facility] [address] [place] [phone] Lissy Gracia MD [address] [place] [phone] documented as of this encounter Visit Diagnoses Diagnosis Type 2 diabetes mellitus with hyperglycemia, without long-term current use of insulin ([facility]) documented in this encounter Additional Health Concerns Assessment Noted Time PHQ-9 Depression Total Score: 0 02/05/20 24 1:47 PM EDT documented as of this encounter Care Teams Tile Inspector Relationship Specialty Start Date End Date Lissy Gracia MD [address] [place] [phone] PCP - General Family Medicine 06/07/21 Reinaldo Persaud RN [address] [place] [phone] Hand Cloth CutterAssistant Editor 11/05/24 documented as of this encounter
--- OUTSIDE RECORDS SUMMARY | 2025-01-23 08:16 | XMS_ITS | Encounter Summary ---
Author Organization [employer] Address [address] 7t [place] [address] Care Team Providers Care Digital Asset Manager Name Role Phone Lissy Gracia MD Primary Care Provider [phone] Reinaldo Persaud RN Unavailable [phone] Reason for Referral * Consultation (STAT) - Closed Specialty Diagnoses / Procedures Referred By Contac t Referred To Contact Pulmonary Disease Diagnoses Mild persistent asthma without complication Lissy Gracia MD [address] [place] [address] Phone: tel: fax: [facility] Pulmonary [address] 1[address] Floor [place], [place] Phone: tel: fax: Referral ID Status Reason Start Date Expiration Date V isits Requested Visits Authorized [id number] Closed Specialty Services Required 09/02/2024 09/02/2025 6 6 Encounter Details Date Type Department Care Team (Late st Contact Info) Description 09/02/2024 Orders Only [facility] MEDICINE [address] [place] [address] Lissy Gracia MD [address] [place] [address] [phone] Mild persistent asthma without complication (Primary Dx) [...] 2:15 PM EDT Office Visit [facility] MEDICINE [address] [place], [place] [phone] Lissy Gracia MD 230 [place] [address] Scheduled Referrals Name Type Priority Associated Diagnoses [...] documented as of this encounter Care Teams Digital Asset Manager Relationship Specialty Start Date End Date Lissy Gracia MD 230 [place] [address] PCP - General Family Medicine 06/07/21 Reinaldo Persaud, LILIANE [address] [place] [address] Sweet Pickled Fruit MakerTractor Technician 11/05/24 documented as of this encounter
--- OUTSIDE RECORDS SUMMARY | 2025-01-23 08:16 | XMS_ITS | Encounter Summary ---
Author Organization [employer] Address [address] 7t [place] [address] Care Team Providers Care Property Economist Name Role Phone Lissy Gracia MD Primary Care Provider [phone] Reinaldo Persaud RN Unavailable [phone] Reason for Visit * Reason Onset Date Comments Med Refill 06/20/2024 Encounter Details Date Type Department Care Team ([facility] st Contact Info) Description 06/20/2024 Telephone [facility] MEDICINE 230 [place] [address] Lissy Gracia MD 230 [place] [address] Med Refill Social History Tobacco Use Types [...] MG/0.5ML solution pen-injector To be sent to: [facility] - [place], [place] - [address] [facility] documented in this encounter Plan of Treatment Upcoming Encounters Date Type Department Care Team (Late st Contact Info) Description 03/14/2025 2:15 PM EDT Office Visit [facility] MEDICINE [address] [place] [address] Lissy Gracia MD 230 [place] [address] documented as of this encounter Visit Diagnoses Not on filedocumented in this encounter Additional Health Concerns Assessment Noted Time PHQ-9 Depression Total Score: 0 02/05/20 24 1:47 PM EDT documented as of this encounter Care Teams Property Economist Relationship Specialty Start Date End Date Lissy Gracia MD 230 [place] [address] PCP - General Family Medicine 06/07/21 Reinaldo Persaud RN [address] [place] [address] Patent ParalegalDirector It 11/05/24 documented as of this encounter
--- OUTSIDE RECORDS SUMMARY | 2025-01-23 08:17 | XMS_ITS | Encounter Summary ---
Author Organization [employer] Address [address] 7t [place] [address] Care Team Providers Care Solar Sales Representative Name Role Phone Lissy Gracia MD Primary Care Provider [phone] Reinaldo Persaud RN Unavailable [phone] Reason for Visit * Reason Onset Date Comments Monday Chronic Pain Group 01/22/2025 Encounter Details Date Type Department Care Team ([facility] st Contact Info) Description 01/22/2025 Telephone [facility] MEDICINE 230 [place] [address] Lissy Gracia MD 230 [place] [address] Monday Chronic Pain Group Social History Tobacco Use Types Packs/Day Years [...] Telephone Encounter - Susana Casillas [place] - 01/22/2025 1:52 PM EDT T/c placed to schedule appt for Mondays Chronic pain group. Lvm for pt to cb documented in this encounter Plan of Treatment Upcoming Encounters Date Type Department Care Team (Late st Contact Info) Description 03/14/2025 2:15 PM EDT Office Visit [facility] MEDICINE [address] [place] [address] Lissy Gracia MD [address] [place] [address] documented as of this encounter Visit Diagnoses Not on filedocumented in this encounter Additional Health Concerns Assessment Noted Time PHQ-9 Depression Total Score: 0 02/05/20 24 1:47 PM EDT documented as of this encounter Care Teams Solar Sales Representative Relationship Specialty Start Date End Date Lissy Gracia MD 230 [place] [address] PCP - General Family Medicine 06/07/21 Reinaldo Persaud, LILIANE [address] [place] [address] Cattle FeederShared Services And Outsourcing Manager 11/05/24 documented as of this encounter
--- OUTSIDE RECORDS SUMMARY | 2025-01-23 08:17 | XMS_ITS | Encounter Summary ---
Author Organization [employer] Address [address] 7t [place] [address] Care Team Providers Care Homeworker Name Role Phone Lissy Gracia MD Primary Care Provider [phone] Reinaldo Persaud RN Unavailable [phone] Reason for Visit * Reason Onset Date Comments Appointment Request 10/17/2023 Encounter Details Date Type Department Care Team ([facility] st Contact Info) Description 10/17/2023 Telephone [facility] MEDICINE [address] [place] [address] Lissy Gracia MD [address] [place], [place] [phone] Appointment Request Social History Tobacco Use Types [...] follow up . Please contact pt @ [phone] Marshallese Speaker documented in this encounter Plan of Treatment Upcoming Encounters Date Type Department Care Team (Late st Contact Info) Description 03/14/2025 2:15 PM EDT Office Visit [facility] MEDICINE [address] [place] [address] Lissy Gracia MD [address] [place] [address] documented as of this encounter Visit Diagnoses Not on filedocumented in this encounter Additional Health Concerns Assessment Noted Time PHQ-9 Depression Total Score: 0 06/09/20 23 3:37 PM EDT documented as of this encounter Care Teams Homeworker Relationship Specialty Start Date End Date Lissy Gracia MD [address] [place] [address] PCP - General Family Medicine 06/07/21 Reinaldo Persaud RN [address] [place] [address] Mold Design EngineerMixing Picker Tender 11/05/24 documented as of this encounter
--- OUTSIDE RECORDS SUMMARY | 2025-01-23 08:17 | XMS_ITS | Clinical Summary ---
Author Organization [facility] ity Address [address] [place] [address] Care Team Providers Care Commutator Operator Name Role Phone Unavailable Primary Care Provider [...] age to complete this topic Meningococcal B Vaccine Aged Out No l onger eligible based on patient's age to complete [...]
--- OUTSIDE RECORDS SUMMARY | 2025-01-23 08:17 | XMS_ITS | Encounter Summary ---
Author Organization [employer] Address [address] 7t [place] [address] Care Team Providers Care Clinical Associate Name Role Phone Lissy Gracia MD Primary Care Provider [phone] Reinaldo Persaud RN Unavailable [phone] Reason for Visit * Reason Comments Med Refill Encounter Details Date Type Department Care Team ([facility] st Contact Info) Description 12/20/2023 Refill [facility] MEDICINE [address] [place], [place] [phone] Lissy Gracia MD [address] [place], [place] [phone] Chronic bilateral low back pain, unspecified whether [...] Description 03/14/2025 2:15 PM EDT Office Visit [facility] MEDICINE [address] [place] [address] Lissy Gracia MD 230 [place] [address] documented as of this encounter Visit Diagnoses Diagnosis Chronic bilateral low back pain, unspecified whether sciatica present documented in this encounter Additional Health Concerns Assessment Noted Time PHQ-9 Depression Total Score: 0 06/09/20 23 3:37 PM EDT documented as of this encounter Care Teams Clinical Associate Relationship Specialty Start Date End Date Lissy Gracia MD [address] [place] [address] PCP - General Family Medicine 06/07/21 Reinaldo Persaud RN [address] [place] [address] Vp ClinicalDirector Of Early Childhood Education 11/05/24 documented as of this encounter
--- OUTSIDE RECORDS SUMMARY | 2025-01-23 08:17 | XMS_ITS | Continuity of Care Document ---
Author Organization [facility] Address [address] [place] [address] Phone Care Team Providers Care Noteman Name Role Phone Madatovian, DO DO, Harut [...] Test strips apply 1 not specified by [facility]non-drug; combo) route 3 times every day 1 [...] Diagnoses Date Provider Providers Copied on Encounter [facility], [address], [place], [place], [id number], [place] tel:[phone] [place] No Information 1 Madatovian, DO Harut. [address] [address], [place], [address]. tel:[phone] [facility], [address], [place], [place], [id number], [place] tel:[phone] [address] [place] No Information Dec-0 - 0 Madatovian, DO Harut. [address] [facility] [address], [place], [address]. tel:[phone] OV 15 MIN M/F [facility], [address], [place], [place], [id number], [place] tel:[phone] [place] Lab results (chief complaint) Insulin dependent diabetes mellitusLong term (current) use of insulinHyperlip idemia, unspecified hyperlipidemia type Madatovian, DO Harut. [address], [address]. tel:[phone] [facility], [address], [place], [place], [id number], [place] tel:[phone] [place] Blood work only (chief complaint) No Information No Information OV 20 MIN M/F [facility], [address], [place], [place], [id number], [place] tel:[phone] [place] blood test (chief complaint) weight loss (chief complaint) Encntr for general adult medical exam w/o abnormal findingsWeight lossHistory of uterine fibroid Madatovian, DO Harut. [address] [facility] [address], [place], [address]. tel:[phone] Family History Family Member Type Diagnosis Age At Onset No Information Payers Payer name Insurance type Covered constitution party ID Authoriza tion(s) No Information Social History [...] Order: Lab Order CBC (INC LUDES DIFF/PLT) ([id number]), Ordered on: Ordered Future Order: Lab Order COMPREHE NSIVE METABOLIC PANEL ([id number]), Ordered on: Ordered Future Order: Lab Order HEMOGLOB IN A1C ([id number]), Ordered on: Ordered Future Order: Lab Order LIPID PA BECCA ([id number]), Ordered on: Ordered Future Order: Lab Order THYROID PANEL WITH TSH, 3RD GENERATION ([id number]), Ordered on: Ordered Future Order: Lab Order URINALYS IS, COMPLETE ([id number]), Ordered on: Ordered Future Order: Lab Order C-REACTI VE PROTEIN ([id number]), Ordered on: Ordered Future Order: Lab Order SED RATE BY MODIFIED WESTERGREN (559), Ordered on: Ordered Future Order: Lab Order [...]
--- OUTSIDE RECORDS SUMMARY | 2025-01-23 08:17 | XMS_ITS | Encounter Summary ---
Author Organization [employer] Address [address] 7t [place] [address] Care Team Providers Care China Decorator Name Role Phone Lissy Gracia MD Primary Care Provider [phone] Reinaldo Persaud RN Unavailable [phone] Reason for Visit * Reason Comments Med Refill Encounter Details Date Type Department Care Team ([facility] st Contact Info) Description 11/21/2024 Refill [facility] 230 [place] [address] Candice Moreland DO [address] [place] [address] Social History Tobacco Use Types Packs/Day Years [...] Description 03/14/2025 2:15 PM EDT Office Visit [facility] MEDICINE [address] [place] [address] Lissy Gracia MD [address] [place] [address] documented as of this encounter Visit Diagnoses Not on filedocumented in this encounter Additional Health Concerns Assessment Noted Time PHQ-9 Depression Total Score: 0 02/05/20 24 1:47 PM EDT documented as of this encounter Care Teams China Decorator Relationship Specialty Start Date End Date Lissy Gracia MD [address] [place] [address] PCP - General Family Medicine 06/07/21 Reinaldo Persaud RN [address] [place] [address] Fashion DesignerGear Tooth Grinding Machine Operator 11/05/24 documented as of this encounter
--- OUTSIDE RECORDS SUMMARY | 2025-01-23 08:17 | XMS_ITS | Clinical Summary ---
Author Organization [facility] Address [address] [place] [address] Care Team Providers Care Costumer Assistant Name Role Phone Unavailable Primary Care Provider [...] Colorectal Cancer Screening: Sigmoidoscopy 2022 Influenza Vaccine (Season Ended) 2025 Pneumococcal Vaccine: Peds ( 0 to 5 Years) and At-Risk Patients (6 to 49 Years) Aged Out No longer eligible b ased on patient's age to complete this [place]
--- OUTSIDE RECORDS SUMMARY | 2025-01-23 08:17 | XMS_ITS | Encounter Summary ---
Author Organization [facility] Address [address] 7t [place] [address] Care Team Providers Care Foam Cutting Supervisor Name Role Phone Lissy Gracia MD Primary Care Provider [phone] Reinaldo Persaud RN Unavailable [phone] Reason for Visit * Reason Comments Care Coordination C3 [facility] Ammy bruce telephone call outreach Encounter Details Date Type Department Care Team (Latest Contact Info) Description 01/22/2025 Patient Outreach [facility] MEDICINE 230 [place] [address] Lissy Gracia MD [address] [place] [address] Care [facility]ination [facility] telephone call outreach) [...] encounter Progress Notes * Ammy Ziegler - 01/22/2025 8:46 AM EDT CHW Ammy Ziegler placed outbound call to patient introducing herself from [facility] CM Department, in regard to remind patient of appt for 01/23/25 @ 8:30AM. Patient's name and was confirmed. Patient is aware and confirmed will be available and has no barriers on attending this appointment. Patient verbalized understanding and agreed with plan. documented in this encounter Plan of Treatment Upcoming Encounters Date Type Department Care Team (Late st Contact Info) Description 03/14/2025 2:15 PM EDT Office Visit [facility] MEDICINE [address] [place] [address] Lissy Gracia MD [address] [place] [address] documented as of this encounter Visit Diagnoses Not on filedocumented in this encounter Additional Health Concerns Assessment Noted Time PHQ-9 Depression Total Score: 0 02/05/20 24 1:47 PM EDT documented as of this encounter Care Teams Foam Cutting Supervisor Relationship Specialty Start Date End Date Lissy Gracia MD [address] [place] [address] PCP - General Family Medicine 06/07/21 Reinaldo Persaud, LILIANE [address] [place] [address] Engineering ProgrammerLaw Examiner 11/05/24 documented as of this encounter
--- OUTSIDE RECORDS SUMMARY | 2025-01-23 08:17 | XMS_ITS | Encounter Summary ---
Author Organization [employer] [facility] Address [address] 7t [place] [address] Care Team Providers Care Weatherstrip Machine Operator Name Role Phone Lissy Gracia MD Primary Care Provider [phone] Reinaldo Persaud RN Unavailable [phone] Reason for Visit * Reason Comments Care Coordination C3 [facility] Ammy bruce telephone call outreach Encounter Details Date Type Department Care Team (Latest Contact Info) Description 01/20/2025 Patient Outreach [facility] MEDICINE 230 [place] [address] Lsisy Gracia MD [address] [place] [address] Care Coordination [facility] telephone call outreach) Social History [...] encounter Progress Notes * Ammy Ziegler - 01/20/2025 8:46 AM EDT CHW Ammy Ziegler placed outbound call to patient introducing herself from [facility] CM Department, in regard to remind patient of appt for 01/21/25 @ 2:30PM. Patient's name and was confirmed. Patient is aware and confirmed will be available and has no barriers on attending this appointment. Patient verbalized understanding and agreed with plan. documented in this encounter Plan of Treatment Upcoming Encounters Date Type Department Care Team (Late st Contact Info) Description 03/14/2025 2:15 PM EDT Office Visit [facility] MEDICINE [address] [place] [address] Lissy Gracia MD [address] [place] [address] documented as of this encounter Visit Diagnoses Not on filedocumented in this encounter Additional Health Concerns Assessment Noted Time PHQ-9 Depression Total Score: 0 02/05/20 24 1:47 PM EDT documented as of this encounter Care Teams Weatherstrip Machine Operator Relationship Specialty Start Date End Date Lissy Gracia MD [address] [place] [address] PCP - General Family Medicine 06/07/21 Reinaldo Persaud, LILIANE [address] [place] [address] Interchange AgentMicrosoft Systems Engineer 11/05/24 documented as of this encounter
--- OUTSIDE RECORDS SUMMARY | 2025-01-23 08:17 | XMS_ITS | Encounter Summary ---
Author Organization [employer] Address [address] [facility] [address] 7t [place] [address] Care Team Providers Care Metallurgy Laboratory Technician Name Role Phone Lissy Gracia MD Primary Care Provider [phone] Reinaldo Persaud RN Unavailable [phone] Reason for Visit * Reason Onset Date Comments Care Management 01/21/2025 C3CM- f/u call Encounter Details Date Type Department Care Team ([facility] st Contact Info) Description 01/21/2025 Telephone [facility] MEDICINE [address] [place] [address] Lissy Gracia MD [address] [place] [address] Care Management (C3CM- f/u call) Social History [...] Telephone Encounter - Reinaldo Persaud RN - 01/21/2025 10:38 AM EDT CM Reinaldo Persaud RN placed outbound call to patient. Patient's name, and address confirmed. Patient c/o sore throat, ear pain, and congestion. She states she was seen at in [facility] on Monday. Per patient, was prescribed antibiotics and drops for her eye that she reports taking as prescribed. Patient states she was instructed to return to the clinic for further eval if her symptoms did not improve within 3 days. She states she will continue to monitor and will f/u at prn. Patient states she feels most comfortable going to rather than the walk in center as she has had a negative experience there in the past. Per patient, rescheduled her visits with GI and Cardiology. Noted patient is scheduled to see GI on 01/28, General Surgery on 01/30 and Cardiology on 02/11. Appt reminders have been set. Patient is also requesting PT1 for those upcoming visits. ARIES Gimenez will assistwith setting this up. Patient confirms attending the echo on 01/15 but missed the mammography scheduled on 01/15. She agrees to contact [facility] to reschedule the visit. CM reminded patient that she is scheduled to see BUCKLE GLUER on 01/23. Advised PT1 cannot be set for the visit as there is not enough notice to submit the request. She verbalizes understanding and states she will take public transportation to the visit. She also states that [facility] provides a shuttle which she may consider taking. Patient states herBP and sugars have been well controlled. She states she is taking all of her medications as prescribed and denies any concerns or need for refills at this time. Per patient, has not yet been contacted by LT for enrollment. CM will f/u and will update patient at the next call. No further questions or concerns. CM reinforced direct contact information for any additional questions or concerns. Education provided on Walk-In Urgent Care located in [facility]. Patient provided with after-hours line for [facility], , which offer night time triage service and option to transfer to front services agent provider if needed. Patient verbalizes understanding, and able to r epeat back to travel writer. A follow up call will be placed within 10 days, patient agrees with plan. documented in this encounter Plan of Treatment Upcoming Encounters Date Type Department Care Team (Late st Contact Info) Description 03/14/2025 2:15 PM EDT Office Visit [facility] MEDICINE [address] [place] [address] Lissy Gracia MD [address] [place] [address] documented as of this encounter Visit Diagnoses Not on filedocumented in this encounter Additional Health Concerns Assessment Noted Time PHQ-9 Depression Total Score: 0 02/05/20 24 1:47 PM EDT documented as of this encounter Care Teams Metallurgy Laboratory Technician Relationship Specialty Start Date End Date Lissy Gracia MD [address] [place] [address] PCP - General Family Medicine 06/07/21 Reinaldo Persaud RN [address] [place] [address] [place] [address] Crap ShooterPig Farmer 11/05/24 documented as of this encounter
--- OUTSIDE RECORDS SUMMARY | 2025-01-23 08:17 | XMS_ITS | Encounter Summary ---
Author Organization [employer] [facility] Address [address] 7t [place] [address] Care Team Providers Care Boxing Machine Operator Name Role Phone Lissy Gracia MD Primary Care Provider [phone] Reinaldo Persaud RN Unavailable [phone] Reason for Visit * Reason Comments Care Coordination C3 [facility] Ammy bruce telephone call outreach Encounter Details Date Type Department Care Team (Latest Contact Info) Description 01/21/2025 Patient Outreach [facility] MEDICINE [address] [place] [address] Lissy Gracia MD 230 [place] [address] Care Coordination ([facility] telephone call outreach) [...] encounter Progress Notes * Ammy Ziegler - 01/21/2025 8:25 AM EDT CHW Ammy Ziegler placed outbound call to patient introducing herself from [facility] CM Department, in regard to remind patient of appt for 01/22/2025 @2:00PM. Patient's name and was confirmed. Patient is aware and confirmed will be available and has no barriers on attending this appointment. Patient verbalized understanding and agreed with plan. documented in this encounter Plan of Treatment Upcoming Encounters Date Type Department Care Team (Late st Contact Info) Description 03/14/2025 2:15 PM EDT Office Visit [facility] MEDICINE [address] [place] [address] Lissy Gracia MD [address] [place] [address] documented as of this encounter Visit Diagnoses Not on filedocumented in this encounter Additional Health Concerns Assessment Noted Time PHQ-9 Depression Total Score: 0 02/05/20 24 1:47 PM EDT documented as of this encounter Care Teams Boxing Machine Operator Relationship Specialty Start Date End Date Lissy Gracia MD 230 [facility] [place] [address] PCP - General Family Medicine 06/07/21 Reinaldo Persaud, LILIANE [address] [place] [address] Emergency Room ClinicianSenior Science Consultant 11/05/24 documented as of this encounter
--- NOTE | 2025-01-23 08:23 | MHC.OFFVIS ---
Vital Signs 01/23/25 08:28 Height 5 ft 6 in Weight 175 lb BMI 28.2 BP 120/80 Intake Visit Reasons: Annual/Co test/DO NOT RS X3 Disability Rater Required: Yes Disability Rater Language: Supervisor Food Checkers And Cashiers Services: Disability Rater Present (in person) Disability Rater Name: LEO Ivey Information Interpreted: non-clinical & clinical Nuclear Worker Technician: Nuclear Worker Technician Present (Shantel Lynch MARILYBryn ) Accompanied by: Self / Same As Patient Allergies Seasonal Allergies Allergy (Mild, Verified 01/23/25 08:31) Runny Nose HPI Comments Details: Presenting for annual exam. No complaints. Last Pap/HPV was ascus/HPV positive in 12/09, this was followed by colpo biopsy ECC which showed DEE 1 Last Mammogram was BI-RADS1 in 01/06 No previous screening colonoscopy, the patient is in the process of scheduling an appointment with GI for screening colonoscopy [facility] Medical History Dysplasia of cervix, low grade (DEE 1) Plantar fasciitis Chronic migraine Iron deficiency Depression Hyperlipidemia LDL goal <100 Essential hypertension Type 2 diabetes mellitus with hyperglycemia Surgical History Hx of tubal ligation Family History Father No problems noted. Mother HTN (hypertension) Maternal Grandfather HTN (hypertension) Myocardial infarct Maternal Grandmother Diabetes Breast cancer Maternal Aunt Diabetes Social History Household Members: Children Unable to assess alcohol history related to: Unknown Alcohol intake: former Patient Tobacco Use Status: Never used Tobacco Advance Directives Date on File: 11/23/23 Female Reproductive History Menstrual Age of Menarche: 10 Total pregnancies: 6 Full term: 5 Ab spontaneous: 1 Date of last pap smear: 11/22/23 (+HPV) History of abnormal pap smear: Yes Date of Mammogram: 01/11/24 (BI RAD 1) Review of Systems Const All systems reviewed & are unremarkable except as noted in HPI and below Card Reports as per HPI Resp Reports as per HPI GI Reports as per HPI and Reports no additional complaints Reports as per HPI Physical Exam Vital Signs: Last Vital Signs BP 120/80 01/23/25 08:28 BMI result Body Mass Index 28.2 Const General: cooperative, healthy appearing and comfortable Chest Chest palpation & inspection: normal inspection of the chest and normal palpation of entire chest wall Breast/axilla inspection: normal inspection of the breasts and normal inspection of the axillae Breast/axilla palpation: normal palpation of the breasts, normal palpation of the axillae and no axillary lymphadenopathy Resp Effort & Inspection: normal respiratory effort Auscultation: clear to auscultation bilaterally Percussion: percussion normal Cardio Palpation: normal PMI Rate: regular rate Rhythm: regular rhythm Heart sounds: no murmurs and no rubs Peripheral pulses: Peripheral pulses 2+ throughout GI Inspection: Yes normal to inspection Palpation (GI): Soft to palpation, nontender, no guarding, not rigid and No hepatosplenomegaly present Percussion: Yes normal to percussion Auscultation: normal bowel sounds Rectal Exam - Female: deferred General: Yes bladder normal to palpation External Female Exam: No lesion Speculum Exam - Vagina: normal appearance of the vagina, normal palpation, normal vaginal discharge and not erythematous Speculum Exam - Cervix: normal appearance of the cervix and normal palpation Bimanual exam- vagina & uterus: normal bimanual exam, normal palpation, uterine size normal, bladder normal to palpation, consistency normal and normal palpation Bimanual Exam- Adnexa, other: normal adnexae, no masses and no tenderness Assessment & Plan Assessment & Plan (1) Well woman exam: Comment: DEE 1 in 12/09 Code(s): Z01.419 - Encounter for gynecological examination (general) (routine) without abnormal findings Category: Medical Plan: Co testing done. Counseled the patient about the recommended dietary allowance of 1200 mg of Calcium & 600 IU of vitamin D. Mammogram ordered. The patient is in the process of scheduling with GI an appointment for screening colonoscopy . The patient was instructed to perform monthly self-breast exams and schedule annual exam in a year. All questions answered and the patient verbalized understanding. Orders: Orders MM tomosynthesis screening BI Today Z12.31 - Encounter for screening mammogram for malignant neoplasm of breast Coding Level of Care Code Est Pt Prev Care 40-64y(68256) Diagnoses Well woman exam Z01.419
[2025-01-23 08:28] VITALS: BP 120/80; BMI 28.2
== END 2025-01-23 08:54 | disposition home or self-care (01) ==
LOC: HO.HWS 08:11
PROVIDERS: PCP General Practice; Visit Provider Obstetrics & Gynecology
DX: Z01.419 Encounter for gynecological examination (general) (routine) without abnormal findings (principal)
CPT/HCPCS: 99396; 99459

== ENCOUNTER 2025-01-28 08:28 | Outpatient (AMB) | payer MEDICAID, SELFPAY ==
--- NOTE | 2025-01-28 08:30 | A.OFFVIS_ITS ---
Vital Signs 01/28/25 08:35 Height 5 ft 6 in Weight 177 lb 4.026 oz BMI 28.6 BP 126/78 Blood Pressure Location Rt brachial Position Sitting Pulse 86 Pulse Source Pulse Oximeter Pulse Oximetry (%) 98 Oxygen Delivery Method Room Air Intake Visit Reasons: gerd Intake Note: ESTABLISHED PATIENT for GERD mgmt. SADI 2021. Pt has no showed the last 4 scheduled appts. Chief Complaint; C/O epigastric pain and intermittent reflux despite taking PPI as instructed. Pt also reports having nausea and constipation. Denies any bleeding or vomiting associated with these presentations. Pt also reports seeing pulmonary and cardiology for this pain and denies any pertinent findings. Tool Grinder Operator Required: Yes Tool Grinder Operator Services: Tool Grinder Operator Present Tool Grinder Operator Name: Bran [id number] + [facility] Information Interpreted: clinical only Accompanied by: Self / Same As Patient Allergies Seasonal Allergies Allergy (Mild, Verified 01/28/25 08:31) Runny Nose HPI HPI gerd: Details: LAST VISIT Chronic idiopathic constipation Continue current dose of Senokot. Patient was encouraged to call the office if Senokot will stop working. Patient will be scheduled for colonoscopy. She is aware that she needs to have a bit prep before going for procedure. GERD (gastroesophageal reflux disease) Now the patient moves her bowels better and taking pantoprazole every morning patient is having no acid reflux, no dyspepsia, dysphagia or odynophagia. Patient states that she has been feeling well. Will hold off on getting upper endoscopy. However patient symptoms will return despite avoiding dietary triggers patient should go for upper endoscopy. Screen for colon cancer Denies any history of sleep apnea. Not on any anticoagulation medication. Denies any cardiac or respiratory symptoms. No infectious diseases in the past or present. What to expect before during and after the procedure discussed with patient. The importance of clear liquid diet day before the procedure stressed. I will see patient after the procedure, sooner if patient will have any GI concerning symptoms. Patient is agreeable to this plan and verbalizes understanding of instructions. She was given the opportunity to ask questions all questions answered. ? Thank you for allowing me to participate in her care Plan Medications New bisacodyl (Dulcolax (bisacodyl)) take 2 tabs at noon the day before your colonoscopy 10 mg (2 x 5 mg) PO ONCE 2 tabs 0RF 1 day Z12.11 polyethylene glycol 3350 (Miralax) As directed by gastroenterology department at [facility] 238 grams PO ONCE 238 grams 0RF Z12.11 TODAY'S VISIT: Patient is here today for requested visit. Last seen in 2021. Patient had multiple visits to ED for epigastric pain and chest pain. Has seen pulmonology and Cardiology and currently undergoing some testing. Patient had normal stress test. Patient continues to have epigastric pain postprandially and pain worse at night time. Patient reports the pain is sharp and radiating to her chest. Patient also reports that she is not moving her bowels well. No longer taking senna. Patient denies any shortness of breath or chest pain with activity. Patient was supposed to go for colonoscopy after last visit and somehow was never scheduled. Patient continues to be on Trulicity. Patient states that she has been on Trulicity for 5 years or so. Patient is not on any particular diet. Mainly eating Wolof food with rice and beans. No vegetables or fiber. Patient does not drink enough water. [facility] Medical History Dysplasia of cervix, low grade (DEE 1) Plantar fasciitis Chronic migraine Iron deficiency Depression Hyperlipidemia LDL goal <100 Essential hypertension Type 2 diabetes mellitus with hyperglycemia Surgical History Hx of tubal ligation Family History Father No problems noted. Mother HTN (hypertension) Maternal Grandfather HTN (hypertension) Myocardial infarct Maternal Grandmother Diabetes Breast cancer Maternal Aunt Diabetes Social History Household Members: Children Unable to assess alcohol history related to: Unknown Alcohol intake: former Patient Tobacco Use Status: Never used Tobacco Advance Directives Date on File: 11/23/23 Female Reproductive History Menstrual Age of Menarche: 10 Review of Systems Const Denies weight gain and Denies weight loss ENT Reports no additional complaints, Denies dysphagia and Denies odynophagia Card Reports no additional complaints Resp Reports no additional complaints GI Reports abdominal pain (Epigastric), Denies belching, Denies melena, Denies bloating, Denies change in bowel habits, Reports constipation, Denies dysphagia, Denies excessive flatus, Denies dyspepsia, Reports heartburn, Denies diarrhea, Denies loose stools, Denies nausea, Denies odynophagia and Denies vomiting Musc Reports no additional complaints Neuro Reports no additional complaints Psych Reports no additional complaints Endo Reports no additional complaints Physical Exam Vital Signs: Last Vital Signs Pulse 86 01/28/25 08:35 BP 126/78 01/28/25 08:35 Pulse Ox 98 01/28/25 08:35 Oxygen Delivery Method Room Air 01/28/25 08:35 BMI result Body Mass Index 28.6 Const General: healthy appearing, no acute distress and well developed Nutritional Appearance: well nourished Orientation/consciousness: patient oriented x3 Resp Effort & Inspection: normal respiratory effort, able to speak in complete sentences, no tracheal deviation and symmetric chest movement Auscultation: clear to auscultation bilaterally Cardio Rate: regular rate GI Inspection: Yes normal to inspection and No distended Palpation (GI): Soft to palpation, not firm, nontender and No hepatosplenomegaly present Auscultation: normal bowel sounds General: Yes no CVA tenderness Back/Spine/Pelvis Back: no CVA tenderness Skin General skin exam: elasticity normal, turgor normal and dry skin Neuro General: patient oriented x3 Psych Appearance: grossly normal Mental Status: mental status grossly normal Assessment & Plan Assessment & Plan (1) Chronic idiopathic constipation: Code(s): K59.04 - Chronic idiopathic constipation (2) GERD (gastroesophageal reflux disease): Code(s): K21.9 - Gastro-esophageal reflux disease without esophagitis Qualifiers: Esophagitis presence: esophagitis presence not specified Qualified Code(s): K21.9 - Gastro-esophageal reflux disease without esophagitis (3) Postprandial epigastric pain: Code(s): R10.13 - Epigastric pain (4) Postprandial abdominal bloating: Code(s): R14.0 - Abdominal distension (gaseous) Plan Patient will be sent for upper GI series to evaluate reflux, check for hernias. Will change PPI to Nexium. Patient can start taking sucralfate at bedtime. Avoid dietary triggers and late night snacking. Staying upright for minimum 3 hours after meals discussed with patient. Patient was encouraged to take senna daily. Increase fluid intake and activity to promote better bowel motility. She will be due to go for colonoscopy. She will return in 2-3 months to re- evaluate. She is agreeable to this plan and verbalizes understanding of ins tructions. She was given the opportunity to ask questions and all questions answered. Thank you for allowing me to participate in her care Orders: Orders [place] upper GI w Ba Swallow Today K21.9 - Gastro-esophageal reflux disease without esophagitis Medications: New esomeprazole magnesium (Nexium) 40 mg PO DAILY 30 caps 3RF K21.9 - Gastro- esophageal reflux disease without esophagitis sucralfate 1 g PO BEDTIME 30 tabs 4RF R19.7 - Diarrhea, unspecified Refilled sennosides (Natural Senna Laxative) 17.2 mg (2 x 8.6 mg) PO BEDTIME 180 tabs 1RF constipation K59.00 - Constipation, unspecified Discontinued metoclopramide HCl (Reglan) Discontinued Reason: Patient no longer taking 10 mg PO Q6H PRN 14 tabs 0RF nausea and vomiting pantoprazole take one tablet half an hour before breakfast Discontinued Reason: Doctor's Order 40 mg PO DAILY 90 tabs 2RF K21.9 - Gastro-esophageal reflux disease without esophagitis famotidine Discontinued Reason: Doctor's Order 40 mg PO BEDTIME 90 tabs 3RF K21.9 - Gastro-esophageal reflux disease without esophagitis Coding Level of Care Code Est Pt Level 4 (76252) Complex EM visit Add On G2211 Diagnoses Chronic idiopathic constipation K59.04 Gastroesophageal reflux disease, unspecified whether esophagitis present K21.9 Esophagitis presence: esophagitis presence not specified Postprandial epigastric pain R10.13 Postprandial abdominal bloating R14.0 Time Spent (min) 40 Comment 25 minutes spent with patient and additional 15 minutes spent reviewing her records
[2025-01-28 08:35] VITALS: BP 126/78; PULSE 86; O2SAT 98; BMI 28.6
--- OUTSIDE RECORDS SUMMARY | 2025-01-28 08:42 | XMS_ITS | Encounter Summary ---
Author Organization [employer] Address [address] 7t [place] [address] Care Team Providers Care Or Manager Name Role Phone Lissy Gracia MD Primary Care Provider [phone] Reinaldo Persaud RN Unavailable [phone] Reason for Visit * Reason Onset Date Comments Nurse Triage 05/22/2023 Encounter Details Date Type Department Care Team ([facility] st Contact Info) Description 05/22/2023 Telephone [facility] MEDICINE [address] [place] [address] Lissy Gracia MD [address] [place], [place] [phone] Nurse Triage Social History Tobacco Use Types [...] to report body pain . Patient speaks Indonesian. Advised triage nurse will call patient back. documented in this encounter Plan of Treatment Upcoming Encounters Date Type Department Care Team (Late st Contact Info) Description 03/14/2025 2:15 PM EDT Office Visit [facility] [address] [place] [address] Lissy Gracia MD [address] [place] [address] documented as of this encounter Visit Diagnoses Not on filedocumented in this encounter Care Teams Or Manager Relationship Specialty Start Date End Date Lissy Gracia MD [address] [place] [address] PCP - General Family Medicine 06/07/21 eRinaldo Persaud RN [address] [place] [address] Mild Disabilities TeacherPower Generation Turbine Room Operator 11/05/24 documented as of this encounter
--- OUTSIDE RECORDS SUMMARY | 2025-01-28 08:42 | XMS_ITS | Encounter Summary ---
Author Organization [employer] [facility] Address [address] 7t [place] [address] Care Team Providers Care Tugboat Mate Name Role Phone Lissy Gracia MD Primary Care Provider Reinaldo Persaud RN Unavailable [phone] Reason for Visit * Reason Comments Med Refill Encounter Details Date Type Department Care Team (Late st Contact Info) Description 05/12/2023 Refill [facility] MEDICINE [address] [place] [address] [phone] Lissy Gracia MD [address] [place] [address] [phone] Social History Tobacco Use Types Packs/Day Years [...] Description 03/14/2025 2:15 PM EDT Office Visit [facility] MEDICINE [address] [place] [address] [phone] Lissy Gracia MD [address] [place] [address] [phone] documented as of this encounter Visit Diagnoses Not on filedocumented in this encounter Care Teams Tugboat Mate Relationship Specialty Start Date End Date Lissy Gracia MD [address] [place] [address] PCP - General Family Medicine 06/07/21 Reinaldo Persaud RN [address] [place] [address] Literacy SpecialistAccounts Payable Bookkeeper 11/05/24 documented as of this encounter
--- OUTSIDE RECORDS SUMMARY | 2025-01-28 08:42 | XMS_ITS | Encounter Summary ---
Author Organization [employer] Address [address] [place] [address] 7t [place] [address] Care Team Providers Care Floorperson Name Role Phone Lissy Gracia MD Primary Care Provider [phone] Reinaldo Persaud RN Unavailable [phone] Reason for Visit * Reason Comments Med Refill Encounter Details Date Type Department Care Team (Late st Contact Info) Description 06/13/2023 Refill [facility] [address] [place] [address] [phone] Chari Murray FNP [address] [place] [address] Dept [place] [address] Mild persistent asthma without complication Social History [...] Description 03/14/2025 2:15 PM EDT Office Visit [facility] [address] [place], [place] [phone] Lissy Gracia MD 230 [place] [address] documented as of this encounter Visit Diagnoses Diagnosis Mild persistent asthma without complication documented in this encounter Additional Health Concerns Assessment Noted Time PHQ-9 Depression Total Score: 0 06/09/20 23 3:37 PM EDT documented as of this encounter Care Teams Floorperson Relationship Specialty Start Date End Date Lissy Gracia MD 230 [place] [address] PCP - General Family Medicine 06/07/21 Reinaldo Persaud RN 505 [place] [address] Moss BleacherFirst Cook 11/05/24 documented as of this encounter
--- OUTSIDE RECORDS SUMMARY | 2025-01-28 08:43 | XMS_ITS | Encounter Summary ---
Author Organization [employer] Address [address] 7t [place] [address] Care Team Providers Care Disability Coordinator Name Role Phone Lissy Gracia MD Primary Care Provider [phone] Reinaldo Persaud RN Unavailable [phone] Reason for Visit * Reason Comments Med Refill Encounter Details Date Type Department Care Team ([facility] st Contact Info) Description 08/19/2024 Refill [facility] 230 [place] [address] Adriana Ramesh MD 230 [place], [place] [phone] Type 2 diabetes mellitus with hyperglycemia, without long-term current use of insulin ([facility]) Social History Tobacco Use Types Packs/Day Years [...] 2:15 PM EDT Office Visit [facility] [address] [place] [address] Lissy Gracia MD [address] [place] [address] documented as of this encounter Visit Diagnoses Diagnosis Type 2 diabetes mellitus with hyperglycemia, without long-term current use of insulin ([facility]) documented in this encounter Additional Health Concerns Assessment Noted Time PHQ-9 Depression Total Score: 0 02/05/20 24 1:47 PM EDT documented as of this encounter Care Teams Disability Coordinator Relationship Specialty Start Date End Date Lissy Gracia MD [address] [place] [address] PCP - General Family Medicine 06/07/21 Reinaldo Persaud RN [address] [place] [address] Whittling Room OperatorWastewater Treatment Operator 11/05/24 documented as of this encounter
--- OUTSIDE RECORDS SUMMARY | 2025-01-28 08:43 | XMS_ITS | Encounter Summary ---
Author Organization [employer] Address [address] 7t [place] [address] Care Team Providers Care Upholsterer Outside Name Role Phone Lissy Gracia MD Primary Care Provider [phone] Reinaldo Persaud RN Unavailable [phone] Reason for Visit * Reason Onset Date Comments Med Refill 06/20/2024 Encounter Details Date Type Department Care Team ([facility] st Contact Info) Description 06/20/2024 Telephone [facility] 230 [place] [address] Lissy Gracia MD 230 [place] [address] Med Refill Social History Tobacco Use Types [...] sent to: [facility] [place], [place] - [address] [facility] documented in this encounter Plan of Treatment Upcoming Encounters Date Type Department Care Team (Late st Contact Info) Description 03/14/2025 2:15 PM EDT Office Visit [facility] 230 [place] [address] Lissy Gracia MD 230 [place] [address] documented as of this encounter Visit Diagnoses Not on filedocumented in this encounter Additional Health Concerns Assessment Noted Time PHQ-9 Depression Total Score: 0 02/05/20 24 1:47 PM EDT documented as of this encounter Care Teams Upholsterer Outside Relationship Specialty Start Date End Date Lissy Gracia MD 230 [place] [address] PCP - General Family Medicine 06/07/21 Reinaldo Persaud RN [address] [place] [address] Macerator OperatorCsr Retail 11/05/24 documented as of this encounter
--- OUTSIDE RECORDS SUMMARY | 2025-01-28 08:43 | XMS_ITS | Clinical Summary ---
Author Organization [facility] ity Address [address] [place] [address] Care Team Providers Care Pipe Cleaning Machine Operator Name Role Phone Unavailable Primary [...]
--- OUTSIDE RECORDS SUMMARY | 2025-01-28 08:43 | XMS_ITS | Encounter Summary ---
Author Organization [employer] Address [address] 7t [place] [address] Care Team Providers Care Manager Of Learning Name Role Phone Lissy Gracia MD Primary Care Provider [phone] Reinaldo Persaud RN Unavailable [phone] Reason for Referral * Consultation (STAT) - Closed Specialty Diagnoses / Procedures Referred By Contac t Referred To Contact Pulmonary Disease Diagnoses Mild persistent asthma without complication Lissy Gracia MD [address] [place] [address] Phone: tel: fax: [facility] Pulmonary [address] 1st Floor [place], [place] Phone: tel: fax: Referral ID Status Reason Start Date Expiration Date V isits Requested Visits Authorized [id number] Closed Specialty Services Required 09/02/2024 09/02/2025 6 6 Encounter Details Date Type Department Care Team (Late st Contact Info) Description 09/02/2024 Orders Only [facility] [address] [place] [address] Lissy Gracia MD [address] [place] [address] [phone] Mild persistent asthma without complication (Primary Dx) [...] EDT Office Visit [facility] 230 [place], [place] [phone] Lissy Gracia MD 230 [place] [address] Scheduled Referrals Name Type Priority Associated Diagnoses [...] as of this encounter Care Teams Manager Of Learning Relationship Specialty Start Date End Date Lissy Gracia MD 230 [place] [address] PCP - General Family Medicine 06/07/21 Reinaldo Persaud, LILIANE 505 [place] [address] Standards AnalystCombiner Operator 11/05/24 documented as of this encounter
--- OUTSIDE RECORDS SUMMARY | 2025-01-28 08:43 | XMS_ITS | Encounter Summary ---
Author Organization [employer] [facility] Address [address] [facility] 7t [place] [address] Care Team Providers Care Gray Mixing Operator Name Role Phone Lissy Gracia MD Primary Care Provider [phone] Reinaldo Persaud RN Unavailable [phone] Reason for Visit * Reason Comments Med Refill Encounter Details Date Type Department Care Team (Late st Contact Info) Description 12/25/2022 Refill [facility] [address] [place] [address] Adriana Ramesh MD [address] [place] [address] [phone] Social History Tobacco Use Types Packs/Day Years [...] Description 03/14/2025 2:15 PM EDT Office Visit [facility] [address] [place] [address] Lissy Gracia MD [address] [place] [address] documented as of this encounter Visit Diagnoses Not on filedocumented in this encounter Care Teams Gray Mixing Operator Relationship Specialty Start Date End Date Lissy Gracia MD 230 [place] [address] PCP - General Family Medicine 06/07/21 Reinaldo Persaud RN [address] [place] [address] Power House Control Room OperatorAoc Airspace Control Officer 11/05/24 documented as of this encounter
--- OUTSIDE RECORDS SUMMARY | 2025-01-28 08:43 | XMS_ITS | Encounter Summary ---
Author Organization [employer] [facility] Address [address] [facility] 7t [place] [address] Care Team Providers Care Recycling Worker Name Role Phone Lissy Gracia MD Primary Care Provider [phone] Reinaldo Persaud RN Unavailable [phone] Reason for Visit * Reason Comments Med Refill Encounter Details Date Type Department Care Team (Late st Contact Info) Description 12/26/2022 Refill [facility] [address] [place] [address] Adriana Ramesh MD [address] [place] [address] [phone] Primary hypertension Social History Tobacco Use Types [...] Description 03/14/2025 2:15 PM EDT Office Visit [facility] [address] [place] [address] Lissy Gracia MD [address] [place] [address] documented as of this encounter Visit Diagnoses Diagnosis Primary hypertension Unspecified essential hypertension documented in this encounter Care Teams Recycling Worker Relationship Specialty Start Date End Date Lissy Gracia MD [address] [place] [address] PCP - General Family Medicine 06/07/21 Reinaldo Persaud RN 505 [place] [address] Guzzler BuilderWater Analyst 11/05/24 documented as of this encounter
--- OUTSIDE RECORDS SUMMARY | 2025-01-28 08:43 | XMS_ITS | Continuity of Care Document ---
Author Organization [facility] Address [address] [place] [address] Phone Care Team Providers Care Combustion Analyst Name Role Phone Madatovian, DO DO, [...] Test strips apply 1 not specified by [facility].(non-drug; combo) route 3 times every day 1 [...] Date Provider Providers Copied on Encounter [facility], [address], [place], [place], [id number], [place] tel:[phone] [place] No Information 1 Madatovian, DO [place]. [address], [place], [address]. tel:[phone] [facility], [address], [place], [place], [id number], [place] tel:[phone] [place] No Information Dec-0 - 0 Madatovian, DO [place]. [address] [facility] [address], [place], [address]. tel:[phone] OV 15 MIN M/F [facility], [address], [place], [place], [id number], [place] tel:[phone] [place] Lab results (chief complaint) Insulin dependent diabetes mellitusLong term (current) use of insulinHyperlip idemia, unspecified hyperlipidemia type Madatovian, DO [place]. [address], [address]. tel:[phone] [facility], [address], [place], [id number], [place] tel:[phone] [place] Blood work only (chief complaint) No Information No Information OV 20 MIN M/F [facility], [address], [place], [place], [id number], [place] tel:[phone] [place] blood test (chief complaint) weight loss (chief complaint) Encntr for general adult medical exam w/o abnormal findingsWeight lossHistory of uterine fibroid Madatovian, DO [place]. [address] [facility] [address], [place], [address]. tel:[phone] Family History Family Member Type Diagnosis Age At Onset No Information Payers Payer name Insurance type Covered republican ID Authoriza tion(s) No Information Social History Type Description Quantity Date Captured Comments Sex Female Smoking Status No Information Chief Complaint And Reason For Visit No Information Reason For Referral Reason For Referral No Information Plan Of Treatment Date Type Action Status Goal Dilated eye exam. Due on May due Goal Urine microalbumin. Due on A due Goal Pneumococcal vaccine. Due on due Goal Influenza vaccine. Due on due Goal Dental exam. Due on due Goal GFR. Due on due Goal Lipid panel. Due on due Goal Foot exam. Due on due Goal Hemoglobin A1C. Due on due Goal Complete Physica l Exam. Due on due Goal Pap/HPV testing. Due on due Goal Tdap. Due on due Goal Depression screening. Due [...] Order: Lab Order CBC (INC LUDES DIFF/PLT) ([id number]), Ordered on: Ordered Future Order: Lab Order COMPREHE NSIVE METABOLIC PANEL ([id number]), Ordered on: Ordered Future Order: Lab Order HEMOGLOB IN A1C (496), Ordered on: Ordered Future Order: Lab Order LIPID PA BECCA ([id number]), Ordered on: Ordered Future Order: Lab Order THYROID PANEL WITH TSH, 3RD GENERATION ([id number]), Ordered on: Ordered Future Order: Lab Order URINALYS IS, COMPLETE ([id number]), Ordered on: Ordered Future Order: Lab Order C-REACTI VE PROTEIN ([id number]), Ordered on: Ordered Future Order: Lab Order SED RATE BY MODIFIED WESTERGREN (129), Ordered on: Ordered Future Order: Lab Order [...]
--- OUTSIDE RECORDS SUMMARY | 2025-01-28 08:43 | XMS_ITS | Encounter Summary ---
Author Organization [employer] Address [address] 7t [place] [address] Care Team Providers Care Identification Printing Machine Setter Name Role Phone Lissy Gracia MD Primary Care Provider [phone] Reinaldo Persaud RN Unavailable [phone] Reason for Visit * Reason Comments Med Refill Encounter Details Date Type Department Care Team ([facility] st Contact Info) Description 11/21/2024 Refill [facility] 230 [place] [address] Candice Moreland DO [address] [place] [address] Social History Tobacco Use Types Packs/Day Years [...] 2:15 PM EDT Office Visit [facility] [address] [place] [address] Lissy Gracia MD [address] [place] [address] documented as of this encounter Visit Diagnoses Not on filedocumented in this encounter Additional Health Concerns Assessment Noted Time PHQ-9 Depression Total Score: 0 02/05/20 24 1:47 PM EDT documented as of this encounter Care Teams Identification Printing Machine Setter Relationship Specialty Start Date End Date Lissy Gracia MD [address] [place] [address] PCP - General Family Medicine 06/07/21 Reinaldo Persaud RN [address] [place] [address] Direct Customer Service RepresentativeValidation Intern 11/05/24 documented as of this encounter
--- OUTSIDE RECORDS SUMMARY | 2025-01-28 08:43 | XMS_ITS | Encounter Summary ---
Author Organization [employer] [facility] Address [address] 7t [place] [address] Care Team Providers Care Schedule Announcer Name Role Phone Lissy Gracia MD Primary Care Provider [phone] Reinaldo Persaud RN Unavailable [phone] Reason for Visit * Reason Comments Care Coordination C3 [facility] Ammy bruce telephone call outreach Encounter Details Date Type Department Care Team (Latest Contact Info) Description 01/27/2025 Patient Outreach [facility] [address] [place] [address] Lissy Gracia MD 230 [place] [address] Care Coordination [facility] telephone call outreach) Social History [...] encounter Progress Notes * Ammy Ziegler - 01/27/2025 11:21 AM EDT CHW Ammy Ziegler placed outbound call to patient introducing herself from [facility] CM Department, in regard to remind patient of appt for 01/28/25@ 8:30AM. Patient's name and was confirmed. Patient is aware and confirmed will be available and has no barriers on attending this appointment. Patient verbalized understanding and agreed with plan. documented in this encounter Plan of Treatment Upcoming Encounters Date Type Department Care Team (Late st Contact Info) Description 03/14/2025 2:15 PM EDT Office Visit [facility] [address] [place] [address] Lissy Gracia MD 230 [place] [address] documented as of this encounter Visit Diagnoses Not on filedocumented in this encounter Additional Health Concerns Assessment Noted Time PHQ-9 Depression Total Score: 0 02/05/20 24 1:47 PM EDT documented as of this encounter Care Teams Schedule Announcer Relationship Specialty Start Date End Date Lissy Gracia MD 230 [place] [address] PCP - General Family Medicine 06/07/21 Reinaldo Persaud, LILIANE [address] [place] [address] Time Clock RepairerManager 11/05/24 documented as of this encounter
--- OUTSIDE RECORDS SUMMARY | 2025-01-28 08:43 | XMS_ITS | Encounter Summary ---
Author Organization [employer] Address [address] 7t [place] [address] Care Team Providers Care Sawmill Moulder Operator Name Role Phone Lissy Gracia MD Primary Care Provider [phone] Reinaldo Persaud RN Unavailable [phone] Reason for Visit * Reason Onset Date Comments Appointment Request 10/17/2023 Encounter Details Date Type Department Care Team ([facility] st Contact Info) Description 10/17/2023 Telephone [facility] 230 [place], [place] [phone] Lissy Gracia MD 230 [place], [place] [phone] Appointment Request Social History Tobacco Use Types [...] follow up . Please contact pt @ [phone] Bahamian Speaker documented in this encounter Plan of Treatment Upcoming Encounters Date Type Department Care Team (Late st Contact Info) Description 03/14/2025 2:15 PM EDT Office Visit [facility] [address] [place] [address] Lissy Gracia MD 230 [place] [address] documented as of this encounter Visit Diagnoses Not on filedocumented in this encounter Additional Health Concerns Assessment Noted Time PHQ-9 Depression Total Score: 0 06/09/20 23 3:37 PM EDT documented as of this encounter Care Teams Sawmill Moulder Operator Relationship Specialty Start Date End Date Lissy Gracia MD 230 [place] [address] PCP - General Family Medicine 06/07/21 Reinaldo Persaud RN [address] [place] [address] Compliance TesterFlamer Sealer 11/05/24 documented as of this encounter
--- OUTSIDE RECORDS SUMMARY | 2025-01-28 08:43 | XMS_ITS | Encounter Summary ---
Author Organization [employer] Address [address] 7t [place] [address] Care Team Providers Care Ring Maker Name Role Phone Lissy Gracia MD Primary Care Provider [phone] Reinaldo Persaud RN Unavailable [phone] Reason for Visit * Reason Comments Med Refill Encounter Details Date Type Department Care Team ([facility] st Contact Info) Description 12/20/2023 Refill [facility] [address] [place], [place] [phone] Lissy Gracia MD 230 [place], [place] [phone] Chronic bilateral low back pain, unspecified whether [...] 2:15 PM EDT Office Visit [facility] 230 [place] [address] Lissy Gracia MD [address] [place] [address] documented as of this encounter Visit Diagnoses Diagnosis Chronic bilateral low back pain, unspecified whether sciatica present documented in this encounter Additional Health Concerns Assessment Noted Time PHQ-9 Depression Total Score: 0 06/09/20 23 3:37 PM EDT documented as of this encounter Care Teams Ring Maker Relationship Specialty Start Date End Date Lissy Gracia MD 230 [place] [address] PCP - General Family Medicine 06/07/21 Reinaldo Persaud RN [address] [place] [address] Engineer Remote Control DieselSupervisor Blueprinting And Photocopy 11/05/24 documented as of this encounter
--- OUTSIDE RECORDS SUMMARY | 2025-01-28 08:43 | XMS_ITS | Clinical Summary ---
Author Organization [facility] Address [address] [place] [address] Care Team Providers Care Mixed Crop Farmer Name Role Phone Unavailable Primary Care Provider [...] (1 of 3 - 19+ 3-dose series) 12/11 Colorectal Cancer Screening: Annual FOBT 2022 Colorectal Cancer Screening: Colonoscopy 2022 Colorectal Cancer Screening: Sigmoidoscopy 2022 Pneumococcal Vaccine: 50+ Years (1 of 1 - PCV) 024 Influenza Vaccine (Season Ended) 2025 [place]
--- OUTSIDE RECORDS SUMMARY | 2025-01-28 08:43 | XMS_ITS | Encounter Summary ---
Author Organization [employer] [facility] Address [address] 7t [place] [address] Care Team Providers Care Microgrinder Operator Name Role Phone Lissy Gracia MD Primary Care Provider [phone] Reinaldo Persaud RN Unavailable [phone] Encounter Details Date Type Department Care Team (Latest Contact Info) Description 04/10/2019 Abstract [facility] Dental, Provider, DDS Social [...] Description 03/14/2025 2:15 PM EDT Office Visit [facility] 230 [place] [address] Lissy Gracia MD 230 [place] [address] documented as of this encounter Visit Diagnoses Not on filedocumented in this encounter Care Teams Microgrinder Operator Relationship Specialty Start Date End Date Lissy Gracia MD 230 [place] [address] PCP - General Family Medicine 06/07/21 Reinaldo Persaud, LILIANE [address] [place] [address] Insurance Operations RepReal Estate Rental Agent 11/05/24 documented as of this encounter
--- OUTSIDE RECORDS SUMMARY | 2025-01-28 08:43 | XMS_ITS | Clinical Summary ---
Author Organization [employer] Address [address] [place] [address] Care Team Providers Care Track Fitter Name Role Phone Lissy Gracia MD Primary Care Provider [phone] Reinaldo Persaud RN Unavailable [phone] Allergies No known active allergies Medications docusate sodium (Colace) 100 MG capsule Take 100 mg by mouth at bedtime. 022 Active famotidine (Pepcid) 40 MG tablet Take 40 mg by mouth at bedtime. 022 Active Blood Glucose Monitoring Suppl (PM PediatricsStyle Lite) w/Device kitIndications:Ty pe 2 diabetes mellitus with hyperglycemia, without long-term current use of insulin ([facility]) 1 kit 2 times daily. To monitor [...] hyperglycemia, without long-term current use of insulin ([facility]) 1 each by Other route 2 times [...] FOR 12 HOURS DIRECTED 60 patch 6 025 Active Dulaglutide (Trulicity) 3 MG/0.5ML solution auto-injector Inject 3 mg under the skin 1 (one) time per week. 2 mL 3 Active metFORMIN (Glucophage) 500 MG tablet Take 2 tablets (1,000 mg) by mouth with breakfast and with evening meal. 360 tablet 3 Active Invokana 300 MG TAKE 1 TABLET BY MOUTH EVERY MORNING BEFORE BREAKFAST 90 tablet 3 024 2024 Discontinued(C ost of medication) Dulaglutide 1.5 MG/0.5ML solution auto-injectorIndi cations:Type 2 diabetes mellitus with hyperglycemia, without long-term current use of insulin ([facility]) Inject 0.5 mL (1.5 mg) as directed 1 (one) time per week. 2 mL 11 024 2024 Discontinued(D ose adjustment) magnesium oxide (Mag-Ox) 400 MG tablet Take 1 tablet by mouth at bedtime. 024 2024 Discontinued(T herapy completed) metFORMIN (Glucophage) 500 MG tablet TAKE 2 TABLETS BY MOUTH TWICE DAILY IN THE MORNING AND EVENING WITH MEALS 360 tablet 3 2024 Discontinued(R eorder (will not trigger notification to Pharmacy)) triamcinolone (Kenalog) 0.1 % creamIndications: Acute eczematoid otitis externa of both ears Apply topically if needed in the morning and at bedtime for irritation (ear) for up to 10 days. 30 g 025 2024 clotrimazole (Lotrimin) 1 % creamIndications: Acute eczematoid otitis externa of both ears Apply topically at bedtime for 10 days. To ears 30 g 2024 Active Problems Problem Noted Date Diagnosed [...] 300mg daily Maintenance: Eye Exam: [facility] at [facility] 04/2022, next 04/2024 Diabetic foot [...] 300mg daily Maintenance: Eye Exam: [facility] at [facility] 04/2022, next 04/2024 Diabetic foot [...] for f/u Maintenance: Eye Exam: [facility] at [facility] 04/2022 Diabetic foot exam: 06/2022, [...] for f/u Maintenance: Eye Exam: [facility] at [facility] 04/2022 Diabetic foot exam: 06/2022, [...] for f/u Maintenance: Eye Exam: [facility] at [facility] 04/2022 Diabetic foot exam: 06/2022, [...] for f/u Maintenance: Eye Exam: [facility] at [facility] 04/2022 Diabetic foot exam: 06/2022, [...] for f/u Maintenance: Eye Exam: [facility] at [facility] 04/2022 Diabetic foot exam: 06/2022, [...] Encounters Date Type Department Care Team Description 01/27/2025 Patient Outreach [facility] MEDICINE [address] [place] [phone] Lissy Gracia MD Care Coordination (C3 CM-[facility] A[facility]y [facility]ler telephone call outreach) 01/22/2025 Telephone [facility] MEDICINE [address] [place], [place] [phone] Lissy Gracia MD [facility] 01/22/2025 Patient Outreach [address] [address] Lissy Gracia MD Care Coordination (C3 [facility]iegler telephone call outreach) 01/21/[address] [address] Lissy Gracia MD Care Management (C3CM- f/u call) 01/21/2025 Patient Outreach [address] [address] Lissy Gracia MD Care Coordination (C3 CM-[facility] Ziegler telephone call outreach) 01/20/2025 Patient Outreach [address] [address] Lissy Gracia MD Care Coordination (C3 CM-[facility] telephone call outreach) 01/14/2025 1:15 PM EDT Office Visit [address] [address] Lissy Gracia MD Chronic migraine without aura without status migrainosus, not intractable (Primary Dx); Acute eczematoid otitis externa of both ears; Fibromyalgia 01/14/2025 Patient Outreach [address] [address] Lissy Gracia MD Care Coordination (C3 CM-[facility] telephone call outreach /) 01/14/2025 Travel 01/09/2025 10:30 AM EDT Office Visit [address] [address] Irene Singletary MD Chronic migraine without aura without status migrainosus, not intractable (Primary Dx); Anxiety 01/09/2025 Travel 01/08/[address] [address] Lissy Gracia MD Care Management (C3CM- f/u call) 01/07/2025 1:15 PM EDT Office Visit [address] [address] Lissy Gracia MD Fibromyalgia (Primary Dx); Type 2 diabetes mellitus with hyperglycemia, without long-term current use of insulin ([facility]) 01/07/2025 Travel 01/06/2025 9:15 AM EDT Office Visit [address] [place] [address] Irene Singletary MD Chronic migraine without aura without status migrainosus, not intractable (Primary Dx); Anxiety 01/06/2025 Patient Outreach [address] [address] Lissy Gracia MD Care Coordination (C3 CM-[facility] [employer] telephone call outreach) 01/06/2025 Patient Outreach [address] [address] Lissy Gracia MD Care Coordination (C3 CM-[facility] [employer] telephone call outreach) 01/06/2025 Travel 01/02/2025 Patient Outreach [address] [address] Lissy Gracia MD Care Coordination (C3 CM-[facility] [employer] telephone call outreach) 01/01/[address] [address] Lissy Gracia MD [facility] 12/31/2024 1:15 PM EDT Office Visit [address] [address] Lissy Gracia MD Fibromyalgia (Primary Dx); Chronic migraine without aura without status migrainosus, not intractable 12/31/2024 Travel 12/30/2024 11:00 AM EDT Office Visit [address] [address] Lissy Gracia MD Fibromyalgia (Primary Dx); Dietary counseling; Exercise counseling; Overweight; Daytime somnolence 12/30/2024 9:45 AM EDT Office Visit [address] [address] Ireen Singletary MD Chronic migraine without aura without status migrainosus, not intractable (Primary Dx); Anxiety 12/30/2024 Telephone [facility] [place] [address] Lissy Gracia MD Prior Authorization ( ANJALI Request: Fredrick) 12/30/2024 Travel 12/27/2024 Telephone [facility] [place] [address] Lissy Gracia MD Schedule pain groupm(MONDAYS) 12/27/2024 Population Health Risk Score [facility] (C3) Department [address] [place] [address] [phone] Provider, Population Health Generic 12/26/2024 Refill [facility] [place] [address] Lissy Gracia MD Cervical radiculopathy 12/24/2024 Telephone [facility] [place] [address] Lissy Gracia MD Care Management ([facility]- f/u call lv) 12/23/2024 9:00 AM EDT Office Visit [facility] [place] [address] Irene Singletary MD Chronic migraine without aura without status migrainosus, not intractable (Primary Dx); Anxiety 12/23/2024 Travel 12/20/2024 Patient Outreach [facility] [place] [address] Lissy Gracia MD Care Coordination ([address] Ammy Ziegler telephone call outreach) 12/20/2024 Refill [facility] [address] Lissy Gracia MD Cervical radiculopathy 12/19/2024 10:15 AM EST Office Visit [facility] [place] [address] Irene Singletary MD Chronic migraine without aura without status migrainosus, not intractable (Primary Dx); Anxiety 12/19/2024 Travel 12/17/2024 1:15 PM EST Office Visit [facility] [place] [address] Lissy Gracia MD Fibromyalgia (Primary Dx) 12/17/2024 Travel 12/16/2024 Telephone [facility] MEDICINE [address] [place] [address] Lissy Gracia MD No Show 12/16/2024 Patient Outreach [address] [address] Lissy Gracia MD Care Coordination ([facility] telephone call outreach) 12/12/2024 Patient Outreach [address] [address] Lissy Gracia MD Care Coordination (C3 CM[facility] telephone call outreach) 12/12/[address] [address] Lissy Gracia MD Care Management (C3CM- f/u call) 12/10/2024 1:15 PM EST Office Visit [address] [address] Lissy Gracia MD Fibromyalgia (Primary Dx); Chronic migraine without aura without status migrainosus, not intractable 12/10/2024 Travel 12/10/2024 Patient Outreach [address] [address] Lissy Gracia MD Care Coordination ([facility] telephone call outreach) 12/09/[address] [address] Lissy Gracia MD Allergic rhinitis, unspecified seasonality, unspecified trigger 12/06/2024 Patient Outreach [address] [address] Lissy Gracia MD Care Coordination ([facility]3 [facility] telephone call outreach) 12/05/2024 9:30 AM EST Office Visit [address] [address] Irene Singletary MD Chronic migraine without aura without status migrainosus, not intractable (Primary Dx); Anxiety 12/05/2024 Outside Procedure [facility] OPTOMETRY [address] [place] [phone] Betty Olivares, OD Presbyopia (Primary Dx) 12/05/2024 Refill [facility] WALK-IN CENTER [address] [place] [address] Roscoe Alfaro MD 12/05/2024 Travel 12/04/2024 9:15 AM EST Office Visit [facility] OPTOMETRY [address] [place] [address] Betty Olivares, OD Hyperopia of both eyes (Primary Dx) 12/04/2024 Patient Outreach [address] [address] Lissy Gracia MD Care Coordination (C3 -[facility] telephone call outreach) 12/04/2024 Patient Outreach [address] [address] Lissy Gracia MD Pre-visit Planning (SDOH screening positive and tobacco screening negative) 12/04/2024 Travel 12/03/2024 9:45 AM EST Office Visit [address] [address] Irene Singletary MD Chronic migraine without aura without status migrainosus, not intractable (Primary Dx); Anxiety 12/03/[address] [address] Lissy Graica MD Appointment Request 12/03/2024 Travel 11/29/[address] [phone] Lissy Grcaia MD 11/29/[address] [phone] Lissy Gracia MD Care Management (C3- f/u call) 11/28/2024 9:00 AM EST Office Visit [facility] ADULT DENTAL [address] [place] [address] Wendi Pedroza Dental calculus (Primary Dx); Dental plaque; Subgingival dental calculus 11/28/[address] [address] Lisys Gracia MD Chronic bilateral low back pain, unspecified whether sciatica present 11/27/2024 Patient Outreach [facility] MEDICINE [address] [place] [address] Lissy Gracia MD Care Coordination (C3 CM-[facility] Ammy Ziegler telephone call outreach) 11/26/2024 1:15 PM EST Office Visit [address] [address] Lissy Gracia MD Fibromyalgia (Primary Dx); Chronic migraine without aura without status migrainosus, not intractable 11/26/2024 Telephone [facility] MEDICINE [address] [place] [address] Susana Casillas [place] Pain group 11/26/2024 Patient Outreach [address] [address] Lissy Gracia MD Care Coordination (C3 CM-[facility] telephone call outreach/) 11/26/2024 Travel 11/26/2024 Patient Outreach [address] [address] Lissy Gracia MD Care Coordination (C3 CM-[facility] Ammy Ziegler telephone call outreach) 11/25/2024 Patient Outreach [address] [address] Lissy Gracia MD Care Coordination (C3 CM-W Amym [facility] telephone call outreach) 11/21/2024 Refill [facility] WALK-IN CENTER [address] [place] [address] Candice Moreland DO 11/19/2024 1:15 PM EST Office Visit [address] [address] Lissy Gracia MD Fibromyalgia (Primary Dx); Chronic migraine without aura without status migrainosus, not intractable 11/19/2024 8:00 AM EST Office Visit [facility] ADULT DENTAL [address] [place] [phone] Ciro Rockwell, PENNIE Retained dental root (Primary Dx) 11/19/2024 Travel 11/19/2024 Refill [facility] MEDICINE [address] [place] [address] Lissy Gracia MD 11/19/2024 Patient Outreach [address] [address] Lissy Gracia MD Transition Of Care (Tcm) 11/18/2024 9:00 AM EST Office Visit [address] [address] Irene Singletary MD Chronic migraine without aura without status migrainosus, not intractable (Primary Dx); Anxiety 11/18/[address] [address] Lissy Gracia MD Lab Orders 11/18/2024 Patient Outreach [address] [address] Lissy Gracia MD Care Coordination (C3 -W [facility] telephone call outreach) 11/18/2024 Travel 11/15/[address] [address] Reinaldo Persaud, LILIANE Care Management (C3CM- f/u call) 11/14/2024 1:40 PM EST Office Visit [facility] WALK-IN CENTER [address] [place] [address] Candice Moreland DO Mild persistent asthma without complication (Primary Dx) 11/12/2024 1:15 PM EST Office Visit [address] [address] Lissy Gracia MD Chronic migraine without aura without status migrainosus, not intractable (Primary Dx) 11/12/2024 Travel 11/11/2024 11:00 AM EST Office Visit [address] [address] Lissy Gracia MD Fibromyalgia (Primary Dx); Thrush, oral 11/11/2024 9:15 AM EST Office Visit [address] [address] Irene Singletary MD Chronic migraine without aura without status migrainosus, not intractable (Primary Dx); Anxiety 11/08/2024 Patient Outreach [address] [place] [address] Lissy Gracia MD Care Coordination (C3 CM-[facility] Ammy Ziegler telephone call outreach) 11/07/2024 1:20 PM EST Office Visit [facility] WALK[facility] C[facility] [place] [address] Candice Moreland DO Mild persistent asthma with acute exacerbation (Primary Dx) 11/07/2024 9:00 AM EST Office Visit [facility] MEDICINE [facility] [facility] [place] [place] [address] Irene Singletary MD Chronic migraine without aura without status migrainosus, not intractable (Primary Dx); Anxiety 11/07/2024 Patient Outreach [address] [place] [address] Lissy Gracia MD 11/07/2024 Travel 11/05/2024 1:15 PM EST Office Visit [address] [place] [address] Lissy Gracia MD Fibromyalgia (Primary Dx); Chronic migraine without aura without status migrainosus, not intractable; Tendency toward bleeding easily (CMS/HCC) 11/05/2024 Telephone [facility] [place] [address] Reinaldo Persaud RN Care Management (C3CM- initial assessment/ enrollment.) 11/05/2024 Patient Outreach [address] [place] [address] Lissy Gracia MD Care Coordination (C3 -[facility] Ammy Ziegler telelphone call outreach) 11/05/2024 Refill [facility] [place] [address] Lissy Gracia MD Bronchitis 11/05/2024 Travel 10/31/2024 9:30 AM EST Office Visit [facility] [place] [address] Irene Singletary MD Chronic migraine without aura without status migrainosus, not intractable (Primary Dx); Anxiety 10/31/2024 Travel 10/30/2024 Patient Outreach [address] [place] [address] Lissy Gracia MD Care Coordination (C3 CM-W Ammy [facility]iegler telephone call outreach) 10/30/2024 Telephone [facility] MEDICINE [address] [place] [address] Reinaldo Persaud RN Care Management (C3CM- chart review) 10/30/2024 Orders Only [facility] External Provider, [facility] from Last 3 Months Immunizations Name Administration [...] Description 03/14/2025 2:15 PM EDT Office Visit [facility] MEDICINE [address] [place] [address] Lissy Gracia MD [address] [place], [place] [phone] Health Maintenance Due Date Last Done Comments [...] bleeding easily (CMS/HCC) RETICULOCYTE COUNT Routine 11/25/2024 9 :40 AM EST Tendency toward bleeding easily (CMS/HCC) [...] QL NAAT Routine 10/30/2024 1:09 AM EST HEMOGLOBIN A1C Routine 10/22/2024 3:49 PM EST Type 2 diabetes mellitus without complication, without long-term current use of insulin (CMS/HCC) PROPHYLAXIS - ADULT Routine 09/11/2024 2 :00 [...] C ANTIBODY Routine 06/16/2020 12:35 PM EDT [facility] HISTORICAL HIV AB/AG Routine 06/16/2020 12:35 PM EDT from Last 3 Months or Most Recently Relevant to Health Maintenance Results * T-SPOT??.TB (11/25/2024 9:40 AM EST) [facility] T Spot TB Negative Negative [facility] Comment:A negative test resu lt does [...] as aquantitative test. TS PANEL A 0 [facility] TS PANEL B 0 [facility] Negative Control Passed [facility] Positive Control Passed [facility] Comment:For additional infor mation, please refer [email or web address]-ID/faq/[email or web address](This link is being provided for informational/educational purposes only.)THIS TEST WAS PERFORMED AT:[employer] [id number] [place] [address]UCMARBLBHARAT MAXWELL MD,PHD 11/25/2024 9:40 AM EST 11/25/2024 11:06 AM EST Lissy Gracia MD LAB BLOOD ORDERABLES Final Res ult [facility] [address] [place] [phone] * (ABNORMAL) Reticulocyte Count (11/25/2024 9:40 AM EST) Reticulocytes Absolute 0.072 0.026 - 0.095 X10*6/uL [facility] Immature Retic Fraction 15.0 3.0 - 15.9 % [facility] Retic HGB Equivalent 27.9(L) 30.0 - 35.0 pg [facility] Reticulocyte Percent 1.4 0.5 - 1.8 % [facility] Blood Venous blood specimen / Unknown 11/25/2024 9:40 AM EST 11/25/2024 11:06 AM EST Lissy Gracia MD LAB BLOOD ORDERABLES Final Res ult Performing Organization Address [facility] Co de Phone Number [facility] [address] [place] [phone] * Ferritin (11/25/2024 9:40 AM EST) Pathologist [facility] Ferritin 22 10 - 250 ng/mL [facility] Blood Venous blood specimen / Unknown 11/25/2024 9:40 AM EST 11/25/2024 11:06 AM EST Lissy Gracia MD LAB BLOOD ORDERABLES Final Res ult Performing Organization Address [facility] Co de Phone Number [facility] [address] [place] [phone] * Influenza B (ID NOW Rapid Molecular) (11/14/2024 1:52 PM EST) Only the most recent of2 resultswithin the time period is included. [facility] Influenza B Negative Negative, Indeterminate [facility] Swab 11/14/2024 1:52 PM EST Candice Moreland DO POINT OF CARE TEST ENTER/GOPAL T ORDERABLES Final Result Performing Organization Address [facility] de Phone Number [facility] [address] [place] [phone] * Influenza A (ID NOW Rapid Molecular) (11/14/2024 1:52 PM EST) Only the most recent of2 resultswithin the time period is included. Pathologist [facility] Influenza A Negative Negative, Indeterminate [facility] Swab 11/14/2024 1:52 PM EST Candice Moreland DO POINT OF CARE TEST ENTER/GOPAL T ORDERABLES Final Result Performing Organization Address [facility] Co de Phone Number [facility] [address] [place] [phone] * POCT Rapid COVID Ag (11/14/2024 1:52 PM EST) Only the most recent of2 resultswithin the time period is included. Rapid COVID Ag Negative [facility] Swab 11/14/2024 1:5 2 PM EST Candice Moreland DO POINT OF CARE TEST ENTER/GOPAL T ORDERABLES Final Result Performing Organization Address [facility] Co de Phone Number [facility] [address] [place] [address] [phone] * POCT rapid strep A manually resulted (11/14/2024 1:52 PM EST) [facility] Rapid Strep A Screen Negative Negative, None Detected [facility] Swab 11/14/2024 1:52 PM EST Candice Moreland DO POINT OF CARE TEST ENTER/GOPAL T ORDERABLES Final Result Performing Organization Address [facility] de Phone Number [facility] [address] [place] [address] [phone] * XR Chest 2 Views (10/30/2024 1:42 AM EST) Anatomical Region Laterality Modality Chest Radiographic Liss ging 10/30/2024 1:42 AM EST Narrative 10/30/2024 1:44 AM EST ? [facility] ?[address] ?[place] [address] ?XRay Report ? Signed ? Patient: Irene Garcia ?MR#: ?? [id number] ? : 1975 ?Acct:[id number] ? Age/Sex: 48 / F ?ADM Date: 01/15/25 ? Loc: HO.ED ? Attending Dr: ? Ordering Physician: Generic ED Physician ?? Date of Service: 10/30/24 ?? Procedure(s): XR chest 2V ?? Accession Number(s): [id number] ? cc: Generic ED Physician; [facility] ? CLINICAL HISTORY: cough, lung pain [...] in OV> ? 10/30/24 0143 ? DD/ 1 ? TD/TT: 10/30/24 0142 ? Lead Installer: ? Procedure Note Doncristianoter, Image - 10/30/2024 [place] [address] XRay Report Signed Patient: Irene GarciaMR#: [id number] : 1975Acct:[id number] Age/Sex: 48 / FADM Date: 10/30/24 Loc: HO.ED Attending Dr: Ordering Physician: Generic ED Physician Date of Service: 10/30/24 Procedure(s): XR chest 2V Accession Number(s): [id number] cc: [facility] ED Physician; [facility] CLINICAL HISTORY: cough, lung pain 2 [...] OV> 10/30/24 014 DD/ 1 TD/TT: 10/30/24141 Lead Installer: [facility] External Provider IMG XR PROCEDURES Final Result * SARS-CoV-2 RNA, Influenza A/B, and RSV RNA, Ql NAAT (10/30/2024 1:09 AM EST) Influenza A PCR NEGATIVE Negative [facility] Influenza B PCR NEGATIVE Negative [facility] Resp Syncy Virus RNA Qual PCR NEGATIVE Negative [facility] SARS COV2 PCR NEGATIVE Negative [facility] Comment:All test results mus t [...] use by authorized laboratories.Testing performed on the [employer] GeneXpert utilizingreal-time RT-PCR.All SARS CoV2 and positive influenza A/B results arereported to [facility]. 10/30/2024 1:09 AM EST 10/30/2024 1:12 AM EST us Generic External Data Provider LAB MICROBIOLOGY - GENERAL ORDERABLES Final Result [facility] [address] [place] [address] [phone] * (ABNORMAL) Hemoglobin A1c (10/22/2024 3:49 PM EST) Hemoglobin A1c 8.7(H) <6.0 % [facility] Comment:Hemoglobin A1C Refer ence Range Adults: 4.8 - 6.0 % Non diabetic: < 6.0 % Goal: < 7.0 %Additional Action Suggested: > 8.0 %Note: Hemoglobin A1c results are invalid for patients with abnormal amounts of HbF. Blood transfusions may impact the HbA1c concentration in the patient sample. Estimated Average Glucose 203 mg/dL [facility] Comment:eAG = Estimated ave rage glucose which is %A1C expressed asaverage glucose, using the formula of the [id number] Glucose study (ADAG), Diabetes Care, Vol.31,#8,Aug. 2008 Blood Venous blood specimen / Unknown 10/22/2024 3:49 PM EST 10/22/2024 5:46 PM EST us Lissy Gracia MD LAB BLOOD ORDERABLES Final Res ult [facility] [address] [place] [address] [phone] * BI Mammogram Screening Tomosynthesis Bilateral (01/11/2024 2:45 PM EDT) Anatomical Region Laterality Modality Breast Bilateral Mammography 01/11/2024 2:45 PM EDT Narrative 02/06/2024 6:07 AM EDT ? [facility] [place] ? [address] ?[place] [address] ? Mammography Report ? Signed ? Patient: Ibanez Mundo,Irene ?MR#: ?? [id number] ? : 1975 ?Acct:[id number] ? Age/Sex: 48 / F ?ADM Date: 03/28/24 ? Loc: HO.MAMMO ? Attending Dr: Lissy rGacia MD ? Ordering Physician: Lissy Gracia ?Results: 1Negative ? Date of Service: /28/24 ?Follow Up: 1 Year From Orig ?? inal Mammogram ? Procedure(s): MM tomosynthesis screening BI ?? Accession Number(s): [id number] ? cc: Lissy Gracia ? EXAMINATION: ?? [...] 0604 ? DD/ 1445 ? TD/TT: ? Lead Installer: ? Procedure Note Bayron, Image - 02/06/2024 [facility] [address] [place] [address] [place] [address] Mammography Report Signed Patient: Tim Garciaammy#: [id number] : 1975Acct:[id number] Age/Sex: 48 / FADM Date: 01/11/24 Loc: HO.MAMMO Attending Dr: Lissy Gracia MD Ordering Physician: Rodriguez Graciaults: 1Negative Date of Service: 01/11/24Follow Up: 1 Year From Orig ina Mammogram Procedure(s): MM tomosynthesis screening BI Accession Number(s): [id number] cc: Lissy Gracia EXAMINATION: MM SCREENING DIGITAL [...] in OV> 02/06/24 0604 DD/ 1445 TD/TT: Lead Installer: Lissy Gracia MD IMG BI PROCEDURES Final Result * Lipid Panel, Standard (12/25/2023 9:46 AM EDT) Triglycerides 44 <150 mg/dL [facility] Comment:Desirable Triglyceri de: less than 150 mg/dLBorderline High Triglyceride 150-199 mg/dLHigh Triglyceride: 200-499 mg/dLVery High Triglyceride: greater than or equal to 5OO mg/dL Cholesterol 145 <200 mg/dL [facility] Comment:Desirable Cholestero l: less than 200 mg/dLBorderline High Cholesterol: 200-239 mg/dLHigh Cholesterol: greater than 239 mg/dL LDL Cholesterol Calculated 64 <100 mg/dL [facility] Comment:Desirable LDL: less than 100 mg/dLNear Optimal/Above Optimal LDL: 110- 129 mg/dLBorderline High LDL: 130-159 mg/dLHigh LDL: 160-189 mg/dLVery High LDL: greater than or equal to 190 mg/dL HDL Cholesterol 73 >40 mg/dL [facility] Comment:Desirable HDL: great er than 40 mg/dL Note: This HDL assay may give artificially low results in patients with liver disease. Blood Venous blood specimen / Unknown 12/25/2023 9:46 AM EDT 12/25/2023 11:04 AM EDT us Lissy Gracia MD LAB BLOOD ORDERABLES Final Res ult Performing Organization Address City/State/[facility] Co de Phone Number [facility] [address] [place] [phone] * Pap Smear (11/22/2023 1:51 PM EST) 11/22/2023 1:51 PM EST 11/24/2023 8:30 AM EST Narrative [facility] - 12/04/2023 10:46 AM EST ----- ------- Name: Irene Garcia ?Age/Sex: 47/F ? : 1975 Unit#: [id number] ?? Attend Dr: Clare Jackson CNM ?Re11/22/23 ?Status: DEP REF ? Location: HO.LNP ?Disch: ? ----- ------- SPEC : [id number] ? RECD: 11/24/23 ? STATUS: ??SOUT ? REQ NUM: [id number] ? CHENG: 11/22/23-287 ? SUBM DR: Clare Jackson CNM ? [...] Not Detected ? HPV testing performed by [facility], [place], [place]. ??See reference laboratory ?? portion of the EMR for entire report. ?Clinical Information LMP: 11/14/23 Previous PAP test: 09/12/22, HPV+ ? Material Received ?? ThinPrep-Cervical Copies To: ?? Lissy Gracia ?? [address] [facility] ?? [place] [address] ?? [phone] ?? Clare Jackson CNM ?? [address] [facility] ?? [place] [address] ?? [phone] ----- ------- Signed (signature on file) Candelaria García 12/04/23 1046 ? ----- ------- ? END OF REPORT ? us Generic External Data Provider LAB CYTOLOGY ORDE QUIN Final Result Performing Organization Address [facility]/ZIP Co de Phone Number [facility] [address] [place] [phone] * Albumin, Random Urine W/Creatinine (11/06/2023 2:33 PM EST) Creatinine, Urine 59.51 mg/dL [facility] Microalbumin Urine 14.0 mg/L [facility] Microalbum Creatinine Ratio Ur 23.5 <30 ug/mg cr [facility] Comment:Albumin/Creatinine R atio Reference Ranges: Normal: < 30 ug/mg creatinine Microalbuminuria: 30 - 300 ug/mg creatinineClinical Albuminuria: > 300 ug/mg creatinine Urine (Urine, Random) 11/06/2023 2:33 PM EST 11/06/2023 4:16 PM EST Lissy Gracia MD LAB URINE ORDERABLES Final Res ult Performing Organization Address [facility] Co de Phone Number [facility] [address] [place] [phone] * (ABNORMAL) HPV mRNA E6/E7 w/Reflex to HPV Genotypes 16, 18/45 (09/12/2022 9:53 AM EST) HPV nRNA E6/E7 Detected(A ) Not Detected [facility] Comment:Methodology: Transcr iption-Mediated AmplificationThis assay detects E6/E7 viral messenger RNA (mRNA) from 14high-risk HPV types (16,18,31,33,35,39,45,51,52,56,58,59,66,68).Cervical sources are required for HPV testing.If a vaginal source from a patient who has had atotal hysterectomy with removal of cervix wassubmitted, please contact the testing laboratoryfor alternative testing options.For additional information, please refer [email or web address](This link if provided for information/educational purposes only.)THIS TEST WAS PERFORMED AT:[employer],[place] [address]YCAWXCASSIUS HEIN MD HPV 16 RNA NOT DETECTED NOT DETECTED [facility] HPV 18/45 RNA NOT DETECTED NOT DETECTED [facility] Comment:Methodology: Transcr iption Mediated AmplificationCervical sources are required for HPV testing.If a vaginal source from a patient who has had atotal hysterectomy with removal of cervix wassubmitted, please contact the testing laboratoryfor alternative testing options.THIS TEST WAS PERFORMED AT:[employer] [id number],[place] [phone] HEIN MD 09/12/2022 9:53 AM EST 09/12/2022 12:00 PM EST [facility] External Provider LAB CYT OLOGY ORDERABLES Final Result Performing Organization Address [facility]/ZIP Co de Phone Number [facility] [address] [place] [phone] [phone] * HEPATITIS C ANTIBODY (06/16/2020 12:35 PM EDT) HEPATITIS C ANTIBODY NONREACTIVE NONREACTIVE [facility] Comment: Antibodies to HCV not detected; does not exclude early acute HCV infection. 06/16/2020 12:3 5 PM EDT Historical Provider HISTORICAL/NON ORDERABLE LABS Final Result Performing Organization Address [facility]/ZIP Co de Phone Number [facility] [address] * HIV AB/AG (06/16/2020 12:35 PM [...] detection of this assay. ?? [employer] Supervisor HIV Ag/Ab Combo assay result and supplemental assay results should be interpreted in conjunction with the patient's clinical presentation, history and other laboratory results. ??If the results are inconsistent with clinical evidence, additional testing is suggested to confirm the result. 06/16/2020 12:3 5 PM EDT us Historical Provider MD HISTORICAL/NON ORDERABLE LABS Final Result [facility] [address] from Last 3 Months or Most Recently Relevant to Health Maintenance Insurance [facility] C3 HSN PARTIAL DENTAL-[facility] MEDICAID STAND ADULT Care Teams Track Fitter Relationship Specialty Start Date End Date Lissy Gracia MD [address] [place] [address] PCP - General Family Medicine 06/07/21 Reinaldo Persaud RN [address] [place] [phone] Lecturer In Computer ScienceMold Dumper 11/05/24
--- OUTSIDE RECORDS SUMMARY | 2025-01-28 08:43 | XMS_ITS | Encounter Summary ---
Author Organization [employer] Address [address] [place] [address] Care Team Providers Care Air Control/Anti Air Warfare Officer Name Role Phone Lissy Gracia MD Primary Care Provider [phone] Reinaldo Persaud RN Unavailable [phone] Encounter Details Date Type Department Care Team ([facility] st Contact Info) Description 01/19/2024 Telephone [facility] [address] [place], [place] [phone] Lissy Gracia MD [address] [place] [address] Social History Tobacco Use Types Packs/Day Years [...] 03/14/2025 2:15 PM EDT Office Visit [facility] [address] [place] [phone] Lissy Gracia MD [address] [place] [phone] documented as of this encounter Visit Diagnoses Not on filedocumented in this encounter Additional Health Concerns Assessment Noted Time PHQ-9 Depression Total Score: 0 06/09/20 3:37 PM EDT documented as of this encounter Care Teams Air Control/Anti Air Warfare Officer Relationship Specialty Start Date End Date Lissy Gracia MD [address] [place] [phone] PCP - General Family Medicine 06/07/21 Reinaldo Persaud RN [address] [place] [phone] Business Office AssistantCorporate Technical Recruiter 11/05/24 documented as of this encounter
== END 2025-01-28 09:07 | disposition home or self-care (01) ==
LOC: HO.HGI 08:29
PROVIDERS: PCP General Practice; Visit Provider Nurse Practitioner Family
DX: K59.04 Chronic idiopathic constipation (principal); K21.9 Gastro-esophageal reflux disease without esophagitis; R10.13 Epigastric pain; R14.0 Abdominal distension (gaseous)
CPT/HCPCS: 99214

== ENCOUNTER → 2025-01-28 08:28 | Outpatient (BNVA) | payer MEDICAID, SELFPAY | PROVIDERS: PCP General Practice; Visit Provider Nurse Practitioner Family | DX: K59.04 Chronic idiopathic constipation (principal); K21.9 Gastro-esophageal reflux disease without esophagitis; R10.13 Epigastric pain; R14.0 Abdominal distension (gaseous) | CPT/HCPCS: 99212 ==

== ENCOUNTER 2025-01-30 10:05 | Outpatient (AMB) | payer MEDICAID, SELFPAY ==
--- NOTE | 2025-01-30 10:11 | A.OFFVIS_ITS ---
Vital Signs 01/30/25 10:30 Height 5 ft 6 in Weight 179 lb BMI 28.9 BP 159/82 H Blood Pressure Location Rt brachial Position Sitting Pulse 88 Intake Visit Reasons: Lipoma vs cyst~ above Rt forehead/ above eyebrow Intake Note: Patient referred by pcp Dr. Gracia for lipoma vs cyst on rt forehead above eyebrow. Present for 1yr. Of note: Hx of lipoma excised on Rt forehead on 06-07-2018. Patient c/o: enlarging. Denies pain. Sed Middle School Teacher Required: Yes Sed Middle School Teacher Name: Laquita BAILEY Accompanied by: Self / Same As Patient Allergies Seasonal Allergies Allergy (Mild, Verified 01/30/25 10:27) Runny Nose Medication List - Last Reconciled 01/30/25 by Dominik Garcia MD albuterol sulfate 90 mcg/actuation 1 inh inhalation QID PRN albuterol sulfate mg inhalation Q4H PRN alum-mag hydroxide-simeth 400-400-40 mg/5 mL (Mylanta Maximum Strength) 5 mL PO QID PRN amitriptyline 50 mg PO BEDTIME aripiprazole 2 mg PO DAILY kjsrkfa-juqlqkghsvsvo-feygqfbe 250-250-65 mg (Excedrin Migraine) 2 tabs PO Q6H PRN atorvastatin 40 mg PO QPM blood sugar diagnostic (FreeStyle Lite Strips) 1 strip miscellaneous TID buspirone 15 mg PO BID cetirizine (Zyrtec) 10 mg PO DAILY clotrimazole 1% (Antifungal (clotrimazole)) 1 appl topical TID cyclobenzaprine 10 mg PO TID diclofenac sodium 1% 2 grams topical diphenhydramine HCl 50 mg (2 x 25 mg) PO Q6H PRN docusate sodium 100 mg PO BEDTIME dulaglutide (Trulicity) mg subcut QWEEK esomeprazole magnesium (Nexium) 40 mg PO DAILY ferrous sulfate 325 mg PO DAILY fluticasone furoate-vilanterol 200-25 mcg/dose (Breo Ellipta) 1 inh inhalation DAILY fluticasone propionate 50 mcg/actuation 1 spray intranasal DAILY gabapentin 300 mg PO TID glipizide 10 mg PO DAILY hydrochlorothiazide 25 mg PO DAILY ibuprofen 400 mg PO Q8H ketorolac 10 mg PO Q8H lancets (TRUEplus Lancets) 1 gauge miscellaneous TID lidocaine 5% 1 patch topical DAILY lisinopril 10 mg PO DAILY lorazepam 0.5 mg PO BID PRN magnesium oxide 400 mg PO DAILY medroxyprogesterone (Depo-Provera) 150 mg IM Q12W metformin 500 mg PO BID mometasone 100 mcg/actuation (Asmanex HFA) 1 puff inhalation BID naproxen (Naprosyn) 500 mg PO BID nystatin 1 mL PO DAILY ondansetron 4 mg PO Q8H sennosides (Natural Senna Laxative) 17.2 mg (2 x 8.6 mg) PO BEDTIME sertraline (Zoloft) 50 mg PO DAILY sucralfate 1 g PO BEDTIME triamcinolone acetonide 0.1% appl topical HPI HPI Lipoma vs cyst~ above Rt forehead/ above eyebrow: Details: [age] year old female referred for a lipoma of the right forehead. She says that she has noticed this for about a year. Review of her records show that she had a lipoma removed on the same area about 7 years ago. She denies any skin changes in the area. She has a known diabetic. [facility] Medical History (Updated 01/30/25 @ 10:42 by Dominik Garcia MD) Lipoma of forehead Dysplasia of cervix, low grade (DEE 1) Plantar fasciitis Chronic migraine Iron deficiency Depression Hyperlipidemia LDL goal <100 Essential hypertension Type 2 diabetes mellitus with hyperglycemia Surgical History Hx of tubal ligation Family History Father No problems noted. Mother HTN (hypertension) Maternal Grandfather HTN (hypertension) Myocardial infarct Maternal Grandmother Diabetes Breast cancer Maternal Aunt Diabetes Social History Household Members: Children Unable to assess alcohol history related to: Unknown Alcohol intake: former Patient Tobacco Use Status: Never used Tobacco Advance Directives Date on File: 11/23/23 Female Reproductive History Menstrual Age of Menarche: 10 Review of Systems Const Denies chills and Denies fever(s) Card Denies chest pain, Denies dyspnea and Denies dyspnea on exertion Resp Denies cough, Denies dyspnea and Denies dyspnea on exertion GI Denies hematochezia and Denies change in bowel habits Denies hematuria Musc Denies back pain and Denies limited range of motion Neuro Denies focal weakness and Denies convulsions Psych Denies depression and Denies mood swings Physical Exam Vital Signs: Last Vital Signs Pulse 88 01/30/25 10:30 BP 159/82 H 01/30/25 10:30 BMI result Body Mass Index 28.9 Const General: comfortable and no acute distress Orientation/consciousness: patient oriented x3 HEENT Other: Lipomatous mass on the right forehead about 1.5 cm Neck Neck: Yes no lymphadenopathy Resp Auscultation: clear to auscultation bilaterally Cardio Rhythm: regular rhythm GI Palpation (GI): Soft to palpation, nontender and no guarding Neuro General: patient oriented x3 Assessment & Plan Assessment & Plan (1) Lipoma of forehead: Code(s): D17.0 - Benign lipomatous neoplasm of skin and subcutaneous tissue of head, face and neck Category: Medical Plan: She wants this excised. I explained the technique of excision under local anesthesia. I reviewed the risks including but not limited to bleeding and infections. She understands and wants to proceed This will be done on her next visit in the office. Coding Level of Care Code New Pt Level 3 (35577) Diagnoses Lipoma of forehead D17.0
[2025-01-30 10:30] VITALS: BP 159/82; PULSE 88; BMI 28.9
--- OUTSIDE RECORDS SUMMARY | 2025-01-30 11:54 | XMS_ITS | Encounter Summary ---
Author Organization [employer] [facility] Address [address] [place] [address] Care Team Providers Care Binding End Stitcher Name Role Phone Lissy Gracia MD Primary Care Provider [phone] Reinaldo Persaud RN Unavailable [phone] Reason for Visit * Reason Comments Care Coordination C3 [facility] Ammy bruce telephone call outreach Encounter Details Date Type Department Care Team (Latest Contact Info) Description 01/29/2025 Patient Outreach [facility] [address] [place] [address] Lissy Gracia MD [address] [place] [address] Care Coordination ([facility] telephone call outreach) Social History Tobacco [...] encounter Progress Notes * Ammy Ziegler - 01/29/2025 8:53 AM EDT CHW Ammy Ziegler placed outbound call to patient. No answer at this time. LVM introducing herself from [facility] CM Department, reminding patient of appointment on 01/30/25 @ 10:30AM. Requested call back to or , as well as for any additional questions or concerns. documented in this encounter Plan of Treatment Upcoming Encounters Date Type Department Care Team (Late st Contact Info) Description 03/14/2025 2:15 PM EDT Office Visit [facility] [address] [place] [address] Lissy Gracia MD [address] [place] [address] documented as of this encounter Visit Diagnoses Not on filedocumented in this encounter Additional Health Concerns Assessment Noted Time PHQ-9 Depression Total Score: 0 02/05/20 24 1:47 PM EDT documented as of this encounter Care Teams Binding End Stitcher Relationship Specialty Start Date End Date Lissy Gracia MD [address] [facility] [place] [address] PCP - General Family Medicine 06/07/21 Reinaldo Persaud, LILIANE [address] [place] [address] Nurse Practitioner Per DiemRate Manager 11/05/24 documented as of this encounter
--- OUTSIDE RECORDS SUMMARY | 2025-01-30 11:54 | XMS_ITS | Clinical Summary ---
Author Organization [employer] Address [address] [place] [address] Care Team Providers Care Torch Burner Name Role Phone Lissy Gracia MD Primary Care Provider [phone] Reinaldo Persaud RN Unavailable [phone] Allergies No known active allergies Medications docusate sodium (Colace) 100 MG capsule Take 100 mg by mouth at bedtime. 022 Active famotidine (Pepcid) 40 MG tablet Take 40 mg by mouth at bedtime. 022 Active Blood Glucose Monitoring Suppl (E-SignStyle Lite) w/Device kitIndications:Ty pe 2 diabetes mellitus with hyperglycemia, without long-term current use of insulin ([facility]) 1 kit 2 times daily. To monitor [...] hyperglycemia, without long-term current use of insulin ([facility]) 1 each by Other route 2 times [...] hyperglycemia, without long-term current use of insulin ([facility]) Inject 0.5 mL (1.5 mg) as directed [...] be having hypoglycemic episodes, including shaking in [place] where she hit her head Assessment & [...] 300mg daily Maintenance: Eye Exam: [facility] at [facility] 04/2022, next 04/2024 Diabetic foot [...] 300mg daily Maintenance: Eye Exam: [facility]GA at [facility] 04/2022, next 04/2024 Diabetic foot [...] for f/u Maintenance: Eye Exam: [facility] at [facility] 04/2022 Diabetic foot exam: 06/2022, [...] for f/u Maintenance: Eye Exam: [facility] at [facility] 04/2022 Diabetic foot exam: 06/2022, [...] for f/u Maintenance: Eye Exam: [facility] at [facility] 04/2022 Diabetic foot exam: 06/2022, [...] for f/u Maintenance: Eye Exam: [facility] at [facility] 04/2022 Diabetic foot exam: 06/2022, [...] for f/u Maintenance: Eye Exam: [facility] at [facility] 04/2022 Diabetic foot exam: 06/2022, [...] Encounters Date Type Department Care Team Description 01/30/2025 9:00 AM EDT Office Visit [facility] MEDICINE [address] [place] [address] Irene Singletary MD Chronic migraine without aura without status migrainosus, not intractable (Primary Dx); Anxiety 01/30/2025 Travel 01/29/2025 Patient Outreach [address] [address] Lissy Gracia MD Care Coordination (C3 CM-[facility]W Ammy Ziegler telephone call outreach) 01/27/2025 Patient Outreach [address] [address] Lissy Gracia MD Care Coordination (C3 CM-[facility]W Ammy Ziegler telephone call outreach) 01/23/2025 Orders Only GENERIC EXTERNAL DATA DEPARTMENT Provider, Generic External Data 01/22/[address] [address] Lissy Gracia MD [facility] 01/22/2025 Patient Outreach [address] [address] Lissy Gracia MD Care Coordination (C3 CM-CHW Ammy Ziegler telephone call outreach) 01/21/[address] [address] Lissy Gracia MD Care Management (C3CM- f/u call) 01/21/2025 Patient Outreach [address] [address] Lissy Gracia MD Care Coordination (C3 CM-CHW Ammy Ziegler telephone call outreach) 01/20/2025 Patient Outreach [address] [address] Lissy Gracia MD Care Coordination (C3 CM-CHW Ammy Ziegler telephone call outreach) 01/14/2025 1:15 PM EDT Office Visit [address] [address] Lissy Gracia MD Chronic migraine without aura without status migrainosus, not intractable (Primary Dx); Acute eczematoid otitis externa of both ears; Fibromyalgia 01/14/2025 Patient Outreach [address] [address] Lissy Gracia MD Care Coordination (C3 [facility] Ammy Ziegler telephone call outreach /) 01/14/2025 Travel 01/09/2025 10:30 AM EDT Office Visit [address] [address] Irene Singletary MD Chronic migraine without aura without status migrainosus, not intractable (Primary Dx); Anxiety 01/09/2025 Travel 01/08/[address] [address] Lissy Gracia MD Care Management (C3CM- f/u call) 01/07/2025 1:15 PM EDT Office Visit [address] [address] Lissy Gracia MD Fibromyalgia (Primary Dx); Type 2 diabetes mellitus with hyperglycemia, without long-term current use of insulin ([facility]) 01/07/2025 Travel 01/06/2025 9:15 AM EDT Office Visit [address] [address] Irene Singletary MD Chronic migraine without aura without status migrainosus, not intractable (Primary Dx); Anxiety 01/06/2025 Patient Outreach [address] [address] Lissy Gracia MD Care Coordination (C3 CM-W Ammy Ziegler telephone call outreach) 01/06/2025 Patient Outreach [address] [address] Lissy Gracia MD Care Coordination (C3 CM-[facility] Ammy Ziegler telephone call outreach) 01/06/2025 Travel 01/02/2025 Patient Outreach [address] [address] Lissy Gracia MD Care Coordination (C3 [facility] Ammy Ziegler telephone call outreach) 01/01/[address] [address] Lissy Gracia MD [facility] 12/31/2024 1:15 PM EDT Office Visit [address] [address] Lissy Gracia MD Fibromyalgia (Primary Dx); Chronic migraine without aura without status migrainosus, not intractable 12/31/2024 Travel 12/30/2024 11:00 AM EDT Office Visit [facility] [place] [address] Lissy Gracia MD Fibromyalgia (Primary Dx); Dietary counseling; Exercise counseling; Overweight; Daytime somnolence 12/30/2024 9:45 AM EDT Office Visit [facility] MEDICINE [address] [place] [address] Irene Singletary MD Chronic migraine without aura without status migrainosus, not intractable (Primary Dx); Anxiety 12/30/2024 Telephone [facility] [place] [address] Lissy Gracia MD Prior Authorization ( [place] Request: [employer]) 12/30/2024 Travel 12/27/2024 Telephone [facility] [place] [address] Lissy Gracia MD Schedule pain groupm(MONDAYS) 12/27/2024 Population Health Risk Score [facility] ([facility] Department [address] [place] [address] [phone] Provider, Population Health Generic 12/26/2024 Refill [facility] [place] [address] Lissy Gracia MD Cervical radiculopathy 12/24/2024 Telephone [facility] [place] [address] Lissy Gracia MD Care Management (C3- f/u call lvm) 12/23/2024 9:00 AM EDT Office Visit [facility] [place] [address] Irene Singletary MD Chronic migraine without aura without status migrainosus, not intractable (Primary Dx); Anxiety 12/23/2024 Travel 12/20/2024 Patient Outreach [facility] [facility] [place] [address] Lissy Gracia MD Care Coordination ([address] Ammy Ziegler telephone call outreach) 12/20/[address] [address] Lissy Gracia MD Cervical radiculopathy 12/19/2024 10:15 AM EST Office Visit [address] [address] Irene Singletary MD Chronic migraine without aura without status migrainosus, not intractable (Primary Dx); Anxiety 12/19/2024 Travel 12/17/2024 1:15 PM EST Office Visit [address] [address] Lissy Gracia MD Fibromyalgia (Primary Dx) 12/17/2024 Travel 12/16/[address] [address] Lissy Gracia MD No Show 12/16/2024 Patient Outreach [address] [address] Lissy Gracia MD Care Coordination (C3 CM-W Ammy Ziegler telephone call outreach) 12/12/2024 Patient Outreach [address] [address] Lissy Gracia MD Care Coordination (C3 CM-CHW Ammy Ziegler telephone call outreach) 12/12/[address] [address] Lissy Gracia MD Care Management (C3CM- f/u call) 12/10/2024 1:15 PM EST Office Visit [address] [address] Lissy Gracia MD Fibromyalgia (Primary Dx); Chronic migraine without aura without status migrainosus, not intractable 12/10/2024 Travel 12/10/2024 Patient Outreach [address] [address] Lissy Gracia MD Care Coordination (C3 CM-CHW Ammy Ziegler telephone call outreach) 12/09/[address] [phone] Lissy Gracia MD Allergic rhinitis, unspecified seasonality, unspecified trigger 12/06/2024 Patient Outreach [facility] MEDICINE [address] [place] [address] Lissy Gracia MD Care Coordination (C3 [facility] telephone call outreach) 12/05/2024 9:30 AM EST Office Visit [facility] MEDICINE [address] [place], [place] [address]klarissa [facility] [place] [address] Irene Singletary MD Chronic migraine without aura without status migrainosus, not intractable (Primary Dx); Anxiety 12/05/2024 Outside Procedure [facility] OPTOMETRY [address] [place] [phone] MarshallCelson, OD Presbyopia (Primary Dx) 12/05/2024 Refill [facility] WALK-IN CENTER [address] [place] [address] Roscoe Alfaro MD 12/05/2024 Travel 12/04/2024 9:15 AM EST Office Visit [facility] OPTOMETRY [address] [place] [address] MarshallCelso umanan, OD Hyperopia of both eyes (Primary Dx) 12/04/2024 Patient Outreach [facility] MEDICINE [address] [place] [address] Lissy Gracia MD Care Coordination (C3 [facility] 12/04/2024 Patient Outreach [facility] MEDICINE [address] [place] [address] Lissy Gracia MD Pre-visit Planning (SDOH screening positive and tobacco screening negative) 12/04/2024 Travel 12/03/2024 9:45 AM EST Office Visit [facility] MEDICINE [address] [place] [address] Irene Singletary MD Chronic migraine without aura without status migrainosus, not intractable (Primary Dx); Anxiety 12/03/2024 Telephone [facility] MEDICINE [address] [place] [address] Lissy Gracia MD Appointment Request 12/03/2024 Travel 11/29/2024 Telephone [facility] MEDICINE [address] [place] [address] Lissy Gracia MD 11/29/2024 Telephone [facility] MEDICINE [address] [place] [address] Lissy Gracia MD Care Management (C3CM- f/u call) 11/28/2024 9:00 AM EST Office Visit [facility] ADULT DENTAL [address] [place] [address] Pedroza Wendi Dental calculus (Primary Dx); Dental plaque; Subgingival dental calculus 11/28/2024 Refill [facility] MEDICINE [address] [place] [address] Lissy Gracia MD Chronic bilateral low back pain, unspecified whether sciatica present 11/27/2024 Patient Outreach [address] [address] Lissy Gracia MD Care Coordination (C3 [facility] Ammy Ziegler telephone call outreach) 11/26/2024 1:15 PM EST Office Visit [address] [address] Lissy Gracia MD Fibromyalgia (Primary Dx); Chronic migraine without aura without status migrainosus, not intractable 11/26/2024 Telephone [facility] MEDICINE [address] [place] [address] Susaan Casillas [place] Pain group 11/26/2024 Patient Outreach [address] [address] Lissy Gracia MD Care Coordination (C3 CM-[facility] Ammy Ziegler telephone call outreach/) 11/26/2024 Travel 11/26/2024 Patient Outreach [address] [address] Lissy Gracia MD Care Coordination (C3 CM-[facility] Ammy Ziegler telephone call outreach) 11/25/2024 Patient Outreach [address] [address] Lissy Gracia MD Care Coordination (C3 [facility] Ammy Ziegler telephone call outreach) 11/21/2024 Refill [facility] W[facility]IN [facility] [address] [place] [address] Candice Moreland DO 11/19/2024 1:15 PM EST Office Visit [facility] MEDICINE [address] [place] [address] Lissy Gracia MD Fibromyalgia (Primary Dx); Chronic migraine without aura without status migrainosus, not intractable 11/19/2024 8:00 AM EST Office Visit [facility] ADULT DENTAL [address] [place] [address] Ciro Rockwell, LINHS Retained dental root (Primary Dx) 11/19/2024 Travel 11/19/2024 Refill [facility] MEDICINE [address] [place] [address] Lissy Gracia MD 11/19/2024 Patient Outreach [address] [address] Lissy Gracia MD Transition Of Care (Tcm) 11/18/2024 9:00 AM EST Office Visit [address] [address] Irene Singletary MD Chronic migraine without aura without status migrainosus, not intractable (Primary Dx); Anxiety 11/18/[address] [address] Lissy Gracia MD Lab Orders 11/18/2024 Patient Outreach [address] [address] Lissy Gracia MD Care Coordination (C3 CM-W Ammy Ziegler telephone call outreach) 11/18/2024 Travel 11/15/[address] [address] Reinaldo Persaud, LILIANE Care Management (C3CM- f/u call) 11/14/2024 1:40 PM EST Office Visit [facility] WALK[facility]IN [facility]ENTER [address] [place] [address] Candice Moreland DO Mild persistent asthma without complication (Primary Dx) 11/12/2024 1:15 PM EST Office Visit [address] [address] Lissy Gracia MD Chronic migraine without aura without status migrainosus, not intractable (Primary Dx) 11/12/2024 Travel 11/11/2024 11:00 AM EST Office Visit [facility] MEDICINE [address] [place] [address] Lissy Gracia MD Fibromyalgia (Primary Dx); Thrush, oral 11/11/2024 9:15 AM EST Office Visit [address] [address] Irene Singletary MD Chronic migraine without aura without status migrainosus, not intractable (Primary Dx); Anxiety 11/08/2024 Patient Outreach [facility] MEDICINE [address] [place], [place] [address] [address] Lissy Gracia MD Care Coordination (C3 [facility] Ammy Ziegler telephone call outreach) 11/07/2024 1:20 PM EST Office Visit [facility] WALK[facility]IN CENTER [address] [place] [address] Candice Moreland DO Mild persistent asthma with acute exacerbation (Primary Dx) 11/07/2024 9:00 AM EST Office Visit [facility] MEDICINE [address] [place], [place] [address] [address] Irene Singletary MD Chronic migraine without aura without status migrainosus, not intractable (Primary Dx); Anxiety 11/07/2024 Patient Outreach [address] [address] Lissy Gracia MD 11/07/2024 Travel 11/05/2024 1:15 PM EST Office Visit [address] [address] Lissy Gracia MD Fibromyalgia (Primary Dx); Chronic migraine without aura without status migrainosus, not intractable; Tendency toward bleeding easily ([facility]) 11/05/[address] [address] Reinaldo Persaud, LILIANE Care Management (C3CM- initial assessment/ enrollment.) 11/05/2024 Patient Outreach [address] [address] Lissy Gracia MD Care Coordination (C3 CM-CHLuis M Ziegler telelphone call outreach) 11/05/2024 Refill [facility] MEDICINE [address] [place] [address] Lissy Gracia MD Bronchitis 11/05/2024 Travel from Last 3 Months Immunizations Name [...] Description 03/14/2025 2:15 PM EDT Office Visit [facility] MEDICINE [address] [place] [address] Lissy Gracia MD [address] [place] [address] Health Maintenance Due Date Last Done Comments [...] 11/06/2024 11/06/2023, 04/07/2023, 03/10/2022, Additional history exists Lipid Panel 12/24/2024 12/25/2023, 03/17, 02/05/2021, Additional [...] Screening 12/04/2025 12/04/2024 Tobacco Screening 01/14/2026 01/14/2025 Cervical Cancer Screening 01/23/2026 HPV/Cotest 01/23/2026 01/23/2025, 09/12/2022 Pap Smear 01/23/2026 01/23/2025, 04/2024, 09/12/2022 Eye Exam 10/22/2026 10/22/2024, 04/2025, 10/22/2024, Additional [...] Procedure Name Priority Date/Time Associated Diagnosis Comments PAP SMEAR Routine 01/23/2025 9:45 AM EDT HPV DNA, LOW/HIGH RISK Routine 01/23/2025 9:45 AM EDT CASE PRESENTATION, DETAILED AND EXTENSIVE TREATMENT PLANNING [...] EST Mild persistent asthma with acute exacerbation HEMOGLOBIN A1C Routine 10/22/2024 3:49 PM EST [...] underlying condition w oth circulatory comp (CMS/HCC) ALBUMIN, RANDOM URINE W/CREATININE Routine 11/06/2023 2:33 PM EST Diabetes due to underlying condition w oth circulatory comp (CMS/HCC) ZZZ HISTORICAL HEPATITIS C ANTIBODY Routine 06/16/2020 12:35 PM EDT ZZZ HISTORICAL HIV AB/AG Routine 06/16/2020 12:35 PM EDT from Last 3 Months or Most Recently Relevant to Health Maintenance Results * HPV DNA, Low/High Risk (01/23/2025 9:45 AM EDT) HPV High Risk Negative Negative [facility] HPV Genotype 16 Negative Negative [facility] HPV Genotype 18 Negative Negative [facility] Comment:HPV testing performe d at [facility] (CLIA#[id number]), [address] [place] [address].Testing for HPV was performed using the [employer] AVEL 6800system. The presence of HPV in the female genital tract isassociated with a number of diseases, including cervicalcarcinoma. The HPV DNA high risk pool tests for HPV 31, 33,35, 39, 45, 51, 52, 56, 58, 59, 66 and 68. The testing forHPV 16 and 18 genotypes has also been performed. A positiveresult indicates detection of nucleic acid sequences fromone or more subtypes, whereas a negative result indicatessuch sequences were not detected. 01/23/2025 9:45 AM EDT 01/23/2025 1:56 PM EDT us Generic External Data Provider LAB BLOOD ORDERAB LES Final Result [facility] [address] [place] [phone] * Pap Smear (01/23/2025 9:45 AM EDT) 01/23/2025 9:45 AM EDT 01/23/2025 1:56 PM EDT Narrative [facility] - 01/28/2025 10:46 AM EDT ----- ------- Name: Irene Garcia ?Age/Sex: 49/F ? : 1975 Unit#: [id number] ?? Attend Dr: Domingo Anderson MD ?Re01/23/25 ?Status: DEP REF ? Location: HO.LNP ?Disch: ? ----- ------- SPEC : [id number] ? RECD: [id number]/[id number] ? STATUS: ??SOUT ? REQ NUM: [id number] ? CHENG: 01/23/252451 ? SUBM DR: Domingo Anderson MD ? ENTERED: ??01/23/256 ?SP TYPE: Pap Smr ?OTHR DR: Lissy Gracia ? ORDERED: ??Pap Smear ? Interpretation ?? Satisfactory for evaluation. ?? Negative for intraepithelial lesion or malignancy. ?? No endocervical cells seen. ?? Fungal organisms consistent with Delores species. ? HPV High Risk: ??Negative ? HPV Genotyping 16: ??Negative ?? HPV Genotyping 18: ??Negative ?Clinical Information LMP:Unknown date Previous PAP test:2023, DEE ? Material Received ?? ThinPrep-Cervical Copies To: ?? Lissy Gracia ?? [address] ?? [place] [address] ?? [phone] ?? Domingo Anderson MD ?? [facility] ?? [address] ?? [place] [address] ?? [phone] ----- ------- Signed (signature on file) GABI Jasmine ([facility]) 01/28/25 1046 ? ----- ------- ? END OF REPORT ? Generic External Data Provider LAB CYTOLOGY AROLDO TSAI Final Result [facility] [address] [place] [phone] * T-SPOT??.TB (11/25/2024 9:40 AM EST) [facility] T Spot TB Negative Negative [facility] Comment:A negative test resu [...] as aquantitative test. TS PANEL A 0 [facility] TS PANEL B 0 [facility] Negative Control Passed [facility] Positive Control Passed [facility] Comment:For additional infor bobby, please refer [email or web address]/EHY394(This link is being provided for informational/educational purposes only.)THIS TEST WAS PERFORMED AT:[id number] [place] [id number] Delroy MAXWELL MD,PHD 11/25/2024 9:40 AM EST 11/25/2024 11:06 AM EST Lissy Gracia MD LAB BLOOD ORDERABLES Final Res ult Performing Organization Address [facility] de Phone Number [facility] [address] [place] [phone] * (ABNORMAL) Reticulocyte Count (11/25/2024 9:40 AM EST) Reticulocytes Absolute 0.072 0.026 - 0.095 X10*6/uL [facility] Immature Retic Fraction 15.0 3.0 - 15.9 % [facility] Retic HGB Equivalent 27.9(L) 30.0 - 35.0 pg [facility] Reticulocyte Percent 1.4 0.5 - 1.8 % [facility] Blood Venous blood specimen / Unknown 11/25/2024 9:40 AM EST 11/25/2024 11:06 AM EST Lissy Gracia MD LAB BLOOD ORDERABLES Final Res ult Performing Organization Address [facility] Co de Phone Number [facility] [address] [place] [phone] * Ferritin (11/25/2024 9:40 AM EST) Ferritin 22 10 - 250 ng/mL [facility] Blood Venous blood specimen / Unknown 11/25/2024 9:40 AM EST 11/25/2024 11:06 AM EST us Lissy Gracia MD LAB BLOOD ORDERABLES Final Res ult Performing Organization Address [facility]/ZIP Co de Phone Number [facility] [address] [place] [phone] * Influenza B (ID NOW Rapid Molecular) (11/14/2024 1:52 PM EST) Only the most recent of2 resultswithin the time period is included. Influenza B Negative Negative, Indeterminate [facility] Swab 11/14/2024 1:52 PM EST Candice Moreland DO POINT OF CARE TEST ENTER/GOPAL T ORDERABLES Final Result Performing Organization Address [facility] Co de Phone Number [facility] [address] [place] [phone] * Influenza A (ID NOW Rapid Molecular) (11/14/2024 1:52 PM EST) Only the most recent of2 resultswithin the time period is included. Influenza A Negative Negative, Indeterminate [facility] Swab 11/14/2024 1:52 PM EST Candice Moreland DO POINT OF CARE TEST ENTER/GOPAL T ORDERABLES Final Result Performing Organization Address [facility] Co de Phone Number [facility] [address] [place] [phone] * POCT Rapid COVID Ag (11/14/2024 1:52 PM EST) Only the most recent of2 resultswithin the time period is included. Rapid COVID Ag Negative [facility] Swab 11/14/2024 1:52 PM EST Candice Aniceto DO POINT OF CARE TEST ENTER/GOPAL T ORDERABLES Final Result Performing Organization Address [facility] Co de Phone Number [facility] [address] [place] [phone] * POCT rapid strep A manually resulted (11/14/2024 1:52 PM EST) Rapid Strep A Screen Negative Negative, None Detected [facility] Swab 11/14/2024 1:52 PM EST Candice Aniceto DO POINT OF CARE TEST ENTER/GOPAL T ORDERABLES Final Result Performing Organization Address [facility] Number [facility] [address] [place] [phone] * (ABNORMAL) Hemoglobin A1c (10/22/2024 3:49 PM EST) Hemoglobin A1c 8.7(H) <6.0 % [facility] Comment:Hemoglobin A1C Refer ence Range Adults: 4.8 - 6.0 % Non diabetic: < 6.0 % Goal: < 7.0 %Additional Action Suggested: > 8.0 %Note: Hemoglobin A1c results are invalid for patients with abnormal amounts of HbF. Blood transfusions may impact the HbA1c concentration in the patient sample. Estimated Average Glucose 203 mg/dL [facility] Comment:eAG = Estimated ave rage glucose which is %A1C expressed asaverage glucose, using the formula of the K0Y-PybnkrdSyajsop Glucose study (ADAG), Diabetes Care, Vol.31,#8,May. 2007 Blood Venous blood specimen / Unknown 10/22/2024 3:49 PM EST 10/22/2024 5:46 PM EST Lissy Gracia MD LAB BLOOD ORDERABLES Final Res ult Performing Organization Address [facility] Co de Phone Number [facility] [address] [place] [phone] * BI Mammogram Screening Tomosynthesis Bilateral (01/11/2024 2:45 PM EDT) Anatomical Region Laterality Modality Breast Bilateral Mammography 01/11/2024 2:45 PM EDT Narrative 02/06/2024 6:07 AM EDT ? [facility] ? [address] ?[place] [address] ? Mammography Report ? Signed ? Patient: Irene Garcia ?MR#: ?? [id number] ? : 1975 ?Acct:[id number] ? Age/Sex: 48 / F ?ADM Date: 01/11/24 ? Loc: HO.MAMMO ? Attending Dr: Lissy Gracia MD ? Ordering Physician: Lissy Gracia ?Results: 1Negative ? Date of Service: 01/11/24 ?Follow Up: 1 Year From Orig ?? inal Mammogram ? Procedure(s): MM tomosynthesis screening BI ?? Accession Number(s): [id number] ? cc: Lissy Gracia ? EXAMINATION: ?? [...] 0604 ? DD/ 1445 ? TD/TT: ? Surveillance Sensor Officer: ? Procedure Note Donleonel, Image - 02/06/2024 [facility] [address] [place] [address] Mammography Report Signed Patient: Irene Garcia#: [id number] : 1975Acct:[id number] Age/Sex: 48 / FADM Date: 01/11/24 Loc: [facility] Attending Dr: Lissy Gracia MD Ordering Physician: Rodriguez Graciaults: 1Negative Date of Service: 01/11/24Follow Up: 1 Year From Orig inal Mammogram Procedure(s): MM tomosynthesis screening BI Accession Number(s): [id number] cc: Lissy Gracia EXAMINATION: MM SCREENING DIGITAL [...] in OV> 02/06/24 0604 DD/ 1445 TD/TT: Surveillance Sensor Officer: Lissy Gracia MD IMG BI PROCEDURES Final Result * Lipid Panel, Standard (12/25/2023 9:46 AM EDT) Triglycerides 44 <150 mg/dL [facility] Comment:Desirable Triglyceri de: less than 150 mg/dLBorderline High Triglyceride 150-199 mg/dLHigh Triglyceride: 200-499 mg/dLVery High Triglyceride: greater than or equal to 5OO mg/dL Cholesterol 145 <200 mg/dL [facility] Comment:Desirable Cholestero l: less than 200 mg/dLBorderline High Cholesterol: 200-239 mg/dLHigh Cholesterol: greater than 239 mg/dL LDL Cholesterol Calculated 64 <100 mg/dL [facility] Comment:Desirable LDL: less than 100 mg/dLNear Optimal/Above Optimal LDL: 110- 129 mg/dLBorderline High LDL: 130-159 mg/dLHigh LDL: 160-189 mg/dLVery High LDL: greater than or equal to 190 mg/dL HDL Cholesterol 73 >40 mg/dL [facility] Comment:Desirable HDL: great er than 40 mg/dL Note: This HDL assay may give artificially low results in patients with liver disease. Blood Venous blood specimen / Unknown 12/25/2023 9:46 AM EDT 12/25/2023 11:04 AM EDT Lissy Gracia MD LAB BLOOD ORDERABLES Final Res ult Performing Organization Address [facility] de Phone Number [facility] [address] [place] [phone] * Albumin, Random Urine W/Creatinine (11/06/2023 2:33 PM EST) Creatinine, Urine 59.51 mg/dL [facility] Microalbumin Urine 14.0 mg/L [facility] Microalbum Creatinine Ratio Ur 23.5 <30 ug/mg cr [facility] Comment:Albumin/Creatinine R atio Reference Ranges: Normal: < 30 ug/mg creatinine Microalbuminuria: 30 - 300 ug/mg creatinineClinical Albuminuria: > 300 ug/mg creatinine Urine (Urine, Random) 11/06/2023 2:33 PM EST 11/06/2023 4:16 PM EST Lissy Gracia MD LAB URINE ORDERABLES Final Res ult Performing Organization Address [facility] Co de Phone Number [facility] [address] [place] [phone] * HEPATITIS C ANTIBODY (06/16/2020 12:35 PM EDT) HEPATITIS C ANTIBODY [facility] Comment: Antibodies to HCV not detected; does not exclude early acute HCV infection. 06/16/2020 12:3 5 PM EDT Herb Morales MD HISTORICAL/NON ORDERABLE LABS Final Result Performing Organization Address [facility] de Phone Number [facility] [address] * HIV AB/AG (06/16/2020 12:35 PM [...] detection of this assay. ?? The [employer] Tight Rope Walker HIV Ag/Ab Combo assay result and supplemental assay results should be interpreted in conjunction with the patient's clinical presentation, history and other laboratory results. ??If the results are inconsistent with clinical evidence, additional testing is suggested to confirm the result. 06/16/2020 12:3 5 PM EDT us Historical Provider HISTORICAL/NON ORDERABLE LABS Final Result Performing Organization Address City/State/[facility] Co ri Phone Number [facility] [address] from Last 3 Months or Most Recently Relevant to Health Maintenance Insurance [facility] C3 HSN PARTIAL DENTAL[facility] MED[facility] STAND ADULT Care Teams Torch Burner Relationship Specialty Start Date End Date Lissy Gracia MD [address] [place] [address] PCP - General Family Medicine 06/07/21 Reinaldo Persaud, LILIANE [address] [place] [address] Hr Shared Services ConsultantCan Pusher 11/05/24
--- OUTSIDE RECORDS SUMMARY | 2025-01-30 11:54 | XMS_ITS | Encounter Summary ---
Author Organization [employer] [facility] Address [address] [facility] [address] 7t [place] [address] Care Team Providers Care Civil Engineering Assistant Name Role Phone Lissy Gracia MD Primary Care Provider [phone] Reinaldo Persaud RN Unavailable [phone] Reason for Visit * Reason Comments Med Refill Encounter Details Date Type Department Care Team (Late st Contact Info) Description 05/12/2023 Refill [facility] [address] [place] [address] [phone] Lissy Gracia MD [address] [place] [address] [phone] Social History Tobacco Use Types Packs/Day Years [...] Description 03/14/2025 2:15 PM EDT Office Visit [facility] [address] [place] [address] [phone] Lissy Gracia MD [address] [place] [address] [phone] documented as of this encounter Visit Diagnoses Not on filedocumented in this encounter Care Teams Civil Engineering Assistant Relationship Specialty Start Date End Date Lissy Gracia MD [address] [place] [address] PCP - General Family Medicine 06/07/21 Reinaldo Persaud RN [address] [place] [address] Dice SpotterNewsagent 11/05/24 documented as of this encounter
--- OUTSIDE RECORDS SUMMARY | 2025-01-30 11:54 | XMS_ITS | Encounter Summary ---
Author Organization [employer] [facility] Address [address] [facility] [address] [address] 7t [place] [address] Care Team Providers Care Vice Provost Name Role Phone Lissy Gracia MD Primary Care Provider [phone] Reinaldo Persaud RN Unavailable [phone] Reason for Visit * Reason Comments Med Refill Encounter Details Date Type Department Care Team (Late st Contact Info) Description 12/26/2022 Refill [facility] [address] [place] [address] Adriana Ramesh MD [address] [place] [address] [phone] Primary hypertension Social History Tobacco Use Types [...] Description 03/14/2025 2:15 PM EDT Office Visit [facility] [address] [place] [address] Lissy Gracia MD [address] [place] [address] documented as of this encounter Visit Diagnoses Diagnosis Primary hypertension Unspecified essential hypertension documented in this encounter Care Teams Vice Provost Relationship Specialty Start Date End Date Lissy Gracia MD [address] [place] [address] PCP - General Family Medicine 06/07/21 Reinaldo Persaud RN [address] [place] [address] Floor FramerSales Counselor 11/05/24 documented as of this encounter
--- OUTSIDE RECORDS SUMMARY | 2025-01-30 11:54 | XMS_ITS | Encounter Summary ---
Author Organization [employer] Address [address] [facility] [facility] [address] 7t [place] [address] Care Team Providers Care Expert Witness Name Role Phone Lissy Gracia MD Primary Care Provider [phone] Reinaldo Persaud RN Unavailable [phone] Encounter Details Date Type Department Care Team ([facility] st Contact Info) Description 01/23/2025 Orders Only GENERIC EXTERNAL DATA DEPARTMENT [...] 03/14/2025 2:15 PM EDT Office Visit [facility] [address] [place] [address] Lissy Gracia MD [address] [place] [address] documented as of this encounter Procedures Procedure Name Priority Date/Time Associated Diagnosis Comments HPV DNA, LOW/HIGH RISK Routine 01/23/2025 9:45 AM EDT PAP SMEAR Routine 01/23/2025 9:45 AM EDT documented in this encounter Results * HPV DNA, Low/High Risk (01/23/2025 9:45 AM EDT) HPV High Risk Negative Negative [facility] HPV Genotype 16 Negative Negative [facility] HPV Genotype 18 Negative Negative [facility] Comment:HPV testing performe d at [facility] (CLIA#[id number]), [address] [place] [address].Testing for HPV was performed using the Lur[employer] [...] ORDERAB LES Final Result Performing Organization Address City/State/[facility] Co de Phone Number [facility] [address] [place] [phone] * Pap Smear (01/23/2025 9:45 AM EDT) 01/23/2025 9:45 AM EDT 01/23/2025 1:56 PM EDT Narrative [facility] - 01/28/2025 10:46 AM EDT ----- ------- Name: Irene Garcia ?Age/Sex: 49/F ? : 1975 Unit#: [id number] ?? Attend Dr: Domingo Anderson MD ?Re01/23/25 ?Status: DEP REF ? Location: HO.LNP ?Disch: ? ----- ------- SPEC : [id number] ? RECD: 01/23/252 ? STATUS: ??SOUT ? REQ NUM: [id number] ? CHENG: 01/23/251480 ? SUBM DR: Domingo Anderson MD ? ENTERED: ??01/23/259526 ?SP TYPE: Pap Smr ?OTHR DR: Lissy [...] Copies To: ?? Lissy Gracia ?? [address] ?? [place] [address] ?? [phone] ?? Domingo Anderson MD ?? [facility] ?? [address] ?? [place] [address] ?? [phone] ----- ------- Signed (signature on file) GABI Jasmine ([facility]) 01/28/25 1046 ? ----- ------- ? END OF REPORT ? us Generic External Data Provider LAB CYTOLOGY AROLDO TSAI Final Result [facility] [address] [place] [phone] [phone] documented in this encounter Visit Diagnoses Not on filedocumented in this encounter Additional Health Concerns Assessment Noted Time PHQ-9 Depression Total Score: 0 02/05/20 24 1:47 PM EDT documented as of this encounter Care Teams Expert Witness Relationship Specialty Start Date End Date Lissy Gracia MD [address] [place] [address] PCP - General Family Medicine 06/07/21 Reinaldo Persaud RN [address] [place] [address] Braille TranscriberOven Heater Helper 11/05/24 documented as of this encounter
--- OUTSIDE RECORDS SUMMARY | 2025-01-30 11:54 | XMS_ITS | Encounter Summary ---
Author Organization [employer] Address [address] [facility] [address] [facility] [address] 7t [place] [address] Care Team Providers Care Healthcare Economics Manager Name Role Phone Lissy Gracia MD Primary Care Provider [phone] Reinaldo Persaud RN Unavailable [phone] Reason for Visit * Reason Onset Date Comments Med Refill 06/20/2024 Encounter Details Date Type Department Care Team ([facility] st Contact Info) Description 06/20/2024 Telephone [facility] [address] [place] [address] Lissy Gracia MD [address] [place] [address] Med Refill Social History Tobacco Use Types [...] solution pen-injector To be sent to: [facility] [place], [place] - [address] [facility] documented in this encounter Plan of Treatment Upcoming Encounters Date Type Department Care Team (Late st Contact Info) Description 03/14/2025 2:15 PM EDT Office Visit [facility] [address] [place] [address] Lissy Gracia MD [address] [place] [address] documented as of this encounter Visit Diagnoses Not on filedocumented in this encounter Additional Health Concerns Assessment Noted Time PHQ-9 Depression Total Score: 0 02/05/20 24 1:47 PM EDT documented as of this encounter Care Teams Healthcare Economics Manager Relationship Specialty Start Date End Date Lissy Gracia MD [address] [place] [address] PCP - General Family Medicine 06/07/21 Reinaldo Persaud RN [address] [place] [address] Handicapped TeacherRenewals Representative 11/05/24 documented as of this encounter
--- OUTSIDE RECORDS SUMMARY | 2025-01-30 11:54 | XMS_ITS | Clinical Summary ---
Author Organization [facility] Address [address] [place] [address] Care Team Providers Care Hydrator Name Role Phone Unavailable Primary Care Provider [...]
--- OUTSIDE RECORDS SUMMARY | 2025-01-30 11:54 | XMS_ITS | Encounter Summary ---
Author Organization [employer] Address [address] [facility] [address] 7t [place] [address] Care Team Providers Care Dining Car Waiter/Waitress Name Role Phone Lissy Gracia MD Primary Care Provider [phone] Reinaldo Persaud RN Unavailable [phone] Encounter Details Date Type Department Care Team ([facility] st Contact Info) Description 01/19/2024 Telephone [facility] [address] [place], [place] [phone] Lissy Gracia MD [address] [place] [address] Social History Tobacco Use Types Packs/Day Years [...] Description 03/14/2025 2:15 PM EDT Office Visit [facility] [address] [place] [address] Lissy Gracia MD [address] [place] [address] documented as of this encounter Visit Diagnoses Not on filedocumented in this encounter Additional Health Concerns Assessment Noted Time PHQ-9 Depression Total Score: 0 06/09/20 3:37 PM EDT documented as of this encounter Care Teams Dining Car Waiter/Waitress Relationship Specialty Start Date End Date Lissy Gracia MD [address] [place] [address] PCP - General Family Medicine 06/07/21 Reinaldo Persaud RN [address] [place] [address] Gasoline Plant OperatorJazz Musician 11/05/24 documented as of this encounter
--- OUTSIDE RECORDS SUMMARY | 2025-01-30 11:54 | XMS_ITS | Encounter Summary ---
Author Organization [facility] [facility] Address [address] [facility] 7t [place] [address] Care Team Providers Care Tourist Home Keeper Name Role Phone Lissy Gracia MD Primary Care Provider [phone] Reinaldo Persaud RN Unavailable Reason for Visit * Reason Comments Med Refill Encounter Details Date Type Department Care Team (Late st Contact Info) Description 12/25/2022 Refill [facility] [address] [place] [address] Adriana Ramesh MD [address] [place] [address] [phone] Social History Tobacco Use Types Packs/Day Years [...] 2:15 PM EDT Office Visit [facility] [address] [place] [address] Lissy Gracia MD [address] [place] [address] documented as of this encounter Visit Diagnoses Not on filedocumented in this encounter Care Teams Tourist Home Keeper Relationship Specialty Start Date End Date Lissy Gracia MD [address] [place] [address] PCP - General Family Medicine 06/07/21 Reinaldo Persaud RN [address] [place] [address] Sales AmbassadorSales Service Route Manager 11/05/24 documented as of this encounter
--- OUTSIDE RECORDS SUMMARY | 2025-01-30 11:54 | XMS_ITS | Encounter Summary ---
Author Organization [email or web address] Address [address] [facility] [address] 7t [place] [address] Care Team Providers Care Angio Technologist Name Role Phone Lissy Gracia MD Primary Care Provider [phone] Reinaldo Persaud RN Unavailable [phone] Reason for Visit * Reason Comments Med Refill Encounter Details Date Type Department Care Team ([facility] st Contact Info) Description 08/19/2024 Refill [facility] [address] [place] [address] Adriana Ramesh MD [address] [place], [place] [phone] Type 2 diabetes mellitus with hyperglycemia, without long-term current use of insulin ([facility]) Social History Tobacco Use Types Packs/Day [...] 2:15 PM EDT Office Visit [facility] [address] [place] [address] Lissy Gracia MD [address] [place] [address] documented as of this encounter Visit Diagnoses Diagnosis Type 2 diabetes mellitus with hyperglycemia, without long-term current use of insulin ([facility]) documented in this encounter Additional Health Concerns Assessment Noted Time PHQ-9 Depression Total Score: 0 02/05/20 24 1:47 PM EDT documented as of this encounter Care Teams Angio Technologist Relationship Specialty Start Date End Date Lissy Gracia MD [address] [place] [address] PCP - General Family Medicine 06/07/21 Reinaldo Persaud RN [address] [place] [address] Senior Hadoop DeveloperMarketing Administrative Assistant 11/05/24 documented as of this encounter
--- OUTSIDE RECORDS SUMMARY | 2025-01-30 11:54 | XMS_ITS | Encounter Summary ---
Author Organization [facility] Address [address] [address] 7t [place] [address] Care Team Providers Care Termite Helper Name Role Phone Lissy Gracia MD Primary Care Provider [phone] Reinaldo Persaud RN Unavailable [phone] Reason for Visit * Reason Comments Med Refill Encounter Details Date Type Department Care Team ([facility] st Contact Info) Description 12/20/2023 Refill [facility] [address] [place], [place] [phone] Lissy Gracia MD [address] [place], [place] [phone] Chronic bilateral low back pain, unspecified whether [...] Description 03/14/2025 2:15 PM EDT Office Visit [facility] [address] [place] [address] Lissy Gracia MD [address] [place] [address] documented as of this encounter Visit Diagnoses Diagnosis Chronic bilateral low back pain, unspecified whether sciatica present documented in this encounter Additional Health Concerns Assessment Noted Time PHQ-9 Depression Total Score: 0 06/09/20 23 3:37 PM EDT documented as of this encounter Care Teams Termite Helper Relationship Specialty Start Date End Date Lissy Gracia MD [address] [place] [address] PCP - General Family Medicine 06/07/21 Reinaldo Persaud RN [address] [place] [address] Farm Forestry And Garden WorkersOral Health Therapist 11/05/24 documented as of this encounter
--- OUTSIDE RECORDS SUMMARY | 2025-01-30 11:54 | XMS_ITS | Encounter Summary ---
Author Organization [employer] Address [address] [place] [address] 7t [place] [address] Care Team Providers Care Echocardiograph Tech Name Role Phone Lissy Gracia MD Primary Care Provider [phone] Reinaldo Persaud RN Unavailable [phone] Reason for Visit * Reason Comments Med Refill Encounter Details Date Type Department Care Team (Late st Contact Info) Description 06/13/2023 Refill [facility] [address] [place] [address] [phone] Chari Murray FNP [address] [place] [address] Dept [place] [address] Mild persistent asthma without complication Social History [...] 03/14/2025 2:15 PM EDT Office Visit [facility] [address] [place], [place] [phone] Lissy Gracia MD [address] [place] [address] documented as of this encounter Visit Diagnoses Diagnosis Mild persistent asthma without complication documented in this encounter Additional Health Concerns Assessment Noted Time PHQ-9 Depression Total Score: 0 06/09/20 23 3:37 PM EDT documented as of this encounter Care Teams Echocardiograph Tech Relationship Specialty Start Date End Date Lissy Gracia MD [address] [place] [address] PCP - General Family Medicine 06/07/21 Reinaldo Persaud RN [address] [place] [address] Punchboard StufferMelter Loader 11/05/24 documented as of this encounter
--- OUTSIDE RECORDS SUMMARY | 2025-01-30 11:54 | XMS_ITS | Continuity of Care Document ---
Author Organization [facility] Address [address] [place] [address] Phone Care Team Providers Care Clinical Informaticist Name Role Phone Madatovian, DO DO, Har[place] [...] Test strips apply 1 not specified by [facility].(non-drug; combo) route 3 times every day 1 [...] Diagnoses Date Provider Providers Copied on Encounter [facility], [address], [place], [place], [id number], [place] tel:[phone] [place] No Information 1 Madatovian, DO Harut. [address] [facility] [address], [place], [address]. tel:[phone] [facility], [address], [place], [place], [id number], [place] tel:[phone] [address] No Information Dec-0 - 0 Madatovian, DO Harut. [address] [facility] [address], [place], [address]. tel:[phone] OV 15 MIN M/F [facility], [address], [place], [place], [id number], [place] tel:[phone] [place] Lab results (chief complaint) Insulin dependent diabetes mellitusLong term (current) use of insulinHyperlip idemia, unspecified hyperlipidemia type Madatovian, DO Harut. [address], [address]. tel:[phone] [facility], [address], [place], [place], [id number], [place] tel:[phone] [place] Blood work only (chief complaint) No Information No Information OV 20 MIN M/F [facility], [address], [place], [place], [id number], [place] tel:[phone] [facility] blood test (chief complaint) weight loss (chief complaint) Encntr for general adult medical exam w/o abnormal findingsWeight lossHistory of uterine fibroid Madatovian, DO Har[place]. [address] [facility] [address], [place], [address]. tel:[phone] Family History Family Member Type Diagnosis Age At Onset No Information Payers Payer name Insurance type Covered constitution party ID Authoriza tion(s) No Information Social History Type Description Quantity Date Captured Comments Sex Female Smoking Status No Information Chief Complaint And Reason For Visit No Information Reason For Referral Reason For Referral No Information Plan Of Treatment Date Type Action Status Goal Lipid panel. Due on due Goal Dilated eye exam. Due on May due Goal Urine microalbumin. Due on A due Goal Dental exam. Due on due Goal GFR. Due on due Goal Foot exam. Due on 9 due Goal Hemoglobin A1C. Due on due Goal Influenza vaccine. Due on due Goal Pneumococcal vaccine. Due on due Goal Depression screening. [...] due Goal Lipid panel. Due on due Future Order: Lab Order CBC (INC LUDES DIFF/PLT) ([id number]), Ordered on: Ordered Future Order: Lab Order COMPREHE NSIVE METABOLIC PANEL ([id number]), Ordered on: Ordered Future Order: Lab Order HEMOGLOB IN A1C (496), Ordered on: Ordered Future Order: Lab Order LIPID PA BECCA ([id number]), Ordered on: Ordered Future Order: Lab Order THYROID PANEL WITH TSH, 3RD GENERATION ([id number]), Ordered on: Ordered Future Order: Lab Order URINALYS IS, COMPLETE ([id number]), Ordered on: Ordered Future Order: Lab Order C-REACTI VE PROTEIN ([id number]), Ordered on: Ordered Future Order: Lab Order SED RATE BY MODIFIED WESTERGREN (319), Ordered on: Ordered Future Order: Lab Order [...]
--- OUTSIDE RECORDS SUMMARY | 2025-01-30 11:54 | XMS_ITS | Encounter Summary ---
Author Organization [employer] Address [address] [facility] [address] [place] [address] Care Team Providers Care Wash Test Checker Name Role Phone Lissy Gracia MD Primary Care Provider [phone] Reinaldo Persaud RN Unavailable [phone] Reason for Visit * Reason Onset Date Comments Appointment Request 10/17/2023 Encounter Details Date Type Department Care Team ([facility] st Contact Info) Description 10/17/2023 Telephone [facility] MED[facility] [address] [place], [place] [phone] Lissy Gracia MD [address] [place], [place] [phone] Appointment Request Social History Tobacco Use Types [...] follow up . 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 documented in this encounter Plan of Treatment Upcoming Encounters Date Type Department Care Team (Late st Contact Info) Description 03/14/2025 2:15 PM EDT Office Visit [facility] MED[facility] [address] [place] [address] Lissy Gracia MD [address] [place] [address] documented as of this encounter Visit Diagnoses Not on filedocumented in this encounter Additional Health Concerns Assessment Noted Time PHQ-9 Depression Total Score: 0 06/09/20 23 3:37 PM EDT documented as of this encounter Care Teams Wash Test Checker Relationship Specialty Start Date End Date Lissy Gracia MD [address] [place] [address] PCP - General Family Medicine 06/07/21 Reinaldo Persaud RN [address] [place] [address] Relations SpecialistCash Applications Associate 11/05/24 documented as of this encounter
--- OUTSIDE RECORDS SUMMARY | 2025-01-30 11:54 | XMS_ITS | Clinical Summary ---
Author Organization [facility] Facility Address [address] [place] [address] Care Team Providers Care Luggage Attendant Name Role Phone Unavailable Primary Care Provider [...] Influenza Vaccine (Season Ended) 2025 Insurance Medicaid MD Medicaid MD
--- OUTSIDE RECORDS SUMMARY | 2025-01-30 11:54 | XMS_ITS | Encounter Summary ---
Author Organization [employer] Address [address] [facility] [address] [place] [address] Care Team Providers Care Turnaround Planner Name Role Phone Lissy Gracia MD Primary Care Provider [phone] Reinaldo Persaud RN Unavailable [phone] Reason for Visit * Reason Onset Date Comments Nurse Triage 05/22/2023 Encounter Details Date Type Department Care Team ([facility] st Contact Info) Description 05/22/2023 Telephone [facility] MEDICINE [address] [place] [address] Lissy Gracia MD 230 [place], [place] [phone] Nurse Triage Social History Tobacco Use Types [...] to report body pain . Patient speaks Polish. Advised triage nurse will call patient back. documented in this encounter Plan of Treatment Upcoming Encounters Date Type Department Care Team (Late st Contact Info) Description 03/14/2025 2:15 PM EDT Office Visit [facility] MEDICINE [address] [place] [address] Lissy Gracia MD [address] [place] [address] documented as of this encounter Visit Diagnoses Not on filedocumented in this encounter Care Teams Turnaround Planner Relationship Specialty Start Date End Date Lissy Gracia MD [address] [place] [address] PCP - General Family Medicine 06/07/21 Reinaldo Persaud RN [address] [place] [address] Sugar Chipper Machine OperatorAuxiliary Engineer 11/05/24 documented as of this encounter
--- OUTSIDE RECORDS SUMMARY | 2025-01-30 11:54 | XMS_ITS | Encounter Summary ---
Author Organization [employer] Address [address] [facility] [address] [place] [address] Care Team Providers Care Research Specialist Name Role Phone Lissy Gracia MD Primary Care Provider [phone] Reinaldo Persaud RN Unavailable [phone] Reason for Referral * Consultation (STAT) - Closed Specialty Diagnoses / Procedures Referred By Contac t Referred To Contact Pulmonary Disease Diagnoses Mild persistent asthma without complication Lissy Gracia MD [address] [place] [address] Phone: tel: fax: [facility] Pulmonary [address] [place], [place] Phone: tel: fax: Referral ID Status Reason Start Date Expiration Date V isits Requested Visits Authorized [id number] Closed Specialty Services Required 09/02/2024 09/02/2025 6 6 Encounter Details Date Type Department Care Team (Late st Contact Info) Description 09/02/2024 Orders Only [facility] MEDICINE [address] [place] [address] Lissy Gracia MD [address] [place] [address] [phone] Mild persistent asthma without complication (Primary Dx) [...] 2:15 PM EDT Office Visit [facility]INE [address] [place], [place] [phone] Lissy Gracia MD 230 [place] [address] Scheduled Referrals Name Type Priority Associated Diagnoses [...] documented as of this encounter Care Teams Research Specialist Relationship Specialty Start Date End Date Lissy Gracia MD [address] [place] [address] PCP - General Family Medicine 06/07/21 Reinaldo Persaud, LILIANE [address] [place] [address] Moving Picture ProducerPublic Health Nutritionist 11/05/24 documented as of this encounter
--- OUTSIDE RECORDS SUMMARY | 2025-01-30 11:54 | XMS_ITS | Encounter Summary ---
Author Organization [employer] [facility] Address [address] [facility] [address] [place] [address] Care Team Providers Care Interventional Physiatrist Name Role Phone Lissy Gracia MD Primary Care Provider [phone] Reinaldo Persaud RN Unavailable [phone] Encounter Details Date Type Department Care Team (Latest Contact Info) Description 04/10/2019 Abstract [facility] CONVERSIONS Dental, Provider, DDS Social History [...] 2:15 PM EDT Office Visit [facility] MEDICINE [address] [place] [address] Lissy Gracia MD [address] [place] [address] documented as of this encounter Visit Diagnoses Not on filedocumented in this encounter Care Teams Interventional Physiatrist Relationship Specialty Start Date End Date Lissy Gracia MD [address] [place] [address] PCP - General Family Medicine 06/07/21 Reinaldo Persaud, LILIANE [address] [place] [address] Fire Prevention InspectorHousekeeper/Custodian/Laundry Worker 11/05/24 documented as of this encounter
--- OUTSIDE RECORDS SUMMARY | 2025-01-30 11:54 | XMS_ITS | Encounter Summary ---
Author Organization [employer] Address [address] [facility] [address] [place] [address] Care Team Providers Care Analysis Internship Name Role Phone Lissy Gracia MD Primary Care Provider Reinaldo Persaud RN Unavailable [phone] Encounter Details Date Type Department Care Team (Latest Contact Info) Description 01/30/2025 Travel Social History Tobacco Use Types Packs/Day [...] [facility] MEDICINE [address] [place] [address] Lissy Gracia MD [address] [place] [address] documented as of this encounter Visit Diagnoses Not on filedocumented in this encounter Additional Health Concerns Assessment Noted Time PHQ-9 Depression Total Score: 0 02/05/20 24 1:47 PM EDT documented as of this encounter Care Teams Analysis Internship Relationship Specialty Start Date End Date Lissy Gracia MD [address] [place] [address] PCP - General Family Medicine 06/07/21 Reinaldo Persaud RN [address] [place] [address] IlluminatorFourdrinier Wire Weaver 11/05/24 documented as of this encounter
--- OUTSIDE RECORDS SUMMARY | 2025-01-30 11:54 | XMS_ITS | Encounter Summary ---
Author Organization [employer] Address [address] [facility] [address] [place] [address] Care Team Providers Care Lumber Piler Operator Name Role Phone Lissy Gracia MD Primary Care Provider [phone] Reinaldo Persaud RN Unavailable [phone] Reason for Visit * Reason Comments Med Refill Encounter Details Date Type Department Care Team ([facility] st Contact Info) Description 11/21/2024 Refill [facility] [address] [place] [address] Candice Moreland DO [address] [place] [address] Social History Tobacco Use Types Packs/Day Years [...] [facility] MEDICINE [address] [place] [address] Lissy Gracia MD [address] [place] [address] documented as of this encounter Visit Diagnoses Not on filedocumented in this encounter Additional Health Concerns Assessment Noted Time PHQ-9 Depression Total Score: 0 02/05/20 24 1:47 PM EDT documented as of this encounter Care Teams Lumber Piler Operator Relationship Specialty Start Date End Date Lissy Gracia MD [address] [place] [address] PCP - General Family Medicine 06/07/21 Reinaldo Persaud RN [address] [place] [address] Senior Service TechnicianSample Wrapper 11/05/24 documented as of this encounter
--- OUTSIDE RECORDS SUMMARY | 2025-01-30 11:54 | XMS_ITS | Encounter Summary ---
Author Organization [employer] [facility] Address [address] [facility] [address] [place] [address] Care Team Providers Care Commissioning Agent Name Role Phone Lissy Gracia MD Primary Care Provider [phone] Reinaldo Persaud RN Unavailable [phone] Reason for Visit * Reason Comments Care Coordination [facility] Ammy bruce telephone call outreach Encounter Details Date Type Department Care Team (Latest Contact Info) Description 01/27/2025 Patient Outreach [facility] MEDICINE [address] [place] [address] Lissy Gracia MD [address] [place] [address] [facility] Coord[facility] telephone [facility] outreach) Social History Tobacco [...] call to patient introducing herself from [facility] CM Department, in regard to remind [...] EDT Office Visit [facility] MEDICINE [address] [place] [address] Lissy Gracia MD [address] [place] [address] documented as of this encounter Visit Diagnoses Not on filedocumented in this encounter Additional Health Concerns Assessment Noted Time PHQ-9 Depression Total Score: 0 02/05/20 24 1:47 PM EDT documented as of this encounter Care Teams Commissioning Agent Relationship Specialty Start Date End Date Lissy Gracia MD [address] [place] [address] PCP - General Family Medicine 06/07/21 Reinaldo Persaud, LILIANE [address] [place] [address] Preservative Filler Machine OperatorFingernail Former 11/05/24 documented as of this encounter
--- OUTSIDE RECORDS SUMMARY | 2025-01-30 11:54 | XMS_ITS | Encounter Summary ---
Author Organization [employer] Address [address] [address] [place] [address] Care Team Providers Care Hospitality Services Manager Name Role Phone Lissy Gracia MD Primary Care Provider [phone] Reinaldo Persaud RN Unavailable [phone] Reason for Visit * Reason Comments Acupuncture Encounter Details Date Type Department Care Team ([facility] st Contact Info) Description 01/30/2025 9:00 AM EDT Office Visit [facility] MEDICINE [address] [place] [address] Irene Singletary MD [address] [place] [address] Chronic migraine without aura without status migrainosus, [...] of this encounter Progress Notes * Irene Signletary MD - 01/30/2025 9:00 AM EDT Subjective Patient ID: Irene Flower is [...] Office Visit [facility] MEDICINE [address] [place] [address] Lissy Gracia MD [address] [place] [address] documented as of this encounter Visit Diagnoses Diagnosis Chronic migraine without aura without status migrainosus, not intractable- Primary Anxiety Anxiety state, unspecified documented in this encounter Additional Health Concerns Assessment Noted Time PHQ-9 Depression Total Score: 0 02/05/20 24 1:47 PM EDT documented as of this encounter Care Teams Hospitality Services Manager Relationship Specialty Start Date End Date Lissy Gracia MD [address] [place] [address] PCP - General Family Medicine 06/07/21 Reinaldo Persaud, LILIANE [address] [place] [address] Infection Control PractitionerElectrical And Instrument Technician 11/05/24 documented as of this encounter
== END 2025-01-30 10:41 | disposition home or self-care (01) ==
LOC: HO.HGS 10:05
PROVIDERS: PCP General Practice; Visit Provider Surgery
DX: D17.0 Benign lipomatous neoplasm of skin and subcutaneous tissue of head, face and neck (principal)
CPT/HCPCS: 99203

== ENCOUNTER → 2025-01-30 10:05 | Outpatient (BNVA) | payer MEDICAID, SELFPAY | PROVIDERS: PCP General Practice; Visit Provider Surgery | DX: D17.0 Benign lipomatous neoplasm of skin and subcutaneous tissue of head, face and neck (principal) | CPT/HCPCS: 99202 ==